=== PATIENT | male | born 1985 | race Caucasian/White ===

== ENCOUNTER 2017-01-03 20:25 | Inpatient (IN) | payer OTHER ==
[2017-01-03] MEDS ORDERED: PANTOPRAZOLE 40 MG/10 ML VIAL IVP STA (20:53)
[2017-01-03] MEDS ORDERED: SODIUM CHLORIDE 0.9% 1,000 ML with MVI, ADULT NO.4 WITH VIT K 10 ML, THIAMINE 100 MG, F... IV ONE ×4 (20:53)
[2017-01-03 21:14] LABS: Basophils # (A) 0.1 k/uL (0-0.2); Basophils % (A) 2 %; CH 34.4; CHCM 33.3; Eosinophils # (A) 0.1 k/uL (0-0.7); Eosinophils % (A) 2 %; HCT 47.8 % (39.0-53.0); HDW 2.21; HGB 15.4 gm/dL (13.0-17.5); Luc % (Auto) 4; Lymphocytes # (A) 1.5 k/uL (1.0-4.8); Lymphocytes % (A) 31 %; MCH 33.5 pg (25.0-35.0); MCHC 32.3 g/dL (31.0-37.0); MCV 103.8 fL (80.0-100.0); Macrocytosis Slight; Mean Platelet Volume 7.4; Monocytes # (A) 0.6 k/uL (0-1.0); Monocytes % (A) 12 %; Neutrophils # (A) 2.5 k/uL (1.3-7.7); Neutrophils % (A) 50 %; RBC 4.61 m/uL (4.30-5.90); RDW 14.7 % (11.5-15.5); WBC 4.9 k/uL (3.8-10.6); WBC (Perox) 4.91
[2017-01-03 21:23] LABS: ALT 181 U/L (21-72); AST 425 U/L (17-59); Alkaline Phosphatase 205 U/L (38-126); Amylase 79 U/L (30-110); Anion Gap 17 mmol/L; Blood Urea Nitrogen 10 mg/dL (9-20); Calcium 8.9 mg/dL (8.4-10.2); Carbon Dioxide 22 mmol/L (22-30); Chloride 109 mmol/L (98-107); Glucose 184 mg/dL (74-99); Non-African American GFR(MDRD) >60 (>60 ml/min/1.73 sqM); Sodium 148 mmol/L (137-145); Total Bilirubin 0.7 mg/dL (0.2-1.3); Total Protein 7.8 g/dL (6.3-8.2)
[2017-01-03 21:30] LABS: Partial Thromboplastin Time 22.7 sec (22.0-30.0); Prothrombin Time 10.1 sec (9.0-12.0)
[2017-01-03 21:34] LABS: Creatine Kinase 690 U/L (55-170)
[2017-01-03 21:35] LABS: Alcohol 511 mg/dL
--- NOTE | 2017-01-03 21:44 | ED ---
Alcohol HPI - General Chief Complaint: Alcohol Stated Complaint: Chest pain,ETOH Time Seen by Provider: 01/03/17 20:27 Source: patient, EMS Mode of arrival: EMS Limitations: no limitations - History of Present Illness Initial Comments: 31-year-old male patient presents to emergency department today by EMS for complaints of chest pain, abdominal pain, and hematemesis. Patient states that he he does drink at least 1 pint of liquor daily. Patient states that he has had at least 1 pint today. Patient states that when he doesn't drink his normal amount he does have vomiting. He states last time this happened was 2 days ago. He states that he did notice some bright red blood in his vomit. Patient states he has been having mid epigastric pain and chest pain since this occurred. Patient states he does occasionally feel short of breath. Patient denies any fever or chills. Patient denies any dizziness, weakness, back pain, constipation, or diarrhea. Patient denies any hematuria, dysuria, urinary urgency, urinary frequency, dark, bloody, or black stools. Patient denies any use of street drugs. - Related Data Allergies Allergy/AdvReac Type Severity Reaction Status Date / Time No Known Allergies Allergy Verified 01/03/17 20:38 Review of Systems ROS Statement: Those systems with pertinent positive or pertinent negative responses have been documented in the HPI. ROS Other: All systems not noted in ROS Statement are negative. Past Medical History Additional Past Medical History / Comment(s): ETOH abuse History of Any Multi-Drug Resistant Organisms: None Reported Past Surgical History: No Surgical Hx Reported Past Psychological History: No Psychological Hx Reported Smoking Status: Current every day smoker Past Alcohol Use History: Abuse, Daily Past Drug Use History: None Reported General Exam Limitations: no limitations General appearance: alert, in no apparent distress, appears intoxicated Head exam: Present: atraumatic, normocephalic, normal inspection Eye exam: Present: normal appearance, PERRL, EOMI. Absent: scleral icterus, conjunctival injection, periorbital swelling ENT exam: Present: normal exam, normal oropharynx, mucous membranes moist Neck exam: Present: normal inspection. Absent: tenderness, meningismus, lymphadenopathy Respiratory exam: Present: normal lung sounds bilaterally. Absent: respiratory distress, wheezes, rales, rhonchi, stridor Cardiovascular Exam: Present: regular rate, normal rhythm, normal heart sounds. Absent: systolic murmur, diastolic murmur, rubs, gallop, clicks GI/Abdominal exam: Present: soft, tenderness (Right upper quadrant, mid epigastric, left upper quadrant abdominal ), normal bowel sounds. Absent: distended, guarding, rebound, rigid, organomegaly (tenderness), mass Extremities exam: Present: normal inspection, full ROM, normal capillary refill. Absent: tenderness, pedal edema, joint swelling, calf tenderness Back exam: Present: normal inspection Neurological exam: Present: alert, oriented X3, CN II-XII intact Psychiatric exam: Present: normal affect, normal mood Skin exam: Present: warm, dry, intact, normal color. Absent: rash Course Vital Signs 01/03/17 01/03/17 01/03/17 20:32 21:05 21:59 Temperature 98.1 F 98.0 F Pulse Rate 129 H 115 H Pulse Rate [ 128 H Negative Retoucher ] Respiratory 18 20 Rate Blood Pressure 151/105 158/98 O2 Sat by Pulse 94 L 96 Oximetry 01/03/17 22:25 Temperature Pulse Rate 118 H Pulse Rate [ Negative Retoucher ] Respiratory 20 Rate Blood Pressure 156/89 O2 Sat by Pulse 98 Oximetry Medical Decision Making - Medical Decision Making 31-year-old male patient presented to emergency department today with complaints of chest pain, abdominal pain, and hematemesis. Labs were performed did show elevated liver enzymes as well as elevated lipase. Patient's alcohol level is 511. Dr. Solis did discuss the case with Dr. London patient will be admitted to [facility]. Dr. Lnodon states he will handle consults tomorrow. CIWA scale and alcohol withdrawal protocol ordered. - Lab Data Result diagrams: 01/03/17 20:30 01/03/17 20:30 Lab Results 01/03/17 01/03/17 01/03/17 Range/Units 20:30 20:30 20:30 WBC 4.9 (3.8-10.6) k/uL RBC 4.61 (4.30-5.90) m/uL Hgb 15.4 (13.0-17.5) gm/dL Hct 47.8 (39.0-53.0) % MCV 103.8 H (80.0-100.0) fL MCH 33.5 (25.0-35.0) pg MCHC 32.3 (31.0-37.0) g/dL RDW 14.7 (11.5-15.5) % Plt Count 241 (150-450) k/uL Neutrophils % 50 % Lymphocytes % 31 % Monocytes % 12 % Eosinophils % 2 % Basophils % 2 % Neutrophils # 2.5 (1.3-7.7) k/uL Lymphocytes # 1.5 (1.0-4.8) k/uL Monocytes # 0.6 (0-1.0) k/uL Eosinophils # 0.1 (0-0.7) k/uL Basophils # 0.1 (0-0.2) k/uL Macrocytosis Slight PT (9.0-12.0) sec INR (<1.2) APTT (22.0-30.0) sec Sodium 148 H (137-145) mmol/L Potassium 4.0 (3.5-5.1) mmol/L Chloride 109 H (98-107) mmol/L Carbon Dioxide 22 (22-30) mmol/L Anion Gap 17 mmol/L BUN 10 (9-20) mg/dL Creatinine 0.80 (0.66-1.25) mg/dL Est GFR (MDRD) Af Amer >60 (>60 ml/min/1.73 sqM) Est GFR (MDRD) Non-Af >60 (>60 ml/min/1.73 sqM) Glucose 184 H (74-99) mg/dL Calcium 8.9 (8.4-10.2) mg/dL Total Bilirubin 0.7 (0.2-1.3) mg/dL AST 425 H (17-59) U/L ALT 181 H (21-72) U/L Alkaline Phosphatase 205 H (38-126) U/L Total Creatine Kinase 690 H (55-170) U/L CK-MB (CK-2) 3.0 H* (0.0-2.4) ng/mL CK-MB (CK-2) Rel Index 0.4 Troponin I <0.012 (0.000-0.034) ng/mL Total Protein 7.8 (6.3-8.2) g/dL Albumin 4.1 (3.5-5.0) g/dL Amylase 79 (30-110) U/L Lipase 619 H (23-300) U/L Serum Alcohol 511 mg/dL 01/03/17 Range/Units 20:30 WBC (3.8-10.6) k/uL RBC (4.30-5.90) m/uL Hgb (13.0-17.5) gm/dL Hct (39.0-53.0) % MCV (80.0-100.0) fL MCH (25.0-35.0) pg MCHC (31.0-37.0) g/dL RDW (11.5-15.5) % Plt Count (150-450) k/uL Neutrophils % % Lymphocytes % % Monocytes % % Eosinophils % % Basophils % % Neutrophils # (1.3-7.7) k/uL Lymphocytes # (1.0-4.8) k/uL Monocytes # (0-1.0) k/uL Eosinophils # (0-0.7) k/uL Basophils # (0-0.2) k/uL Macrocytosis PT 10.1 (9.0-12.0) sec INR 1.0 (<1.2) APTT 22.7 (22.0-30.0) sec Sodium (137-145) mmol/L Potassium (3.5-5.1) mmol/L Chloride (98-107) mmol/L Carbon Dioxide (22-30) mmol/L Anion Gap mmol/L BUN (9-20) mg/dL Creatinine (0.66-1.25) mg/dL Est GFR (MDRD) Af Amer (>60 ml/min/1.73 sqM) Est GFR (MDRD) Non-Af (>60 ml/min/1.73 sqM) Glucose (74-99) mg/dL Calcium (8.4-10.2) mg/dL Total Bilirubin (0.2-1.3) mg/dL AST (17-59) U/L ALT (21-72) U/L Alkaline Phosphatase (38-126) U/L Total Creatine Kinase (55-170) U/L CK-MB (CK-2) (0.0-2.4) ng/mL CK-MB (CK-2) Rel Index Troponin I (0.000-0.034) ng/mL Total Protein (6.3-8.2) g/dL Albumin (3.5-5.0) g/dL Amylase (30-110) U/L Lipase (23-300) U/L Serum Alcohol mg/dL 01/03/17 22:12 EKG obtained at 2032 reveals sinus tachycardia with a ventricular rate of 128, UT interval 1:30, QRS duration 88, QT 308, QTC 449. - Radiology Data Radiology results: report reviewed, image reviewed 2 frontal upright views of the abdomen and pelvis show right diaphragm is excluded from the of view. Some air within the nondistended stomach, small Marge bowel loops. No free air is identified although the right diaphragm is excluded from the field of view. Bones and joints are unremarkable. Impression by Dr. Addison reveals somewhat limited exam, with grossly normal bowel gas pattern and without evidence of free air seen as above. Two-view x-ray of the chest shows unremarkable lungs with no consolidation, pleural spaces unremarkable with no effusion or pneumothorax, as unremarkable no cardiomegaly. Mediastinum is unremarkable, bones and joints are unremarkable , upper abdomen shows minor elevation or eventration of the right diaphragm. Impression by Dr. Addison reveals no acute process within the chest. Disposition Clinical Impression: Alcohol intoxication, Abdominal pain, Pancreatitis Disposition: ADMITTED IP TO THIS [facility] Condition: Fair Referrals: None,Stated [Primary Care Provider] - 1-2 days Decision to Admit Reason: Admit from EC Decision Date: 01/03/17 Decision Time: 22:16
[2017-01-03 21:48] LABS: Troponin I <0.012 ng/mL (0.000-0.034)
[2017-01-03] MEDS ORDERED: NALOXONE 0.4 MG/ML 1 ML VIAL IV PRN (22:00)
[2017-01-03] MEDS ORDERED: LORazepam 2 MG/ML SYRINGE IV PRN ×2 (22:10)
[2017-01-03] MEDS ORDERED: NICOTINE 21MG/24HR PATCH TRANSDERM STA (22:11)
--- NOTE | 2017-01-03 22:44 | XR ---
EXAM: XR Chest, 2 Views CLINICAL HISTORY: Reason: Chest pain. TECHNIQUE: Frontal and lateral views of the chest. COMPARISON: No relevant prior studies available. FINDINGS: Lungs: Unremarkable. No consolidation. Pleural space: Unremarkable. No effusion or pneumothorax. Heart: Unremarkable. No cardiomegaly. Mediastinum: Unremarkable. Bones/joints: Unremarkable. Upper abdomen: Mild elevation or eventration of the right diaphragm. IMPRESSION: No acute process seen within the chest.
--- NOTE | 2017-01-03 22:48 | XR ---
EXAM: XR Abdomen, 1 View CLINICAL HISTORY: Reason: Pain TECHNIQUE: 2 frontal upright views of the abdomen/pelvis were provided. COMPARISON: No relevant prior studies available. FINDINGS: Limitations: The right diaphragm is excluded from the [id number]. There are several EKG wires and leads overlying the abdomen and pelvis. Gastrointestinal tract: There is some air within nondistended stomach, small and large bowel loops. No free air is identified although the right diaphragm is excluded from the [id number]. Bones/joints: Unremarkable. IMPRESSION: Somewhat limited exam, with grossly normal bowel gas pattern and without evidence of free air seen, as above.
[2017-01-04 07:11] LABS: Basophils % (A) 1 %; CH 34.4; CHCM 33.5; Eosinophils # (A) 0.1 k/uL (0-0.7); Eosinophils % (A) 1 %; HDW 2.22; HGB 14.4 gm/dL (13.0-17.5); Luc # (Auto) 0.14; Luc % (Auto) 3; Lymphocytes # (A) 1.4 k/uL (1.0-4.8); Lymphocytes % (A) 31 %; MCHC 31.9 g/dL (31.0-37.0); MCV 103.2 fL (80.0-100.0); Macrocytosis Slight; Mean Platelet Volume 7.4; Monocytes # (A) 0.5 k/uL (0-1.0); Monocytes % (A) 12 %; Neutrophils # (A) 2.4 k/uL (1.3-7.7); Neutrophils % (A) 52 %; RBC 4.36 m/uL (4.30-5.90); RDW 14.8 % (11.5-15.5); WBC 4.6 k/uL (3.8-10.6); WBC (Perox) 4.31
[2017-01-04] MEDS: LORazepam 2 MG/ML SYRINGE IV PRN ×7 (07:18→21:47)
[2017-01-04 07:37] LABS: ALT 177 U/L (21-72); AST 398 U/L (17-59); Alkaline Phosphatase 163 U/L (38-126); Anion Gap 11 mmol/L; Blood Urea Nitrogen 7 mg/dL (9-20); Calcium 8.5 mg/dL (8.4-10.2); Carbon Dioxide 27 mmol/L (22-30); Chloride 104 mmol/L (98-107); Glucose 89 mg/dL (74-99); Non-African American GFR(MDRD) >60 (>60 ml/min/1.73 sqM); Potassium 3.8 mmol/L (3.5-5.1); Sodium 142 mmol/L (137-145); Total Bilirubin 0.8 mg/dL (0.2-1.3); Total Protein 7.5 g/dL (6.3-8.2)
[2017-01-04] MEDS ORDERED: NICOTINE 21MG/24HR PATCH TRANSDERM SCH (09:00)
[2017-01-04] MEDS ORDERED: PANTOPRAZOLE 40 MG/10 ML VIAL IV SCH (09:00)
[2017-01-04] MEDS ORDERED: HALOPERIDOL LACTATE 5 MG/ML 1 ML VIAL IM PRN (13:02)
[2017-01-04] MEDS ORDERED: cloNIDine HCL 0.1 MG TAB PO PRN (16:22)
[2017-01-04] MEDS ORDERED: hydrALAZINE HCL 20 MG/ML 1 ML VIAL IVP PRN (16:22)
[2017-01-04] MEDS ORDERED: SODIUM CHLORIDE 0.9% 1,000 ML with MVI, ADULT NO.4 WITH VIT K 10 ML, THIAMINE 100 MG, F... IV SCH ×4 (16:30)
[2017-01-04 16:51] LABS: Glucose,Whole Blood 98 mg/dL (75-99)
[2017-01-04] MEDS: cloNIDine HCL 0.1 MG TAB PO SCH ×2 (17:49→21:48)
[2017-01-04] MEDS ORDERED: ONDANSETRON 4 MG/2 ML VIAL IVP PRN (18:15)
[2017-01-04] MEDS ORDERED: ENOXAPARIN 40 MG/0.4 ML SYRINGE SQ SCH (18:15)
[2017-01-04] MEDS ORDERED: METOPROLOL TARTRATE 5 MG/5 ML VIAL IVP PRN (20:02)
[2017-01-04 21:15] VITALS: TEMP 98.3
[2017-01-04] MEDS ORDERED: NAPROXEN 250 MG TAB PO SCH (22:00)
[2017-01-04 22:31] VITALS: BP 184/108; PULSE 96; RESP 16
--- NOTE | 2017-01-05 14:38 | HP ---
DATE OF SERVICE: 01/04/2017 Chief complaints are EtOH. HISTORY OF PRESENT ILLNESS: This is a 31-year-old gentleman who has a past medical history of EtOH abuse, was admitted with EtOH abuse. The patient also complaining of some abdominal pain, chest pain and as well as hematemesis. Patient at least takes 1 pint of drinks every day. There is no history of fever , chills or rigors. No history of headache, loss of consciousness. PAST MEDICAL HISTORY: EtOH, history of nicotine dependence. Medications prior to admission include, home medication are none. ALLERGIES: None. FAMILY HISTORY: None. SOCIAL HISTORY: History of alcohol. History of nicotine dependence. REVIEW OF SYSTEM: ENT: No diminished hearing or diminished vision. CARDIOVASCULAR: No angina, otherwise as mentioned earlier. RESPIRATORY: As mentioned earlier. GI: As mentioned earlier. : No dysuria. NERVOUS SYSTEM: No numbness or weakness. ALLERGY/IMMUNOLOGY: No asthma or hay fever. MUSCULOSKELETAL: As mentioned earlier. HEMATOLOGY: No history of anemia. ENDOCRINE: No history of diabetes or hypothyroidism. CONSTITUTIONAL: As mentioned earlier. DERMATOLOGY: Negative. PSYCHIATRY: As mentioned earlier. PHYSICAL EXAM: The patient is alert and oriented x3. The pulse is 109, blood pressure 117/60, respirations 16, temperature is 98.1, pulse ox 93% on room air. HEENT: Conjunctivae normal. NECK: Normal. CARDIOVASCULAR SYSTEM: S1, S2, muffled. RESPIRATORY: Breath sounds diminished at the bases, scattered rhonchi, no crackles. ABDOMEN: Soft, nontender, no mass palpable. LEFT: No edema, no swelling. NERVOUS SYSTEM: No focal deficits. Labs are MCV 103.2, sodium 142, AST is 392 and ALT is 177. ASSESSMENT: 1. Acute alcohol intoxication. 2. Early delirium tremens. 3. Alcoholic hepatitis. 4. History of nicotine dependence. 5. Polysubstance abuse. RECOMMENDATION: In this 31-year-old gentlemen who presented with multiple complex medical issues. Will continue with the current medication, continue with the symptomatic treatment. Local IV fluids. Repeat labs. Social Work consultation. Guarded prognosis because of multiple complex medical issues. Further recommendations to follow. MTDD
--- NOTE | 2017-02-22 07:51 | DS ---
DISCHARGE SUMMARY FINAL DIAGNOSIS: 1. Acute alcohol intoxication. 2. Early delirium tremens. 3. Alcohol hepatitis. 4. History of nicotine dependence. DISCHARGE DISPOSITION: The patient left the hospital AGAINST MEDICAL ADVICE. HISTORY OF PRESENT ILLNESS: This 31-year-old gentleman admitted with alcohol intoxication and multiple other complex medical issues, being closely monitored in ICU but however the patient left the hospital against medical advice. The prognosis remains guarded. Please refer to the previous dictations and staff notes for further information. MMODL / IJN: [id number] /
== END 2017-01-04 23:02 | disposition left against medical advice (07) | DRG 894 ==
LOC: EC 20:25 → 3SUR 23:02 → 6ICU 01-04 16:52
PROVIDERS: ADMIT Internal Medicine; ATTEND Internal Medicine
DX: F10.231 Alcohol dependence with withdrawal delirium (principal); K92.0 Hematemesis; K70.10 Alcoholic hepatitis without ascites; F17.200 Nicotine dependence, unspecified, uncomplicated; Y90.8 Blood alcohol level of 240 mg/100 ml or more; F19.10 Other psychoactive substance abuse, uncomplicated
CPT/HCPCS: 36415; 71020; 74000; 80053; 80320; 82150; 82550; 82553; 83690; 84484; 85025; 85610; 85730; 93005; 96365; 96366; 96375; 99285

== ENCOUNTER 2017-02-05 22:33 | Inpatient (IN) | payer OTHER ==
[2017-02-05] MEDS ORDERED: PANTOPRAZOLE 40 MG/10 ML VIAL IVP STA (22:50)
[2017-02-05] MEDS ORDERED: SODIUM CHLORIDE 0.9% 1,000 ML with MVI, ADULT NO.4 WITH VIT K 10 ML, THIAMINE 100 MG, F... IV ONE ×4 (22:50)
--- NOTE | 2017-02-05 23:28 | ED ---
General Adult HPI <Yaniv Beth - Last Filed: 02/06/17 00:05> - General Source: patient Mode of arrival: EMS Limitations: no limitations <Sheila Price - Last Filed: 02/06/17 00:49> - General Chief complaint: Alcohol Stated complaint: ETOH Time Seen by Provider: 02/05/17 22:43 - History of Present Illness Initial comments: 31-year-old male patient presented to emergency department today after having one episode of hematemesis. Patient states just prior to arrival he had an episode of vomiting of bright red blood. Patient states that he is having some chest and epigastric pain with this. Patient states that he has had hematemesis in the past, however has not followed up with surgeon for further evaluation. The patient does admit to being an alcoholic, states he drinks at least a pint of liquor daily, he admits to being intoxicated at this time. Patient states that he would like help getting treatment for alcohol abuse. Patient states he would like to go to [place]. Patient denies any recent fever, chills, shortness breath, diarrhea, constipation, back pain, numbness, tingling, weakness, hematuria, headache, or visual changes. He denies any dark, bloody, or black stools. He denies any suicidal or homicidal ideation. Denies any use of street drugs. (Sheila Price) - Related Data Home Medications Medication Instructions Recorded Confirmed Ativan Unknown Dose 1 tab PO DAILY PRN 02/05/17 02/05/17 Allergies Allergy/AdvReac Type Severity Reaction Status Date / Time No Known Allergies Allergy Verified 02/05/17 23:37 Review of Systems ROS Other: All systems not noted in ROS Statement are negative. <Yaniv Beth - Last Filed: 02/06/17 00:05> ROS Other: All systems not noted in ROS Statement are negative. <Sheila Price - Last Filed: 02/06/17 00:49> ROS Statement: Those systems with pertinent positive or pertinent negative responses have been documented in the HPI. Past Medical History Past Medical History: Hypertension Additional Past Medical History / Comment(s): ETOH abuse History of Any Multi-Drug Resistant Organisms: None Reported Past Surgical History: No Surgical Hx Reported Past Anesthesia/Blood Transfusion Reactions: No Reported Reaction Past Psychological History: No Psychological Hx Reported Smoking Status: Current every day smoker Past Alcohol Use History: Abuse, Daily Past Drug Use History: None Reported <ShantellSheila freeman - Last Filed: 02/06/17 00:49> General Exam Limitations: no limitations General appearance: alert, in no apparent distress, appears intoxicated Head exam: Present: atraumatic, normocephalic, normal inspection Eye exam: Present: normal appearance, PERRL, EOMI. Absent: scleral icterus, conjunctival injection, periorbital swelling ENT exam: Present: normal exam, normal oropharynx, mucous membranes moist Respiratory exam: Present: normal lung sounds bilaterally. Absent: respiratory distress, wheezes, rales, rhonchi, stridor Cardiovascular Exam: Present: regular rate, normal rhythm, normal heart sounds. Absent: systolic murmur, diastolic murmur, rubs, gallop, clicks GI/Abdominal exam: Present: soft, tenderness (Midepigastric, right upper quadrant, left upper quadrant tenderness), normal bowel sounds. Absent: distended, guarding, rebound, rigid Extremities exam: Present: normal inspection, full ROM, normal capillary refill. Absent: tenderness, pedal edema, joint swelling, calf tenderness Back exam: Present: normal inspection Neurological exam: Present: alert, oriented X3, CN II-XII intact Psychiatric exam: Present: normal affect, normal mood Skin exam: Present: warm, dry, intact, normal color. Absent: rash <Sheila Price - Last Filed: 02/06/17 00:49> Medical Decision Making - Lab Data Result diagrams: 02/05/17 23:09 <Yaniv Beth - Last Filed: 02/06/17 00:05> - Lab Data Result diagrams: 02/05/17 23:55 02/05/17 23:09 <Sheila Price - Last Filed: 02/06/17 00:49> - Medical Decision Making Case discussed with practitioner Tracey vogt, who will admit for Dr. Montiel, covering for hospital call. (Yaniv Beth) 31-year-old male patient presented for evaluation of alcohol intoxication and one episode of hematemesis at home. Patient states that he would like further evaluation of the blood in his vomit as well as assistance with admission to [facility] re[facility] facility. Lab work was performed and did show a hemoglobin of 15.2. Patient did have some increase in lipase level at 322, increased AST at 289, increased ALT at 96. Alk phos is 146. All of these levels are improved from last admission. Patient will be admitted to the hospital for alcohol intoxication as his alcohol level was 488. CIWA and alcohol withdraw protocol entered. GI has been consulted. hide and skin processing worker consult for assistance with [facility] has been entered as well. Case discussed with my attending Dr. Beth we will admit to [facility] hospitalist group. (Sheila Price) - Lab Data Lab Results 02/05/17 02/05/17 02/05/17 Range/Units 23:09 23:09 23:55 WBC 6.7 (3.8-10.6) k/uL RBC 4.34 (4.30-5.90) m/uL Hgb 15.2 (13.0-17.5) gm/dL Hct 44.4 (39.0-53.0) % MCV 102.3 H (80.0-100.0) fL MCH 35.1 H (25.0-35.0) pg MCHC 34.3 (31.0-37.0) g/dL RDW 13.7 (11.5-15.5) % Plt Count 181 (150-450) k/uL Neutrophils % 58 % Lymphocytes % 27 % Monocytes % 7 % Eosinophils % 2 % Basophils % 1 % Neutrophils # 3.9 (1.3-7.7) k/uL Lymphocytes # 1.8 (1.0-4.8) k/uL Monocytes # 0.5 (0-1.0) k/uL Eosinophils # 0.2 (0-0.7) k/uL Basophils # 0.1 (0-0.2) k/uL Macrocytosis Slight PT 10.9 (9.0-12.0) sec INR 1.1 (<1.2) APTT 23.3 (22.0-30.0) sec Sodium 141 (137-145) mmol/L Potassium 5.0 (3.5-5.1) mmol/L Chloride 106 (98-107) mmol/L Carbon Dioxide 22 (22-30) mmol/L Anion Gap 13 mmol/L BUN 8 L (9-20) mg/dL Creatinine 0.70 (0.66-1.25) mg/dL Est GFR (MDRD) Af Amer >60 (>60 ml/min/1.73 sqM) Est GFR (MDRD) Non-Af >60 (>60 ml/min/1.73 sqM) Glucose 122 H (74-99) mg/dL Calcium 8.7 (8.4-10.2) mg/dL Phosphorus 4.3 (2.5-4.5) mg/dL Magnesium 2.0 (1.6-2.3) mg/dL Total Bilirubin 1.2 (0.2-1.3) mg/dL AST 289 H (17-59) U/L ALT 96 H (21-72) U/L Alkaline Phosphatase 146 H (38-126) U/L Total Protein 8.4 H (6.3-8.2) g/dL Albumin 4.3 (3.5-5.0) g/dL Amylase 62 (30-110) U/L Lipase 322 H (23-300) U/L Serum Alcohol 488 mg/dL Disposition <Yaniv Beth - Last Filed: 02/06/17 00:05> Decision to Admit Reason: Admit from EC Decision Date: 02/06/17 Decision Time: 00:32 <Sheila Price - Last Filed: 02/06/17 00:49> Clinical Impression: Alcohol intoxication, Hematemesis Disposition: ADMITTED IP TO THIS [facility] Condition: Fair Referrals: None,Stated [Primary Care Provider] - 1-2 days
[2017-02-05 23:31] LABS: INR 1.1 (<1.2); Partial Thromboplastin Time 23.3 sec (22.0-30.0); Prothrombin Time 10.9 sec (9.0-12.0)
[2017-02-05 23:34] LABS: ALT 96 U/L (21-72); AST 289 U/L (17-59); Alkaline Phosphatase 146 U/L (38-126); Amylase 62 U/L (30-110); Anion Gap 13 mmol/L; Blood Urea Nitrogen 8 mg/dL (9-20); Calcium 8.7 mg/dL (8.4-10.2); Carbon Dioxide 22 mmol/L (22-30); Chloride 106 mmol/L (98-107); Glucose 122 mg/dL (74-99); Non-African American GFR(MDRD) >60 (>60 ml/min/1.73 sqM); Phosphorous 4.3 mg/dL (2.5-4.5); Sodium 141 mmol/L (137-145); Total Bilirubin 1.2 mg/dL (0.2-1.3); Total Protein 8.4 g/dL (6.3-8.2)
[2017-02-05 23:54] LABS: Alcohol 488 mg/dL
[2017-02-06] MEDS ORDERED: THIAMINE 100 MG/ML 2 ML VIAL IM STA (00:25)
[2017-02-06] MEDS ORDERED: LORazepam 2 MG/ML SYRINGE IV PRN ×2 (00:25)
[2017-02-06 00:26] LABS: Basophils # (A) 0.1 k/uL (0-0.2); Basophils % (A) 1 %; CHCM 33.4; Eosinophils # (A) 0.2 k/uL (0-0.7); Eosinophils % (A) 2 %; HCT 44.4 % (39.0-53.0); HDW 2.22; HGB 15.2 gm/dL (13.0-17.5); Luc % (Auto) 4; Lymphocytes # (A) 1.8 k/uL (1.0-4.8); Lymphocytes % (A) 27 %; MCH 35.1 pg (25.0-35.0); MCHC 34.3 g/dL (31.0-37.0); MCV 102.3 fL (80.0-100.0); Macrocytosis Slight; Mean Platelet Volume 7.1; Monocytes # (A) 0.5 k/uL (0-1.0); Monocytes % (A) 7 %; Neutrophils # (A) 3.9 k/uL (1.3-7.7); Neutrophils % (A) 58 %; RBC 4.34 m/uL (4.30-5.90); RDW 13.7 % (11.5-15.5); WBC 6.7 k/uL (3.8-10.6); WBC (Perox) 6.68
[2017-02-06] MEDS ORDERED: NALOXONE 0.4 MG/ML 1 ML VIAL IV PRN (00:26)
--- NOTE | 2017-02-06 00:49 | XR ---
EXAM: XR Abdomen Complete, 2 or More Views CLINICAL HISTORY: Reason: Pain TECHNIQUE: Frontal view of the abdomen/pelvis with upright view of the abdomen. COMPARISON: No relevant prior studies available. FINDINGS: Intraperitoneal space: No free air. Gastrointestinal tract: Nonspecific bowel gas pattern with air fluid levels. Bones/joints: No acute fracture. IMPRESSION: Nonspecific bowel gas pattern with air fluid levels.
[2017-02-06] MEDS ORDERED: NICOTINE 21MG/24HR PATCH TRANSDERM STA (00:52)
[2017-02-06] MEDS: LORazepam 2 MG/ML SYRINGE IV PRN ×6 (01:43→18:54)
[2017-02-06] MEDS: PANTOPRAZOLE 40 MG/10 ML VIAL IV SCH ×2 (08:03→20:08)
[2017-02-06] MEDS ORDERED: PANTOPRAZOLE 40 MG/10 ML VIAL IV SCH (09:00)
[2017-02-06] MEDS ORDERED: NICOTINE 21MG/24HR PATCH TRANSDERM SCH (09:00)
--- NOTE | 2017-02-06 09:37 | P.CONS ---
History of Present Illness - Reason for Consult Consult date: 02/06/17 hematemesis Requesting physician: Itz Norman - History of Present Illness 31-year-old male with a history of IVDA heroin abuse clean for a year, heavy alcohol abuse on a daily basis; vodka, for more than a year presents with abdominal pain blood-tinged emesis 2. Patient attempted to wean himself off of alcohol a few days ago started to shake, vomit. No history of GI bleed. Denies hematochezia or melena. No fever or chills. White count 6.7. Hemoglobin 15.2. Platelet 181 and INR 1.1. BUN 8. Creatinine 0.7. No recurrence of hematemesis since admission. Total bilirubin 1.2. AST 289. ALT 96. Lipase 322. Serum alcohol 488. KUB nonspecific bowel gas pattern. No NSAIDs aspirin antiplatelet medications. Review of Systems Constitutional: Denies fever, chills, sweats, weight gain, or loss. HEENT: Negative for migraines, blurred vision or loss, earaches, drainage, tinnitus, oral mucosal lesions, dysphagia, or odynophagia. Cardiac: Negative for chest pain, arrhythmias, or palpitation. Respiratory: Negative for shortness of breath, hemoptysis, cough, or sputum production. Gastrointestinal: See HPI for pertinent findings. Genitourinary: Negative for hematuria, urgency, frequency, polyuria, dysuria, or penile discharge. Musculoskeletal: Negative for muscle aches, swelling, arthritis, and arthralgias. Neurologic: Negative for stroke or TIA. Endocrine: Negative for thyroid problems. Skin: Negative for rash or itching. Psychiatric: Anxiety. All systems: negative (See HPI) Past Medical History Past Medical History: Hypertension Additional Past Medical History / Comment(s): ETOH abuse, IVDA History of Any Multi-Drug Resistant Organisms: None Reported Past Surgical History: No Surgical Hx Reported Past Anesthesia/Blood Transfusion Reactions: No Reported Reaction Past Psychological History: Anxiety Smoking Status: Current every day smoker Past Alcohol Use History: Abuse, Daily Additional Past Alcohol Use History / Comment(s): REHAB x5 Past Drug Use History: None Reported Additional Drug Use History / Comment(s): CLEAN FROM HEROIN FOR 1 YEAR - Past Family History Father Family Medical History: No Reported History Medications and Allergies Home Medications Medication Instructions Recorded Confirmed Type Ativan Unknown Dose 1 tab PO DAILY PRN 02/05/17 02/05/17 History Allergies Allergy/AdvReac Type Severity Reaction Status Date / Time No Known Allergies Allergy Verified 02/05/17 23:37 Physical Exam Vitals: Vital Signs Temp Pulse Pulse Resp BP BP Pulse Ox 02/06/17 07:00 98.2 F 109 H 18 159/93 96 02/06/17 02:41 110 H 140/92 02/06/17 01:45 98.6 F 117 H 16 146/114 97 02/06/17 01:13 98.4 F 96 16 178/84 100 02/06/17 00:38 94 16 184/87 100 02/05/17 23:41 98.3 F 90 16 155/98 100 02/05/17 22:34 97.8 F 70 16 173/109 100 Intake and Output 02/05/17 02/06/17 02/06/17 22:59 06:59 14:59 Other: # Voids 2 1 Weight 94.801 kg General appearance: The patient is alert, oriented, in no acute distress. HET: Head is normocephalic and atraumatic. Pupils are equal and reactive. Oropharynx is clear without lesions. Neck: Supple without lymphadenopathy. Trachea midline. Heart: S1 S2. Regular rate and rhythm. Lungs: No crackles or wheezes are heard. Abdomen: Soft, very mild midepigastric tenderness, nondistended with bowel sounds. No peritoneal signs. No palpable organomegaly or masses. Extremities: Normal skin color and turgor. No cyanosis, rash, ulceration, clubbing, or edema. Radial and pedal pulses are 2/4 bilaterally. Neurological: No focal deficits. Strength and sensation are grossly intact. Results CBC & Chem 7: 02/05/17 23:55 02/05/17 23:09 Labs: Abnormal Lab Results - Last 24 Hours (Table) 02/05/17 02/05/17 Range/Units 23:09 23:55 MCV 102.3 H (80.0-100.0) fL MCH 35.1 H (25.0-35.0) pg BUN 8 L (9-20) mg/dL Glucose 122 H (74-99) mg/dL AST 289 H (17-59) U/L ALT 96 H (21-72) U/L Alkaline Phosphatase 146 H (38-126) U/L Total Protein 8.4 H (6.3-8.2) g/dL Lipase 322 H (23-300) U/L Assessment and Plan (1) Hematemesis Narrative/Plan: Suspect alcohol gastritis esophagitis possible alcohol gastropathy Status: Acute (2) ETOH abuse Status: Acute (3) Alcoholic hepatitis Status: Acute (4) History of heroin abuse Status: Acute (5) Alcohol intoxication Status: Acute (6) Alcohol withdrawal Status: Acute Plan: 1. Hepatitis panel. [place] protocol. 2. Protonix 40 mg IV twice daily. 3. Clear liquid diet. 4. Upper endoscopy contingent on clinical course. We'll continue to follow closely. Thank you for this kind referral and the opportunity to participate in the care of your patient. This consultation was discussed with Dr. Bean. The impression and plan of care have been directed as dictated.
[2017-02-06 15:18] LABS: Hepatitis B Surface Ag Index 0.08
[2017-02-06 15:22] LABS: Hepatitis B Core IgM Index 0.02
[2017-02-06 15:33] LABS: Hepatitis C Virus IgG Ab Reactive (Negative)
[2017-02-06 16:36] VITALS: BP 144/101; PULSE 116; RESP 20; TEMP 98.8
[2017-02-06] MEDS ORDERED: THIAMINE 100 MG TAB PO SCH (17:00)
--- NOTE | 2017-02-06 18:56 | P.HPIM ---
History of Present Illness H&P Date: 02/06/17 Chief Complaint: Intoxication Is a 31-year-old gentleman with history of alcohol overuse comes in to the hospital with the complaints of the one episode of hematemesis. The patient apparently has been trying to cut down on his alcohol use apparently drinks or fifth of alcohol daily. Patient then noted to have an episode of bloody emesis hence came to the hospital for further workup patient was noted to have a hemoglobin around 15 g per DL No new reports of flow emesis since his hospitalization The patient however was also noted to have a blood alcohol around 489. The patient also was noted to have a reactive hepatitis C Transaminases were also elevated during my evaluation patient states that his symptoms are controlled however does continue to have some headaches and tremoring Patient MC was greater than 104 Denies having any chest pain difficulty breathing nausea vomiting diarrhea A 14 point review of systems was done nonpertinent then all as mentioned above Physical examPhysical exam Gen. appearance oriented 3 in no distress Neck is supple no JVD Lungs good air entry clear to auscultation no rhonchi or wheezing Heart S1-S2 heard regular rate and rhythm no murmurs appreciated Abdomen is soft nontender no organomegaly bowel sounds are intact Neurologically cranial nerves II-12 grossly intact no focal motor or sensory deficits noted Does appear to be slightly anxious pupils equal round reactive light and accommodation Skin no abnormalities appreciated Assessment and plan #1 acute alcohol and patient #2 hematemesis likely due to erosive gastritis #3 hepatitis C #4 underlying B12 deficiency Plan Continue supportive care at this time GI is on auscultation Continue PPI therapy Repeat hemoglobin in the a.m. The patient appears to be stable we'll monitor for at least 24 hours and thereafter discharged the patient home there is a significant drop in hemoglobin patient will likely need an upper endoscopy Past Medical History Past Medical History: Hypertension Additional Past Medical History / Comment(s): ETOH abuse, IVDA History of Any Multi-Drug Resistant Organisms: None Reported Past Surgical History: No Surgical Hx Reported Past Anesthesia/Blood Transfusion Reactions: No Reported Reaction Past Psychological History: Anxiety Smoking Status: Current every day smoker Past Alcohol Use History: Abuse, Daily Additional Past Alcohol Use History / Comment(s): REHAB x5 Past Drug Use History: None Reported Additional Drug Use History / Comment(s): CLEAN FROM HEROIN FOR 1 YEAR - Past Family History Father Family Medical History: No Reported History Medications and Allergies Home Medications Medication Instructions Recorded Confirmed Type Ativan Unknown Dose 1 tab PO DAILY PRN 02/05/17 02/05/17 History Allergies Allergy/AdvReac Type Severity Reaction Status Date / Time No Known Allergies Allergy Verified 02/05/17 23:37 Physical Exam Vitals: Vital Signs Temp Pulse Pulse Resp BP BP Pulse Ox 02/06/17 15:00 98.8 F 116 H 20 144/101 97 02/06/17 07:00 98.2 F 109 H 18 159/93 96 02/06/17 02:41 110 H 140/92 02/06/17 01:45 98.6 F 117 H 16 146/114 97 02/06/17 01:13 98.4 F 96 16 178/84 100 02/06/17 00:38 94 16 184/87 100 02/05/17 23:41 98.3 F 90 16 155/98 100 02/05/17 22:34 97.8 F 70 16 173/109 100 Intake and Output 02/06/17 02/06/17 02/06/17 06:59 14:59 22:59 Other: # Voids 2 4 # Bowel Movements 1 Results CBC & Chem 7: 02/05/17 23:55 02/05/17 23:09 Labs: Abnormal Lab Results - Last 24 Hours (Table) 02/05/17 02/05/17 Range/Units 23:09 23:55 MCV 102.3 H (80.0-100.0) fL MCH 35.1 H (25.0-35.0) pg BUN 8 L (9-20) mg/dL Glucose 122 H (74-99) mg/dL AST 289 H (17-59) U/L ALT 96 H (21-72) U/L Alkaline Phosphatase 146 H (38-126) U/L Total Protein 8.4 H (6.3-8.2) g/dL Lipase 322 H (23-300) U/L Thrombosis Risk Factor Assmnt - Choose All That Apply Any of the Below Risk Factors Present?: Yes Each Factor Represents 1 point: Obesity (BMI >25) Other Risk Factors: No Other congenital or acquired thrombophilia - If yes, enter type in comment: No Thrombosis Risk Factor Assessment Total Risk Factor Score: 1 Thrombosis Risk Factor Assessment Level: Low Risk
== END 2017-02-06 20:30 | disposition left against medical advice (07) | DRG 894 ==
LOC: EC 22:33 → 4MS4W 02-06 00:03 → OBSVTOIN 02-06 09:16
PROVIDERS: ADMIT Internal Medicine; ATTEND Internal Medicine
DX: F10.239 Alcohol dependence with withdrawal, unspecified (principal); K70.10 Alcoholic hepatitis without ascites; E53.8 Deficiency of other specified B group vitamins; K29.60 Other gastritis without bleeding; B19.20 Unspecified viral hepatitis C without hepatic coma; Y90.8 Blood alcohol level of 240 mg/100 ml or more; F17.200 Nicotine dependence, unspecified, uncomplicated
CPT/HCPCS: 36415; 74000; 80053; 80074; 80320; 82075; 82150; 83690; 83735; 84100; 85025; 85610; 85730; 96365; 96366; 96372; 96375; 99285

== ENCOUNTER 2017-03-01 14:39 | Inpatient (IN) | payer OTHER ==
[2017-03-01] MEDS ORDERED: THIAMINE 100 MG/ML 2 ML VIAL IM STA (15:05)
[2017-03-01] MEDS ORDERED: LORazepam 2 MG/ML INJ IV PRN (15:05)
[2017-03-01] MEDS ORDERED: MORPHINE SULFATE 2 MG/ML SYRINGE IVP STA (15:06)
[2017-03-01] MEDS ORDERED: SODIUM CHLORIDE 0.9% 500 ML IV STA (15:06)
[2017-03-01] MEDS ORDERED: NITROGLYCERIN OINT 1 INCH/GM PACKET TOPICAL STA (15:06)
[2017-03-01] MEDS ORDERED: ONDANSETRON 4 MG/2 ML VIAL IVP STA (15:06)
[2017-03-01] MEDS ORDERED: SODIUM CHLORIDE 0.9% 1,000 ML IV STA (15:06)
--- NOTE | 2017-03-01 15:16 | ED ---
Chest Pain HPI - General Chief Complaint: Chest Pain Stated Complaint: Chest Pain Time Seen by Provider: 03/01/17 14:44 Source: patient Mode of arrival: EMS Limitations: no limitations - History of Present Illness Initial Comments: 31 years old male some chest pain for the last 2 days, is worse with a deep breaths, he has been coughing up phlegm as well. He has history of October consumption large amount every day for the lost 2 years, he drinks about 12 shots daily, he stated that he is trying to quit yet only 3 shots today. Or drink was put 5 A.m. he is quite shaky quite nervous and concerned that he is going to the DT,s. He denies any headaches or neck stiffness has chest pain or shortness of breath no abdominal pain no frequency urgency dysuria no sinus symptoms of TIA or CVA - Related Data Home Medications Medication Instructions Recorded Confirmed Naproxen Sodium [Aleve] 220 mg PO BID PRN 03/01/17 03/01/17 Allergies Allergy/AdvReac Type Severity Reaction Status Date / Time No Known Allergies Allergy Verified 03/01/17 15:05 Review of Systems ROS Statement: Those systems with pertinent positive or pertinent negative responses have been documented in the HPI. ROS Other: All systems not noted in ROS Statement are negative. EKG Findings - EKG Comments: EKG Findings:: EKG is sinus tachycardia ventricular rate is 112 MI interval is 138 QRS duration is 88 QT/QTc is 332/453 review of this EKG reveals T-wave inversion in lead [address] elevation or ST depression noticed in the rest of the leads Past Medical History Past Medical History: Hypertension Additional Past Medical History / Comment(s): ETOH abuse, IVDA History of Any Multi-Drug Resistant Organisms: None Reported Past Surgical History: No Surgical Hx Reported Past Anesthesia/Blood Transfusion Reactions: No Reported Reaction Past Psychological History: Anxiety Smoking Status: Current every day smoker Past Alcohol Use History: Abuse, Daily Past Drug Use History: None Reported - Past Family History Father Family Medical History: No Reported History General Exam - General Exam Comments Initial Comments: General: The patient is awake and alert, in no distress, and does not appear acutely ill. He is intoxicated but his GCS is 15 Skin: Skin is warm and dry and no rashes or lesions are noted. Eye: Pupils are equal, round and reactive to light, extra-ocular movements are intact; there is normal conjunctiva bilaterally. Ears, nose, mouth and throat: There are moist mucous membranes and no oral lesions. Neck: The neck is supple, there is no tenderness or trachea is midline, no signs of meningitis Cardiovascular: There is a regular rate and rhythm. No murmur, rub or gallop is appreciated. Respiratory: To auscultation bilateral, noticed some crackles at the bases Gastrointestinal: Soft, non-distended, mild tenderness noticed in the epigastric area Back: There is no tenderness to palpation in the midline. There is no obvious deformity. Musculoskeletal: Normal ROM, no tenderness, There is no pedal edema. There is no calf tenderness or swelling. No cords were appreciated. Neurological: CN II-XII intact, Cranial nerves III through XII are intact. There are no obvious motor or sensory deficits. Coordination appears grossly intact. Speech is normal. Psychiatric: Cooperative, appropriate mood & affect, normal judgment. Limitations: no limitations Course Vital Signs 03/01/17 03/01/17 03/01/17 14:46 15:26 16:35 Temperature 98.1 F Pulse Rate 111 H 114 H 113 H Respiratory 20 20 18 Rate Blood Pressure 158/92 155/84 149/90 O2 Sat by Pulse 93 L 97 95 Oximetry - Reevaluation(s) Reevaluation #1: Social is reassessed at 1715, CT pulmonary and respiratory for any port a embolism, CBC is normal d-dimer was quite elevated GGT is 5451 AST 396 ALT 98. His elevated TROPONIN IS NEGATIVE. CONSIDERING THE ELEVATED LFTS I WENT AHEAD AND OF THE ABDOMEN AND CONSIDERING HER CALL FOR 97%. ADMITTED UNDER THE SERVICE OF SOUTH PHYSICIAN 03/01/17 17:30 Disposition Clinical Impression: Tachycardia, Epigastric pain, Alcohol withdrawal, Chest pain Disposition: ADMITTED IP TO THIS HOSP Condition: Good Referrals: None,Stated [Primary Care Provider] - 1-2 days
[2017-03-01 15:38] LABS: Basophils # (A) 0.1 k/uL (0-0.2); Basophils % (A) 1 %; CH 35.4; CHCM 32.5; Eosinophils % (A) 0 %; HCT 49.6 % (39.0-53.0); HDW 2.37; HGB 15.8 gm/dL (13.0-17.5); Luc # (Auto) 0.17; Luc % (Auto) 3; Lymphocytes # (A) 1.4 k/uL (1.0-4.8); Lymphocytes % (A) 22 %; MCHC 31.9 g/dL (31.0-37.0); Macrocytosis Marked; Mean Platelet Volume 7.8; Monocytes # (A) 0.5 k/uL (0-1.0); Monocytes % (A) 8 %; Neutrophils # (A) 4.1 k/uL (1.3-7.7); Neutrophils % (A) 66 %; RBC 4.52 m/uL (4.30-5.90); RDW 15.7 % (11.5-15.5); WBC 6.3 k/uL (3.8-10.6)
[2017-03-01 15:48] LABS: MCV 109.7 fL (80.0-100.0)
[2017-03-01 15:54] LABS: INR 1.2 (<1.2); Partial Thromboplastin Time 24.4 sec (22.0-30.0); Prothrombin Time 11.5 sec (9.0-12.0)
[2017-03-01 15:59] LABS: Creatine Kinase 297 U/L (55-170)
[2017-03-01 16:01] LABS: ALT 98 U/L (21-72); AST 396 U/L (17-59); Amylase 45 U/L (30-110); Anion Gap 16 mmol/L; Blood Urea Nitrogen 7 mg/dL (9-20); Calcium 8.2 mg/dL (8.4-10.2); Carbon Dioxide 24 mmol/L (22-30); Chloride 106 mmol/L (98-107); Glucose 144 mg/dL (74-99); Magnesium 1.9 mg/dL (1.6-2.3); Manual Review Performed; Non-African American GFR(MDRD) >60 (>60 ml/min/1.73 sqM); Phosphorus 3.2 mg/dL (2.5-4.5); Potassium 3.9 mmol/L (3.5-5.1); Sodium 146 mmol/L (137-145)
[2017-03-01] MEDS ORDERED: RX INFO: IV CONTRAST WAS GIVEN 1 EACH MISC MISCELLANE PRN (16:01)
[2017-03-01 16:11] LABS: Creatine Kinase MB 0.9 ng/mL (0.0-2.4); Troponin I <0.012 ng/mL (0.000-0.034)
[2017-03-01 16:16] LABS: Alcohol 497 mg/dL
--- NOTE | 2017-03-01 16:25 | XR ---
EXAMINATION TYPE: XR chest 2V DATE OF EXAM: 03/01/2017 COMPARISON: 01/03/2017 HISTORY: Chest pain TECHNIQUE: Frontal and lateral views of the chest are obtained. FINDINGS: There is no focal air space opacity, pleural effusion, or pneumothorax seen. Persistent ri ght hemidiaphragm elevation is unchanged from the prior exam. The cardiac silhouette size is within n ormal limits. The osseous structures are intact. IMPRESSION: No acute cardiopulmonary process. Unchanged right hemidiaphragm elevation.
[2017-03-01 16:33] LABS: Appearance,Urine Clear (Clear); Bilirubin,Urine 2+ (Negative); Glucose,Urine (UA) Negative (Negative); Ketones,Urine Negative (Negative); Leukocyte Esterase,Urine Negative (Negative); Mucus,Urine Few /hpf; Nitrite,Urine Negative (Negative); PH, Urine 6.5 (5.0-8.0); Particle Count 3950; Protein,Urine 3+ (Negative); RBC,Urine 1 /hpf (0-5); Specific Gravity,Urine 1.023 (1.001-1.035); UA Billing (MACRO vs. MICRO) MICRO; WBC,Urine 3 /hpf (0-5)
[2017-03-01 16:34] LABS: GGT 5451 U/L (15-73)
--- NOTE | 2017-03-01 16:54 | CT ---
EXAMINATION TYPE: CT angio chest DATE OF EXAM: 03/01/2017 COMPARISON: NONE HISTORY: Patient complains of chest pain CT DLP: 523 mGycm. Automated Exposure Control for Dose Reduction was Utilized. CONTRAST: CTA scan of the thorax is performed with IV Contrast, patient injected with 100 mL of Omnipaque 350, pulmonary embolism protocol. MIP Images are created on CT scanner and reviewed. FINDINGS: LUNGS: The lungs are grossly clear other than areas of scattered subsegmental atelectasis accentuated by low lung volumes, there is no concerning parenchymal mass or nodule identified. There is no ple ural effusion or pneumothorax seen. The tracheobronchial tree is patent. Right hemidiaphragm elevati on is noted. MEDIASTINUM: There is satisfactory enhancement of the pulmonary artery and its branches, there is no CT evidence for pulmonary embolism. There are no greater than 1 cm hilar or mediastinal lymph nodes. No cardiomegaly or pericardial effusion is seen. OTHER: Diffuse hypoattenuation of the hepatic parenchyma is seen compatible with moderate to severe h epatic steatosis. IMPRESSION: 1. No evidence of pulmonary embolus. 2. Low lung volumes creating subsegmental scattered areas of bibasilar atelectasis. Right hemidiaphra gm elevation is also noted. 3. Diffuse hypoattenuation of the hepatic parenchyma compatible with at least moderate to severe hepa tic steatosis.
--- NOTE | 2017-03-01 18:35 | US ---
EXAMINATION TYPE: US abdomen limited DATE OF EXAM: 03/01/2017 COMPARISON: CT CLINICAL HISTORY: Pain. Chest and abdomen pain, N/V EXAM MEASUREMENTS: Liver Length: 19.6 cm Gallbladder Wall: 0.3 cm CBD: 0.4 cm Right Kidney: 10.4 x 5.1 x 5.6 cm Difficult and limited study due to patient body habitus Pancreas: obscured by overlying midline bowel gas Liver: enlarged at 19.6cm, increased echogenicity, increased attenuation, decreased visualization of vessels suggestive of fatty infiltrate, scanned intercostally, limited by rib shadowing . This find ing limits evaluation for hepatic masses. Gallbladder: wnl Evidence for sonographic Erazo's sign: yes CBD: visualized portions wnl, limited by overlying bowel gas Right Kidney: no hydro or masses seen, limited by overlying bowel gas IMPRESSION: Diffusely hyperattenuated hepatic echotexture most commonly related to hepatic steatosis and at least moderate in degree. Patient's body habitus limits visualization, however gallbladder lico ears unremarkable with no sonographic evidence of cholelithiasis or cholecystitis. No right-sided hyd ronephrosis.
--- NOTE | 2017-03-01 18:45 | P.HPIM ---
History of Present Illness H&P Date: 03/01/17 Chief Complaint: Chest pain, concern for withdrawals 31 yo male no significant medical history, came to ED c/o chest pain. Pain started 2-3 days ago, along lower half of both sternal edges, constant, provoked with respiratory movements, especially cough, sharp, non radiating, alleviated with avoiding deep breaths. pt tried Aleve, no improvement. Also noticed heartburn and indigestion. Mild dry cough. no nausea , vomiting, shortness of breath. No fever or chills. Patient has history of alcoholism. He has been treated in rehab few times. Last relapse started a year and a half ago due to some emotional frustration and home situation. He has been drinking 12 shots of vodka daily. today he had 3 shots and was concern to be going into withdrawals as he has felt shaky. No hisotry of DTs or seizures. Denies any home medications. In ED had CXR and CTA chest that were remarkable only for some mild atelectasis. US of liver pending results. pt admitted with ETOH level of 497. Review of Systems Constitutional: Denies chills, Denies chronic headaches, Denies chronic pain, Denies fatigue, Denies fever, Denies sweats Ears, nose, mouth and throat: Denies epistaxis, Denies headache Cardiovascular: Reports as per HPI Respiratory: Reports as per HPI Gastrointestinal: Reports dyspepsia, Reports heartburn, Reports indigestion, Denies abdominal pain, Denies belching, Denies bloating, Denies early satiety, Denies jaundice, Denies melena, Denies nausea, Denies vomiting Genitourinary: Denies genital pain, Denies genital sores, Denies polyuria, Denies urinary frequency, Denies urinary hesitancy Musculoskeletal: Denies frequent falls, Denies hot joints, Denies neck pain Integumentary: Denies pruritus, Denies rash Neurological: Denies ataxia, Denies balance difficulties, Denies confusion, Denies double vision, Denies headaches, Denies loss of vision, Denies paresthesias, Denies seizures, Denies syncope Psychiatric: Reports anxiety, Reports depression Endocrine: Denies flushing, Denies polyphagia, Denies polyuria Past Medical History Past Medical History: Hypertension Additional Past Medical History / Comment(s): ETOH abuse, IVDA History of Any Multi-Drug Resistant Organisms: None Reported Past Surgical History: No Surgical Hx Reported Past Anesthesia/Blood Transfusion Reactions: No Reported Reaction Past Psychological History: Anxiety Smoking Status: Current every day smoker Past Alcohol Use History: Abuse, Daily Past Drug Use History: None Reported - Past Family History Father Family Medical History: No Reported History Medications and Allergies Home Medications Medication Instructions Recorded Confirmed Type Naproxen Sodium [Aleve] 220 mg PO BID PRN 03/01/17 03/01/17 History Allergies Allergy/AdvReac Type Severity Reaction Status Date / Time No Known Allergies Allergy Verified 03/01/17 15:05 Physical Exam Vitals: Vital Signs Temp Pulse Resp BP Pulse Ox 03/01/17 17:43 108 H 18 146/93 95 03/01/17 16:35 113 H 18 149/90 95 03/01/17 15:26 114 H 20 155/84 97 03/01/17 14:46 98.1 F 111 H 20 158/92 93 L Intake and Output 03/01/17 03/01/17 03/01/17 06:59 14:59 22:59 Other: Weight 94.801 kg Patient Weight 03/02/17 06:59 Weight 94.801 kg - Constitutional General appearance: cooperative, no acute distress - EENT Eyes: anicteric sclerae, EOMI, PERRLA, no scleral icterus - Neck Neck: normal ROM - Respiratory Respiratory: bilateral: CTA - Cardiovascular Heart rate: 90 Rhythm: regular Heart sounds: normal: S1, S2 - Gastrointestinal General gastrointestinal: distended, normal bowel sounds, no organomegaly, soft , no tenderness - Integumentary Integumentary: no jaundiced - Neurologic Neurologic: CNII-XII intact - Musculoskeletal Musculoskeletal: strength equal bilaterally - Psychiatric Psychiatric: A&O x's 3, appropriate affect (no asterixis, cerebellar finger to nose intact, no tremor) Results CBC & Chem 7: 03/01/17 15:20 03/01/17 15:20 Labs: Abnormal Lab Results - Last 24 Hours (Table) 03/01/17 03/01/17 03/01/17 Range/Units 15:20 15:20 15:20 MCV 109.7 H D (80.0-100.0) fL RDW 15.7 H (11.5-15.5) % INR (<1.2) D-Dimer (<0.60) mg/L FEU Sodium 146 H (137-145) mmol/L BUN 7 L (9-20) mg/dL Creatinine 0.60 L (0.66-1.25) mg/dL Glucose 144 H (74-99) mg/dL Calcium 8.2 L (8.4-10.2) mg/dL GGT 5451 H (15-73) U/L AST 396 H (17-59) U/L ALT 98 H (21-72) U/L Total Creatine Kinase 297 H (55-170) U/L Lipase 325 H (23-300) U/L Urine Protein (Negative) Urine Blood (Negative) Urine Bilirubin (Negative) Urine Mucus (None) /hpf U Benzodiazepines Scrn (NotDetected) 03/01/17 03/01/17 Range/Units 15:20 15:20 MCV (80.0-100.0) fL RDW (11.5-15.5) % INR 1.2 H (<1.2) D-Dimer 2.35 H (<0.60) mg/L FEU Sodium (137-145) mmol/L BUN (9-20) mg/dL Creatinine (0.66-1.25) mg/dL Glucose (74-99) mg/dL Calcium (8.4-10.2) mg/dL GGT (15-73) U/L AST (17-59) U/L ALT (21-72) U/L Total Creatine Kinase (55-170) U/L Lipase (23-300) U/L Urine Protein 3+ H (Negative) Urine Blood Small H (Negative) Urine Bilirubin 2+ H (Negative) Urine Mucus Few H (None) /hpf U Benzodiazepines Scrn Detected H (NotDetected) Thrombosis Risk Factor Assmnt - DVT/VTE Prophylaxis DVT/VTE Prophylaxis: Pharmacologic Prophylaxis ordered Assessment and Plan Plan: 1. Chest pain, atypical, non anginal likely musculo-sceletal, costochondritis Dyspepsia Cont pain ctrl Antacids 2. Acute alcohol intoxication with pending withdrawals with chronic alcoholism CIWA IVF Multivitamin cocktail Counseling Consider evaluation by chemical dependence team 3. Elevated liver enzymes due to alcoholic liver disease US done n ED results pending Repeat liver enzymes with bilirubin in am 4. Mild hyper natremia, start half normal saline for now
[2017-03-01] MEDS ORDERED: MAG HYDROX/AL HYDROX/SIMETH 30 ML CUP PO PRN (18:59)
[2017-03-01] MEDS ORDERED: THIAMINE 100 MG TAB PO SCH (20:00)
[2017-03-01] MEDS: LORazepam 2 MG/ML INJ IV PRN ×3 (20:11→23:44)
[2017-03-01 21:00] VITALS: BMI 33.7
[2017-03-01] MEDS ORDERED: SODIUM CHLORIDE 0.45% 1,000 ML IV SCH (21:00)
[2017-03-01] MEDS: NICOTINE 14MG/24HR PATCH TRANSDERM SCH (23:32)
[2017-03-02 00:39] LABS: ALT 96 U/L (21-72); AST 400 U/L (17-59); Alkaline Phosphatase 231 U/L (38-126); Anion Gap 12 mmol/L; Blood Urea Nitrogen 7 mg/dL (9-20); Calcium 8.1 mg/dL (8.4-10.2); Carbon Dioxide 27 mmol/L (22-30); Chloride 103 mmol/L (98-107); Glucose 143 mg/dL (74-99); Magnesium 1.6 mg/dL (1.6-2.3); Non-African American GFR(MDRD) >60 (>60 ml/min/1.73 sqM); Sodium 142 mmol/L (137-145); Total Bilirubin 2.6 mg/dL (0.2-1.3)
[2017-03-02] MEDS: LORazepam 2 MG/ML INJ IV PRN ×4 (02:01→07:29)
[2017-03-02] MEDS: HEPARIN SODIUM,PORCINE 5,000 UNIT/ML 1 ML VIAL SQ SCH ×2 (02:03→09:27)
[2017-03-02 04:27] VITALS: PULSE 118
[2017-03-02 09:02] VITALS: BP 126/80; RESP 20; TEMP 98.9
[2017-03-02] MEDS: NICOTINE 14MG/24HR PATCH TRANSDERM SCH (09:27)
[2017-03-02] MEDS ORDERED: SODIUM CHLORIDE 0.9% 1,000 ML IV SCH (09:30)
[2017-03-02] MEDS ORDERED: 1: MVI, ADULT NO.4 WITH VIT K 10 ML, THIAMINE 100 MG, FOLIC ACID 1 MG in SODIUM CHLORIDE IV SCH ×4 (09:30)
[2017-03-02] MEDS ORDERED: Magnesium Replacement Protocol 1 EACH MISC MISCELLANE PRN (09:34)
[2017-03-02] MEDS ORDERED: SODIUM CHLORIDE 0.9% 1,000 ML BAG ONE (09:58)
--- NOTE | 2017-03-02 10:00 | P.PN ---
Subjective Principal diagnosis: 1. Acute alcohol withdrawal, high risk patient 2. Acute mild pancreatitis secondary to alcohol abuse 3. Multiple electrolyte abnormalities He should just feeling quite tremulous, having significant palpitations, withdrawal symptoms. States that he has had alcohol withdrawal in the past has never had a seizure but has come pretty close to severe alcohol withdrawal. Currently he is not having any headaches changes in vision or acute visual loss. He has had a productive cough over the past couple of days, no fevers, no chills, no rigors. He has some mild mid epigastric abdominal cramping. He is not nauseated. No diarrhea, melena or hematochezia. He states his father will be coming in later to see him. Denies any chest pain, orthopnea, visual or auditory hallucinations. Objective - Vital Signs Vital signs: Vital Signs Temp 98.9 F 03/02/17 08:00 Pulse 118 H 03/02/17 08:00 Resp 20 03/02/17 08:00 BP 126/80 03/02/17 08:00 Pulse Ox 92 L 03/02/17 04:13 Intake & Output 03/01/17 03/02/17 03/02/17 18:59 06:59 18:59 Intake Total 500 Balance 500 Weight 94.801 kg 94.7 kg Intake: Oral 500 Other: Voiding Method Toilet Toilet - Exam Constitutional: Anxious, tremulous,in acute alcohol withdrawl Eyes: Anicteric sclerae, moist conjunctiva, no lid-lag Pupils are equal, reative to light ENMT: NC/AT Oropharynx clear, no erythema, exudates Neck: Supple, FROM, no masses, or JVD No carotid bruits No thyromegaly Lungs: Clear to auscultation Clear to percussion Normal respiratory effort, no accessory muscle use Cardiovascular: Sinus tachycardia No murmurs, gallops, or rubs No peripheral edema Abdominal: Soft mild mid epigastric tenderness, no guarding, rebound or rigidity Abdomen moving with respiration Normoactive bowel sounds No appreciable palpable mass Skin: Normal temperature, tone, texture, turgor Extremities: No digital cyanosis No clubbing Radial pulses intact and symmetrical Psychiatric: Alert and oriented x 3, anxious, aware of withdrawl Intact judgement no halluciantions at this point Neuro: Cranial nerves II-XII grossly intact No focal sensory deficits. Moves all 4 extremities spontaneously - Labs CBC & Chem 7: 10/01/17 15:20 03/02/17 00:08 Labs: Abnormal Lab Results - Last 24 Hours (Table) 03/01/17 03/01/17 03/01/17 Range/Units 15:20 15:20 15:20 MCV 109.7 H D (80.0-100.0) fL RDW 15.7 H (11.5-15.5) % INR (<1.2) D-Dimer (<0.60) mg/L FEU Sodium 146 H (137-145) mmol/L BUN 7 L (9-20) mg/dL Creatinine 0.60 L (0.66-1.25) mg/dL Glucose 144 H (74-99) mg/dL Calcium 8.2 L (8.4-10.2) mg/dL Total Bilirubin (0.2-1.3) mg/dL GGT 5451 H (15-73) U/L AST 396 H (17-59) U/L ALT 98 H (21-72) U/L Alkaline Phosphatase (38-126) U/L Total Creatine Kinase 297 H (55-170) U/L Albumin (3.5-5.0) g/dL Lipase 325 H (23-300) U/L Urine Protein (Negative) Urine Blood (Negative) Urine Bilirubin (Negative) Urine Mucus (None) /hpf U Benzodiazepines Scrn (NotDetected) 03/01/17 03/01/17 03/02/17 Range/Units 15:20 15:20 00:08 MCV (80.0-100.0) fL RDW (11.5-15.5) % INR 1.2 H (<1.2) D-Dimer 2.35 H (<0.60) mg/L FEU Sodium (137-145) mmol/L BUN 7 L (9-20) mg/dL Creatinine (0.66-1.25) mg/dL Glucose 143 H (74-99) mg/dL Calcium 8.1 L (8.4-10.2) mg/dL Total Bilirubin 2.6 H (0.2-1.3) mg/dL GGT (15-73) U/L AST 400 H (17-59) U/L ALT 96 H (21-72) U/L Alkaline Phosphatase 231 H (38-126) U/L Total Creatine Kinase (55-170) U/L Albumin 3.3 L (3.5-5.0) g/dL Lipase (23-300) U/L Urine Protein 3+ H (Negative) Urine Blood Small H (Negative) Urine Bilirubin 2+ H (Negative) Urine Mucus Few H (None) /hpf U Benzodiazepines Scrn Detected H (NotDetected) Assessment and Plan (1) Alcohol withdrawal delirium, acute, hyperactive Status: Acute (2) Acute alcoholic pancreatitis Status: Acute (3) Electrolyte imbalance Status: Acute (4) Alcoholic hepatitis Status: Acute Plan: 1. Change patient to inpatient status, due to ongoing alcohol withdrawl symptoms , very high risk patient 2. RN instructed to give additional IV Ativan TOMASA 3. Increase IV fluids to 150 cc/hr of normal saline, add banana bag at 100,l/hr 4. Daily morning labs to include electrolytes 5. Replace with 3 grams of IV magnesium sulfate 6. Neuro checks with vitals 7. Close frequent monitoring. I will reassess patient in couple of hours, if ongoing high CIWA despite IVP Ativan may need to place patient in ICU due to high risk! 8. Condition: critical and guarded Time spent thus far (greater than 50% was spent in residential child care counselor and coordination of care) this mornin:03-09:46
[2017-03-02] MEDS: MAGNESIUM SULFATE-D5W PMX 1 GM in DEXTROSE/WATER 1 100ML.BAG IVPB SCH ×2 (10:37→12:04)
--- NOTE | 2017-03-02 16:39 | P.PN ---
Progress Note - Text I was called to the floor by nursing staff at about 11:30 morning as the patient was demanding to be discharged. He saw and reevaluated the patient and explained to him that he has a very high risk of acute alcohol withdrawal seizures, acute alcohol cardiac arrhythmias and . The patient is aware of all of the risks with acute alcohol withdrawal as he states he has had them in the past. He tells me however that at this point he needs to leave AGAINST MEDICAL ADVICE as he does not want to lose his job. The patient was counseled extensively by myself and nursing staff and despite all of this he is refusing to remain in the hospital. Unfortunately the patient has capacity to make his own medical decisions and we cannot force him to remain in the hospital. I have advised the patient that should he have any deterioration in his clinical status he should return to the hospital TOMASA, or call 911.. Patient was counseled to get in to see his primary care provider as soon as possible as well. Patient is leaving AGAINST MEDICAL ADVICE. Nursing staff is preparing paperwork. We are sorry that we were unable to complete the medical care for your patient. If you have any questions please feel free to page me through the hospital high pressure boiler operator.
== END 2017-03-02 12:18 | disposition left against medical advice (07) | DRG 770 ==
LOC: EC 14:39 → 3OBS 17:34 → OBSVTOIN 03-02 08:46
PROVIDERS: ADMIT Hospitalist; ATTEND Hospitalist
DX: F10.231 Alcohol dependence with withdrawal delirium (principal); E87.8 Other disorders of electrolyte and fluid balance, not elsewhere classified; E87.0 Hyperosmolality and hypernatremia; K85.20 Alcohol induced acute pancreatitis without necrosis or infection; K70.10 Alcoholic hepatitis without ascites; J98.11 Atelectasis; F10.288 Alcohol dependence with other alcohol-induced disorder; F17.200 Nicotine dependence, unspecified, uncomplicated; F41.9 Anxiety disorder, unspecified; M94.0 Chondrocostal junction syndrome [Tietze]; Y90.8 Blood alcohol level of 240 mg/100 ml or more; B18.2 Chronic viral hepatitis C; Z71.41 Alcohol abuse counseling and surveillance of alcoholic
CPT/HCPCS: 36415; 71020; 71275; 76705; 80048; 80053; 80306; 80320; 81001; 82150; 82550; 82553; 82977; 83690; 83735; 84100; 84450; 84460; 84484; 85025; 85379; 85610; 85730; 93005; 96361; 96372; 96374; 96375; 96376; 99285

== ENCOUNTER 2017-08-07 07:07 | Emergency (ER) | payer OTHER ==
[2017-08-07 07:15] VITALS: TEMP 98.5
[2017-08-07] MEDS ORDERED: SODIUM CHLORIDE 0.9% 1,000 ML IV ONE ×2 (07:31→07:33)
[2017-08-07] MEDS ORDERED: MORPHINE SULFATE 4 MG/ML SYRINGE IVP STA (07:32)
--- NOTE | 2017-08-07 07:36 | ED ---
General Adult HPI - General Chief complaint: GI Bleed Stated complaint: rectal pain Time Seen by Provider: 08/07/17 07:23 Source: patient, EMS, RN notes reviewed Mode of arrival: EMS Limitations: physical limitation - History of Present Illness Initial comments: 32-year-old male presents for evaluation of rectal pain and rectal bleeding. Patient states he's had a two-week history of intermittent bright red rectal blood with his bowel movements. Blood is primarily with wiping. Denies large amount of blood states it is just scan of the toilet paper. Over the past several days his pain is significantly worsened. He yesterday the pain was severe, he took 5 shots of alcohol in order to attempt to alleviate his pain. This did not help. Patient also reports fever several days ago. As well as URI symptoms including cough and congestion. He also complains of significant vomiting which resolved 2 days ago and persistent diarrhea. Diarrhea has been present for approximately 3 days. He complains of mild anterior chest pain. . Denies current fever. Patient's only medical history is hypertension. - Related Data Home Medications Medication Instructions Recorded Confirmed Naproxen Sodium [Aleve] 220 mg PO BID PRN 03/01/17 08/07/17 Allergies Allergy/AdvReac Type Severity Reaction Status Date / Time No Known Allergies Allergy Verified 08/07/17 08:58 Review of Systems ROS Statement: Those systems with pertinent positive or pertinent negative responses have been documented in the HPI. ROS Other: All systems not noted in ROS Statement are negative. Past Medical History Past Medical History: Hypertension Additional Past Medical History / Comment(s): ETOH abuse, IVDA History of Any Multi-Drug Resistant Organisms: None Reported Past Surgical History: No Surgical Hx Reported Past Anesthesia/Blood Transfusion Reactions: No Reported Reaction Past Psychological History: Anxiety Smoking Status: Current every day smoker Past Alcohol Use History: Abuse, Daily Past Drug Use History: None Reported - Past Family History Father Family Medical History: No Reported History General Exam Limitations: physical limitation General appearance: alert, in no apparent distress Head exam: Present: atraumatic, normocephalic Eye exam: Present: normal appearance, PERRL ENT exam: Present: normal exam Neck exam: Present: normal inspection. Absent: tenderness, meningismus Respiratory exam: Present: normal lung sounds bilaterally. Absent: respiratory distress Cardiovascular Exam: Present: normal rhythm, tachycardia GI/Abdominal exam: Present: soft, tenderness (Mild generalized tenderness to palpation). Absent: distended Rectal exam: Present: hemorrhoids. Absent: black stool, bloody stool Extremities exam: Present: normal inspection, normal capillary refill. Absent: pedal edema Neurological exam: Present: alert, oriented X3, CN II-XII intact. Absent: motor sensory deficit Psychiatric exam: Present: normal affect, normal mood Skin exam: Present: warm, dry, intact. Absent: cyanosis, diaphoretic Course Vital Signs 08/07/17 08/07/17 08/07/17 07:08 07:14 08:14 Temperature 98.5 F Pulse Rate 133 H 131 H 114 H Respiratory 18 18 18 Rate Blood Pressure 177/105 159/83 150/81 O2 Sat by Pulse 97 97 97 Oximetry 08/07/17 09:00 Temperature Pulse Rate 114 H Respiratory Rate Blood Pressure O2 Sat by Pulse Oximetry - Reevaluation(s) Reevaluation #1: 08/07/17 09:45 Patient is clinically sober, ambulatory emergency department. Medical Decision Making - Medical Decision Making 32-year-old male presenting with chief complaint hemorrhoid. Patient does have a external hemorrhoid, no active bleeding on examination. Patient is advised on sitz bath, Preparation H, and high-fiber diet. Patient is also found to be quite tachycardic, he has had significant vomiting and diarrhea over the past several days, no episodes while in the emergency department. He does admit to drinking alcohol, serum alcohol is significantly elevated at 269 as well as hypernatremia associated with dehydration. He received 2 L normal saline, on reevaluation his heart rate is significantly improved. He is clinically sober, he is not driving he will take a taxi cab home. - Lab Data Result diagrams: 08/07/17 07:30 08/07/17 07:30 Lab Results 08/07/17 08/07/17 08/07/17 Range/Units 07:30 07:30 07:30 WBC 10.2 (3.8-10.6) k/uL RBC 5.30 (4.30-5.90) m/uL Hgb 15.6 (13.0-17.5) gm/dL Hct 46.8 (39.0-53.0) % MCV 88.3 (80.0-100.0) fL MCH 29.4 (25.0-35.0) pg MCHC 33.3 (31.0-37.0) g/dL RDW 14.6 (11.5-15.5) % Plt Count 297 (150-450) k/uL Neutrophils % 49 % Lymphocytes % 39 % Monocytes % 6 % Eosinophils % 3 % Basophils % 1 % Neutrophils # 5.0 (1.3-7.7) k/uL Lymphocytes # 4.0 (1.0-4.8) k/uL Monocytes # 0.6 (0-1.0) k/uL Eosinophils # 0.3 (0-0.7) k/uL Basophils # 0.1 (0-0.2) k/uL PT (9.0-12.0) sec INR (<1.2) APTT (22.0-30.0) sec Sodium 149 H (137-145) mmol/L Potassium 3.8 (3.5-5.1) mmol/L Chloride 109 H (98-107) mmol/L Carbon Dioxide 26 (22-30) mmol/L Anion Gap 14 mmol/L BUN 9 (9-20) mg/dL Creatinine 0.92 (0.66-1.25) mg/dL Est GFR (CKD-EPI)AfAm >90 (>60 ml/min/1.73 sqM) Est GFR (CKD-EPI)NonAf >90 (>60 ml/min/1.73 sqM) Glucose 145 H (74-99) mg/dL Plasma Lactic Acid Niko 1.9 (0.7-2.0) mmol/L Calcium 9.1 (8.4-10.2) mg/dL Magnesium 2.0 (1.6-2.3) mg/dL Total Bilirubin 0.4 (0.2-1.3) mg/dL AST 75 H (17-59) U/L ALT 41 (21-72) U/L Alkaline Phosphatase 98 (38-126) U/L Troponin I (0.000-0.034) ng/mL Total Protein 7.7 (6.3-8.2) g/dL Albumin 4.3 (3.5-5.0) g/dL Serum Alcohol 269 mg/dL Influenza Type A RNA (Not Detectd) Influenza Type B (PCR) (Not Detectd) 0308/07/17 08/07/17 Range/Units 07:30 07:30 08:35 WBC (3.8-10.6) k/uL RBC (4.30-5.90) m/uL Hgb (13.0-17.5) gm/dL Hct (39.0-53.0) % MCV (80.0-100.0) fL MCH (25.0-35.0) pg MCHC (31.0-37.0) g/dL RDW (11.5-15.5) % Plt Count (150-450) k/uL Neutrophils % % Lymphocytes % % Monocytes % % Eosinophils % % Basophils % % Neutrophils # (1.3-7.7) k/uL Lymphocytes # (1.0-4.8) k/uL Monocytes # (0-1.0) k/uL Eosinophils # (0-0.7) k/uL Basophils # (0-0.2) k/uL PT 11.1 (9.0-12.0) sec INR 1.2 H (<1.2) APTT 23.4 (22.0-30.0) sec Sodium (137-145) mmol/L Potassium (3.5-5.1) mmol/L Chloride (98-107) mmol/L Carbon Dioxide (22-30) mmol/L Anion Gap mmol/L BUN (9-20) mg/dL Creatinine (0.66-1.25) mg/dL Est GFR (CKD-EPI)AfAm (>60 ml/min/1.73 sqM) Est GFR (CKD-EPI)NonAf (>60 ml/min/1.73 sqM) Glucose (74-99) mg/dL Plasma Lactic Acid Niko (0.7-2.0) mmol/L Calcium (8.4-10.2) mg/dL Magnesium (1.6-2.3) mg/dL Total Bilirubin (0.2-1.3) mg/dL AST (17-59) U/L ALT (21-72) U/L Alkaline Phosphatase (38-126) U/L Troponin I <0.012 (0.000-0.034) ng/mL Total Protein (6.3-8.2) g/dL Albumin (3.5-5.0) g/dL Serum Alcohol mg/dL Influenza Type A RNA Not Detected (Not Detectd) Influenza Type B (PCR) Not Detected (Not Detectd) Disposition Clinical Impression: Hemorrhoids, Dehydration, Alcohol intoxication Disposition: HOME SELF-CARE Condition: Fair Instructions: Hemorrhoids (ED), Alcohol Intoxication (ED) Additional Instructions: Please use sitz bath, Preparation H, high-fiber diet. Follow-up with primary care physician. Referrals: None,Stated [Primary Care Provider] - 1-2 days Griffin Bermudez DO [Doctor of Osteopathic Medicine] - 1-2 days Time of Disposition: 09:50
[2017-08-07 07:51] LABS: Basophils # (A) 0.1 k/uL (0-0.2); Basophils % (A) 1 %; Eosinophils # (A) 0.3 k/uL (0-0.7); Eosinophils % (A) 3 %; HCT 46.8 % (39.0-53.0); HGB 15.6 gm/dL (13.0-17.5); Lymphocytes % (A) 39 %; MCH 29.4 pg (25.0-35.0); MCHC 33.3 g/dL (31.0-37.0); MCV 88.3 fL (80.0-100.0); Monocytes # (A) 0.6 k/uL (0-1.0); Monocytes % (A) 6 %; Neutrophils % (A) 49 %; Platelet Count 297 k/uL (150-450); RDW 14.6 % (11.5-15.5); WBC 10.2 k/uL (3.8-10.6)
[2017-08-07 08:04] LABS: ALT 41 U/L (21-72); AST 75 U/L (17-59); Albumin 4.3 g/dL (3.5-5.0); Alkaline Phosphatase 98 U/L (38-126); Anion Gap 14 mmol/L; Blood Urea Nitrogen 9 mg/dL (9-20); Calcium 9.1 mg/dL (8.4-10.2); Carbon Dioxide 26 mmol/L (22-30); Chloride 109 mmol/L (98-107); Glucose 145 mg/dL (74-99); Potassium 3.8 mmol/L (3.5-5.1); Sodium 149 mmol/L (137-145); Total Bilirubin 0.4 mg/dL (0.2-1.3); Total Protein 7.7 g/dL (6.3-8.2)
[2017-08-07 08:20] LABS: Alcohol 269 mg/dL; INR 1.2 (<1.2); Partial Thromboplastin Time 23.4 sec (22.0-30.0); Prothrombin Time 11.1 sec (9.0-12.0)
--- NOTE | 2017-08-07 09:35 | XR ---
EXAMINATION TYPE: XR chest 2V DATE OF EXAM: 08/07/2017 COMPARISON: 03/01/2017 HISTORY: Chest pain for several days TECHNIQUE: Frontal and lateral views of the chest are obtained. FINDINGS: There is no focal air space opacity, pleural effusion, or pneumothorax seen. The cardiac silhouette size is within normal limits. The osseous structures are intact. IMPRESSION: No acute cardiopulmonary process.
[2017-08-07 10:14] VITALS: BP 152/87; PULSE 118; RESP 20
== END 2017-08-07 10:12 | disposition home or self-care (01) ==
LOC: EC 07:07
DX: K64.4 Residual hemorrhoidal skin tags (principal); E86.0 Dehydration; F10.120 Alcohol abuse with intoxication, uncomplicated; R07.9 Chest pain, unspecified; F17.200 Nicotine dependence, unspecified, uncomplicated; E87.1 Hypo-osmolality and hyponatremia; Y90.8 Blood alcohol level of 240 mg/100 ml or more
CPT/HCPCS: 36415; 93005; 80053; 83605; 83735; 84484; 85025; 85610; 85730; 80320; 87502; 71046; 99285; 96374; 96361 ×3; J2270

== ENCOUNTER 2017-08-09 03:07 | Emergency (ER) | payer OTHER ==
[2017-08-09] MEDS ORDERED: LIDOCAINE VISCOUS 2% 15 ML CUP MUCOUS MEM ONE (03:39)
[2017-08-09] MEDS ORDERED: SODIUM CHLORIDE 0.9% 2,000 ML IV STA (03:39)
--- NOTE | 2017-08-09 03:43 | ED ---
General Adult HPI - General Chief complaint: GI Bleed Stated complaint: hemorrhage Time Seen by Provider: 08/09/17 03:13 Source: patient, EMS Mode of arrival: EMS Limitations: no limitations - History of Present Illness Initial comments: 32-year-old male patient presents to the emergency department today with multiple complaints. Patient states he has a hemorrhoid isn't suffering with for the last few days. States the pain is seems or worsened today. States he is using preparation H, taking Aleve, and doing sitz baths for the hemorrhoid but doesn't seem to be working. He states he is also having midepigastric abdominal pain radiates into his chest. States he has been vomiting throughout the day today states he is unable to keep down any food or fluids. States he has had multiple episodes of diarrhea. States that he does have bright red bleeding from the hemorrhoid. States that it is on the toilet paper when he wipes. He denies any passage of clots or large amounts of bleeding. Denies any dizziness or weakness. Denies any shortness of breath. Patient denies any recent rash, fever, chills, back pain, numbness, tingling, dizziness, weakness, hematuria, dysuria, urinary urgency, urinary frequency, headache, visual changes , or any other complaints. Patient does admit to drinking "a lot" today. - Related Data Home Medications Medication Instructions Recorded Confirmed Naproxen Sodium [Aleve] 220 mg PO BID PRN 03/01/17 08/07/17 Previous Rx's Medication Instructions Recorded Omeprazole [PriLOSEC] 20 mg PO AC-BRKFST #30 cap 08/09/17 Allergies Allergy/AdvReac Type Severity Reaction Status Date / Time No Known Allergies Allergy Verified 08/07/17 08:58 Review of Systems ROS Statement: Those systems with pertinent positive or pertinent negative responses have been documented in the HPI. ROS Other: All systems not noted in ROS Statement are negative. Past Medical History Past Medical History: Hypertension Additional Past Medical History / Comment(s): ETOH abuse, IVDA History of Any Multi-Drug Resistant Organisms: None Reported Past Surgical History: No Surgical Hx Reported Past Anesthesia/Blood Transfusion Reactions: No Reported Reaction Past Psychological History: Anxiety Smoking Status: Current every day smoker Past Alcohol Use History: Abuse, Daily Past Drug Use History: None Reported - Past Family History Father Family Medical History: No Reported History General Exam Limitations: no limitations General appearance: alert, in no apparent distress, other (This is a well- developed, well-nourished adult male patient in no acute distress. Vital signs upon presentation are temperature 97.4F, pulse 143, respirations 18, blood pressure 134/73, pulse ox 96% on room air.) Eye exam: Present: normal appearance, PERRL, EOMI. Absent: scleral icterus, conjunctival injection, periorbital swelling ENT exam: Present: normal exam, normal oropharynx, mucous membranes moist Respiratory exam: Present: normal lung sounds bilaterally. Absent: respiratory distress, wheezes, rales, rhonchi, stridor Cardiovascular Exam: Present: normal rhythm, tachycardia, normal heart sounds. Absent: systolic murmur, diastolic murmur, rubs, gallop, clicks GI/Abdominal exam: Present: soft, tenderness (Midepigastric tenderness, suprapubic tenderness), normal bowel sounds. Absent: distended, guarding, rebound, rigid Rectal exam: Present: hemorrhoids (1 inflamed external hemorrhoid at 6:00). Absent: normal inspection Neurological exam: Present: alert, oriented X3, CN II-XII intact Psychiatric exam: Present: normal affect, normal mood Skin exam: Present: warm, dry, intact, normal color. Absent: rash Course Vital Signs 08/09/17 03:11 Temperature 97.4 F L Pulse Rate 143 H Respiratory 18 Rate Blood Pressure 134/73 O2 Sat by Pulse 96 Oximetry EKG Findings - EKG Comments: EKG Findings:: EKG obtained at oh to 32 shows sinus tachycardia with a left posterior fascicular block. Ventricular rate is 142, MO interval 122, QR restorationist 80, QT to 92, QTc 449. Medical Decision Making - Medical Decision Making 32-year-old male patient presented to the emergency department today for complaints of hemorrhoid pain and abdominal pain. Patient does admit to drinking today. Physical examination reveals mid epigastric abdominal tenderness. Rectal exam did reveal a inflamed swollen hemorrhoid at the 6 o' clock position. There is no evidence of bleeding at this time. Labs reviewed and did reveal an elevated sodium at 146 most likely related to alcohol intake. Patient's alcohol level was 337. Urine was negative. Amylase and lipase were normal. Did discuss findings with the patient. He is alert and oriented at this time. He will be discharged home in care of his father who is coming to pick him up. Patient is instructed to follow-up with his primary care physician for recheck he is instructed to follow-up with his surgeon for evaluation of hemorrhoids. He'll be given a prescription for Prilosec for possible alcohol induced gastritis. He is instructed to return here immediately for any new, worsening, or concerning symptoms. He verbalizes understanding and agrees with this plan. - Lab Data Result diagrams: 08/09/17 04:15 08/09/17 04:15 Lab Results 08/09/17 08/09/17 08/09/17 Range/Units 04:15 04:15 04:55 WBC 7.9 (3.8-10.6) k/uL RBC 5.05 (4.30-5.90) m/uL Hgb 15.2 (13.0-17.5) gm/dL Hct 43.3 (39.0-53.0) % MCV 85.7 (80.0-100.0) fL MCH 30.0 (25.0-35.0) pg MCHC 35.0 (31.0-37.0) g/dL RDW 14.9 (11.5-15.5) % Plt Count 283 (150-450) k/uL Neutrophils % 60 % Lymphocytes % 29 % Monocytes % 7 % Eosinophils % 1 % Basophils % 0 % Neutrophils # 4.7 (1.3-7.7) k/uL Lymphocytes # 2.3 (1.0-4.8) k/uL Monocytes # 0.6 (0-1.0) k/uL Eosinophils # 0.1 (0-0.7) k/uL Basophils # 0.0 (0-0.2) k/uL Sodium 146 H (137-145) mmol/L Potassium 4.1 (3.5-5.1) mmol/L Chloride 105 (98-107) mmol/L Carbon Dioxide 27 (22-30) mmol/L Anion Gap 14 mmol/L BUN 15 (9-20) mg/dL Creatinine 0.90 (0.66-1.25) mg/dL Est GFR (CKD-EPI)AfAm >90 (>60 ml/min/1.73 sqM) Est GFR (CKD-EPI)NonAf >90 (>60 ml/min/1.73 sqM) Glucose 134 H (74-99) mg/dL Calcium 9.3 (8.4-10.2) mg/dL Total Bilirubin 0.3 (0.2-1.3) mg/dL AST 83 H (17-59) U/L ALT 53 (21-72) U/L Alkaline Phosphatase 99 (38-126) U/L Total Protein 7.5 (6.3-8.2) g/dL Albumin 4.0 (3.5-5.0) g/dL Amylase 50 (30-110) U/L Lipase 199 (23-300) U/L Urine Color Yellow Urine Appearance Clear (Clear) Urine pH 6.5 (5.0-8.0) Ur Specific [place] 1.021 (1.001-1.035) Urine Protein Trace H (Negative) Urine Glucose (UA) Negative (Negative) Urine Ketones Negative (Negative) Urine Blood Negative (Negative) Urine Nitrite Negative (Negative) Urine Bilirubin Negative (Negative) Urine Urobilinogen <2.0 (<2.0) mg/dL Ur Leukocyte Esterase Negative (Negative) Serum Alcohol 337 mg/dL - Radiology Data Radiology results: report reviewed, image reviewed Two-view x-ray of the chest abdomen shows diffuse distended small bowel loops in the mid abdomen. There is gas and fecal material down to the rectum. I see no sign of free air. There are no pathologic calcifications over the kidneys. Lung bases are clear. Impression by Dr. Walker shows evidence of some small bowel ileus similar to old exam. No free air. Disposition Clinical Impression: Abdominal pain, Hemorrhoid, Gastritis Disposition: HOME SELF-CARE Condition: Good Instructions: Hemorrhoids (ED), Abdominal Pain (ED) Additional Instructions: Follow-up with general surgeon in regards to your hemorrhoid as soon as possible. Continue using Preparation H, sitz baths, and home pain medication. Avoid alcohol intake. Follow-up with her primary care physician for further evaluation of abdominal pain. Return here immediately for any new, worsening, or concerning symptoms. Prescriptions: Omeprazole [PriLOSEC] 20 mg PO AC-BRKFST #30 cap Referrals: None,Stated [Primary Care Provider] - 1-2 days Claudia Zaman MD [STAFF PHYSICIAN] - 1-2 days Time of Disposition: 05:39
--- NOTE | 2017-08-09 04:07 | XR ---
EXAMINATION TYPE: XR KUB DATE OF EXAM: 08/09/2017 COMPARISON: 02/06/2017 HISTORY: Abdominal pain TECHNIQUE: 2 views FINDINGS: There are a few distended small bowel loops in the mid abdomen. There is gas and fecal mate rial down to the rectum. I see no sign of free air. There are no pathologic calcifications over the k idneys. Lung bases are clear. IMPRESSION: There is evidence of some small bowel ileus similar to old exam. No free air.
[2017-08-09 04:32] LABS: Basophils % (A) 0 %; Eosinophils # (A) 0.1 k/uL (0-0.7); Eosinophils % (A) 1 %; HCT 43.3 % (39.0-53.0); HGB 15.2 gm/dL (13.0-17.5); Lymphocytes # (A) 2.3 k/uL (1.0-4.8); Lymphocytes % (A) 29 %; MCV 85.7 fL (80.0-100.0); Mean Platelet Volume 6.7; Monocytes # (A) 0.6 k/uL (0-1.0); Monocytes % (A) 7 %; Neutrophils # (A) 4.7 k/uL (1.3-7.7); Neutrophils % (A) 60 %; Platelet Count 283 k/uL (150-450); RBC 5.05 m/uL (4.30-5.90); RDW 14.9 % (11.5-15.5); WBC 7.9 k/uL (3.8-10.6)
[2017-08-09] MEDS ORDERED: KETOROLAC 30 MG/ML 1 ML VIAL IVP STA (04:40)
[2017-08-09 04:48] LABS: ALT 53 U/L (21-72); AST 83 U/L (17-59); Alkaline Phosphatase 99 U/L (38-126); Amylase 50 U/L (30-110); Anion Gap 14 mmol/L; Blood Urea Nitrogen 15 mg/dL (9-20); Calcium 9.3 mg/dL (8.4-10.2); Carbon Dioxide 27 mmol/L (22-30); Chloride 105 mmol/L (98-107); Glucose 134 mg/dL (74-99); Lipase 199 U/L (23-300); Potassium 4.1 mmol/L (3.5-5.1); Sodium 146 mmol/L (137-145); Total Bilirubin 0.3 mg/dL (0.2-1.3); Total Protein 7.5 g/dL (6.3-8.2)
[2017-08-09 05:25] LABS: Appearance,Urine Clear (Clear); Bilirubin,Urine Negative (Negative); Blood,Urine Negative (Negative); Color,Urine Yellow; Glucose,Urine (UA) Negative (Negative); Ketones,Urine Negative (Negative); Leukocyte Esterase,Urine Negative (Negative); Nitrite,Urine Negative (Negative); PH, Urine 6.5 (5.0-8.0); Protein,Urine Trace (Negative); Specific Gravity,Urine 1.021 (1.001-1.035); Urobilinogen,Urine <2.0 mg/dL (<2.0)
[2017-08-09 05:29] LABS: Alcohol 337 mg/dL
[2017-08-09 05:53] LABS: Cocaine Screen,Urine Not Detected (NotDetected); Phencyclidine Screen,Urine Not Detected (NotDetected); Urn Cannabinoid Scrn Not Detected (NotDetected)
[2017-08-09 05:54] VITALS: BP 143/74; PULSE 105; RESP 12; TEMP 98
[2017-08-09 05:54] LABS: Amphetamine Screen,Urine Not Detected (NotDetected); Barbiturate Screen,Urine Not Detected (NotDetected); Benzodiazepines Screen,Urine Not Detected (NotDetected); Methadone Screen, Urine Not Detected (NotDetected); Opiate Screen,Urine Not Detected (NotDetected); Oxycodone Screen, Urine Not Detected (NotDetected); Tricyclic Antidepressant,Urine Not Detected (NotDetected)
== END 2017-08-09 05:55 | disposition home or self-care (01) ==
LOC: EC 03:07
DX: K29.70 Gastritis, unspecified, without bleeding (principal); K64.4 Residual hemorrhoidal skin tags; F17.200 Nicotine dependence, unspecified, uncomplicated
CPT/HCPCS: 36415; 93005; 80053; 82150; 83690; 85025; 81003; 80306; 80320; 74018; 99284; 96374; 96361; J1885

== ENCOUNTER 2017-08-12 05:40 | Emergency (ER) | payer OTHER ==
[2017-08-12 05:48] VITALS: TEMP 98.5
[2017-08-12 06:37] LABS: Basophils # (A) 0.1 k/uL (0-0.2); Basophils % (A) 1 %; Eosinophils # (A) 0.1 k/uL (0-0.7); Eosinophils % (A) 2 %; HCT 46.9 % (39.0-53.0); HGB 16.3 gm/dL (13.0-17.5); Lymphocytes # (A) 2.2 k/uL (1.0-4.8); Lymphocytes % (A) 31 %; MCH 30.2 pg (25.0-35.0); MCHC 34.8 g/dL (31.0-37.0); MCV 86.8 fL (80.0-100.0); Mean Platelet Volume 7.1; Monocytes # (A) 0.5 k/uL (0-1.0); Monocytes % (A) 7 %; Neutrophils # (A) 4.1 k/uL (1.3-7.7); Neutrophils % (A) 58 %; Platelet Count 252 k/uL (150-450); RDW 15.1 % (11.5-15.5); WBC 7.2 k/uL (3.8-10.6)
[2017-08-12 06:46] LABS: ALT 129 U/L (21-72); AST 313 U/L (17-59); Albumin 4.3 g/dL (3.5-5.0); Alkaline Phosphatase 99 U/L (38-126); Anion Gap 13 mmol/L; Blood Urea Nitrogen 17 mg/dL (9-20); Carbon Dioxide 26 mmol/L (22-30); Chloride 103 mmol/L (98-107); Glucose 114 mg/dL (74-99); Potassium 4.5 mmol/L (3.5-5.1); Sodium 142 mmol/L (137-145); Total Protein 7.8 g/dL (6.3-8.2)
--- NOTE | 2017-08-12 06:53 | XR ---
EXAM: XR Abdomen, 2 Views CLINICAL HISTORY: Reason: Pain TECHNIQUE: Frontal view of the abdomen/pelvis with upright view of the abdomen. COMPARISON: 08/09/17 FINDINGS: Intraperitoneal space: No free air. Gastrointestinal tract: The previously seen dilated small bowel loops are not appreciated on the current exam. Bones/joints: Unremarkable. IMPRESSION: The previously seen dilated small bowel loops are not appreciated on the current exam.
[2017-08-12] MEDS ORDERED: RX INFO: IV CONTRAST WAS GIVEN 1 EACH MISC MISCELLANE PRN (07:24)
[2017-08-12] MEDS ORDERED: MORPHINE SULFATE 4 MG/ML SYRINGE IVP ONE (07:25)
[2017-08-12] MEDS ORDERED: KETOROLAC 30 MG/ML 1 ML VIAL IVP STA (07:25)
--- NOTE | 2017-08-12 07:29 | ED ---
General Adult HPI - General Source: patient Mode of arrival: EMS Limitations: no limitations <Dc Perea - Last Filed: 08/12/17 07:26> <Kvng Levin - Last Filed: 08/12/17 09:09> - General Chief complaint: Recheck/Abnormal Lab/Rx Stated complaint: hemorrhoids Time Seen by Provider: 08/12/17 06:12 - History of Present Illness Initial comments: Her to 2 years old male presented with generalized abdominal pain and hemorrhoids him he said he is quite pink had a hard time sleeping abdominal pain is generalized, denies any fever no chills no nausea no vomiting. Denies any headaches no neck stiffness no chest pain has generalized abdominal pain no frequency frequency urgency dysuria no symptoms of TIA or CVA (Dc Perea) - Related Data Home Medications Medication Instructions Recorded Confirmed No Known Home Medications [No 08/12/17 08/12/17 Known Home Medications] Allergies Allergy/AdvReac Type Severity Reaction Status Date / Time No Known Allergies Allergy Verified 08/12/17 08:30 Review of Systems ROS Other: All systems not noted in ROS Statement are negative. <Dc Perea - Last Filed: 08/12/17 07:26> ROS Other: All systems not noted in ROS Statement are negative. <Kvng Levin - Last Filed: 08/12/17 09:09> ROS Statement: Those systems with pertinent positive or pertinent negative responses have been documented in the HPI. Past Medical History Past Medical History: Hypertension Additional Past Medical History / Comment(s): ETOH abuse, IVDA History of Any Multi-Drug Resistant Organisms: None Reported Past Surgical History: No Surgical Hx Reported Past Anesthesia/Blood Transfusion Reactions: No Reported Reaction Past Psychological History: Anxiety Smoking Status: Current every day smoker Past Alcohol Use History: Abuse, Daily Past Drug Use History: None Reported - Past Family History Father Family Medical History: No Reported History <Dc Perea - Last Filed: 08/12/17 07:26> General Exam Limitations: no limitations <Dc Perea - Last Filed: 08/12/17 07:26> <Kvng Levin - Last Filed: 08/12/17 09:09> - General Exam Comments Initial Comments: General: The patient is awake and alert, in no distress, and does not appear acutely ill. Skin: Skin is warm and dry and no rashes or lesions are noted. Eye: Pupils are equal, round and reactive to light, extra-ocular movements are intact; there is normal conjunctiva bilaterally. Ears, nose, mouth and throat: There are moist mucous membranes and no oral lesions. Neck: The neck is supple, there is no tenderness or JVD. Cardiovascular: There is a regular rate and rhythm. No murmur, rub or gallop is appreciated. Respiratory: To auscultation bilateral, no wheezing no rhonchi no distress respiratory hicks noticed Gastrointestinal: Tender over right upper quadrant area and the right paraumbilical area positive bowel sounds no guarding no rebounds Back: There is no tenderness to palpation in the midline. There is no obvious deformity. Musculoskeletal: Normal ROM, no tenderness, There is no pedal edema. There is no calf tenderness or swelling. No cords were appreciated. Neurological: CN II-XII intact, Cranial nerves III through XII are intact. There are no obvious motor or sensory deficits. Coordination appears grossly intact. Speech is normal. Psychiatric: Cooperative, appropriate mood & affect, normal judgment. (Dc Perea) Course <Dc Perea - Last Filed: 08/12/17 07:26> <Kvng Levin - Last Filed: 08/12/17 09:09> Vital Signs 08/12/17 05:44 Temperature 98.5 F Pulse Rate 113 H Respiratory 18 Rate Blood Pressure 159/90 O2 Sat by Pulse 98 Oximetry Patient is reassessed at term 7:30, CBC, CMP are reviewed AST and ALT both elevated considering he is tender over the right upper quadrant area umbilical ahead and do the CT of the abdomen and pelvis and patient be endorsed to Dr. Hamilton To follow-up on the CT of the abdomen he does have a hemorrhoids was low he would need some local treatment for the be referred to general surgeon as outpatient (Dc Perea) Medical Decision Making - Lab Data Result diagrams: 08/12/17 06:27 08/12/17 06:27 <Dc Perea - Last Filed: 08/12/17 07:26> - Lab Data Result diagrams: 08/12/17 06:27 08/12/17 06:27 <Kvng Levin - Last Filed: 08/12/17 09:09> - Lab Data Lab Results 08/12/17 08/12/17 08/12/17 Range/Units 06:27 06:27 07:25 WBC 7.2 (3.8-10.6) k/uL RBC 5.40 (4.30-5.90) m/uL Hgb 16.3 (13.0-17.5) gm/dL Hct 46.9 (39.0-53.0) % MCV 86.8 (80.0-100.0) fL MCH 30.2 (25.0-35.0) pg MCHC 34.8 (31.0-37.0) g/dL RDW 15.1 (11.5-15.5) % Plt Count 252 (150-450) k/uL Neutrophils % 58 % Lymphocytes % 31 % Monocytes % 7 % Eosinophils % 2 % Basophils % 1 % Neutrophils # 4.1 (1.3-7.7) k/uL Lymphocytes # 2.2 (1.0-4.8) k/uL Monocytes # 0.5 (0-1.0) k/uL Eosinophils # 0.1 (0-0.7) k/uL Basophils # 0.1 (0-0.2) k/uL Sodium 142 (137-145) mmol/L Potassium 4.5 (3.5-5.1) mmol/L Chloride 103 (98-107) mmol/L Carbon Dioxide 26 (22-30) mmol/L Anion Gap 13 mmol/L BUN 17 (9-20) mg/dL Creatinine 0.85 (0.66-1.25) mg/dL Est GFR (CKD-EPI)AfAm >90 (>60 ml/min/1.73 sqM) Est GFR (CKD-EPI)NonAf >90 (>60 ml/min/1.73 sqM) Glucose 114 H (74-99) mg/dL Calcium 9.0 (8.4-10.2) mg/dL Total Bilirubin 1.0 (0.2-1.3) mg/dL AST 313 H (17-59) U/L ALT 129 H (21-72) U/L Alkaline Phosphatase 99 (38-126) U/L C-Reactive Protein <5.0 (<10.0) mg/L Total Protein 7.8 (6.3-8.2) g/dL Albumin 4.3 (3.5-5.0) g/dL Lipase 196 (23-300) U/L Disposition <Dc Perea - Last Filed: 08/12/17 07:26> <Kvng Levin - Last Filed: 08/12/17 09:09> Clinical Impression: Abdominal pain, Elevated LFTs, History of heroin abuse, Alcoholic hepatitis, ETOH abuse Disposition: HOME SELF-CARE Condition: Good Instructions: Abdominal Pain (ED) Referrals: None,Stated [Primary Care Provider] - 1-2 days
--- NOTE | 2017-08-12 08:20 | CT ---
EXAMINATION TYPE: CT abdomen pelvis w con DATE OF EXAM: 08/12/2017 COMPARISON: NONE INDICATION: pain RLQ with nausea and vomiting DLP: 1609 mGycm, Automated exposure control for dose reduction was used. CONTRAST: 100 mL of Omnipaque 300. Study performed without Oral Contrast TECHNIQUE: Axial images were obtained from above the diaphragm to the pubic rami in the axial plane a t 5 mm thick sections. Reconstructed images are reviewed on the computer in the coronal plane. FINDINGS: Limited CT sections are obtained the lung bases. The lung bases are clear. CT ABDOMEN: Liver: Normal Spleen: Normal Pancreas: Normal Adrenal glands: The adrenal glands are normal. Gallbladder: Normal Kidneys: No masses are evident. No hydronephrosis is present. No cysts are present. Delayed images were obtained through the kidneys which remain unremarkable. Aorta: Normal Inferior vena cava: Normal. CT PELVIS: Loops of bowel within the abdomen are normal. Studies performed without oral contrast limiting the ev aluation. There are dilated small bowel loops within the pelvis. Consider focal ileus. The more proximal small bowel loops are nondilated. The ileum appears within normal limits Appendix: Normal as visualized. Urinary bladder: Normal. Genitourinary structures: Prostate is normal Osseous structures: No suspicious lytic or sclerotic lesions. IMPRESSIONS: 1. Mild focal ileus within the mid small bowel loops. No obstruction is evident. 2. Normal appendix
[2017-08-12 08:48] LABS: C Reactive Protein <5.0 mg/L (<10.0)
[2017-08-12] MEDS ORDERED: MORPHINE SULFATE 4 MG/ML SYRINGE IVP STA (09:15)
[2017-08-12 09:26] VITALS: BP 155/93; PULSE 101; RESP 16
== END 2017-08-12 09:27 | disposition home or self-care (01) ==
LOC: EC 05:40
DX: K70.10 Alcoholic hepatitis without ascites (principal); R10.11 Right upper quadrant pain; R10.33 Periumbilical pain; R94.5 Abnormal results of liver function studies; F10.10 Alcohol abuse, uncomplicated; F17.200 Nicotine dependence, unspecified, uncomplicated
CPT/HCPCS: 36415; 80053; 83690; 85025; 86140; 74018; 74177; 99284; 96374; 96375; 96376; J2270; J1885; Q9967

== ENCOUNTER 2017-10-14 14:27 | Inpatient (IN) | payer OTHER ==
[2017-10-14] MEDS ORDERED: SODIUM CHLORIDE 0.9% 1,000 ML IV STA (14:29)
--- NOTE | 2017-10-14 14:33 | ED ---
General Adult HPI - General Stated complaint: ETOH Time Seen by Provider: 10/14/17 14:27 Source: RN notes reviewed - History of Present Illness Initial comments: This is a 32-year-old male who presents emergency department because EMS was contacted by the patient's uncle stating that he has been extremely tired and the uncle believes he's been drinking. According to the patient he did not have any drink since 11:00 last night. Patient states over the last couple of days he's been very dizzy and he notices that the dizziness is worsened with head movement. Patient also states she's been vomiting a little bit. Patient states he is dizzy just sitting here. Patient denies any pain. Patient denies headache patient denies numbness or weakness. Patient denies any chest pain palpitations difficulty breathing or shortness of breath. Patient denies any abdominal pain. Patient denies any recent fever chills or cough. Patient denies any injury or trauma. Patient states he is not an alcoholic he was a heroin abuser but that was over 2-1/2 years ago. - Related Data Home Medications Medication Instructions Recorded Confirmed No Known Home Medications [No 08/12/17 10/14/17 Known Home Medications] Allergies Allergy/AdvReac Type Severity Reaction Status Date / Time No Known Allergies Allergy Verified 10/14/17 14:41 Review of Systems ROS Statement: Those systems with pertinent positive or pertinent negative responses have been documented in the HPI. ROS Other: All systems not noted in ROS Statement are negative. Past Medical History Past Medical History: Hypertension Additional Past Medical History / Comment(s): ETOH abuse, IVDA History of Any Multi-Drug Resistant Organisms: None Reported Past Surgical History: No Surgical Hx Reported Past Anesthesia/Blood Transfusion Reactions: No Reported Reaction Past Psychological History: Anxiety Smoking Status: Current every day smoker Past Alcohol Use History: Abuse, Daily Past Drug Use History: None Reported - Past Family History Father Family Medical History: No Reported History General Exam - General Exam Comments Initial Comments: GENERAL: Patient is well-developed and well-nourished. Patient is nontoxic and well- hydrated and is in mild distress. ENT: Neck is soft and supple. No significant lymphadenopathy is noted. Oropharynx is clear. Moist mucous membranes. Neck has full range of motion without eliciting any pain. EYES: The sclera were anicteric and conjunctiva were pink and moist. Extraocular movements were intact and pupils were equal round and reactive to light. Eyelids were unremarkable. PULMONARY: Unlabored respirations. Good breath sounds bilaterally. No audible rales rhonchi or wheezing was noted. CARDIOVASCULAR: There is a regular rate and rhythm without any murmurs gallops or rubs. ABDOMEN: Soft and nontender with normal bowel sounds. No palpable organomegaly was noted. There is no palpable pulsatile mass. SKIN: Skin is clear with no lesions or rashes and otherwise unremarkable. NEUROLOGIC: Patient is alert and oriented 3 cranial nerves II through XII are grossly intact motor and sensory are also intact patient's cerebellar testing is equal bilaterally. Patient has some slight nystagmus when looking laterally. MUSCULOSKELETAL: Normal extremities with adequate strength and full range of motion. No lower extremity swelling or edema. No calf tenderness. LYMPHATICS: No significant lymphadenopathy is noted PSYCHIATRIC: Normal psychiatric evaluation. Course Vital Signs 10/14/17 10/14/17 14:30 15:33 Temperature 97.2 F L Pulse Rate 98 93 Respiratory 17 17 Rate Blood Pressure 164/112 164/102 O2 Sat by Pulse 96 97 Oximetry Medical Decision Making - Medical Decision Making EKG shows normal sinus rhythm at 96 bpm [place] interval is 1:30 QRS is 88 QT interval 340 QTC is 429. Patient's EKG shows no ST segment elevation or depression or T wave abnormalities are noted. Patient's alcohol came back at 336 and I confronted the patient about his alcohol level and he agreed that he was probably drinking more than he initially suggested. Patient's CAT scan of the brain is negative. Patient's chest x-ray is negative. Patient remains a little bit dizzy tachycardic and slightly hypertensive. Since he came in hypotensive at this time are not couldn 't treat the high blood pressure. Spoke with Dr. Torres he agreed to admit the patient admitted the patient. - Lab Data Result diagrams: 10/14/17 14:55 10/14/17 14:55 Lab Results 10/14/17 10/14/17 10/14/17 Range/Units 14:55 14:55 14:55 WBC 6.7 (3.8-10.6) k/uL RBC 5.58 (4.30-5.90) m/uL Hgb 17.8 H (13.0-17.5) gm/dL Hct 53.9 H (39.0-53.0) % MCV 96.5 D (80.0-100.0) fL MCH 31.8 (25.0-35.0) pg MCHC 33.0 (31.0-37.0) g/dL RDW 15.6 H (11.5-15.5) % Plt Count 268 (150-450) k/uL Neutrophils % 51 % Lymphocytes % 38 % Monocytes % 5 % Eosinophils % 2 % Basophils % 1 % Neutrophils # 3.4 (1.3-7.7) k/uL Lymphocytes # 2.6 (1.0-4.8) k/uL Monocytes # 0.4 (0-1.0) k/uL Eosinophils # 0.2 (0-0.7) k/uL Basophils # 0.1 (0-0.2) k/uL Sodium 146 H (137-145) mmol/L Potassium 4.2 (3.5-5.1) mmol/L Chloride 105 (98-107) mmol/L Carbon Dioxide 22 (22-30) mmol/L Anion Gap 19 mmol/L BUN 15 (9-20) mg/dL Creatinine 0.89 (0.66-1.25) mg/dL Est GFR (CKD-EPI)AfAm >90 (>60 ml/min/1.73 sqM) Est GFR (CKD-EPI)NonAf >90 (>60 ml/min/1.73 sqM) Glucose 122 H (74-99) mg/dL Calcium 8.6 (8.4-10.2) mg/dL Magnesium 2.3 (1.6-2.3) mg/dL Total Bilirubin 0.6 (0.2-1.3) mg/dL AST 110 H (17-59) U/L ALT 77 H (21-72) U/L Alkaline Phosphatase 98 (38-126) U/L Troponin I <0.012 (0.000-0.034) ng/mL Total Protein 8.1 (6.3-8.2) g/dL Albumin 4.5 (3.5-5.0) g/dL Amylase 68 (30-110) U/L Lipase 154 (23-300) U/L Serum Alcohol 336 mg/dL Disposition Clinical Impression: Alcohol intoxication, Dizzy Disposition: ADMITTED IP TO THIS HOSP Referrals: None,Stated [Primary Care Provider] - 1-2 days Time of Disposition: 15:47
[2017-10-14 15:06] LABS: Basophils # (A) 0.1 k/uL (0-0.2); Basophils % (A) 1 %; Eosinophils # (A) 0.2 k/uL (0-0.7); Eosinophils % (A) 2 %; HCT 53.9 % (39.0-53.0); HGB 17.8 gm/dL (13.0-17.5); Lymphocytes # (A) 2.6 k/uL (1.0-4.8); Lymphocytes % (A) 38 %; MCH 31.8 pg (25.0-35.0); Mean Platelet Volume 6.5; Monocytes # (A) 0.4 k/uL (0-1.0); Monocytes % (A) 5 %; Neutrophils # (A) 3.4 k/uL (1.3-7.7); Neutrophils % (A) 51 %; Platelet Count 268 k/uL (150-450); RBC 5.58 m/uL (4.30-5.90); RDW 15.6 % (11.5-15.5); WBC 6.7 k/uL (3.8-10.6)
[2017-10-14 15:08] LABS: MCV 96.5 fL (80.0-100.0)
[2017-10-14 15:27] LABS: ALT 77 U/L (21-72); AST 110 U/L (17-59); Albumin 4.5 g/dL (3.5-5.0); Alkaline Phosphatase 98 U/L (38-126); Amylase 68 U/L (30-110); Anion Gap 19 mmol/L; Blood Urea Nitrogen 15 mg/dL (9-20); Calcium 8.6 mg/dL (8.4-10.2); Carbon Dioxide 22 mmol/L (22-30); Chloride 105 mmol/L (98-107); Glucose 122 mg/dL (74-99); Lipase 154 U/L (23-300); Magnesium 2.3 mg/dL (1.6-2.3); Sodium 146 mmol/L (137-145); Total Bilirubin 0.6 mg/dL (0.2-1.3); Total Protein 8.1 g/dL (6.3-8.2)
--- NOTE | 2017-10-14 15:30 | XR ---
EXAMINATION TYPE: XR chest 2V DATE OF EXAM: 10/14/2017 COMPARISON: 08/07/2017 HISTORY: 32-year-old male with chest pain TECHNIQUE: PA and lateral views FINDINGS: The cardiomediastinal silhouette, aorta, and pulmonary vasculature are within normal limits. Lungs an d pleural spaces are clear. IMPRESSION: No acute cardiopulmonary process.
[2017-10-14 15:37] LABS: Alcohol 336 mg/dL; Potassium 4.2 mmol/L (3.5-5.1)
--- NOTE | 2017-10-14 15:37 | CT ---
EXAMINATION TYPE: CT brain wo con DATE OF EXAM: 10/14/2017 COMPARISON: NONE HISTORY: 32-year-old male pain, Lethargic. TECHNIQUE: Examination was done in axial plane without intravenous contrast. Coronal and sagittal r econstructions performed. CT DLP: 1071.8 mGycm Automated exposure control for dose reduction was used. FINDINGS: There is no evidence of acute intracranial hemorrhage, acute ischemic changes, mass, mass-effect, or extra-axial fluid collection. There is no effacement of cerebral sulci or basal subarachnoid cister ns. There is no hydrocephalus. There is no midline shift. Macias-white matter distinction is preserv ed. Mild mucosal thickening maxillary sinuses. Orbits and globes are intact. Mastoid air cells are well p neumatized. IMPRESSION: No acute intracranial abnormality seen.
[2017-10-14] MEDS ORDERED: SODIUM CHLORIDE 0.9% 1,000 ML IV ONE (15:49)
[2017-10-14] MEDS ORDERED: THIAMINE 100 MG/ML 2 ML VIAL IM STA (15:53)
[2017-10-14] MEDS ORDERED: LORazepam 2 MG/ML INJ IV PRN ×2 (15:53)
[2017-10-14] MEDS ORDERED: DIAZEPAM 5 MG TAB PO PRN ×2 (15:54→23:20)
[2017-10-14] MEDS: LORazepam 2 MG/ML INJ IV PRN ×4 (16:46→22:56)
[2017-10-14] MEDS ORDERED: THIAMINE 100 MG TAB PO SCH (18:00)
[2017-10-14] MEDS ORDERED: NICOTINE 21MG/24HR PATCH TRANSDERM SCH (21:00)
[2017-10-14 22:58] VITALS: TEMP 99.1
[2017-10-14] MEDS ORDERED: METOPROLOL TARTRATE 12.5 MG TAB PO SCH (23:30)
[2017-10-15] MEDS: LORazepam 2 MG/ML INJ IV PRN ×2 (03:17→04:56)
--- NOTE | 2017-10-15 06:27 | HP ---
HISTORY AND PHYSICAL DATE OF SERVICE: 10/14/2017 PRESENTING COMPLAINT: Dizzy. HISTORY OF PRESENTING COMPLAINT: This is a patient I saw last night on 10/14/2017. Patient presented to the ER, dizzy, lightheaded, not feeling well. The patient does smoke cigarettes and also drinks alcohol, drinking about 11 shots a day. The last drink was the night before, but the patient is feeling tired, off, run down. The patient was found to be tachycardic and alcohol level of 336. The patient has tried to stop alcohol before, but is hooked on again. The patient has continued to smoke cigarettes. Does feel a bit anxious. REVIEW OF SYSTEMS: CONSTITUTIONAL: None. HEENT: None. RESPIRATORY: None. CARDIOVASCULAR: None. GASTROINTESTINAL: None. GENITOURINARY: None. MUSCULOSKELETAL: None. DERMATOLOGICAL: None. HEMATOLOGIC: None. LYMPHATIC: None. PSYCHIATRY: Anxious. NEUROLOGICAL: None. PAST MEDICAL HISTORY: Hypertension, alcohol abuse, did IV heroin over years ago. PAST SURGICAL HISTORY: None. SOCIAL HISTORY: The patient lives with grandparents. 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 Drinks about 11 shots a day. Smokes about a pack a day. Stopped doing IV heroin about 2-1/2 years ago. FAMILY HISTORY: Reviewed, noncontributory to presentation. HOME MEDICATIONS: None. ALLERGIES: None. PHYSICAL EXAMINATION: On examination, temperature 99.1, pulse 120, respirations 16, blood pressure 135/79, pulse ox 98% on room air. GENERAL APPEARANCE: Well built, BMI 32.4, lying in bed, slightly anxious appearing. EYES: Pupils equal. Conjunctivae normal. HENT: External appearance of nose and ears normal. Oral cavity normal. NECK: JVD not raised. Mass not palpable. RESPIRATORY: Effort normal. LUNGS: Slightly decreased breath sounds. CARDIOVASCULAR: First and second sounds normal. No edema. ABDOMEN: Distended, soft. Liver and spleen not palpable. LYMPHATIC: No lymph node palpable in the neck or axillae. PSYCHIATRY: Alert and oriented x3. Mood and affect slightly anxious appearing. NEUROLOGICAL: Pupils equal. Cranial nerves grossly intact. Power and sensation grossly intact. Minimal tremors. INVESTIGATIONS: White count 6.7, hemoglobin 17.8. Potassium 4.2. BUN and creatinine normal. AST 110, ALT 77. Troponin negative. Serum alcohol 336. EKG normal sinus rhythm. CT scan of the brain unremarkable. Chest x-ray unremarkable. ASSESSMENT: 1. Acute alcohol intoxication. 2. Chronic alcohol dependence. 3. Obesity, body mass index 32.4. 4. Early alcohol withdrawal. 5. Chronic nicotine dependence, patient is a cigarette smoker. 6. Alcoholic hepatitis. PLAN: Patient is started on CIWA scale. The patient is also getting alcohol withdrawals. Will put the patient on Valium 5 mg 3 times a day and beta jean-pierre to cut back on sympathetic drive. The patient also will be given a nicotine patch. The patient also being supplemented with thiamine and normal saline. Patient will be followed closely. Care was discussed with the nurse. QUIRINO / SHAHBAZ: [id number] /
[2017-10-15 06:32] VITALS: BP 133/88; PULSE 103; RESP 20
--- NOTE | 2017-10-16 07:40 | DS ---
DISCHARGE SUMMARY DATE OF ADMISSION: October 14, 2017. DATE LEFT AGAINST MEDICAL ADVICE: 10/15/17. FINAL DIAGNOSES: 1. Acute alcohol intoxication. 2. Chronic alcohol dependence. 3. Obesity, BMI 32.4. 4. Early alcohol withdrawal. 5. Chronic nicotine dependence, patient is a cigarette smoker. 6. Alcoholic hepatitis. HOSPITAL COURSE: See my H and P from earlier today. The patient presented with acute alcohol withdrawal. This morning, the nurse called me that patient had already left AGAINST MEDICAL ADVICE. MMIZZY / SHAHBAZ: [id number] /
== END 2017-10-15 08:13 | disposition left against medical advice (07) | DRG 894 ==
LOC: EC 14:27 → 4MS4W 15:54
PROVIDERS: ADMIT Hospitalist; ATTEND Hospitalist
DX: F10.229 Alcohol dependence with intoxication, unspecified (principal); F10.239 Alcohol dependence with withdrawal, unspecified; K70.10 Alcoholic hepatitis without ascites; E66.9 Obesity, unspecified; Y90.8 Blood alcohol level of 240 mg/100 ml or more; I10 Essential (primary) hypertension; F41.9 Anxiety disorder, unspecified; F11.11 Opioid abuse, in remission; F17.210 Nicotine dependence, cigarettes, uncomplicated; Z71.6 Tobacco abuse counseling; Z68.32 Body mass index [BMI] 32.0-32.9, adult
CPT/HCPCS: 36415; 70450; 71046; 80053; 80320; 82150; 83690; 83735; 84484; 85025; 93005; 96361; 96374; 99285

== ENCOUNTER 2018-03-15 04:07 | Inpatient (IN) | payer OTHER ==
[2018-03-15 04:43] LABS: Basophils # (A) 0.1 k/uL (0-0.2); Basophils % (A) 1 %; Eosinophils # (A) 0.1 k/uL (0-0.7); Eosinophils % (A) 2 %; HGB 14.9 gm/dL (13.0-17.5); Lymphocytes # (A) 2.4 k/uL (1.0-4.8); Lymphocytes % (A) 45 %; MCH 31.7 pg (25.0-35.0); MCHC 32.4 g/dL (31.0-37.0); MCV 97.9 fL (80.0-100.0); Monocytes # (A) 0.3 k/uL (0-1.0); Monocytes % (A) 5 %; Neutrophils # (A) 2.4 k/uL (1.3-7.7); Neutrophils % (A) 44 %; Platelet Count 200 k/uL (150-450); RDW 15.5 % (11.5-15.5); WBC 5.4 k/uL (3.8-10.6)
[2018-03-15 04:53] LABS: ALT 195 U/L (21-72); AST 696 U/L (17-59); Alkaline Phosphatase 240 U/L (38-126); Anion Gap 13 mmol/L; Blood Urea Nitrogen 14 mg/dL (9-20); Calcium 8.5 mg/dL (8.4-10.2); Carbon Dioxide 25 mmol/L (22-30); Chloride 104 mmol/L (98-107); Glucose 107 mg/dL (74-99); Potassium 4.4 mmol/L (3.5-5.1); Sodium 142 mmol/L (137-145); Total Bilirubin 4.3 mg/dL (0.2-1.3); Total Protein 7.9 g/dL (6.3-8.2)
[2018-03-15 04:54] LABS: Appearance,Urine Clear (Clear); Bilirubin,Urine 1+ (Negative); Blood,Urine Negative (Negative); Color,Urine Yellow; Glucose,Urine (UA) Negative (Negative); Ketones,Urine Negative (Negative); Leukocyte Esterase,Urine Negative (Negative); Nitrite,Urine Negative (Negative); Protein,Urine Trace (Negative); Specific Gravity,Urine 1.013 (1.001-1.035)
--- NOTE | 2018-03-15 04:57 | ED ---
Abdominal Pain HPI - General Chief Complaint: Abdominal Pain Stated Complaint: pain all over Time Seen by Provider: 03/15/18 04:14 Source: EMS Mode of arrival: EMS Limitations: no limitations - History of Present Illness Initial Comments: Dex is a 32-year-old male with a history of alcohol abuse who presents to the emergency department today for evaluation of chest pain, abdominal pain, concern for alcohol withdrawal. Patient reports that he typically drinks about 10 shots of liquor per day, he states that he has been trying to cut back in the for the past 2 days he's probably had 4-5 shots a day. He reports that he is feeling very anxious and shaky. states that for approximately one week he has been experiencing diffuse pleuritic chest pain. Pain is worse with deep inspiration or coughing. Patient also reports a minimally productive cough. Patient isn't every day smoker. He has no history of DVT or PE in the past. Patient also complains of diffuse abdominal pain. He reports nausea but no vomiting. He denies any hematemesis or hematochezia. He reports that his been able to eat and drink his usual diet. -: days(s) Location: diffuse Severity: moderate Quality: cramping Consistency: constant Improves With: nothing Worsens With: nothing Associated Symptoms: nausea - Related Data Home Medications Medication Instructions Recorded Confirmed No Known Home Medications 08/12/17 03/15/18 Allergies Allergy/AdvReac Type Severity Reaction Status Date / Time No Known Allergies Allergy Verified 03/15/18 04:13 Review of Systems ROS Statement: Those systems with pertinent positive or pertinent negative responses have been documented in the HPI. ROS Other: All systems not noted in ROS Statement are negative. Past Medical History Past Medical History: Hypertension Additional Past Medical History / Comment(s): ETOH abuse, IVDA History of Any Multi-Drug Resistant Organisms: None Reported Past Surgical History: No Surgical Hx Reported Past Anesthesia/Blood Transfusion Reactions: No Reported Reaction Past Psychological History: Anxiety Smoking Status: Current every day smoker Past Alcohol Use History: Abuse, Daily, Heavy Past Drug Use History: None Reported - Past Family History Father Family Medical History: No Reported History General Exam - General Exam Comments Initial Comments: Physical Exam GENERAL: Patient is well-developed and well-nourished. Patient is nontoxic and well- hydrated and is in no distress. HENT: Normocephalic, Atraumatic. EYES: PERRL, EOMI No scleral icterus PULMONARY: Unlabored respirations. No audible rales rhonchi or wheezing was noted. CARDIOVASCULAR: Tachycardic, regular, extremities warm and well-perfused ABDOMEN: Abdomen is soft, mild diffuse tenderness to palpation SKIN: Skin is clear with no lesions or rashes and otherwise unremarkable. : Deferred NEUROLOGIC: Patient is alert and oriented x3. Moving all extremities spontaneously MUSCULOSKELETAL: Normal extremities with adequate strength and full range of motion. No lower extremity swelling or edema. No calf tenderness. PSYCHIATRIC: Normal psychiatric evaluation. Limitations: no limitations Limitations: no limitations Course Vital Signs 03/15/18 03/15/18 04:10 06:49 Temperature 98.4 F Pulse Rate 110 H 108 H Respiratory 18 14 Rate Blood Pressure 155/108 144/99 O2 Sat by Pulse 97 97 Oximetry Medical Decision Making - Medical Decision Making The patient was seen and evaluated history was obtained from the patient Patient with multiple complaints, pleuritic chest pain for one week, subjective shortness of breath, outpatient, abdominal pain, nausea, no vomiting, concern for alcohol withdrawal Labs and imaging were ordered EKG reveals sinus tachycardia, noted to have an S1 Q3T33 pattern concerning for acute right heart strain Labs reveal elevated transaminases, AST elevated 3 Times ALT which is consistent with alcoholic hepatitis, in addition the INR is mildly elevated to 1.2 D-dimer is markedly elevated = a CT pulmonary embolism study was ordered Computed tomography scan with no acute findings I discussed with the patient that he likely has alcoholic hepatitis as well as impending alcohol withdrawal if he continues to abstain from alcohol. Patient states that he cannot go home, he states that he feels suicidal. At this time the patient cannot be medically cleared for psychiatric evaluation due to his acute hepatitis. Patient's breath alcohol is 0.2-3, patient will not be sober for 8 hours Patient care was discussed with [facility] hospitalist Dr. Del Valle who accepts the admission for abdominal pain, alcoholic hepatitis, suicidal ideation , need for medical clearance for psychiatric evaluation - Lab Data Result diagrams: 03/15/18 04:30 03/15/18 04:30 Lab Results 03/15/18 03/15/18 03/15/18 Range/Units 04:30 04:30 04:30 WBC 5.4 (3.8-10.6) k/uL RBC 4.70 (4.30-5.90) m/uL Hgb 14.9 (13.0-17.5) gm/dL Hct 46.0 (39.0-53.0) % MCV 97.9 (80.0-100.0) fL MCH 31.7 (25.0-35.0) pg MCHC 32.4 (31.0-37.0) g/dL RDW 15.5 (11.5-15.5) % Plt Count 200 (150-450) k/uL Neutrophils % 44 % Lymphocytes % 45 % Monocytes % 5 % Eosinophils % 2 % Basophils % 1 % Neutrophils # 2.4 (1.3-7.7) k/uL Lymphocytes # 2.4 (1.0-4.8) k/uL Monocytes # 0.3 (0-1.0) k/uL Eosinophils # 0.1 (0-0.7) k/uL Basophils # 0.1 (0-0.2) k/uL PT 11.7 (9.0-12.0) sec INR 1.2 H (<1.2) APTT 22.7 (22.0-30.0) sec D-Dimer (<0.60) mg/L FEU Sodium 142 (137-145) mmol/L Potassium 4.4 (3.5-5.1) mmol/L Chloride 104 (98-107) mmol/L Carbon Dioxide 25 (22-30) mmol/L Anion Gap 13 mmol/L BUN 14 (9-20) mg/dL Creatinine 0.95 (0.66-1.25) mg/dL Est GFR (CKD-EPI)AfAm >90 (>60 ml/min/1.73 sqM) Est GFR (CKD-EPI)NonAf >90 (>60 ml/min/1.73 sqM) Glucose 107 H (74-99) mg/dL Calcium 8.5 (8.4-10.2) mg/dL Total Bilirubin 4.3 H (0.2-1.3) mg/dL AST 696 H (17-59) U/L ALT 195 H (21-72) U/L Alkaline Phosphatase 240 H (38-126) U/L Troponin I (0.000-0.034) ng/mL Total Protein 7.9 (6.3-8.2) g/dL Albumin 4.0 (3.5-5.0) g/dL Lipase 212 (23-300) U/L Urine Color Urine Appearance (Clear) Urine pH (5.0-8.0) Ur Specific [place] (1.001-1.035) Urine Protein (Negative) Urine Glucose (UA) (Negative) Urine Ketones (Negative) Urine Blood (Negative) Urine Nitrite (Negative) Urine Bilirubin (Negative) Urine Urobilinogen (<2.0) mg/dL Ur Leukocyte Esterase (Negative) 03/15/18 03/15/18 03/15/18 Range/Units 04:30 04:30 04:46 WBC (3.8-10.6) k/uL RBC (4.30-5.90) m/uL Hgb (13.0-17.5) gm/dL Hct (39.0-53.0) % MCV (80.0-100.0) fL MCH (25.0-35.0) pg MCHC (31.0-37.0) g/dL RDW (11.5-15.5) % Plt Count (150-450) k/uL Neutrophils % % Lymphocytes % % Monocytes % % Eosinophils % % Basophils % % Neutrophils # (1.3-7.7) k/uL Lymphocytes # (1.0-4.8) k/uL Monocytes # (0-1.0) k/uL Eosinophils # (0-0.7) k/uL Basophils # (0-0.2) k/uL PT (9.0-12.0) sec INR (<1.2) APTT (22.0-30.0) sec D-Dimer 1.22 H (<0.60) mg/L FEU Sodium (137-145) mmol/L Potassium (3.5-5.1) mmol/L Chloride (98-107) mmol/L Carbon Dioxide (22-30) mmol/L Anion Gap mmol/L BUN (9-20) mg/dL Creatinine (0.66-1.25) mg/dL Est GFR (CKD-EPI)AfAm (>60 ml/min/1.73 sqM) Est GFR (CKD-EPI)NonAf (>60 ml/min/1.73 sqM) Glucose (74-99) mg/dL Calcium (8.4-10.2) mg/dL Total Bilirubin (0.2-1.3) mg/dL AST (17-59) U/L ALT (21-72) U/L Alkaline Phosphatase (38-126) U/L Troponin I <0.012 (0.000-0.034) ng/mL Total Protein (6.3-8.2) g/dL Albumin (3.5-5.0) g/dL Lipase (23-300) U/L Urine Color Yellow Urine Appearance Clear (Clear) Urine pH 6.0 (5.0-8.0) Ur Specific [place] 1.013 (1.001-1.035) Urine Protein Trace H (Negative) Urine Glucose (UA) Negative (Negative) Urine Ketones Negative (Negative) Urine Blood Negative (Negative) Urine Nitrite Negative (Negative) Urine Bilirubin 1+ H (Negative) Urine Urobilinogen 3.0 (<2.0) mg/dL Ur Leukocyte Esterase Negative (Negative) - EKG Data EKG Comments: EKG obtained at 4:16 AM, rate is 108 rhythm is sinus tachycardia, there is a normal axis, there are normal intervals, PA 132, QRS 88, QTC 442. No acute ST elevations or depressions no evidence of acute ischemia or infarction. Disposition Clinical Impression: Alcoholic hepatitis, Alcohol intoxication, Alcohol withdrawal, Abdominal pain Disposition: ADMITTED IP TO THIS HOSP Referrals: None,Stated [Primary Care Provider] - 1-2 days
[2018-03-15 05:04] LABS: INR 1.2 (<1.2); Partial Thromboplastin Time 22.7 sec (22.0-30.0); Prothrombin Time 11.7 sec (9.0-12.0)
[2018-03-15] MEDS ORDERED: NICOTINE 14MG/24HR PATCH TRANSDERM STA (05:04)
[2018-03-15] MEDS ORDERED: LORazepam 1 MG TAB PO STA (05:04)
[2018-03-15 05:08] LABS: Lipase 212 U/L (23-300)
--- NOTE | 2018-03-15 06:39 | CT ---
EXAM: CT Angiography Chest With Intravenous Contrast CLINICAL HISTORY: ITS.REASON CT Reason: Pain TECHNIQUE: Axial computed tomographic angiography images of the chest with intravenous contrast using pulmonary embolism protocol. CTDI is 24 mGy and DLP is 654 mGy-cm. This CT exam was performed using one or more of the following dose reduction techniques: automated exposure control, adjustment of the mA and/or kV according to patient size, and/or use of iterative reconstruction technique. 3D reconstructed images were created and reviewed. COMPARISON: No relevant prior studies available. FINDINGS: Pulmonary arteries: Unremarkable. No pulmonary embolism. Aorta: No acute findings. No thoracic aortic aneurysm. Lungs: Unremarkable. No mass. No consolidation. Pleural space: Unremarkable. No significant effusion. No pneumothorax. Heart: Unremarkable. No cardiomegaly. No significant pericardial effusion. No evidence of RV dysfunction. Bones/joints: No acute fracture. No dislocation. Soft tissues: Unremarkable. Lymph nodes: Unremarkable. No enlarged lymph nodes. Liver: Fatty enlarged liver. IMPRESSION: No acute findings.
[2018-03-15] MEDS ORDERED: NALOXONE 0.4 MG/ML 1 ML VIAL IV PRN (07:38)
[2018-03-15] MEDS ORDERED: THIAMINE 100 MG/ML 2 ML VIAL IM STA (07:47)
[2018-03-15] MEDS ORDERED: LORazepam 2 MG/ML INJ IV PRN ×2 (07:47)
[2018-03-15] MEDS: LORazepam 2 MG/ML INJ IV PRN ×7 (08:41→23:50)
[2018-03-15 08:50] LABS: Cocaine Screen,Urine Not Detected (NotDetected); Opiate Screen,Urine Not Detected (NotDetected); Phencyclidine Screen,Urine Not Detected (NotDetected); Urn Cannabinoid Scrn Not Detected (NotDetected)
[2018-03-15 08:51] LABS: Amphetamine Screen,Urine Not Detected (NotDetected); Barbiturate Screen,Urine Not Detected (NotDetected); Benzodiazepines Screen,Urine Not Detected (NotDetected); Methadone Screen, Urine Not Detected (NotDetected); Oxycodone Screen, Urine Not Detected (NotDetected); Tricyclic Antidepressant,Urine Not Detected (NotDetected)
[2018-03-15] MEDS ORDERED: INFLUENZA VACCINE (6 MOS+) 60 MCG/0.5 ML SYRINGE IM ONE (10:11)
--- NOTE | 2018-03-15 10:13 | US ---
EXAMINATION TYPE: US abdomen complete DATE OF EXAM: 03/15/2018 COMPARISON: Ultrasound 03/01/2017 CLINICAL HISTORY: Pain. RUQ pain. Alcohol cirrhosis. EXAM MEASUREMENTS: Liver Length: 19.4 cm Gallbladder Wall: 0.2 cm Spleen: 11.1 cm Right Kidney: 9.9 x 5.0 x 5.3 cm Left Kidney: 10.6 x 4.5 x 6.1 cm Limited exam due to overlying bowel gas Exam performed portable Pancreas: Obscured by bowel gas Liver: Increased attenuation, decreased visualization of vessels suggestive of fatty infiltrate. Li mited visualization. Enlarged in size. Gallbladder: wnl as visualized, suboptimally seen due to not fully distended Evidence for sonographic Erazo's sign: neg CBD: Obscured by overlying bowel gas Spleen: wnl Right Kidney: wnl Left Kidney: wnl Upper IVC: Obscured by overlying bowel gas Abd Aorta: Obscured by overlying bowel gas Kidneys show normal cortical medullary differentiation. No evident ascites. IMPRESSION: Correlate for hepatic steatosis. Exam is somewhat limited. Hepatomegaly.
--- NOTE | 2018-03-15 14:28 | P.HPIM ---
History of Present Illness 32-year-old male with a history of alcohol abuse who presents to the emergency department today for evaluation of chest pain, abdominal pain, concern for alcohol withdrawal. Patient reports that he typically drinks about 10 shots of liquor per day, he states that he has been trying to cut back in the for the past 2 days he's probably had 4-5 shots a day. He reports that he is feeling very anxious and shaky. states that for approximately one week he has been experiencing diffuse pleuritic chest pain. Pain is worse with deep inspiration or coughing, patient had a CT angios the chest which did not show any pulmonary embolism or pneumonic process Patient isn't every day smoker. He has no history of DVT or PE in the past. Patient also complains of diffuse abdominal pain. He reports nausea but no vomiting. He denies any hematemesis or hematochezia. He reports that his been able to eat and drink his usual diet. Patient's abdominal pain is epigastric burning sensation troponins and and EKG are all within normal limits. Patient denied any fever chills patient the pain is like his undergoing withdrawals patient complained of suicidal ideation because of which the patient has one-on-one sitter and psychiatry was consulted Review of Systems REVIEW OF SYSTEMS: CONSTITUTIONAL: No fever, no malaise, no fatigue. HEENT: No recent visual problems or hearing problems. Denied any sore throat. CARDIOVASCULAR: No chest pain, orthopnea, PND, no palpitations, no syncope. PULMONARY: No shortness of breath, no cough, no hemoptysis. GASTROINTESTINAL: No diarrhea, no nausea, no vomiting, no abdominal pain. Normoactive bowel sounds. NEUROLOGICAL: No headaches, no weakness, no numbness. HEMATOLOGICAL: Denies any bleeding or petechiae. GENITOURINARY: Denies any burning micturition, frequency, or urgency. MUSCULOSKELETAL/RHEUMATOLOGICAL: Denies any joint pain, swelling, or any muscle pain. ENDOCRINE: Denies any polyuria or polydipsia. The rest of the 14-point review of systems is negative. 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 He does not drive but states he is able to get rides to [employer] ([place]). Pt works at [employer]. Pt states he is afraid if he leaves the hospital that he might drink himself to . When asked if he would do that on purpose, he states "I am not sure." Smoking Status: Current every day smoker Past Alcohol Use History: Abuse, Daily, Heavy Additional Past Alcohol Use History / Comment(s): Pt started smoking in 1998 and is a ppd smoker. He states he normally drinks 12-14 vodka shots a day but has been weaning down and is currently averaging about 6 vodka shots a day. Past Drug Use History: Heroin Additional Drug Use History / Comment(s): CLEAN FROM HEROIN FOR ALMOST 3 YEARS - Past Family History Father Family Medical History: No Reported History Additional Family Medical History / Comment(s): Father is a heroin addict now on methadone. Mother Family Medical History: Hypertension Medications and Allergies Home Medications Medication Instructions Recorded Confirmed Type No Known Home Medications 08/12/17 03/15/18 History Allergies Allergy/AdvReac Type Severity Reaction Status Date / Time No Known Allergies Allergy Verified 03/15/18 08:01 Physical Exam Vitals: Vital Signs Temp Pulse Resp BP Pulse Ox 03/15/18 06:49 108 H 14 144/99 97 03/15/18 04:10 98.4 F 110 H 18 155/108 97 Intake and Output 03/14/18 03/15/18 03/15/18 22:59 06:59 14:59 Other: Weight 94.801 kg PHYSICAL EXAMINATION: GENERAL: The patient is alert and oriented x3, not in any acute distress. Well developed, well nourished. HEENT: Pupils are round and equally reacting to light. EOMI. No scleral icterus. No conjunctival pallor. Normocephalic, atraumatic. No pharyngeal erythema. No thyromegaly. CARDIOVASCULAR: S1 and S2 present. No murmurs, rubs, or gallops. PULMONARY: Chest is clear to auscultation, no wheezing or crackles. ABDOMEN: Soft, nontender, nondistended, normoactive bowel sounds. No palpable organomegaly. MUSCULOSKELETAL: No joint swelling or deformity. EXTREMITIES: No cyanosis, clubbing, or pedal edema. NEUROLOGICAL: Gross neurological examination did not reveal any focal deficits. SKIN: No rashes. Results CBC & Chem 7: 03/15/18 04:30 03/15/18 04:30 Labs: Abnormal Lab Results - Last 24 Hours (Table) 03/15/18 03/15/18 03/15/18 Range/Units 04:30 04:30 04:30 INR 1.2 H (<1.2) D-Dimer 1.22 H (<0.60) mg/L FEU Glucose 107 H (74-99) mg/dL Total Bilirubin 4.3 H (0.2-1.3) mg/dL AST 696 H (17-59) U/L ALT 195 H (21-72) U/L Alkaline Phosphatase 240 H (38-126) U/L Urine Protein (Negative) Urine Bilirubin (Negative) 03/15/18 Range/Units 04:46 INR (<1.2) D-Dimer (<0.60) mg/L FEU Glucose (74-99) mg/dL Total Bilirubin (0.2-1.3) mg/dL AST (17-59) U/L ALT (21-72) U/L Alkaline Phosphatase (38-126) U/L Urine Protein Trace H (Negative) Urine Bilirubin 1+ H (Negative) Thrombosis Risk Factor Assmnt - Choose All That Apply Any of the Below Risk Factors Present?: Yes Each Factor Represents 1 point: Obesity (BMI >25) Other Risk Factors: No Other congenital or acquired thrombophilia - If yes, enter type in comment: No Thrombosis Risk Factor Assessment Total Risk Factor Score: 1 Thrombosis Risk Factor Assessment Level: Low Risk Assessment and Plan Plan: -Alcohol overdose -Alcohol withdrawal patient is on Ativan CIWA protocol with thiamine multivitamin supplementation -Suicidal ideation patient has one-on-one sitter and psychiatry was consulted -Acute alcoholic hepatitis repeat the liver enzymes tomorrow expected to improve with the cessation of alcoholic -Major depression -Rule out pulmonary embolism -Nicotine abuse: Counseling was provided
[2018-03-15] MEDS: PANTOPRAZOLE 40 MG/10 ML VIAL IVP SCH ×2 (15:59→20:35)
[2018-03-15] MEDS: THIAMINE 100 MG TAB PO SCH (15:59)
[2018-03-15] MEDS ORDERED: ONDANSETRON 4 MG/2 ML VIAL IVP PRN (17:36)
[2018-03-15] MEDS: 1: MVI, ADULT NO.4 WITH VIT K 10 ML, THIAMINE 100 MG, FOLIC ACID 1 MG in SODIUM CHLORIDE IV SCH ×4 (23:53)
[2018-03-16] MEDS: LORazepam 2 MG/ML INJ IV PRN ×5 (01:17→10:21)
[2018-03-16] MEDS ORDERED: METOPROLOL TARTRATE 25 MG TAB PO STA (01:18)
[2018-03-16 05:50] VITALS: BP 142/96; PULSE 103; RESP 16; TEMP 99
[2018-03-16] MEDS: 1: MVI, ADULT NO.4 WITH VIT K 10 ML, THIAMINE 100 MG, FOLIC ACID 1 MG in SODIUM CHLORIDE IV SCH ×4 (07:47)
[2018-03-16] MEDS: PANTOPRAZOLE 40 MG/10 ML VIAL IVP SCH (07:48)
[2018-03-16] MEDS: THIAMINE 100 MG TAB PO SCH (07:48)
[2018-03-16] MEDS ORDERED: NICOTINE 14MG/24HR PATCH TRANSDERM SCH (09:00)
[2018-03-16] MEDS ORDERED: METOPROLOL TARTRATE 25 MG TAB PO SCH (09:00)
[2018-03-16 10:43] LABS: HCT 39.5 % (39.0-53.0); HGB 13.1 gm/dL (13.0-17.5); Hypochromasia Slight; MCH 33.7 pg (25.0-35.0); MCHC 33.3 g/dL (31.0-37.0); MCV 101.4 fL (80.0-100.0); Macrocytosis Slight; Mean Platelet Volume 12.9; Platelet Count 222 k/uL (150-450); RDW 15.6 % (11.5-15.5)
[2018-03-16] MEDS ORDERED: DIAZEPAM 5 MG TAB PO STA (12:38)
--- NOTE | 2018-03-16 13:00 | P.CN ---
Psychiatric Consult - . Consult date: 03/16/18 Consult:: 03/15/18 15:40 Suicidal depression and alcoholism i.e. alcohol use disorder severe Assessment and Plan Assessment: History of Present Illness 32-year-old male with a history of alcohol abuse who presents to the emergency department today for evaluation of chest pain, abdominal pain, concern for alcohol withdrawal. Patient's abdominal pain is epigastric burning sensation troponins and and EKG are all within normal limits. Patient denied any fever chills patient the pain is like his undergoing withdrawals patient complained of suicidal ideation because of which the patient has one-on-one sitter. 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 He does not drive but states he is able to get rides to [employer]. Pt works at [employer]. Pt states he is afraid if he leaves the hospital that he might drink himself to . When asked if he would do that on purpose, he states "I am not sure." Smoking Status: Current every day smoker Past Alcohol Use History: Abuse, Daily, Heavy Additional Past Alcohol Use History / Comment(s): Pt started smoking in 1998 and is a ppd smoker. He states he normally drinks 12-14 vodka shots a day but has been weaning down and is currently averaging about 6 vodka shots a day. Past Drug Use History: Heroin Additional Drug Use History / Comment(s): CLEAN FROM HEROIN FOR ALMOST 3 YEARS Mental Status Examination - General Appearance: [ disheveled, appears older than stated age Speech/Language: [spontaneous Attitude/Behavior: [cooperative Mood: [euthymic Affect: [full range, Orientation: [time, person, place situation] Thought Content: [wnl Risk Factors: [No suicidal (ideations, plan), and/or Homicidal (ideations, plan) Perception: [wnl, no hallucinations (auditory, visual, tactile) Thought Processes: [goal-oriented Concentration/Attention Span: [wnl] [Per observation and interview with the patient] Recent Memory: [wnl, ] [ 3 out of 3 in 3 minutes] Remote Memory: [wnl] [past events, as related history] Intelligence: [average] [based on history, based on vocabulary, syntax, grammar , and content] Judgement: [good] [per patient's behavior/history of present illness] Insight: [good] [understanding severity of illness/history of present illness] Clinical impression: This is a 32-year-old male who suffers from hypertension liver disease due to alcoholism and is not suicidal homicidal at the current time. We discussed in detail of how to go to programs 90 meetings in 90 days and get a therapist. He states he needs to get healthy and his physical so he can get insurance. Since she's had a history of [place] before for 14 days and he is quite anxious to go back to work because he wants to keep his job and keep functioning a well motivated patient. Psychiatric recommendations: I recommended and nursing staff to give 5 mg of Valium and observe him sitter several hours and then he could be discharged later on since a half life of Valium is 96 hours and cover his withdrawal. Thank you for the consultation Amol Reed D.O. PhD attending psychiatrist Tameka Grant (1) Suicidal ideation Current Visit: Yes Status: Acute Code(s): R45.851 - SUICIDAL IDEATIONS SNOMED Code(s): 3973311 (2) Alcohol intoxication Current Visit: Yes Status: Acute Code(s): F10.929 - ALCOHOL USE, UNSPECIFIED WITH INTOXICATION, UNSPECIFIED SNOMED Code(s): 47200583 (3) Alcohol withdrawal Narrative/Plan: As mentioned above recommended to the nurse use 5 mg of Valium if these intending on leaving it should be observed for matter 4 hours afterwards. Current Visit: Yes Status: Acute Code(s): F10.239 - ALCOHOL DEPENDENCE WITH WITHDRAWAL, UNSPECIFIED SNOMED Code(s): 314533986
== END 2018-03-16 13:17 | disposition left against medical advice (07) | DRG 894 ==
LOC: EC 04:07 → 4MS4W 07:38
PROVIDERS: ADMIT Internal Medicine; ATTEND Internal Medicine
PROC: 3E0234Z Introduction of Serum, Toxoid and Vaccine into Muscle, Percutaneous Approach (ICD-10-PCS; principal; 2018-03-15)
DX: F10.239 Alcohol dependence with withdrawal, unspecified (principal); R45.851 Suicidal ideations; K70.10 Alcoholic hepatitis without ascites; F10.229 Alcohol dependence with intoxication, unspecified; B19.20 Unspecified viral hepatitis C without hepatic coma; E53.8 Deficiency of other specified B group vitamins; I10 Essential (primary) hypertension; Z23 Encounter for immunization; F32.9 Major depressive disorder, single episode, unspecified; F41.9 Anxiety disorder, unspecified; F11.21 Opioid dependence, in remission; F17.200 Nicotine dependence, unspecified, uncomplicated; Z71.6 Tobacco abuse counseling; Z53.21 Procedure and treatment not carried out due to patient leaving prior to being seen by health care provider; Z87.01 Personal history of pneumonia (recurrent); Z82.49 Family history of ischemic heart disease and other diseases of the circulatory system; Z81.3 Family history of other psychoactive substance abuse and dependence
CPT/HCPCS: 36415; 71275; 76700; 80053; 80306; 81003; 83690; 84484; 85025; 85027; 85379; 85610; 85730; 90686; 96372; 96374; 96375; 96376; 99285

== ENCOUNTER 2018-03-17 12:05 | Inpatient (IN) | payer OTHER ==
[2018-03-17] MEDS ORDERED: SODIUM CHLORIDE 0.9% 1,000 ML IV STA (12:35)
--- NOTE | 2018-03-17 12:49 | ED ---
Alcohol HPI <Yaniv Beth - Last Filed: 03/17/18 13:14> - General Source: patient, family, RN notes reviewed (+) Mode of arrival: wheelchair Limitations: altered mental status <Kuldeep Jaramillo - Last Filed: 03/17/18 13:18> - General Chief Complaint: Alcohol Stated Complaint: ETOH Time Seen by Provider: 03/17/18 12:34 - History of Present Illness Initial Comments: 32-year-old male presents emergency Department with grandfather for alcohol abuse. Patient is chronic alcoholic. Patient states that he was in the hospital sign out AMA because he did not want to wait for medications though he states he wants help now. Patient states she's not suicidal or homicidal. Patient is severely intoxicated and having difficulty at home per grandfather. Patient denies any nausea vomiting diarrhea constipation this time. Patient drinks multiple shots of liquor daily. Patient denies any other complaints. ( Kuldeep Jaramillo) - Related Data Home Medications Medication Instructions Recorded Confirmed No Known Home Medications 08/12/17 03/15/18 Allergies Allergy/AdvReac Type Severity Reaction Status Date / Time No Known Allergies Allergy Verified 03/17/18 12:51 Review of Systems ROS Other: All systems not noted in ROS Statement are negative. <Yaniv Beth - Last Filed: 03/17/18 13:14> ROS Other: All systems not noted in ROS Statement are negative. <Kuldeep Jaramillo - Last Filed: 03/17/18 13:18> ROS Statement: Those systems with pertinent positive or pertinent negative responses have been documented in the HPI. 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 Mother Family Medical History: Hypertension <Kuldeep Jaramillo - Last Filed: 03/17/18 13:18> General Exam Limitations: altered mental status General appearance: alert, in no apparent distress, appears intoxicated Head exam: Present: atraumatic, normocephalic, normal inspection Eye exam: Present: normal appearance, PERRL, EOMI. Absent: scleral icterus, conjunctival injection, periorbital swelling ENT exam: Present: normal exam, normal oropharynx, mucous membranes moist Neck exam: Present: normal inspection, full ROM. Absent: tenderness, meningismus, lymphadenopathy Respiratory exam: Present: normal lung sounds bilaterally. Absent: respiratory distress, wheezes, rales, rhonchi, stridor Cardiovascular Exam: Present: regular rate, normal rhythm, normal heart sounds. Absent: systolic murmur, diastolic murmur, rubs, gallop, clicks GI/Abdominal exam: Present: soft, normal bowel sounds. Absent: distended, tenderness, guarding, rebound, rigid Back exam: Absent: CVA tenderness (R), CVA tenderness (L) Skin exam: Present: warm, dry, intact, normal color. Absent: rash <Kuldeep Jaramillo - Last Filed: 03/17/18 13:18> Vital Signs 03/17/18 12:14 Temperature 97.5 F L Pulse Rate 103 H Respiratory 14 Rate Blood Pressure 141/89 O2 Sat by Pulse 95 Oximetry Medical Decision Making <Yaniv Beth - Last Filed: 03/17/18 13:14> <Kuldeep Jaramillo - Last Filed: 03/17/18 13:18> - Medical Decision Making Case discussed with Dr. London. (Yaniv Beth) 32-year-old male presents emergency Department for alcohol intoxication. Patient be admitted for alcohol abuse, alcohol withdrawal. Patient was placed on CIWA, Ativan. (Kuldeep Jaramillo) Disposition <Yaniv Beth - Last Filed: 03/17/18 13:14> Time of Disposition: 12:49 <Kuldeep Jaramillo - Last Filed: 03/17/18 13:18> Clinical Impression: Alcohol intoxication, Alcoholic hepatitis Disposition: ADMITTED IP TO THIS HOSP Condition: Stable Referrals: None,Stated [Primary Care Provider] - 1-2 days
[2018-03-17] MEDS ORDERED: SODIUM CHLORIDE 0.9% 1,000 ML with MVI, ADULT NO.4 WITH VIT K 10 ML, THIAMINE 100 MG, F... IV ONE ×4 (13:00)
[2018-03-17] MEDS ORDERED: LORazepam 2 MG/ML INJ IV PRN (13:19)
[2018-03-17 13:43] LABS: Anisocytosis Slight; Basophils # (A) 0.1 k/uL (0-0.2); Basophils % (A) 1 %; Eosinophils # (A) 0.2 k/uL (0-0.7); Eosinophils % (A) 3 %; HCT 44.6 % (39.0-53.0); HGB 13.9 gm/dL (13.0-17.5); Lymphocytes # (A) 2.8 k/uL (1.0-4.8); Lymphocytes % (A) 41 %; MCH 32.4 pg (25.0-35.0); MCHC 31.3 g/dL (31.0-37.0); MCV 103.5 fL (80.0-100.0); Macrocytosis Moderate; Mean Platelet Volume 7.4; Monocytes # (A) 0.3 k/uL (0-1.0); Monocytes % (A) 5 %; Neutrophils # (A) 3.1 k/uL (1.3-7.7); Neutrophils % (A) 47 %; Platelet Count 171 k/uL (150-450); RBC 4.31 m/uL (4.30-5.90); RDW 16.2 % (11.5-15.5); WBC 6.6 k/uL (3.8-10.6)
[2018-03-17 13:47] LABS: ALT 207 U/L (21-72); Albumin 3.8 g/dL (3.5-5.0); Alkaline Phosphatase 201 U/L (38-126); Amylase 52 U/L (30-110); Anion Gap 16 mmol/L; Blood Urea Nitrogen 5 mg/dL (9-20); Calcium 9.1 mg/dL (8.4-10.2); Carbon Dioxide 20 mmol/L (22-30); Chloride 109 mmol/L (98-107); Glucose 106 mg/dL (74-99); Lipase 233 U/L (23-300); Potassium 3.6 mmol/L (3.5-5.1); Sodium 145 mmol/L (137-145); Total Bilirubin 6.2 mg/dL (0.2-1.3); Total Protein 7.6 g/dL (6.3-8.2)
[2018-03-17 13:53] LABS: Appearance,Urine Clear (Clear); Bilirubin,Urine Negative (Negative); Blood,Urine Trace (Negative); Color,Urine Yellow; Glucose,Urine (UA) Negative (Negative); INR 1.1 (<1.2); Ketones,Urine Negative (Negative); Leukocyte Esterase,Urine Negative (Negative); Nitrite,Urine Negative (Negative); PH, Urine 6.5 (5.0-8.0); Protein,Urine Negative (Negative); Prothrombin Time 10.4 sec (9.0-12.0); RBC,Urine <1 /hpf (0-5); Specific Gravity,Urine 1.002 (1.001-1.035); Urobilinogen,Urine <2.0 mg/dL (<2.0)
[2018-03-17 14:47] LABS: AST 736 U/L (17-59)
--- NOTE | 2018-03-17 15:20 | P.HPIM ---
History of Present Illness 30-year-old gentleman came in the emergency department at all call overdose patient says his delirious was having hallucinations , left [place] yesterday. Patient at the time was complaining of suicidal ideations, was evaluated by psychiatric the. Patient presently denied any suicidal ideations depressed and crying and willing to stay in the hospital to get over the withdrawals patient was started on IV fluids. He denied any abdominal pain nausea vomiting diarrhea. Patient didn't tell me exactly how much alcohol the did drink but his face too much. Review of Systems REVIEW OF SYSTEMS: CONSTITUTIONAL: No fever, no malaise, no fatigue. HEENT: No recent visual problems or hearing problems. Denied any sore throat. CARDIOVASCULAR: No chest pain, orthopnea, PND, no palpitations, no syncope. PULMONARY: No shortness of breath, no cough, no hemoptysis. GASTROINTESTINAL: No diarrhea, no nausea, no vomiting, no abdominal pain. Normoactive bowel sounds. NEUROLOGICAL: No headaches, no weakness, no numbness. HEMATOLOGICAL: Denies any bleeding or petechiae. GENITOURINARY: Denies any burning micturition, frequency, or urgency. MUSCULOSKELETAL/RHEUMATOLOGICAL: Denies any joint pain, swelling, or any muscle pain. ENDOCRINE: Denies any polyuria or polydipsia. The rest of the 14-point review of systems is negative. 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 Mother Family Medical History: Hypertension Medications and Allergies Home Medications Medication Instructions Recorded Confirmed Type No Known Home Medications 08/12/17 03/15/18 History Allergies Allergy/AdvReac Type Severity Reaction Status Date / Time No Known Allergies Allergy Verified 03/17/18 12:51 Physical Exam Vitals: Vital Signs Temp Pulse Resp BP Pulse Ox 03/17/18 15:05 18 03/17/18 14:41 135/95 98 03/17/18 13:18 85 18 130/75 97 03/17/18 12:14 97.5 F L 103 H 14 141/89 95 Intake and Output 03/17/18 03/17/18 03/17/18 06:59 14:59 22:59 Other: Voiding Method Toilet Weight 90.718 kg PHYSICAL EXAMINATION: GENERAL: The patient is drowsy, tearful and depressed HEENT: Pupils are round and equally reacting to light. EOMI. No scleral icterus. No conjunctival pallor. Normocephalic, atraumatic. No pharyngeal erythema. No thyromegaly. CARDIOVASCULAR: S1 and S2 present. No murmurs, rubs, or gallops. PULMONARY: Chest is clear to auscultation, no wheezing or crackles. ABDOMEN: Soft, nontender, nondistended, normoactive bowel sounds. No palpable organomegaly. MUSCULOSKELETAL: No joint swelling or deformity. EXTREMITIES: No cyanosis, clubbing, or pedal edema. NEUROLOGICAL: Gross neurological examination did not reveal any focal deficits. SKIN: No rashes. Results CBC & Chem 7: 03/17/18 13:04 03/17/18 13:04 Labs: Abnormal Lab Results - Last 24 Hours (Table) 03/17/18 03/17/18 03/17/18 Range/Units 13:04 13:04 13:04 MCV 103.5 H (80.0-100.0) fL RDW 16.2 H (11.5-15.5) % Chloride 109 H (98-107) mmol/L Carbon Dioxide 20 L (22-30) mmol/L BUN 5 L (9-20) mg/dL Glucose 106 H (74-99) mg/dL Total Bilirubin 6.2 H (0.2-1.3) mg/dL AST 736 H (17-59) U/L ALT 207 H (21-72) U/L Alkaline Phosphatase 201 H (38-126) U/L Urine Blood Trace H (Negative) Thrombosis Risk Factor Assmnt - Choose All That Apply Any of the Below Risk Factors Present?: Yes Each Factor Represents 1 point: Obesity (BMI >25) Other Risk Factors: No Other congenital or acquired thrombophilia - If yes, enter type in comment: No Thrombosis Risk Factor Assessment Total Risk Factor Score: 1 Thrombosis Risk Factor Assessment Level: Low Risk Assessment and Plan Plan: Assessment and Plan Plan: -Alcohol overdose: Patient will be continued on IV fluids thiamine multivitamin supplementation. -Alcohol withdrawal patient is on Ativan CIWA protocol with thiamine multivitamin supplementation -Acute alcoholic hepatitis repeat the liver enzymes tomorrow expected to improve with the cessation of alcoholic -Major depression -Nicotine abuse: Counseling was provided
[2018-03-17] MEDS: LORazepam 2 MG/ML INJ IV PRN ×5 (15:31→23:36)
[2018-03-17] MEDS ORDERED: THIAMINE 100 MG TAB PO SCH (17:00)
[2018-03-17] MEDS: PANTOPRAZOLE 40 MG/10 ML VIAL IVP SCH (17:15)
[2018-03-17] MEDS ORDERED: SODIUM CHLORIDE 0.9% 1,000 ML with POTASSIUM CHLORIDE 20 MEQ, MVI, ADULT NO.4 WITH VIT ... IV SCH ×5 (18:15)
[2018-03-17] MEDS: NICOTINE 21MG/24HR PATCH TRANSDERM SCH (19:24)
[2018-03-17] MEDS: cloNIDine HCL 0.1 MG TAB PO SCH (20:03)
[2018-03-17] MEDS: ONDANSETRON 4 MG/2 ML VIAL IVP PRN (22:30)
[2018-03-18] MEDS: LORazepam 2 MG/ML INJ IV PRN ×9 (01:06→20:45)
[2018-03-18 08:16] LABS: ALT 215 U/L (21-72); Albumin 3.5 g/dL (3.5-5.0); Alkaline Phosphatase 178 U/L (38-126); Anion Gap 10 mmol/L; Blood Urea Nitrogen 4 mg/dL (9-20); Calcium 8.7 mg/dL (8.4-10.2); Carbon Dioxide 23 mmol/L (22-30); Chloride 109 mmol/L (98-107); Glucose 111 mg/dL (74-99); Sodium 142 mmol/L (137-145); Total Bilirubin 5.7 mg/dL (0.2-1.3); Total Protein 6.9 g/dL (6.3-8.2)
[2018-03-18 08:45] LABS: AST 870 U/L (17-59)
[2018-03-18] MEDS: cloNIDine HCL 0.1 MG TAB PO SCH ×2 (09:11→20:45)
[2018-03-18] MEDS: NICOTINE 21MG/24HR PATCH TRANSDERM SCH (09:11)
[2018-03-18] MEDS: PANTOPRAZOLE 40 MG/10 ML VIAL IVP SCH ×2 (09:11→20:45)
[2018-03-18 14:05] VITALS: BMI 31.3
--- NOTE | 2018-03-18 14:12 | CT ---
EXAMINATION TYPE: CT abdomen pelvis w con DATE OF EXAM: 03/18/2018 COMPARISON: 08/12/2017 HISTORY: RUQ pain CT DLP: 1193.8 mGycm Automated exposure control for dose reduction was used. TECHNIQUE: Helical acquisition of images was performed from the lung bases through the pelvis. CONTRAST: Performed without Oral Contrast and with IV Contrast, patient injected with 100 mL of Isovue 300. FINDINGS: LUNG BASES: No significant abnormality is appreciated. LIVER/GB: There is hepatomegaly and the hepatic parenchyma is diffusely hypoattenuated in comparison to that of the spleen, most commonly seen in hepatic steatosis. This finding limits evaluation for he patic masses. No gross evidence of hepatic mass is seen. No intrahepatic biliary ductal dilatation. G allbladder is contracted. Gallbladder wall hyperemia may be secondary to the adjacent hepatocellular disease. No right upper quadrant fat stranding change or common bile duct dilatation is seen. PANCREAS: No significant abnormality is seen. SPLEEN: Spleen is prominent in size measuring 13.1 cm in longitudinal dimension.. ADRENALS: No significant abnormality is seen. KIDNEYS: No significant abnormality is seen. FREE AIR: No free air is visualized. RETROPERITONEAL ADENOPATHY: There are few prominent lymph nodes near the george hepatis measuring up to 1 cm in short axis. No greater than 1 cm short axis lymph nodes are appreciated in the abdomen or pelvis. OSSEOUS STRUCTURES: No significant abnormality is seen. Degenerative disc disease is appreciated of the lower lumbar spine. BOWEL: Terminal ileum is nondistended although there appears to be slight bowel wall thickening and coronal image 55. No surrounding inflammatory fat stranding is seen. No dilated large or small bowel. The appendix is air-filled and within normal limits and axial image 67. OTHER: Abdominal aorta is of normal course and caliber. IMPRESSION: 1. HEPATIC STEATOSIS AND HEPATOMEGALY IN COMPARISON TO THE PRIOR 08/12/2017, AT LEAST MODERATE IN DEGR EE. GALLBLADDER IS CONTRACTED AND GALLBLADDER WALL HYPEREMIA MAY BE RELATIVE OR RELATED TO THE ADJACE NT HEPATOCELLULAR DISEASE THERE IS NO RIGHT UPPER QUADRANT FAT STRANDING OR COMMON BILE DUCT ENLAR GEMENT TO SUGGEST CT EVIDENCE OF ACUTE CHOLECYSTITIS. CORRELATION WITH SERUM LABORATORY VALUES IS REC OMMENDED HOWEVER. 2. PROMINENT SIZE OF THE SPLEEN APPROACHING CRITERIA FOR SPLENOMEGALY. 3. THICKENED TERMINAL ILEUM THAT MAY RELATE TO NONDISTENTION OR INFLAMMATORY BOWEL DISEASE SUCH CR OHN'S DISEASE. NO CT EVIDENCE OF APPENDICITIS.
--- NOTE | 2018-03-18 16:42 | PN ---
PROGRESS NOTE DATE OF SERVICE: 03/18/2018 This 32-year-old gentleman was admitted with alcohol overdose and withdrawals, also had significant vomiting and abdominal discomfort today. The patient is being closely monitored at this time. The patient is on CIWA protocol. The patient's LFTs elevated indicating alcoholic acute alcoholic hepatitis also. PAST MEDICAL HISTORY: Reviewed. REVIEW OF SYSTEMS: Cardiovascular: No angina or palpitations. Respiration as mentioned earlier. GI: As mentioned earlier. no dysuria. Nervous system: Mild diffuse weakness. CURRENT MEDICATIONS ARE: Reviewed and include: 1. Catapres 0.1 p.o. b.i.d. 2. Dilaudid 0.5 q.6h p.r.n. 3. Ativan 1 mg p.r.n. 4. CIWA protocol. 5. Habitrol 21 daily. 6. Zofran. 7. Protonix 40 mg IV b.i.d. 8. TPN. PHYSICAL EXAM: GENERAL: Patient is alert, oriented x3. VITAL SIGNS: Pulse 102, blood pressure 130/89, respirations 18, temperature 99.4 , pulse ox 98% on room air. HEENT: Conjunctivae normal. Oral mucosa moist. NECK is no jugular venous distention. No carotid bruit. No lymph nodes. CARDIOVASCULAR SYSTEM: S1, S2. RESPIRATORY: Breath sounds diminished in the bases. Bilateral scattered rhonchi and crackles. ABDOMEN: Soft. Mild diffuse discomfort in the epigastrium. No guarding. No rigidity. No mass palpable. LEGS: No edema. No swelling. CENTRAL NERVOUS SYSTEM: No focal deficits. LABS: WBC 6.2, MCV 103.5, total bilirubin 5.7, AST is 817, ALT is 250. Other labs are noted. ASSESSMENT: 1. Acute alcohol intoxication. 2. Acute alcohol withdrawal and acute delirium tremens. 3. Acute alcoholic hepatitis. 4. Major depression. 5. History of nicotine dependence. 6. Increased AST, ALT, and total bilirubin. 7. Increased MCV. 8. History of pneumonia. 9. History of hypertension. 10.History of hepatitis C. 11.History of IV drug abuse. 12.Anxiety/Depression. RECOMMENDATION AND DISCUSSION: In this 32-year-old gentleman who presented with multiple complex medical issues , we will monitor the patient closely, continue the current medications, management and CIWA protocol. Repeat labs. I would also recommend a CT scan of the abdomen and pelvis to complete the workup. The CT scan of the abdomen and pelvis showed hepatomegaly, contracted gallbladder, splenomegaly and thickened terminal ileum. We will continue to monitor symptomatic treatment. IV Protonix. Pain medications. workers compensation manager to evaluate. Psych consultation as an outpatient. Guarded prognosis. Further recommendations to follow. See orders for details. MMODL / IJN: [id number] / MTDD
[2018-03-18] MEDS: HYDROmorphone 1 MG/ML 1 ML SYRINGE IVP PRN ×2 (17:08→23:10)
[2018-03-18] MEDS: 1: MVI, ADULT NO.4 WITH VIT K 10 ML, THIAMINE 100 MG, FOLIC ACID 1 MG in SODIUM CHLORIDE IV SCH ×4 (17:10)
[2018-03-19] MEDS: LORazepam 2 MG/ML INJ IV PRN ×6 (00:30→21:47)
[2018-03-19] MEDS: ONDANSETRON 4 MG/2 ML VIAL IVP PRN (03:56)
[2018-03-19] MEDS: 1: MVI, ADULT NO.4 WITH VIT K 10 ML, THIAMINE 100 MG, FOLIC ACID 1 MG in SODIUM CHLORIDE IV SCH ×8 (04:13→17:38)
[2018-03-19] MEDS: HYDROmorphone 1 MG/ML 1 ML SYRINGE IVP PRN ×2 (06:30→19:58)
[2018-03-19] MEDS: PANTOPRAZOLE 40 MG/10 ML VIAL IVP SCH (07:58)
[2018-03-19] MEDS: NICOTINE 21MG/24HR PATCH TRANSDERM SCH (07:58)
[2018-03-19] MEDS: cloNIDine HCL 0.1 MG TAB PO SCH ×2 (07:59→19:58)
[2018-03-19 12:26] LABS: ALT 213 U/L (21-72); AST 719 U/L (17-59); Albumin 3.7 g/dL (3.5-5.0); Alkaline Phosphatase 158 U/L (38-126); Anion Gap 8 mmol/L; Blood Urea Nitrogen 6 mg/dL (9-20); Calcium 9.6 mg/dL (8.4-10.2); Carbon Dioxide 30 mmol/L (22-30); Chloride 101 mmol/L (98-107); Glucose 98 mg/dL (74-99); Potassium 4.4 mmol/L (3.5-5.1); Sodium 139 mmol/L (137-145); Total Protein 7.4 g/dL (6.3-8.2)
[2018-03-19 12:39] LABS: Anisocytosis Slight; Basophils # (A) 0.1 k/uL (0-0.2); Basophils % (A) 1 %; Eosinophils # (A) 0.2 k/uL (0-0.7); Eosinophils % (A) 4 %; HCT 39.2 % (39.0-53.0); HGB 12.6 gm/dL (13.0-17.5); Hypochromasia Slight; Lymphocytes # (A) 1.9 k/uL (1.0-4.8); Lymphocytes % (A) 35 %; MCH 33.4 pg (25.0-35.0); MCHC 32.2 g/dL (31.0-37.0); MCV 103.7 fL (80.0-100.0); Macrocytosis Moderate; Mean Platelet Volume 8.1; Monocytes # (A) 0.3 k/uL (0-1.0); Monocytes % (A) 5 %; Neutrophils # (A) 2.9 k/uL (1.3-7.7); Neutrophils % (A) 53 %; Platelet Count 145 k/uL (150-450); RBC 3.78 m/uL (4.30-5.90); RDW 16.8 % (11.5-15.5); WBC 5.4 k/uL (3.8-10.6)
[2018-03-19 12:53] LABS: Poikilocytosis (M) Present; Polychromasia Present; Stomatocytes Present
[2018-03-19 12:54] LABS: Target Cells Present
[2018-03-19] MEDS ORDERED: ARTIFICIAL TEARS-HYPROMELLOSE DROPS 15 ML BTL BOTH EYES PRN (15:23)
--- NOTE | 2018-03-19 16:25 | PN ---
PROGRESS NOTE DATE OF SERVICE: 03/19/2018 This 32-year-old gentleman who was admitted with acute alcohol intoxication also had features if acute alcohol withdrawal. The patient also had history of major depression. The patient also had a history of smoking also. AST/ALT levels elevated indicating acute alcohol hepatitis. Patient being closely monitored. PAST MEDICAL HISTORY: Reviewed. REVIEW OF SYSTEMS: CARDIOVASCULAR: No angina or palpitations. RESPIRATION: As mentioned earlier. GI: No nausea or vomiting. : No dysuria. NERVOUS SYSTEM: No numbness or weakness. CURRENT MEDICATIONS ARE: Reviewed and include: 1. Catapres 0.1 b.i.d. 2. Dilaudid 0.5 q.6h p.r.n. 3. Ativan. 4. Habitrol 21 daily. 5. Protonix 40 mg daily. 6. Vitamin supplements. PHYSICAL EXAMINATION: Alert, oriented times three. Pulse 112, blood pressure 160/100, respiration 18, temp 98.9, pulse ox 97% on room air. HEENT: Conjunctivae normal. Oral mucosa moist. NECK: No jugular venous distention. No carotid bruit. No lymph node enlargement. CARDIOVASCULAR: S1, S2. RESPIRATORY: Breath sounds diminished in the bases. No rhonchi. No crackles. ABDOMEN: Soft. Mild diffuse discomfort. LEGS are no edema, no swelling. NERVOUS SYSTEM: No focal deficits. LABS: WBC 5.5, hemoglobin 12.6, MCV 103.7, sodium 130. Potassium 4.4. Bilirubin is 7.7, AST 719. ASSESSMENT: 1. Acute alcohol intoxication. 2. Acute alcohol withdrawal and acute delirium tremens. 3. Acute alcoholic hepatitis. 4. Major depression. 5. History of nicotine dependence. 6. Increased AST, ALT, total bilirubin. 7. Increased MCV. 8. History of pneumonia. 9. History of hypertension. 10.History hepatitis C. 11.History of IV drug abuse. 12.Anxiety/depression. RECOMMENDATIONS AND DISCUSSION: Recommend to continue current medications, management and symptomatic treatment. Otherwise, monitor bilirubin closely. Also recommend full inpatient admission for evaluation and treatment. Otherwise I would also recommend Gastroenterology consultation also. Guarded prognosis. Further recommendations to follow. MMODL / IJN: [id number] /
[2018-03-19] MEDS: PANTOPRAZOLE 40 MG TABLET PO SCH (17:46)
[2018-03-20] MEDS: LORazepam 2 MG/ML INJ IV PRN ×9 (00:13→23:41)
[2018-03-20] MEDS: HYDROmorphone 1 MG/ML 1 ML SYRINGE IVP PRN ×2 (02:44→23:47)
[2018-03-20] MEDS: 1: MVI, ADULT NO.4 WITH VIT K 10 ML, THIAMINE 100 MG, FOLIC ACID 1 MG in SODIUM CHLORIDE IV SCH ×8 (02:45→13:55)
[2018-03-20] MEDS: cloNIDine HCL 0.1 MG TAB PO SCH ×3 (08:00→23:43)
[2018-03-20] MEDS: NICOTINE 21MG/24HR PATCH TRANSDERM SCH (08:00)
[2018-03-20] MEDS: PANTOPRAZOLE 40 MG TABLET PO SCH ×2 (08:00→15:07)
[2018-03-20 08:56] LABS: INR 1.2 (<1.2); Prothrombin Time 11.1 sec (9.0-12.0)
[2018-03-20 09:09] LABS: ALT 196 U/L (21-72); AST 569 U/L (17-59); Albumin 3.9 g/dL (3.5-5.0); Alkaline Phosphatase 180 U/L (38-126); Anion Gap 10 mmol/L; Blood Urea Nitrogen 6 mg/dL (9-20); Calcium 9.8 mg/dL (8.4-10.2); Carbon Dioxide 29 mmol/L (22-30); Chloride 101 mmol/L (98-107); Glucose 110 mg/dL (74-99); Potassium 4.2 mmol/L (3.5-5.1); Sodium 140 mmol/L (137-145); Total Protein 7.7 g/dL (6.3-8.2)
[2018-03-20 09:27] LABS: Anisocytosis Slight; HCT 40.2 % (39.0-53.0); HGB 12.9 gm/dL (13.0-17.5); MCH 33.1 pg (25.0-35.0); MCHC 32.2 g/dL (31.0-37.0); MCV 102.9 fL (80.0-100.0); Macrocytosis Moderate; Mean Platelet Volume 8.3; Platelet Count 146 k/uL (150-450); RBC 3.91 m/uL (4.30-5.90); WBC 5.9 k/uL (3.8-10.6)
[2018-03-20] MEDS ORDERED: LORazepam 2 MG/ML INJ IV PRN (09:55)
[2018-03-20 10:46] LABS: Eosinophils # (M) 0.24 k/uL (0-0.7); Lymphocytes # (M) 1.59 k/uL (1.0-4.8); Monocytes # (M) 0.59 k/uL (0-1.0); Neutrophils # (M) 3.48 k/uL (1.3-7.7); Neutrophils % (M) 59 %; Nucleated Red Blood Cells 0 /100 WBC (0-0); Total Cells Counted 100
[2018-03-20 10:47] LABS: Poikilocytosis (M) Present
[2018-03-20] MEDS ORDERED: cloNIDine HCL 0.1 MG TAB PO PRN (15:37)
[2018-03-20 17:41] LABS: Hepatitis A Antibody IgM Non-Reactive (Non-Reactive); Hepatitis B Core IgM Non-Reactive (Non-Reactive)
--- NOTE | 2018-03-20 21:38 | PN ---
PROGRESS NOTE DATE OF SERVICE: 03/20/2018 This 32-year-old gentleman was admitted with acute alcohol intoxication, still having delirium tremens. No chest pain. No palpitations. No fever. EXAM: Alert and oriented x3. Pulse is 110, blood pressure 148/90, respiration 16, temperature 97.2, pulse ox 94% on room air. HEENT: Conjunctivae normal. NECK: No jugular venous distention. CARDIOVASCULAR: S1, S2. RESPIRATORY: Breath sounds diminished in the bases. A few scattered rhonchi. ABDOMEN is soft, nontender. Legs are no edema. No swelling. CENTRAL NERVOUS SYSTEM: No focal deficits. LABORATORY DATA: WBC 5.2, hemoglobin 12.9, INR 1.2. AST/ALT noted. Bilirubin is still elevated to 7. ASSESSMENT: 1. Acute alcohol intoxication. 2. Acute alcohol withdrawal and acute delirium tremens. 3. Acute alcoholic hepatitis. 4. Major depression. 5. Hypertension. 6. History of nicotine dependence. 7. Increased AST, ALT, total bilirubin. 8. Increased MCV. 9. History of pneumonia. 10.History of hepatitis C. 11.History IV drug abuse. 12.Anxiety, depression. RECOMMENDATIONS AND DISCUSSION: Recommend to continue current medications. Continue symptomatic treatment. Increase the dose of clonidine. Otherwise continue to monitor. We will add beta blockers. Guarded prognosis. Further recommendations to follow. See orders for further details. MMODL / IJN: [id number] / MTDD
[2018-03-20] MEDS: METOPROLOL TARTRATE 12.5 MG TAB PO SCH (23:43)
[2018-03-21] MEDS: 1: MVI, ADULT NO.4 WITH VIT K 10 ML, THIAMINE 100 MG, FOLIC ACID 1 MG in SODIUM CHLORIDE IV SCH ×8 (01:21→12:19)
[2018-03-21 01:37] VITALS: TEMP 98.4
[2018-03-21] MEDS: LORazepam 2 MG/ML INJ IV PRN ×3 (01:42→08:22)
[2018-03-21] MEDS: HYDROmorphone 1 MG/ML 1 ML SYRINGE IVP PRN (05:26)
[2018-03-21 07:20] VITALS: BP 141/90; PULSE 79; RESP 20
[2018-03-21] MEDS: cloNIDine HCL 0.1 MG TAB PO SCH (08:21)
[2018-03-21] MEDS: PANTOPRAZOLE 40 MG TABLET PO SCH (08:21)
[2018-03-21] MEDS: METOPROLOL TARTRATE 12.5 MG TAB PO SCH (08:22)
[2018-03-21] MEDS: NICOTINE 21MG/24HR PATCH TRANSDERM SCH (08:22)
[2018-03-21 10:10] LABS: Anisocytosis Slight; Basophils # (A) 0.1 k/uL (0-0.2); Basophils % (A) 1 %; Eosinophils # (A) 0.2 k/uL (0-0.7); Eosinophils % (A) 3 %; HCT 37.5 % (39.0-53.0); HGB 11.7 gm/dL (13.0-17.5); Hypochromasia Marked; INR 1.2 (<1.2); Lymphocytes # (A) 1.2 k/uL (1.0-4.8); Lymphocytes % (A) 20 %; MCH 33.2 pg (25.0-35.0); MCHC 31.2 g/dL (31.0-37.0); MCV 106.5 fL (80.0-100.0); Macrocytosis Marked; Mean Platelet Volume 8.6; Monocytes # (A) 0.5 k/uL (0-1.0); Monocytes % (A) 7 %; Neutrophils % (A) 66 %; Platelet Count 269 k/uL (150-450); Prothrombin Time 11.5 sec (9.0-12.0); RBC 3.53 m/uL (4.30-5.90); RDW 17.7 % (11.5-15.5); WBC 6.1 k/uL (3.8-10.6)
[2018-03-21 10:27] LABS: Albumin 3.6 g/dL (3.5-5.0); Anion Gap 9 mmol/L; Blood Urea Nitrogen 9 mg/dL (9-20); Calcium 9.4 mg/dL (8.4-10.2); Carbon Dioxide 24 mmol/L (22-30); Chloride 106 mmol/L (98-107); Glucose 95 mg/dL (74-99); Sodium 139 mmol/L (137-145); Total Bilirubin 6.3 mg/dL (0.2-1.3); Total Protein 7.4 g/dL (6.3-8.2)
[2018-03-21 10:31] LABS: ALT 165 U/L (21-72); AST 381 U/L (17-59); Alkaline Phosphatase 144 U/L (38-126)
--- NOTE | 2018-03-21 22:48 | DS ---
DISCHARGE SUMMARY DATE OF SERVICE: 03/21/2018. FINAL DIAGNOSES: 1. Acute alcohol intoxication. 2. Acute alcohol withdrawal and acute delirium tremens. 3. Acute alcoholic hepatitis. 4. Major depression. 5. Hypertension. 6. History of nicotine dependence. 7. Increased AST, ALT, total bilirubin. 8. Increased MCV. 9. History of pneumonia. 10.History of hepatitis C. 11.History of IV drug abuse. 12.Anxiety and depression. DISCHARGE CONDITION: The patient is being discharged in stable condition with guarded prognosis. HISTORY OF PRESENT ILLNESS: This 32-year-old gentleman admitted with acute alcohol intoxication and multiple medical problems, was treated symptomatically and improved significantly. The patient is stable at this time. The patient is keen on going home. Alcohol cessation was advised. The bilirubin is showing a diminishing trend. Hepatitis C was reactive. PHYSICAL EXAM: On exam, vitals are stable. Cardiovascular, S1, S2. Abdomen soft. Nervous system, no focal deficits. No organomegaly. DISCHARGE INSTRUCTIONS: 1. Cardiac diet. 2. Activity limited. FOLLOWUP: Follow up with Dr. Hernández in 2 to 3 days. MEDICATIONS: 1. Clonidine 0.1 t.i.d. 2. Habitrol 21 daily. 3. Ativan 0.1 t.i.d. p.r.n. MMODL / IJN: [id number] /
--- NOTE | 2018-03-22 03:02 | P.CONS ---
History of Present Illness - Reason for Consult Consult date: 03/20/18 Alcohol abuse, hepatitis Requesting physician: Vic Montiel - Chief Complaint Alcohol abuse, withdrawal - History of Present Illness 32-year-old male with a history of alcohol abuse presented to the hospital secondary to his alcohol abuse/withdrawal, nausea and abdominal pain. The patient reports a six-year history of every day alcohol abuse. The patient drinks on a daily basis presents with evidence of abdominal pain and nausea. On presentation the patient had elevation of his liver enzymes with a total bilirubin of 6.2, alkaline phosphatase 201, AST 736 and ALT 207. The patient also had CT imaging which showed hepatic steatosis and a prominent spleen with a possible thickened terminal ileum. The patient had a normal CBC. The patient in addition to suffering from alcohol abuse also reports anxiety and depression as well as hypertension and a history of hepatitis C. No change in bowel habits , fevers chills or GI bleeding reported Review of Systems Constitutional: Denies any fatigue, change in weight Eyes: Denies any change in vision, pain denies Nose: Denies any congestion, rhinorrhea Ears: Denies any change in hearing, new onset tinnitus Lungs: Denies any wheezing, shortness of breath, cough, or hemoptysis Cardiac: Denies any pain in chest, shortness of breath, lower extremity swelling Abdomen: As per history of present illness Skin: Denies any new rashes or pruritus Urine: Denies any dysuria or hematuria Neuro: Denies any change in mental status, new focal deficits Past Medical History Past Medical History: Hypertension, Liver Disease, Pneumonia Additional Past Medical History / Comment(s): ETOH abuse, alcoholic hepatitis, serology lab +for hepatitis C but pt unaware, B12 deficiency, hx of IVDA- heroin but none for almost 3 yrs, History of Any Multi-Drug Resistant Organisms: None Reported Past Surgical History: No Surgical Hx Reported Past Anesthesia/Blood Transfusion Reactions: No Reported Reaction Smoking Status: Current every day smoker - Past Family History Father Family Medical History: No Reported History Additional Family Medical History / Comment(s): Father is a heroin addict now on methadone. Mother Family Medical History: Hypertension Medications and Allergies Home Medications Medication Instructions Recorded Confirmed Type Nicotine 21Mg/24Hr Patch [Habitrol] 1 patch TRANSDERM DAILY #0 patch 03/21/18 Rx cloNIDine HCL [Catapres] 0.1 mg PO TID #90 tab 03/21/18 Rx Allergies Allergy/AdvReac Type Severity Reaction Status Date / Time No Known Allergies Allergy Verified 03/17/18 12:51 Physical Exam Vitals: Vital Signs Temp Pulse Resp BP Pulse Ox 03/20/18 14:47 99.0 F 78 16 143/83 96 03/20/18 08:00 18 03/20/18 07:25 97.9 F 110 H 16 148/111 95 03/20/18 00:00 98.7 F 101 H 20 149/97 95 Intake and Output 03/20/18 03/20/18 03/21/18 14:59 22:59 06:59 Other: Voiding Method Toilet Urinal # Voids 2 1 Constitutional: Lying in bed in no apparent distress Head: normocephalic/atraumatic Eyes: Icterus, no injection Mouth: Moist mucous membranes Nose: No discharge noted Neck: Trachea midline Lungs: Normal air entry in all lung caballero, no wheezing appreciated Abdomen: Soft, nontender, nondistended, normal bowel sounds. No guarding or rigidity Skin: No rashes, mild jaundice Neuro: Awake alert and oriented 3, no focal deficits, some tremulousness with no asterixis Results CBC & Chem 7: 03/21/18 09:35 03/21/18 09:35 Labs: Abnormal Lab Results - Last 24 Hours (Table) 03/20/18 03/20/18 03/20/18 Range/Units 08:25 08:25 08:25 RBC 3.91 L (4.30-5.90) m/uL Hgb 12.9 L (13.0-17.5) gm/dL MCV 102.9 H (80.0-100.0) fL RDW 17.0 H (11.5-15.5) % Plt Count 146 L (150-450) k/uL INR 1.2 H (<1.2) BUN 6 L (9-20) mg/dL Glucose 110 H (74-99) mg/dL Total Bilirubin 7.0 H (0.2-1.3) mg/dL AST 569 H (17-59) U/L ALT 196 H (21-72) U/L Alkaline Phosphatase 180 H (38-126) U/L Hep C IgG Ab (Non-Reactive) 10/20/18 Range/Units 12:26 RBC (4.30-5.90) m/uL Hgb (13.0-17.5) gm/dL MCV (80.0-100.0) fL RDW (11.5-15.5) % Plt Count (150-450) k/uL INR (<1.2) BUN (9-20) mg/dL Glucose (74-99) mg/dL Total Bilirubin (0.2-1.3) mg/dL AST (17-59) U/L ALT (21-72) U/L Alkaline Phosphatase (38-126) U/L Hep C IgG Ab Reactive H (Non-Reactive) CT scan - abdomen: report reviewed (CT scan of the abdomen showing hepatic steatosis, prominent spleen with possible thickening of the terminal ileum) Assessment and Plan (1) Alcoholic hepatitis Narrative/Plan: The patient is in every day alcohol user for the past 6 years and presents with complaints of abdominal pain and nausea. The patient was found to have liver serology suggestive of acute alcohol hepatitis with a total bilirubin 6.2, alkaline phosphatase 201, AST 736, and ALT 207 on presentation. The patient did have improvement in his AST and ALT with his total bilirubin remaining elevated during his stay. Findings are very much in support of alcoholic hepatitis. Patient's INR remains stable and there is no evidence of encephalopathy although the patient did have tremulousness suggestive of alcohol withdrawal for which he was treated. Status: Acute Code(s): K70.10 - ALCOHOLIC HEPATITIS WITHOUT ASCITES SNOMED Code(s): 657934951 (2) Abdominal pain Narrative/Plan: Secondary to above. Status: Acute Code(s): R10.9 - UNSPECIFIED ABDOMINAL PAIN SNOMED Code(s): 35856481 (3) Alcohol withdrawal Narrative/Plan: Patient treated with [facility] protocol for alcohol withdrawal. Status: Acute Code(s): F10.239 - ALCOHOL DEPENDENCE WITH WITHDRAWAL, UNSPECIFIED SNOMED Code(s): 102000351 (4) Hyperbilirubinemia Narrative/Plan: Secondary to above. Status: Acute Code(s): E80.6 - OTHER DISORDERS OF BILIRUBIN METABOLISM SNOMED Code(s): 58678022 Plan: Supportive care Okay for diet Monitor LFTs Alcohol cessation [facility] protocol for withdrawal Monitor for signs of alcohol decompensation such as increasing INR and encephalopathy Thank you for allowing us to participate in the care of this patient, we will follow
[2018-03-22 14:42] LABS: HCV Quant Log <1.08 (<1.08); HCV Quantitative Result <12 IU/mL (<12)
== END 2018-03-21 15:11 | disposition home or self-care (01) | DRG 897 ==
LOC: EC 12:05 → 1SOBS 13:15 → OBSVTOIN 03-19 15:39 → 4MS4W 03-19 23:33
PROVIDERS: ADMIT Hospitalist; ATTEND Hospitalist
DX: F10.221 Alcohol dependence with intoxication delirium (principal); F10.231 Alcohol dependence with withdrawal delirium; T51.0X1A Toxic effect of ethanol, accidental (unintentional), initial encounter; B19.20 Unspecified viral hepatitis C without hepatic coma; F17.200 Nicotine dependence, unspecified, uncomplicated; F32.9 Major depressive disorder, single episode, unspecified; F41.9 Anxiety disorder, unspecified; I10 Essential (primary) hypertension; K70.10 Alcoholic hepatitis without ascites; K76.0 Fatty (change of) liver, not elsewhere classified; E53.8 Deficiency of other specified B group vitamins; Z87.01 Personal history of pneumonia (recurrent); Z71.6 Tobacco abuse counseling; Z82.49 Family history of ischemic heart disease and other diseases of the circulatory system
CPT/HCPCS: 36415; 74177; 80053; 80074; 81001; 82075; 82150; 83690; 83735; 85025; 85610; 87522; 96365; 99284

== ENCOUNTER 2018-07-24 10:04 | Emergency (ER) | payer OTHER ==
[2018-07-24 10:14] VITALS: BP 141/85; PULSE 118; RESP 18; TEMP 98.3
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
[2018-07-24 11:51] LABS: Amphetamine Screen,Urine Detected (NotDetected); Barbiturate Screen,Urine Not Detected (NotDetected); Benzodiazepines Screen,Urine Detected (NotDetected); Cocaine Screen,Urine Not Detected (NotDetected); Methadone Screen, Urine Detected (NotDetected); Opiate Screen,Urine Not Detected (NotDetected); Oxycodone Screen, Urine Not Detected (NotDetected); Phencyclidine Screen,Urine Not Detected (NotDetected); Tricyclic Antidepressant,Urine Not Detected (NotDetected); Urn Cannabinoid Scrn Not Detected (NotDetected)
== END 2018-07-24 14:58 | disposition home or self-care (01) ==
LOC: EC 10:04
DX: F29 Unspecified psychosis not due to a substance or known physiological condition (principal); F19.10 Other psychoactive substance abuse, uncomplicated; R00.0 Tachycardia, unspecified; I10 Essential (primary) hypertension; F41.9 Anxiety disorder, unspecified; F17.200 Nicotine dependence, unspecified, uncomplicated; Z79.899 Other long term (current) drug therapy
CPT/HCPCS: 80306; 82075; 99285

== ENCOUNTER 2018-07-24 20:53 | Emergency (ER) | payer OTHER ==
[2018-07-24 21:06] VITALS: BP 156/106; RESP 16; TEMP 98.3
[2018-07-24] MEDS ORDERED: SODIUM CHLORIDE 0.9% 1,000 ML IV ONE (21:22)
[2018-07-24] MEDS ORDERED: DIPH,PERTUS(ACELL)TETVAC-LF 0.5 ML VIAL IM ONE (21:23)
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
[2018-07-24 22:29] VITALS: PULSE 145
== END 2018-07-24 22:25 | disposition home or self-care (01) ==
LOC: EC 20:53
DX: F29 Unspecified psychosis not due to a substance or known physiological condition (principal); F19.10 Other psychoactive substance abuse, uncomplicated; I10 Essential (primary) hypertension; F32.9 Major depressive disorder, single episode, unspecified; F41.9 Anxiety disorder, unspecified; F17.200 Nicotine dependence, unspecified, uncomplicated; Z79.899 Other long term (current) drug therapy; Z53.29 Procedure and treatment not carried out because of patient's decision for other reasons
CPT/HCPCS: 82075; 99285

== ENCOUNTER 2019-01-25 00:29 | Observation (INO) | payer OTHER ==
[2019-01-25] MEDS ORDERED: MAG HYDROX/AL HYDROX/SIMETH 30 ML, HYOSCYAMINE ELIXIR 10 ML, CIMETIDINE HCL 300 MG PO STA ×3 (00:57)
[2019-01-25] MEDS ORDERED: SODIUM CHLORIDE 0.9% 1,000 ML IV STA (00:57)
--- NOTE | 2019-01-25 01:00 | ED ---
Chest Pain HPI - General Chief Complaint: Chest Pain Stated Complaint: Chest pain Time Seen by Provider: 01/25/19 00:34 Source: patient, EMS Mode of arrival: EMS Limitations: no limitations - History of Present Illness MD Complaint: chest pain Onset/Timin -: days(s) Onset: during rest Pain Location: substernal Pain Radiation: none Severity: severe Quality: aching Consistency: constant Improves With: nothing Worsens With: nothing Anginal Symptoms: nausea, vomiting Other Symptoms: acid taste in mouth Treatments Prior to Arrival: none - Related Data Home Medications Medication Instructions Recorded Confirmed Dextroamphetamine/Amphetamine 30 mg PO BID@0700,1200 07/24/18 01/25/19 [Adderall] Metoprolol Tartrate [Lopressor] 50 mg PO BID 07/24/18 01/25/19 Allergies Allergy/AdvReac Type Severity Reaction Status Date / Time No Known Allergies Allergy Verified 01/25/19 06:44 Review of Systems ROS Statement: Those systems with pertinent positive or pertinent negative responses have been documented in the HPI. ROS Other: All systems not noted in ROS Statement are negative. Constitutional: Denies: fever, chills Respiratory: Denies: cough, dyspnea Cardiovascular: Reports: as per HPI, chest pain. Denies: palpitations, edema, syncope Gastrointestinal: Reports: nausea, vomiting. Denies: abdominal pain, diarrhea, constipation Genitourinary: Denies: dysuria, hematuria Musculoskeletal: Denies: back pain Skin: Denies: rash Neurological: Denies: headache, weakness, numbness EKG Findings - EKG Results: EKG: interpreted by MILKA BELTRE, sinus rhythm (Rate 78 bpm), normal axis, normal QRS, normal ST/T, no acute changes - SC, Pacemaker, Normal: Normal tracing: normal tracing 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, History of Any Multi-Drug Resistant Organisms: None Reported Past Surgical History: No Surgical Hx Reported Past Anesthesia/Blood Transfusion Reactions: No Reported Reaction Past Psychological History: Anxiety, Depression Smoking Status: Current every day smoker Past Alcohol Use History: Abuse, Daily Past Drug Use History: None Reported - Past Family History Father Family Medical History: No Reported History Additional Family Medical History / Comment(s): Father is a heroin addict now on methadone. Mother Family Medical History: Hypertension General Exam Limitations: no limitations General appearance: alert, in no apparent distress Head exam: Present: atraumatic, normocephalic Eye exam: Present: normal appearance. Absent: scleral icterus, conjunctival injection ENT exam: Present: normal oropharynx, mucous membranes dry Neck exam: Present: normal inspection, full ROM Respiratory exam: Present: normal lung sounds bilaterally, chest wall tenderness. Absent: respiratory distress, wheezes, rales, rhonchi, stridor, accessory muscle use, decreased breath sounds, prolonged expiratory Cardiovascular Exam: Present: regular rate, normal rhythm, normal heart sounds. Absent: systolic murmur, diastolic murmur, rubs, gallop GI/Abdominal exam: Present: soft, tenderness. Absent: distended, guarding, rebound, rigid, mass Extremities exam: Present: normal inspection, normal capillary refill. Absent: pedal edema, calf tenderness Back exam: Present: normal inspection. Absent: CVA tenderness (R), CVA tenderness (L) Neurological exam: Present: alert Skin exam: Present: warm, dry, intact, normal color. Absent: rash Course Vital Signs 01/25/19 01/25/19 01/25/19 00:42 02:45 03:28 Temperature 98.7 F 98.1 F Pulse Rate 80 77 86 Respiratory 18 18 18 Rate Blood Pressure 114/76 113/72 120/78 O2 Sat by Pulse 100 98 98 Oximetry 01/25/19 01/25/19 04:28 06:25 Temperature Pulse Rate 75 98 Respiratory 18 18 Rate Blood Pressure 104/62 100/50 O2 Sat by Pulse 97 98 Oximetry Chest Pain [facility] Patient's 33-year-old man with atypical chest pain, sounding much more like esophagitis and possible component of pancreatitis. Was pending discharge when he began to manifest signs and symptoms of withdrawal. Case is discussed with Dr. Reynolds who will admit the patient for Ativan protocol to prevent florid delirium tremens. Disposition Clinical Impression: Pancreatitis, Chest pain, Alcohol withdrawal Disposition: ADMITTED IP TO THIS HOSP Condition: Fair Is patient prescribed a controlled substance at d/c from ED?: No
[2019-01-25 02:07] LABS: Basophils # (A) 0.1 k/uL (0-0.2); Basophils % (A) 1 %; Eosinophils # (A) 0.1 k/uL (0-0.7); Eosinophils % (A) 2 %; HCT 45.7 % (39.0-53.0); HGB 15.4 gm/dL (13.0-17.5); Lymphocytes # (A) 1.7 k/uL (1.0-4.8); Lymphocytes % (A) 33 %; MCH 33.3 pg (25.0-35.0); MCHC 33.6 g/dL (31.0-37.0); Mean Platelet Volume 6.9; Monocytes # (A) 0.3 k/uL (0-1.0); Monocytes % (A) 6 %; Neutrophils # (A) 2.9 k/uL (1.3-7.7); Neutrophils % (A) 56 %; Platelet Count 147 k/uL (150-450); RBC 4.62 m/uL (4.30-5.90); RDW 15.2 % (11.5-15.5); WBC 5.2 k/uL (3.8-10.6)
[2019-01-25 02:17] LABS: ALT 87 U/L (21-72); AST 412 U/L (17-59); African American GFR (CKD) >90 (>60 ml/min/1.73 sqM); Albumin 3.9 g/dL (3.5-5.0); Alkaline Phosphatase 123 U/L (38-126); Amylase 64 U/L (30-110); Anion Gap 10 mmol/L; Blood Urea Nitrogen 5 mg/dL (9-20); Calcium 8.2 mg/dL (8.4-10.2); Carbon Dioxide 28 mmol/L (22-30); Chloride 104 mmol/L (98-107); Glucose 128 mg/dL (74-99); Magnesium 2.1 mg/dL (1.6-2.3); Potassium 3.6 mmol/L (3.5-5.1); Sodium 142 mmol/L (137-145); Total Bilirubin 1.4 mg/dL (0.2-1.3); Total Protein 7.5 g/dL (6.3-8.2)
--- NOTE | 2019-01-25 02:34 | XR ---
EXAM: XR Chest, 1 View CLINICAL HISTORY: ITS.REASON XR Reason: chest pain TECHNIQUE: Frontal view of the chest. COMPARISON: 10/14/17 FINDINGS: Lungs: No consolidation or mass. Pleural space: No acute findings Heart: No cardiomegaly. Mediastinum: Unremarkable. Bones/joints: No acute findings. IMPRESSION: No acute cardiopulmonary process.
[2019-01-25] MEDS ORDERED: chlordiazePOXIDE 25 MG CAP PO STA (03:25)
[2019-01-25] MEDS ORDERED: LORazepam 2 MG/ML INJ IV PRN (06:09)
[2019-01-25] MEDS ORDERED: THIAMINE 100 MG/ML 2 ML VIAL IM STA (06:09)
[2019-01-25] MEDS ORDERED: ONDANSETRON 4 MG/2 ML VIAL IVP PRN (06:10)
[2019-01-25] MEDS ORDERED: ACETAMINOPHEN TAB 325 MG TAB PO PRN (06:10)
[2019-01-25] MEDS ORDERED: NALOXONE 0.4 MG/ML 1 ML VIAL IV PRN (06:10)
[2019-01-25] MEDS: SODIUM CHLORIDE 0.9% 1,000 ML IV SCH ×3 (06:23→23:28)
--- NOTE | 2019-01-25 07:22 | P.HPIM ---
History of Present Illness H&P Date: 01/25/19 Chief Complaint: Alcoholic withdrawal. This is a 33-year-old white male with history of ADD who states he went on a binge alcoholic episode with his father and had multiple shots. The patient is now coming in with fairly high alcohol level and is going through some delirium tremens. There is history of alcoholism stated in the past. There is history also of alcohol pancreatitis in the past. Review of Systems Constitutional: Denies chills, Denies fever Eyes: denies blurred vision, denies pain Ears, nose, mouth and throat: Denies headache, Denies sore throat Cardiovascular: Denies chest pain, Denies shortness of breath Respiratory: Denies cough Gastrointestinal: Denies abdominal pain, Denies diarrhea, Denies nausea, Denies vomiting Musculoskeletal: Denies myalgias Integumentary: Denies pruritus, Denies rash Neurological: Reports tremors Psychiatric: Denies anxiety, Denies depression 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, History of Any Multi-Drug Resistant Organisms: None Reported Past Surgical History: No Surgical Hx Reported Past Anesthesia/Blood Transfusion Reactions: No Reported Reaction Past Psychological History: Anxiety, Depression Smoking Status: Current every day smoker Past Alcohol Use History: Abuse, Daily Past Drug Use History: None Reported - Past Family History Father Family Medical History: No Reported History Additional Family Medical History / Comment(s): Father is a heroin addict now on methadone. Mother Family Medical History: Hypertension Medications and Allergies Home Medications Medication Instructions Recorded Confirmed Type Dextroamphetamine/Amphetamine 30 mg PO BID@0700,1200 07/24/18 01/25/19 History [Adderall] Metoprolol Tartrate [Lopressor] 50 mg PO BID 07/24/18 01/25/19 History Allergies Allergy/AdvReac Type Severity Reaction Status Date / Time No Known Allergies Allergy Verified 01/25/19 06:44 Physical Exam Vitals: Vital Signs Temp Pulse Resp BP Pulse Ox 01/25/19 06:25 98 18 100/50 98 01/25/19 04:28 75 18 104/62 97 01/25/19 03:28 98.1 F 86 18 120/78 98 01/25/19 02:45 77 18 113/72 98 01/25/19 00:42 98.7 F 80 18 114/76 100 Intake and Output 01/24/19 01/25/19 01/25/19 22:59 06:59 14:59 Other: Weight 91.172 kg - Constitutional General appearance: no acute distress - EENT Eyes: EOMI - Neck Neck: no lymphadenopathy - Respiratory Respiratory: bilateral: CTA - Cardiovascular Rhythm: regular Heart sounds: normal: S1, S2 Abnormal Heart Sounds: no S3 Gallop, no S4 Gallop - Gastrointestinal General gastrointestinal: soft, no tenderness - Psychiatric Psychiatric: A&O x's 3, appropriate affect, intact judgment & insight Results CBC & Chem 7: 01/25/19 01:57 01/25/19 01:57 Labs: Abnormal Lab Results - Last 24 Hours (Table) 01/25/19 01/25/19 01/25/19 Range/Units 01:57 01:57 01:57 Plt Count 147 L (150-450) k/uL D-Dimer 0.66 H (<0.60) mg/L FEU BUN 5 L (9-20) mg/dL Glucose 128 H (74-99) mg/dL Calcium 8.2 L (8.4-10.2) mg/dL Total Bilirubin 1.4 H (0.2-1.3) mg/dL AST 412 H (17-59) U/L ALT 87 H (21-72) U/L Lipase 459 H (23-300) U/L Serum Alcohol mg/dL 01/25/19 Range/Units 04:00 Plt Count (150-450) k/uL D-Dimer (<0.60) mg/L FEU BUN (9-20) mg/dL Glucose (74-99) mg/dL Calcium (8.4-10.2) mg/dL Total Bilirubin (0.2-1.3) mg/dL AST (17-59) U/L ALT (21-72) U/L Lipase (23-300) U/L Serum Alcohol 341 H* mg/dL Assessment and Plan (1) Delirium, withdrawal, alcoholic Current Visit: Yes Status: Acute Code(s): F10.231 - ALCOHOL DEPENDENCE WITH WITHDRAWAL DELIRIUM SNOMED Code(s): 1658797 (2) Alcohol abuse Current Visit: Yes Status: Acute Code(s): F10.10 - ALCOHOL ABUSE, UN COMPLICATED SNOMED Code(s): 80002321 (3) ADD (attention deficit disorder) Current Visit: Yes Status: Acute Code(s): F98.8 - OTH BEHAV/EMOTN DISORD W ONSET USLY OCCUR IN CHLDHD AND ADOL SNOMED Code(s): 34185697 Plan: Protocol for alcohol withdrawal. Rehydration Counseling on alcoholism given. Prognosis is guarded. Anticipate discharge in next 24-40 hours as his blood alcohol level decreases. Time with Patient: Greater than 30
[2019-01-25] MEDS: LORazepam 2 MG/ML INJ IV PRN ×6 (08:22→23:46)
[2019-01-25 11:48] VITALS: BMI 33.0
[2019-01-25] MEDS ORDERED: MULTIVITAMINS, THERA 1 EACH TAB PO SCH (14:00)
--- NOTE | 2019-01-25 14:09 | P.CN ---
Psychiatric Consult - . Consult date: 01/25/19 Consult:: 01/25/19 13:53 IDENTIFYING DATA: This patient is a 33-year-old male who currently lives with his grandparents in the house, single, has one daughter who is 10 years old. HISTORY OF PRESENT ILLNESS: The patient was brought into the hospital for complaints of chest pain nausea vomiting after having a alcohol binge episode at home. Patient was admitted to the floors and put on [facility] for alcohol detox and monitoring for delirium tremens. Patient's blood alcohol level on admission was 341 and had a increase in his liver function tests. Psychiatry was referred for alcohol use treatment. Patient was seen at the bedside was agreeable to speak to ad writer. Patient was evasive, guarded and minimized his substance use problem. He states that he was only "partying with my dad and brother" and also stated that "I don't have a problem". He states that he was feeling nauseous and sick after partying as he was celebrating coming back up to [place] from [place] for the past 2 months. Patient denied having this problem related to alcohol in the past and denies any previous admissions although as per EMR he's been hospitalized due to alcohol withdrawal and alcohol related complications several times. Patient claims that he can stop drinking alcohol whenever he wants to and states that he wants to go back to work. He claims that on the night that he was drinking she drank approximately 20 shots of vodka. He states that he usually drinks approximately 1-2 drinks a day after work. Patient claims that his mood is "fine" and claims that he has some anxiety related to alcohol withdrawal. He also states that he has been to rehab 5 times in the past and the longest he's ever been sober was 3/2 years ago for 4 months. Patient claims that he has been to meetings in the past however does not like them. He admits currently to having tremors and sweats along with anxiety but denies any seizures or any visual hallucinations at this time. He states that he had 2 DUIs in the past approximately 7 years ago and spent time in correction. At this time patient denies any suicidal or homical ideations, intent or plan. Patient denies any auditory, visual hallucinations and denies any paranoia or delusions. He currently admits to smoking for 5 cigarettes a day and states to be 3 years sober from heroin use claiming that "I quit cold turkey". PAST PSYCHIATRIC HISTORY: Patient denies any previous psychiatric hospitalizations. He states that he has a history of ADHD which would that was diagnosed when he was a child and has been put on Adderall. He denies any previous suicide attempts in the past. PAST MEDICAL HISTORY: Recently diagnosed with hepatitis C. History of alcohol hepatitis and history of intravenous drug abuse. ALLERGIES: No known drug allergies. CHEMICAL DEPENDENCY HISTORY: As per HPI. FAMILY PSYCHIATRIC/SUBSTANCE USE HISTORY: Claims his father abuses heroin. LEGAL HISTORY: Admits to 2 DUIs in the past and has served time in correction. SOCIAL HISTORY: States that he grew up in [place] and completed high school and attended some college. 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 He currently lives with his grandparents in a house, is single and has 1 daughter who is 10 years old. MENTAL STATUS EXAM: General Appearance: Patient appears to be stated age is alert, pleasant, and cooperative. Patient is overweight, has poor hygiene and grooming. Behavior: Patient is sitting on the side of the bed, appears to be trembling at times in his arms Speech: Patient's speech is fluent and nonpressured. Mood/Affect: Patient reports their mood is "okay", affect is congruent Suicidality/Homicidality: Patient denies having any suicidal or homicidal ideation intent or plan. Perceptions: Patient denies any auditory or visual hallucinations. Though content/process: There is no evidence of any delusional thought content and thought process is linear and goal-directed. He minimizes frequently his substance use and is guarded and evasive. Memory and concentration: AOX3, grossly intact for the purposes of this session. Can spell "WORLD" backwards Judgment and insight: Poor, superficial IMPRESSIONS: Alcohol use disorder, moderate-severe currently in withdrawal History of opioid use disorder currently in remission. Nicotine dependence PLAN: -At this time patient patient does NOT meet criteria for inpatient psychiatric admission. -Would recommend the following medication changes/additions: After discussion of medication options, patient agreed upon starting acamprosate 333 mg 3 times a day with an increase to the maintenance dose of 666 mg 3 times a day for alcohol use cravings. At this time patient is not a candidate for naltrexone or Antabuse due to his significant liver injury. -Thiamine and multivitamin for supplementation. -Continue with CIWA and alcohol withdrawal protocols along with close monitoring. -Discussed with patient at great length about different rehab options and meetings he can do in the community however patient was reluctant and declined to go back to rehab or attend meetings. Patient would like to "quit cold turkey" and has superficial insight into his condition and minimizes the extent of his problem. -Psychiatry will sign off at this point Thank you for the consult
[2019-01-25] MEDS: THIAMINE 100 MG TAB PO SCH ×2 (16:49→16:50)
[2019-01-25] MEDS: ACAMPROSATE CALCIUM 333 MG TABLET.DR PO SCH ×2 (16:49→20:57)
[2019-01-25] MEDS ORDERED: NICOTINE 14MG/24HR PATCH TRANSDERM SCH (17:15)
[2019-01-25] MEDS ORDERED: METOPROLOL TARTRATE 25 MG TAB PO SCH (21:00)
[2019-01-25 23:24] VITALS: BP 158/108; PULSE 123; RESP 19; TEMP 98.8
--- NOTE | 2019-01-26 08:05 | P.DS ---
Providers Date of admission: 01/25/19 06:13 Attending physician: Mars Reynolds Consults: 01/25/19 06:11 Consult Physician Routine Consulting Provider: Naeem Lazcano Consult Reason/Comments: alcohol addiction Do you want consulting provider notified?: Already Contacted Primary care physician: Mars Reynolds - Discharge Diagnosis(es) (1) Delirium, withdrawal, alcoholic Status: Acute (2) Alcohol abuse Status: Acute (3) ADD (attention deficit disorder) Status: Acute Hospital Course: This discharge summary 33-year-old white male essentially admitted for alcoholic withdrawal. The patient was doing well but suddenly in the middle night stated that he had a phone call that his daughter was ill and left AGAINST MEDICAL ADVICE. I forewarned the patient through his nurse that he most likely could be discharged from the practice due to the inappropriateness of his behavior. The patient left anyway. Prognosis is guarded secondary to his history of alcohol use. Plan - Discharge Summary Discharge Rx Participant: Yes New Discharge Prescriptions: No Action Metoprolol Tartrate [Lopressor] 50 mg PO BID Dextroamphetamine/Amphetamine [Adderall] 30 mg PO BID@0700,1200 Discharge Medication List Dextroamphetamine/Amphetamine [Adderall] 30 mg PO BID@0700,1200 07/24/18 [History] Metoprolol Tartrate [Lopressor] 50 mg PO BID 07/24/18 [History] Follow up Appointment(s)/Referral(s): Mars Reynolds MD [Primary Care Provider] - 1-2 days Patient Instructions/Handouts: Chest Pain (ED), Pancreatitis (ED) Discharge Disposition: Left Against Medical Advice
[2019-01-26] MEDS ORDERED: ACAMPROSATE CALCIUM 333 MG TABLET.DR PO SCH (09:00)
== END 2019-01-26 02:21 | disposition left against medical advice (07) ==
LOC: EC 00:29 → 4MS4W 06:13 → 4SSUR 10:18
PROVIDERS: ADMIT Family Medicine; ATTEND Family Medicine
DX: F10.231 Alcohol dependence with withdrawal delirium (principal); Z53.21 Procedure and treatment not carried out due to patient leaving prior to being seen by health care provider; Y90.8 Blood alcohol level of 240 mg/100 ml or more; R07.2 Precordial pain; F17.210 Nicotine dependence, cigarettes, uncomplicated; F90.9 Attention-deficit hyperactivity disorder, unspecified type; I10 Essential (primary) hypertension; F32.9 Major depressive disorder, single episode, unspecified; F41.9 Anxiety disorder, unspecified; Z87.19 Personal history of other diseases of the digestive system; Z87.01 Personal history of pneumonia (recurrent); Z86.19 Personal history of other infectious and parasitic diseases; Z79.899 Other long term (current) drug therapy; Z81.3 Family history of other psychoactive substance abuse and dependence; Z82.49 Family history of ischemic heart disease and other diseases of the circulatory system
CPT/HCPCS: 96376 ×2; 96372; 96374; 99285; 36415; 93005; 85379; 80053; 82150; 83690; 83735; 84484; 85025; 80320; 71045; G0378 ×2; S4990; J2060; J3411

== ENCOUNTER 2019-02-10 18:58 | Inpatient (IN) | payer OTHER ==
[2019-02-10] MEDS ORDERED: SODIUM CHLORIDE 0.9% 1,000 ML IV STA (19:14)
[2019-02-10] MEDS ORDERED: METOPROLOL TARTRATE 50 MG TAB PO STA (19:26)
--- NOTE | 2019-02-10 19:26 | ED ---
General Adult HPI - General Chief complaint: Dizziness Stated complaint: Dizzy Time Seen by Provider: 02/10/19 19:05 Source: patient Mode of arrival: ambulatory Limitations: no limitations - History of Present Illness Initial comments: 33-year-old male patient with past medical history significant for hepatitis C, IV drug abuse, and alcohol dependence presents to the emergency department today for evaluation of dizziness and alcohol withdrawal. Patient states that he was a visitor while his father is being evaluated in the emergency department when he is had sudden onset of dizziness. Patient states he is feeling unwell. States he is having some intermittent chest pain with this. States that he has had a lot to drink today but feels he is withdrawing from alcohol. Patient states he drinks on a daily basis. States his been 3 years since he has used heroin. Denies abdominal pain, nausea, or vomiting. States he has a mild headache but denies blurred or double vision. States he is having some tingling to the tips of his fingers and toes on both sides. Patient denies any recent rash, shortness breath, diarrhea, constipation, back pain, dizziness, weakness, hematuria, dysuria, urinary urgency, urinary frequency, headache, visual gibson ges, or any other complaints. - Related Data Home Medications Medication Instructions Recorded Confirmed Dextroamphetamine/Amphetamine 30 mg PO BID 07/24/18 02/10/19 [Adderall] Metoprolol Tartrate [Lopressor] 50 mg PO BID 07/24/18 02/10/19 Carboxymethylcellulose Sodium 1 ml BOTH EYES QAM 02/10/19 02/10/19 [Refresh Tears] Allergies Allergy/AdvReac Type Severity Reaction Status Date / Time No Known Allergies Allergy Verified 02/10/19 19:22 Review of Systems ROS Statement: Those systems with pertinent positive or pertinent negative responses have been documented in the HPI. ROS Other: All systems not noted in ROS Statement are negative. 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, History of Any Multi-Drug Resistant Organisms: None Reported Past Surgical History: No Surgical Hx Reported Past Anesthesia/Blood Transfusion Reactions: No Reported Reaction Past Psychological History: Anxiety, Depression Smoking Status: Current every day smoker Past Alcohol Use History: Abuse, Daily Past Drug Use History: None Reported, Marijuana - Past Family History Father Family Medical History: No Reported History Additional Family Medical History / Comment(s): Father is a heroin addict now on methadone. Mother Family Medical History: Hypertension General Exam Limitations: no limitations General appearance: alert, in no apparent distress, other (Physical well- developed, well-nourished adult male patient in no acute distress. Vital signs upon presentation are temperature 97.8F, pulse 1:30, respirations 20, blood pressure 155/101, pulse ox 99% on room air.) Eye exam: Present: normal appearance, PERRL, EOMI. Absent: scleral icterus, conjunctival injection, nystagmus, periorbital swelling ENT exam: Present: normal exam, normal oropharynx, mucous membranes moist Respiratory exam: Present: normal lung sounds bilaterally. Absent: respiratory distress, wheezes, rales, rhonchi, stridor Cardiovascular Exam: Present: normal rhythm, tachycardia, normal heart sounds. Absent: systolic murmur, diastolic murmur, rubs, gallop, clicks GI/Abdominal exam: Present: soft, normal bowel sounds. Absent: distended, tenderness, guarding, rebound, rigid Neurological exam: Present: alert, oriented X3, CN II-XII intact Psychiatric exam: Present: normal affect, normal mood Skin exam: Present: warm, dry, intact, normal color. Absent: rash Course Vital Signs 02/10/19 18:59 Temperature 97.8 F Pulse Rate 130 H Respiratory 20 Rate Blood Pressure 155/101 O2 Sat by Pulse 99 Oximetry EKG Findings - EKG Comments: EKG Findings:: EKG obtained in 192 shows sinus tachycardia with a ventricular rate of 115, NV interval 136, QRS duration 90, QT 324, QTC 448. No evidence of ST elevation or depression. Medical Decision Making - Medical Decision Making 33-year-old male patient presented to the emergency department today for evaluation of dizziness and alcohol withdrawal. Physical examination is unremarkable. He is neurologically intact no focal deficits. Labs reviewed and did reveal potassium level 390. Alcohol level was 390. EKG was unremarkable. Patient does not have transportation home. He'll be admitted for alcohol intoxication. Patient verbalizes understanding and agrees with this plan. - Lab Data Result diagrams: 02/10/19 19:32 02/10/19 19:32 Lab Results 02/10/19 02/10/19 02/10/19 Range/Units 19:32 19:32 19:32 WBC 6.5 (3.8-10.6) k/uL RBC 4.20 L (4.30-5.90) m/uL Hgb 14.3 (13.0-17.5) gm/dL Hct 43.2 (39.0-53.0) % MCV 103.0 H (80.0-100.0) fL MCH 34.1 (25.0-35.0) pg MCHC 33.1 (31.0-37.0) g/dL RDW 18.1 H (11.5-15.5) % Plt Count 192 (150-450) k/uL Neutrophils % 63 % Lymphocytes % 27 % Monocytes % 6 % Eosinophils % 2 % Basophils % 1 % Neutrophils # 4.1 (1.3-7.7) k/uL Lymphocytes # 1.7 (1.0-4.8) k/uL Monocytes # 0.4 (0-1.0) k/uL Eosinophils # 0.1 (0-0.7) k/uL Basophils # 0.1 (0-0.2) k/uL Anisocytosis Slight Macrocytosis Moderate Sodium 143 (137-145) mmol/L Potassium 3.1 L (3.5-5.1) mmol/L Chloride 100 (98-107) mmol/L Carbon Dioxide 26 (22-30) mmol/L Anion Gap 17 mmol/L BUN 5 L (9-20) mg/dL Creatinine 0.62 L (0.66-1.25) mg/dL Est GFR (CKD-EPI)AfAm >90 (>60 ml/min/1.73 sqM) Est GFR (CKD-EPI)NonAf >90 (>60 ml/min/1.73 sqM) Glucose 164 H (74-99) mg/dL Calcium 8.4 (8.4-10.2) mg/dL Total Bilirubin 2.6 H (0.2-1.3) mg/dL AST 383 H (17-59) U/L ALT 84 H (21-72) U/L Alkaline Phosphatase 184 H (38-126) U/L Troponin I <0.012 (0.000-0.034) ng/mL Total Protein 7.9 (6.3-8.2) g/dL Albumin 4.2 (3.5-5.0) g/dL Serum Alcohol 390 H* mg/dL Disposition Clinical Impression: Alcohol intoxication, Hypokalemia Disposition: ADMITTED IP TO THIS HOSP Condition: Serious Referrals: None,Stated [Primary Care Provider] - 1-2 days Decision to Admit Reason: Admit from EC Decision Date: 02/10/19 Decision Time: 20:34
[2019-02-10 19:56] LABS: ALT 84 U/L (21-72); AST 383 U/L (17-59); African American GFR (CKD) >90 (>60 ml/min/1.73 sqM); Albumin 4.2 g/dL (3.5-5.0); Alkaline Phosphatase 184 U/L (38-126); Anion Gap 17 mmol/L; Blood Urea Nitrogen 5 mg/dL (9-20); Calcium 8.4 mg/dL (8.4-10.2); Carbon Dioxide 26 mmol/L (22-30); Chloride 100 mmol/L (98-107); Glucose 164 mg/dL (74-99); Potassium 3.1 mmol/L (3.5-5.1); Sodium 143 mmol/L (137-145); Total Bilirubin 2.6 mg/dL (0.2-1.3); Total Protein 7.9 g/dL (6.3-8.2)
[2019-02-10 20:10] LABS: Alcohol 390 mg/dL
[2019-02-10 20:20] LABS: Anisocytosis Slight; Basophils # (A) 0.1 k/uL (0-0.2); Basophils % (A) 1 %; Eosinophils # (A) 0.1 k/uL (0-0.7); Eosinophils % (A) 2 %; HCT 43.2 % (39.0-53.0); HGB 14.3 gm/dL (13.0-17.5); Lymphocytes # (A) 1.7 k/uL (1.0-4.8); Lymphocytes % (A) 27 %; MCH 34.1 pg (25.0-35.0); MCHC 33.1 g/dL (31.0-37.0); Macrocytosis Moderate; Mean Platelet Volume 7.5; Monocytes # (A) 0.4 k/uL (0-1.0); Monocytes % (A) 6 %; Neutrophils # (A) 4.1 k/uL (1.3-7.7); Neutrophils % (A) 63 %; Platelet Count 192 k/uL (150-450); RDW 18.1 % (11.5-15.5); WBC 6.5 k/uL (3.8-10.6)
[2019-02-10] MEDS ORDERED: Potassium Replacement Protocol 1 EACH MISC MISCELLANE PRN (20:30)
[2019-02-10] MEDS ORDERED: THIAMINE 100 MG/ML 2 ML VIAL IM STA (20:30)
[2019-02-10] MEDS ORDERED: NALOXONE 0.4 MG/ML 1 ML VIAL IV PRN (20:30)
[2019-02-10] MEDS ORDERED: SODIUM CHLORIDE 0.9% 1,000 ML with MVI, ADULT NO.4 WITH VIT K 10 ML, THIAMINE 100 MG, F... IV ONE ×4 (20:30)
[2019-02-10 20:55] LABS: Amphetamine Screen,Urine Not Detected (NotDetected); Barbiturate Screen,Urine Not Detected (NotDetected); Benzodiazepines Screen,Urine Detected (NotDetected); Cocaine Screen,Urine Not Detected (NotDetected); Methadone Screen, Urine Not Detected (NotDetected); Opiate Screen,Urine Not Detected (NotDetected); Oxycodone Screen, Urine Not Detected (NotDetected); Phencyclidine Screen,Urine Not Detected (NotDetected); Tricyclic Antidepressant,Urine Not Detected (NotDetected); Urn Cannabinoid Scrn Detected (NotDetected)
[2019-02-10] MEDS: ONDANSETRON 4 MG/2 ML VIAL IVP PRN (21:01)
[2019-02-10] MEDS: LORazepam 2 MG/ML INJ IV PRN ×3 (21:02→23:46)
[2019-02-10] MEDS: THIAMINE 100 MG TAB PO SCH (21:30)
[2019-02-10] MEDS: POTASSIUM CHLORIDE ER 20 MEQ TAB.ER PO SCH ×2 (21:57→22:38)
[2019-02-10 22:31] VITALS: BMI 30.7
[2019-02-11] MEDS: LORazepam 2 MG/ML INJ IV PRN ×9 (01:38→17:39)
[2019-02-11] MEDS: ONDANSETRON 4 MG/2 ML VIAL IVP PRN (03:43)
[2019-02-11] MEDS: THIAMINE 100 MG TAB PO SCH ×2 (07:26→17:08)
[2019-02-11] MEDS ORDERED: ACETAMINOPHEN TAB 325 MG TAB PO PRN (08:21)
[2019-02-11] MEDS ORDERED: HYDROcodone/APAP 5-325MG 1 EACH TAB PO PRN (08:21)
--- NOTE | 2019-02-11 08:33 | P.HPIM ---
History of Present Illness H&P Date: 02/11/19 Chief Complaint: Nausea, vomiting, shakiness and confusion 33-year-old male with PMH of hypertension, ADHD, chronic alcohol abuse since the age of 18 presents to the ED for constellation of symptoms. Patient reports daily nausea and NBNB vomiting daily over the past 6 months. States that his frequency of vomiting this based on how much he drinks. Over the last couple of days he has experienced shakiness and increased confusion. Patient reports that he is "tired of it", prompting him to come to the ED. Patient reports his last drink to be yesterday around 7 PM. He drinks 20 shots of hard liquor daily. Patient admits to no seizures in the past. Patient reports going to [facility] 5 times for inpatient treatment. Patient states that he has an appointment on Thursday and is afraid that if he goes home he will continue to drink.Patient currently reports a bitemporal headache. He denies any lower extremity edema. No fever or chills. He denies any chest pain, shortness of breath or palpitations. Patient reports a cough that is productive of clear sputum, associated with a smoker's cough ongoing for the past 2 weeks. He denies any changes in urination or bowel habits. No changes in appetite or weight. Patient reports some dizziness when standing up too quickly. He denies any numbness/weakness/showing of the extremities. In the ED, patient was noted to be tachycardic with a heart rate in the 130s. He had an elevated BP of 155/101. CBC showed macrocytosis with MCV 103. CMP showed potassium of 3.1, glucose of 164, total bilirubin of 2.6, AST of 383, ALTs of 84 and alkaline phosphatase of 184. Troponin was less than 0.012, EKG showing sinus tachycardia. UDS was positive for benzos and for marijuana. Serum alcohol was 390. Patient is admitted for alcohol withdrawal. Review of Systems Pertinent positives and negatives as discussed in HPI, a complete review of systems was performed and all other systems are negative. 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 He does not drive but states he is able to get rides to [place]. Pt works at [employer]. Pt was admitted on 03/15/18 and at that time pt stated he is afraid if he left the hospital that he might drink himself to . When asked at that time if he would do that on purpose, he stated "I am not sure." He was seen by psych. Today, pt states he is not suicidal or homicidal. Smoking Status: Current every day smoker Past Alcohol Use History: Abuse, Daily Additional Past Alcohol Use History / Comment(s): Pt started smoking in 1998 and is a 0.25 ppd smoker. Past Drug Use History: Heroin, IV Drug Use, Marijuana Additional Drug Use History / Comment(s): CLEAN FROM HEROIN FOR ALMOST 3.5 YEARS - Past Family History Father Family Medical History: No Reported History Additional Family Medical History / Comment(s): Father is a heroin addict now on methadone. Mother Family Medical History: Hypertension Medications and Allergies Home Medications Medication Instructions Recorded Confirmed Type Dextroamphetamine/Amphetamine 30 mg PO BID 07/24/18 02/10/19 History [Adderall] Metoprolol Tartrate [Lopressor] 50 mg PO BID 07/24/18 02/10/19 History Carboxymethylcellulose Sodium 1 ml BOTH EYES QAM 02/10/19 02/10/19 History [Refresh Tears] Allergies Allergy/AdvReac Type Severity Reaction Status Date / Time No Known Allergies Allergy Verified 02/10/19 19:22 Physical Exam Vitals: Vital Signs Temp Pulse Pulse Resp BP BP Pulse Ox 02/11/19 04:55 98.2 F 105 H 18 166/97 93 L 02/10/19 21:42 101 H 18 144/103 98 02/10/19 18:59 97.8 F 130 H 20 155/101 99 Intake and Output 02/10/19 02/11/19 02/11/19 22:59 06:59 14:59 Intake Total 800 Balance 800 Intake: Intake, IV Titration 800 Amount Sodium Chloride 0.9% 1, 800 000 ml @ 100 mls/hr IV . Q10H7M ONE with Mvi, Adult No.4 with Vit K 10 ml with Thiamine 100 mg with Folic Acid 1 mg Rx#: [id number] Other: Voiding Method Toilet Urinal Weight 92.986 kg General: [non toxic], [tremulous], [appears at stated age] Derm: [warm], [dry] Head: [atraumatic], [normocephalic], [symmetric] Eyes: [EOMI], [no lid lag], [anicteric sclera] Mouth: [no lip lesion], [mucus membranes moist] Cardiovascular: [S1S2 reg], [tachycardia], [positive posterior tibial pulse bilateral], Lungs: [CTA bilateral], [no rhonchi, no rales] , [no accessory muscle use] Abdominal: [Obese], [ nontender to palpation], [no guarding], [no appreciable organomegaly] Ext: [no gross muscle atrophy], [no edema], [no contractures] Neuro: [ CN II-XI grossly intact], [no focal neuro deficits] Psych: [Alert], [oriented], [appropriate affect] Results CBC & Chem 7: 02/10/19 19:32 02/10/19 19:32 Labs: Abnormal Lab Results - Last 24 Hours (Table) 02/10/19 02/10/19 02/10/19 Range/Units 19:32 19:32 20:23 RBC 4.20 L (4.30-5.90) m/uL MCV 103.0 H (80.0-100.0) fL RDW 18.1 H (11.5-15.5) % Potassium 3.1 L (3.5-5.1) mmol/L BUN 5 L (9-20) mg/dL Creatinine 0.62 L (0.66-1.25) mg/dL Glucose 164 H (74-99) mg/dL Total Bilirubin 2.6 H (0.2-1.3) mg/dL AST 383 H (17-59) U/L ALT 84 H (21-72) U/L Alkaline Phosphatase 184 H (38-126) U/L U Benzodiazepines Scrn Detected H (NotDetected) U Marijuana (THC) Screen Detected H (NotDetected) Serum Alcohol 390 H* mg/dL Thrombosis Risk Factor Assmnt - Choose All That Apply Any of the Below Risk Factors Present?: Yes Each Factor Represents 1 point: Obesity (BMI >25) Other Risk Factors: No Other congenital or acquired thrombophilia - If yes, enter type in comment: No Thrombosis Risk Factor Assessment Total Risk Factor Score: 1 Thrombosis Risk Factor Assessment Level: Low Risk Assessment and Plan Assessment: Assessment and Plan Severe alcohol intoxication with impending alcohol withdrawal Hypokalemia Transaminitis Macrocytosis Hypertensive urgency ADHD Blood alcohol level 390 on admission. Patient is high risk for alcohol withdrawal. States that he is likely to go back to drinking if he is sent home. Plans: Has appointment at [facility] on Thursday. CIWA protocol. Ativan as needed for withdrawal. Zofran as needed for nausea or vomiting. Start thiamine. Start normal saline at 100 mL per hour. Seizure and fall precaution s. Telemetry monitoring. Potassium 3.1. Plans: Replace via protocol. Daily BMP. Total bilirubin 2.6. AST 383. MALT 84. Alkaline phosphatase 184. Likely due to alcohol abuse, probable cirrhosis. Plans: We'll continue to monitor while inpatient. Patient needs to quit drinking. MCV 103. Likely secondary to alcohol abuse. Plans: Follow B12 and folate BP 151/101 on admission. Likely due to alcohol withdrawal. Plans: Start metoprolol 50 mg by mouth twice a day. Monitor vitals, adjust medications as necessary. Plans: Resume home medication of Adderall. DVT prophylaxis: [SCD boots] Discussed with: [Patient] Anticipated discharge: [1-2 days] Anticipated discharge place: [[facility]] A total of [45] minutes was spent on the care of this complex patient more than 50% of the time was spent in counseling and care coordination. Patient is admitted for anticipated less than 2 nights stay due to alcohol withdrawal. Patient names his brother Perico decision maker indicates that he can't make decisions for himself. Patient reiterates wanting to remain full code at this time.
[2019-02-11] MEDS ORDERED: METOPROLOL TARTRATE 50 MG TAB PO SCH (09:00)
[2019-02-11] MEDS ORDERED: NICOTINE 14MG/24HR PATCH TRANSDERM SCH (09:00)
[2019-02-11] MEDS ORDERED: ADDERALL 30MG PO SCH (09:00)
[2019-02-11] MEDS: SODIUM CHLORIDE 0.9% 1,000 ML IV SCH ×2 (10:26→17:07)
[2019-02-11 16:31] VITALS: BP 149/91; PULSE 90; TEMP 98.3
[2019-02-11 17:25] VITALS: RESP 20
== END 2019-02-11 18:20 | disposition left against medical advice (07) | DRG 897 ==
LOC: EC 18:58 → 3NMEDONC 20:37 → OBSVTOIN 02-11 10:26
PROVIDERS: ADMIT Internal Medicine; ATTEND Internal Medicine
DX: F10.229 Alcohol dependence with intoxication, unspecified (principal); F10.239 Alcohol dependence with withdrawal, unspecified; F17.200 Nicotine dependence, unspecified, uncomplicated; E87.6 Hypokalemia; F32.9 Major depressive disorder, single episode, unspecified; F41.9 Anxiety disorder, unspecified; F90.9 Attention-deficit hyperactivity disorder, unspecified type; I10 Essential (primary) hypertension; D75.89 Other specified diseases of blood and blood-forming organs; I16.0 Hypertensive urgency; K70.30 Alcoholic cirrhosis of liver without ascites; Y90.8 Blood alcohol level of 240 mg/100 ml or more; Z79.899 Other long term (current) drug therapy; Z82.49 Family history of ischemic heart disease and other diseases of the circulatory system; Z87.01 Personal history of pneumonia (recurrent)
CPT/HCPCS: 36415; 80053; 80306; 80320; 83735; 84484; 85025; 93005; 96361; 96365; 96372; 96375; 99285

== ENCOUNTER 2019-02-12 02:24 | Inpatient (IN) | payer OTHER ==
[2019-02-12] MEDS ORDERED: ONDANSETRON 4 MG/2 ML VIAL IVP STA (02:43)
[2019-02-12] MEDS ORDERED: THIAMINE 100 MG/ML 2 ML VIAL IM STA (02:43)
[2019-02-12] MEDS ORDERED: FAMOTIDINE 20 MG/2 ML VIAL IV STA (02:43)
[2019-02-12] MEDS ORDERED: SODIUM CHLORIDE 0.9% 1,000 ML IV STA (02:43)
[2019-02-12 03:34] LABS: Anisocytosis Slight; Basophils # (A) 0.2 k/uL (0-0.2); Basophils % (A) 2 %; Eosinophils # (A) 0.2 k/uL (0-0.7); Eosinophils % (A) 2 %; HCT 43.7 % (39.0-53.0); HGB 14.7 gm/dL (13.0-17.5); Lymphocytes # (A) 1.9 k/uL (1.0-4.8); Lymphocytes % (A) 19 %; MCH 35.1 pg (25.0-35.0); MCHC 33.6 g/dL (31.0-37.0); MCV 104.7 fL (80.0-100.0); Macrocytosis Moderate; Mean Platelet Volume 8.1; Monocytes # (A) 0.4 k/uL (0-1.0); Monocytes % (A) 4 %; Neutrophils % (A) 72 %; Platelet Count 163 k/uL (150-450); RBC 4.18 m/uL (4.30-5.90); RDW 18.1 % (11.5-15.5); WBC 9.8 k/uL (3.8-10.6)
[2019-02-12 03:40] LABS: INR 1.2 (<1.2)
[2019-02-12 03:44] LABS: ALT 94 U/L (21-72); AST 462 U/L (17-59); African American GFR (CKD) >90 (>60 ml/min/1.73 sqM); Albumin 4.4 g/dL (3.5-5.0); Alkaline Phosphatase 163 U/L (38-126); Anion Gap 17 mmol/L; Blood Urea Nitrogen 5 mg/dL (9-20); Calcium 9.5 mg/dL (8.4-10.2); Carbon Dioxide 23 mmol/L (22-30); Chloride 100 mmol/L (98-107); Glucose 111 mg/dL (74-99); Magnesium 1.6 mg/dL (1.6-2.3); Potassium 3.7 mmol/L (3.5-5.1); Sodium 140 mmol/L (137-145); Total Bilirubin 5.3 mg/dL (0.2-1.3); Total Protein 8.4 g/dL (6.3-8.2)
[2019-02-12 03:46] LABS: Alcohol 158 mg/dL
--- NOTE | 2019-02-12 03:58 | ED ---
Alcohol HPI - General Chief Complaint: Alcohol Stated Complaint: anxiety Time Seen by Provider: 02/12/19 02:42 Source: patient, EMS Mode of arrival: EMS Limitations: no limitations - History of Present Illness Initial Comments: Dex Kowalski is a 33-year-old alcoholic male who returns to the emergency department stay for reevaluation of alcohol dependence, intoxication desire for rehab. Patient was evaluated earlier in the week at which time he had an a lcohol level exceeding 300. Patient was admitted to Hospital that time but left AMA earlier today despite having plan to remain in the hospital for the weekend pending his admission to [facility] on Thursday. Patient admits that after leaving he did drink which he had not planned on doing when he left AMA, patient states he left AMA to visit his daughter but did end up drinking an d realized that if he continues along this path he is going to kill himself. Patient returns the emergency department today requesting reevaluation and admission for alcohol withdrawal. MD Complaint: alcohol intoxication, alcohol dependence, desires rehab - Related Data Home Medications Medication Instructions Recorded Confirmed Dextroamphetamine/Amphetamine 30 mg PO BID 07/24/18 02/10/19 [Adderall] Metoprolol Tartrate [Lopressor] 50 mg PO BID 07/24/18 02/10/19 Carboxymethylcellulose Sodium 1 ml BOTH EYES QAM 02/10/19 02/10/19 [Refresh Tears] Allergies Allergy/AdvReac Type Severity Reaction Status Date / Time No Known Allergies Allergy Verified 02/10/19 19:22 Review of Systems ROS Statement: Those systems with pertinent positive or pertinent negative responses have been documented in the HPI. ROS Other: All systems not noted in ROS Statement are negative. 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 Mother Family Medical History: Hypertension General Exam - General Exam Comments Initial Comments: Physical Exam GENERAL: Obese gentleman, having dry heaves HENT: Normocephalic, Atraumatic. EYES: PERRL, EOMI PULMONARY: Unlabored respirations. No audible rales rhonchi or wheezing was noted. CARDIOVASCULAR: There is a regular rate and rhythm without any murmurs gallops or rubs. ABDOMEN: Soft and nontender with normal bowel sounds. SKIN: Skin is clear with no lesions or rashes and otherwise unremarkable. : Deferred NEUROLOGIC: Patient is alert and oriented x3. Moving all extremities spontaneously MUSCULOSKELETAL: Normal extremities with adequate strength and full range of motion. No lower extremity swelling or edema. No calf tenderness. PSYCHIATRIC: Normal psychiatric evaluation. Limitations: no limitations Course Vital Signs 02/12/19 02/12/19 02/12/19 02:32 05:36 06:19 Temperature 97.8 F Pulse Rate 120 H 120 H 100 Respiratory 18 19 18 Rate Blood Pressure 146/81 145/65 145/65 O2 Sat by Pulse 96 97 96 Oximetry Medical Decision Making - Medical Decision Making Patient was seen and evaluated, history is obtained from patient Repeat labs were ordered IV fluids ordered Patient to be tachycardic and hypertensive likely relating to possible early withdrawal Patient's alcohol level is still greater than 150 however patient continues to be agitated and Ativan was ordered Was reevaluated after Ativan, blood pressure improving, heart rate has improved to low 100s, patient resting comfortably At this time I do feel the patient is very high risk for having acute withdrawal and would benefit from inpatient evaluation and see what protocol with when necessary Ativan. Patient care discussed with Dr. Thorpe who accepts admission - Lab Data Result diagrams: 02/12/19 03:24 02/12/19 03:24 Lab Results 02/12/19 02/12/19 02/12/19 Range/Units 03:24 03:24 03:24 WBC 9.8 (3.8-10.6) k/uL RBC 4.18 L (4.30-5.90) m/uL Hgb 14.7 (13.0-17.5) gm/dL Hct 43.7 (39.0-53.0) % MCV 104.7 H (80.0-100.0) fL MCH 35.1 H (25.0-35.0) pg MCHC 33.6 (31.0-37.0) g/dL RDW 18.1 H (11.5-15.5) % Plt Count 163 (150-450) k/uL Neutrophils % 72 % Lymphocytes % 19 % Monocytes % 4 % Eosinophils % 2 % Basophils % 2 % Neutrophils # 7.0 (1.3-7.7) k/uL Lymphocytes # 1.9 (1.0-4.8) k/uL Monocytes # 0.4 (0-1.0) k/uL Eosinophils # 0.2 (0-0.7) k/uL Basophils # 0.2 (0-0.2) k/uL Anisocytosis Slight Macrocytosis Moderate PT 12.0 (9.0-12.0) sec INR 1.2 H (<1.2) Sodium 140 (137-145) mmol/L Potassium 3.7 (3.5-5.1) mmol/L Chloride 100 (98-107) mmol/L Carbon Dioxide 23 (22-30) mmol/L Anion Gap 17 mmol/L BUN 5 L (9-20) mg/dL Creatinine 0.66 (0.66-1.25) mg/dL Est GFR (CKD-EPI)AfAm >90 (>60 ml/min/1.73 sqM) Est GFR (CKD-EPI)NonAf >90 (>60 ml/min/1.73 sqM) Glucose 111 H (74-99) mg/dL Calcium 9.5 (8.4-10.2) mg/dL Magnesium 1.6 (1.6-2.3) mg/dL Total Bilirubin 5.3 H (0.2-1.3) mg/dL AST 462 H (17-59) U/L ALT 94 H (21-72) U/L Alkaline Phosphatase 163 H (38-126) U/L Total Protein 8.4 H (6.3-8.2) g/dL Albumin 4.4 (3.5-5.0) g/dL Lipase 200 (23-300) U/L Urine Color Urine Appearance (Clear) Urine pH (5.0-8.0) Ur Specific Treichlers (1.001-1.035) Urine Protein (Negative) Urine Glucose (UA) (Negative) Urine Ketones (Negative) Urine Blood (Negative) Urine Nitrite (Negative) Urine Bilirubin (Negative) Urine Urobilinogen (<2.0) mg/dL Ur Leukocyte Esterase (Negative) Urine RBC (0-5) /hpf Urine WBC (0-5) /hpf Urine Mucus (None) /hpf Serum Alcohol 158 mg/dL 02/12/19 Range/Units 04:56 WBC (3.8-10.6) k/uL RBC (4.30-5.90) m/uL Hgb (13.0-17.5) gm/dL Hct (39.0-53.0) % MCV (80.0-100.0) fL MCH (25.0-35.0) pg MCHC (31.0-37.0) g/dL RDW (11.5-15.5) % Plt Count (150-450) k/uL Neutrophils % % Lymphocytes % % Monocytes % % Eosinophils % % Basophils % % Neutrophils # (1.3-7.7) k/uL Lymphocytes # (1.0-4.8) k/uL Monocytes # (0-1.0) k/uL Eosinophils # (0-0.7) k/uL Basophils # (0-0.2) k/uL Anisocytosis Macrocytosis PT (9.0-12.0) sec INR (<1.2) Sodium (137-145) mmol/L Potassium (3.5-5.1) mmol/L Chloride (98-107) mmol/L Carbon Dioxide (22-30) mmol/L Anion Gap mmol/L BUN (9-20) mg/dL Creatinine (0.66-1.25) mg/dL Est GFR (CKD-EPI)AfAm (>60 ml/min/1.73 sqM) Est GFR (CKD-EPI)NonAf (>60 ml/min/1.73 sqM) Glucose (74-99) mg/dL Calcium (8.4-10.2) mg/dL Magnesium (1.6-2.3) mg/dL Total Bilirubin (0.2-1.3) mg/dL AST (17-59) U/L ALT (21-72) U/L Alkaline Phosphatase (38-126) U/L Total Protein (6.3-8.2) g/dL Albumin (3.5-5.0) g/dL Lipase (23-300) U/L Urine Color Dark Brown Urine Appearance Clear (Clear) Urine pH 7.0 (5.0-8.0) Ur Specific Treichlers 1.025 (1.001-1.035) Urine Protein 1+ H (Negative) Urine Glucose (UA) Negative (Negative) Urine Ketones Negative (Negative) Urine Blood Trace H (Negative) Urine Nitrite Negative (Negative) Urine Bilirubin 2+ H (Negative) Urine Urobilinogen 12.0 (<2.0) mg/dL Ur Leukocyte Esterase Negative (Negative) Urine RBC <1 (0-5) /hpf Urine WBC 2 (0-5) /hpf Urine Mucus Occasional H (None) /hpf Serum Alcohol mg/dL Disposition Clinical Impression: Alcohol intoxication, Alcoholic hepatitis, Alcohol abuse, Alcohol withdrawal Disposition: ADMITTED IP TO THIS [facility] Condition: Serious Is patient prescribed a controlled substance at d/c from ED?: No Referrals: None,Stated [Primary Care Provider] - 1-2 days
[2019-02-12 05:06] LABS: Appearance,Urine Clear (Clear); Bilirubin,Urine 2+ (Negative); Blood,Urine Trace (Negative); Color,Urine Dark Brown; Glucose,Urine (UA) Negative (Negative); Ketones,Urine Negative (Negative); Leukocyte Esterase,Urine Negative (Negative); Mucus,Urine Occasional /hpf; Nitrite,Urine Negative (Negative); Protein,Urine 1+ (Negative); RBC,Urine <1 /hpf (0-5); Specific Gravity,Urine 1.025 (1.001-1.035); WBC,Urine 2 /hpf (0-5)
[2019-02-12] MEDS ORDERED: LORazepam 2 MG/ML INJ IV STA (05:17)
[2019-02-12] MEDS ORDERED: SODIUM CHLORIDE 0.9% 1,000 ML IV ONE (06:11)
[2019-02-12] MEDS ORDERED: IBUPROFEN 400 MG TAB PO PRN (06:36)
[2019-02-12] MEDS ORDERED: NALOXONE 0.4 MG/ML 1 ML VIAL IV PRN (06:36)
[2019-02-12] MEDS ORDERED: LORazepam 2 MG/ML INJ IV PRN ×2 (06:37)
[2019-02-12] MEDS: LORazepam 2 MG/ML INJ IV PRN ×4 (07:31→17:11)
--- NOTE | 2019-02-12 08:37 | P.HPIM ---
History of Present Illness H&P Date: 02/12/19 Chief Complaint: Alcohol withdrawal 33-year-old male with PMH of hypertension, ADHD, chronic alcohol abuse since the age of 18 presents to the ED for constellation of symptoms. Patient reports daily nausea and NBNB vomiting daily over the past 6 months. States that his frequency of vomiting this based on how much he drinks. Over the last couple of days he has experienced shakiness and increased confusion. Patient reports that he is "tired of it", prompting him to come to the ED. patient was admitted initially on 02/11/2019 but had signed himself out AGAINST MEDICAL ADVICE later on that evening. Apparently, patient had went to go visit his daughter but ended up drinking about 7 shots. He drinks 20 shots of hard liquor daily. Patient admits to no seizures in the past. Patient reports going to [facility] 5 times for inpatient treatment. Patient states that he has an appointment on Thursday and is afraid that if he goes home he will continue to drink. Patient currently complains of abdominal pain, epigastric. Pain is nonradiating. Pain is not related to meals. Patient states that this pain has been ongoing for the past week or longer. Pain is worsened with vomiting. In the ED, patient was noted to be tachycardic with a heart rate in the 120s. He had an elevated BP of 150/93. CBC showed macrocytosis with MCV 104.7. CMP showed total bilirubin 5.3, AST 462, AST 94, alkaline phosphatase 163. Troponin was less than 0.012, EKG showing sinus tachycardia. Serum alcohol is 158. Patient is admitted for alcohol withdrawal. Review of Systems Pertinent positives and negatives as discussed in HPI, a complete review of systems was performed and all other systems are negative. Past Medical History Past Medical History: Hypertension, Liver Disease, Pneumonia Additional Past Medical History / Comment(s): ETOH abuse, alcoholic hepatitis, 02/05/17 serology lab +for hepatitis C but pt unaware, B12 deficiency, hx of IVDA-heroin but none for almost 3 yrs, History of Any Multi-Drug Resistant Organisms: None Reported Past Surgical History: No Surgical Hx Reported Past Anesthesia/Blood Transfusion Reactions: No Reported Reaction Past Psychological History: Anxiety, Depression Smoking Status: Current every day smoker Past Alcohol Use History: Abuse, Daily Past Drug Use History: Heroin, IV Drug Use, Marijuana - Past Family History Father Family Medical History: No Reported History Additional Family Medical History / Comment(s): Father is a heroin addict now on methadone. Mother Family Medical History: Hypertension Medications and Allergies Home Medications Medication Instructions Recorded Confirmed Type Dextroamphetamine/Amphetamine 30 mg PO BID 07/24/18 02/12/19 History [Adderall] Metoprolol Tartrate [Lopressor] 50 mg PO BID 07/24/18 02/12/19 History Carboxymethylcellulose Sodium 1 ml BOTH EYES QAM 02/10/19 02/12/19 History [Refresh Tears] Allergies Allergy/AdvReac Type Severity Reaction Status Date / Time No Known Allergies Allergy Verified 02/12/19 07:30 Physical Exam Vitals: Vital Signs Temp Pulse Resp BP Pulse Ox 02/12/19 07:35 98.5 F 104 H 20 150/93 97 02/12/19 06:19 100 18 145/65 96 02/12/19 05:36 120 H 19 145/65 97 02/12/19 02:32 97.8 F 120 H 18 146/81 96 Intake and Output 02/11/19 02/12/19 02/12/19 22:59 06:59 14:59 Other: Weight 92.986 kg General: [non toxic], [tremulous], [appears at stated age] Derm: [warm], [dry] Head: [atraumatic], [normocephalic], [symmetric] Eyes: [EOMI], [no lid lag], [anicteric sclera] Mouth: [no lip lesion], [mucus membranes moist] Cardiovascular: [S1S2 reg], [tachycardia], [positive posterior tibial pulse bilateral], Lungs: [CTA bilateral], [no rhonchi, no rales] , [no accessory muscle use] Abdominal: [Obese], [ nontender to palpation], [no guarding], [no appreciable organomegaly] Ext: [no gross muscle atrophy], [no edema], [no contractures] Neuro: [ CN II-XI grossly intact], [no focal neuro deficits] Psych: [Alert], [oriented], [appropriate affect] Results CBC & Chem 7: 02/12/19 03:24 02/12/19 03:24 Labs: Abnormal Lab Results - Last 24 Hours (Table) 02/12/19 02/12/19 02/12/19 Range/Units 03:24 03:24 03:24 RBC 4.18 L (4.30-5.90) m/uL MCV 104.7 H (80.0-100.0) fL MCH 35.1 H (25.0-35.0) pg RDW 18.1 H (11.5-15.5) % INR 1.2 H (<1.2) BUN 5 L (9-20) mg/dL Glucose 111 H (74-99) mg/dL Total Bilirubin 5.3 H (0.2-1.3) mg/dL AST 462 H (17-59) U/L ALT 94 H (21-72) U/L Alkaline Phosphatase 163 H (38-126) U/L Total Protein 8.4 H (6.3-8.2) g/dL Urine Protein (Negative) Urine Blood (Negative) Urine Bilirubin (Negative) Urine Mucus (None) /hpf 02/12/19 Range/Units 04:56 RBC (4.30-5.90) m/uL MCV (80.0-100.0) fL MCH (25.0-35.0) pg RDW (11.5-15.5) % INR (<1.2) BUN (9-20) mg/dL Glucose (74-99) mg/dL Total Bilirubin (0.2-1.3) mg/dL AST (17-59) U/L ALT (21-72) U/L Alkaline Phosphatase (38-126) U/L Total Protein (6.3-8.2) g/dL Urine Protein 1+ H (Negative) Urine Blood Trace H (Negative) Urine Bilirubin 2+ H (Negative) Urine Mucus Occasional H (None) /hpf Assessment and Plan Assessment: Assessment and Plan Severe alcohol intoxication with impending alcohol withdrawal Epigastric pain likely gastritis from alcohol consumption Transaminitis Macrocytosis Hypertension ADHD Blood alcohol level 158 on admission. Patient is high risk for alcohol withdrawal. States that he is likely to go back to drinking if he is sent home. Plans: Has appointment at [facility] on Thursday. CIWA protocol. Ativan as needed for withdrawal. Zofran as needed for nausea or vomiting. Start thiamine. Start normal saline at 125 mL per hour. Seizure and fall precautions. Telemetry monitoring. Amylase and lipase within normal limits. Plans: Start Protonix 40 mg IV daily. Follow liver ultrasound. Total bilirubin 5.3. AST 462. ALT 94. Alkaline phosphatase 163. Likely due to alcohol abuse, probable cirrhosis. Plans: We'll continue to monitor while inpatient. Patient needs to quit drinking. Obtain liver ultrasound. MCV 104.7. Likely secondary to alcohol abuse. Plans: Follow B12 and folate BP 150/93 on admission. Likely due to alcohol withdrawal. Plans: Start me toprolol 50 mg by mouth twice a day. Monitor vitals, adjust medications as necessary. Plans: Not on any home medication currently. DVT prophylaxis: [SCD boots] Discussed with: [Patient] Anticipated discharge: [2 days] Anticipated discharge place: [[facility]] A total of [45] minutes was spent on the care of this complex patient more than 50% of the time was spent in counseling and care coordination. Patient is admitted for anticipated greater than 2 nights stay due to alcohol withdrawal. Patient names his brother Perico decision maker indicates that he can't make decisions for himself. Patient reiterates wanting to remain full code at this time.
[2019-02-12] MEDS ORDERED: PANTOPRAZOLE 40 MG/10 ML VIAL IVP SCH (09:00)
[2019-02-12] MEDS ORDERED: METOPROLOL TARTRATE 50 MG TAB PO SCH (09:00)
--- NOTE | 2019-02-12 10:13 | US ---
EXAMINATION TYPE: US liver DATE OF EXAM: 02/12/2019 COMPARISON: Previous study dated 03/15/2018. CLINICAL HISTORY: Liver enzymes elevated. EXAM MEASUREMENTS: Liver Length: 21.4 cm Gallbladder Wall: 04 cm CBD: 03 cm Right Kidney: 9.5 x 5.4 x 4.3 cm Pancreas: Obscured by bowel gas Liver: Increased attenuation Gallbladder: No stones seen. Limited. Evidence for sonographic Erazo's sign: No CBD: wnl Right Kidney: wnl The pancreas is obscured. The liver is enlarged measuring 21 cm. It is attenuating and may be fatty infiltrated. Limited views of the gallbladder unremarkable. The gallbladder wall is thickened measuring 4 mm. The distal common hepatic duct measures 3 mm. Limited views of the right kidney are unremarkable. IMPRESSION: 1. HEPATOMEGALY AND PROBABLE FATTY INFILTRATION OF THE LIVER. 2. LIMITED VIEWS OF THE GALLBLADDER DEMONSTRATES A THICKENED GALLBLADDER WALL. THE GALLBLADDER HOWEVE R IS NOT DISTENDED.
[2019-02-12] MEDS: SODIUM CHLORIDE 0.9% 1,000 ML IV SCH ×2 (12:23→13:53)
[2019-02-12 12:56] VITALS: BP 153/89; PULSE 125; RESP 17; TEMP 98.2
[2019-02-12] MEDS ORDERED: chlordiazePOXIDE 25 MG CAP PO SCH (16:00)
[2019-02-12] MEDS: THIAMINE 100 MG TAB PO SCH ×2 (17:11→18:11)
[2019-02-13] MEDS ORDERED: PANTOPRAZOLE 40 MG TABLET PO SCH (09:00)
== END 2019-02-12 18:30 | disposition left against medical advice (07) | DRG 894 ==
LOC: EC 02:24 → 3NMEDONC 06:36
PROVIDERS: ADMIT Internal Medicine; ATTEND Internal Medicine
DX: F10.229 Alcohol dependence with intoxication, unspecified (principal); F10.239 Alcohol dependence with withdrawal, unspecified; F17.200 Nicotine dependence, unspecified, uncomplicated; F32.9 Major depressive disorder, single episode, unspecified; F41.9 Anxiety disorder, unspecified; F90.9 Attention-deficit hyperactivity disorder, unspecified type; I10 Essential (primary) hypertension; K70.10 Alcoholic hepatitis without ascites; K70.30 Alcoholic cirrhosis of liver without ascites; Y90.6 Blood alcohol level of 120-199 mg/100 ml; Z79.899 Other long term (current) drug therapy; Z82.49 Family history of ischemic heart disease and other diseases of the circulatory system
CPT/HCPCS: 36415; 76705; 80053; 80320; 81001; 83690; 83735; 85025; 85610; 96361; 96372; 96374; 96375; 96376; 99285

== ENCOUNTER 2019-02-27 02:56 | Inpatient (IN) | payer OTHER ==
[2019-02-27] MEDS ORDERED: SODIUM CHLORIDE 0.9% 500 ML 500 ML IV STA (03:33)
[2019-02-27] MEDS ORDERED: LORazepam 2 MG/ML INJ IV STA (03:34)
--- NOTE | 2019-02-27 03:37 | ED ---
Chest Pain HPI - General Chief Complaint: Chest Pain Stated Complaint: Chest pain Time Seen by Provider: 02/27/19 03:07 Source: EMS Mode of arrival: EMS Limitations: no limitations - History of Present Illness MD Complaint: chest pain Onset/Timin -: hour(s) Onset: during rest Pain Location: right chest Pain Radiation: RUE Severity: moderate Quality: aching Consistency: constant Improves With: nothing Worsens With: nothing Treatments Prior to Arrival: none - Related Data Home Medications Medication Instructions Recorded Confirmed Dextroamphetamine/Amphetamine 30 mg PO BID 07/24/18 02/27/19 [Adderall] Metoprolol Tartrate [Lopressor] 50 mg PO BID 07/24/18 02/27/19 LORazepam [Ativan] 1 mg PO DAILY PRN 02/27/19 02/27/19 Allergies Allergy/AdvReac Type Severity Reaction Status Date / Time No Known Allergies Allergy Verified 02/27/19 07:07 Review of Systems ROS Statement: Those systems with pertinent positive or pertinent negative responses have been documented in the HPI. ROS Other: All systems not noted in ROS Statement are negative. Constitutional: Denies: fever, chills Respiratory: Denies: cough, dyspnea Cardiovascular: Reports: chest pain. Denies: palpitations, orthopnea, edema, syncope Gastrointestinal: Reports: nausea. 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 Mother Family Medical History: Hypertension General Exam Limitations: no limitations General appearance: alert, appears intoxicated Head exam: Present: atraumatic, normocephalic Eye exam: Present: PERRL, EOMI, scleral icterus. Absent: conjunctival injection ENT exam: Present: mucous membranes dry Neck exam: Present: normal inspection, full ROM Respiratory exam: Present: normal lung sounds bilaterally. Absent: respiratory distress, wheezes, rales, rhonchi, stridor Cardiovascular Exam: Present: normal rhythm, tachycardia (Rate is approximately 120 bpm), normal heart sounds. Absent: systolic murmur, diastolic murmur, rubs, gallop GI/Abdominal exam: Present: soft, normal bowel sounds. Absent: distended, tenderness, guarding, rebound, rigid, mass, pulsatile mass, hernia Extremities exam: Present: normal inspection, normal capillary refill. Absent: pedal edema, calf tenderness Back exam: Present: normal inspection. Absent: CVA tenderness (R), CVA tenderness (L) Neurological exam: Present: alert Skin exam: Present: warm, dry, intact, other (Jaundice). Absent: rash Course Vital Signs 02/27/19 02/27/19 02/27/19 03:00 05:46 07:51 Temperature 98 F 98 F Pulse Rate 124 H 116 H 125 H Respiratory 24 18 20 Rate Blood Pressure 166/93 131/70 141/85 O2 Sat by Pulse 97 96 100 Oximetry 02/27/19 02/27/19 02/27/19 09:36 10:42 12:10 Temperature Pulse Rate 125 H 125 H 130 H Respiratory 24 26 H 20 Rate Blood Pressure 144/62 121/94 165/87 O2 Sat by Pulse 98 100 98 Oximetry 02/27/19 14:36 Temperature Pulse Rate 130 H Respiratory 20 Rate Blood Pressure 187/92 O2 Sat by Pulse Oximetry Disposition Clinical Impression: Delirium, withdrawal, alcoholic, Jaundice Disposition: ADMITTED IP TO THIS HOSP Condition: Serious
[2019-02-27 03:41] LABS: HCT 35.2 % (39.0-53.0); HGB 12.1 gm/dL (13.0-17.5); Hypochromasia Slight; MCH 37.6 pg (25.0-35.0); MCHC 34.2 g/dL (31.0-37.0); Macrocytosis Marked; Mean Platelet Volume 8.1; RBC 3.21 m/uL (4.30-5.90); RDW 15.5 % (11.5-15.5); WBC 14.2 k/uL (3.8-10.6)
[2019-02-27 03:57] LABS: African American GFR (CKD) >90 (>60 ml/min/1.73 sqM); Albumin 3.7 g/dL (3.5-5.0); Amylase 46 U/L (30-110); Anion Gap 13 mmol/L; Calcium 7.7 mg/dL (8.4-10.2); Carbon Dioxide 20 mmol/L (22-30); Chloride 108 mmol/L (98-107); Glucose 104 mg/dL (74-99); Sodium 141 mmol/L (137-145); Total Protein 7.9 g/dL (6.3-8.2)
--- NOTE | 2019-02-27 03:57 | XR ---
EXAMINATION TYPE: XR chest 2V DATE OF EXAM: 02/27/2019 COMPARISON: 01/25/2019 HISTORY: Chest pain TECHNIQUE: Frontal and lateral views of the chest are obtained. FINDINGS: Heart and mediastinum are normal. Lungs are clear. Diaphragm is normal. Bony thorax appear s normal. There are chest leads. IMPRESSION: Normal chest. No change.
[2019-02-27 04:09] LABS: ALT 35 U/L (21-72); AST 411 U/L (17-59); Blood Urea Nitrogen 4 mg/dL (9-20); Potassium 5.4 mmol/L (3.5-5.1); Total Bilirubin 9.7 mg/dL (0.2-1.3)
[2019-02-27 04:10] LABS: Alkaline Phosphatase 154 U/L (38-126)
[2019-02-27 04:11] LABS: Alcohol 333 mg/dL
[2019-02-27 04:17] LABS: MCV 109.7 fL (80.0-100.0); Platelet Count 450 k/uL (150-450)
[2019-02-27 04:20] LABS: INR 1.3 (<1.2); Partial Thromboplastin Time 26.9 sec (22.0-30.0)
[2019-02-27 04:36] LABS: Basophils # (M) 0.14 k/uL (0-0.2); Eosinophils # (M) 0.43 k/uL (0-0.7); Lymphocytes # (M) 1.85 k/uL (1.0-4.8); Monocytes # (M) 1.28 k/uL (0-1.0); Neutrophils % (M) 74 %; Nucleated Red Blood Cells 0 /100 WBC (0-0); Total Cells Counted 100
[2019-02-27 04:37] LABS: Large Platelets Present; Target Cells Present
[2019-02-27] MEDS ORDERED: NALOXONE 0.4 MG/ML 1 ML VIAL IV PRN (06:47)
[2019-02-27] MEDS ORDERED: THIAMINE 100 MG/ML 2 ML VIAL IM STA (06:49)
[2019-02-27] MEDS: SODIUM CHLORIDE 0.9% 1,000 ML IV SCH ×5 (07:21→23:22)
[2019-02-27] MEDS ORDERED: ONDANSETRON 4 MG/2 ML VIAL IVP STA (07:40)
[2019-02-27] MEDS: LORazepam 2 MG/ML INJ IV PRN ×10 (07:54→22:13)
[2019-02-27] MEDS ORDERED: FAMOTIDINE 20 MG TAB PO SCH (09:00)
--- NOTE | 2019-02-27 10:01 | P.HPIM ---
History of Present Illness H&P Date: 02/27/19 Chief Complaint: Chest pain The patient is a 33-year-old male with a past medical history of essential hypertension, chronic alcoholism with alcoholic hepatitis, history of heroin abuse currently in remission who presents to the ER via private vehicle after being brought her by his brother. Apparently the patient presented to another local hospital earlier seeking help for alcoholism, he was apparently worked up there and discharged. He then re-presented here Complaining of chest pain now resolved without any associated shortness of breath. The patient is seeking help with his chronic alcoholism, he complains of shakes and feeling unsteady, he also complains of abdominal pain moderate without any radiation to the patient reports that he began having a yellowing of the whites of his eyes 3 days ago, the patient reports drinking 20-30 shots of vodka daily. He reports Having been to [facility] at least 4 or 5 times Previously for alcohol abuse, today the patient states that he's ready to quit as he feels awful. The patient is confident that he can overcome his alcohol abuse just like he did his heroin abuse which she reportedly quit cold turkey over 3 years ago. In the ER the patient had a comprehensive workup white count was 14.2 hemoglobin 12.1, MCV 109.7, PT/INR 13 and 1.3 respectively, serum potassium 5.4, serum bicarb 20, total bilirubin 9.7, AST 411 ALT 35, ammonia 33, serum alcohol 333, lipase 161. EKG showing sinus tachycardia with a rate of 123, chest x-ray showing no acute abnormalities Review of Systems Review of systems negative except per HPI 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, History of Any Multi-Drug Resistant Organisms: None Reported Past Surgical History: No Surgical Hx Reported Past Anesthesia/Blood Transfusion Reactions: No Reported Reaction Past Psychological History: Anxiety, Depression Smoking Status: Current every day smoker Past Alcohol Use History: Abuse, Daily Past Drug Use History: Heroin, IV Drug Use, Marijuana - Past Family History Father Family Medical History: No Reported History Additional Family Medical History / Comment(s): Father is a heroin addict now on methadone. Mother Family Medical History: Hypertension Medications and Allergies Home Medications Medication Instructions Recorded Confirmed Type Dextroamphetamine/Amphetamine 30 mg PO BID 07/24/18 02/27/19 History [Adderall] Metoprolol Tartrate [Lopressor] 50 mg PO BID 07/24/18 02/27/19 History LORazepam [Ativan] 1 mg PO DAILY PRN 02/27/19 02/27/19 History Allergies Allergy/AdvReac Type Severity Reaction Status Date / Time No Known Allergies Allergy Verified 02/27/19 07:07 Physical Exam Vitals: Vital Signs Temp Pulse Resp BP Pulse Ox 02/27/19 09:36 125 H 24 144/62 98 02/27/19 07:51 125 H 20 141/85 100 02/27/19 05:46 98 F 116 H 18 131/70 96 02/27/19 03:00 98 F 124 H 24 166/93 97 Intake and Output 02/26/19 02/27/19 02/27/19 22:59 06:59 14:59 Other: Weight 86.183 kg Constitutional: Mild distress, conversant, pleasant Eyes: No scleral icterus, moist conjunctiva, no lid-lag, PERRLA ENMT: NC/AT,Oropharynx clear, no erythema, exudates Neck:Supple, FROM, no masses, or JVD, No carotid bruits; No thyromegaly Lungs: Clear to auscultation, Clear to percussion, Normal respiratory effort, no accessory muscle use Cardiovascular: Regular rhythm tachycardic, No murmurs, gallops, or rubs no peripheral edema Abdominal: Soft Nontender, moderately distended, no guarding, no rebound or rigidity, Normoactive bowel sounds hepatosplenomegaly, No palpable mass No abdominal wall hernia noted Skin: Normal temperature, tone, texture, turgor, No induration No subcutaneous nodules, No rash, noted jaundice Extremities:No digital cyanosis No clubbing, Pedal pulses intact and sy mmetrical Radial pulses intact and symmetrical Normal gait and station, No calf tenderness Psychiatric: Alert and oriented to person, place and time, Appropriate affect Intact judgement Neuro: Muscles Strength 5/5 in all 4 extremities, Sensation to light touch grossly present throughout, Cranial nerves II-XII grossly intact. No focal sensory deficits Results CBC & Chem 7: 02/27/19 03:30 02/27/19 03:30 Labs: Abnormal Lab Results - Last 24 Hours (Table) 02/27/19 02/27/19 02/27/19 Range/Units 03:30 03:30 03:30 WBC 14.2 H (3.8-10.6) k/uL RBC 3.21 L (4.30-5.90) m/uL Hgb 12.1 L (13.0-17.5) gm/dL Hct 35.2 L (39.0-53.0) % MCV 109.7 H D (80.0-100.0) fL MCH 37.6 H (25.0-35.0) pg Neutrophils # (Manual) 10.51 H (1.3-7.7) k/uL Monocytes # (Manual) 1.28 H (0-1.0) k/uL Macrocytosis Marked A PT 13.0 H (9.0-12.0) sec INR 1.3 H (<1.2) Potassium 5.4 H (3.5-5.1) mmol/L Chloride 108 H (98-107) mmol/L Carbon Dioxide 20 L (22-30) mmol/L BUN 4 L (9-20) mg/dL Creatinine 0.56 L (0.66-1.25) mg/dL Glucose 104 H (74-99) mg/dL Calcium 7.7 L (8.4-10.2) mg/dL Total Bilirubin 9.7 H (0.2-1.3) mg/dL AST 411 H (17-59) U/L Alkaline Phosphatase 154 H (38-126) U/L Ammonia (<30) umol/L Serum Alcohol 333 H* mg/dL 02/27/19 Range/Units 03:37 WBC (3.8-10.6) k/uL RBC (4.30-5.90) m/uL Hgb (13.0-17.5) gm/dL Hct (39.0-53.0) % MCV (80.0-100.0) fL MCH (25.0-35.0) pg Neutrophils # (Manual) (1.3-7.7) k/uL Monocytes # (Manual) (0-1.0) k/uL Macrocytosis PT (9.0-12.0) sec INR (<1.2) Potassium (3.5-5.1) mmol/L Chloride (98-107) mmol/L Carbon Dioxide (22-30) mmol/L BUN (9-20) mg/dL Creatinine (0.66-1.25) mg/dL Glucose (74-99) mg/dL Calcium (8.4-10.2) mg/dL Total Bilirubin (0.2-1.3) mg/dL AST (17-59) U/L Alkaline Phosphatase (38-126) U/L Ammonia 33 H (<30) umol/L Serum Alcohol mg/dL Assessment and Plan (1) Alcohol withdrawal Current Visit: No Status: Acute Code(s): F10.239 - ALCOHOL DEPENDENCE WITH WITHDRAWAL, UNSPECIFIED SNOMED Code(s): 106224257 (2) Alcohol intoxication Current Visit: No Status: Acute Code(s): F10.929 - ALCOHOL USE, UNSPECIFIED WITH INTOXICATION, UNSPECIFIED SNOMED Code(s): 08828751 (3) Chronic alcohol dependence, continuous Current Visit: Yes Status: Acute Code(s): F10.20 - ALCOHOL DEPENDENCE, UNCOMPLICATED SNOMED Code(s): 174316238 (4) SIRS (systemic inflammatory response syndrome) Current Visit: Yes Status: Acute Code(s): R65.10 - SIRS OF NON-INFECTIOUS ORIGIN W/O ACUTE ORGAN DYSFUNCTION SNOMED Code(s): 766745979 (5) Leukocytosis Current Visit: Yes Status: Acute Code(s): D72.829 - ELEVATED WHITE BLOOD CELL COUNT, UNSPECIFIED SNOMED Code(s): 986017967 (6) Transaminitis Current Visit: Yes Status: Acute Code(s): R74.0 - NONSPEC ELEV OF LEVELS OF TRANSAMNS & LACTIC ACID DEHYDRGNSE SNOMED Code(s): 197244665 (7) Hyperkalemia Current Visit: Yes Status: Acute Code(s): E87.5 - HYPERKALEMIA SNOMED Code(s): 19103802 (8) Hyperbilirubinemia Current Visit: No Status: Acute Code(s): E80.6 - OTHER DISORDERS OF BILIRUBIN METABOLISM SNOMED Code(s): 70983054 (9) Alcoholic hepatitis Current Visit: Yes Status: Acute Code(s): K70.10 - ALCOHOLIC HEPATITIS WITHOUT ASCITES SNOMED Code(s): 317241534 (10) Macrocytic anemia Current Visit: Yes Status: Acute Code(s): D53.9 - NUTRITIONAL ANEMIA, UNSPECIFIED SNOMED Code(s): 57344204 (11) Jaundice Current Visit: Yes Status: Acute Code(s): R17 - UNSPECIFIED JAUNDICE SNOMED Code(s): 37699423 Plan: The patient is admitted anticipated greater than 2 midnight stay with acute alco hol intoxication concern for impending alcohol withdrawal/DTs , currently and sirs criteria as the patient is tachycardic and has a white count of 14, the patient is afebrile. The patient also has significant abnormalities including transaminitis hyperbilirubinemia and hyperkalemia. The patient will be given a 2 L normal saline bolus and placed on a banana bag, will order CT abdomen and pelvis RUQ US and a acute hepatitis panel & TSH. Review of the patient's prior imaging indicates the hepatic steatosis and hepatomegaly. The patient is placed on supportive therapy with anti-emetics and IV analgesics as needed. Patient is also started on symptom triggered [facility] alcohol withdrawal protocol. The patient also has new onset jaundice pronounced hyperbilirubinemia, will plan to consult GI for further recommendations. Patient patient on SCDs and Protonix for DVT and GI prophylaxis respectively CODE STATUS: Full Code Anticipated discharge: 2-[address]: Inpatient treatment facility possibly [facility]
[2019-02-27] MEDS: PANTOPRAZOLE 40 MG/10 ML VIAL IVP SCH (10:48)
--- NOTE | 2019-02-27 10:48 | CT ---
EXAMINATION TYPE: CT abdomen pelvis wo con DATE OF EXAM: 02/27/2019 COMPARISON: Previous study dated 03/18/2018. HISTORY: Abdominal pain. CT DLP: 1275.4 mGycm Automated exposure control for dose reduction was used. FINDINGS: Visualized portions of the lungs are clear. There is no pleural or pericardial fluid. The h eart is There is elevation of the right hemidiaphragm. There is a small amount of ascites. The liver is enlarged measuring 22 cm. It is low in attenuation and likely fatty infiltrated. The gal lbladder is not identified. The spleen is unremarkable. Both adrenal glands are normal There is no evidence of hydronephrosis or nephrolithiasis. Limited views of the pancreas are unremarkable. There is no significant retroperitoneal, iliac or inguinal adenopathy. The bladder is unremarkable. There is thickening of the entire colon. Small bowel loops are normal caliber. No free air is identified. No bony lesion is seen. IMPRESSION: 1. THICKENING IN THE ENTIRE COLON. PLEASE CORRELATE FOR COLITIS. 2. HEPATOMEGALY AND PROBABLE FATTY INFILTRATION OF THE LIVER. 3. SMALL AMOUNT OF ASCITES.
[2019-02-27] MEDS ORDERED: SODIUM CHLORIDE 0.9% 1,000 ML with MVI, ADULT NO.4 WITH VIT K 10 ML, THIAMINE 100 MG, F... IV ONE ×4 (10:57)
[2019-02-27 15:01] LABS: Glucose,Whole Blood 96 mg/dL (75-99)
[2019-02-27] MEDS: NICOTINE 14MG/24HR PATCH TRANSDERM SCH (17:31)
[2019-02-27] MEDS: THIAMINE 100 MG TAB PO SCH (17:32)
[2019-02-27 18:01] LABS: Appearance,Urine Clear (Clear); Bilirubin,Urine 2+ (Negative); Blood,Urine Negative (Negative); Color,Urine Dark Yellow; Glucose,Urine (UA) Negative (Negative); Ketones,Urine Negative (Negative); Leukocyte Esterase,Urine Negative (Negative); Nitrite,Urine Negative (Negative); PH, Urine 5.5 (5.0-8.0); Protein,Urine Negative (Negative); Specific Gravity,Urine 1.014 (1.001-1.035)
[2019-02-27] MEDS: IBUPROFEN 600 MG TAB PO PRN (22:14)
[2019-02-28] MEDS: LORazepam 2 MG/ML INJ IV PRN ×11 (00:36→23:43)
[2019-02-28 05:13] LABS: Basophils # (A) 0.2 k/uL (0-0.2); Basophils % (A) 2 %; Eosinophils # (A) 0.2 k/uL (0-0.7); Eosinophils % (A) 2 %; HCT 33.1 % (39.0-53.0); HGB 10.6 gm/dL (13.0-17.5); Hypochromasia Moderate; Lymphocytes # (A) 1.2 k/uL (1.0-4.8); Lymphocytes % (A) 10 %; MCH 35.7 pg (25.0-35.0); MCV 111.7 fL (80.0-100.0); Macrocytosis Marked; Mean Platelet Volume 7.5; Monocytes # (A) 0.4 k/uL (0-1.0); Monocytes % (A) 4 %; Neutrophils # (A) 9.5 k/uL (1.3-7.7); Neutrophils % (A) 81 %; Platelet Count 348 k/uL (150-450); RBC 2.96 m/uL (4.30-5.90); RDW 15.3 % (11.5-15.5); WBC 11.7 k/uL (3.8-10.6)
[2019-02-28 05:17] LABS: ALT 53 U/L (21-72); AST 369 U/L (17-59); African American GFR (CKD) >90 (>60 ml/min/1.73 sqM); Albumin 2.8 g/dL (3.5-5.0); Alcohol <10 mg/dL; Alkaline Phosphatase 155 U/L (38-126); Anion Gap 8 mmol/L; Blood Urea Nitrogen 4 mg/dL (9-20); Calcium 7.5 mg/dL (8.4-10.2); Carbon Dioxide 24 mmol/L (22-30); Chloride 106 mmol/L (98-107); Glucose 88 mg/dL (74-99); Potassium 3.8 mmol/L (3.5-5.1); Sodium 138 mmol/L (137-145); Total Bilirubin 12.8 mg/dL (0.2-1.3); Total Protein 6.5 g/dL (6.3-8.2)
[2019-02-28] MEDS ORDERED: POTASSIUM CHLORIDE ER 20 MEQ TAB.ER PO SCH (06:00)
[2019-02-28] MEDS: THIAMINE 100 MG TAB PO SCH ×2 (07:50→16:44)
[2019-02-28] MEDS: SODIUM CHLORIDE 0.9% 1,000 ML IV SCH (07:50)
--- NOTE | 2019-02-28 07:53 | US ---
EXAMINATION TYPE: US abdomen limited DATE OF EXAM: 02/28/2019 COMPARISON: CT abdomen pelvis dated 02/27/2019 CLINICAL HISTORY: transaminitis, leukocytosis. ETOH withdrawal, ICU pt EXAM MEASUREMENTS: Liver Length: 21.6 cm Gallbladder Wall: 0.4 cm CBD: N/A cm Right Kidney: 10.4 x 5.3 x 6.1 cm *ICU patient that slept through US, bowel gas limits study Pancreas: not seen due to bowel gas Liver: very difficult to penetrate, enlarged Gallbladder: contracted with thickened wall and appearance of sludge within Evidence for sonographic Erazo's sign: no CBD: could not discern duct at this exam Right Kidney: wnl IMPRESSION: Suboptimal examination due to extensive overlying bowel gas 1. Enlarged and coarsened liver is suboptimally visualized. At least moderate hepatic steatosis is posey spected. 2. Gallbladder wall thickening and pericholecystic fluid are seen however this may be on the basis of a partially contracted gallbladder, ascites, and adjacent hepatocellular disease rather than acute c holecystitis. If there is concern for cholecystitis HIDA scan would be recommended. 3. Partially visualized abdominal ascites. 4. Common bile duct and pancreas are not visualized.
[2019-02-28 07:59] LABS: Glucose,Whole Blood 79 mg/dL (75-99)
[2019-02-28] MEDS: NICOTINE 14MG/24HR PATCH TRANSDERM SCH (08:50)
[2019-02-28] MEDS: PANTOPRAZOLE 40 MG/10 ML VIAL IVP SCH (08:50)
[2019-02-28 09:40] LABS: Glucose,Whole Blood 65 mg/dL (75-99)
[2019-02-28] MEDS ORDERED: DEXTROSE 10 % IN WATER 250 ML IV ONE (09:49)
[2019-02-28] MEDS: DEXTROSE 5%-0.45% NACL 1,000 ML IV SCH ×2 (09:52→16:44)
--- NOTE | 2019-02-28 10:02 | P.PN ---
Subjective Progress Note Date: 02/28/19 Principal diagnosis: Alcohol withdrawal Patient was seen and examined. No acute events overnight. Patient states last drink was on the day of admission, 20-30 shots of hard liquor. States that his withdrawals have never been worse. Never admitted to [facility]. Requesting to be transferred straight to [facility]. States that he wants to quit drinking because he noticed that his eyes and skin were starting to turn yellow. Poor appetite. Denies any chest pain, shortness of breath or palpitations. Objective - Vital Signs Vital signs: Vital Signs Temp 98.2 F 02/28/19 08:00 Pulse 112 H 02/28/19 08:00 Resp 17 02/28/19 08:00 BP 150/80 02/28/19 08:00 Pulse Ox 99 02/28/19 08:27 Intake & Output 02/27/19 02/28/19 02/28/19 18:59 06:59 18:59 Intake Total 425 1400 125 Output Total 450 450 0 Balance -25 950 125 Weight 104.4 kg Intake: IV 1300 125 Sodium Chloride 0.9% 1, 300 000 ml @ 100 mls/hr IV . Q10H7M ONE with Mvi, Adult No.4 with Vit K 10 ml with Thiamine 100 mg with Folic Acid 1 mg Rx#: [id number] Sodium Chloride 0.9% 1, 1000 125 000 ml @ 125 mls/hr IV . Q8H DANILO Rx#:[id number] Intake, IV Titration 325 100 Amount Sodium Chloride 0.9% 1, 200 100 000 ml @ 100 mls/hr IV . Q10H7M ONE with Mvi, Adult No.4 with Vit K 10 ml with Thiamine 100 mg with Folic Acid 1 mg Rx#: [id number] Sodium Chloride 0.9% 1, 125 000 ml @ 125 mls/hr IV . Q8H DANILO Rx#:[id number] Oral 100 Output: Urine 450 450 0 Other: Voiding Method Urinal Urinal # Voids 1 0 # Bowel Movements 1 - Exam General: [non toxic], [tremulous], [appears at stated age] Derm: [warm], [dry] Head: [atraumatic], [normocephalic], [symmetric] Eyes: [EOMI], [no lid lag], [jaundiced sclera] Mouth: [no lip lesion], [mucus membranes moist] Cardiovascular: [S1S2 reg], [tachycardic], [positive DP pulse bilateral], Lungs: [CTA bilateral], [no rhonchi, no rales] , [no accessory muscle use] Abdominal: [Slightly distended], [ nontender to palpation], [no guarding], [no appreciable organomegaly] Ext: [no gross muscle atrophy], [no edema], [no contractures] Neuro: [no focal neuro deficits] Psych: [Alert], [oriented], [appropriate affect] - Labs CBC & Chem 7: 02/28/19 04:17 02/28/19 04:23 Labs: Abnormal Lab Results - Last 24 Hours (Table) 02/27/19 02/28/19 02/28/19 Range/Units 17:40 04:17 04:23 WBC 11.7 H (3.8-10.6) k/uL RBC 2.96 L (4.30-5.90) m/uL Hgb 10.6 L (13.0-17.5) gm/dL Hct 33.1 L (39.0-53.0) % MCV 111.7 H (80.0-100.0) fL MCH 35.7 H (25.0-35.0) pg Neutrophils # 9.5 H (1.3-7.7) k/uL Macrocytosis Marked A BUN 4 L (9-20) mg/dL Creatinine 0.56 L (0.66-1.25) mg/dL POC Glucose (mg/dL) (75-99) mg/dL Calcium 7.5 L (8.4-10.2) mg/dL Total Bilirubin 12.8 H (0.2-1.3) mg/dL AST 369 H (17-59) U/L Alkaline Phosphatase 155 H (38-126) U/L Albumin 2.8 L (3.5-5.0) g/dL Urine Bilirubin 2+ H (Negative) 02/28/19 Range/Units 09:39 WBC (3.8-10.6) k/uL RBC (4.30-5.90) m/uL Hgb (13.0-17.5) gm/dL Hct (39.0-53.0) % MCV (80.0-100.0) fL MCH (25.0-35.0) pg Neutrophils # (1.3-7.7) k/uL Macrocytosis BUN (9-20) mg/dL Creatinine (0.66-1.25) mg/dL POC Glucose (mg/dL) 65 L (75-99) mg/dL Calcium (8.4-10.2) mg/dL Total Bilirubin (0.2-1.3) mg/dL AST (17-59) U/L Alkaline Phosphatase (38-126) U/L Albumin (3.5-5.0) g/dL Urine Bilirubin (Negative) Assessment and Plan Assessment: Assessment and Plan Severe alcohol intoxication with impending alcohol withdrawal SIRS Transaminitis Macrocytosis Hypertension ADHD Blood alcohol level negative on admission. Patient is high risk for alcohol withdrawal. Has left [facility] twice recently to go back to drinking. Plans: CIWA protocol. Ativan as needed for withdrawal. Zofran as needed for nausea or vomiting. Start thiamine. Start D5 at 125 mL/h. Seizure and fall precautions. Telemetry monitoring. Meet SIRS criteria. Tachycardic. Leukocytosis of 11.7. Respiratory rate greater than 20. Likely related to alcohol withdrawal rather than infection. C. diff negative. UA negative. Chest x-ray negative. CT abdomen showing possible concerns of colitis. Plans: Repeat CBC in the morning. Continue to monitor. Continue IV fluid. Order lactic acid. No indications for antibiotics at this time. Total bilirubin 12.8. AST 369. ALT 84. Alkaline phosphatase 184. Likely due to alcohol abuse, probable cirrhosis. CT shows thickening of entire colon, hepatomegaly, small amount of ascites. Right upper quadrant ultrasound shows hepatic steatosis, gallbladder thickening and pericholecystic fluid. Plans: We'll continue to monitor while inpatient. Patient needs to quit drinking. Follow GI recommendations. MCV 111.7. Likely secondary to alcohol abuse. Plans: Daily CBC. BP 150/80 on admission. Likely due to alcohol withdrawal. Plans: Start metoprolol 50 mg by mouth twice a day. Monitor vitals, adjust medications as necessary. Plans: Not on home medication. [Patient admitted for alcohol withdrawal. Currently in ICU. CIWA protocol with Ativan as needed. multimedia services manager consulted for cessation advised. Likely DC in 2-3 days pending improvement.]
[2019-02-28 10:09] LABS: Glucose,Whole Blood 121 mg/dL (75-99)
[2019-02-28] MEDS: METOPROLOL TARTRATE 50 MG TAB PO SCH ×2 (10:53→20:26)
[2019-02-28] MEDS: IBUPROFEN 600 MG TAB PO PRN (10:54)
[2019-02-28 11:12] LABS: Hepatitis A Antibody IgM Non-Reactive (Non-Reactive); Hepatitis B Core IgM Non-Reactive (Non-Reactive); Hepatitis B Surface Antigen Non-Reactive (Non-Reactive); Hepatitis C IgG Antibody Reactive (Non-Reactive)
--- NOTE | 2019-02-28 13:05 | P.CNPUL ---
History of Present Illness Consult date: 02/28/19 Requesting physician: Stormy Whalen Reason for consult: other (Alcoholism and impending alcohol withdrawal) Chief complaint: Chronic alcoholism seeking detoxification History of present illness: This is a 53-year-old white male with history of multiple medical problems including chronic alcoholism, alcoholic hepatitis, hypertension, previous history of heroin abuse, currently in remission, patient presented to the ER via private vehicle seeking admission to the hospital for his alcoholism and detoxification. Patient also had some vague chest discomfort apparently on presentation which was felt to be musculoskeletal, and patient was complaining of shakes and tremors feeling unsteady, and feeling quite anxious. Patient was noted to be intoxicated, and he drinks on the average of 20-3 shots of vodka daily. He has been complaining of worsening yellow discoloration of his skin and eyes over the last 3 days. At any rate patient was worked up in the ER, and his total bilirubin was noted to be 9.7 AST of 411 ALT of 35 ammonia level was 33 alcohol level was 333 and lipase was 161. EKG showed mostly sinus tachycardia, chest x-ray showed no evidence of any abnormalities considering his presentation and his impending alcohol withdrawal, patient was admitted and this consult was initiated since the patient was admitted to the ICU. Review of Systems Constitutional: Denies: fever, chills, denies weight loss Respiratory: Denies cough wheezing or shortness of breath Cardiovascular: Denies chest pain, palpitations, denies orthopnea. Gastrointestinal: Denies nausea vomiting abdominal pain. Genitourinary: Denies dysuria frequency urgency or hematuria. Musculoskeletal: Complains of chronic low back pain Skin: Complains of yellow discoloration of the skin. Neurological: Denies headache blurred vision or dizziness. Denies diplopia. 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 He does not drive but states he is able to get rides to [employer]. Pt works at [employer]. Pt was admitted on 03/15/18 and at that time pt stated he is afraid if he left the hospital that he might drink himself to . When asked at that time if he would do that on purpose, he stated "I am not sure." He was seen by psych. Today, pt states he is not suicidal or homicidal. Smoking Status: Current every day smoker Past Alcohol Use History: Abuse, Daily Additional Past Alcohol Use History / Comment(s): Pt started smoking in 1998 and is a 0.25 ppd smoker. Past Drug Use History: Heroin, IV Drug Use, Marijuana Additional Drug Use History / Comment(s): CLEAN FROM HEROIN FOR ALMOST 3.5 YEARS - Past Family History Father Family Medical History: No Reported History Additional Family Medical History / Comment(s): Father is a heroin addict now on methadone. Mother Family Medical History: Hypertension Medications and Allergies Home Medications Medication Instructions Recorded Confirmed Type Dextroamphetamine/Amphetamine 30 mg PO BID 07/24/18 02/27/19 History [Adderall] Metoprolol Tartrate [Lopressor] 50 mg PO BID 07/24/18 02/27/19 History LORazepam [Ativan] 1 mg PO DAILY PRN 02/27/19 02/27/19 History Allergies Allergy/AdvReac Type Severity Reaction Status Date / Time No Known Allergies Allergy Verified 02/27/19 07:07 Physical Exam Vitals: Vital Signs Temp Pulse Pulse Resp BP Pulse Ox 02/28/19 11:00 116 H 21 161/96 98 02/28/19 10:00 22 125/62 99 02/28/19 09:00 110 H 18 149/83 99 02/28/19 08:27 99 02/28/19 08:00 98.2 F 112 H 17 150/80 100 02/28/19 07:00 115 H 18 145/69 98 02/28/19 06:00 113 H 25 H 141/78 99 02/28/19 05:00 108 H 19 141/78 98 02/28/19 04:00 98.5 F 115 H 112 H 18 94 L 02/28/19 03:00 114 H 25 H 138/83 96 02/28/19 02:00 98.8 F 114 H 20 138/83 95 02/28/19 01:00 121 H 24 94 L 02/28/19 00:00 100.7 F H 128 H 26 H 156/89 97 02/27/19 23:29 133 H 25 H 02/27/19 23:00 135 H 25 H 151/105 97 02/27/19 22:00 102.9 F H 138 H 36 H 180/103 97 02/27/19 21:00 140 H 29 H 151/105 97 02/27/19 20:00 103.1 F H 144 H 140 H 28 H 165/78 97 02/27/19 19:00 140 H 31 H 158/70 96 02/27/19 18:00 131 H 24 150/90 98 02/27/19 17:00 135 H 26 H 162/91 97 02/27/19 16:40 135 H 25 H 162/91 97 02/27/19 16:30 134 H 28 H 162/91 97 02/27/19 16:20 133 H 26 H 162/91 98 02/27/19 16:10 131 H 24 162/91 97 02/27/19 16:00 134 H 25 H 155/90 97 02/27/19 15:50 133 H 26 H 155/90 96 02/27/19 15:40 98.3 F 129 H 25 H 155/90 97 02/27/19 15:30 130 H 26 H 155/90 96 02/27/19 15:21 98.3 F 97 02/27/19 15:20 123 H 21 155/90 99 02/27/19 15:10 111 H 23 155/90 95 02/27/19 15:00 128 H 26 H 156/96 98 02/27/19 14:56 131 H 14 02/27/19 14:36 130 H 20 187/92 Intake and Output 02/27/19 02/28/19 02/28/19 22:59 06:59 14:59 Intake Total 825 1000 1000 Output Total 600 300 475 Balance 225 700 525 Intake: IV 300 1000 375 Sodium Chloride 0.9% 1, 300 0 000 ml @ 100 mls/hr IV . Q10H7M ONE with Mvi, Adult No.4 with Vit K 10 ml with Thiamine 100 mg with Folic Acid 1 mg Rx#: [id number] Sodium Chloride 0.9% 1, 1000 375 000 ml @ 125 mls/hr IV . Q8H ON LICENSE OF [facility] Rx#:[id number] Intake, IV Titration 425 625 Amount Dextrose 10 % in Water 250 250 ml @ 999 mls/hr IV ONCE ONE Rx#:[id number] Dextrose 5%-0.45% NaCl 1, 375 000 ml @ 125 mls/hr IV . Q8H ON LICENSE OF [facility] Rx#:[id number] Sodium Chloride 0.9% 1, 300 000 ml @ 100 mls/hr IV . Q10H7M ONE with Mvi, Adult No.4 with Vit K 10 ml with Thiamine 100 mg with Folic Acid 1 mg Rx#: [id number] Sodium Chloride 0.9% 1, 125 000 ml @ 125 mls/hr IV . Q8H ON LICENSE OF [facility] Rx#:[id number] Oral 100 Output: Urine 600 300 400 Stool 75 Other: Voiding Method Urinal Urinal Urinal # Voids 0 1 1 # Bowel Movements 2 1 Weight 104.4 kg Physical Exam: Revealed a 53-year-old white male, obese, jaundiced, anxious, in no form of respiratory distress. Head: Atraumatic, normocephalic. HEENT:[Neck is supple.] [No neck masses.] [No thyromegaly.] [No JVD.] Positive icterus. Moist mucous membranes. Chest: [Clear throughout, no crackles, no rhonchi, no wheezes.] Cardiac Exam: Tachycardic [Normal S1 and S2, no S3 gallop, no murmur.] Abdomen: [Obese, Soft, nontender, no megaly, no rebound, no guarding, normal bowel sounds.] Extremities: [No clubbing, no edema, no cyanosis.] Neurological Exam: Patient is a poor historian, seems to be alert oriented to person place and time, but quite anxious. And noted to be tremulous. Psychiatric: Anxious mood, blunt affect, normal mental status examination. Except noted to be quite anxious. Skin: Positive yellow discoloration throughout. Patient is noted to be quite jaundiced. Results - Laboratory Findings CBC and BMP: 02/28/19 04:17 02/28/19 04:23 PT/INR, D-dimer PT 13.0 sec (9.0-12.0) H 02/27/19 03:30 INR 1.3 (<1.2) H 02/27/19 03:30 Abnormal lab findings: Abnormal Labs 02/27/19 02/27/19 02/27/19 03:30 03:30 03:30 WBC 14.2 H RBC 3.21 L Hgb 12.1 L Hct 35.2 L MCV 109.7 H D MCH 37.6 H Neutrophils # Neutrophils # (Manual) 10.51 H Monocytes # (Manual) 1.28 H Macrocytosis Marked A PT 13.0 H INR 1.3 H Potassium 5.4 H Chloride 108 H Carbon Dioxide 20 L BUN 4 L Creatinine 0.56 L Glucose 104 H POC Glucose (mg/dL) Calcium 7.7 L Total Bilirubin 9.7 H AST 411 H Alkaline Phosphatase 154 H Ammonia Albumin Urine Bilirubin Serum Alcohol 333 H* Hep C IgG Ab 02/27/19 02/27/19 02/27/19 03:30 03:37 17:40 WBC RBC Hgb Hct MCV MCH Neutrophils # Neutrophils # (Manual) Monocytes # (Manual) Macrocytosis PT INR Potassium Chloride Carbon Dioxide BUN Creatinine Glucose POC Glucose (mg/dL) Calcium Total Bilirubin AST Alkaline Phosphatase Ammonia 33 H Albumin Urine Bilirubin 2+ H Serum Alcohol Hep C IgG Ab Reactive H 02/28/19 02/28/19 02/28/19 04:17 04:23 09:39 WBC 11.7 H RBC 2.96 L Hgb 10.6 L Hct 33.1 L MCV 111.7 H MCH 35.7 H Neutrophils # 9.5 H Neutrophils # (Manual) Monocytes # (Manual) Macrocytosis Marked A PT INR Potassium Chloride Carbon Dioxide BUN 4 L Creatinine 0.56 L Glucose POC Glucose (mg/dL) 65 L Calcium 7.5 L Total Bilirubin 12.8 H AST 369 H Alkaline Phosphatase 155 H Ammonia Albumin 2.8 L Urine Bilirubin Serum Alcohol Hep C IgG Ab 02/28/19 10:07 WBC RBC Hgb Hct MCV MCH Neutrophils # Neutrophils # (Manual) Monocytes # (Manual) Macrocytosis PT INR Potassium Chloride Carbon Dioxide BUN Creatinine Glucose POC Glucose (mg/dL) 121 H Calcium Total Bilirubin AST Alkaline Phosphatase Ammonia Albumin Urine Bilirubin Serum Alcohol Hep C IgG Ab - Diagnostic Findings Additional studies: Ultrasound of the liver was noted, moderate hepatic steatosis is noted. And abdominal ascites is noted. Chest x-ray showed no evidence of acute abnormality. CT of the abdomen and pelvis showed thickened entire colon suspicious for colitis. There is evidence of hepatomegaly and probable fatty infiltration of the liver and small amount of ascites. Assessment and Plan Assessment: Impression: 1 acute alcohol intoxication 2 chronic alcoholism 3 acute alcohol hepatitis 4 acute jaundice secondary to alcohol abuse and alcohol liver disease 5 impending alcohol withdrawal Recommendation: Agree with admitting the patient to the ICU, patient will be placed on alcohol withdrawal protocol, will ask for GI consultation regarding his alcohol liver disease, continue supportive care measures, GI and DVT prophylaxis, will follow closely. Prognosis is definitely poor and guarded. Time with Patient: Greater than 30
--- NOTE | 2019-02-28 16:20 | P.CN ---
Psychiatric Consult - . 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 HISTORY OF PRESENT ILLNESS: The patient was brought into the hospital and evaluated in the emergency room for chest pain and shortness of breath. Patient was known to have a EKG significant for tachycardia and a blood alcohol level of 333. Patient also had elevated liver functions tests on admission who was admitted for detox and SIRS criteria with new onset jaundice. Psychiatry was consulted for chronic alcohol use. Patient was seen at the bedside and appeared to be jaundice and was trembling in his hands. He stated that he was scared that he turned yellow past few days and knew that his liver was failing. He states that he is sick of alcohol and wants to go to rehab. He claims that he was drinking approximately 17 shots of 99 proof vodka prior to coming into the hospital. He states that he wants to live for his health and his daughter. He claims his mood is "stable" denies any depressive symptoms at this time. He did admit to anxiety and trembling however denies any other DTs symptoms including visual hallucinations and denies any seizures. He states that his sleep has been stable and has fair energy patient claims that he is agreeable to start medications and "give me anything I don't care I just don't want to drink anymore". At this time patient denies any suicidal or homical ideations, intent or plan. Patient denies any auditory, visual hallucinations and denies any paranoia or delusions. PAST PSYCHIATRIC HISTORY: Patient denies any previous psychiatric hospitalizations. Patient claims that he has a history of ADHD was diagnosed as child and was on Adderall 30 mg twice a day. He denies any previous suicide attempts in the past.. PAST MEDICAL HISTORY: Patient was recently diagnosed with hepatitis C, has a history of alcoholic hepatitis and intravenous drug use, hypertension. ALLERGIES: No known ALLERGIES. CHEMICAL DEPENDENCY HISTORY: Patient states that he smokes approximately 5 cigarettes a day and quit using heroin for over 3 years now and sober. Patient admits to a chronic history of drinking alcohol for several years and states that he has been to rehab 5 times in the past most recent time was 4 years ago at [facility]. FAMILY PSYCHIATRIC/SUBSTANCE USE HISTORY: Claims his father abuses heroin SOCIAL HISTORY: Admits to 2 DUIs in the past has served time in retirement MENTAL STATUS EXAM: General Appearance: Patient appears to be stated age is alert, directable and cooperative. Patient appears to be obese and in moderate distress secondary to anxiety and is trembling. Patient appears to be yellow/jaundice on his skin. Behavior: Patient is calmly lying in bed without any agitated behavior. Issue and is trembling at times. Speech: Patient's speech is fluent and nonpressured. Mood/Affect: Patient reports their mood is "stable", affect is congruent and constricted. Suicidality/Homicidality: Patient denies having any suicidal or homicidal ideation intent or plan. Perceptions: Patient denies any auditory or visual hallucinations. Though content/process: There is no evidence of any delusional thought content and thought process is linear and goal-directed. Patient is focused on going to rehab. Memory and concentration: AOX3, grossly intact for the purposes of this session. Can spell "WORLD" backwards Judgment and insight: Poor IMPRESSIONS: Alcohol use disorder, severe, currently in withdrawal History of opioid use disorder currently in remission Nicotine dependence PLAN: -At this time patient does NOT meet criteria for inpatient psychiatric admission. -Would recommend the following medication changes/additions: Patient agreeable to start back on acamprosate 333 mg 3 times a day with an increase to 666 mg 3 times a day for alcohol cravings. Patient is not a candidate for naltrexone or Antabuse due to his liver injury. Explained to patient about the need for compliance and to go to rehab and patient is agreeable at this time. -structural layout worker to assist patient in getting into [facility] rehab for alcohol use when patient is medically stable. -Psychiatry will sign off at this point 02/28/19 16:08 02/28/19 16:16
[2019-02-28] MEDS: ACAMPROSATE CALCIUM 333 MG TABLET.DR PO SCH ×2 (16:44→20:27)
[2019-02-28] MEDS: FOLIC ACID 1 MG TAB PO SCH (16:44)
--- NOTE | 2019-02-28 20:13 | CONS ---
CONSULTATION DATE OF DICTATION: 02/28/2019 REASON FOR CONSULTATION: Alcoholic liver disease. HISTORY OF PRESENT ILLNESS: The patient is a 33-year-old white male with history of heavy alcoholism with multiple hospitalizations with alcoholism, alcohol abuse and alcoholic hepatitis who was admitted to the hospital, as he was brought in by his brother because the patient complained of some chest pain with some shortness of breath. He had some alcohol withdrawal symptoms and hence he was admitted to the intensive care unit with close monitoring. The patient complains of abdominal pain. He has been having nausea and vomiting for the last 3 days' duration since he started cutting down his overall alcohol intake. He normally drinks 20 to 30 shots of vodka every day. He has been to [facility] 4 times in the past 2 years, which was not successful. He denies any rectal bleeding or melena. In the emergency room he had labs done that showed a serum alcohol level of 330. Bilirubin is 9.7, AST 411. ALT is 35. We are consulted because of this issue. PAST MEDICAL HISTORY: 1. Heavy alcohol abuse. 2. Hypertension. 3. Chronic liver disease with possible cirrhosis. 4. History of intravenous drug use. 5. Anxiety. 6. Depression. MEDICATIONS AT HOME: 1. Adderall. 2. Lopressor. 3. Ativan. SOCIAL HISTORY: Chronic smoker. Alcohol use as mentioned above. FAMILY HISTORY: Father heroin addict. Mother hypertension. REVIEW OF SYSTEMS: CARDIOPULMONARY: No chest pain or shortness of breath. GENITOURINARY: No dysuria or hematuria. MUSCULOSKELETAL: Unremarkable. SKIN: Unremarkable. ENDOCRINE: Unremarkable. PSYCHIATRIC: Anxiety, depression. ENT/VISION: Unremarkable. CONSTITUTIONAL: No recent weight loss. No fever, chills, night sweats. PHYSICAL EXAMINATION: He appears comfortable. No apparent distress. VITAL SIGNS: Stable. Blood pressure 119/88, pulse rate 96, temperature 98. HEENT examination unremarkable. Conjunctivae pink. Sclerae anicteric. Oral cavity no lesions. NECK: No JVD or lymph node enlargement. CHEST: Clear to auscultation. HEART: Regular rate and rhythm. ABDOMEN: Soft. Bowel sounds are positive. No organomegaly. There was mild tenderness in the right upper quadrant area. Liver was slightly palpable. EXTREMITIES: No pedal edema. SKIN: No rashes. NEUROLOGIC: Alert and oriented x3. No focal deficits. LABS TODAY: WBC 11.7, hemoglobin 10.6, platelets normal. T-bilirubin is 12.8, AST 369, ALT 53, alkaline phosphatase 155. C difficile negative. Serum alcohol less than 10 today[address] IMAGING: CT of the abdomen and pelvis done in the emergency room showed small amount of ascites, fatty infiltration of the liver with hepatomegaly. IMPRESSION: 1. Acute alcoholic hepatitis in this patient with history of heavy alcohol abuse who drinks about 20 to 30 shots of vodka every day and presented to the hospital with abdominal pain, nausea, vomiting for the last few days. Clinically he has hepatomegaly and elevated bilirubin and AST more than ALT, all consistent with acute alcoholic hepatitis. 2. Mild ascites. 3. Possible underlying liver cirrhosis. 4. Heavy alcohol abuse. 5. Alcohol withdrawal syndrome. RECOMMENDATIONS: 1. Continue with symptomatic and supportive care. 2. Abstinence from alcohol. 3. Low-salt diet. 4. Clinically the patient does not have any significant ascites; hence no need for any paracentesis. 5. Watch closely for alcohol withdrawal symptoms and we will follow him closely during his hospital stay. Thank you for this consultation. MMODL / IJN: [id number] /
[2019-03-01] MEDS: LORazepam 2 MG/ML INJ IV PRN ×12 (02:25→23:09)
[2019-03-01] MEDS: DEXTROSE 5%-0.45% NACL 1,000 ML IV SCH ×3 (04:39→16:00)
[2019-03-01 05:10] LABS: HGB 10.7 gm/dL (13.0-17.5); Hypochromasia Slight; MCH 36.5 pg (25.0-35.0); MCHC 33.3 g/dL (31.0-37.0); MCV 109.5 fL (80.0-100.0); Mean Platelet Volume 6.6; Platelet Count 337 k/uL (150-450); RBC 2.92 m/uL (4.30-5.90); RDW 14.8 % (11.5-15.5); WBC 11.4 k/uL (3.8-10.6)
[2019-03-01 05:14] LABS: Macrocytosis Marked
[2019-03-01 05:18] LABS: African American GFR (CKD) >90 (>60 ml/min/1.73 sqM); Anion Gap 8 mmol/L; Blood Urea Nitrogen 4 mg/dL (9-20); Calcium 7.5 mg/dL (8.4-10.2); Carbon Dioxide 23 mmol/L (22-30); Chloride 105 mmol/L (98-107); Glucose 105 mg/dL (74-99); Sodium 136 mmol/L (137-145)
[2019-03-01] MEDS: THIAMINE 100 MG TAB PO SCH ×2 (06:54→20:32)
[2019-03-01] MEDS ORDERED: PANTOPRAZOLE 40 MG TABLET PO SCH (07:30)
[2019-03-01] MEDS: MULTIVITAMINS, THERA 1 EACH TAB PO SCH (08:06)
[2019-03-01] MEDS: FOLIC ACID 1 MG TAB PO SCH (08:07)
[2019-03-01] MEDS: METOPROLOL TARTRATE 50 MG TAB PO SCH ×2 (08:07→20:32)
[2019-03-01] MEDS: ACAMPROSATE CALCIUM 333 MG TABLET.DR PO SCH ×3 (08:07→20:32)
[2019-03-01] MEDS: NICOTINE 14MG/24HR PATCH TRANSDERM SCH (08:07)
[2019-03-01 11:19] LABS: ALT 45 U/L (21-72); AST 270 U/L (17-59); Albumin 2.5 g/dL (3.5-5.0); Alkaline Phosphatase 155 U/L (38-126); Bilirubin, Conjugated 4.9 mg/dL (0.0-0.3); Bilirubin, Delta 5.1 mg/dL (0.0-0.2); Bilirubin,Unconjugated 1.7 mg/dL (0.0-1.1); Total Bilirubin 11.7 mg/dL (0.2-1.3); Total Protein 5.9 g/dL (6.3-8.2)
--- NOTE | 2019-03-01 12:58 | P.PN ---
Subjective Progress Note Date: 03/01/19 Principal diagnosis: Alcohol withdrawal Patient was seen and examined. No acute events overnight. Patient states that he feels extremely nauseous but is able to tolerate oral intake, holding down food. He denies any chest pain, shortness of breath or palpitations. No fever or chills. Objective - Vital Signs Vital signs: Vital Signs Temp 98.0 F 03/01/19 08:00 Pulse 92 03/01/19 11:00 Resp 28 H 03/01/19 11:00 BP 129/73 03/01/19 11:00 Pulse Ox 96 03/01/19 11:00 Intake & Output 02/28/19 03/01/19 03/01/19 18:59 06:59 18:59 Intake Total 1875 1500 500 Output Total 1045 550 640 Balance 830 950 -140 Weight 105.5 kg Intake: IV 375 1375 500 Dextrose 5%-0.45% NaCl 1, 1375 375 000 ml @ 125 mls/hr IV . Q8H [facility] Rx#:[id number] Sodium Chloride 0.9% 1, 375 125 000 ml @ 125 mls/hr IV . Q8H [facility] Rx#:[id number] Intake, IV Titration 1500 125 Amount Dextrose 10 % in Water 250 250 ml @ 999 mls/hr IV ONCE ONE Rx#:[id number] Dextrose 5%-0.45% NaCl 1, 1250 125 000 ml @ 125 mls/hr IV . Q8H [facility] Rx#:[id number] Output: Urine 850 550 550 Stool 195 90 Other: Voiding Method Urinal Urinal Urinal # Voids 1 1 # Bowel Movements 1 1 - Exam General: [non toxic], [tremulous], [appears at stated age] Derm: [warm], [dry] Head: [atraumatic], [normocephalic], [symmetric] Eyes: [EOMI], [no lid lag], [jaundiced sclera] Mouth: [no lip lesion], [mucus membranes moist] Cardiovascular: [S1S2 reg], [tachycardic, though improved from 100s to 90s], [positive DP pulse bilateral], Lungs: [CTA bilateral], [no rhonchi, no rales] , [no accessory muscle use] Abdominal: [Slightly distended], [ nontender to palpation], [no guarding], [no appreciable organomegaly] Ext: [no gross muscle atrophy], [no edema], [no contractures] Neuro: [no focal neuro deficits] Psych: [Alert], [oriented], [appropriate affect] - Labs CBC & Chem 7: 03/01/19 04:44 03/01/19 04:40 Labs: Abnormal Lab Results - Last 24 Hours (Table) 03/01/19 03/01/19 Range/Units 04:40 04:44 WBC 11.4 H (3.8-10.6) k/uL RBC 2.92 L (4.30-5.90) m/uL Hgb 10.7 L (13.0-17.5) gm/dL Hct 32.0 L (39.0-53.0) % MCV 109.5 H (80.0-100.0) fL MCH 36.5 H (25.0-35.0) pg Macrocytosis Marked A Sodium 136 L (137-145) mmol/L BUN 4 L (9-20) mg/dL Creatinine 0.63 L (0.66-1.25) mg/dL Glucose 105 H (74-99) mg/dL Calcium 7.5 L (8.4-10.2) mg/dL Total Bilirubin 11.7 H (0.2-1.3) mg/dL Conjugated Bilirubin 4.9 H (0.0-0.3) mg/dL Unconjugated Bilirubin 1.7 H (0.0-1.1) mg/dL Delta Bilirubin 5.1 H (0.0-0.2) mg/dL AST 270 H (17-59) U/L Alkaline Phosphatase 155 H (38-126) U/L Total Protein 5.9 L (6.3-8.2) g/dL Albumin 2.5 L (3.5-5.0) g/dL Microbiology - Last 24 Hours (Table) 02/27/19 07:42 Blood Culture - Preliminary Blood No Growth after 48 hours Assessment and Plan Assessment: Assessment and Plan Severe alcohol intoxication with impending alcohol withdrawal SIRS Transaminitis Macrocytosis Hypertension ADHD Blood alcohol level negative on admission. Patient is high risk for alcohol withdrawal. Has left AMA twice recently to go back to drinking. Plans: Started on Acamprosate by Psychiatry. [place] protocol. Ativan as needed for withdrawal. Zofran as needed for nausea or vomiting. Start thiamine. Start D5 at 125 mL/h. Seizure and fall precautions. Telemetry monitoring. Meet SIRS criteria. Tachycardic. Leukocytosis of 11.7-11.4. Respiratory rate greater than 20. Likely related to alcohol withdrawal rather than infection. C. diff negative. UA negative. Chest x-ray negative. Lactic acid negative. CT abdomen showing possible concerns of colitis. Plans: Repeat CBC in the morning. Continue to monitor. Continue IV fluid. No indications for ant ibiotics at this time. Total bilirubin 12.8-11.7. AST 369-270. ALT 84-45. Alkaline phosphatase 184- 155. Likely due to alcohol abuse, probable cirrhosis. CT shows thickening of entire colon, hepatomegaly, small amount of ascites. Right upper quadrant ultrasound shows hepatic steatosis, gallbladder thickening and pericholecystic fluid. Plans: We'll continue to monitor while inpatient. Patient needs to quit drinking. Follow GI recommendations. MC 109.5 Likely secondary to alcohol abuse. Plans: Daily CBC. BP 129/73 on admission. Likely due to alcohol withdrawal. Plans: Start metop rolol 50 mg by mouth twice a day. Monitor vitals, adjust medications as necessary. Plans: Not on home medication. [Patient admitted for alcohol withdrawal. [facility] protocol with Ativan as needed. manager field services consulted for cessation advise. Likely DC in 1-2 days pending improvement.]
--- NOTE | 2019-03-01 15:01 | P.PN ---
Subjective Progress Note Date: 03/01/19 Principal diagnosis: Alcoholism and impending alcohol withdrawal This is a 53-year-old white male with history of multiple medical problems including chronic alcoholism, alcoholic hepatitis, hypertension, previous history of heroin abuse, currently in remission, patient presented to the ER via private vehicle seeking admission to the hospital for his alcoholism and detoxification. Patient also had some vague chest discomfort apparently on presentation which was felt to be musculoskeletal, and patient was complaining of shakes and tremors feeling unsteady, and feeling quite anxious. Patient was noted to be intoxicated, and he drinks on the average of 20-3 shots of vodka daily. He has been complaining of worsening yellow discoloration of his skin and eyes over the last 3 days. At any rate patient was worked up in the ER, and his total bilirubin was noted to be 9.7 AST of 411 ALT of 35 ammonia level was 33 alcohol level was 333 and lipase was 161. EKG showed mostly sinus tachycardia, chest x-ray showed no evidence of any abnormalities considering his presentation and his impending alcohol withdrawal, patient was admitted and this consult was initiated since the patient was admitted to the ICU. Reevaluated today on 03/01/2019, patient remains in the ICU, remains on the alcohol withdrawal protocol, seems to be calm, and no evidence of significant withdrawal. No major issues overnight, continues to have chronic low back pain. Had intermittent episodes of nausea but no vomiting. Seen by multiple consultants including gastroenterology and psychiatry. WBC count is 11.4 hemoglobin is 10.7 electrolytes are normal renal profile is normal. Total bilirubin is down to 11.7 and his transaminases are slightly better compared to yesterday. Objective - Vital Signs Vital signs: Vital Signs Temp 98.0 F 03/01/19 08:00 Pulse 92 03/01/19 11:00 Resp 28 H 03/01/19 11:00 BP 129/73 03/01/19 11:00 Pulse Ox 96 03/01/19 11:00 Intake & Output 02/28/19 03/01/19 03/01/19 18:59 06:59 18:59 Intake Total 1875 1500 875 Output Total 1045 550 940 Balance 830 950 -65 Weight 105.5 kg Intake: IV 375 1375 875 Dextrose 5%-0.45% NaCl 1, 1375 750 000 ml @ 125 mls/hr IV . Q8H [facility] Rx#:[id number] Sodium Chloride 0.9% 1, 375 125 000 ml @ 125 mls/hr IV . Q8H [facility] Rx#:[id number] Intake, IV Titration 1500 125 Amount Dextrose 10 % in Water 250 250 ml @ 999 mls/hr IV ONCE ONE Rx#:[id number] Dextrose 5%-0.45% NaCl 1, 1250 125 000 ml @ 125 mls/hr IV . Q8H [facility] Rx#:[id number] Output: Urine 850 550 850 Stool 195 90 Other: Voiding Method Urinal Urinal Urinal # Voids 1 1 # Bowel Movements 1 1 - Exam Physical Exam: Revealed a 53-year-old white male, obese, jaundiced, calm, in no distress. Head: Atraumatic, normocephalic. HEENT:[Neck is supple.] [No neck masses.] [No thyromegaly.] [No JVD.] Positive icterus. Moist mucous membranes. Chest: [Clear throughout, no crackles, no rhonchi, no wheezes.] Cardiac Exam: Tachycardic [Normal S1 and S2, no S3 gallop, no murmur.] Abdomen: [Obese, Soft, nontender, no megaly, no rebound, no guarding, normal bowel sounds.] Extremities: [No clubbing, no edema, no cyanosis.] Neurological Exam: Patient is a poor historian, seems to be alert oriented to person place and time, but quite anxious. And noted to be tremulous. Psychiatric: Calm mood, blunt affect, normal mental status examination. . Skin: Positive yellow discoloration throughout. Patient is noted to be quite jaundiced. - Labs CBC & Chem 7: 03/01/19 04:44 03/01/19 04:40 Labs: Abnormal Lab Results - Last 24 Hours (Table) 03/01/19 03/01/19 Range/Units 04:40 04:44 WBC 11.4 H (3.8-10.6) k/uL RBC 2.92 L (4.30-5.90) m/uL Hgb 10.7 L (13.0-17.5) gm/dL Hct 32.0 L (39.0-53.0) % MCV 109.5 H (80.0-100.0) fL MCH 36.5 H (25.0-35.0) pg Macrocytosis Marked A Sodium 136 L (137-145) mmol/L BUN 4 L (9-20) mg/dL Creatinine 0.63 L (0.66-1.25) mg/dL Glucose 105 H (74-99) mg/dL Calcium 7.5 L (8.4-10.2) mg/dL Total Bilirubin 11.7 H (0.2-1.3) mg/dL Conjugated Bilirubin 4.9 H (0.0-0.3) mg/dL Unconjugated Bilirubin 1.7 H (0.0-1.1) mg/dL Delta Bilirubin 5.1 H (0.0-0.2) mg/dL AST 270 H (17-59) U/L Alkaline Phosphatase 155 H (38-126) U/L Total Protein 5.9 L (6.3-8.2) g/dL Albumin 2.5 L (3.5-5.0) g/dL Microbiology - Last 24 Hours (Table) 02/27/19 07:42 Blood Culture - Preliminary Blood No Growth after 48 hours Assessment and Plan Assessment: Impression: 1 acute alcohol intoxication 2 chronic alcoholism 3 acute alcohol hepatitis 4 acute jaundice secondary to alcohol abuse and alcohol liver disease 5 impending alcohol withdrawal Recommendation: Continue director of business applications withdrawal protocol. Continue Protonix. Continue thiamine. Continue Lopressor. Consider transferring the patient out of the ICU to a regular medical floor, does not need a sitter since psychiatry felt that the patient was not suicidal. We'll continue to follow. Continue to monitor daily labs and liver enzymes. Time with Patient: Less than 30
--- NOTE | 2019-03-01 17:41 | PN ---
PROGRESS NOTE DATE OF DICTATION: 03/01/2019 Patient is a 33-year-old pleasant white male admitted to the hospital with acute alcoholic hepatitis and alcohol withdrawal. He was in the intensive care unit being monitored closely, and today he was transferred to the floor. He is very sleepy since he was transferred to the floor. He has received some Ativan because of withdrawals. He complains of diffuse abdominal pain. He complains of diffuse back pain. He reports no nausea, vomiting. No fever, chills or night sweats. PHYSICAL EXAMINATION: He appears comfortable. No apparent distress. VITAL SIGNS: Stable. Blood pressure is 129/73, pulse rate 92, temperature . HEENT examination unremarkable. Conjunctivae pink. Sclerae icteric. Oral cavity no lesions. NECK: No JVD or lymph node enlargement. CHEST: Clear to auscultation. HEART: Regular rate and rhythm. ABDOMEN: Obese. There was mild diffuse tenderness noted. No ascitic fluid seen. EXTREMITIES: No pedal edema. NEUROLOGIC: He is awake. Responsive to name but not to time. No focal deficits. LABS FROM TODAY: WBC 11.4, hemoglobin 10.7, platelets 337. T-bilirubin is 11.7, AST 270, ALT 45, alkaline phosphatase 155. IMPRESSION: 1. Acute alcoholic hepatitis. 2. Alcohol withdrawal. 3. History of heavy alcohol abuse. RECOMMENDATIONS: 1. Low-salt diet. 2. Treatment per protocol for alcohol withdrawal. 3. Monitor LFTs on a daily basis. 4. Abstinence from alcohol. Will follow the patient closely during his hospital stay. Thank you for this consultation. MMODL / MEAGHANN: [id number] /
[2019-03-01] MEDS ORDERED: HALOPERIDOL 1 MG TAB PO STA (22:39)
[2019-03-01] MEDS: IBUPROFEN 600 MG TAB PO PRN (23:09)
[2019-03-01] MEDS: PANTOPRAZOLE 40 MG/10 ML VIAL IVP SCH (23:09)
[2019-03-01] MEDS: SODIUM CHLORIDE 0.9% 1,000 ML IV SCH (23:10)
[2019-03-01 23:35] LABS: INR 1.6 (<1.2); Prothrombin Time 16.2 sec (9.0-12.0)
[2019-03-02 00:20] LABS: Basophils # (A) 0.1 k/uL (0-0.2); Basophils % (A) 1 %; Eosinophils # (A) 0.4 k/uL (0-0.7); Eosinophils % (A) 4 %; HCT 31.5 % (39.0-53.0); HGB 10.6 gm/dL (13.0-17.5); Hypochromasia Moderate; Lymphocytes # (A) 1.2 k/uL (1.0-4.8); Lymphocytes % (A) 12 %; MCH 37.2 pg (25.0-35.0); MCHC 33.5 g/dL (31.0-37.0); Mean Platelet Volume 6.9; Monocytes # (A) 0.6 k/uL (0-1.0); Monocytes % (A) 6 %; Neutrophils # (A) 7.6 k/uL (1.3-7.7); Neutrophils % (A) 76 %; Platelet Count 270 k/uL (150-450); RBC 2.84 m/uL (4.30-5.90); RDW 14.9 % (11.5-15.5)
[2019-03-02 00:21] LABS: Glucose,Whole Blood 101 mg/dL (75-99)
[2019-03-02 00:23] LABS: Macrocytosis Marked
[2019-03-02] MEDS: LORazepam 2 MG/ML INJ IV PRN ×10 (01:12→23:00)
[2019-03-02 06:27] LABS: Basophils # (A) 0.1 k/uL (0-0.2); Basophils % (A) 1 %; Eosinophils # (A) 0.4 k/uL (0-0.7); Eosinophils % (A) 3 %; HCT 35.7 % (39.0-53.0); HGB 11.2 gm/dL (13.0-17.5); Hypochromasia Marked; Lymphocytes # (A) 1.4 k/uL (1.0-4.8); Lymphocytes % (A) 11 %; MCH 36.2 pg (25.0-35.0); MCHC 31.5 g/dL (31.0-37.0); MCV 115.1 fL (80.0-100.0); Macrocytosis Marked; Mean Platelet Volume 6.9; Monocytes # (A) 0.6 k/uL (0-1.0); Monocytes % (A) 5 %; Neutrophils # (A) 9.3 k/uL (1.3-7.7); Neutrophils % (A) 78 %; Platelet Count 258 k/uL (150-450); RDW 14.8 % (11.5-15.5)
[2019-03-02] MEDS: SODIUM CHLORIDE 0.9% 1,000 ML IV SCH ×3 (06:31→20:08)
[2019-03-02] MEDS: THIAMINE 100 MG TAB PO SCH ×2 (06:32→16:31)
[2019-03-02 06:33] LABS: ALT 38 U/L (21-72); AST 214 U/L (17-59); African American GFR (CKD) >90 (>60 ml/min/1.73 sqM); Albumin 2.5 g/dL (3.5-5.0); Alkaline Phosphatase 129 U/L (38-126); Anion Gap 10 mmol/L; Blood Urea Nitrogen 4 mg/dL (9-20); Calcium 7.7 mg/dL (8.4-10.2); Carbon Dioxide 21 mmol/L (22-30); Chloride 110 mmol/L (98-107); Glucose 74 mg/dL (74-99); Potassium 3.8 mmol/L (3.5-5.1); Sodium 141 mmol/L (137-145); Total Bilirubin 14.2 mg/dL (0.2-1.3); Total Protein 6.2 g/dL (6.3-8.2)
[2019-03-02] MEDS: METOPROLOL TARTRATE 50 MG TAB PO SCH ×2 (08:46→20:07)
[2019-03-02] MEDS: PANTOPRAZOLE 40 MG/10 ML VIAL IVP SCH ×2 (08:46→20:06)
[2019-03-02] MEDS: ACAMPROSATE CALCIUM 333 MG TABLET.DR PO SCH ×3 (08:46→20:07)
[2019-03-02] MEDS: FOLIC ACID 1 MG TAB PO SCH (08:47)
[2019-03-02] MEDS: MULTIVITAMINS, THERA 1 EACH TAB PO SCH (08:47)
[2019-03-02] MEDS: NICOTINE 14MG/24HR PATCH TRANSDERM SCH ×2 (08:49→09:02)
[2019-03-02] MEDS: LACTULOSE 20 GM/30 ML CUP PO SCH ×2 (11:01→20:07)
--- NOTE | 2019-03-02 11:33 | P.PN ---
Subjective Progress Note Date: 03/02/19 Principal diagnosis: Alcohol withdrawal Patient was seen and examined. No acute events overnight. Downgraded to the floors yesterday. Apparently, experience multiple bloody bowel movements with increasing CIWA scoring, transferred back to ICU. As per RN, patient's with hallucinations, talking to his daughter with no one in the room. Patient denies any chest pain, shortness of breath or palpitations. No fever or chills. Objective - Vital Signs Vital signs: Vital Signs Temp 99.3 F 03/02/19 04:00 Pulse 97 03/02/19 07:00 Resp 22 03/02/19 07:00 BP 114/57 03/02/19 07:00 Pulse Ox 96 03/02/19 07:00 Intake & Output 03/01/19 03/02/19 03/02/19 18:59 06:59 18:59 Intake Total 875 840 140 Output Total 940 150 Balance -65 690 140 Weight 103.5 kg Intake: IV 875 840 140 Dextrose 5%-0.45% NaCl 1, 750 000 ml @ 125 mls/hr IV . Q8H [facility] Rx#:[id number] Sodium Chloride 0.9% 1, 125 000 ml @ 125 mls/hr IV . Q8H [facility] Rx#:[id number] Sodium Chloride 0.9% 1, 840 140 000 ml @ 140 mls/hr IV . Q7H9M [facility] Rx#:[id number] Output: Urine 850 150 Stool 90 Other: Voiding Method Urinal Urinal # Voids 1 # Bowel Movements 1 - Exam General: [non toxic], [tremulous], [appears at stated age] Derm: [warm], [dry] Head: [atraumatic], [normocephalic], [symmetric] Eyes: [EOMI], [no lid lag], [jaundiced sclera] Mouth: [no lip lesion], [mucus membranes moist] Cardiovascular: [S1S2 reg], [tachycardic, though improved from 100s to 90s], [positive DP pulse bilateral], Lungs: [CTA bilateral], [no rhonchi, no rales] , [no accessory muscle use] Abdominal: [Slightly distended], [ nontender to palpation], [no guarding], [no appreciable organomegaly] Ext: [no gross muscle atrophy], [no edema], [no contractures] Neuro: [no focal neuro deficits] Psych: [Alert], [oriented], [appropriate affect] - Labs CBC & Chem 7: 03/02/19 05:13 03/02/19 05:15 Labs: Abnormal Lab Results - Last 24 Hours (Table) 03/01/19 03/01/19 03/02/19 Range/Units 23:06 23:06 00:09 WBC (3.8-10.6) k/uL RBC 2.84 L (4.30-5.90) m/uL Hgb 10.6 L (13.0-17.5) gm/dL Hct 31.5 L (39.0-53.0) % MCV 111.0 H (80.0-100.0) fL MCH 37.2 H (25.0-35.0) pg Neutrophils # (1.3-7.7) k/uL Macrocytosis Marked A PT 16.2 H (9.0-12.0) sec INR 1.6 H (<1.2) Chloride (98-107) mmol/L Carbon Dioxide (22-30) mmol/L BUN (9-20) mg/dL Creatinine (0.66-1.25) mg/dL POC Glucose (mg/dL) 101 H (75-99) mg/dL Calcium (8.4-10.2) mg/dL Total Bilirubin (0.2-1.3) mg/dL AST (17-59) U/L Alkaline Phosphatase (38-126) U/L Total Protein (6.3-8.2) g/dL Albumin (3.5-5.0) g/dL 03/02/19 03/02/19 Range/Units 05:13 05:15 WBC 12.0 H (3.8-10.6) k/uL RBC 3.10 L (4.30-5.90) m/uL Hgb 11.2 L (13.0-17.5) gm/dL Hct 35.7 L (39.0-53.0) % MCV 115.1 H (80.0-100.0) fL MCH 36.2 H (25.0-35.0) pg Neutrophils # 9.3 H (1.3-7.7) k/uL Macrocytosis Marked A PT (9.0-12.0) sec INR (<1.2) Chloride 110 H (98-107) mmol/L Carbon Dioxide 21 L (22-30) mmol/L BUN 4 L (9-20) mg/dL Creatinine 0.62 L (0.66-1.25) mg/dL POC Glucose (mg/dL) (75-99) mg/dL Calcium 7.7 L (8.4-10.2) mg/dL Total Bilirubin 14.2 H (0.2-1.3) mg/dL AST 214 H (17-59) U/L Alkaline Phosphatase 129 H (38-126) U/L Total Protein 6.2 L (6.3-8.2) g/dL Albumin 2.5 L (3.5-5.0) g/dL Microbiology - Last 24 Hours (Table) 02/27/19 07:42 Blood Culture - Preliminary Blood No Growth after 72 hours Assessment and Plan Assessment: Assessment and Plan Severe alcohol intoxication with delirium tremens Bright red blood per rectum SIRS Transaminitis Macrocytosis Hypertension ADHD Blood alcohol level negative on admission. Patient is high risk for alcohol withdrawal. Has left AMA twice recently to go back to drinking. Plans: Started on Acamprosate by Psychiatry. CIWA protocol. Ativan as needed for withdrawal. Zofran as needed for nausea or vomiting. Start thiamine. Start D5 at 125 mL/h. Seizure and fall precautions. Telemetry monitoring. Follow psychiatry consultation. Hemoglobin stable. Hemoglobin 11.2 this morning. Possibly hemorrhoids? Plans: Reevaluation by GI. Daily CBC. Transfuse if hemoglobin less than 7. Follow stool for occult blood. Meet SIRS criteria. Tachycardic. Leukocytosis of 11.7-11.4-12. Respiratory rate greater than 20. Likely related to alcohol withdrawal rather than infection. C. diff negative. UA negative. Chest x-ray negative. Lactic acid negative. CT abdomen showing possible concerns of colitis. Plans: Repeat CBC in the morning. Continue to monitor. Continue IV fluid. No indications for antibiotics at this time. Total bilirubin 12.8-11.7-14.2. AST [phone]. ALT 84-45-38. Alkaline phosphatase 184-155-129. Likely due to alcohol abuse, probable cirrhosis. CT shows thickening of entire colon, hepatomegaly, small amount of ascites. Right upper quadrant ultrasound shows hepatic steatosis, gallbladder thickening and pericholecystic fluid. Plans: We'll continue to monitor while inpatient. Patient needs to quit drinking. Follow GI recommendations. MCV 115.1. Likely secondary to alcohol abuse. Plans: Daily CBC. BP 114/57 on admission. Likely due to alcohol withdrawal. Plans: Continue metoprolol 50 mg by mouth twice a day. Monitor vitals, adjust medications as necessary. Plans: Not on home medication. [Patient admitted for alcohol withdrawal. [facility] protocol with Ativan as needed. Follow stool for occult blood. Can probably be transferred out of ICU. Likely DC in 1-2 days pending improvement.]
--- NOTE | 2019-03-02 12:24 | P.PN ---
Subjective Progress Note Date: 03/02/19 Principal diagnosis: Alcoholism and impending alcohol withdrawal This is a 53-year-old white male with history of multiple medical problems including chronic alcoholism, alcoholic hepatitis, hypertension, previous history of heroin abuse, currently in remission, patient presented to the ER via private vehicle seeking admission to the hospital for his alcoholism and detoxification. Patient also had some vague chest discomfort apparently on presentation which was felt to be musculoskeletal, and patient was complaining of shakes and tremors feeling unsteady, and feeling quite anxious. Patient was noted to be intoxicated, and he drinks on the average of 20-3 shots of vodka daily. He has been complaining of worsening yellow discoloration of his skin and eyes over the last 3 days. At any rate patient was worked up in the ER, and his total bilirubin was noted to be 9.7 AST of 411 ALT of 35 ammonia level was 33 alcohol level was 333 and lipase was 161. EKG showed mostly sinus tachycardia, chest x-ray showed no evidence of any abnormalities considering his presentation and his impending alcohol withdrawal, patient was admitted and this consult was initiated since the patient was admitted to the ICU. Reevaluated today on 03/01/2019, patient remains in the ICU, remains on the alcohol withdrawal protocol, seems to be calm, and no evidence of significant withdrawal. No major issues overnight, continues to have chronic low back pain. Had intermittent episodes of nausea but no vomiting. Seen by multiple consultants including gastroenterology and psychiatry. WBC count is 11.4 hemoglobin is 10.7 electrolytes are normal renal profile is normal. Total bilirubin is down to 11.7 and his transaminases are slightly better compared to yesterday. Reevaluated today on 03/02/2019, patient was transferred back to the ICU from regular medical floor mostly because patient had 2 bloody bowel movements, and there was concern about hallucinations, and he had any increasing CIWA scoring. At any rate the patient is now in the ICU hemodynamically stable, basically abou t the same as he was yesterday. Hemoglobin remains stable his ammonia level is slightly elevated just above 30. His liver enzymes are improving however his bilirubin is a bit worse. Patient had a bowel movement today, and there was no evidence of blood. Patient again is basically about the same as he was yesterday. Remains on alcohol withdrawal protocol. All labs were reviewed. Objective - Vital Signs Vital signs: Vital Signs Temp 99.3 F 03/02/19 04:00 Pulse 97 03/02/19 07:00 Resp 22 03/02/19 07:00 BP 114/57 03/02/19 07:00 Pulse Ox 96 03/02/19 07:00 Intake & Output 03/01/19 03/02/19 03/02/19 18:59 06:59 18:59 Intake Total 875 840 140 Output Total 940 150 Balance -65 690 140 Weight 103.5 kg Intake: IV 875 840 140 Dextrose 5%-0.45% NaCl 1, 750 000 ml @ 125 mls/hr IV . Q8H [facility] Rx#:[id number] Sodium Chloride 0.9% 1, 125 000 ml @ 125 mls/hr IV . Q8H [facility] Rx#:[id number] Sodium Chloride 0.9% 1, 840 140 000 ml @ 140 mls/hr IV . Q7H9M [facility] Rx#:[id number] Output: Urine 850 150 Stool 90 Other: Voiding Method Urinal Urinal # Voids 1 # Bowel Movements 1 - Exam Physical Exam: Revealed a 33-year-old white male, obese, jaundiced, calm, in no distress. Head: Atraumatic, normocephalic. HEENT:[Neck is supple.] [No neck masses.] [No thyromegaly.] [No JVD.] Positive icterus. Moist mucous membranes. Chest: [Clear throughout, no crackles, no rhonchi, no wheezes.] Cardiac Exam: Tachycardic [Normal S1 and S2, no S3 gallop, no murmur.] Abdomen: [Obese, Soft, nontender, no megaly, no rebound, no guarding, normal bowel sounds.] Extremities: [No clubbing, no edema, no cyanosis.] Neurological Exam: arousable, in no distress, patient received Ativan earlier. Seems to be oriented to time place and person. Psychiatric: Calm mood, blunt affect, normal mental status examination. . Skin: Positive yellow discoloration throughout. . - Labs CBC & Chem 7: 03/02/19 05:13 03/02/19 05:15 Labs: Abnormal Lab Results - Last 24 Hours (Table) 03/01/19 03/01/19 03/02/19 Range/Units 23:06 23:06 00:09 WBC (3.8-10.6) k/uL RBC 2.84 L (4.30-5.90) m/uL Hgb 10.6 L (13.0-17.5) gm/dL Hct 31.5 L (39.0-53.0) % MCV 111.0 H (80.0-100.0) fL MCH 37.2 H (25.0-35.0) pg Neutrophils # (1.3-7.7) k/uL Macrocytosis Marked A PT 16.2 H (9.0-12.0) sec INR 1.6 H (<1.2) Chloride (98-107) mmol/L Carbon Dioxide (22-30) mmol/L BUN (9-20) mg/dL Creatinine (0.66-1.25) mg/dL POC Glucose (mg/dL) 101 H (75-99) mg/dL Calcium (8.4-10.2) mg/dL Total Bilirubin (0.2-1.3) mg/dL AST (17-59) U/L Alkaline Phosphatase (38-126) U/L Total Protein (6.3-8.2) g/dL Albumin (3.5-5.0) g/dL 03/02/19 03/02/19 Range/Units 05:13 05:15 WBC 12.0 H (3.8-10.6) k/uL RBC 3.10 L (4.30-5.90) m/uL Hgb 11.2 L (13.0-17.5) gm/dL Hct 35.7 L (39.0-53.0) % MCV 115.1 H (80.0-100.0) fL MCH 36.2 H (25.0-35.0) pg Neutrophils # 9.3 H (1.3-7.7) k/uL Macrocytosis Marked A PT (9.0-12.0) sec INR (<1.2) Chloride 110 H (98-107) mmol/L Carbon Dioxide 21 L (22-30) mmol/L BUN 4 L (9-20) mg/dL Creatinine 0.62 L (0.66-1.25) mg/dL POC Glucose (mg/dL) (75-99) mg/dL Calcium 7.7 L (8.4-10.2) mg/dL Total Bilirubin 14.2 H (0.2-1.3) mg/dL AST 214 H (17-59) U/L Alkaline Phosphatase 129 H (38-126) U/L Total Protein 6.2 L (6.3-8.2) g/dL Albumin 2.5 L (3.5-5.0) g/dL Microbiology - Last 24 Hours (Table) 02/27/19 07:42 Blood Culture - Preliminary Blood No Growth after 72 hours Assessment and Plan Assessment: Impression: 1 acute alcohol intoxication 2 chronic alcoholism 3 acute alcohol hepatitis 4 acute jaundice secondary to alcohol abuse and alcohol liver disease 5 impending alcohol withdrawal 6 GI bleeding exact source is not clear, this is being addressed by gastroenterology on the case, may or may not require EGD and/or colonoscopy. This will be decided upon by gastroenterology on the case. Recommendation: Continue certified nutritionist withdrawal protocol. Continue Protonix. Continue thiamine. Continue Lopressor. Patient will be r eevaluated today again by gastroenterology, and if felt appropriate to transfer out of the ICU with transfer out of the ICU again to a regular medical floor. We'll continue to follow. Overall prognosis remains extremely poor and guarded. Time with Patient: Less than 30
[2019-03-02] MEDS: ONDANSETRON 4 MG/2 ML VIAL IVP PRN (16:38)
[2019-03-02 16:41] LABS: Basophils # (A) 0.2 k/uL (0-0.2); Basophils % (A) 2 %; Eosinophils # (A) 0.3 k/uL (0-0.7); Eosinophils % (A) 3 %; HCT 36.2 % (39.0-53.0); HGB 11.1 gm/dL (13.0-17.5); Hypochromasia Marked; Lymphocytes # (A) 1.1 k/uL (1.0-4.8); Lymphocytes % (A) 11 %; MCH 36.2 pg (25.0-35.0); MCHC 30.6 g/dL (31.0-37.0); MCV 118.5 fL (80.0-100.0); Macrocytosis Marked; Mean Platelet Volume 7.4; Monocytes # (A) 0.5 k/uL (0-1.0); Monocytes % (A) 5 %; Neutrophils # (A) 7.2 k/uL (1.3-7.7); Neutrophils % (A) 77 %; Platelet Count 242 k/uL (150-450); RBC 3.06 m/uL (4.30-5.90); RDW 15.2 % (11.5-15.5); WBC 9.4 k/uL (3.8-10.6)
[2019-03-02] MEDS: CYCLOBENZAPRINE 5 MG TAB PO PRN (17:20)
[2019-03-02] MEDS: HYDROcodone/APAP 5-325MG 1 EACH TAB PO PRN (20:06)
[2019-03-03] MEDS: LORazepam 2 MG/ML INJ IV PRN ×10 (00:04→10:35)
[2019-03-03] MEDS: ONDANSETRON 4 MG/2 ML VIAL IVP PRN (01:30)
[2019-03-03] MEDS: HYDROcodone/APAP 5-325MG 1 EACH TAB PO PRN (02:21)
[2019-03-03] MEDS: SODIUM CHLORIDE 0.9% 1,000 ML IV SCH (03:03)
[2019-03-03 05:26] LABS: Basophils % (A) 0 %; Eosinophils # (A) 0.4 k/uL (0-0.7); Eosinophils % (A) 4 %; HCT 32.1 % (39.0-53.0); HGB 10.6 gm/dL (13.0-17.5); Hypochromasia Slight; Lymphocytes # (A) 1.4 k/uL (1.0-4.8); Lymphocytes % (A) 15 %; MCH 37.2 pg (25.0-35.0); MCHC 33.1 g/dL (31.0-37.0); Macrocytosis Marked; Mean Platelet Volume 6.3; Monocytes # (A) 0.7 k/uL (0-1.0); Monocytes % (A) 7 %; Neutrophils # (A) 6.7 k/uL (1.3-7.7); Neutrophils % (A) 70 %; Platelet Count 251 k/uL (150-450); RBC 2.85 m/uL (4.30-5.90); WBC 9.5 k/uL (3.8-10.6)
[2019-03-03 05:35] LABS: MCV 112.5 fL (80.0-100.0)
[2019-03-03 05:48] LABS: ALT 31 U/L (21-72); AST 180 U/L (17-59); African American GFR (CKD) >90 (>60 ml/min/1.73 sqM); Albumin 2.3 g/dL (3.5-5.0); Alkaline Phosphatase 118 U/L (38-126); Anion Gap 7 mmol/L; Blood Urea Nitrogen 4 mg/dL (9-20); Calcium 7.2 mg/dL (8.4-10.2); Carbon Dioxide 22 mmol/L (22-30); Chloride 109 mmol/L (98-107); Glucose 80 mg/dL (74-99); Potassium 3.6 mmol/L (3.5-5.1); Sodium 138 mmol/L (137-145); Total Protein 5.8 g/dL (6.3-8.2)
[2019-03-03] MEDS: CYCLOBENZAPRINE 5 MG TAB PO PRN (06:26)
[2019-03-03] MEDS: THIAMINE 100 MG TAB PO SCH (06:26)
[2019-03-03] MEDS: NICOTINE 14MG/24HR PATCH TRANSDERM SCH (08:11)
[2019-03-03] MEDS: FOLIC ACID 1 MG TAB PO SCH (08:11)
[2019-03-03] MEDS: ACAMPROSATE CALCIUM 333 MG TABLET.DR PO SCH (08:11)
[2019-03-03] MEDS: MULTIVITAMINS, THERA 1 EACH TAB PO SCH (08:11)
[2019-03-03] MEDS: METOPROLOL TARTRATE 50 MG TAB PO SCH (08:12)
[2019-03-03] MEDS: PANTOPRAZOLE 40 MG/10 ML VIAL IVP SCH (08:12)
[2019-03-03] MEDS: LACTULOSE 20 GM/30 ML CUP PO SCH (08:12)
[2019-03-03 08:16] VITALS: RESP 22
[2019-03-03 11:51] VITALS: BP 120/59; PULSE 97; TEMP 98.9
--- NOTE | 2019-03-03 12:12 | P.PN ---
Subjective Progress Note Date: 03/03/19 Principal diagnosis: Alcoholism and impending alcohol withdrawal This is a 53-year-old white male with history of multiple medical problems including chronic alcoholism, alcoholic hepatitis, hypertension, previous history of heroin abuse, currently in remission, patient presented to the ER via private vehicle seeking admission to the hospital for his alcoholism and detoxification. Patient also had some vague chest discomfort apparently on presentation which was felt to be musculoskeletal, and patient was complaining of shakes and tremors feeling unsteady, and feeling quite anxious. Patient was noted to be intoxicated, and he drinks on the average of 20-3 shots of vodka daily. He has been complaining of worsening yellow discoloration of his skin and eyes over the last 3 days. At any rate patient was worked up in the ER, and his total bilirubin was noted to be 9.7 AST of 411 ALT of 35 ammonia level was 33 alcohol level was 333 and lipase was 161. EKG showed mostly sinus tachycardia, chest x-ray showed no evidence of any abnormalities considering his presentation and his impending alcohol withdrawal, patient was admitted and this consult was initiated since the patient was admitted to the ICU. Reevaluated today on 03/01/2019, patient remains in the ICU, remains on the alcohol withdrawal protocol, seems to be calm, and no evidence of significant withdrawal. No major issues overnight, continues to have chronic low back pain. Had intermittent episodes of nausea but no vomiting. Seen by multiple consultants including gastroenterology and psychiatry. WBC count is 11.4 hemoglobin is 10.7 electrolytes are normal renal profile is normal. Total bilirubin is down to 11.7 and his transaminases are slightly better compared to yesterday. Reevaluated today on 03/02/2019, patient was transferred back to the ICU from regular medical floor mostly because patient had 2 bloody bowel movements, and there was concern about hallucinations, and he had any increasing CIWA scoring. At any rate the patient is now in the ICU hemodynamically stable, basically abou t the same as he was yesterday. Hemoglobin remains stable his ammonia level is slightly elevated just above 30. His liver enzymes are improving however his bilirubin is a bit worse. Patient had a bowel movement today, and there was no evidence of blood. Patient again is basically about the same as he was yesterday. Remains on alcohol withdrawal protocol. All labs were reviewed. Patient was reevaluated today on 03/30/2019, no evidence of active GI bleeding, patient is hemodynamically stable, remains on the alcohol withdrawal protocol. Patient is still jaundiced, still receiving Ativan as per the protocol. And no evidence of significant agitations as long as he is receiving Ativan as per protocol. Hemoglobin is holding at 10.6. Celexa lites are normal renal profile is normal total bilirubin is 14.0. Transaminases are improving. Objective - Vital Signs Vital signs: Vital Signs Temp 98.9 F 03/03/19 11:11 Pulse 97 03/03/19 11:11 Resp 22 03/03/19 11:11 BP 120/59 03/03/19 11:11 Pulse Ox 97 03/03/19 11:11 Intake & Output 03/02/19 03/03/19 03/03/19 18:59 06:59 18:59 Intake Total 1400 1540 Balance 1400 1540 Intake: IV 1400 1540 Sodium Chloride 0.9% 1, 1400 1540 000 ml @ 140 mls/hr IV . Q7H9M [facility] Rx#:[id number] Other: Voiding Method Toilet Toilet Toilet Bedside Commode Bedside Commode Bedside Commode Urinal Urinal # Voids 1 2 # Bowel Movements 1 3 - Exam Physical Exam: Revealed a 33-year-old white male, obese, jaundiced, calm, in no distress. Head: Atraumatic, normocephalic. HEENT:[Neck is supple.] [No neck masses.] [No thyromegaly.] [No JVD.] Positive icterus. Moist mucous membranes. Chest: [Clear throughout, no crackles, no rhonchi, no wheezes.] Cardiac Exam: Tachycardic [Normal S1 and S2, no S3 gallop, no murmur.] Abdomen: [Obese, Soft, nontender, no megaly, no rebound, no guarding, normal bowel sounds.] Extremities: [No clubbing, no edema, no cyanosis.] Neurological Exam: arousable, in no distress, patient received Ativan earlier. Seems to be oriented to time place and person. Psychiatric: Calm mood, blunt affect, normal mental status examination. . Skin: Positive yellow discoloration throughout. . - Labs CBC & Chem 7: 03/03/19 05:13 03/03/19 05:13 Labs: Abnormal Lab Results - Last 24 Hours (Table) 03/02/19 03/03/19 03/03/19 Range/Units 16:25 05:13 05:13 RBC 3.06 L 2.85 L (4.30-5.90) m/uL Hgb 11.1 L 10.6 L (13.0-17.5) gm/dL Hct 36.2 L 32.1 L (39.0-53.0) % MCV 118.5 H 112.5 H D (80.0-100.0) fL MCH 36.2 H 37.2 H (25.0-35.0) pg MCHC 30.6 L (31.0-37.0) g/dL Macrocytosis Marked A Marked A Chloride 109 H (98-107) mmol/L BUN 4 L (9-20) mg/dL Creatinine 0.65 L (0.66-1.25) mg/dL Calcium 7.2 L (8.4-10.2) mg/dL Total Bilirubin 14.0 H (0.2-1.3) mg/dL AST 180 H (17-59) U/L Total Protein 5.8 L (6.3-8.2) g/dL Albumin 2.3 L (3.5-5.0) g/dL Microbiology - Last 24 Hours (Table) 02/27/19 07:42 Blood Culture - Preliminary Blood No Growth after 96 hours Assessment and Plan Assessment: Impression: 1 acute alcohol intoxication 2 chronic alcoholism 3 acute alcohol hepatitis 4 acute jaundice secondary to alcohol abuse and alcohol liver disease 5 impending alcohol withdrawal 6 GI bleeding exact source is not clear, followed by gastroenterology. But no active bleeding at present. Recommendation: Continue charge preparation technician withdrawal protocol. Transfer patient to a regular medical floor, continue close observation and continue to follow the CIWA protocol. Continue Protonix. Continue thiamine. Continue Lopressor. We will sign off and see the patient on when necessary basis. Time with Patient: Less than 30
== END 2019-03-03 12:55 | disposition left against medical advice (07) | DRG 894 ==
LOC: EC 02:56 → 3NMEDONC 06:47 → 2SICU 14:22 → 3NMEDONC 03-01 14:58 → 2SICU 03-02 00:32 → 3NMEDONC 03-03 11:03
PROVIDERS: ADMIT Internal Medicine; ATTEND Internal Medicine
DX: F10.231 Alcohol dependence with withdrawal delirium (principal); R65.10 Systemic inflammatory response syndrome (SIRS) of non-infectious origin without acute organ dysfunction; K92.1 Melena; F10.221 Alcohol dependence with intoxication delirium; E87.5 Hyperkalemia; K70.11 Alcoholic hepatitis with ascites; K76.0 Fatty (change of) liver, not elsewhere classified; K70.31 Alcoholic cirrhosis of liver with ascites; B19.20 Unspecified viral hepatitis C without hepatic coma; R07.89 Other chest pain; Y90.8 Blood alcohol level of 240 mg/100 ml or more; F11.21 Opioid dependence, in remission; I10 Essential (primary) hypertension; F32.9 Major depressive disorder, single episode, unspecified; F41.9 Anxiety disorder, unspecified; F90.9 Attention-deficit hyperactivity disorder, unspecified type; D53.9 Nutritional anemia, unspecified; G89.29 Other chronic pain; M54.9 Dorsalgia, unspecified; E66.9 Obesity, unspecified; Z68.36 Body mass index [BMI] 36.0-36.9, adult; E53.8 Deficiency of other specified B group vitamins; F17.210 Nicotine dependence, cigarettes, uncomplicated; Z71.6 Tobacco abuse counseling; Z79.899 Other long term (current) drug therapy; Z87.01 Personal history of pneumonia (recurrent); Z82.49 Family history of ischemic heart disease and other diseases of the circulatory system; Z81.4 Family history of other substance abuse and dependence
CPT/HCPCS: 36415; 71046; 74176; 76705; 80048; 80053; 80074; 80076; 80320; 81003; 82140; 82150; 83605; 83690; 83735; 84443; 84484; 85025; 85027; 85610; 85730; 87040; 87324; 93005; 94760; 96361; 96372; 96374; 96375; 96376; 99285

== ENCOUNTER 2019-03-06 09:32 | Inpatient (IN) | payer OTHER ==
[2019-03-06] MEDS ORDERED: IBUPROFEN 600 MG TAB PO STA (09:53)
--- NOTE | 2019-03-06 10:02 | ED ---
General Adult HPI - General Chief complaint: Abdominal Pain Stated complaint: chest/abdominal pain & dizziness Time Seen by Provider: 03/06/19 09:35 Source: patient, RN notes reviewed Mode of arrival: wheelchair Limitations: no limitations - History of Present Illness Initial comments: This is a 33-year-old male who presents emergency Department with a past medical history significant for alcoholism. Patient comes in because she's been feeling weak and complaining of diffuse abdominal pain he also complains of some chest pain. Patient states he was drinking until about 4:30 this morning. Patient states over body aches he just doesn't feel well. Patient denies any injury or trauma. Patient denies being short of breath. Patient states there is swelling to his legs which is worsened recently. Patient denies any headache patient denies any numbness or focal weakness. Patient he has been having diarrhea for 7 months on and off. Patient states he has not vomited today but usually if he starts to withdrawal he begins to vomit until he goes and gets more alcohol. - Related Data Home Medications Medication Instructions Recorded Confirmed Dextroamphetamine/Amphetamine 30 mg PO BID 07/24/18 03/06/19 [Adderall] Metoprolol Tartrate [Lopressor] 50 mg PO BID 07/24/18 03/06/19 Allergies Allergy/AdvReac Type Severity Reaction Status Date / Time No Known Allergies Allergy Verified 03/06/19 09:44 Review of Systems ROS Statement: Those systems with pertinent positive or pertinent negative responses have been documented in the HPI. ROS Other: All systems not noted in ROS Statement are negative. 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 Mother Family Medical History: Hypertension General Exam - General Exam Comments Initial Comments: GENERAL: Patient is well-developed and well-nourished. Patient is nontoxic and well- hydrated and is in moderate distress. ENT: Neck is soft and supple. No significant lymphadenopathy is noted. Oropharynx is clear. Moist mucous membranes. Neck has full range of motion without eliciting any pain. EYES: Patient has sclera icterus. Extraocular movements were intact and pupils were equal round and reactive to light. Eyelids were unremarkable. PULMONARY: Unlabored respirations. Good breath sounds bilaterally. No audible rales rhonchi or wheezing was noted. CARDIOVASCULAR: Patient is tachycardic at about 130 beats a minute ABDOMEN: Abdomen is distended and diffusely tender SKIN: Patient's skin is jaundice NEUROLOGIC: Patient is alert and oriented x3. Cranial nerves II through XII are grossly intact. Motor and sensory are also intact. Normal speech, volume and content. Symmetrical smile. MUSCULOSKELETAL: Normal extremities with adequate strength and full range of motion. LYMPHATICS: No significant lymphadenopathy is noted PSYCHIATRIC: Patient appears intoxicated so difficult to assess. Patient is not suicidal or homicidal Limitations: no limitations Course Vital Signs 03/06/19 03/06/19 03/06/19 09:38 10:00 10:30 Temperature 100.6 F H Pulse Rate 142 H Respiratory 22 18 Rate Blood Pressure 129/77 158/89 131/79 O2 Sat by Pulse 94 L 96 Oximetry 03/06/19 03/06/19 03/06/19 11:00 11:30 12:00 Temperature 99.8 F H Pulse Rate 112 H 108 H 118 H Respiratory 18 18 18 Rate Blood Pressure 149/96 137/92 150/82 O2 Sat by Pulse 97 96 95 Oximetry Medical Decision Making - Medical Decision Making EKG shows sinus tachycardia at 133 bpm WI interval is 128 QRSs 84 QT interval 308 QTC is 458. Patient's EKG shows no ST segment elevation or depression or T wave abnormalities are noted. Chest x-ray shows no acute abnormality Patient's abdomen is diffusely tender and distended and is seeing the patient had spontaneous bacterial peritonitis and I started the patient 2 g of Rocephin. I spoke with Dr. Antwan kearney agreed to admit the patient admitted the patient wrote admitting orders. I consult to GI. - Lab Data Result diagrams: 03/06/19 09:55 03/06/19 09:55 Lab Results 03/06/19 03/06/19 03/06/19 Range/Units 09:55 09:55 09:55 WBC 9.5 (3.8-10.6) k/uL RBC 3.03 L (4.30-5.90) m/uL Hgb 10.9 L (13.0-17.5) gm/dL Hct 35.6 L (39.0-53.0) % MCV 117.2 H (80.0-100.0) fL MCH 35.8 H (25.0-35.0) pg MCHC 30.5 L (31.0-37.0) g/dL RDW 14.9 (11.5-15.5) % Plt Count 288 (150-450) k/uL Neutrophils % 72 % Lymphocytes % 14 % Monocytes % 7 % Eosinophils % 3 % Basophils % 0 % Neutrophils # 6.9 (1.3-7.7) k/uL Lymphocytes # 1.3 (1.0-4.8) k/uL Monocytes # 0.7 (0-1.0) k/uL Eosinophils # 0.3 (0-0.7) k/uL Basophils # 0.0 (0-0.2) k/uL Manual Slide Review Performed Hypochromasia Slight Poikilocytosis (manual Present Macrocytosis Marked A PT (9.0-12.0) sec INR (<1.2) APTT (22.0-30.0) sec Sodium 140 (137-145) mmol/L Potassium 3.4 L (3.5-5.1) mmol/L Chloride 107 (98-107) mmol/L Carbon Dioxide 21 L (22-30) mmol/L Anion Gap 12 mmol/L BUN 4 L (9-20) mg/dL Creatinine 0.72 (0.66-1.25) mg/dL Est GFR (CKD-EPI)AfAm >90 (>60 ml/min/1.73 sqM) Est GFR (CKD-EPI)NonAf >90 (>60 ml/min/1.73 sqM) Glucose 90 (74-99) mg/dL Plasma Lactic Acid Niko 2.6 H* (0.7-2.0) mmol/L Calcium 7.9 L (8.4-10.2) mg/dL Magnesium (1.6-2.3) mg/dL Total Bilirubin 15.1 H* (0.2-1.3) mg/dL AST 246 H (17-59) U/L ALT 30 (21-72) U/L Alkaline Phosphatase 124 (38-126) U/L Troponin I (0.000-0.034) ng/mL Total Protein 6.7 (6.3-8.2) g/dL Albumin 2.7 L (3.5-5.0) g/dL Serum Alcohol 109 mg/dL 03/06/19 03/06/19 03/06/19 Range/Units 09:55 09:55 09:55 WBC (3.8-10.6) k/uL RBC (4.30-5.90) m/uL Hgb (13.0-17.5) gm/dL Hct (39.0-53.0) % MCV (80.0-100.0) fL MCH (25.0-35.0) pg MCHC (31.0-37.0) g/dL RDW (11.5-15.5) % Plt Count (150-450) k/uL Neutrophils % % Lymphocytes % % Monocytes % % Eosinophils % % Basophils % % Neutrophils # (1.3-7.7) k/uL Lymphocytes # (1.0-4.8) k/uL Monocytes # (0-1.0) k/uL Eosinophils # (0-0.7) k/uL Basophils # (0-0.2) k/uL Manual Slide Review Hypochromasia Poikilocytosis (manual Macrocytosis PT 17.7 H (9.0-12.0) sec INR 1.8 H (<1.2) APTT 30.7 H (22.0-30.0) sec Sodium (137-145) mmol/L Potassium (3.5-5.1) mmol/L Chloride (98-107) mmol/L Carbon Dioxide (22-30) mmol/L Anion Gap mmol/L BUN (9-20) mg/dL Creatinine (0.66-1.25) mg/dL Est GFR (CKD-EPI)AfAm (>60 ml/min/1.73 sqM) Est GFR (CKD-EPI)NonAf (>60 ml/min/1.73 sqM) Glucose (74-99) mg/dL Plasma Lactic Acid Niko (0.7-2.0) mmol/L Calcium (8.4-10.2) mg/dL Magnesium 2.0 (1.6-2.3) mg/dL Total Bilirubin (0.2-1.3) mg/dL AST (17-59) U/L ALT (21-72) U/L Alkaline Phosphatase (38-126) U/L Troponin I <0.012 (0.000-0.034) ng/mL Total Protein (6.3-8.2) g/dL Albumin (3.5-5.0) g/dL Serum Alcohol mg/dL Critical Care Time Critical Care Time: Yes Total Critical Care Time: 35 Disposition Clinical Impression: Spontaneous bacterial peritonitis, Alcoholism, Acute liver failure Disposition: ADMITTED IP TO THIS HOSP Referrals: Mars Reynolds MD [Primary Care Provider] - 1-2 days Time of Disposition: 12:22
[2019-03-06] MEDS: SODIUM CHLORIDE 0.9% 500 ML 500 ML IV SCH ×2 (10:12→10:42)
[2019-03-06 10:13] LABS: Basophils % (A) 0 %; Eosinophils # (A) 0.3 k/uL (0-0.7); Eosinophils % (A) 3 %; HCT 35.6 % (39.0-53.0); HGB 10.9 gm/dL (13.0-17.5); Hypochromasia Slight; Lymphocytes # (A) 1.3 k/uL (1.0-4.8); Lymphocytes % (A) 14 %; MCH 35.8 pg (25.0-35.0); MCHC 30.5 g/dL (31.0-37.0); Macrocytosis Marked; Mean Platelet Volume 7.4; Monocytes # (A) 0.7 k/uL (0-1.0); Monocytes % (A) 7 %; Neutrophils # (A) 6.9 k/uL (1.3-7.7); Neutrophils % (A) 72 %; Platelet Count 288 k/uL (150-450); RBC 3.03 m/uL (4.30-5.90); RDW 14.9 % (11.5-15.5); WBC 9.5 k/uL (3.8-10.6)
[2019-03-06 10:18] LABS: MCV 117.2 fL (80.0-100.0)
[2019-03-06 10:24] LABS: ALT 30 U/L (21-72); AST 246 U/L (17-59); African American GFR (CKD) >90 (>60 ml/min/1.73 sqM); Albumin 2.7 g/dL (3.5-5.0); Alkaline Phosphatase 124 U/L (38-126); Anion Gap 12 mmol/L; Blood Urea Nitrogen 4 mg/dL (9-20); Calcium 7.9 mg/dL (8.4-10.2); Carbon Dioxide 21 mmol/L (22-30); Chloride 107 mmol/L (98-107); Glucose 90 mg/dL (74-99); Non-African American GFR(CKD) >90 (>60 ml/min/1.73 sqM); Potassium 3.4 mmol/L (3.5-5.1); Sodium 140 mmol/L (137-145); Total Protein 6.7 g/dL (6.3-8.2)
[2019-03-06 10:40] LABS: Total Bilirubin 15.1 mg/dL (0.2-1.3)
[2019-03-06 10:41] LABS: Alcohol 109 mg/dL
[2019-03-06 10:42] LABS: Poikilocytosis (M) Present
[2019-03-06 10:47] LABS: INR 1.8 (<1.2); Partial Thromboplastin Time 30.7 sec (22.0-30.0); Prothrombin Time 17.7 sec (9.0-12.0)
--- NOTE | 2019-03-06 10:48 | XR ---
EXAMINATION TYPE: XR chest 2V DATE OF EXAM: 03/06/2019 HISTORY: Fever. REFERENCE: Previous study dated 02/27/2019. FINDINGS: There is chronic apparent elevation of the right hemidiaphragm. The lungs are clear. Pleural spaces are clear. The heart is not enlarged. IMPRESSION: NO ACTIVE CARDIOPULMONARY ABNORMALITY.
[2019-03-06] MEDS ORDERED: LORazepam 2 MG/ML INJ IV STA (11:17)
[2019-03-06] MEDS ORDERED: SODIUM CHLORIDE 0.9% 1,000 ML IV ONE (12:22)
[2019-03-06] MEDS ORDERED: THIAMINE 100 MG/ML 2 ML VIAL IM STA (12:32)
[2019-03-06] MEDS ORDERED: traMADol 50 MG TAB PO PRN (14:01)
[2019-03-06] MEDS ORDERED: PHYTONADIONE 10 MG in SODIUM CHLORIDE 0.9% 50 ML IVPB STA (14:03)
--- NOTE | 2019-03-06 14:04 | P.HPIM ---
History of Present Illness 32-year-old male came in with diffuse abdominal pain moderate severity sharp in nature. Patient is found to have fever prior possible spot has back hepatitis patient denied any dysuria no evidence of pneumonia on the chest x-ray. Patient has been drinking until 4:30 today morning. Patient is has history of chronic alcoholism does have cirrhosis history denied any shortness of breath dysuria nausea vomiting. Review of Systems REVIEW OF SYSTEMS: CONSTITUTIONAL: No fever, no malaise, no fatigue. HEENT: No recent visual problems or hearing problems. Denied any sore throat. CARDIOVASCULAR: No chest pain, orthopnea, PND, no palpitations, no syncope. PULMONARY: No shortness of breath, no cough, no hemoptysis. GASTROINTESTINAL: As mentioned in HPI NEUROLOGICAL: No headaches, no weakness, no numbness. HEMATOLOGICAL: Denies any bleeding or petechiae. GENITOURINARY: Denies any burning micturition, frequency, or urgency. MUSCULOSKELETAL/RHEUMATOLOGICAL: Denies any joint pain, swelling, or any muscle pain. ENDOCRINE: Denies any polyuria or polydipsia. The rest of the 14-point review of systems is negative. 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 He does not drive but states he is able to get rides to [facility]. Pt works at [employer]. Pt was admitted on 03/15/18 and at that time pt stated he is afraid if he left the hospital that he might drink himself to . When asked at that time if he would do that on purpose, he stated "I am not sure." He was seen by psych. Today, pt states he is not suicidal or homicidal. Smoking Status: Current every day smoker Past Alcohol Use History: Abuse, Daily Additional Past Alcohol Use History / Comment(s): Pt started smoking in 1998 and is a 0.25 ppd smoker. Past Drug Use History: Heroin, IV Drug Use, Marijuana Additional Drug Use History / Comment(s): CLEAN FROM HEROIN FOR ALMOST 3.5 YEARS - Past Family History Father Family Medical History: No Reported History Additional Family Medical History / Comment(s): Father is a heroin addict now on methadone. Mother Family Medical History: Hypertension Medications and Allergies Home Medications Medication Instructions Recorded Confirmed Type Dextroamphetamine/Amphetamine 30 mg PO BID 07/24/18 03/06/19 History [Adderall] Metoprolol Tartrate [Lopressor] 50 mg PO BID 07/24/18 03/06/19 History Allergies Allergy/AdvReac Type Severity Reaction Status Date / Time No Known Allergies Allergy Verified 03/06/19 09:44 Physical Exam Vitals: Vital Signs Temp Pulse Resp BP Pulse Ox 03/06/19 13:00 98.8 F 114 H 18 128/61 96 03/06/19 12:30 140/78 96 03/06/19 12:00 118 H 18 150/82 95 03/06/19 11:30 108 H 18 137/92 96 03/06/19 11:00 99.8 F H 112 H 18 149/96 97 03/06/19 10:30 131/79 03/06/19 10:00 18 158/89 96 03/06/19 09:38 100.6 F H 142 H 22 129/77 94 L Intake and Output 03/05/19 03/06/19 03/06/19 22:59 06:59 14:59 Other: Weight 91.626 kg PHYSICAL EXAMINATION: GENERAL: The patient is alert and oriented x3, not in any acute distress. Obese jaundiced HEENT: Pupils are round and equally reacting to light. EOMI. does have scleral icterus. No conjunctival pallor. Normocephalic, atraumatic. No pharyngeal erythema. No thyromegaly. CARDIOVASCULAR: S1 and S2 present. No murmurs, rubs, or gallops. PULMONARY: Chest is clear to auscultation, no wheezing or crackles. ABDOMEN: Distended, shifting dullness tenderness in the abdomen MUSCULOSKELETAL: No joint swelling or deformity. EXTREMITIES: No cyanosis, clubbing, or pedal edema. NEUROLOGICAL: Gross neurological examination did not reveal any focal deficits. SKIN: No rashes. Results CBC & Chem 7: 03/06/19 09:55 03/06/19 09:55 Labs: Abnormal Lab Results - Last 24 Hours (Table) 03/06/19 03/06/19 03/06/19 Range/Units 09:55 09:55 09:55 RBC 3.03 L (4.30-5.90) m/uL Hgb 10.9 L (13.0-17.5) gm/dL Hct 35.6 L (39.0-53.0) % MCV 117.2 H (80.0-100.0) fL MCH 35.8 H (25.0-35.0) pg MCHC 30.5 L (31.0-37.0) g/dL Macrocytosis Marked A PT (9.0-12.0) sec INR (<1.2) APTT (22.0-30.0) sec Potassium 3.4 L (3.5-5.1) mmol/L Carbon Dioxide 21 L (22-30) mmol/L BUN 4 L (9-20) mg/dL Plasma Lactic Acid Niko 2.6 H* (0.7-2.0) mmol/L Calcium 7.9 L (8.4-10.2) mg/dL Total Bilirubin 15.1 H* (0.2-1.3) mg/dL AST 246 H (17-59) U/L Albumin 2.7 L (3.5-5.0) g/dL 03/06/19 Range/Units 09:55 RBC (4.30-5.90) m/uL Hgb (13.0-17.5) gm/dL Hct (39.0-53.0) % MCV (80.0-100.0) fL MCH (25.0-35.0) pg MCHC (31.0-37.0) g/dL Macrocytosis PT 17.7 H (9.0-12.0) sec INR 1.8 H (<1.2) APTT 30.7 H (22.0-30.0) sec Potassium (3.5-5.1) mmol/L Carbon Dioxide (22-30) mmol/L BUN (9-20) mg/dL Plasma Lactic Acid Niko (0.7-2.0) mmol/L Calcium (8.4-10.2) mg/dL Total Bilirubin (0.2-1.3) mg/dL AST (17-59) U/L Albumin (3.5-5.0) g/dL Thrombosis Risk Factor Assmnt - Choose All That Apply Each Factor Represents 1 point: Sepsis (< 1month) Thrombosis Risk Factor Assessment Total Risk Factor Score: 1 Thrombosis Risk Factor Assessment Level: Low Risk Assessment and Plan Plan: -Severe sepsis: Secondary to spontaneous bacterial peritonitis. We will obtain diagnostic and therapeutic paracentesis. Patient was started on Rocephin patient will need IV fluids because of lactic acidosis in spite of ascites. -Alcoholic cirrhosis with acute alcoholic hepatitis and jaundice: Jaundice is e xpected to improve some with cessation of alcohol extensive alcohol cessation counseling was provided. -Hypokalemia potassium will be supplemented -Coagulopathy secondary to liver disease, patient's present INR is 1.8 since patient will undergo paracentesis will order IV vitamin K. -Tachycardia from sepsis and reflux tachycardia from beta jean-pierre. Beta jean-pierre will be resumed patient will be continued on IV fluids. Alcohol withdrawal: Patient was started on Ativan seemed to be protocol. -Patient will not require any additional DVT prophylaxis as patient is auto anticoagulated
[2019-03-06] MEDS: LORazepam 2 MG/ML INJ IV PRN ×5 (14:34→23:22)
[2019-03-06 14:56] LABS: Amorphous Sediment,Urine Rare /hpf; Appearance,Urine Cloudy (Clear); Bacteria,Urine Rare /hpf; Bilirubin,Urine 4+ (Negative); Blood,Urine Negative (Negative); Cellular Casts,Urine 12 /lpf (0); Color,Urine Dark Brown; Glucose,Urine (UA) Negative (Negative); Hyaline Casts,Urine 12 /lpf (0-2); Ketones,Urine Negative (Negative); Leukocyte Esterase,Urine Trace (Negative); Mucus,Urine Many /hpf; Nitrite,Urine Negative (Negative); Protein,Urine 1+ (Negative); Specific Gravity,Urine 1.025 (1.001-1.035); Squamous Epithelial Cell,Urine 1 /hpf (0-4)
[2019-03-06] MEDS: THIAMINE 100 MG TAB PO SCH (17:10)
[2019-03-06] MEDS: METOPROLOL TARTRATE 50 MG TAB PO SCH (20:40)
[2019-03-06] MEDS: FAMOTIDINE 20 MG TAB PO SCH (20:40)
[2019-03-06] MEDS ORDERED: HYDROmorphone 0.5 MG/0.5 ML SYRINGE IVP PRN (21:03)
[2019-03-06] MEDS: NICOTINE 14MG/24HR PATCH TRANSDERM SCH (21:38)
[2019-03-07] MEDS: LORazepam 2 MG/ML INJ IV PRN ×24 (01:15→20:48)
[2019-03-07] MEDS: ONDANSETRON 4 MG/2 ML VIAL IVP PRN ×2 (04:16→08:16)
[2019-03-07 04:47] LABS: Glucose,Whole Blood 93 mg/dL (75-99)
[2019-03-07 06:02] LABS: HCT 33.4 % (39.0-53.0); HGB 10.3 gm/dL (13.0-17.5); Hypochromasia Marked; MCH 36.9 pg (25.0-35.0); MCHC 30.9 g/dL (31.0-37.0); MCV 119.4 fL (80.0-100.0); Macrocytosis Marked; Mean Platelet Volume 6.8; Platelet Count 274 k/uL (150-450); RDW 14.8 % (11.5-15.5); WBC 11.6 k/uL (3.8-10.6)
[2019-03-07 06:18] LABS: ALT 29 U/L (21-72); AST 225 U/L (17-59); African American GFR (CKD) >90 (>60 ml/min/1.73 sqM); Albumin 2.4 g/dL (3.5-5.0); Alkaline Phosphatase 148 U/L (38-126); Anion Gap 7 mmol/L; Blood Urea Nitrogen 7 mg/dL (9-20); Calcium 7.5 mg/dL (8.4-10.2); Carbon Dioxide 24 mmol/L (22-30); Chloride 110 mmol/L (98-107); Glucose 95 mg/dL (74-99); Non-African American GFR(CKD) >90 (>60 ml/min/1.73 sqM); Potassium 3.7 mmol/L (3.5-5.1); Sodium 141 mmol/L (137-145); Total Bilirubin 13.9 mg/dL (0.2-1.3); Total Protein 5.9 g/dL (6.3-8.2)
--- NOTE | 2019-03-07 08:05 | P.PN ---
Subjective Progress Note Date: 03/07/19 Principal diagnosis: This continue present 33-year-old white male essentially with history of alcoholism with right gnosis [place] [employer] peritonitis. The patient states over the last week he's probably had about 100 shots of liquor. He also has an underlying history of ADD but has not been getting any type of stimulant medication for many because of the ethanol use. He states his abdominal pain is improving. Appreciate multiple consultants. No significant nausea, vomiting or diarrhea stated. Objective - Vital Signs Vital signs: Vital Signs Temp 100.6 F H 03/07/19 05:00 Pulse 97 03/07/19 06:00 Resp 24 03/07/19 06:00 BP 121/67 03/07/19 06:00 Pulse Ox 97 03/07/19 06:00 Intake & Output 03/06/19 03/07/19 03/07/19 18:59 06:59 18:59 Intake Total 222 Balance 222 Weight 91.626 kg 108 kg Intake: Oral 222 Other: Voiding Method Toilet Indwelling Catheter Urinal - Constitutional General appearance: Present: cooperative, obese - EENT Eyes: Absent: abnormal pupil - Neck Neck: Absent: lymphadenopathy - Respiratory Respiratory: bilateral: CTA - Cardiovascular Rhythm: regular Heart sounds: normal: S1, S2 Abnormal Heart Sounds: Absent: S3 Gallop - Gastrointestinal General gastrointestinal: Present: distended. Absent: tenderness - Neurologic Neurologic: Present: CNII-XII intact. Absent: focal deficits - Labs CBC & Chem 7: 03/07/19 05:06 03/07/19 05:06 Labs: Abnormal Lab Results - Last 24 Hours (Table) 03/06/19 03/06/19 03/06/19 Range/Units 09:55 09:55 09:55 WBC (3.8-10.6) k/uL RBC 3.03 L (4.30-5.90) m/uL Hgb 10.9 L (13.0-17.5) gm/dL Hct 35.6 L (39.0-53.0) % MCV 117.2 H (80.0-100.0) fL MCH 35.8 H (25.0-35.0) pg MCHC 30.5 L (31.0-37.0) g/dL Macrocytosis Marked A PT (9.0-12.0) sec INR (<1.2) APTT (22.0-30.0) sec Potassium 3.4 L (3.5-5.1) mmol/L Chloride (98-107) mmol/L Carbon Dioxide 21 L (22-30) mmol/L BUN 4 L (9-20) mg/dL Plasma Lactic Acid Niko 2.6 H* (0.7-2.0) mmol/L Calcium 7.9 L (8.4-10.2) mg/dL Total Bilirubin 15.1 H* (0.2-1.3) mg/dL AST 246 H (17-59) U/L Alkaline Phosphatase (38-126) U/L Total Protein (6.3-8.2) g/dL Albumin 2.7 L (3.5-5.0) g/dL Urine Protein (Negative) Urine Bilirubin (Negative) Ur Leukocyte Esterase (Negative) Amorphous Sediment (None) /hpf Urine Bacteria (None) /hpf Hyaline Casts (0-2) /lpf Urine Mucus (None) /hpf 03/06/19 03/06/19 03/07/19 Range/Units 09:55 14:38 05:06 WBC 11.6 H (3.8-10.6) k/uL RBC 2.80 L (4.30-5.90) m/uL Hgb 10.3 L (13.0-17.5) gm/dL Hct 33.4 L (39.0-53.0) % MCV 119.4 H (80.0-100.0) fL MCH 36.9 H (25.0-35.0) pg MCHC 30.9 L (31.0-37.0) g/dL Macrocytosis Marked A PT 17.7 H (9.0-12.0) sec INR 1.8 H (<1.2) APTT 30.7 H (22.0-30.0) sec Potassium (3.5-5.1) mmol/L Chloride (98-107) mmol/L Carbon Dioxide (22-30) mmol/L BUN (9-20) mg/dL Plasma Lactic Acid Niko (0.7-2.0) mmol/L Calcium (8.4-10.2) mg/dL Total Bilirubin (0.2-1.3) mg/dL AST (17-59) U/L Alkaline Phosphatase (38-126) U/L Total Protein (6.3-8.2) g/dL Albumin (3.5-5.0) g/dL Urine Protein 1+ H (Negative) Urine Bilirubin 4+ H (Negative) Ur Leukocyte Esterase Trace H (Negative) Amorphous Sediment Rare H (None) /hpf Urine Bacteria Rare H (None) /hpf Hyaline Casts 12 H (0-2) /lpf Urine Mucus Many H (None) /hpf 03/07/19 Range/Units 05:06 WBC (3.8-10.6) k/uL RBC (4.30-5.90) m/uL Hgb (13.0-17.5) gm/dL Hct (39.0-53.0) % MCV (80.0-100.0) fL MCH (25.0-35.0) pg MCHC (31.0-37.0) g/dL Macrocytosis PT (9.0-12.0) sec INR (<1.2) APTT (22.0-30.0) sec Potassium (3.5-5.1) mmol/L Chloride 110 H (98-107) mmol/L Carbon Dioxide (22-30) mmol/L BUN 7 L (9-20) mg/dL Plasma Lactic Acid Niko (0.7-2.0) mmol/L Calcium 7.5 L (8.4-10.2) mg/dL Total Bilirubin 13.9 H (0.2-1.3) mg/dL AST 225 H (17-59) U/L Alkaline Phosphatase 148 H (38-126) U/L Total Protein 5.9 L (6.3-8.2) g/dL Albumin 2.4 L (3.5-5.0) g/dL Urine Protein (Negative) Urine Bilirubin (Negative) Ur Leukocyte Esterase (Negative) Amorphous Sediment (None) /hpf Urine Bacteria (None) /hpf Hyaline Casts (0-2) /lpf Urine Mucus (None) /hpf Assessment and Plan (1) Alcoholism Current Visit: Yes Status: Acute Code(s): F10.20 - ALCOHOL DEPENDENCE, UNCOMPLICATED SNOMED Code(s): 4240614 (2) Jaundice Current Visit: No Status: Acute Code(s): R17 - UNSPECIFIED JAUNDICE SNOMED Code(s): 93728972 Plan: Supportive care. CIWA, with Ativan. Appreciate multiple consultants input. New Check CBC CMP in a.m. Make sure that the patient has vitamin B12 and folate/thiamine on board. Question need for psychiatric consult Time with Patient: Greater than 30
[2019-03-07] MEDS: NICOTINE 14MG/24HR PATCH TRANSDERM SCH (09:17)
--- NOTE | 2019-03-07 09:39 | US ---
EXAMINATION TYPE: US abdomen limited DATE OF EXAM: 03/07/2019 COMPARISON: NONE CLINICAL HISTORY: please assess for fluid pocket. distended abd on ICU patient TECHNIQUE/FINDINGS: Limited ultrasound was performed to evaluate for ascites. Grayscale imaging was u tilized. Only mild degree perihepatic ascites and right lower quadrant ascites are seen. Fluid is ins ufficient for paracentesis at this time. No fluid in the left lower quadrant or left upper quadrant. IMPRESSION: Mild perihepatic and right lower quadrant ascites, insufficient for paracentesis at this time.
--- NOTE | 2019-03-07 11:05 | ECHOF ---
Referral Reason:To assess LV function MEASUREMENTS -------- HEIGHT: 167.6 cm WEIGHT: 108.0 kg BP: 126/74 RVIDd: 3.4 cm (< 3.3) IVSd: 1.0 cm (0.6 - 1.1) LVIDd: 4.4 cm (3.9 - 5.3) LVPWd: 1.2 cm (0.6 - 1.1) IVSs: 1.7 cm LVIDs: 2.9 cm LVPWs: 1.7 cm LA Diam: 3.9 cm (2.7 - 3.8) LAESV Index (A-L): 16.29 ml/m Ao Diam: 3.2 cm (2.0 - 3.7) AV Cusp: 2.4 cm (1.5 - 2.6) MV EXCURSION: 18.048 mm (> 18.000) MV EF SLOPE: 203 mm/s (70 - 150) EPSS: 0.4 cm MV E Dhaval: 1.09 m/s MV DecT: 157 ms MV A Dhaval: 0.67 m/s MV E/A Ratio: 1.63 RAP: 5.00 mmHg RVSP: 28.15 mmHg TAPSE: 18.07 mm FINDINGS -------- Sinus rhythm. This was a technically adequate study. The left ventricular size is normal. There is borderline concentric left ventricular hypertrophy. Overall left ventricular systolic function is normal with, an EF between 60 - 65 %. The right ventricle is normal in size. Normal LA size by volume 22+/-6 ml/m2. The right atrium is normal in size. Interatrial and interventricular septum intact. The aortic valve is trileaflet and appears structurally normal. The mitral valve is normal. Mild tricuspid regurgitation present. Right ventricular systolic pressure is normal at < 35 mmHg. Trace/mild (physiologic) pulmonic regurgitation. The aortic root size is normal. No subcostals at this time There is no pericardial effusion. CONCLUSIONS -------- 1. Sinus rhythm. 2. This was a technically adequate study. 3. The left ventricular size is normal. 4. There is borderline concentric left ventricular hypertrophy. 5. Overall left ventricular systolic function is normal with, an EF between 60 - 65 %. 6. The right ventricle is normal in size. 7. Normal LA size by volume 22+/-6 ml/m2. 8. The right atrium is normal in size. 9. Interatrial and interventricular septum intact. 10. The aortic valve is trileaflet and appears structurally normal. 11. The mitral valve is normal. 12. Mild tricuspid regurgitation present. 13. Right ventricular systolic pressure is normal at < 35 mmHg. 14. Trace/mild (physiologic) pulmonic regurgitation. 15. The aortic root size is normal. 16. No subcostals at this time 17. There is no pericardial effusion. GYPSUM BLOCK SETTER: Ansley Fink RDCS
--- NOTE | 2019-03-07 11:17 | CONS ---
CONSULTATION PULMONARY/CRITICAL CARE CONSULTATION: DATE OF CONSULTATION: 03/07/2019 This is that 33-year-old gentleman who was recently discharged from the hospital on March 03. He was then readmitted on March 06, 2019. The patient apparently presented to the emergency department with complaints of abdominal pain and chest pain as well as dizziness. The patient has a history of significant alcohol abuse. He apparently came into the emergency room complaining of feeling weak and complaining of diffuse abdominal discomfort and chest pain. He apparently has been drinking up until just about the time he presented to the emergency department. He states he had body aches all over and just did not feel well. He denied any trauma. He denied shortness of breath. He does admit to some lower extremity edema, which is worsened recently. He denied any headache. No neurologic complaints. The patient had been having diarrhea on and off for about 7 months. The patient has extensive medical history including possible spontaneous bacterial peritonitis, ascites, chronic alcohol abuse, previous history of heroin abuse, hepatitis C, hypertension, chronic tobacco use, anxiety/depression, and B12 deficiency. The patient's primary is Dr. Reynolds. The patient is quite jaundiced with a bilirubin room of 13.9. I have asked the nurse to check an ammonia level. Currently, he is not receiving any supplemental oxygen. Not receiving any IV. The patient was to have a paracentesis abdominis today. HOME MEDICATIONS: His home medications include Adderall and Lopressor. ALLERGIES: Denied. PAST MEDICAL HISTORY: As mentioned includes hypertension, hepatitis C, chronic alcoholic liver disease, pneumonia, chronic alcohol abuse and alcoholic hepatitis, B12 deficiency, previous history of IVDA with heroin, but apparently none in the last 3 years, as well as anxiety/depression. SURGICAL HISTORY: Unremarkable. SOCIAL HISTORY: Positive for chronic alcohol abuse on a daily basis and current ongoing tobacco use. He has also had to use illicit drugs in the past including heroin and marijuana. FAMILY HISTORY: Apparently positive for a father who was a heroin addict, now on methadone. Mother has a history of hypertension. REVIEW OF SYSTEMS: Cannot be accurately obtained. CONSTITUTIONAL: Weakness. NEUROLOGIC: Negative. HEENT: Negative. CARDIOVASCULAR: Negative. PULMONARY: Negative. GI: Abdominal discomfort. : Negative. RHEUMATOLOGIC: Negative. IMMUNOLOGIC: Negative. ENDOCRINOLOGIC: Negative. DERMATOLOGIC: Negative. PHYSICAL EXAMINATION: Current vital signs are reviewed. Temperature is 98.3, heart rate is 90, respiratory rate 20, blood pressure 113/70 with a mean of 84, room air saturation 95%. Appears in no acute distress. HEENT: Examination is grossly unremarkable. Mucous membranes are dry. He has significant scleral icterus. NECK: Examination reveals the neck to be supple, full range of motion. No adenopathy or thyromegaly. Neck veins are flat. CARDIOVASCULAR: Examination reveals regular rhythm and rate. Heart rate 90. S1, S2 normal. No S3, S4, or murmur. LUNGS: Reveal mostly clear breath sounds. A few scattered rhonchi. ABDOMEN: Obese. Mildly distended and minimally tympanitic. Mild tenderness on palpation. Not a surgical abdomen. EXTREMITIES: Reveal them to be normal. Mild edema. No cyanosis or clubbing. SKIN: Reveals significant jaundice with a bilirubin of 13.9. NEUROLOGIC: Examination is difficult to assess. He is somewhat lethargic but does arouse. He does answer questions appropriately. I did ask the nurse to check an ammonia level. LAB DATA: Reviewed. White count 11.6, hemoglobin 10.3, hematocrit 33.4, platelet count 374, 000, sodium, potassium normal, chloride is 110, CO2 is 24, anion gap is 7. BUN and creatinine were 7 and 0.84. Calcium 7.5, bilirubin 13.9, AST 225, ALT 29, alkaline phosphatase 148, ammonia 71, albumin 2.4. Urine is dark brown and cloudy, pH 6.0, specific gravity 1.025, 1+ protein, 4+ bilirubin, trace leukocyte esterase, 1 WBC, 1 squamous epithelial cell, and rare urine bacteria. A chest x-ray was normal. Medications are reviewed. Currently, he is on Rocephin, Pepcid, Dilaudid, Ativan, metoprolol, nicotine patch, Zofran, thiamin, and tramadol. We need to add some lactulose to his regimen. ASSESSMENT: 1. Severe alcoholic liver disease with possible spontaneous bacterial peritonitis. 2. History of alcoholic hepatitis. 3. History of chronic alcohol abuse. 4. Previous history of IV heroin use. 5. History of hepatitis C. 6. History of hypertension. 7. Ongoing tobacco use, rule out chronic obstructive pulmonary disease. 8. History of anxiety/depression. 9. Ascites. 10.Vitamin B12 deficiency. 11.Mild anemia. 12.Severe hyperbilirubinemia. 13.Hyperammonemia. PLAN: Will add lactulose to the regimen. Possible paracentesis today. The patient is on appropriate antibiotics. Will continue to follow. Prognosis is very poor. No additional recommendations are made. MMODL / IJN: [id number] /
[2019-03-07] MEDS ORDERED: SODIUM CHLORIDE 0.9% 1,000 ML IV SCH (12:00)
[2019-03-07] MEDS: metroNIDAZOLE-NS PMX 500 MG in SALINE 1 100ML.BAG IVPB SCH ×2 (12:52→18:51)
[2019-03-07] MEDS: METOPROLOL TARTRATE 50 MG TAB PO SCH ×2 (16:29→19:44)
[2019-03-07] MEDS: THIAMINE 100 MG TAB PO SCH ×2 (16:29→17:13)
[2019-03-07] MEDS: FAMOTIDINE 20 MG TAB PO SCH ×2 (16:29→19:44)
[2019-03-07] MEDS: LACTULOSE 20 GM/30 ML CUP PO SCH ×2 (16:43→19:44)
[2019-03-07] MEDS: SODIUM CHLORIDE 0.9% 1,000 ML IV SCH (16:44)
[2019-03-07] MEDS ORDERED: HALOPERIDOL LACTATE 5 MG/ML 1 ML VIAL IVP ONE (18:35)
--- NOTE | 2019-03-07 21:55 | CONS ---
CONSULTATION Mr. Dex Sánchez is a 33-year-old gentleman with history of acute alcoholism. I was asked to see him because of some chest pain. He was hospitalized recently with acute alcoholic intoxication, discharged and came back again with a similar problem, was given a lot of high doses of Ativan, NSAID and sedation and then transferred to ICU. He complains of abdominal discomfort. There is distention, possibly ascites. There is a question of bacterial peritonitis. I was asked to see him because of chest pain. On questioning, patient denies any chest pain; it is mostly abdominal pain. He is slightly tachycardic but otherwise in no major distress. His troponin is normal. He is resting comfortably. He does have abdominal discomfort and there is tenderness. PAST MEDICAL HISTORY: This is remarkable for alcoholism with liver disease, alcoholic hepatitis, pneumonia and recurrent admissions with alcohol withdrawal. MEDICATIONS: He takes metoprolol 50 mg b.i.d. and Adderall. ALLERGIES: NONE. PHYSICAL EXAMINATION: Blood pressure is 130/70, pulse rate 90 per minute. HEENT unremarkable. Fundus was not examined by me. Neck is supple. No JVD. No carotid bruit. Heart exam reveals S1, S2 heard normally. Slightly tachycardic. No significant murmurs. Lungs reveal decent air entry. Abdomen is distended, tender. There is ascites also. Lower extremities reveal diminished pulses. Central nervous system is normal. EKG revealed sinus mechanism, sinus tachycardia, no acute changes. IMPRESSION: 1. No evidence of any chest pain. 2. Probable bacterial peritonitis. 3. Recurrent episodes of alcoholism. Patient will need some alcohol rehab. RECOMMENDATIONS: No intervention from a cardiac standpoint. I will recommend an echocardiogram, and if this is normal, no further intervention would be necessary and I will see the patient as needed. Thank you very much for the consult. MMODL / IJN: [id number] /
[2019-03-07] MEDS ORDERED: PHYTONADIONE 10 MG in SODIUM CHLORIDE 0.9% 50 ML IVPB STA (22:40)
--- NOTE | 2019-03-07 22:40 | P.CONS ---
History of Present Illness - Reason for Consult Consult date: 03/07/19 Elevated liver enzymes, alcoholic liver disease, hepatitis C Requesting physician: Mars Reynolds - Chief Complaint Abdominal pain, weakness, jaundice - History of Present Illness 33-year-old male with a medical history significant for ascites, chronic alcohol abuse, previous IV drug abuse, hepatitis C, hypertension, tobacco abuse, anxiety/depression, B12 deficiency and chronic liver disease who presented to the hospital with complaints of abdominal pain, chest pain and dizziness. The patient is currently actively drinking alcohol and has abuse alcohol for over 20 years. He reports diffuse abdominal pain across his abdomen described as sharp and constant. Denies any prior episodes of similar abdominal pain. Denies any prior endoscopic evaluation with either EGD or colonoscopy. The patient denies requiring paracentesis in the past. On presentation to the hospital laboratory evaluation was significant for a total bilirubin 13.9, alkaline phosphatase 148, AST 225, ALTs 29, WBC 11.6, hemoglobin 10.3 with MCV 119, platelet count 224,000, INR 1.8 with testing for Clostridium difficile positive and ammonia level elevated greater than 70. Ultrasound of the abdomen did show ascites but no pockets large enough to be tapped. Review of Systems . ROS unobtainable: due to mental status (Patient currently receiving benzodiazepine therapy for alcohol withdrawals and is somnolent and unable to provide review of systems) 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, History of Any Multi-Drug Resistant Organisms: None Reported Past Surgical History: No Surgical Hx Reported Past Anesthesia/Blood Transfusion Reactions: No Reported Reaction Past Psychological History: Anxiety, Depression Additional Psychological History / Comment(s): Pt resides with his grandparents. He does not drive but states he is able to get rides to [employer]. Pt works at [employer]. Pt was admitted on 03/15/18 and at that time pt stated he is afraid if he left the hospital that he might drink himself to . When asked at that time if he would do that on purpose, he stated "I am not sure." He was seen by psych. Today, pt states he is not suicidal or homicidal. Smoking Status: Current every day smoker Past Alcohol Use History: Abuse, Daily Additional Past Alcohol Use History / Comment(s): Pt started smoking in 1998 and is a 0.25 ppd smoker. Past Drug Use History: Heroin, IV Drug Use, Marijuana Additional Drug Use History / Comment(s): CLEAN FROM HEROIN FOR ALMOST 3.5 YEARS - Past Family History Father Family Medical History: No Reported History Additional Family Medical History / Comment(s): Father is a heroin addict now on methadone. Mother Family Medical History: Hypertension Medications and Allergies Home Medications Medication Instructions Recorded Confirmed Type Dextroamphetamine/Amphetamine 30 mg PO BID 07/24/18 03/06/19 History [Adderall] Metoprolol Tartrate [Lopressor] 50 mg PO BID 07/24/18 03/06/19 History Allergies Allergy/AdvReac Type Severity Reaction Status Date / Time No Known Allergies Allergy Verified 03/06/19 09:44 Physical Exam Vitals: Vital Signs Temp Pulse Pulse Resp BP BP Pulse Ox 03/07/19 22:00 90 24 124/67 97 03/07/19 21:00 88 30 H 143/76 99 03/07/19 20:00 98.3 F 104 H 21 134/71 100 03/07/19 19:00 102 H 22 117/66 100 03/07/19 18:00 106 H 25 H 140/78 96 03/07/19 17:00 104 H 33 H 138/75 96 03/07/19 16:00 98.3 F 103 H 28 H 135/81 96 03/07/19 15:00 102 H 20 127/73 96 03/07/19 14:00 101 H 21 134/74 95 03/07/19 13:00 105 H 10 L 131/83 94 L 03/07/19 12:00 98.3 F 106 H 36 H 130/81 94 L 03/07/19 11:00 100 22 126/74 96 03/07/19 10:00 98 23 124/70 97 03/07/19 09:00 98 26 H 129/78 96 03/07/19 08:00 98.3 F 20 113/70 95 03/07/19 07:00 98 30 H 125/68 95 03/07/19 06:00 97 24 121/67 97 03/07/19 05:00 100.6 F H 101 H 22 124/69 96 10/07/19 03:09 98.3 F 98 20 121/60 98 03/07/19 00:00 97.3 F L 107 H 18 132/61 97 Intake and Output 03/07/19 03/07/19 03/07/19 06:59 14:59 22:59 Intake Total 0 330 750 Output Total 100 225 Balance 0 230 525 Intake: IV 80 Normal Saline 0.9% 80 Intake, IV Titration 250 750 Amount Sodium Chloride 0.9% 1, 700 000 ml @ 100 mls/hr IV . Q10H DANILO Rx#:[id number] Sodium Chloride 0.9% 1, 150 50 000 ml @ 50 mls/hr IV . Q20H DANILO Rx#:[id number] metroNIDAZOLE-NS PMX 500 100 mg In Saline 1 100ml.bag @ 100 mls/hr IVPB Q8H DANILO Rx#:[id number] Oral 0 Output: Urine 100 225 Other: Voiding Method Toilet Indwelling Catheter Indwelling Catheter Urinal # Voids 1 1 # Bowel Movements 1 0 Weight 108 kg On physical examination, patient appears comfortable in no apparent distress. HEAD: Normocephalic, atraumatic. EYES: Scleral icterus. No conjunctival injection. MOUTH: No lesions, tongue midline. NECK: Trachea midline, no gross abnormalities. CHEST: Clear to auscultation with no wheezing or rhonchi appreciated. HEART: Regular rate and rhythm. ABDOMEN: Soft, diffusely tender to palpation. Bowel sounds are positive. No organomegaly. No guarding or rigidity. EXTREMITIES: No pedal edema. SKIN: No rashes, jaundice. NEUROLOGIC: Alert but somnolent currently receiving benzodiazepine therapy for occult withdrawals Results CBC & Chem 7: 03/07/19 05:06 03/07/19 05:06 Labs: Abnormal Lab Results - Last 24 Hours (Table) 03/07/19 03/07/19 03/07/19 Range/Units 05:06 05:06 07:43 WBC 11.6 H (3.8-10.6) k/uL RBC 2.80 L (4.30-5.90) m/uL Hgb 10.3 L (13.0-17.5) gm/dL Hct 33.4 L (39.0-53.0) % MCV 119.4 H (80.0-100.0) fL MCH 36.9 H (25.0-35.0) pg MCHC 30.9 L (31.0-37.0) g/dL Macrocytosis Marked A Chloride 110 H (98-107) mmol/L BUN 7 L (9-20) mg/dL Calcium 7.5 L (8.4-10.2) mg/dL Total Bilirubin 13.9 H (0.2-1.3) mg/dL AST 225 H (17-59) U/L Alkaline Phosphatase 148 H (38-126) U/L Ammonia 71 H (<30) umol/L Total Protein 5.9 L (6.3-8.2) g/dL Albumin 2.4 L (3.5-5.0) g/dL C. difficile (EIA) Intrp (Negative) 03/07/19 Range/Units 10:00 WBC (3.8-10.6) k/uL RBC (4.30-5.90) m/uL Hgb (13.0-17.5) gm/dL Hct (39.0-53.0) % MCV (80.0-100.0) fL MCH (25.0-35.0) pg MCHC (31.0-37.0) g/dL Macrocytosis Chloride (98-107) mmol/L BUN (9-20) mg/dL Calcium (8.4-10.2) mg/dL Total Bilirubin (0.2-1.3) mg/dL AST (17-59) U/L Alkaline Phosphatase (38-126) U/L Ammonia (<30) umol/L Total Protein (6.3-8.2) g/dL Albumin (3.5-5.0) g/dL C. difficile (EIA) Intrp Positive A (Negative) Microbiology - Last 24 Hours (Table) 03/06/19 09:55 Blood Culture - Preliminary Blood No Growth after 24 hours US - abdomen: report reviewed (Ultrasound abdomen significant for pockets of ascites, however not enough fluid for paracentesis) Assessment and Plan (1) Alcoholic hepatitis Narrative/Plan: 33-year-old male with multiple medical comorbidities including chronic hepatitis C, alcoholic liver disease, alcohol abuse who presented due to abdominal pain, and weakness. Patient currently receiving treatment for suspected spontaneous b acterial peritonitis. A ascites was seen on ultrasound, however not enough for paracentesis. The patient has elevation in liver enzymes in both a cholestatic and hepatocellular pattern consistent with acute alcoholic hepatitis. Currently receiving treatment in the intensive care unit on protocol for alcohol withdrawal. Testing for C. diff was also positive. Current Visit: No Status: Acute Code(s): K70.10 - ALCOHOLIC HEPATITIS WITHOUT ASCITES SNOMED Code(s): 470764508 (2) Alcohol withdrawal Current Visit: Yes Status: Acute Code(s): F10.239 - ALCOHOL DEPENDENCE WITH WITHDRAWAL, UNSPECIFIED SNOMED Code(s): 272471820 (3) Chronic alcohol dependence, continuous Current Visit: No Status: Acute Code(s): F10.20 - ALCOHOL DEPENDENCE, UNCOMPLICATED SNOMED Code(s): 970810613 (4) Hyperbilirubinemia Current Visit: No Status: Acute Code(s): E80.6 - OTHER DISORDERS OF BILIRUBIN METABOLISM SNOMED Code(s): 70031786 (5) Transaminitis Current Visit: No Status: Acute Code(s): R74.0 - NONSPEC ELEV OF LEVELS OF TRANSAMNS & LACTIC ACID DEHYDRGNSE SNOMED Code(s): 101225089 Plan: Supportive care Okay for diet as tolerated Continue to monitor CBC, CMP, INR Vancomycin every 6 hours by mouth for Clostridium difficile Rifaximin added for suspected hepatic encephalopathy with patient noted to have elevated ammonia level Alcohol abstinence Vitamin K for coagulopathy likely secondary to cholestasis and vitamin K malabsorption ICU care Thank you for allowing us to participate in the care of the patient we will continue to follow
[2019-03-07] MEDS: VANCOMYCIN ORAL SOLUTION 250 MG/5 ML BOTTLE PO SCH (23:34)
[2019-03-07] MEDS: CHERRY FLAVOR 60 ML BOTTLE PO SCH (23:34)
[2019-03-08] MEDS: LORazepam 2 MG/ML INJ IV PRN ×12 (00:38→22:00)
[2019-03-08] MEDS ORDERED: HALOPERIDOL LACTATE 5 MG/ML 1 ML VIAL IVP ONE (01:50)
[2019-03-08] MEDS: CHERRY FLAVOR 60 ML BOTTLE PO SCH ×3 (03:47→19:50)
[2019-03-08] MEDS: VANCOMYCIN ORAL SOLUTION 250 MG/5 ML BOTTLE PO SCH ×3 (03:47→19:50)
[2019-03-08] MEDS: SODIUM CHLORIDE 0.9% 1,000 ML IV SCH ×3 (04:18→20:51)
[2019-03-08 05:54] LABS: HCT 35.6 % (39.0-53.0); Hypochromasia Marked; MCH 36.4 pg (25.0-35.0); MCHC 30.9 g/dL (31.0-37.0); Macrocytosis Marked; Mean Platelet Volume 6.6; Platelet Count 317 k/uL (150-450); RBC 3.03 m/uL (4.30-5.90); RDW 14.5 % (11.5-15.5); WBC 15.5 k/uL (3.8-10.6)
[2019-03-08 06:15] LABS: ALT 26 U/L (21-72); AST 211 U/L (17-59); African American GFR (CKD) >90 (>60 ml/min/1.73 sqM); Albumin 2.3 g/dL (3.5-5.0); Alkaline Phosphatase 125 U/L (38-126); Anion Gap 7 mmol/L; Bilirubin, Conjugated 6.6 mg/dL (0.0-0.3); Bilirubin, Delta 5.4 mg/dL (0.0-0.2); Bilirubin,Unconjugated 1.6 mg/dL (0.0-1.1); Blood Urea Nitrogen 7 mg/dL (9-20); Calcium 7.5 mg/dL (8.4-10.2); Carbon Dioxide 22 mmol/L (22-30); Chloride 110 mmol/L (98-107); Glucose 113 mg/dL (74-99); Non-African American GFR(CKD) >90 (>60 ml/min/1.73 sqM); Potassium 3.4 mmol/L (3.5-5.1); Sodium 139 mmol/L (137-145); Total Bilirubin 13.6 mg/dL (0.2-1.3)
[2019-03-08] MEDS ORDERED: Potassium Replacement Protocol 1 EACH MISC MISCELLANE PRN (06:22)
[2019-03-08 06:29] LABS: INR 1.7 (<1.2); Prothrombin Time 16.5 sec (9.0-12.0)
[2019-03-08] MEDS: POTASSIUM CHLORIDE 10 MEQ in WATER FOR INJECTION 1 100ML.BAG IVPB SCH ×4 (06:29→14:07)
[2019-03-08 06:31] LABS: MCV 117.5 fL (80.0-100.0)
--- NOTE | 2019-03-08 08:05 | PN ---
PROGRESS NOTE PULMONARY/CRITICAL CARE PROGRESS NOTE: DATE OF SERVICE: 03/08/2019 This is 33-year-old gentleman recently discharged from the hospital on March 03. He was readmitted on March 06, 2019. The patient came into the emergency room with complaints of abdominal pain, chest pain, and dizziness. He has a history of significant alcohol abuse and alcoholic liver disease. He is quite jaundiced. Anyway, the patient was admitted with a diagnosis of severe alcoholic liver disease with possible spontaneous bacterial peritonitis, alcoholic hepatitis, chronic alcohol abuse, previous history of IV heroin use, hepatitis C, hypertension, ongoing tobacco use, anxiety/depression, ascites, vitamin B12 deficiency, and mild anemia. The patient also had elevated ammonia level and a bilirubin level that was in excess of 13. Currently, he is receiving O2 at 2L. His IV saline is at 100 mL an hour. The patient has been quite agitated through the night. He has received both IV Ativan and Haldol. He was C diff positive. Currently, he himself cannot give any additional history because of mental status changes. PHYSICAL EXAMINATION: Current vital signs include a temperature of 98.5, heart rate 96, respiratory rate 24, blood pressure 121/76 mean 91, 2 L saturation 96%. Appears in no acute distress. HEENT: Examination is grossly unremarkable. Mucous membranes are dry. He is quite jaundiced. He has scleral icterus. NECK: Supple. Full range of motion. No adenopathy or thyromegaly. Neck veins are flat. CARDIOVASCULAR: Examination reveals regular rhythm and rate. Heart rate between 90 and 100 beats per minute. S1, S2 normal. No murmur. LUNGS: Reveal sonorous respirations. No wheezes. Breath sounds equal. ABDOMEN: Soft. Bowel sounds are heard. EXTREMITIES: Reveal no significant edema. No cyanosis or clubbing. SKIN: Reveals significant jaundice. NEUROLOGIC: Examination is difficult to assess given his poor mental status. He does arouse. LABS: Reviewed. White count 15.5, hemoglobin 11.0, hematocrit 35.6, platelet count 317,000. PT 16.5, INR 1.7. Sodium 139, potassium 3.4, chloride is 110, CO2 is 22, anion gap is 7, BUN and creatinine were 7 and 0.71. Calcium is 7.5, bilirubin is 13.6, AST is 211, ALT 26, albumin 2.3. C. diff was positive. No recent chest x-ray to report. Ultrasound of the belly showed some mild hepatic and right lower quadrant ascites, not amenable to paracentesis. Microbiology is currently pending or negative. Medications are reviewed. ASSESSMENT: 1. Severe alcoholic liver disease with possible spontaneous bacterial peritonitis. 2. History of alcoholic hepatitis. 3. History of chronic alcohol abuse. 4. Previous history of IV heroin use. 5. History of hepatitis C. 6. History of hypertension. 7. Ongoing tobacco use, rule out chronic obstructive pulmonary disease. 8. History of anxiety/depression. 9. Some mild ascites. 10.Vitamin B12 deficiency. 11.Mild anemia. 12.Hyperbilirubinemia, severe. 13.Hyperammonemia. PLAN: Paracentesis could not be performed because the ascitic fluid amount is small. His overall prognosis remains poor. I passed it on to the mother today. The patient has been quite agitated and remains on both IV Haldol and Ativan. He did test positive for C diff. Medications are reviewed. Prognosis is poor. No additional recommendations are made. MMODL / IJN: [id number] /
[2019-03-08] MEDS: THIAMINE 100 MG TAB PO SCH ×2 (08:23→18:55)
[2019-03-08] MEDS: NICOTINE 14MG/24HR PATCH TRANSDERM SCH (08:27)
[2019-03-08] MEDS: HALOPERIDOL LACTATE 5 MG/ML 1 ML VIAL IVP PRN (08:31)
[2019-03-08] MEDS: METOPROLOL TARTRATE 50 MG TAB PO SCH ×2 (09:08→20:04)
[2019-03-08] MEDS: LACTULOSE 20 GM/30 ML CUP PO SCH ×3 (09:08→20:55)
[2019-03-08] MEDS: FAMOTIDINE 20 MG TAB PO SCH ×2 (09:08→20:04)
[2019-03-08] MEDS: RIFAXIMIN 550 MG TABLET PO SCH ×2 (09:09→20:04)
--- NOTE | 2019-03-08 11:35 | P.CNNES ---
History of Present Illness Consult date: 03/08/19 Reason for Consult: AMS Chief complaint: Feeling weak and having diffuse abdominal pain History of Present Illness: HISTORY OF PRESENT ILLNESS: Thank you for allowing me to evaluate Mr. Dex Sánchez. Mr. Sánchez is a 33 year-old man with PMhx of HTN, EtOH abuse, alcoholic hepatitis, hepatitis C, Vitamin B12 deficiency, consulting neurology for altered mental status. Patient has received multiple doses of Ativan and Haldol for occult withdrawal symptoms along with hallucination. Patient is awake and alert. He states that his last alcohol intake was most likely Thursday. His father is at bedside with corroborating information. Patient has had issues with alcoholism for many years. Patient's father is also alcoholic. Patient denies any headache, dizziness, blurry/double vision, weakness. Patient reports having some mild numbness in his toes bilaterally. Patient denies ever being intubated for alcohol withdrawal. Patient denies ever having any seizures. PAST MEDICAL HISTORY: HTN, EtOH abuse, alcoholic hepatitis, hepatitis C, Vitamin B12 deficiency, PAST SURGICAL HISTORY: None reported HOME MEDICATIONS: Metoprolol, Adderall ALLERGIES: NKDA SOCIAL HISTORY: Current every day smoker. Daily alcohol abuse. Endorses hair in, marijuana and IV drug use in the past. FAMILY HISTORY: Father is a heroin addict. Mother with HTN REVIEW OF SYSTEMS: The 14 systems are reviewed and no additional points are identified compared to the review of systems documented history and physical PHYSICAL EXAMINATION: VITAL SIGNS: T 99.2 HR 97 RR 31 BP 132/66 O2 sat 96% on 2L O2 via NC GEN.: NAD, drowsy but cooperative HEENT: NCAT, significant scleral icterus NECK: Supple SKIN AND EXTREMITIES: Warm to touch, pitting edema bilaterally NEURO: MENTAL STATUS: Patient alert and oriented to self, place, time (patient initially stated 1919 but corrected himself). Able to name the current pre sident. Speech fluent for mumbles, following all commands readily. CRANIAL NERVES II THROUGH XII: II: Pupils are equal and reactive to light symmetrically. No afferent pupillary defect. Visual caballero are intact. III, IV, : No ptosis. Extraocular movements full. No nystagmus. V: Facial sen sation intact from V1-3. VII. No clear facial asymmetry. VIII: Hearing intact to finger rub bilaterally. IX, X: Symmetric palate elevation. XI: Shoulder shrug intact. XII: Tongue midline without fasciculation or atrophy. MOTOR: Normal bulk/tone. No pronator drift or tremor. Strength is at least antigravity in all 4 extremities SENSORY: Intact to light touch in all 4 extremities. REFLEXES: 1+ b/l UE. 2+ b/l LE Toes are downgoing. No clonus. COORDINATION: Finger to nose intact (although takes time). No dysmetria. GAIT: deferred DIAGNOSTIC TESTING: LABORATORY: WBC 15.5 hemoglobin 11.0 platelet 317 MCV 117.5 PT 16.5 INR 1.7 sodium 139 potassium 3.4 chloride 110 bicarb 22 BUN 7 creatinine 0.71 glucose 113 calcium 7.5 AST 211 ALT 26 alk phos 125 ammonia 71 C. diff positive IMAGING: TTE 03/07/19: SR, EF 60-65%, LV/LA/RV/RA sizes are normal. Interatrial and interventricular septum intact. CT head without contrast 10/14/2017: No acute intracranial findings. ASSESSMENT: Mr. Sánchez is a 33 year-old man with PMhx of HTN, EtOH abuse, alcoholic hepatitis, hepatitis C, Vitamin B12 deficiency, consulting neurology for altered mental status. Patient is alert and alert, following all commands. Patient has required multiple doses of Ativan for alcohol withdrawal symptoms. Ativan is preferred over Librium for patients with acute alcoholic hepatitis, which Mr. Sánchez has. Patient found with elevated ammonia at 71, which could contribute to altered mental status. Patient is also c.diff positive. RECOMMENDATIONS: 1. Continue with EtOH withdrawal management with Ativan IV PRN 2. Routine EEG 3. Metabolic derangement management by primary team. 4. Neurology will sign off. If EEG shows seizures, we'll continue to follow patient. Please feel free to contact Neurology again if with additional questions or concerns. 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 He does not drive but states he is able to get rides to [employer]. Pt works at [employer]. Pt was admitted on 03/15/18 and at that time pt stated he is afraid if he left the hospital that he might drink himself to . When asked at that time if he would do that on purpose, he stated "I am not sure." He was seen by psych. Today, pt states he is not suicidal or homicidal. Smoking Status: Current every day smoker Past Alcohol Use History: Abuse, Daily Additional Past Alcohol Use History / Comment(s): Pt started smoking in 1998 and is a 0.25 ppd smoker. Past Drug Use History: Heroin, IV Drug Use, Marijuana Additional Drug Use History / Comment(s): CLEAN FROM HEROIN FOR ALMOST 3.5 YEARS - Past Family History Father Family Medical History: No Reported History Additional Family Medical History / Comment(s): Father is a heroin addict now on methadone. Mother Family Medical History: Hypertension Medications and Allergies Home Medications Medication Instructions Recorded Confirmed Type Dextroamphetamine/Amphetamine 30 mg PO BID 07/24/18 03/06/19 History [Adderall] Metoprolol Tartrate [Lopressor] 50 mg PO BID 07/24/18 03/06/19 History Allergies Allergy/AdvReac Type Severity Reaction Status Date / Time No Known Allergies Allergy Verified 03/06/19 09:44 Physical Examination - Vital Signs Vital Signs: Vital Signs Temp Pulse Resp BP Pulse Ox 03/08/19 08:00 99.2 F 97 31 H 132/66 96 03/08/19 07:00 96 30 H 121/76 96 03/08/19 06:00 98 24 119/68 96 03/08/19 05:00 97 32 H 94/83 96 03/08/19 04:00 98.5 F 103 H 26 H 136/65 96 03/08/19 03:00 93 20 121/66 98 03/08/19 02:00 92 23 126/66 97 03/08/19 01:00 92 17 124/79 97 03/08/19 00:00 98.9 F 92 24 127/74 96 03/07/19 23:00 90 26 H 130/68 98 03/07/19 22:08 89 25 H 96 03/07/19 22:00 90 24 124/67 97 03/07/19 21:00 88 30 H 143/76 99 03/07/19 20:00 98.3 F 104 H 21 134/71 100 03/07/19 19:00 102 H 22 117/66 100 03/07/19 18:00 106 H 25 H 140/78 96 03/07/19 17:00 104 H 33 H 138/75 96 03/07/19 16:00 98.3 F 103 H 28 H 135/81 96 03/07/19 15:00 102 H 20 127/73 96 03/07/19 14:00 101 H 21 134/74 95 03/07/19 13:00 105 H 10 L 131/83 94 L 03/07/19 12:00 98.3 F 106 H 36 H 130/81 94 L 03/07/19 11:00 100 22 126/74 96 03/07/19 10:00 98 23 124/70 97 03/07/19 09:00 98 26 H 129/78 96 Intake and Output 03/07/19 03/08/19 03/08/19 22:59 06:59 14:59 Intake Total 750 900 200 Output Total 225 250 Balance 525 650 200 Intake: IV 200 Potassium Chloride 10 meq 100 In Water For Injection 1 100ml.bag @ 100 mls/hr IVPB Q1HR [facility] Rx#: [id number] Sodium Chloride 0.9% 1, 100 000 ml @ 100 mls/hr IV . Q10H [facility] Rx#:[id number] Intake, IV Titration 750 900 Amount Phytonadione 10 mg In 50 Sodium Chloride 0.9% 50 ml @ 100 mls/hr IVPB ONCE STA Rx#:[id number] Sodium Chloride 0.9% 1, 700 700 000 ml @ 100 mls/hr IV . Q10H [facility] Rx#:[id number] Sodium Chloride 0.9% 1, 50 000 ml @ 50 mls/hr IV . Q20H [facility] Rx#:[id number] cefTRIAXone 2 gm In 50 Sodium Chloride 0.9% 50 ml @ 100 mls/hr IVPB Q12HR [facility] Rx#:[id number] metroNIDAZOLE-NS PMX 500 100 mg In Saline 1 100ml.bag @ 100 mls/hr IVPB Q8H [facility] Rx#:[id number] Output: Urine 225 250 Other: Voiding Method Indwelling Catheter Indwelling Catheter # Voids 1 # Bowel Movements 0 Weight 110.1 kg Results - Laboratory Findings CBC and BMP: 03/08/19 05:16 03/08/19 05:16 Abnormal Lab Findings: Abnormal Labs 03/06/19 03/06/19 03/06/19 09:55 09:55 09:55 WBC RBC 3.03 L Hgb 10.9 L Hct 35.6 L MCV 117.2 H MCH 35.8 H MCHC 30.5 L Macrocytosis Marked A PT INR APTT Potassium 3.4 L Chloride Carbon Dioxide 21 L BUN 4 L Glucose Plasma Lactic Acid Niko 2.6 H* Calcium 7.9 L Total Bilirubin 15.1 H* Conjugated Bilirubin Unconjugated Bilirubin Delta Bilirubin AST 246 H Alkaline Phosphatase Ammonia Total Protein Albumin 2.7 L Urine Protein Urine Bilirubin Ur Leukocyte Esterase Amorphous Sediment Urine Bacteria Hyaline Casts Urine Mucus C. difficile (EIA) Intrp 03/06/19 03/06/19 03/07/19 09:55 14:38 05:06 WBC 11.6 H RBC 2.80 L Hgb 10.3 L Hct 33.4 L MCV 119.4 H MCH 36.9 H MCHC 30.9 L Macrocytosis Marked A PT 17.7 H INR 1.8 H APTT 30.7 H Potassium Chloride Carbon Dioxide BUN Glucose Plasma Lactic Acid Niko Calcium Total Bilirubin Conjugated Bilirubin Unconjugated Bilirubin Delta Bilirubin AST Alkaline Phosphatase Ammonia Total Protein Albumin Urine Protein 1+ H Urine Bilirubin 4+ H Ur Leukocyte Esterase Trace H Amorphous Sediment Rare H Urine Bacteria Rare H Hyaline Casts 12 H Urine Mucus Many H C. difficile (EIA) Intrp 03/07/19 03/07/19 03/07/19 05:06 07:43 10:00 WBC RBC Hgb Hct MCV MCH MCHC Macrocytosis PT INR APTT Potassium Chloride 110 H Carbon Dioxide BUN 7 L Glucose Plasma Lactic Acid Niko Calcium 7.5 L Total Bilirubin 13.9 H Conjugated Bilirubin Unconjugated Bilirubin Delta Bilirubin AST 225 H Alkaline Phosphatase 148 H Ammonia 71 H Total Protein 5.9 L Albumin 2.4 L Urine Protein Urine Bilirubin Ur Leukocyte Esterase Amorphous Sediment Urine Bacteria Hyaline Casts Urine Mucus C. difficile (EIA) Intrp Positive A 03/08/19 03/08/19 03/08/19 05:16 05:16 05:16 WBC 15.5 H RBC 3.03 L Hgb 11.0 L Hct 35.6 L MCV 117.5 H MCH 36.4 H MCHC 30.9 L Macrocytosis Marked A PT 16.5 H INR 1.7 H APTT Potassium 3.4 L Chloride 110 H Carbon Dioxide BUN 7 L Glucose 113 H Plasma Lactic Acid Niko Calcium 7.5 L Total Bilirubin 13.6 H Conjugated Bilirubin 6.6 H Unconjugated Bilirubin 1.6 H Delta Bilirubin 5.4 H AST 211 H Alkaline Phosphatase Ammonia Total Protein 6.0 L Albumin 2.3 L Urine Protein Urine Bilirubin Ur Leukocyte Esterase Amorphous Sediment Urine Bacteria Hyaline Casts Urine Mucus C. difficile (EIA) Intrp
--- NOTE | 2019-03-08 13:37 | P.PN ---
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 The patient states over the last week he's probably had about 100 shots of liquor. He also has an underlying history of ADD but has not been getting any type of stimulant medicat ion for many because of the ethanol use. He states his abdominal pain is improving. Appreciate multiple consultants. No significant nausea, vomiting or diarrhea stated. The patient has had signific ant problems with agitation and has been getting Ativan with Haldol. Objective - Vital Signs Vital signs: Vital Signs Temp 100 F H 03/08/19 12:00 Pulse 101 H 03/08/19 13:00 Resp 26 H 03/08/19 13:00 BP 131/70 03/08/19 13:00 Pulse Ox 97 03/08/19 13:00 Intake & Output 03/07/19 03/08/19 03/08/19 18:59 06:59 18:59 Intake Total 680 1300 600 Output Total 325 250 Balance 355 1050 600 Weight 110.1 kg Intake: IV 80 600 Normal Saline 0.9% 80 Potassium Chloride 10 meq 200 In Water For Injection 1 100ml.bag @ 100 mls/hr IVPB Q1HR [facility] Rx#: [id number] Sodium Chloride 0.9% 1, 400 000 ml @ 100 mls/hr IV . Q10H [facility] Rx#:[id number] Intake, IV Titration 600 1300 Amount Phytonadione 10 mg In 50 Sodium Chloride 0.9% 50 ml @ 100 mls/hr IVPB ONCE STA Rx#:[id number] Sodium Chloride 0.9% 1, 300 1100 000 ml @ 100 mls/hr IV . Q10H [facility] Rx#:[id number] Sodium Chloride 0.9% 1, 200 000 ml @ 50 mls/hr IV . Q20H [facility] Rx#:[id number] cefTRIAXone 2 gm In 50 Sodium Chloride 0.9% 50 ml @ 100 mls/hr IVPB Q12HR [facility] Rx#:[id number] metroNIDAZOLE-NS PMX 500 100 100 mg In Saline 1 100ml.bag @ 100 mls/hr IVPB Q8H [facility] Rx#:[id number] Output: Urine 325 250 Other: Voiding Method Indwelling Catheter Indwelling Catheter Indwelling Catheter # Voids 1 1 # Bowel Movements 1 0 - Constitutional General appearance: Present: obese - EENT Eyes: Absent: abnormal pupil - Neck Neck: Absent: lymphadenopathy - Respiratory Respiratory: bilateral: CTA - Cardiovascular Rhythm: regular Heart sounds: normal: S1, S2 Abnormal Heart Sounds: Absent: S3 Gallop - Gastrointestinal General gastrointestinal: Present: soft. Absent: tenderness - Integumentary Integumentary: Present: cellulitis, jaundiced - Labs CBC & Chem 7: 03/08/19 05:16 03/08/19 05:16 Labs: Abnormal Lab Results - Last 24 Hours (Table) 03/08/19 03/08/19 03/08/19 Range/Units 05:16 05:16 05:16 WBC 15.5 H (3.8-10.6) k/uL RBC 3.03 L (4.30-5.90) m/uL Hgb 11.0 L (13.0-17.5) gm/dL Hct 35.6 L (39.0-53.0) % MCV 117.5 H (80.0-100.0) fL MCH 36.4 H (25.0-35.0) pg MCHC 30.9 L (31.0-37.0) g/dL Macrocytosis Marked A PT 16.5 H (9.0-12.0) sec INR 1.7 H (<1.2) Potassium 3.4 L (3.5-5.1) mmol/L Chloride 110 H (98-107) mmol/L BUN 7 L (9-20) mg/dL Glucose 113 H (74-99) mg/dL Calcium 7.5 L (8.4-10.2) mg/dL Total Bilirubin 13.6 H (0.2-1.3) mg/dL Conjugated Bilirubin 6.6 H (0.0-0.3) mg/dL Unconjugated Bilirubin 1.6 H (0.0-1.1) mg/dL Delta Bilirubin 5.4 H (0.0-0.2) mg/dL AST 211 H (17-59) U/L Total Protein 6.0 L (6.3-8.2) g/dL Albumin 2.3 L (3.5-5.0) g/dL Microbiology - Last 24 Hours (Table) 03/06/19 09:55 Blood Culture - Preliminary Blood No Growth after 48 hours Assessment and Plan (1) Alcoholism Current Visit: Yes Status: Acute Code(s): F10.20 - ALCOHOL DEPENDENCE, UNCOMPLICATED SNOMED Code(s): 3983112 (2) Jaundice Current Visit: No Status: Acute Code(s): R17 - UNSPECIFIED JAUNDICE SNOMED Code(s): 59569536 Plan: Supportive care. PAM with [facility]. Appreciate neurology consult. Prognosis is guarded. I had a long discussing his biologic mother this overall care. Time with Patient: Greater than 30
[2019-03-08] MEDS ORDERED: ACETAMINOPHEN IV (For NPO) 1,000 MG in EMPTY BAG 1 BAG IVPB ONE (20:10)
--- NOTE | 2019-03-08 22:05 | P.PN ---
Subjective Progress Note Date: 03/08/19 Principal diagnosis: Alcoholic liver disease, alcoholic hepatitis, Clostridium difficile infection Patient is seen lying in bed. No acute events overnight. Currently has fecal m anagement system in place. Objective - Vital Signs Vital signs: Vital Signs Temp 101.2 F H 03/08/19 20:00 Pulse 112 H 03/08/19 20:00 Resp 18 03/08/19 20:00 BP 144/85 03/08/19 20:00 Pulse Ox 97 03/08/19 20:00 Intake & Output 03/08/19 03/08/19 03/09/19 06:59 18:59 06:59 Intake Total 1300 1500 100 Output Total 250 140 45 Balance 1050 1360 55 Weight 110.1 kg Intake: IV 1500 100 Potassium Chloride 10 meq 400 In Water For Injection 1 100ml.bag @ 100 mls/hr IVPB Q1HR [facility] Rx#: [id number] Sodium Chloride 0.9% 1, 1100 100 000 ml @ 100 mls/hr IV . Q10H [facility] Rx#:[id number] Intake, IV Titration 1300 Amount Phytonadione 10 mg In 50 Sodium Chloride 0.9% 50 ml @ 100 mls/hr IVPB ONCE STA Rx#:[id number] Sodium Chloride 0.9% 1, 1100 000 ml @ 100 mls/hr IV . Q10H [facility] Rx#:[id number] cefTRIAXone 2 gm In 50 Sodium Chloride 0.9% 50 ml @ 100 mls/hr IVPB Q12HR [facility] Rx#:[id number] metroNIDAZOLE-NS PMX 500 100 mg In Saline 1 100ml.bag @ 100 mls/hr IVPB Q8H [facility] Rx#:[id number] Output: Urine 250 140 45 Other: Voiding Method Indwelling Catheter Indwelling Catheter Indwelling Catheter # Voids 1 # Bowel Movements 0 - Exam On physical examination, patient appears comfortable in no apparent distress. HEAD: Normocephalic, atraumatic. EYES: Scleral icterus. No conjunctival injection. MOUTH: No lesions, tongue midline. NECK: Trachea midline, no gross abnormalities. CHEST: Clear to auscultation with no wheezing or rhonchi appreciated. HEART: Regular rate and rhythm. ABDOMEN: Soft, obese, tender to palpation. Bowel sounds are positive. No o rganomegaly. No guarding or rigidity. EXTREMITIES: No pedal edema. SKIN: No rashes, jaundice. NEUROLOGIC: Arousable but somnolent, currently receiving benzodiazepine treatment for alcohol withdrawal. - Labs CBC & Chem 7: 03/08/19 05:16 03/08/19 05:16 Labs: Abnormal Lab Results - Last 24 Hours (Table) 03/08/19 03/08/19 03/08/19 Range/Units 05:16 05:16 05:16 WBC 15.5 H (3.8-10.6) k/uL RBC 3.03 L (4.30-5.90) m/uL Hgb 11.0 L (13.0-17.5) gm/dL Hct 35.6 L (39.0-53.0) % MCV 117.5 H (80.0-100.0) fL MCH 36.4 H (25.0-35.0) pg MCHC 30.9 L (31.0-37.0) g/dL Macrocytosis Marked A PT 16.5 H (9.0-12.0) sec INR 1.7 H (<1.2) Potassium 3.4 L (3.5-5.1) mmol/L Chloride 110 H (98-107) mmol/L BUN 7 L (9-20) mg/dL Glucose 113 H (74-99) mg/dL Calcium 7.5 L (8.4-10.2) mg/dL Total Bilirubin 13.6 H (0.2-1.3) mg/dL Conjugated Bilirubin 6.6 H (0.0-0.3) mg/dL Unconjugated Bilirubin 1.6 H (0.0-1.1) mg/dL Delta Bilirubin 5.4 H (0.0-0.2) mg/dL AST 211 H (17-59) U/L Total Protein 6.0 L (6.3-8.2) g/dL Albumin 2.3 L (3.5-5.0) g/dL Microbiology - Last 24 Hours (Table) 03/06/19 09:55 Blood Culture - Preliminary Blood No Growth after 48 hours Assessment and Plan (1) Alcoholic hepatitis Narrative/Plan: 33-year-old male with multiple medical comorbidities including chronic hepatitis C, alcoholic liver disease, alcohol abuse who presented due to abdominal pain, and weakness. Patient currently receiving treatment for suspected spontaneous bacterial peritonitis. A ascites was seen on ultrasound, however not enough for paracentesis. The patient has elevation in liver enzymes in both a cholestatic and hepatocellular pattern consistent with acute alcoholic hepatitis, which are overall stable. Currently receiving treatment in the intensive care unit on protocol for alcohol withdrawal. Testing for C. diff was also positive. Current Visit: No Status: Acute Code(s): K70.10 - ALCOHOLIC HEPATITIS WITHOUT ASCITES SNOMED Code(s): 241580092 (2) Alcohol withdrawal Current Visit: Yes Status: Acute Code(s): F10.239 - ALCOHOL DEPENDENCE WITH WITHDRAWAL, UNSPECIFIED SNOMED Code(s): 096708572 (3) Chronic alcohol dependence, continuous Current Visit: No Status: Acute Code(s): F10.20 - ALCOHOL DEPENDENCE, UNCOMPLICATED SNOMED Code(s): 581994158 (4) Hyperbilirubinemia Current Visit: No Status: Acute Code(s): E80.6 - OTHER DISORDERS OF BI LIRUBIN METABOLISM SNOMED Code(s): 39273148 (5) Transaminitis Current Visit: No Status: Acute Code(s): R74.0 - NONSPEC ELEV OF LEVELS OF TRANSAMNS & LACTIC ACID DEHYDRGNSE SNOMED Code(s): 251023097 Plan: Supportive care Okay for diet as tolerated Continue to monitor CBC, CMP, INR Vancomycin every 6 hours by mouth for Clostridium difficile Rifaximin and lactulose for treatment of hepatic encephalopathy Alcohol abstinence Vitamin K given yesterday with INR stable at 1.7 from 1.8 previously today ICU care Thank you for allowing us to participate in the care of the patient we will continue to follow
--- NOTE | 2019-03-08 22:30 | EEG ---
ELECTROENCEPHALOGRAM REPORT PROCEDURE DATE: 03/08/2019. ELECTROENCEPHALOGRAM RECORD (EEG) REPORT: TECHNIQUE: A routine 18 channel EEG was performed with video using the 10/20 international placement system. HISTORY: Diffuse abdominal pain. Please note that patient has been given several doses of Ativan and Haldol. OTHER MEDICAL HISTORY: Includes hypertension, liver disease. CURRENT MEDICATIONS: Vancomycin, Zofran, potassium chloride, Metoprolol, Ativan, Cephulac. STUDY DURATION: 20 minutes. FINDINGS: Please note that the patient was asleep for essentially this entire recording. At the end of this recording during the rare period of maximal alertness, the background activity consisted of 7 to 8 hertz rhythmic waveforms symmetrically distributed over both posterior quadrants. ACTIVATION: Hyperventilation: Not performed. Photic stimulation: Mild symmetric driving seen. Sleep: Stage 2 sleep noted. ABNORMALITIES: During the rare periods of relatively maximal arousal, intermittent diffuse 5-7 hertz polymorphic theta range slowing was seen with superimposed faster frequencies. IMPRESSION: Significantly limited study, predominantly sleep EEG. The intermittent diffuse theta range slowing mentioned above is not epileptiform in nature. These findings indicate mild diffuse cerebral dysfunction and may in part be due to medication effect. No seizures were recorded. No epileptiform activity was present. If clinical concern remains for a seizure disorder, would suggest a repeat study. MMODL / IJN: [id number] / [facility]
[2019-03-09] MEDS: VANCOMYCIN ORAL SOLUTION 250 MG/5 ML BOTTLE PO SCH ×4 (00:30→17:08)
[2019-03-09] MEDS: CHERRY FLAVOR 60 ML BOTTLE PO SCH ×4 (00:30→17:08)
[2019-03-09] MEDS: LORazepam 2 MG/ML INJ IV PRN ×8 (02:33→22:47)
[2019-03-09 04:52] LABS: INR 1.9 (<1.2); Prothrombin Time 18.8 sec (9.0-12.0)
[2019-03-09 05:00] LABS: ALT 26 U/L (21-72); AST 189 U/L (17-59); African American GFR (CKD) >90 (>60 ml/min/1.73 sqM); Albumin 2.2 g/dL (3.5-5.0); Alkaline Phosphatase 112 U/L (38-126); Anion Gap 7 mmol/L; Basophils # (A) 0.1 k/uL (0-0.2); Basophils % (A) 1 %; Blood Urea Nitrogen 8 mg/dL (9-20); Calcium 7.6 mg/dL (8.4-10.2); Carbon Dioxide 21 mmol/L (22-30); Chloride 112 mmol/L (98-107); Eosinophils # (A) 0.3 k/uL (0-0.7); Eosinophils % (A) 2 %; Glucose 109 mg/dL (74-99); HCT 38.3 % (39.0-53.0); HGB 11.6 gm/dL (13.0-17.5); Hypochromasia Marked; Lymphocytes # (A) 1.6 k/uL (1.0-4.8); Lymphocytes % (A) 8 %; MCH 36.5 pg (25.0-35.0); MCHC 30.3 g/dL (31.0-37.0); MCV 120.7 fL (80.0-100.0); Macrocytosis Marked; Mean Platelet Volume 6.5; Monocytes # (A) 0.9 k/uL (0-1.0); Monocytes % (A) 5 %; Neutrophils # (A) 15.8 k/uL (1.3-7.7); Neutrophils % (A) 83 %; Non-African American GFR(CKD) >90 (>60 ml/min/1.73 sqM); Platelet Count 345 k/uL (150-450); RBC 3.17 m/uL (4.30-5.90); RDW 14.4 % (11.5-15.5); Sodium 140 mmol/L (137-145); Total Bilirubin 14.3 mg/dL (0.2-1.3); WBC 18.9 k/uL (3.8-10.6)
[2019-03-09 05:14] LABS: Anisocytosis (M) Present; Poikilocytosis (M) Present; Polychromasia Present
[2019-03-09 05:15] LABS: Target Cells Present
[2019-03-09] MEDS: THIAMINE 100 MG TAB PO SCH ×2 (06:35→17:08)
--- NOTE | 2019-03-09 07:48 | PN ---
PROGRESS NOTE DATE OF SERVICE: March 09, 2019 This is 33-year-old male with a history of recently being discharged from the hospital on March 03. He was readmitted 3 days later on March 06. He came to the emergency room with vague complaints of abdominal pain, chest pain, and dizziness. He has a history of significant alcohol abuse and alcoholic liver disease and alcoholic withdrawal syndrome. He is quite jaundice with a bilirubin above 10. The patient was admitted with a diagnosis of possible spontaneous bacterial peritonitis and was going to have a paracentesis abdominis but ultrasound did not reveal enough fluid to be drained. He does also have a history of alcoholic hepatitis, previous history of IV heroin use, hepatitis C, hypertension, ongoing tobacco use, anxiety/depression, ascites, vitamin B12 deficiency, and anemia. In addition, his ammonia level was elevated requiring lactulose therapy. Currently, he is getting nasal O2 at 2 L. He is getting 0.9 at 100 mL an hour. The patient had required 6 mg of Ativan over the last 12 hours. On the previous 12 hour shift, he required 12 to 14 mg of Ativan. Currently, the patient has sonorous respirations. He does arouse. Still very lethargic and sleepy, probably from the Ativan. PHYSICAL EXAMINATION: VITAL SIGNS: Current vital signs are reviewed. His temperature is 97.8, heart rate 90, respiratory rate 20, blood pressure 116/62, mean 80, saturations 95%. GENERAL: Appears in no acute distress. HEENT: Examination is grossly unremarkable. Mucous membranes are moist. NECK: Supple. Full range of motion. No adenopathy. Neck veins are flat. CARDIOVASCULAR: Examination reveals a regular rhythm and rate. Heart rate 90. Heart sounds are distant, primarily obscured by his sonorous respirations. LUNGS: Reveal coarse bilateral breath sounds. Breath sounds equal bilaterally. No wheezes. ABDOMEN: Obese. Bowel sounds are heard. EXTREMITIES: Are intact. No cyanosis, clubbing, or significant edema. SKIN: Reveals significant jaundice. NEUROLOGIC: Examination is difficult to assess. He does arouse. LAB DATA: Lab data includes a white count 18.9, hemoglobin 11.6, hematocrit 38.3, platelet count 345,000. PT, INR were 18.8 and 1.9. Sodium, potassium normal. Chloride 112, CO2 of 21. Anion gap is normal. BUN and creatinine were 8 and 0.81. AST down to 189. Albumin 2.2. His C difficile was positive. No recent x-rays to report. His EEG shows diffuse slowing. MEDICATIONS: His medications are reviewed. Microbiology except for the C difficile studies are negative. ASSESSMENT: 1. Severe alcoholic liver disease with possible spontaneous bacterial peritonitis, unable to do a paracentesis abdominis. 2. History of alcoholic hepatitis. 3. History of chronic alcohol abuse. 4. Previous history of IV heroin use. 5. History of hepatitis C. 6. History of hypertension. 7. Ongoing tobacco use, rule out chronic obstructive pulmonary disease. 8. History of anxiety/depression. 9. Mild ascites. 10.Vitamin B12 deficiency. 11.Mild anemia. 12.Hyperbilirubinemia. 13.Hyperammonemia. PLAN: Currently the patient is doing about the same. His Ativan requirements, I believe, are decreasing. The patient's labs are reviewed. His medications are reviewed. He remains on the ceftriaxone and also rifaximin and vancomycin orally for C difficile studies. He is getting an Ativan per the CIWA protocol. Additional recommendations and suggestions are forthcoming. Prognosis is guarded. We will continue to monitor. MMODL / IJN: [id number] /
[2019-03-09] MEDS: SODIUM CHLORIDE 0.9% 1,000 ML IV SCH ×2 (07:54→21:00)
[2019-03-09] MEDS: NICOTINE 14MG/24HR PATCH TRANSDERM SCH (08:12)
[2019-03-09] MEDS: METOPROLOL TARTRATE 50 MG TAB PO SCH ×2 (09:06→20:54)
[2019-03-09] MEDS: FAMOTIDINE 20 MG TAB PO SCH ×2 (09:06→20:54)
[2019-03-09] MEDS: RIFAXIMIN 550 MG TABLET PO SCH ×2 (09:06→20:54)
[2019-03-09] MEDS: LACTULOSE 20 GM/30 ML CUP PO SCH ×3 (09:06→20:55)
--- NOTE | 2019-03-09 12:01 | CDI ---
Documentation Clarification Form Date: 03/09/2019 11:36:10 AM From: Jesica Whaley RN CCDS 6 Admit Date: 03/06/2019 12:22:00 PM Patient Name: Dex Sánchez Visit Number: [id number] Discharge Date: ATTENTION: The Clinical Documentation Specialists (CDI) and [facility] Coding Staff appreciate your assistance in clarifying documentation. Please respond to the clarification below the line at the bottom and electronically sign. The CDI & [facility] staff will review the response and follow-up if needed. Please note: Queries are made part of the Legal Health Record. If you have any questions, please contact the author of this message via ITS. Dr. Adrianne Higgins Neurology was consulted for Altered Mental Status. History/Risk Factors:33-year-old male presented to the ED with abdominal and chest pain. Medical history, IVDA; ETOH abuse; HTN, Alcoholic hepatitis, hepatitis C, Vitamin B 12 Deficiency. Clinical Indicators: per your consult 03/08/2019 Patient found with elevated ammonia at 71, which could contribute to altered mental status. Labs: Ammonia 03/07/19 71; 03/09/2019 73; EE03/08/19 intermittent diffuse theta range slowing not epileptiform in nature. Indicate mild cerebral dysfunction and may in part be due to medication effect. No seizures reported. Treatment: Lactulose 10gm po TID started on 03/07/2019, In your professional opinion, please clarify the etiology of the Altered Mental Status, if known. * Hepatic Encephalopathy due to Alcoholic Hepatitis, Hepatitis C * Other condition (please specify) * Unable to determine (Last Revision: August 2017) MTDD
[2019-03-09] MEDS ORDERED: SODIUM CHLORIDE 0.9% 1,000 ML IV ONE (14:21)
[2019-03-09] MEDS: HALOPERIDOL LACTATE 5 MG/ML 1 ML VIAL IVP PRN (18:24)
--- NOTE | 2019-03-09 19:59 | P.PN ---
Subjective Progress Note Date: 03/09/19 Principal diagnosis: Alcoholic liver disease, alcoholic hepatitis, Clostridium difficile infection Patient is seen lying in bed. No acute events overnight. Patient tolerated his breakfast. Objective - Vital Signs Vital signs: Vital Signs Temp 100.7 F H 03/09/19 16:00 Pulse 98 03/09/19 19:00 Resp 32 H 03/09/19 19:00 BP 131/78 03/09/19 19:00 Pulse Ox 95 03/09/19 19:00 Intake & Output 03/09/19 03/09/19 03/10/19 06:59 18:59 06:59 Intake Total 1300 3650 Output Total 395 392 Balance 905 3258 Weight 110.9 kg Intake: IV 1100 1300 Sodium Chloride 0.9% 1, 1100 1300 000 ml @ 100 mls/hr IV . Q10H DANILO Rx#:[id number] Intake, IV Titration 2050 Amount Sodium Chloride 0.9% 1, 2000 000 ml @ 999 mls/hr IV . Q1H1M ONE Rx#:[id number] cefTRIAXone 2 gm In 50 Sodium Chloride 0.9% 50 ml @ 100 mls/hr IVPB Q12HR DANILO Rx#:[id number] Oral 200 300 Output: Urine 395 392 Other: Voiding Method Indwelling Catheter Indwelling Catheter - Exam On physical examination, patient appears comfortable in no apparent distress. HEAD: Normocephalic, atraumatic. EYES: Scleral icterus. No conjunctival injection. MOUTH: No lesions, tongue midline. NECK: Trachea midline, no gross abnormalities. CHEST: Clear to auscultation with no wheezing or rhonchi appreciated. HEART: Regular rate and rhythm. ABDOMEN: Soft, obese, tender to palpation. Bowel sounds are positive. No organomegaly. No guarding or rigidity. EXTREMITIES: No pedal edema. SKIN: No rashes, jaundice. NEUROLOGIC: Arousable but somnolent, currently receiving benzodiazepine treatment for alcohol withdrawal. - Labs CBC & Chem 7: 03/09/19 04:31 03/09/19 04:31 Labs: Abnormal Lab Results - Last 24 Hours (Table) 03/09/19 03/09/19 03/09/19 Range/Units 04:31 04:31 04:31 WBC 18.9 H (3.8-10.6) k/uL RBC 3.17 L (4.30-5.90) m/uL Hgb 11.6 L (13.0-17.5) gm/dL Hct 38.3 L (39.0-53.0) % MCV 120.7 H (80.0-100.0) fL MCH 36.5 H (25.0-35.0) pg MCHC 30.3 L (31.0-37.0) g/dL Neutrophils # 15.8 H (1.3-7.7) k/uL Macrocytosis Marked A PT (9.0-12.0) sec INR (<1.2) Chloride 112 H (98-107) mmol/L Carbon Dioxide 21 L (22-30) mmol/L BUN 8 L (9-20) mg/dL Glucose 109 H (74-99) mg/dL Calcium 7.6 L (8.4-10.2) mg/dL Total Bilirubin 14.3 H (0.2-1.3) mg/dL AST 189 H (17-59) U/L Ammonia 73 H (<30) umol/L Total Protein 6.0 L (6.3-8.2) g/dL Albumin 2.2 L (3.5-5.0) g/dL 03/09/19 Range/Units 04:31 WBC (3.8-10.6) k/uL RBC (4.30-5.90) m/uL Hgb (13.0-17.5) gm/dL Hct (39.0-53.0) % MCV (80.0-100.0) fL MCH (25.0-35.0) pg MCHC (31.0-37.0) g/dL Neutrophils # (1.3-7.7) k/uL Macrocytosis PT 18.8 H (9.0-12.0) sec INR 1.9 H (<1.2) Chloride (98-107) mmol/L Carbon Dioxide (22-30) mmol/L BUN (9-20) mg/dL Glucose (74-99) mg/dL Calcium (8.4-10.2) mg/dL Total Bilirubin (0.2-1.3) mg/dL AST (17-59) U/L Ammonia (<30) umol/L Total Protein (6.3-8.2) g/dL Albumin (3.5-5.0) g/dL Microbiology - Last 24 Hours (Table) 03/06/19 09:55 Blood Culture - Preliminary Blood No Growth after 72 hours Assessment and Plan (1) Alcoholic hepatitis Narrative/Plan: 33-year-old male with multiple medical comorbidities including chronic hepatitis C, alcoholic liver disease, alcohol abuse who presented due to abdominal pain, and weakness. Patient currently receiving treatment for suspected spontaneous bacterial peritonitis. A ascites was seen on ultrasound, however not enough for paracentesis. The patient has elevation in liver enzymes in both a cholestatic and hepatocellular pattern consistent with acute alcoholic hepatitis, which are overall stable. Currently receiving treatment in the intensive care unit on protocol for alcohol withdrawal. Testing for C. diff was also positive. Current Visit: No Status: Acute Code(s): K70.10 - ALCOHOLIC HEPATITIS WITHOUT ASCITES SNOMED Code(s): 388672610 (2) Alcohol withdrawal Current Visit: Yes Status: Acute Code(s): F10.239 - ALCOHOL DEPENDENCE WITH WITHDRAWAL, UNSPECIFIED SNOMED Code(s): 379510954 (3) Chronic alcohol dependence, continuous Current Visit: No Status: Acute Code(s): F10.20 - ALCOHOL DEPENDENCE, UNCOMPLICATED SNOMED Code(s): 382284664 (4) Hyperbilirubinemia Current Visit: No Status: Acute Code(s): E80.6 - OTHER DISORDERS OF BILIRUBIN METABOLISM SNOMED Code(s): 90508839 (5) Transaminitis Current Visit: No Status: Acute Code(s): R74.0 - NONSPEC ELEV OF LEVELS OF TRANSAMNS & LACTIC ACID DEHYDRGNSE SNOMED Code(s): 623047635 Plan: Supportive care Okay for diet as tolerated Continue to monitor CBC, CMP, INR Vancomycin every 6 hours by mouth for Clostridium difficile Rifaximin and lactulose for treatment of hepatic encephalopathy Alcohol abstinence ICU care Ceftriaxone for suspected SBP Thank you for allowing us to participate in the care of the patient we will continue to follow
[2019-03-10] MEDS: CHERRY FLAVOR 60 ML BOTTLE PO SCH ×6 (00:20→19:13)
[2019-03-10] MEDS: VANCOMYCIN ORAL SOLUTION 250 MG/5 ML BOTTLE PO SCH ×4 (00:27→17:36)
[2019-03-10] MEDS: LORazepam 2 MG/ML INJ IV PRN ×11 (00:27→22:19)
[2019-03-10] MEDS: HALOPERIDOL LACTATE 5 MG/ML 1 ML VIAL IVP PRN (02:37)
[2019-03-10] MEDS: SODIUM CHLORIDE 0.9% 1,000 ML IV SCH ×2 (05:17→19:12)
[2019-03-10 06:32] LABS: Basophils # (A) 0.1 k/uL (0-0.2); Basophils % (A) 1 %; Eosinophils # (A) 0.3 k/uL (0-0.7); Eosinophils % (A) 2 %; HCT 39.5 % (39.0-53.0); HGB 11.6 gm/dL (13.0-17.5); Hypochromasia Marked; Lymphocytes # (A) 1.6 k/uL (1.0-4.8); Lymphocytes % (A) 11 %; MCHC 29.3 g/dL (31.0-37.0); MCV 119.5 fL (80.0-100.0); Macrocytosis Marked; Monocytes # (A) 0.7 k/uL (0-1.0); Monocytes % (A) 5 %; Neutrophils # (A) 11.8 k/uL (1.3-7.7); Neutrophils % (A) 80 %; Platelet Count 316 k/uL (150-450); RBC 3.31 m/uL (4.30-5.90); RDW 14.8 % (11.5-15.5); WBC 14.8 k/uL (3.8-10.6)
[2019-03-10 06:45] LABS: INR 1.8 (<1.2); Prothrombin Time 17.7 sec (9.0-12.0)
[2019-03-10 07:01] LABS: ALT 26 U/L (21-72); AST 179 U/L (17-59); African American GFR (CKD) >90 (>60 ml/min/1.73 sqM); Albumin 2.3 g/dL (3.5-5.0); Alkaline Phosphatase 122 U/L (38-126); Anion Gap 9 mmol/L; Blood Urea Nitrogen 7 mg/dL (9-20); Calcium 7.5 mg/dL (8.4-10.2); Carbon Dioxide 19 mmol/L (22-30); Chloride 113 mmol/L (98-107); Glucose 86 mg/dL (74-99); Non-African American GFR(CKD) >90 (>60 ml/min/1.73 sqM); Potassium 3.6 mmol/L (3.5-5.1); Sodium 141 mmol/L (137-145); Total Bilirubin 14.7 mg/dL (0.2-1.3); Total Protein 6.3 g/dL (6.3-8.2)
[2019-03-10] MEDS ORDERED: Potassium Replacement Protocol 1 EACH MISC MISCELLANE PRN (07:07)
[2019-03-10] MEDS: THIAMINE 100 MG TAB PO SCH ×2 (07:08→16:50)
--- NOTE | 2019-03-10 07:23 | PN ---
PROGRESS NOTE PULMONARY/CRITICAL CARE PROGRESS NOTE: DATE OF SERVICE: March 10, 2019 This is 33-year-old male with a history of recent discharge from the hospital March 03. He was readmitted 3 days later on March 06 for vague complaints of abdominal pain, chest pain, and dizziness. He has a history of significant alcohol abuse and alcoholic liver disease and alcoholic withdrawal syndrome. He is quite jaundiced with a bilirubin above 10. The patient also had significant elevated ammonia levels. He was thought to have bacterial peritonitis. He did have some ascites, but it was too small to drain. He has a history of alcoholic hepatitis, previous history of IV heroin use, hepatitis C, hypertension, ongoing tobacco use with suspected COPD, anxiety/depression, ascites, vitamin B12 deficiency, and chronic anemia. The patient overall is not doing very well. He is receiving no supplemental oxygen. His IV is saline at 100 mL an hour. Since 7 p.m., because of agitation, he has received 22 mg of Ativan. PHYSICAL EXAMINATION: VITAL SIGNS: Current vital signs are reviewed. Temperature is 98.6, heart rate 100, respiratory rate 23, blood pressure 144/65, mean 91, saturations 96% on room air. GENERAL: Appears in no acute distress. HEENT: Examination is grossly unremarkable. Mucous membranes are moist. He does have scleral icterus. NECK: Supple. Full range of motion. No adenopathy or thyromegaly. Neck veins are flat. CARDIOVASCULAR: Examination reveals regular rhythm and rate. Heart rate about 110 beats per minute. He is in sinus rhythm. S1, S2 normal. Heart sounds are distant. LUNGS: Reveal coarse rhonchi. He has got sonorous respirations. No wheezes. Breath sounds equal. ABDOMEN: Obese. Bowel sounds are heard. EXTREMITIES: Are intact. Mild edema. SKIN: Reveals significant jaundice. NEUROLOGIC: Examination is difficult to assess. He does arouse. He does answer questions. Very lethargic and sleepy though. LAB DATA: Lab data is reviewed. White count 14.8, hemoglobin 11.6, hematocrit 39.5, platelet count 316,000. His PT is 17.7, INR 1.8, this coagulopathy being the coagulopathy of chronic liver disease. Current electrolytes are pending. Ammonia is down from 73 to 45. Most recent bilirubin was 14.3. His C difficile testing was positive. Chest x-ray has not been done as yet. Microbiology is negative. ASSESSMENT: 1. Severe alcoholic liver disease with possible spontaneous bacterial peritonitis, unable to do paracentesis abdominis. 2. History of alcoholic hepatitis. 3. History of chronic alcohol abuse. 4. Previous history of IV heroin use. 5. History of hepatitis C. 6. History of hypertension. 7. Ongoing tobacco use, with possible underlying chronic obstructive pulmonary disease. 8. History of anxiety/depression. 9. Mild ascites. 10.Vitamin B12 deficiency. 11.Mild anemia. 12.Hyperbilirubinemia. 13.Hyperammonemia. 14.Coagulopathy of chronic liver disease. 15.Clostridium difficile colitis, currently being treated. PLAN: The patient is doing poorly. He continues to require high amounts of Ativan for agitation. One might consider transferring him to a facility such as [facility]. They have a liver unit there. Additional recommendations and suggestions are forthcoming. Prognosis is poor. I did have a very honest discussion with the mother yesterday. The patient may not survive this illness. We will continue to follow. MMODL / IJN: [id number] /
--- NOTE | 2019-03-10 07:37 | P.PN ---
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 The patient states over the last week he's probably had about 100 shots of liquor. He also has an underlying history of ADD but has not been getting any type of stimulant medicat ion for many because of the ethanol use. He states his abdominal pain is improving. Appreciate multiple consultants. No significant nausea, vomiting or diarrhea stated. The patient has had signific ant problems with agitation and has been getting Ativan with Haldol. The patient otherwise is still sedated. Objective - Vital Signs Vital signs: Vital Signs Temp 98.6 F 03/10/19 04:00 Pulse 107 H 03/10/19 07:00 Resp 21 03/10/19 07:00 BP 130/56 03/10/19 07:00 Pulse Ox 96 03/10/19 06:00 Intake & Output 03/09/19 03/10/19 03/10/19 18:59 06:59 18:59 Intake Total 3650 1100 100 Output Total 392 365 30 Balance 3258 735 70 Weight 112.8 kg Intake: IV 1300 1100 100 Sodium Chloride 0.9% 1, 1300 1100 100 000 ml @ 100 mls/hr IV . Q10H DANILO Rx#:[id number] Intake, IV Titration 2050 Amount Sodium Chloride 0.9% 1, 2000 000 ml @ 999 mls/hr IV . Q1H1M ONE Rx#:[id number] cefTRIAXone 2 gm In 50 Sodium Chloride 0.9% 50 ml @ 100 mls/hr IVPB Q12HR DANILO Rx#:[id number] Oral 300 Output: Urine 392 365 30 Other: Voiding Method Indwelling Catheter Indwelling Catheter - Constitutional General appearance: Present: obese - EENT Eyes: Absent: abnormal pupil - Neck Neck: Absent: lymphadenopathy Thyroid: bilateral: normal size - Respiratory Respiratory: bilateral: CTA - Cardiovascular Rhythm: regular Heart sounds: normal: S1, S2 Abnormal Heart Sounds: Absent: S3 Gallop - Gastrointestinal General gastrointestinal: Present: soft - Psychiatric Psychiatric: Absent: A&O x's 3 - Labs CBC & Chem 7: 03/10/19 06:19 03/10/19 06:19 Labs: Abnormal Lab Results - Last 24 Hours (Table) 03/10/19 03/10/19 03/10/19 Range/Units 06:19 06:19 06:19 WBC 14.8 H (3.8-10.6) k/uL RBC 3.31 L (4.30-5.90) m/uL Hgb 11.6 L (13.0-17.5) gm/dL MCV 119.5 H (80.0-100.0) fL MCHC 29.3 L (31.0-37.0) g/dL Neutrophils # 11.8 H (1.3-7.7) k/uL Macrocytosis Marked A PT (9.0-12.0) sec INR (<1.2) Chloride 113 H (98-107) mmol/L Carbon Dioxide 19 L (22-30) mmol/L BUN 7 L (9-20) mg/dL Calcium 7.5 L (8.4-10.2) mg/dL Total Bilirubin 14.7 H (0.2-1.3) mg/dL AST 179 H (17-59) U/L Ammonia 45 H (<30) umol/L Albumin 2.3 L (3.5-5.0) g/dL 03/10/19 Range/Units 06:19 WBC (3.8-10.6) k/uL RBC (4.30-5.90) m/uL Hgb (13.0-17.5) gm/dL MCV (80.0-100.0) fL MCHC (31.0-37.0) g/dL Neutrophils # (1.3-7.7) k/uL Macrocytosis PT 17.7 H (9.0-12.0) sec INR 1.8 H (<1.2) Chloride (98-107) mmol/L Carbon Dioxide (22-30) mmol/L BUN (9-20) mg/dL Calcium (8.4-10.2) mg/dL Total Bilirubin (0.2-1.3) mg/dL AST (17-59) U/L Ammonia (<30) umol/L Albumin (3.5-5.0) g/dL Microbiology - Last 24 Hours (Table) 03/06/19 09:55 Blood Culture - Preliminary Blood No Growth after 72 hours Assessment and Plan (1) Alcoholism Current Visit: Yes Status: Acute Code(s): F10.20 - ALCOHOL DEPENDENCE, UNCOMPLICATED SNOMED Code(s): 3076860 (2) Jaundice Current Visit: No Status: Acute Code(s): R17 - UNSPECIFIED JAUNDICE SNOMED Code(s): 17169190 Plan: Continue current medication and protocol for alcoholic withdrawal. Prognosis is guarded secondary to the severity of his illness. Check CBC and CMP in a.m. Appreciate multiple consultants input. Time with Patient: Less than 30
[2019-03-10] MEDS: METOPROLOL TARTRATE 50 MG TAB PO SCH ×2 (08:24→22:10)
[2019-03-10] MEDS: FAMOTIDINE 20 MG TAB PO SCH ×2 (08:24→22:10)
[2019-03-10] MEDS: LACTULOSE 20 GM/30 ML CUP PO SCH ×3 (08:24→22:11)
[2019-03-10] MEDS: NICOTINE 14MG/24HR PATCH TRANSDERM SCH (08:25)
[2019-03-10] MEDS: RIFAXIMIN 550 MG TABLET PO SCH ×2 (08:25→22:11)
[2019-03-10] MEDS: POTASSIUM CHLORIDE 10 MEQ in WATER FOR INJECTION 1 100ML.BAG IVPB SCH ×2 (08:37→10:19)
--- NOTE | 2019-03-10 20:37 | P.DS ---
Providers Date of admission: 03/06/19 12:22 Attending physician: Mars Reynolds Consults: 03/06/19 12:22 Consult Physician Urgent Consulting Provider: Marcela Enrique Consult Reason/Comments: Liver failure Do you want consulting provider notified?: Yes 03/06/19 21:02 Consult Physician Routine Consulting Provider: Cara Ross Consult Reason/Comments: chest pain Do you want consulting provider notified?: Yes, Notify in am 03/07/19 04:12 Consult Physician Routine Consulting Provider: Ragini Rae Consult Reason/Comments: ICU managment Do you want consulting provider notified?: Yes, Notify in am 03/08/19 07:41 Consult Physician Routine Consulting Provider: Adrianne Higgins Consult Reason/Comments: Altered mental status Do you want consulting provider notified?: Yes Primary care physician: Mars Reynolds - Discharge Diagnosis(es) (1) Alcoholism Current Visit: Yes Status: Acute (2) Jaundice Current Visit: No Status: Acute Hospital Course: This is discharge summary on a 33-year-old white male who is essentially admitted for spontaneous bacterial peritonitis with alcoholic hepatitis. The patient had significant alcohol withdrawal requiring sedation with Ativan and Haldol. The patient's ammonia level yo-yoed for many days and his bilirubin was static we elevated. Due to his lack of recovery, it was suggested to transfer to tertiary care center for appropriate medical ICU and hepatology treatment. The patient was transferred once bed is available and will follow up on discharge. Prognosis is guarded secondary to his multiple comorbidities. Prior to his impending de, the patient admitted to drinking about 100 shots of liquor in the prior week. Patient Condition at Discharge: Critical Plan - Discharge Summary Discharge Rx Participant: Yes New Discharge Prescriptions: No Action Metoprolol Tartrate [Lopressor] 50 mg PO BID Dextroamphetamine/Amphetamine [Adderall] 30 mg PO BID Discharge Medication List Dextroamphetamine/Amphetamine [Adderall] 30 mg PO BID 07/24/18 [History] Metoprolol Tartrate [Lopressor] 50 mg PO BID 07/24/18 [History] Follow up Appointment(s)/Referral(s): Mars Reynolds MD [Primary Care Provider] - 1-2 days Activity/Diet/Wound Care/Special Instructions: Indigent funds needed at discharge
[2019-03-11] MEDS: SODIUM CHLORIDE 0.9% 1,000 ML IV SCH ×2 (00:13→12:09)
[2019-03-11] MEDS: VANCOMYCIN ORAL SOLUTION 250 MG/5 ML BOTTLE PO SCH ×4 (00:13→18:16)
[2019-03-11] MEDS: CHERRY FLAVOR 60 ML BOTTLE PO SCH ×4 (00:13→18:16)
[2019-03-11] MEDS: LORazepam 2 MG/ML INJ IV PRN ×11 (00:39→22:05)
[2019-03-11 06:27] LABS: Basophils # (A) 0.2 k/uL (0-0.2); Basophils % (A) 1 %; Eosinophils # (A) 0.4 k/uL (0-0.7); Eosinophils % (A) 2 %; HCT 37.7 % (39.0-53.0); HGB 12.1 gm/dL (13.0-17.5); Hypochromasia Slight; Lymphocytes # (A) 1.5 k/uL (1.0-4.8); Lymphocytes % (A) 9 %; MCH 36.9 pg (25.0-35.0); MCV 115.1 fL (80.0-100.0); Macrocytosis Marked; Mean Platelet Volume 6.4; Monocytes # (A) 0.8 k/uL (0-1.0); Monocytes % (A) 5 %; Neutrophils # (A) 13.2 k/uL (1.3-7.7); Neutrophils % (A) 80 %; Platelet Count 304 k/uL (150-450); RBC 3.27 m/uL (4.30-5.90); RDW 14.3 % (11.5-15.5); WBC 16.4 k/uL (3.8-10.6)
[2019-03-11] MEDS: THIAMINE 100 MG TAB PO SCH ×2 (06:32→18:16)
[2019-03-11 06:35] LABS: Polychromasia Present
[2019-03-11 06:58] LABS: African American GFR (CKD) >90 (>60 ml/min/1.73 sqM); Albumin 2.1 g/dL (3.5-5.0); Anion Gap 6 mmol/L; Calcium 7.7 mg/dL (8.4-10.2); Carbon Dioxide 20 mmol/L (22-30); Chloride 113 mmol/L (98-107); Glucose 97 mg/dL (74-99); Non-African American GFR(CKD) >90 (>60 ml/min/1.73 sqM); Sodium 139 mmol/L (137-145); Total Bilirubin 14.1 mg/dL (0.2-1.3)
[2019-03-11 07:01] LABS: ALT 19 U/L (21-72); AST 170 U/L (17-59); Alkaline Phosphatase 115 U/L (38-126); Blood Urea Nitrogen 8 mg/dL (9-20); Potassium 3.9 mmol/L (3.5-5.1)
--- NOTE | 2019-03-11 08:45 | PN ---
PROGRESS NOTE DATE OF SERVICE: March 11, 2019 This is a 33-year-old male with a recent discharge from the hospital on March 03. He was readmitted 3 days later on the 06 of March with vague complaints of abdominal pain, chest pain, and dizziness. He has a history of significant alcohol abuse and alcoholic liver disease with alcoholic withdrawal syndrome and cirrhosis. He is quite jaundiced with a very elevated bilirubin near 15. The patient has also had significantly elevated ammonia level. He was initially thought to have bacterial peritonitis. He has small amount of ascites. Paracentesis abdominis could not be accomplished. He does have a history of alcoholic hepatitis, previous IV heroin abuse, hepatitis C, hypertension, ongoing tobacco use with suspected COPD, anxiety/depression, ascites, vitamin B12 deficiency, and chronic anemia. Currently, he is not receiving any supplemental oxygen. His IV is saline at 100 mL an hour. The patient has been receiving significant amount of both Ativan and Haldol for agitation and confusion. I did speak to his mother and father today. They are in agreement to potentially discharge this patient to [facility]. PHYSICAL EXAMINATION: VITAL SIGNS: Currently, his temperature is 100.6, heart rate 93, respiratory rate 36, blood pressure 132/80, mean 97, saturations are 96% on room air. GENERAL: Appears in no acute distress. HEENT: Examination is grossly unremarkable. Mucous membranes are moist. No oral lesions. He has got significant scleral icterus. NECK: Supple. Full range of motion. No adenopathy. Neck veins are flat. CARDIOVASCULAR: Examination reveals regular rhythm and rate. Heart rate 93 beats per minute. S1, S2 normal. LUNGS: Reveal a few scattered rhonchi. Breath sounds equal. No crackles. ABDOMEN: Is distended. Bowel sounds are noted. No masses or tenderness. EXTREMITIES: Are intact. No cyanosis, clubbing, or significant edema. SKIN: Reveals significant jaundice. NEUROLOGIC: Examination is difficult to assess because of his poor mental status. He does move all 4 extremities. He mumbles quite a bit. He is somewhat lethargic and somnolent. LABS: Labs are reviewed. White count 16.4, hemoglobin 12.1, hematocrit 37.7, platelet count 304,000. His PT, INR were 17.7 and 1.8 from yesterday. Sodium 139, potassium 3.9, chloride 113, CO2 is 20. Anion gap is 6. BUN and creatinine were 8 and 0.77. His calcium 7.7. His total bilirubin room is 14.1, down from 14.7. AST is 170, ALT is 19, alkaline phosphatase is 115. Albumin 2.1. Microbiology thus far is negative. No recent x-ray. MEDICATIONS: Medications are reviewed. He is currently on Rocephin, [place] syrup, famotidine, Haldol p.r.n., lactulose, Ativan per CIWA protocol, metoprolol, nicotine patch, Zofran, potassium replacement, rifaximin, and oral vancomycin. He is on that because of his C difficile studies being positive. ASSESSMENT: 1. Severe alcoholic liver disease with possible spontaneous bacterial peritonitis. Paracentesis abdominis not able to be performed. 2. History of alcoholic hepatitis. 3. History of chronic alcohol abuse. 4. Previous history of IV heroin use. 5. History of hepatitis C. 6. History of hypertension. 7. Ongoing tobacco use with possible underlying chronic obstructive pulmonary disease. 8. History of anxiety/depression. 9. Mild ascites. 10.Vitamin B12 deficiency. 11.Mild anemia. 12.Hyperbilirubinemia. 13.Hyperammonemia. 14.Coagulopathy of chronic liver disease. 15.Clostridium difficile colitis, currently being treated. PLAN: The plan is to potentially transfer the patient to [facility]. The patient has not done well. I believe he needs to be at a hospital where they have an active liver program. His overall prognosis though remains poor. I did speak to his family about this. They were in agreement. His mental status is poor despite treating his alcohol withdrawal and his elevated ammonia level. We will continue to follow. Additional recommendations and suggestions are forthcoming. MMODL / IJN: [id number] /
[2019-03-11] MEDS: FAMOTIDINE 20 MG TAB PO SCH ×2 (08:46→20:31)
[2019-03-11] MEDS: LACTULOSE 20 GM/30 ML CUP PO SCH ×3 (08:46→22:04)
[2019-03-11] MEDS: METOPROLOL TARTRATE 50 MG TAB PO SCH ×2 (08:46→20:31)
[2019-03-11] MEDS: NICOTINE 14MG/24HR PATCH TRANSDERM SCH (08:46)
[2019-03-11] MEDS: RIFAXIMIN 550 MG TABLET PO SCH ×2 (08:47→20:32)
[2019-03-11 10:42] VITALS: BMI 41.1
[2019-03-11] MEDS: HALOPERIDOL LACTATE 5 MG/ML 1 ML VIAL IVP PRN (13:28)
[2019-03-11 22:43] VITALS: BP 109/64; PULSE 95; RESP 31; TEMP 100.6
--- NOTE | 2019-03-16 16:11 | CDI ---
Documentation Clarification Form Date: 03/16/2019 From: Dana Kinney Phone: If questions call Daisy Vang @ [phone], Hours-8:30 am & 5 pm M- F Admit Date: 03/06/2019 12:22:00 PM Patient Name: Dex Sánchez Visit Number: [id number] Discharge Date: 03/11/2019 10:18:00 PM ATTENTION: The Clinical Documentation Specialists (CDI) and [facility] Coding Staff appreciate your assistance in clarifying documentation. Please respond to the clarification below the line at the bottom and electronically sign. The CDI & [facility] Coding staff will review the response and follow-up if needed. Please note: Queries are made part of the Legal Health Record. If you have any questions, please contact the author of this message via ITS. Dr. Mars Reynolds The diagnosis severe sepsis was documented in the H&P, but is not noted in subsequent documentation. History/Risk Factors: spontaneous bacterial peritonitis, alcoholism w hepatitis & cirrhoisis w ascites, C diff Clinical Indicators: Diffuse abdominal pain, fever, lactic acid najma-Y, lactic acid-2.6, Bilirubin-15.1, WBC-9.5/11.6, Treatment: IV Rocephin, IV fluids, IV Dilaudid, transfer to [facility] Please clarify if the sepsis was Present/active/treated this admission Sepsis Ruled out Other, please specify Clinically unable to determine The patient has an element of sepsis which was present on admission. MARYD
== END 2019-03-11 22:18 | disposition short-term general hospital (02) | DRG 871 ==
LOC: EC 09:32 → 3SCARD 12:22 → 2SICU 03-07 04:38
PROVIDERS: ADMIT Family Medicine; ATTEND Family Medicine
DX: A41.9 Sepsis, unspecified organism (principal); K65.2 Spontaneous bacterial peritonitis; E87.2 Acidosis; D68.4 Acquired coagulation factor deficiency; F10.239 Alcohol dependence with withdrawal, unspecified; A04.72 Enterocolitis due to Clostridium difficile, not specified as recurrent; R65.20 Severe sepsis without septic shock; K70.11 Alcoholic hepatitis with ascites; K70.31 Alcoholic cirrhosis of liver with ascites; K70.40 Alcoholic hepatic failure without coma; B18.2 Chronic viral hepatitis C; D64.9 Anemia, unspecified; E87.6 Hypokalemia; E53.8 Deficiency of other specified B group vitamins; I10 Essential (primary) hypertension; F32.9 Major depressive disorder, single episode, unspecified; F41.9 Anxiety disorder, unspecified; F11.11 Opioid abuse, in remission; Y90.5 Blood alcohol level of 100-119 mg/100 ml; F17.210 Nicotine dependence, cigarettes, uncomplicated; Z79.899 Other long term (current) drug therapy; Z71.41 Alcohol abuse counseling and surveillance of alcoholic; Z87.01 Personal history of pneumonia (recurrent); Z81.4 Family history of other substance abuse and dependence; Z82.49 Family history of ischemic heart disease and other diseases of the circulatory system
CPT/HCPCS: 36415; 71046; 76705; 80053; 80320; 81001; 82140; 82248; 83605; 83735; 84484; 85025; 85027; 85610; 85730; 87040; 87324; 93005; 93306; 95819; 96365; 96375; 99291

== ENCOUNTER 2019-09-08 18:50 | Emergency (ER) | payer OTHER ==
--- NOTE | 2019-09-08 20:07 | ED ---
General Adult HPI - General Chief complaint: Chest Pain Stated complaint: Chest Pain, Weakness Time Seen by Provider: 09/08/19 19:03 Source: patient Mode of arrival: EMS Limitations: no limitations - History of Present Illness Initial comments: 34-year-old male patient with a past medical history significant for end-stage renal disease with dialysis, hypertension, hepatitis, chronic alcohol abuse presents to the emergency department today for evaluation of chest pain. Patient states he has had the pain for the last week. Patient states that the pain is constant and generalized over his chest. Denies any radiation of the pain through to his back. Denies any shortness of breath. States he does have a chronic cough for the last three months. Patient states his last dialysis was performed on Thursday he did miss his Thursday appointment and appointment reportedly due to his chest pain being too bad. Patient does take oxycodone for chronic pain, but states it is not working. Patient denies any nausea or vomiting. Denies abdominal pain. Denies any lower extremity swelling, pain, or redness. Patient denies any recent rash, fever, chills, diarrhea, constipation, back pain, numbness, tingling, dizziness, weakness, headache, visual changes, or any other complaints. - Related Data Home Medications Medication Instructions Recorded Confirmed Diazepam [Valium] 10 mg PO BID 09/08/19 09/08/19 Folic Acid 1 mg PO DAILY 09/08/19 09/08/19 Furosemide [Lasix] 80 mg PO DAILY 09/08/19 09/08/19 QUEtiapine [SEROquel] 50 mg PO HS 09/08/19 09/08/19 oxyCODONE HCL [oxyCODONE HCL (IR)] 10 mg PO BID 09/08/19 09/08/19 Allergies Allergy/AdvReac Type Severity Reaction Status Date / Time No Known Allergies Allergy Verified 09/08/19 20:17 Review of Systems ROS Statement: Those systems with pertinent positive or pertinent negative responses have been documented in the HPI. ROS Other: All systems not noted in ROS Statement are negative. 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 Mother Family Medical History: Hypertension General Exam Limitations: no limitations General appearance: alert, in no apparent distress, other (This is a well- developed, well-nourished adult male patient in no acute distress. Vital signs upon presentation are temperature 98.1F, pulse 93, respirations 18, blood pressure 121/85, pulse ox 100% on room air.) Respiratory exam: Present: normal lung sounds bilaterally. Absent: respiratory distress, wheezes, rales, rhonchi, stridor Cardiovascular Exam: Present: regular rate, normal rhythm, normal heart sounds. Absent: systolic murmur, diastolic murmur, rubs, gallop, clicks GI/Abdominal exam: Present: soft, normal bowel sounds. Absent: distended, tenderness, guarding, rebound, rigid Neurological exam: Present: alert, oriented X3, CN II-XII intact Psychiatric exam: Present: normal affect, normal mood Skin exam: Present: warm, dry, intact, normal color. Absent: rash Course Vital Signs 09/08/19 09/08/19 18:53 22:54 Temperature 98.1 F 98.2 F Pulse Rate 93 87 Respiratory 18 16 Rate Blood Pressure 121/85 158/60 O2 Sat by Pulse 100 97 Oximetry EKG Findings - EKG Comments: EKG Findings:: EKG obtained at 1859 shows normal sinus rhythm with a prolonged QT interval. Ventricular rate is 93, SC interval 122, QRS duration 92, QT 388, QTC 482. No evidence of ST elevation or depression. Medical Decision Making - Medical Decision Making 34-year-old male patient presented to the emergency department today for evaluation of chest pain 1 week. Physical examination revealed clear equal lung sounds. Pain is not reproducible palpation. Abdomen is soft and nontender. Labs reviewed and did reveal hemoglobin of 10.7. Sodium 136. BUN 57, creatinine 8.46 consistent with his end-stage renal disease. Report was negative. EKG showed no ST elevation or depression. Chest x-ray showed no acute cardiopulmonary process. Upon reevaluation patient is resting comfortably in bed. He is eating a sandwich and drinking a drink. I did discuss discharge with the patient. He does admit to calling an ambulance because his grandparents kicked him out of his house had no place to go. He will be making phone calls to find a place to go, but plan will still be for discharge. Patient is agreeable. Return parameters were discussed in detail. - Lab Data Result diagrams: 09/08/19 20:11 09/08/19 20:11 Lab Results 09/08/19 09/08/19 09/08/19 Range/Units 20:11 20:11 20:11 WBC 3.7 L (3.8-10.6) k/uL RBC 3.49 L (4.30-5.90) m/uL Hgb 10.7 L (13.0-17.5) gm/dL Hct 33.4 L (39.0-53.0) % MCV 95.8 (80.0-100.0) fL MCH 30.7 (25.0-35.0) pg MCHC 32.0 (31.0-37.0) g/dL RDW 14.9 (11.5-15.5) % Plt Count 139 L (150-450) k/uL Neutrophils % 52 % Lymphocytes % 26 % Monocytes % 8 % Eosinophils % 10 % Basophils % 1 % Neutrophils # 1.9 (1.3-7.7) k/uL Lymphocytes # 1.0 (1.0-4.8) k/uL Monocytes # 0.3 (0-1.0) k/uL Eosinophils # 0.4 (0-0.7) k/uL Basophils # 0.0 (0-0.2) k/uL PT 11.5 (9.0-12.0) sec INR 1.1 (<1.2) APTT 27.8 (22.0-30.0) sec Sodium 136 L (137-145) mmol/L Potassium 4.1 (3.5-5.1) mmol/L Chloride 98 (98-107) mmol/L Carbon Dioxide 25 (22-30) mmol/L Anion Gap 13 mmol/L BUN 57 H (9-20) mg/dL Creatinine 8.46 H* (0.66-1.25) mg/dL Est GFR (CKD-EPI)AfAm 9 (>60 ml/min/1.73 sqM) Est GFR (CKD-EPI)NonAf 7 (>60 ml/min/1.73 sqM) Glucose 84 (74-99) mg/dL Calcium 9.5 (8.4-10.2) mg/dL Magnesium 1.5 L (1.6-2.3) mg/dL Total Bilirubin 1.1 (0.2-1.3) mg/dL AST 51 (17-59) U/L ALT 19 (4-49) U/L Alkaline Phosphatase 163 H (38-126) U/L Troponin I (0.000-0.034) ng/mL Total Protein 7.9 (6.3-8.2) g/dL Albumin 4.0 (3.5-5.0) g/dL Lipase (23-300) U/L 09/08/19 09/08/19 Range/Units 20:11 20:11 WBC (3.8-10.6) k/uL RBC (4.30-5.90) m/uL Hgb (13.0-17.5) gm/dL Hct (39.0-53.0) % MCV (80.0-100.0) fL MCH (25.0-35.0) pg MCHC (31.0-37.0) g/dL RDW (11.5-15.5) % Plt Count (150-450) k/uL Neutrophils % % Lymphocytes % % Monocytes % % Eosinophils % % Basophils % % Neutrophils # (1.3-7.7) k/uL Lymphocytes # (1.0-4.8) k/uL Monocytes # (0-1.0) k/uL Eosinophils # (0-0.7) k/uL Basophils # (0-0.2) k/uL PT (9.0-12.0) sec INR (<1.2) APTT (22.0-30.0) sec Sodium (137-145) mmol/L Potassium (3.5-5.1) mmol/L Chloride (98-107) mmol/L Carbon Dioxide (22-30) mmol/L Anion Gap mmol/L BUN (9-20) mg/dL Creatinine (0.66-1.25) mg/dL Est GFR (CKD-EPI)AfAm (>60 ml/min/1.73 sqM) Est GFR (CKD-EPI)NonAf (>60 ml/min/1.73 sqM) Glucose (74-99) mg/dL Calcium (8.4-10.2) mg/dL Magnesium (1.6-2.3) mg/dL Total Bilirubin (0.2-1.3) mg/dL AST (17-59) U/L ALT (4-49) U/L Alkaline Phosphatase (38-126) U/L Troponin I 0.020 (0.000-0.034) ng/mL Total Protein (6.3-8.2) g/dL Albumin (3.5-5.0) g/dL Lipase 64 (23-300) U/L - Radiology Data Radiology results: report reviewed, image reviewed Two-view x-ray of the chest is obtained. Report was reviewed in its entirety. Impression by Dr. Marinelli shows no acute cardiopulmonary process. Disposition Clinical Impression: Chest pain Disposition: HOME SELF-CARE Condition: Good Instructions (If sedation given, give patient instructions): Chest Pain (ED) Additional Instructions: Follow up with your primary care physician for recheck in the morning. Go to dialysis tomorrow. Return to the emergency department immediately for any new, worsening, or concerning symptoms. Is patient prescribed a controlled substance at d/c from ED?: No Referrals: Maksim Schultz MD [Primary Care Provider] - 1-2 days Time of Disposition: 22:03
[2019-09-08 20:22] LABS: Basophils % (A) 1 %; Eosinophils # (A) 0.4 k/uL (0-0.7); Eosinophils % (A) 10 %; HCT 33.4 % (39.0-53.0); HGB 10.7 gm/dL (13.0-17.5); Lymphocytes % (A) 26 %; MCH 30.7 pg (25.0-35.0); MCV 95.8 fL (80.0-100.0); Mean Platelet Volume 8.5; Monocytes # (A) 0.3 k/uL (0-1.0); Monocytes % (A) 8 %; Neutrophils # (A) 1.9 k/uL (1.3-7.7); Neutrophils % (A) 52 %; Platelet Count 139 k/uL (150-450); RBC 3.49 m/uL (4.30-5.90); RDW 14.9 % (11.5-15.5); WBC 3.7 k/uL (3.8-10.6)
--- NOTE | 2019-09-08 20:28 | XR ---
EXAMINATION TYPE: XR chest 2V DATE OF EXAM: 09/08/2019 COMPARISON: 03/06/2019 HISTORY: Chest pain TECHNIQUE: Frontal and lateral views of the chest are obtained. FINDINGS: There is no focal air space opacity. No evidence for pneumothorax. No pleural effusion. Large bore central venous line is in place. No ev idence for pneumothorax. The cardiac silhouette size is within normal limits. The osseous structures are grossly intact. IMPRESSION: 1. No acute cardiopulmonary process.
[2019-09-08 20:30] LABS: Calcium 9.5 mg/dL (8.4-10.2); Magnesium 1.5 mg/dL (1.6-2.3); Potassium 4.1 mmol/L (3.5-5.1); Total Bilirubin 1.1 mg/dL (0.2-1.3); Total Protein 7.9 g/dL (6.3-8.2)
[2019-09-08 20:45] LABS: INR 1.1 (<1.2); Partial Thromboplastin Time 27.8 sec (22.0-30.0); Prothrombin Time 11.5 sec (9.0-12.0)
[2019-09-08 22:54] VITALS: BP 158/60; PULSE 87; RESP 16; TEMP 98.2
== END 2019-09-08 22:55 | disposition home or self-care (01) ==
LOC: EC 18:50
DX: R07.9 Chest pain, unspecified (principal); I12.0 Hypertensive chronic kidney disease with stage 5 chronic kidney disease or end stage renal disease; F41.9 Anxiety disorder, unspecified; F32.9 Major depressive disorder, single episode, unspecified; Z79.899 Other long term (current) drug therapy; Z87.891 Personal history of nicotine dependence; Z99.2 Dependence on renal dialysis
CPT/HCPCS: 36415; 71046; 80053; 83690; 83735; 84484; 85025; 85610; 85730; 93005; 99285

== ENCOUNTER 2019-09-12 21:44 | Emergency (ER) | payer OTHER ==
[2019-09-12] MEDS ORDERED: LIDOCAINE 1% INJ 10MG/ML (20 ML MDV) SQ STA (22:21)
--- NOTE | 2019-09-12 22:42 | XR ---
EXAMINATION TYPE: XR chest 1V DATE OF EXAM: 09/12/2019 COMPARISON: 09/08/2019 HISTORY: Chest pain TECHNIQUE: Single view. FINDINGS: Heart is normal. Lungs are clear of consolidation. There are no hilar masses. There is left-sided babatunde tral venous catheter with tip in the superior vena cava. There is no pleural effusion. IMPRESSION: Normal chest. No change.
--- NOTE | 2019-09-12 23:55 | ED ---
General Adult HPI - General Chief complaint: Skin/Abscess/Foreign Body Stated complaint: Post op issue Time Seen by Provider: 09/12/19 21:52 Source: patient, RN notes reviewed, old records reviewed Mode of arrival: ambulatory Limitations: no limitations - History of Present Illness Initial comments: 34-year-old male patient past history significant for kidney failure on hemodialysis presents to ED for evaluation of his primary hemodialysis catheter. Patient reports that he has 2 sutures which keep the catheter tacked down however when of them came out today when he changed his dressing. Denies any other physical complaints at this time. Systemic: Pt denies fatigue, fever/chills, rash. Pt denies weakness, night sweats, weight loss. Neuro: Pt denies headache, visual disturbances, syncope or pre-syncope. HEENT: Pt denies ocular discharge or irritation, otalgia, rhinorrhea, pharyngitis or notable lymphadenopathy. Cardiopulmonary: Pt denies chest pain, SOB, heart palpitations, dyspnea on exertion. Abdominal/GI: Pt denies abdominal pain, n/v/d. : Pt denies dysuria, burning w/ urination, frequency/urgency. Denies new onset urinary or bowel incontinence. MSK: Pt denies myalgia, loss of strength or function in extremities. Neuro: Pt denies new onset weakness, paresthesias. - Related Data Home Medications Medication Instructions Recorded Confirmed Diazepam [Valium] 10 mg PO BID 09/08/19 09/08/19 Folic Acid 1 mg PO DAILY 09/08/19 09/08/19 Furosemide [Lasix] 80 mg PO DAILY 09/08/19 09/08/19 QUEtiapine [SEROquel] 50 mg PO HS 09/08/19 09/08/19 oxyCODONE HCL [oxyCODONE HCL (IR)] 10 mg PO BID 09/08/19 09/08/19 Allergies Allergy/AdvReac Type Severity Reaction Status Date / Time No Known Allergies Allergy Verified 09/08/19 20:17 Review of Systems ROS Statement: Those systems with pertinent positive or pertinent negative responses have been documented in the HPI. ROS Other: All systems not noted in ROS Statement are negative. 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 Mother Family Medical History: Hypertension General Exam - General Exam Comments Initial Comments: Constitutional: NAD, AOX3, Pt has pleasant affect. HEENT: NC/AT, trachea midline, neck supple, no lymphadenopathy. Posterior pharynx non erythematous, without exudates. External ears appear normal, without discharge. Mucous membranes moist. Eyes PERRLA, EOM intact. There is no scleral icterus. No pallor noted. Cardiopulmonary: RRR, no murmurs, rubs or gallops, no JVD noted. Lungs CTAB in anterior and posterior caballero. No peripheral edema. Abdominal exam: Abdomen soft and non-distended. Abdomen non-tender to palpation in all 4 quadrants. Bowel sounds active in LLQ. No hepatosplenomegaly. No ecchymosis Neuro: CN II-XII grossly intact. No nuchal rigidity. No raccon eyes, no escobar sign. No cervical spinal tenderness. Derm: Hemodialysis catheter intact, area cleaned in sterile fashion, no signs of infection, suture replaced. Sterile dressing placed. Limitations: no limitations Course Vital Signs 09/12/19 09/12/19 21:45 23:59 Temperature 98 F 98.2 F Pulse Rate 134 H 100 Respiratory 18 16 Rate Blood Pressure 135/88 133/77 O2 Sat by Pulse 98 98 Oximetry Procedures - Procedures Initial comment: Suture placed for hemodialysis catheter. One simple interrupted suture of 5-0 placed. Area cleaned in sterile fashion using 3 chlora preps. 1 mL lidocaine administered subcutaneously. Sterile dressing placed. Medical Decision Making - Medical Decision Making 34-year-old male patient past history significant for kidney failure on hemodialysis presents to ED for evaluation of his primary hemodialysis catheter. Patient reports that he has 2 sutures which keep the catheter tacked down however when of them came out today when he changed his dressing. Denies any other physical complaints at this time. Patient vital signs stable, afebrile. Physical exam displayed: Hemodialysis catheter intact, area cleaned in sterile fashion, no signs of infection, suture replaced. Sterile dressing placed. One simple interrupted suture used. One view chest displays central venous catheter with tip in SVC, patient discharged will follow up with primary care provider and scheduled hemodialysis session tomorrow. Case discussed with Dr. oCnroy. Disposition Clinical Impression: Vascular dialysis catheter in place Disposition: HOME SELF-CARE Condition: Stable Additional Instructions: Keep area clean and dry. Follow-up at dialysis clinic tomorrow as scheduled. Return to ER if condition worsens in any way. Monitor for signs and symptoms of infection. Is patient prescribed a controlled substance at d/c from ED?: No Referrals: Maksim Schultz MD [Primary Care Provider] - 1-2 days
[2019-09-13] VITALS: BP 133/77; PULSE 100; RESP 16; TEMP 98.2
== END 2019-09-12 23:59 | disposition home or self-care (01) ==
LOC: EC 21:44
DX: T82.898A Other specified complication of vascular prosthetic devices, implants and grafts, initial encounter (principal); I12.9 Hypertensive chronic kidney disease with stage 1 through stage 4 chronic kidney disease, or unspecified chronic kidney disease; N18.9 Chronic kidney disease, unspecified; F32.9 Major depressive disorder, single episode, unspecified; Z87.891 Personal history of nicotine dependence; Z99.2 Dependence on renal dialysis; Z79.891 Long term (current) use of opiate analgesic; Z79.899 Other long term (current) drug therapy
CPT/HCPCS: 71045; 99284; 12001; J2001

== ENCOUNTER 2019-11-01 14:12 | Emergency (ER) | payer MEDICARE, OTHER ==
[2019-11-01 14:30] VITALS: RESP 17
--- NOTE | 2019-11-01 14:38 | ED ---
General Adult HPI - General Chief complaint: Overdose Stated complaint: overdose Time Seen by Provider: 11/01/19 14:22 Source: patient, EMS, RN notes reviewed Mode of arrival: EMS Limitations: no limitations - History of Present Illness Initial comments: Patient is a pleasant 34-year-old male presenting to the emergency department following an overdose. Patient reportedly snorted heroin. Patient states he is only done a couple times recently. Family then gave nasal Narcan. Patient woke up and returned back to normal. Patient feels like he is going through a tall this time and feels nauseated and shaky otherwise has no complaints. Patient states he used to inject heroin in the past. - Related Data Home Medications Medication Instructions Recorded Confirmed Diazepam [Valium] 10 mg PO BID 09/08/19 09/08/19 Folic Acid 1 mg PO DAILY 09/08/19 09/08/19 Furosemide [Lasix] 80 mg PO DAILY 09/08/19 09/08/19 QUEtiapine [SEROquel] 50 mg PO HS 09/08/19 09/08/19 oxyCODONE HCL [oxyCODONE HCL (IR)] 10 mg PO BID 09/08/19 09/08/19 Allergies Allergy/AdvReac Type Severity Reaction Status Date / Time No Known Allergies Allergy Verified 09/08/19 20:17 Review of Systems ROS Statement: Those systems with pertinent positive or pertinent negative responses have been documented in the HPI. ROS Other: All systems not noted in ROS Statement are negative. Constitutional: Denies: fever Eyes: Denies: eye pain ENT: Denies: ear pain Respiratory: Denies: cough Cardiovascular: Denies: chest pain Endocrine: Denies: fatigue Gastrointestinal: Reports: nausea, vomiting. 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 Mother Family Medical History: Hypertension General Exam Limitations: no limitations General appearance: alert, in no apparent distress Head exam: Present: normocephalic Eye exam: Present: normal appearance, PERRL ENT exam: Present: normal oropharynx Neck exam: Present: normal inspection Respiratory exam: Present: normal lung sounds bilaterally Cardiovascular Exam: Present: regular rate, normal rhythm GI/Abdominal exam: Present: soft. Absent: tenderness Extremities exam: Present: normal inspection, other (Track dumont right antecubital fossa) Neurological exam: Present: alert, CN II-XII intact. Absent: motor sensory deficit Psychiatric exam: Present: normal affect, normal mood Skin exam: Present: normal color Course Vital Signs 11/01/19 11/01/19 14:22 15:09 Temperature 97.3 F L Pulse Rate 103 H 110 H Respiratory 17 17 Rate Blood Pressure 137/87 151/93 O2 Sat by Pulse 100 98 Oximetry Medical Decision Making - Medical Decision Making Patient reevaluated and resting comfortably in bed. Patient is alert and appropriate. No complaints. Disposition Clinical Impression: Drug overdose Disposition: HOME SELF-CARE Condition: Stable Instructions (If sedation given, give patient instructions): Adult Overdose (ED) Additional Instructions: Discontinue heroin and other substances. Follow-up with primary care physician in the next couple of days for recheck. Consider rehab. Return for worsening symptoms or other concerns. Is patient prescribed a controlled substance at d/c from ED?: No Referrals: Maksim Schultz MD [Primary Care Provider] - 1-2 days Time of Disposition: 15:26
[2019-11-01 15:14] VITALS: BP 151/93; PULSE 110
[2019-11-01 15:40] VITALS: TEMP 99
== END 2019-11-01 16:05 | disposition home or self-care (01) ==
LOC: EC 14:12
DX: T40.1X1A Poisoning by heroin, accidental (unintentional), initial encounter (principal); F10.10 Alcohol abuse, uncomplicated; F12.90 Cannabis use, unspecified, uncomplicated; F41.9 Anxiety disorder, unspecified; F17.200 Nicotine dependence, unspecified, uncomplicated; F32.9 Major depressive disorder, single episode, unspecified; B19.20 Unspecified viral hepatitis C without hepatic coma; Z79.891 Long term (current) use of opiate analgesic; Z79.899 Other long term (current) drug therapy
CPT/HCPCS: 99284

== ENCOUNTER → 2019-11-10 | Outpatient (CLI) | payer MEDICARE, OTHER ==
--- NOTE | 2019-11-10 13:16 | US ---
EXAMINATION TYPE: US abdomen limited DATE OF EXAM: 11/10/2019 COMPARISON: 03/07/2019 CLINICAL HISTORY: K72.90 Hepatic failure, unspecified without coma. History of liver failure EXAM MEASUREMENTS: Liver Length: 16.2 cm Gallbladder Wall: 0.3 cm CBD: 0.5 cm Right Kidney: 9.0 x 4.4 x 4.4 cm Pancreas: obscured by overlying midline bowel gas Liver: Coarsened echo pattern Gallbladder: echogenic foci Evidence for sonographic Erazo's sign: yes CBD: visualized portions wnl, limited by overlying bowel gas Right Kidney: wnl IMPRESSION: 1. There are echogenic foci within the gallbladder. Correlate for gallstones. Consider follow-up HIDA scan. 2. Increased coarsened pattern to the liver is nonspecific and be seen with hepatic steatosis or hepa titis correlate clinically.
[2019-11-10 14:04] LABS: Basophils # (A) 0.1 k/uL (0-0.2); Basophils % (A) 1 %; Eosinophils # (A) 0.3 k/uL (0-0.7); Eosinophils % (A) 4 %; HCT 39.2 % (39.0-53.0); HGB 13.1 gm/dL (13.0-17.5); Hypochromasia Slight; Lymphocytes # (A) 1.6 k/uL (1.0-4.8); Lymphocytes % (A) 24 %; MCH 31.8 pg (25.0-35.0); MCHC 33.4 g/dL (31.0-37.0); MCV 95.1 fL (80.0-100.0); Mean Platelet Volume 7.6; Monocytes # (A) 0.5 k/uL (0-1.0); Monocytes % (A) 7 %; Neutrophils # (A) 4.2 k/uL (1.3-7.7); Neutrophils % (A) 62 %; Platelet Count 160 k/uL (150-450); RBC 4.12 m/uL (4.30-5.90); RDW 14.2 % (11.5-15.5); WBC 6.7 k/uL (3.8-10.6)
[2019-11-10 14:16] LABS: INR 1.1 (<1.2); Partial Thromboplastin Time 25.7 sec (22.0-30.0); Prothrombin Time 11.5 sec (9.0-12.0)
[2019-11-10 14:32] LABS: Calcium 10.3 mg/dL (8.4-10.2); Potassium 3.8 mmol/L (3.5-5.1); Total Bilirubin 1.7 mg/dL (0.2-1.3); Total Protein 9.2 g/dL (6.3-8.2)
== END | disposition home or self-care (01) ==
LOC: RADUSWWP 12:32
PROVIDERS: ATTEND Internal Medicine
DX: R93.2 Abnormal findings on diagnostic imaging of liver and biliary tract (principal); K72.90 Hepatic failure, unspecified without coma
CPT/HCPCS: 36415; 76705; 80053; 82105; 85025; 85610; 85730

== ENCOUNTER → 2020-03-30 | Outpatient (CLI) | payer MEDICARE, OTHER ==
--- NOTE | 2020-03-31 07:38 | US ---
EXAMINATION TYPE: US kidneys/renal and bladder DATE OF EXAM: 03/30/2020 COMPARISON: CT abdomen and pelvis February 27, 2019. CLINICAL HISTORY: N18.4 Chronic kidney disease stage 4. H/O ckd EXAM MEASUREMENTS: Right Kidney: 9.0 x 4.1 x 5.6 cm Left Kidney: 9.9 x 4.4 x 4.8 cm Right Kidney: No hydronephrosis or masses seen Left Kidney: No hydronephrosis or masses seen Bladder: wnl There is no evidence for hydronephrosis at this point in time. Increased cortical echogenicity is pre sent bilaterally. No nephrolithiasis is seen. No masses are identified on images saved. The urinary bladder is satisfactorily distended. Bilateral ureteral jets are not seen. IMPRESSION: No hydronephrosis is noted bilaterally.
== END | disposition home or self-care (01) ==
LOC: RADUSWWP 16:21
PROVIDERS: ATTEND Internal Medicine
DX: N18.4 Chronic kidney disease, stage 4 (severe) (principal)
CPT/HCPCS: 76770

== ENCOUNTER 2020-04-28 17:42 | Emergency (ER) | payer MEDICARE, OTHER ==
[2020-04-28 17:55] VITALS: RESP 18; TEMP 98.2
--- NOTE | 2020-04-28 18:26 | ED ---
General Adult HPI - General Chief complaint: Extremity Injury, Upper Stated complaint: Fistula issues Time Seen by Provider: 04/28/20 18:09 Source: patient Mode of arrival: ambulatory Limitations: no limitations - History of Present Illness Initial comments: Dictation was produced using [employer] dictation software. please excuse any grammatical, word or spelling errors. This patient was cared for during a federal and state declared state of emerg ency secondary to Covid 19 Chief Complaint: 35-year-old male presents with chief complaint of swelling around his AV fistula site in his left upper extremity. History of Present Illness: Patient is 35-year-old male he has history of end- stage renal disease. Patient states he had multiorgan failure earlier this year that required multiple rounds of dialysis. He had AV fistula that was initially placed in December. Patient states the fistula was performed at [facility] by Dr. Erazo. Patient's kidney function improved significantly and he has not had dialysis since March of this year. Patient states that today he noticed that there has been some swelling around his AV fistula surgical site and palpable thrill that spent more than usual. The ROS documented in this emergency department record has been reviewed and confirmed by me. Those systems with pertinent positive or negative responses have been documented in the HPI. All other systems are other negative and/or noncontributory. PHYSICAL EXAM: General Impression: Alert and oriented x3, not in acute distress HEENT: Normocephalic atraumatic, extra-ocular movements intact, pupils equal and reactive to light bilaterally, mucous membranes moist. Cardiovascular: Heart regular rate and rhythm Chest: Able to complete full sentences, no retractions, no tachypnea Abdomen: abdomen soft, non-tender, non-distended, no organomegaly Musculoskeletal: Pulses present and equal in all extremities, no peripheral shana ma Motor: no focal deficits noted Neurological: CN II-XII grossly intact, no focal motor or sensory deficits noted Left upper extremity: AV fistula site surgical scar clean dry and intact without any drainage, there is a palpable thrill and audible bruit. No appreciable swelling. Skin: Intact with no visualized rashes Psych: Normal affect and mood ED course: 35-year-old male presents with swelling around his AV fistula site. It appears that patient has not had dialysis in several weeks. Discussion with patient needs further continuation of the AV fistula. It appears that the AV fistula is working as it should be. As upon arrival shows heart rate of 105, rest of vital signs within acceptable limits. Laboratory evaluation obtained. CBC unremarkable. Metabolic panel shows cranial 3.32, BUN of 30. There is no old labs for recent comparison. Venous Doppler study of the left upper extremity shows no evidence of deep venous thrombosis in the left arm. So again is using as AV fistulas pain throughout the distal end noted connected to the brachial artery. No other concerning find ings seen on the ultrasound. Labs were discussed with patient. He is reevaluated at bedside at 8:12 PM. Patient's creatinine is around his baseline may be slightly higher. Patient still makes urine. Patient given some fluids. He will be discharged. He understands he needs to follow-up with his primary care doctor or his pulverizer operator on Thursday for lab training. Patient will be discharged. EKG interpretation: Ventricular rate 92, sinus rhythm,. 120, QRS 94, QTC 437. No IN prolongation, no QTC prolongation, no ST or T-wave changes noted. Overall, this EKG is unremarkable - Related Data Home Medications Medication Instructions Recorded Confirmed Diazepam [Valium] 10 mg PO BID 09/08/19 09/08/19 Furosemide [Lasix] 80 mg PO DAILY 09/08/19 09/08/19 QUEtiapine [SEROquel] 50 mg PO HS 09/08/19 09/08/19 RX: Folic Acid 1 mg PO DAILY 09/08/19 09/08/19 oxyCODONE HCL [oxyCODONE HCL (IR)] 10 mg PO BID 09/08/19 09/08/19 Allergies Allergy/AdvReac Type Severity Reaction Status Date / Time No Known Allergies Allergy Verified 04/28/20 17:50 Review of Systems ROS Statement: Those systems with pertinent positive or pertinent negative responses have been documented in the HPI. ROS Other: All systems not noted in ROS Statement are negative. 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, History of Any Multi-Drug Resistant Organisms: C-DIFF Past Surgical History: No Surgical Hx Reported Additional Past Surgical History / Comment(s): tracheotomy, PEG tube placement, stent in gall bladder, L arm fistula Past Anesthesia/Blood Transfusion Reactions: No Reported Reaction Past Psychological History: Anxiety, Depression Smoking Status: Current every day smoker Past Alcohol Use History: None Reported, Abuse, Daily Past Drug Use History: None Reported, Heroin, IV Drug Use, Marijuana - Past Family History Father Family Medical History: No Reported History Additional Family Medical History / Comment(s): Father is a heroin addict now on methadone. Mother Family Medical History: Hypertension General Exam Limitations: no limitations Course Vital Signs 04/28/20 17:50 Temperature 98.2 F Pulse Rate 105 H Respiratory 18 Rate Blood Pressure 177/93 O2 Sat by Pulse 98 Oximetry Medical Decision Making - Lab Data Result diagrams: 04/28/20 18:37 04/28/20 18:37 Lab Results 04/28/20 04/28/20 Range/Units 18:37 18:37 WBC 8.7 (3.8-10.6) k/uL RBC 4.46 (4.30-5.90) m/uL Hgb 13.2 (13.0-17.5) gm/dL Hct 41.1 (39.0-53.0) % MCV 92.2 (80.0-100.0) fL MCH 29.7 (25.0-35.0) pg MCHC 32.2 (31.0-37.0) g/dL RDW 13.9 (11.5-15.5) % Plt Count 189 (150-450) k/uL MPV 7.0 Neutrophils % 67 % Lymphocytes % 20 % Monocytes % 6 % Eosinophils % 6 % Basophils % 1 % Neutrophils # 5.8 (1.3-7.7) k/uL Lymphocytes # 1.8 (1.0-4.8) k/uL Monocytes # 0.5 (0-1.0) k/uL Eosinophils # 0.5 (0-0.7) k/uL Basophils # 0.1 (0-0.2) k/uL Sodium 140 (137-145) mmol/L Potassium 4.6 (3.5-5.1) mmol/L Chloride 112 H (98-107) mmol/L Carbon Dioxide 17 L (22-30) mmol/L Anion Gap 11 mmol/L BUN 38 H (9-20) mg/dL Creatinine 3.32 H (0.66-1.25) mg/dL Est GFR (CKD-EPI)AfAm 26 (>60 ml/min/1.73 sqM) Est GFR (CKD-EPI)NonAf 23 (>60 ml/min/1.73 sqM) Glucose 94 (74-99) mg/dL Calcium 10.0 (8.4-10.2) mg/dL Disposition Clinical Impression: A-V fistula Disposition: HOME SELF-CARE Condition: Good Instructions (If sedation given, give patient instructions): Arteriovenous Fis [facility] ([facility]) Is patient prescribed a controlled substance at d/c from ED?: No Referrals: Maksim Schultz MD [Primary Care Provider] - 1-2 days Time of Disposition: 20:13
[2020-04-28 18:50] LABS: Basophils # (A) 0.1 k/uL (0-0.2); Basophils % (A) 1 %; Eosinophils # (A) 0.5 k/uL (0-0.7); Eosinophils % (A) 6 %; HCT 41.1 % (39.0-53.0); HGB 13.2 gm/dL (13.0-17.5); Lymphocytes # (A) 1.8 k/uL (1.0-4.8); Lymphocytes % (A) 20 %; MCH 29.7 pg (25.0-35.0); MCHC 32.2 g/dL (31.0-37.0); MCV 92.2 fL (80.0-100.0); Monocytes # (A) 0.5 k/uL (0-1.0); Monocytes % (A) 6 %; Neutrophils # (A) 5.8 k/uL (1.3-7.7); Neutrophils % (A) 67 %; Platelet Count 189 k/uL (150-450); RBC 4.46 m/uL (4.30-5.90); RDW 13.9 % (11.5-15.5); WBC 8.7 k/uL (3.8-10.6)
[2020-04-28 19:02] LABS: Potassium 4.6 mmol/L (3.5-5.1)
[2020-04-28] MEDS ORDERED: SODIUM CHLORIDE 0.9% 1,000 ML IV STA (19:05)
--- NOTE | 2020-04-28 19:54 | US ---
EXAMINATION TYPE: US venous doppler duplex UE LT DATE OF EXAM: 04/28/2020 COMPARISON: NONE CLINICAL HISTORY: arm swelling. Left upper arm swelling/bruising noted today. Patient has upper left arm A/V fistula that is not longer used since March 2020. SIDE PERFORMED: left Left Arm: Negative for DVT. Negative for SVT. Left Basilic Vein is used as A/V Fistula and is patent throughout with distal end noted connected to brachial artery. High PSV arterial flow is noted within Fistula with turbulent/mosaic color flow note d distal fistula (wnl). At patient's bruise area at upper medial arm the patient's fistula is noted. IMPRESSION: No evidence of deep vein thrombosis in the left arm.
[2020-04-28 20:33] VITALS: BP 159/96; PULSE 98
== END 2020-04-28 20:36 | disposition home or self-care (01) ==
LOC: EC 17:42
DX: I77.0 Arteriovenous fistula, acquired (principal); I12.0 Hypertensive chronic kidney disease with stage 5 chronic kidney disease or end stage renal disease; N18.6 End stage renal disease; F41.9 Anxiety disorder, unspecified; F32.9 Major depressive disorder, single episode, unspecified; F17.200 Nicotine dependence, unspecified, uncomplicated; Z79.899 Other long term (current) drug therapy
CPT/HCPCS: 36415; 80048; 85025; 93005; 96360; 99284

== ENCOUNTER → 2020-07-27 | Outpatient (CLI) | payer MEDICARE, OTHER ==
[2020-07-27 15:52] LABS: Appearance,Urine Clear (Clear); Bilirubin,Urine Negative (Negative); Blood,Urine Negative (Negative); Color,Urine Light Yellow; Glucose,Urine (UA) Negative (Negative); Ketones,Urine Negative (Negative); Leukocyte Esterase,Urine Negative (Negative); Nitrite,Urine Negative (Negative); Protein,Urine 1+ (Negative); RBC,Urine <1 /hpf (0-5); Specific Gravity,Urine 1.014 (1.001-1.035); Urobilinogen,Urine <2.0 mg/dL (<2.0); WBC,Urine <1 /hpf (0-5)
[2020-07-27 16:08] LABS: Creatinine,Urine Random 95.7 mg/dL; Protein/Creatinine Ratio,Urine 0.418
[2020-07-27 23:18] LABS: HCT 38.7 % (39.6-50.0); HGB 12.3 g/dL (13.0-17.0); MCH 29.3 pg (27.0-32.0); MCHC 31.8 g/dL (32.0-37.0); MCV 92.1 fL (80.0-97.0); Mean Platelet Volume 10.3 fL (9.5-12.2); Platelet Count 185 X 10*3/uL (140-440); RDW 13.7 % (11.5-14.5)
[2020-07-28 02:38] LABS: % Iron Saturation 19.42 (15.00-50.00); African American GFR (CKD) 35.4 (60.0-200.0); Albumin 4.8 g/dL (3.80-4.90); Albumin/Globulin Ratio 1.85 (1.60-3.17); Anion Gap 9.8 mmol/L (4.00-12.00); BUN/Creat Ratio 15.38 Ratio (12.00-20.00); Calcium 9.3 mg/dL (8.7-10.3); Carbon Dioxide 18.2 mmol/L (21.6-31.8); Ferritin 343.3 ng/mL (22.0-322.0); Globulin 2.6 g/dL (1.6-3.3); Non-African American GFR(CKD) 30.6 (60.0-200.0); Phosphorus 3.7 mg/dL (2.4-5.1); Potassium 4.6 mmol/L (3.5-5.5); Total Bilirubin 0.5 mg/dL (0.2-1.2); Total Protein 7.4 g/dL (6.2-8.2); Uric Acid 8.2 mg/dL (3.7-8.7)
== END | disposition home or self-care (01) ==
LOC: LABWHC1 14:55
PROVIDERS: ATTEND Nurse Practitioner Family
DX: D64.9 Anemia, unspecified (principal); N39.0 Urinary tract infection, site not specified; N18.4 Chronic kidney disease, stage 4 (severe); E55.9 Vitamin D deficiency, unspecified; N25.81 Secondary hyperparathyroidism of renal origin; M10.9 Gout, unspecified; R80.9 Proteinuria, unspecified
CPT/HCPCS: 36415; 80053; 81001; 82306; 82570; 82728; 83540; 83550; 83735; 83970; 84100; 84156; 84550; 85027

== ENCOUNTER → 2020-12-28 | Outpatient (CLI) | payer MEDICARE, OTHER ==
[2020-12-28 12:53] LABS: Appearance,Urine Clear (Clear); Bilirubin,Urine Negative (Negative); Blood,Urine Negative (Negative); Color,Urine Light Yellow; Glucose,Urine (UA) Negative (Negative); Ketones,Urine Negative (Negative); Leukocyte Esterase,Urine Negative (Negative); Nitrite,Urine Negative (Negative); PH, Urine 5.5 (5.0-8.0); Protein,Urine 1+ (Negative); RBC,Urine <1 /hpf (0-5); Specific Gravity,Urine 1.017 (1.001-1.035); Squamous Epithelial Cell,Urine <1 /hpf (0-4); Urobilinogen,Urine <2.0 mg/dL (<2.0); WBC,Urine <1 /hpf (0-5)
[2020-12-28 18:40] LABS: HCT 39.8 % (39.6-50.0); HGB 12.7 g/dL (13.0-17.0); MCH 29.5 pg (27.0-32.0); MCHC 31.9 g/dL (32.0-37.0); MCV 92.6 fL (80.0-97.0); Mean Platelet Volume 10.6 fL (9.5-12.2); Platelet Count 145 X 10*3/uL (140-440); RDW 13.5 % (11.5-14.5); WBC 5.51 X 10*3/uL (4.50-10.00)
[2020-12-28 22:05] LABS: Ferritin 216.2 ng/mL (22.0-322.0)
[2020-12-28 22:25] LABS: % Iron Saturation 16.67 (15.00-50.00); Magnesium 2.1 mg/dL (1.5-2.4)
[2020-12-28 22:26] LABS: African American GFR (CKD) 41.1 (60.0-200.0); Albumin 4.4 g/dL (3.80-4.90); Albumin/Globulin Ratio 1.57 (1.60-3.17); Anion Gap 10.2 mmol/L (4.00-12.00); BUN/Creat Ratio 13.48 Ratio (12.00-20.00); Calcium 9.7 mg/dL (8.7-10.3); Carbon Dioxide 25.8 mmol/L (21.6-31.8); Globulin 2.8 g/dL (1.6-3.3); Non-African American GFR(CKD) 35.5 (60.0-200.0); Phosphorus 4.7 mg/dL (2.4-5.1); Total Bilirubin 0.3 mg/dL (0.3-1.2); Total Protein 7.2 g/dL (6.2-8.2); Uric Acid 8.4 mg/dL (3.7-8.7)
[2020-12-29 06:47] LABS: Urine Creatinine 114.2 mg/dL
== END | disposition home or self-care (01) ==
LOC: LABWHC1 10:29
PROVIDERS: ATTEND Internal Medicine
DX: N18.32 Chronic kidney disease, stage 3b (principal); N39.0 Urinary tract infection, site not specified; N25.81 Secondary hyperparathyroidism of renal origin; E55.9 Vitamin D deficiency, unspecified; D64.9 Anemia, unspecified; M10.9 Gout, unspecified
CPT/HCPCS: 36415; 80053; 81001; 82043; 82306; 82570; 82728; 83540; 83550; 83735; 83970; 84100; 84550; 85027

== ENCOUNTER → 2021-04-30 | Outpatient (CLI) | payer OTHER ==
[2021-04-30 08:41] LABS: Appearance,Urine Clear (Clear); Bilirubin,Urine Negative (Negative); Blood,Urine Negative (Negative); Color,Urine Light Yellow; Glucose,Urine (UA) Negative (Negative); Ketones,Urine Negative (Negative); Leukocyte Esterase,Urine Negative (Negative); Nitrite,Urine Negative (Negative); Protein,Urine 1+ (Negative); RBC,Urine <1 /hpf (0-5); Specific Gravity,Urine 1.014 (1.001-1.035); Urobilinogen,Urine <2.0 mg/dL (<2.0)
[2021-04-30 11:22] LABS: HCT 42.8 % (39.6-50.0); HGB 13.5 g/dL (13.0-17.0); MCH 28.8 pg (27.0-32.0); MCHC 31.5 g/dL (32.0-37.0); MCV 91.3 fL (80.0-97.0); Mean Platelet Volume 10.9 fL (9.5-12.2); Platelet Count 136 X 10*3/uL (140-440); RBC 4.69 X 10*6/uL (4.40-5.60); RDW 13.5 % (11.5-14.5); WBC 4.19 X 10*3/uL (4.50-10.00)
[2021-04-30 12:27] LABS: Urine Creatinine 78.3 mg/dL (39.0-259.0)
[2021-04-30 12:35] LABS: % Iron Saturation 16.74 (15.00-50.00); Albumin 4.2 g/dL (3.8-4.9); Albumin/Globulin Ratio 1.41 (1.60-3.17); Anion Gap 13.8 mmol/L (10.00-18.00); BUN/Creat Ratio 16.51 Ratio (12.00-20.00); Calcium 9.8 mg/dL (8.7-10.3); Non-African American GFR(CKD) 38.9 (60.0-200.0); Phosphorus 4.4 mg/dL (2.4-5.1); Potassium 4.7 mmol/L (3.5-5.5); Total Bilirubin 0.2 mg/dL (0.30-1.20); Total Protein 7.2 g/dL (6.2-8.2); Uric Acid 6.5 mg/dL (3.7-8.7)
== END | disposition home or self-care (01) ==
LOC: LABWHC1 07:22
PROVIDERS: ATTEND Nurse Practitioner Acute Care
DX: N18.32 Chronic kidney disease, stage 3b (principal)
CPT/HCPCS: 36415; 80053; 81001; 82043; 82306; 82570; 82728; 83540; 83550; 83735; 83970; 84100; 84550; 85027

== ENCOUNTER 2021-09-08 15:56 | Emergency (ER) | payer OTHER ==
[2021-09-08 16:23] VITALS: BP 153/108; PULSE 88; RESP 18; TEMP 98.5
[2021-09-08] MEDS ORDERED: ACET/COD 300 MG/30 MG STARTER PACK 6 TAB BTL PO STA (17:16)
[2021-09-08] MEDS ORDERED: AMOXIC-POT CLAV 875-125MG 1 EACH TAB PO STA (17:16)
--- NOTE | 2021-09-08 17:18 | ED ---
ENT HPI - General Chief complaint: Dental/Oral Stated complaint: Oral pain Time Seen by Provider: 09/08/21 16:50 Source: patient, RN notes reviewed, old records reviewed Mode of arrival: ambulatory Limitations: no limitations - History of Present Illness Initial comments: Patient is a 36-year-old male who presents to the ER with complaints of right lower wisdom tooth pain. Patient reports that he has been told that he has an impacted wisdom tooth and was referred to an oral surgeon in [place] for follow- up. He reports that he has not been able to follow-up with them at this time. He states that for the past 3 days she's had significant pain and unable to eat or even drink due to the pain in his left lower wisdom tooth. Patient states that he's hada facial swelling. Denies foul odor or taste. Denies fever or chills. - Related Data Home Medications Medication Instructions Recorded Confirmed Diazepam [Valium] 10 mg PO BID 09/08/19 09/08/19 Folic Acid 1 mg PO DAILY 09/08/19 09/08/19 Furosemide [Lasix] 80 mg PO DAILY 09/08/19 09/08/19 QUEtiapine [SEROquel] 50 mg PO HS 09/08/19 09/08/19 oxyCODONE HCL [oxyCODONE HCL (IR)] 10 mg PO BID 09/08/19 09/08/19 Previous Rx's Medication Instructions Recorded Amoxic-Pot Clav 875-125Mg 1 tab PO Q12HR #20 tablet 09/08/21 [Augmentin 875-125] Allergies Allergy/AdvReac Type Severity Reaction Status Date / Time No Known Allergies Allergy Verified 09/08/21 16:23 Review of Systems ROS Statement: Those systems with pertinent positive or pertinent negative responses have been documented in the HPI. ROS Other: All systems not noted in ROS Statement are negative. 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, History of Any Multi-Drug Resistant Organisms: C-DIFF Past Surgical History: No Surgical Hx Reported Additional Past Surgical History / Comment(s): tracheotomy, PEG tube placement, stent in gall bladder, L arm fistula Past Anesthesia/Blood Transfusion Reactions: No Reported Reaction Past Psychological History: Anxiety, Depression Smoking Status: Former smoker Past Alcohol Use History: None Reported Past Drug Use History: None Reported - Past Family History Father Family Medical History: No Reported History Additional Family Medical History / Comment(s): Father is a heroin addict now on methadone. Mother Family Medical History: Hypertension General Exam - General Exam Comments Initial Comments: 36-year-old male. Alert and oriented. No acute distress. Limitations: no limitations General appearance: alert, in no apparent distress Head exam: Present: atraumatic, normocephalic, normal inspection Eye exam: Present: normal appearance, PERRL, EOMI. Absent: scleral icterus, conjunctival injection, periorbital swelling ENT exam: Present: normal exam, mucous membranes moist, other (Patient is im pacted left lower wisdom tooth. No evidence of gingival inflammation or abscess at this time.) Neck exam: Present: normal inspection. Absent: tenderness, meningismus, lympha denopathy Respiratory exam: Present: normal lung sounds bilaterally. Absent: respiratory distress, wheezes, rales, rhonchi, stridor Course Vital Signs 09/08/21 16:21 Temperature 98.5 F Pulse Rate 88 Respiratory 18 Rate Blood Pressure 153/108 O2 Sat by Pulse 100 Oximetry Medical Decision Making - Medical Decision Making 36-year-old male complains of left arm with some tooth discomfort she's had for many weeks but more severe for the past 3 days. He has evidence of multiple dental caries. His left lower wrist and tooth is somewhat impacted and cutting into the gum. No significant abscess noted at this time. Discussed with concern multiple dental caries around the area to treat for any early developing infection with antibiotic which abated concern for the onset of this pain. Advise doing warm tea bags and salt water rinses. Advised following up with oral surgeon as he is grossly referred to. Given a Tylenol 3 starter pack on discharge. Disposition Clinical Impression: Gingivitis, Impacted molar Disposition: HOME SELF-CARE Condition: Good Instructions (If sedation given, give patient instructions): Toothache (ED) Additional Instructions: Follow-up with dental surgeon. Take meds as prescribed. Patient should use salt water rinses and apply warm tea bag over that tooth and gum. Prescriptions: Amoxic-Pot Clav 875-125Mg [Augmentin 875-125] 1 tab PO Q12HR #20 tablet Is patient prescribed a controlled substance at d/c from ED?: No Referrals: Maksim Schultz MD [Primary Care Provider] - 1-2 days Time of Disposition: 17:16
== END 2021-09-08 17:27 | disposition home or self-care (01) ==
LOC: EC 15:56
DX: K05.00 Acute gingivitis, plaque induced (principal); K01.1 Impacted teeth; I10 Essential (primary) hypertension; F41.9 Anxiety disorder, unspecified; F32.A Depression, unspecified; Z87.891 Personal history of nicotine dependence
CPT/HCPCS: 99282

== ENCOUNTER → 2022-06-17 | Outpatient (CLI) | payer OTHER ==
[2022-06-18 01:18] LABS: Appearance,Urine Clear (Clear); Bilirubin,Urine Negative (Negative); Blood,Urine Negative (Negative); Color,Urine Yellow (Yellow); Ketones,Urine Negative (Negative); Nitrite,Urine Negative (Negative); PH, Urine 5.5 (5.0-8.0); Specific Gravity,Urine 1.021 (1.001-1.030); Urobilinogen,Urine 0.2 (0.2,1.0)
[2022-06-18 01:40] LABS: Bacteria,Urine None Seen /HPF (None Seen)
[2022-06-18 01:43] LABS: HCT 50.5 % (39.6-50.0); HGB 16.1 g/dL (13.0-17.0); MCH 28.5 pg (27.0-32.0); MCHC 31.9 g/dL (32.0-37.0); MCV 89.5 fL (80.0-97.0); Mean Platelet Volume 10.1 fL (9.5-12.2); NRBC Per 100 WBC 0 /100 WBCS (0.0-0.0); Platelet Count 229 X 10*3/uL (140-440); RBC 5.64 X 10*6/uL (4.40-5.60); RDW 14.3 % (11.5-14.5); WBC 8.73 X 10*3/uL (4.50-10.00)
[2022-06-19 05:33] LABS: % Iron Saturation 14.56 (15.00-50.00); African American GFR (CKD) 34.8 (60.0-200.0); Albumin 4.8 g/dL (3.8-4.9); Albumin/Globulin Ratio 1.65 (1.60-3.17); Anion Gap 15.3 mmol/L (10.00-18.00); BUN/Creat Ratio 15.67 Ratio (12.00-20.00); Blood Urea Nitrogen 40.9 mg/dL (9.0-27.0); Calcium 10.2 mg/dL (8.7-10.3); Carbon Dioxide 17.1 mmol/L (20.0-27.5); Globulin 2.9 g/dL (1.6-3.3); Magnesium 2.2 mg/dL (1.5-2.4); Phosphorus 4.8 mg/dL (2.4-5.1); Potassium 4.4 mmol/L (3.5-5.5); Total Bilirubin 0.5 mg/dL (0.30-1.20); Total Protein 7.7 g/dL (6.2-8.2); Uric Acid 8.1 mg/dL (3.7-8.7)
== END | disposition home or self-care (01) ==
LOC: LABWHC1 15:57
PROVIDERS: ATTEND Nurse Practitioner Family
DX: N18.32 Chronic kidney disease, stage 3b (principal)
CPT/HCPCS: 36415; 80053; 81001; 82043; 82306; 82570; 82728; 83540; 83550; 83735; 83970; 84100; 84550; 85027

== ENCOUNTER → 2022-08-14 | Day surgery (SDC) | payer OTHER ==
[~2022-08-14] MED LIST: ACETAMINOPHEN TAB 500 MG TAB ONE; ALPRAZolam 0.5 MG TAB PO PRN; DESMOPRESSIN ACETATE 24 MCG in SODIUM CHLORIDE 0.9% 50 ML IV ONE; HYDROmorphone 0.5 MG/0.5 ML SYRINGE IVP PRN
[2022-08-14 09:20] VITALS: TEMP 97.8
--- NOTE | 2022-08-14 10:59 | CT ---
EXAMINATION TYPE: CT biopsy renal LT DATE OF EXAM: 08/14/2022 COMPARISON: NONE HISTORY: Renal insufficiency CT DLP: 1947 mGycm The procedure was explained to the patient. The risks, complications, benefits, and alternatives wer e discussed and any questions were answered. Informed consent was obtained. Patient was placed pron e on the CT table and prepped and draped in the usual sterile fashion. Utilizing CT guidance, an 18 gauge core biopsy needle access into the left renal cortex was achieved and three 18 gauge core samples were obtained. The patient was stable throughout the procedure and r emained stable upon discharge. IMPRESSION: Successful 18 gauge core biopsy of the kidney function.
[2022-08-14 11:05] VITALS: BP 133/81; PULSE 110; RESP 16
== END ==
LOC: RADPROMAIN 08:01
PROVIDERS: ATTEND Internal Medicine
DX: I13.0 Hypertensive heart and chronic kidney disease with heart failure and stage 1 through stage 4 chronic kidney disease, or unspecified chronic kidney disease (principal); I50.9 Heart failure, unspecified; N18.32 Chronic kidney disease, stage 3b; Z99.2 Dependence on renal dialysis; A41.9 Sepsis, unspecified organism; N25.81 Secondary hyperparathyroidism of renal origin; Z86.19 Personal history of other infectious and parasitic diseases; J98.4 Other disorders of lung; K82.9 Disease of gallbladder, unspecified; K76.9 Liver disease, unspecified; Z80.0 Family history of malignant neoplasm of digestive organs; Z80.3 Family history of malignant neoplasm of breast; Z82.49 Family history of ischemic heart disease and other diseases of the circulatory system; Z83.3 Family history of diabetes mellitus; Z95.828 Presence of other vascular implants and grafts; Z79.899 Other long term (current) drug therapy
CPT/HCPCS: 50200; 77012; 86900; 86901; 86850; J2597; J1170

== ENCOUNTER → 2022-09-15 | Outpatient (CLI) | payer OTHER ==
[2022-09-15 20:32] LABS: Appearance,Urine Clear (Clear); Bilirubin,Urine Negative (Negative); Blood,Urine Negative (Negative); Color,Urine Yellow (Yellow); Ketones,Urine Negative (Negative); Nitrite,Urine Negative (Negative); Specific Gravity,Urine 1.015 (1.001-1.030); Urobilinogen,Urine 0.2 (0.2,1.0)
[2022-09-15 20:37] LABS: Bacteria,Urine None Seen /HPF (None Seen)
[2022-09-15 22:15] LABS: HCT 49.4 % (39.6-50.0); MCH 27.4 pg (27.0-32.0); MCHC 30.4 g/dL (32.0-37.0); MCV 90.3 fL (80.0-97.0); Mean Platelet Volume 10.5 fL (9.5-12.2); NRBC Per 100 WBC 0 /100 WBCS (0.0-0.0); Platelet Count 220 X 10*3/uL (140-440); RBC 5.47 X 10*6/uL (4.40-5.60); RDW 13.6 % (11.5-14.5); WBC 7.83 X 10*3/uL (4.50-10.00)
[2022-09-15 23:28] LABS: % Iron Saturation 8.51 (15.00-50.00); African American GFR (CKD) 46.3 (60.0-200.0); Albumin 4.3 g/dL (3.8-4.9); Albumin/Globulin Ratio 1.38 (1.60-3.17); Anion Gap 17.1 mmol/L (10.00-18.00); BUN/Creat Ratio 11.84 Ratio (12.00-20.00); Blood Urea Nitrogen 24.4 mg/dL (9.0-27.0); Calcium 10.1 mg/dL (8.7-10.3); Globulin 3.1 g/dL (1.6-3.3); Magnesium 2.4 mg/dL (1.5-2.4); Phosphorus 3.5 mg/dL (2.4-5.1); Potassium 4.8 mmol/L (3.5-5.5); Total Bilirubin 0.2 mg/dL (0.30-1.20); Total Protein 7.4 g/dL (6.2-8.2); Uric Acid 6.1 mg/dL (3.7-8.7)
== END | disposition home or self-care (01) ==
LOC: LABWHC1 14:07
PROVIDERS: ATTEND Nurse Practitioner Family
DX: E55.9 Vitamin D deficiency, unspecified (principal); N18.32 Chronic kidney disease, stage 3b; D63.1 Anemia in chronic kidney disease; N39.0 Urinary tract infection, site not specified; N25.81 Secondary hyperparathyroidism of renal origin; M10.9 Gout, unspecified
CPT/HCPCS: 36415; 80053; 81001; 82306; 82728; 83540; 83550; 83735; 83970; 84100; 84550; 85027

== ENCOUNTER 2022-12-09 07:10 | Emergency (ER) | payer OTHER ==
--- NOTE | 2022-12-09 07:48 | ED ---
General Adult HPI - General Chief complaint: Skin/Abscess/Foreign Body Stated complaint: abd pain,dizziness Time Seen by Provider: 12/09/22 07:17 Source: patient Mode of arrival: ambulatory Limitations: no limitations - History of Present Illness Initial comments: Dictation was produced using [employer] dictation software. please excuse any grammatical, word or spelling errors. Chief Complaint: 37-year-old male presents to the emergency department for concerns of bacteremia History of Present Illness: Patient 37-year-old male he was seen at urgent care yesterday for sores on his skin. Patient reports that the doctor at the urgent care told him that he may have bacteremia. Patient was concerned decided come to the emergency department to be evaluated. Patient states that for the last 48 hours he has not been feeling well. He is feeling generally weak and having low-grade fevers. He also reports cough and runny nose. Denies any obvious sick contacts. Patient has multiple comorbidities including end-stage renal disease, hemodialysis dependent, liver disease, pneumonia and hypertension. The ROS documented in this emergency department record has been reviewed and confirmed by me. Those systems with pertinent positive or negative responses have been documented in the HPI. All other systems are other negative and/or noncontributory. - Related Data Home Medications Medication Instructions Recorded Confirmed QUEtiapine [SEROquel] 50 mg PO HS 09/08/19 08/14/22 Dextroamphetamine/Amphetamine 30 mg PO BID 07/16/22 08/14/22 [Adderall] Sodium Bicarbonate 650 mg PO BID 07/16/22 08/14/22 calcitrioL [Calcitriol] 0.25 mcg PO WEEKLY 07/16/22 08/14/22 Dapagliflozin Propanediol [Farxiga] 5 mg PO DAILY 08/14/22 08/14/22 Ergocalciferol [Vitamin D2 (1250 1,250 mcg PO WEEKLY 08/14/22 08/14/22 Mcg = 73975 Iu)] Losartan Potassium 50 mg PO DAILY 08/14/22 08/14/22 Allergies Allergy/AdvReac Type Severity Reaction Status Date / Time No Known Allergies Allergy Verified 12/09/22 07:13 Review of Systems ROS Statement: Those systems with pertinent positive or pertinent negative responses have been documented in the HPI. ROS Other: All systems not noted in ROS Statement are negative. 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 "I was in a coma for 3 months" History of Any Multi-Drug Resistant Organisms: None Reported Past Surgical History: No Surgical Hx Reported Additional Past Surgical History / Comment(s): tracheotomy, PEG tube placement, stent in gall bladder, L arm fistula Past Anesthesia/Blood Transfusion Reactions: No Reported Reaction Past Psychological History: ADD/ADHD Smoking Status: Former smoker Past Alcohol Use History: None Reported Past Drug Use History: None Reported - Past Family History Father Family Medical History: No Reported History Additional Family Medical History / Comment(s): Father is a heroin addict now on methadone. Mother Family Medical History: Hypertension General Exam - General Exam Comments Initial Comments: PHYSICAL EXAM: General Impression: Alert and oriented x3, not in acute distress HEENT: Normocephalic atraumatic, extra-ocular movements intact, pupils equal and reactive to light bilaterally, mucous membranes moist. Cardiovascular: Heart regular rate and rhythm Chest: Able to complete full sentences, no retractions, no tachypnea, Lungs clear to auscultation bilaterally Abdomen: abdomen soft, non-tender, non-distended, no organomegaly Musculoskeletal: Pulses present and equal in all extremities, no peripheral edema Motor: no focal deficits noted Neurological: CN II-XII grossly intact, no focal motor or sensory deficits noted Skin: Intact with no visualized rashes Psych: Normal affect and mood Limitations: no limitations Course Vital Signs 12/09/22 12/09/22 12/09/22 07:11 08:56 10:58 Temperature 99.2 F 98 F 98.8 F Pulse Rate 111 H 86 85 Respiratory 20 18 18 Rate Blood Pressure 162/87 150/82 133/81 O2 Sat by Pulse 98 100 Oximetry Medical Decision Making - Medical Decision Making Was pt. sent in by a medical professional or institution (, PA, PARATRANSIT DRIVER, urgent care, hospital, or long-term...) When possible be specific @ -No Did you speak to anyone other than the patient for history (EMS, parent, family, police, friend...)? What history was obtained from this source @ -No Did you review nursing and triage notes (agree or disagree)? Why? @ -I reviewed and agree with nursing and triage notes Were old charts reviewed (outside hosp., previous admission, EMS record, old EKG, old radiological studies, urgent care reports/EKG's, long-term records)? Report findings @ -No old charts were reviewed Differential Diagnosis (chest pain, altered mental status, abdominal pain women, abdominal pain men, vaginal bleeding, musculoskeletal, weakness, fever, dyspnea, syncope, headache, dizziness, GI bleed, back pain, seizure, CVA, palpatations, mental health)? @ -Differential Fever: Pneumonia, viral URI, endocarditis, myocarditis, pericarditis, otitis, sinusitis, peritonsillar Abscess, retropharyngeal Abscess, epiglottitis, peritonitis, appendicitis, Yessi cystitis, diverticulitis, hepatitis, colitis, UTI, PID, TOA, pyelonephritis, prostatitis, epididymitis, meningitis, encep halitis, pulmonary embolism, CVA, thyroid storm, pancreatitis, adrenal crisis, cavernous sinus thrombosis, this is not meant to be an all-inclusive list. EKG interpreted by me (3pts min.). @ -My EKG interpretation: Ventricular rate 97, s RI interval 123, QRS 96, QTC 387. No RI prolongation, no QTC prolongation, no ST or T-wave changes noted. EKG compared to 04/20/2020 showing no changes. Overall, this EKG is unremarkable X-rays interpreted by me (1pt min.). @ -Chest x-ray shows no acute processes CT interpreted by me (1pt min.). @ -None done U/S interpreted by me (1pt. min.). @ -None done What testing was considered but not performed or refused? (CT, X-rays, U/S, labs)? Why? @ -None What meds were considered but not given or refused? Why? @ -None Did you discuss the management of the patient with other professionals (pr ofessionals i.e. , PA, PARATRANSIT DRIVER, lab, RT, psych nurse, drug abuse social worker, commercial door installer, teacher, forest officer, hospice case manager)? Give summary @ -No Was smoking cessation discussed for >3mins.? @ -No Was critical care preformed (if so, how long)? @ -No Were there social determinants of health that impacted care today? How? (Homelessness, low income, unemployed, alcoholism, drug addiction, transport ation, low edu. Level, literacy, decrease access to med. care, penitentiary, rehab)? @ -No Was there de-escalation of care discussed even if they declined (Discuss DNR or withdrawal of care, Hospice)? DNR status @ -No What co-morbidities impacted this encounter? (DM, HTN, Smoking, COPD, CAD, Cancer, CVA, ARF, Chemo, Hep., AIDS, mental health diagnosis, sleep apnea, morbid obesity)? @ -None Was patient admitted / discharged? Hospital course, mention meds given and route, prescriptions, significant lab abnormalities, going to OR and other pertinent info. @ -37-year-old male presents emergency department for constitutional symptoms. Vital signs upon arrival are within acceptable limits. Laboratory evaluation obtained. CBC, coag panel, metabolic panel is unremarkable. Urinalysis negative. Viral testing is negative. Blood cultures pending. Patient's well- appearing. Highly doubt that patient's bacteremic. Patient was discharged. Advised up with primary care doctor Undiagnosed new problem with uncertain prognosis? @ -No Drug Therapy requiring intensive monitoring for toxicity (Heparin, Nitro, Insu nick, Cardizem)? @ -No Were any procedures done? @ -No Diagnosis/symptom? Acute, or Chronic, or Acute on Chronic? Uncomplicated (without systemic symptoms) or Complicated (systemic symptoms)? @ -1. Constitutional symptoms Side effects of treatment? @ -No Exacerbation, Progression, or Severe Exacerbation? @ -No Poses a threat to life or bodily function? How? (Chest pain, USA, RI, pneumonia, PE, COPD, DKA, ARF, appy, cholecystitis, CVA, Diverticulitis, Homicidal, Suicidal, threat to staff... and all critical care pts) @ -No - Lab Data Result diagrams: 12/09/22 07:54 12/09/22 07:54 Lab Results 12/09/22 12/09/22 12/09/22 Range/Units 07:54 07:54 07:54 WBC 5.4 (3.8-10.6) k/uL RBC 4.87 (4.30-5.90) m/uL Hgb 13.8 (13.0-17.5) gm/dL Hct 42.6 (39.0-53.0) % MCV 87.4 (80.0-100.0) fL MCH 28.4 (25.0-35.0) pg MCHC 32.5 (31.0-37.0) g/dL RDW 15.3 (11.5-15.5) % Plt Count 190 (150-450) k/uL MPV 7.9 Neutrophils % 63 % Lymphocytes % 23 % Monocytes % 7 % Eosinophils % 5 % Basophils % 0 % Neutrophils # 3.4 (1.3-7.7) k/uL Lymphocytes # 1.2 (1.0-4.8) k/uL Monocytes # 0.4 (0-1.0) k/uL Eosinophils # 0.3 (0-0.7) k/uL Basophils # 0.0 (0-0.2) k/uL PT 10.4 (9.0-12.0) sec INR 1.0 (<1.2) APTT 23.4 (22.0-30.0) sec Sodium 141 (137-145) mmol/L Potassium 3.4 L (3.5-5.1) mmol/L Chloride 109 H (98-107) mmol/L Carbon Dioxide 22 (22-30) mmol/L Anion Gap 10 mmol/L BUN 21 H (9-20) mg/dL Creatinine 2.36 H (0.66-1.25) mg/dL Est GFR (CKD-EPI)AfAm 39 (>60 ml/min/1.73 sqM) Est GFR (CKD-EPI)NonAf 34 (>60 ml/min/1.73 sqM) Glucose 142 H (74-99) mg/dL Plasma Lactic Acid Niko (0.7-2.0) mmol/L Calcium 9.0 (8.4-10.2) mg/dL Magnesium 2.2 (1.6-2.3) mg/dL Total Bilirubin 0.6 (0.2-1.3) mg/dL AST 43 (17-59) U/L ALT 35 (4-49) U/L Alkaline Phosphatase 116 (38-126) U/L Total Protein 6.9 (6.3-8.2) g/dL Albumin 3.9 (3.5-5.0) g/dL Urine Color Urine Appearance (Clear) Urine pH (5.0-8.0) Ur Specific [place] (1.001-1.035) Urine Protein (Negative) Urine Glucose (UA) (Negative) Urine Ketones (Negative) Urine Blood (Negative) Urine Nitrite (Negative) Urine Bilirubin (Negative) Urine Urobilinogen (<2.0) mg/dL Ur Leukocyte Esterase (Negative) Urine RBC (0-5) /hpf Urine WBC (0-5) /hpf Influenza Type A (PCR) (Not Detectd) Influenza Type B (PCR) (Not Detectd) RSV (PCR) (Not Detectd) SARS-CoV-2 (PCR) (Not Detectd) 12/09/22 12/09/22 12/09/22 Range/Units 07:54 07:54 07:54 WBC (3.8-10.6) k/uL RBC (4.30-5.90) m/uL Hgb (13.0-17.5) gm/dL Hct (39.0-53.0) % MCV (80.0-100.0) fL MCH (25.0-35.0) pg MCHC (31.0-37.0) g/dL RDW (11.5-15.5) % Plt Count (150-450) k/uL MPV Neutrophils % % Lymphocytes % % Monocytes % % Eosinophils % % Basophils % % Neutrophils # (1.3-7.7) k/uL Lymphocytes # (1.0-4.8) k/uL Monocytes # (0-1.0) k/uL Eosinophils # (0-0.7) k/uL Basophils # (0-0.2) k/uL PT (9.0-12.0) sec INR (<1.2) APTT (22.0-30.0) sec Sodium (137-145) mmol/L Potassium (3.5-5.1) mmol/L Chloride (98-107) mmol/L Carbon Dioxide (22-30) mmol/L Anion Gap mmol/L BUN (9-20) mg/dL Creatinine (0.66-1.25) mg/dL Est GFR (CKD-EPI)AfAm (>60 ml/min/1.73 sqM) Est GFR (CKD-EPI)NonAf (>60 ml/min/1.73 sqM) Glucose (74-99) mg/dL Plasma Lactic Acid Niko 1.6 (0.7-2.0) mmol/L Calcium (8.4-10.2) mg/dL Magnesium (1.6-2.3) mg/dL Total Bilirubin (0.2-1.3) mg/dL AST (17-59) U/L ALT (4-49) U/L Alkaline Phosphatase (38-126) U/L Total Protein (6.3-8.2) g/dL Albumin (3.5-5.0) g/dL Urine Color Yellow Urine Appearance Clear (Clear) Urine pH 6.0 (5.0-8.0) Ur Specific [place] 1.020 (1.001-1.035) Urine Protein 2+ H (Negative) Urine Glucose (UA) Negative (Negative) Urine Ketones Negative (Negative) Urine Blood Negative (Negative) Urine Nitrite Negative (Negative) Urine Bilirubin Negative (Negative) Urine Urobilinogen <2.0 (<2.0) mg/dL Ur Leukocyte Esterase Negative (Negative) Urine RBC <1 (0-5) /hpf Urine WBC 1 (0-5) /hpf Influenza Type A (PCR) Not Detected (Not Detectd) Influenza Type B (PCR) Not Detected (Not Detectd) RSV (PCR) Not Detected (Not Detectd) SARS-CoV-2 (PCR) Not Detected (Not Detectd) Disposition Clinical Impression: Weakness Disposition: HOME SELF-CARE Condition: Good Instructions (If sedation given, give patient instructions): Fever in Adults (ED) Is patient prescribed a controlled substance at d/c from ED?: No Referrals: Maksim Schultz MD [Primary Care Provider] - 1-2 days Time of Disposition: 11:25
[2022-12-09 08:09] LABS: Basophils % (A) 0 %; Eosinophils # (A) 0.3 k/uL (0-0.7); Eosinophils % (A) 5 %; HCT 42.6 % (39.0-53.0); HGB 13.8 gm/dL (13.0-17.5); Lymphocytes # (A) 1.2 k/uL (1.0-4.8); Lymphocytes % (A) 23 %; MCH 28.4 pg (25.0-35.0); MCHC 32.5 g/dL (31.0-37.0); MCV 87.4 fL (80.0-100.0); Mean Platelet Volume 7.9; Monocytes # (A) 0.4 k/uL (0-1.0); Monocytes % (A) 7 %; Neutrophils # (A) 3.4 k/uL (1.3-7.7); Neutrophils % (A) 63 %; Platelet Count 190 k/uL (150-450); RBC 4.87 m/uL (4.30-5.90); RDW 15.3 % (11.5-15.5); WBC 5.4 k/uL (3.8-10.6)
[2022-12-09 08:19] LABS: Partial Thromboplastin Time 23.4 sec (22.0-30.0); Prothrombin Time 10.4 sec (9.0-12.0)
[2022-12-09 08:25] LABS: ALT 35 U/L (4-49); AST 43 U/L (17-59); African American GFR (CKD) 39 (>60 ml/min/1.73 sqM); Albumin 3.9 g/dL (3.5-5.0); Alkaline Phosphatase 116 U/L (38-126); Anion Gap 10 mmol/L; Blood Urea Nitrogen 21 mg/dL (9-20); Carbon Dioxide 22 mmol/L (22-30); Chloride 109 mmol/L (98-107); Glucose 142 mg/dL (74-99); Magnesium 2.2 mg/dL (1.6-2.3); Non-African American GFR(CKD) 34 (>60 ml/min/1.73 sqM); Potassium 3.4 mmol/L (3.5-5.1); Sodium 141 mmol/L (137-145); Total Bilirubin 0.6 mg/dL (0.2-1.3); Total Protein 6.9 g/dL (6.3-8.2)
--- NOTE | 2022-12-09 08:26 | XR ---
EXAMINATION TYPE: XR chest 2V DATE OF EXAM: 12/09/2022 8:22 AM COMPARISON: Chest radiographs from 09/12/2019 TECHNIQUE: XR chest 2V Frontal and lateral views of the chest. CLINICAL INDICATION:Male, 37 years old with history of fever, cough; FINDINGS: Lungs/Pleura: There is no evidence of pleural effusion, focal consolidation, or pneumothorax. Pulmonary vascularity: Unremarkable. Heart/mediastinum: Cardiomediastinal silhouette is unremarkable. Musculoskeletal: No acute osseous pathology. Other findings: None Lines/Tubes: Right upper abdomen stent partially visualized IMPRESSION: No acute cardiopulmonary disease/process.
[2022-12-09 08:57] VITALS: RESP 18
[2022-12-09 10:19] LABS: Appearance,Urine Clear (Clear); Bilirubin,Urine Negative (Negative); Blood,Urine Negative (Negative); Color,Urine Yellow; Glucose,Urine (UA) Negative (Negative); Ketones,Urine Negative (Negative); Leukocyte Esterase,Urine Negative (Negative); Nitrite,Urine Negative (Negative); Protein,Urine 2+ (Negative); RBC,Urine <1 /hpf (0-5); Urobilinogen,Urine <2.0 mg/dL (<2.0); WBC,Urine 1 /hpf (0-5)
[2022-12-09 11:37] VITALS: BP 130/84; PULSE 78; TEMP 98.7
== END 2022-12-09 11:37 | disposition home or self-care (01) ==
LOC: EC 07:10
DX: R53.1 Weakness (principal); I12.0 Hypertensive chronic kidney disease with stage 5 chronic kidney disease or end stage renal disease; N18.6 End stage renal disease; Z87.891 Personal history of nicotine dependence; Z79.899 Other long term (current) drug therapy; Z20.822 Contact with and (suspected) exposure to COVID-19; Z99.2 Dependence on renal dialysis
CPT/HCPCS: 36415; 71046; 80053; 81001; 83605; 83735; 85025; 85610; 85730; 87040; 87636; 93005; 99284

== ENCOUNTER 2023-01-05 19:29 | Emergency (ER) | payer OTHER ==
[2023-01-05 19:34] VITALS: TEMP 97.7
[2023-01-05] MEDS ORDERED: ONDANSETRON 4 MG/2 ML VIAL IVP STA (19:43)
[2023-01-05] MEDS ORDERED: MORPHINE SULFATE 4 MG/ML SYRINGE IVP STA (19:48)
[2023-01-05 20:17] LABS: Basophils % (A) 0 %; Eosinophils # (A) 0.3 k/uL (0-0.7); Eosinophils % (A) 6 %; HCT 48.5 % (39.0-53.0); HGB 15.6 gm/dL (13.0-17.5); Lymphocytes % (A) 19 %; MCH 29.2 pg (25.0-35.0); MCHC 32.1 g/dL (31.0-37.0); Monocytes # (A) 0.4 k/uL (0-1.0); Monocytes % (A) 7 %; Neutrophils # (A) 3.5 k/uL (1.3-7.7); Neutrophils % (A) 66 %; Platelet Count 149 k/uL (150-450); RBC 5.33 m/uL (4.30-5.90); RDW 15.2 % (11.5-15.5); WBC 5.2 k/uL (3.8-10.6)
[2023-01-05 20:26] LABS: Partial Thromboplastin Time 23.9 sec (22.0-30.0); Prothrombin Time 10.3 sec (9.0-12.0)
[2023-01-05 20:37] LABS: ALT 32 U/L (4-49); AST 34 U/L (17-59); African American GFR (CKD) 47 (>60 ml/min/1.73 sqM); Albumin 3.8 g/dL (3.5-5.0); Alcohol <10 mg/dL; Alkaline Phosphatase 90 U/L (38-126); Amylase 99 U/L (30-110); Anion Gap 8 mmol/L; Blood Urea Nitrogen 32 mg/dL (9-20); Calcium 8.8 mg/dL (8.4-10.2); Carbon Dioxide 22 mmol/L (22-30); Chloride 108 mmol/L (98-107); Glucose 150 mg/dL (74-99); Lipase 198 U/L (23-300); Magnesium 2.1 mg/dL (1.6-2.3); Non-African American GFR(CKD) 40 (>60 ml/min/1.73 sqM); Potassium 4.3 mmol/L (3.5-5.1); Sodium 138 mmol/L (137-145); Total Bilirubin 0.5 mg/dL (0.2-1.3); Total Protein 6.8 g/dL (6.3-8.2)
--- NOTE | 2023-01-05 20:51 | ED ---
Chest Pain HPI - General Chief Complaint: Chest Pain Stated Complaint: Chest Pain,Sob,side pain Time Seen by Provider: 01/05/23 19:38 Source: patient, RN notes reviewed Mode of arrival: ambulatory Limitations: no limitations - History of Present Illness Initial Comments: This is a 37-year-old male who presents to the emergency department for chest pain and shortness of breath. States that the symptoms started at about 3 AM and have since persisted. Chest pain is described as a tightness and "constricting" sensation. States that he is also getting pain in the back and over the left side of his abdomen. Reports associated nausea and vomiting. States that he has stage 3B CKD. He used to be on dialysis, however that has since been discontinued since his kidney function has started to improve. He does have a biliary stent, and states that he has an appointment with Gen. surgery at [facility] next month to discuss removal of the gallbladder, which he states would be a fairly complicated case for him in light of his comorbidities and history of liver disease. Denies any fevers, chills, sore throat, cough, palpitations, diarrhea, or headaches. MD Complaint: chest pain - Related Data Home Medications Medication Instructions Recorded Confirmed QUEtiapine [SEROquel] 50 mg PO HS 09/08/19 01/05/23 Dextroamphetamine/Amphetamine 30 mg PO BID 07/16/22 01/05/23 [Adderall] Sodium Bicarbonate 650 mg PO BID 07/16/22 01/05/23 calcitrioL [Calcitriol] 0.25 mcg PO MOTH 07/16/22 01/05/23 Dapagliflozin Propanediol [Farxiga] 5 mg PO DAILY 08/14/22 01/05/23 Ergocalciferol [Vitamin D2 (1250 1,250 mcg PO QMONTHLY 08/14/22 01/05/23 Mcg = 07012 Iu)] Losartan Potassium 50 mg PO DAILY 08/14/22 01/05/23 Sildenafil Citrate 100 mg PO DAILY PRN 01/05/23 01/05/23 Allergies Allergy/AdvReac Type Severity Reaction Status Date / Time No Known Allergies Allergy Verified 01/05/23 21:27 Review of Systems ROS Statement: Those systems with pertinent positive or pertinent negative responses have been documented in the HPI. ROS Other: All systems not noted in ROS Statement are negative. 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 "I was in a coma for 3 months" History of Any Multi-Drug Resistant Organisms: None Reported Past Surgical History: No Surgical Hx Reported Additional Past Surgical History / Comment(s): tracheotomy, PEG tube placement, stent in gall bladder, L arm fistula Past Anesthesia/Blood Transfusion Reactions: No Reported Reaction Past Psychological History: ADD/ADHD Smoking Status: Former smoker Past Alcohol Use History: None Reported Past Drug Use History: None Reported - Past Family History Father Family Medical History: No Reported History Additional Family Medical History / Comment(s): Father is a heroin addict now on methadone. Mother Family Medical History: Hypertension General Exam Limitations: no limitations General appearance: alert, in no apparent distress Head exam: Present: atraumatic, normocephalic, normal inspection Respiratory exam: Present: normal lung sounds bilaterally. Absent: respiratory distress, wheezes, rales, rhonchi, stridor Cardiovascular Exam: Present: regular rate, normal rhythm, normal heart sounds. Absent: systolic murmur, diastolic murmur, rubs, gallop, clicks GI/Abdominal exam: Present: soft, tenderness (diffuse), normal bowel sounds. Absent: distended Neurological exam: Present: alert, oriented X3, CN II-XII intact Psychiatric exam: Present: normal affect, normal mood Skin exam: Present: warm, dry, intact, normal color. Absent: rash Course Vital Signs 01/05/23 01/05/23 01/05/23 19:32 20:25 21:40 Temperature 97.7 F Pulse Rate 108 H 98 92 Respiratory 20 18 17 Rate Blood Pressure 153/87 155/80 127/84 O2 Sat by Pulse 100 96 97 Oximetry 01/05/23 01/06/23 22:38 00:08 Temperature Pulse Rate 90 101 H Respiratory 17 17 Rate Blood Pressure 134/80 142/92 O2 Sat by Pulse 99 100 Oximetry Chest Pain MDM - MDM This is a 37-year-old male who presents to the emergency department for chest pain. Was pt. sent in by a medical professional or institution? @ -No Did you speak to anyone other than the patient for history? @ -No Did you review nursing and triage notes? @ -Yes, and I agree, it is accurate with regards to the patient's symptoms. Were old charts reviewed? @ -No Differential Diagnosis? @ -Differential Chest Pain: Stable Angina, Unstable Angina, STEMI, NSTEMI Aortic Dissection, Pneumothorax, Musculoskeletal, Esophageal Spasm GERD, Cholecystitis, Pancreatitis, Zoster, this is not meant to be an all-inclusive list. EKG interpreted by me (3pts min.)? @ -EKG interpreted by me demonstrating the following: Sinus tachycardia. Ventricular rate 100 beats per minute, TN interval 130 milliseconds, QRS duration 89 ms, QTC 382 ms. X-rays interpreted by me (1pt min.)? @ -Chest x-ray obtained, my interpretation identifies no localized consolidations or infiltrates. CT interpreted by me (1pt min.)? @ -Not obtained U/S interpreted by me (1pt. min.)? @ -Gallbladder ultrasound obtained. My interpretation identifies no evidence of CBD dilation. What testing was considered but not performed? (CT, X-rays, U/S, labs)? Why? @ -None What meds were considered but not given? Why? @ -None Did you discuss the management of the patient with other professionals? @ -No Did you reconcile home meds? @ -No Was smoking cessation discussed for >3mins.? @ -I discussed smoking cessation for greater than 3 minutes. The risk of smoking were discussed with the patient including but not limited to risks of cancer, stroke, coronary artery disease and COPD. Also discussed with patient were multiple methods of quitting smoking. Lastly we discussed the financial cost of smoking. Was critical care preformed (if so, how long)? @ -No Were there social determinants of health that impacted care today? How? (Homelessness, low income, unemployed, alcoholism, drug addiction, transportation, low edu. Level, literacy, decrease access to med. care, [facility]ci, rehab)? @ -No Was there de-escalation of care discussed even if they declined? (Discuss DNR or withdrawal of care, Hospice)? @ -No What co-morbidities impacted this encounter? (DM, HTN, Smoking, COPD, CAD, Cancer, CVA, Hep., AIDS, mental health diagnosis, sleep apnea, morbid obesity)? @ -Renal disease, HTN, liver disease, smoking Was patient admitted / discharged? @ -Discharged. Lab work obtained and found to be nonactionable, including a negative troponin and d-dimer. Renal function is consistent with known history of CKD, and actually improved when compared with lab work obtained one month ago. Chest x-ray reveals no acute process. We did obtain a gallbladder ultrasound due to his history of liver disease and because he required biliary stent placement in the past. He was also having some tenderness in the right upper quadrant. Gallbladder ultrasound revealed no acute process. He was initially given IV fluids, morphine, and Zofran, however his symptoms persisted. He was then given a dose of Dilaudid with more improvement and he was asking for a sandwich and water. He was given these as requested and tolerated them without difficulty. We did repeat his troponin, which was again negative. In light of the normal workup and with symptoms being well-controlled, patient was discharged home in stable condition and instructed to follow-up with his primary care provider. Undiagnosed new problem with uncertain prognosis? @ -None Drug Therapy requiring intensive monitoring for toxicity (Heparin, Nitro, Insulin, Cardizem)? @ -None Were any procedures done? @ -None Diagnosis/symptom? @ -Chest pain, nausea, abdominal pain Acute, or Chronic, or Acute on Chronic? @ -Acute Uncomplicated (without systemic symptoms) or Complicated (systemic symptoms)? @ -Uncomplicated Side effects of treatment? @ -None Exacerbation, Progression, or Severe Exacerbation] @ -Not applicable Poses a threat to life or bodily function? @ -No Return precautions reviewed in depth, the patient is instructed to return to the emergency department with any new, worsening, or concerning symptoms. Patient verbalized understanding. This case was discussed in detail with the attending ED physician, Dr. Gibbons. Presentation, findings, and treatment plan discussed in detail as well. Disposition Clinical Impression: Chest pain, Nausea, Nicotine dependence, Abdominal pain Disposition: HOME SELF-CARE Instructions (If sedation given, give patient instructions): Chest Pain (ED) Additional Instructions: Return to the emergency department with any new, worsening, or concerning symptoms. Take Tylenol as needed for pain relief. Follow up with your primary care provider in 1-2 days. Is patient prescribed a controlled substance at d/c from ED?: No Referrals: Maksim Schultz MD [Primary Care Provider] - 1-2 days
[2023-01-05] MEDS ORDERED: HYDROmorphone 0.5 MG/0.5 ML SYRINGE IVP STA ×3 (20:57→23:55)
--- NOTE | 2023-01-05 21:17 | XR ---
EXAMINATION TYPE: XR chest 2V DATE OF EXAM: 01/05/2023 8:33 PM COMPARISON: Chest radiographs from 12/09/2022 TECHNIQUE: XR chest 2V Frontal and lateral views of the chest. CLINICAL INDICATION:Male, 37 years old with history of Chest Pain; FINDINGS: Lungs/Pleura: There is no evidence of pleural effusion, focal consolidation, or pneumothorax. Pulmonary vascularity: Unremarkable. Heart/mediastinum: Cardiomediastinal silhouette is unremarkable. Musculoskeletal: No acute osseous pathology. IMPRESSION: No acute cardiopulmonary disease/process.
[2023-01-05 21:41] VITALS: RESP 17
--- NOTE | 2023-01-05 22:12 | US ---
EXAMINATION TYPE: US gallbladder DATE OF EXAM: 01/05/2023 COMPARISON: 11/10/2019, CT 03/18/2018. CLINICAL INDICATION: Male, 37 years old with history of Epigastric pain, hx of gallbladder problems; Patient states being in a coma in 2019 with GB infection which lead to a stent in GB. Pain. TECHNIQUE: Multiple sonographic images of the right upper quadrant are obtained. FINDINGS: EXAM MEASUREMENTS: Liver Length: 13.1 cm Gallbladder Wall: 0.2 cm CBD: 0.6 cm Right Kidney: 8.0 x 3.3 x 4.9 cm Pancreas: Obscured by bowel gas Liver: Scanned through ribs due to bowel gas, no prominent masses or lesions seen although limited hyperechoic liver parenchyma. Gallbladder: Stent visualized Evidence for sonographic Erazo's sign: neg CBD: wnl Right Kidney: No hydronephrosis or masses seen, appears small in size. Limited lower pole due to fritz wel gas. IMPRESSION: 1. Biliary stent visualized. No other acute intra-abdominal process visualized. Evaluation limited w ith ultrasound technique. Consider complete evaluation with CT imaging with IV and oral contrast. 2. Hepatic cirrhosis.
[2023-01-05 22:27] LABS: Appearance,Urine Clear (Clear); Bilirubin,Urine Negative (Negative); Blood,Urine Negative (Negative); Color,Urine Light Yellow; Glucose,Urine (UA) 3+ (Negative); Ketones,Urine Negative (Negative); Leukocyte Esterase,Urine Negative (Negative); Mucus,Urine Rare /hpf; Nitrite,Urine Negative (Negative); Protein,Urine 2+ (Negative); RBC,Urine <1 /hpf (0-5); Specific Gravity,Urine 1.017 (1.001-1.035); Urobilinogen,Urine <2.0 mg/dL (<2.0); WBC,Urine <1 /hpf (0-5)
[2023-01-05 22:38] LABS: Amphetamine Screen,Urine Not Detected (NotDetected); Barbiturate Screen,Urine Not Detected (NotDetected); Benzodiazepines Screen,Urine Not Detected (NotDetected); Cocaine Screen,Urine Not Detected (NotDetected); Methadone Screen, Urine Not Detected (NotDetected); Opiate Screen,Urine Detected (NotDetected); Oxycodone Screen, Urine Not Detected (NotDetected); Phencyclidine Screen,Urine Not Detected (NotDetected); Tricyclic Antidepressant,Urine Not Detected (NotDetected); Urn Cannabinoid Scrn Not Detected (NotDetected)
[2023-01-05] MEDS ORDERED: ONDANSETRON 4 MG ODT STARTER PACK 2 TAB BTL PO STA (23:32)
[2023-01-05] MEDS ORDERED: ACET/COD 300 MG/30 MG STARTER PACK 6 TAB BTL PO STA (23:32)
[2023-01-06 00:09] VITALS: BP 142/92; PULSE 101
== END 2023-01-06 00:39 | disposition home or self-care (01) ==
LOC: EC 19:29
DX: R11.0 Nausea (principal); R07.89 Other chest pain; F17.200 Nicotine dependence, unspecified, uncomplicated; R10.9 Unspecified abdominal pain; I10 Essential (primary) hypertension; Z79.899 Other long term (current) drug therapy
CPT/HCPCS: 36415; 93005; 85379; 80053; 82150; 83690; 83735; 84484; 85025; 85610; 85730; 81001; 80306; 71046; 76705; 99285; 96374; 96375 ×2; 96376 ×2; G0480; J2270; J2405; J1170; 80320

== ENCOUNTER 2023-01-11 20:33 | Emergency (ER) | payer OTHER ==
[2023-01-11] MEDS ORDERED: MORPHINE SULFATE 4 MG/ML SYRINGE IV STA (23:24)
--- NOTE | 2023-01-11 23:26 | ED ---
General Adult HPI - General Chief complaint: Chest Pain Stated complaint: back pain Time Seen by Provider: 01/11/23 23:09 Source: patient Mode of arrival: wheelchair Limitations: no limitations - History of Present Illness Initial comments: This patient is a 37-year-old man who presents evaluation for pain to the bilateral flank areas. He indicates bilaterally the areas to the trunk here the costal margin just above and below. He states that both sides are more or less the same. Is an aching pain worse with movement and with palpation. He has not noted relieving factors. No accompanying symptoms. -: days(s) Location: chest, back, abdomen Consistency: constant Improves with: none Worsens with: movement, other Associated Symptoms: denies other symptoms Treatments Prior to Arrival: none - Related Data Home Medications Medication Instructions Recorded Confirmed QUEtiapine [SEROquel] 50 mg PO HS 09/08/19 01/14/23 Dextroamphetamine/Amphetamine 30 mg PO BID 07/16/22 01/14/23 [Adderall] Sodium Bicarbonate 650 mg PO BID 07/16/22 01/14/23 calcitrioL [Calcitriol] 0.25 mcg PO MOTH 07/16/22 01/14/23 Dapagliflozin Propanediol [Farxiga] 5 mg PO DAILY 08/14/22 01/14/23 Ergocalciferol [Vitamin D2 (1250 1,250 mcg PO QMONTHLY 08/14/22 01/14/23 Mcg = 68730 Iu)] Losartan Potassium 50 mg PO DAILY 08/14/22 01/14/23 Sildenafil Citrate 100 mg PO DAILY PRN 01/05/23 01/14/23 Allergies Allergy/AdvReac Type Severity Reaction Status Date / Time No Known Allergies Allergy Verified 01/14/23 12:12 Review of Systems ROS Statement: Those systems with pertinent positive or pertinent negative responses have been documented in the HPI. ROS Other: All systems not noted in ROS Statement are negative. Constitutional: Denies: fever, chills, weakness Respiratory: Denies: cough, dyspnea Cardiovascular: Reports: chest pain. Denies: palpitations, orthopnea, edema, syncope Gastrointestinal: Reports: abdominal pain. 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 "I was in a coma for 3 months" History of Any Multi-Drug Resistant Organisms: None Reported Past Surgical History: No Surgical Hx Reported Additional Past Surgical History / Comment(s): tracheotomy, PEG tube placement, stent in gall bladder, L arm fistula Past Anesthesia/Blood Transfusion Reactions: No Reported Reaction Past Psychological History: ADD/ADHD Smoking Status: Former smoker Past Alcohol Use History: None Reported Past Drug Use History: None Reported - Past Family History Father Family Medical History: No Reported History Additional Family Medical History / Comment(s): Father is a heroin addict now on methadone. Mother Family Medical History: Hypertension General Exam Limitations: no limitations General appearance: alert, in no apparent distress Head exam: Present: atraumatic, normocephalic Eye exam: Present: normal appearance. Absent: scleral icterus, conjunctival injection Neck exam: Present: normal inspection Respiratory exam: Present: normal lung sounds bilaterally, chest wall tenderness. Absent: respiratory distress, wheezes, rales, rhonchi, stridor Cardiovascular Exam: Present: normal rhythm, tachycardia (Rate 104 at my exam), normal heart sounds. Absent: systolic murmur, diastolic murmur, rubs, gallop GI/Abdominal exam: Present: soft. Absent: distended, tenderness, guarding, rebound, rigid, mass Extremities exam: Present: normal inspection, normal capillary refill. Absent: pedal edema, calf tenderness Back exam: Present: normal inspection. Absent: CVA tenderness (R), CVA tender ness (L) Neurological exam: Present: alert Skin exam: Present: warm, dry, intact, normal color. Absent: rash Course Vital Signs 01/11/23 01/11/23 01/12/23 20:43 23:22 00:00 Temperature 98.1 F Pulse Rate 108 H 96 89 Respiratory 20 18 18 Rate Blood Pressure 143/86 158/99 145/95 O2 Sat by Pulse 98 97 97 Oximetry 01/12/23 01/12/23 01/12/23 02:00 03:00 04:00 Temperature Pulse Rate 82 78 82 Respiratory 20 18 18 Rate Blood Pressure 127/77 140/87 145/81 O2 Sat by Pulse 98 98 98 Oximetry 01/12/23 01/12/23 06:00 06:55 Temperature 98.2 F Pulse Rate 84 100 Respiratory 20 18 Rate Blood Pressure 134/78 134/85 O2 Sat by Pulse 97 97 Oximetry EKG Findings - EKG Results: EKG: interpreted by ERMD, sinus rhythm (With sinus arrhythmia, rate 99 bpm), normal axis, normal QRS, normal ST/T Medical Decision Making - Medical Decision Making The patient had abdomen and pelvis CT scan which I interpreted as being negative for acute bony trauma, bowel obstruction, free air. Was pt. sent in by a medical professional or institution (, PA, [facility], urgent care, hospital, or senior care...) When possible be specific @ -[No] Did you speak to anyone other than the patient for history (EMS, parent, family, police, friend...)? What history was obtained from this source @ -[No] Did you review nursing and triage notes (agree or disagree)? Why? @ -[I reviewed and agree with nursing and triage notes] Were old charts reviewed (outside hosp., previous admission, EMS record, old EKG, old radiological studies, urgent care reports/EKG's, senior care records)? Report findings @ -[No old charts were reviewed] Differential Diagnosis (chest pain, altered mental status, abdominal pain women, abdominal pain men, vaginal bleeding, weakness, fever, dyspnea, syncope, headache, dizziness, GI bleed, back pain, seizure, CVA, palpatations, mental health, musculoskeletal)? @ -[Differential Abdominal Pain Men: Appendicitis, cholecystitis, diverticulosis, ischemic bowel, pancreatitis, hepatitis, UTI, gastroenteritis, AAA, incarcerated hernia, bowel obstruction, constipation, inflammatory bowel, hepatitis, peptic ulcer disease, splenic infarction, perforated viscus, testicular torsion, this is not meant to be an all-inclusive list EKG interpreted by me (3pts min.). @ -[As above] X-rays interpreted by me (1pt min.). @ -[None done] CT interpreted by me (1pt min.). @ -[I interpreted as above U/S interpreted by me (1pt. min.). @ -[None done] What testing was considered but not performed or refused? (CT, X-rays, U/S, labs)? Why? @ -[None] What meds were considered but not given or refused? Why? @ -[None] Did you discuss the management of the patient with other professionals (prof hoang i.e. , PA, [facility], lab, RT, psych nurse, social media coordinator, video software engineer, teacher, articulation officer, case operator)? Give summary @ -[No] Was smoking cessation discussed for >3mins.? @ -[No] Was critical care preformed (if so, how long)? @ -[No] Were there social determinants of health that impacted care today? How? (Homelessness, low income, unemployed, alcoholism, drug addiction, trans portation, low edu. Level, literacy, decrease access to med. care, [facility] [facility], rehab)? @ -[No] Was there de-escalation of care discussed even if they declined (Discuss DNR or withdrawal of care, Hospice)? DNR status @ -[No] What co-morbidities impacted this encounter? (DM, HTN, Smoking, COPD, CAD, Cancer, CVA, ARF, Chemo, Hep., AIDS, mental health diagnosis, sleep apnea, morbid obesity)? @ -[None] Was patient admitted / discharged? Hospital course, mention meds given and route, prescriptions, significant lab abnormalities, going to OR and other pertinent info. @ -[Patient is 37-year-old man presenting with mid back pain, the workup revealing labs consistent with pancreatitis. The computed tomography scan does not reveal any complications related to this. Discussed appropriate further care and follow-up with the patient as well as pancreatitis diet, and return parameters. Patient feeling better and will attempt course of outpatient management returning if there is any problem. Undiagnosed new problem with uncertain prognosis? @ -[No] Drug Therapy requiring intensive monitoring for toxicity (Heparin, Nitro, Insulin, Cardizem)? @ -[No] Were any procedures done? @ -[No] Diagnosis/symptom? @ -Acute pancreatitis Acute, or Chronic, or Acute on Chronic? @ -[Acute Uncomplicated (without systemic symptoms) or Complicated (systemic symptoms)? @ -[default] Side effects of treatment? @ -[No] Exacerbation, Progression, or Severe Exacerbation? @ -[No] Poses a threat to life or bodily function? How? (Chest pain, USA, PA, pneumonia, PE, COPD, DKA, ARF, appy, cholecystitis, CVA, Diverticulitis, Homicidal, Suicidal, threat to staff... and all critical care pts) @ -[No] - Lab Data Result diagrams: 01/11/23 23:30 01/11/23 23:30 Lab Results 01/11/23 01/11/23 01/11/23 Range/Units 23:30 23:30 23:30 WBC 6.1 (3.8-10.6) k/uL RBC 5.44 (4.30-5.90) m/uL Hgb 15.8 (13.0-17.5) gm/dL Hct 50.4 (39.0-53.0) % MCV 92.5 (80.0-100.0) fL MCH 29.0 (25.0-35.0) pg MCHC 31.4 (31.0-37.0) g/dL RDW 15.2 (11.5-15.5) % Plt Count 168 (150-450) k/uL MPV 8.1 Neutrophils % 63 % Lymphocytes % 22 % Monocytes % 6 % Eosinophils % 6 % Basophils % 1 % Neutrophils # 3.9 (1.3-7.7) k/uL Lymphocytes # 1.3 (1.0-4.8) k/uL Monocytes # 0.4 (0-1.0) k/uL Eosinophils # 0.4 (0-0.7) k/uL Basophils # 0.0 (0-0.2) k/uL Hypochromasia Slight Sodium 140 (137-145) mmol/L Potassium 4.9 (3.5-5.1) mmol/L Chloride 111 H (98-107) mmol/L Carbon Dioxide 19 L (22-30) mmol/L Anion Gap 10 mmol/L BUN 35 H (9-20) mg/dL Creatinine 2.04 H (0.66-1.25) mg/dL Est GFR (CKD-EPI)AfAm 47 (>60 ml/min/1.73 sqM) Est GFR (CKD-EPI)NonAf 41 (>60 ml/min/1.73 sqM) Glucose 89 (74-99) mg/dL Calcium 9.3 (8.4-10.2) mg/dL Total Bilirubin 0.3 (0.2-1.3) mg/dL AST 67 H (17-59) U/L ALT 68 H (4-49) U/L Alkaline Phosphatase 156 H (38-126) U/L Troponin I <0.012 (0.000-0.034) ng/mL C-Reactive Protein <0.5 (<1.0) mg/dL Total Protein 7.4 (6.3-8.2) g/dL Albumin 4.2 (3.5-5.0) g/dL Amylase 205 H (30-110) U/L Lipase 1539 H (23-300) U/L Urine Color Urine Appearance (Clear) Urine pH (5.0-8.0) Ur Specific [place] (1.001-1.035) Urine Protein (Negative) Urine Glucose (UA) (Negative) Urine Ketones (Negative) Urine Blood (Negative) Urine Nitrite (Negative) Urine Bilirubin (Negative) Urine Urobilinogen (<2.0) mg/dL Ur Leukocyte Esterase (Negative) Urine RBC (0-5) /hpf Urine WBC (0-5) /hpf Urine Opiates Screen (NotDetected) Ur Oxycodone Screen (NotDetected) Urine Methadone Screen (NotDetected) Ur Propoxyphene Screen (NotDetected) Ur Barbiturates Screen (NotDetected) U Tricyclic Antidepress (NotDetected) Ur Phencyclidine Scrn (NotDetected) Ur Amphetamines Screen (NotDetected) U Methamphetamines Scrn (NotDetected) U Benzodiazepines Scrn (NotDetected) Urine Cocaine Screen (NotDetected) U Marijuana (THC) Screen (NotDetected) Serum Alcohol <10 mg/dL 01/12/23 01/12/23 Range/Units 01:04 01:04 WBC (3.8-10.6) k/uL RBC (4.30-5.90) m/uL Hgb (13.0-17.5) gm/dL Hct (39.0-53.0) % MCV (80.0-100.0) fL MCH (25.0-35.0) pg MCHC (31.0-37.0) g/dL RDW (11.5-15.5) % Plt Count (150-450) k/uL MPV Neutrophils % % Lymphocytes % % Monocytes % % Eosinophils % % Basophils % % Neutrophils # (1.3-7.7) k/uL Lymphocytes # (1.0-4.8) k/uL Monocytes # (0-1.0) k/uL Eosinophils # (0-0.7) k/uL Basophils # (0-0.2) k/uL Hypochromasia Sodium (137-145) mmol/L Potassium (3.5-5.1) mmol/L Chloride (98-107) mmol/L Carbon Dioxide (22-30) mmol/L Anion Gap mmol/L BUN (9-20) mg/dL Creatinine (0.66-1.25) mg/dL Est GFR (CKD-EPI)AfAm (>60 ml/min/1.73 sqM) Est GFR (CKD-EPI)NonAf (>60 ml/min/1.73 sqM) Glucose (74-99) mg/dL Calcium (8.4-10.2) mg/dL Total Bilirubin (0.2-1.3) mg/dL AST (17-59) U/L ALT (4-49) U/L Alkaline Phosphatase (38-126) U/L Troponin I (0.000-0.034) ng/mL C-Reactive Protein (<1.0) mg/dL Total Protein (6.3-8.2) g/dL Albumin (3.5-5.0) g/dL Amylase (30-110) U/L Lipase (23-300) U/L Urine Color Light Yellow Urine Appearance Clear (Clear) Urine pH 6.0 (5.0-8.0) Ur Specific [place] 1.018 (1.001-1.035) Urine Protein 2+ H (Negative) Urine Glucose (UA) Negative (Negative) Urine Ketones Negative (Negative) Urine Blood Negative (Negative) Urine Nitrite Negative (Negative) Urine Bilirubin Negative (Negative) Urine Urobilinogen <2.0 (<2.0) mg/dL Ur Leukocyte Esterase Negative (Negative) Urine RBC 1 (0-5) /hpf Urine WBC 1 (0-5) /hpf Urine Opiates Screen Detected H (NotDetected) Ur Oxycodone Screen Not Detected (NotDetected) Urine Methadone Screen Not Detected (NotDetected) Ur Propoxyphene Screen Not Detected (NotDetected) Ur Barbiturates Screen Not Detected (NotDetected) U Tricyclic Antidepress Not Detected (NotDetected) Ur Phencyclidine Scrn Not Detected (NotDetected) Ur Amphetamines Screen Detected H (NotDetected) U Methamphetamines Scrn Detected H (NotDetected) U Benzodiazepines Scrn Not Detected (NotDetected) Urine Cocaine Screen Not Detected (NotDetected) U Marijuana (THC) Screen Not Detected (NotDetected) Serum Alcohol mg/dL Disposition Clinical Impression: Pancreatitis Disposition: HOME SELF-CARE Condition: Fair Instructions (If sedation given, give patient instructions): Pancreatitis (ED) Is patient prescribed a controlled substance at d/c from ED?: No Referrals: Maksim Schultz MD [Primary Care Provider] - 1-2 days
[2023-01-11 23:51] LABS: Basophils % (A) 1 %; Eosinophils # (A) 0.4 k/uL (0-0.7); Eosinophils % (A) 6 %; HCT 50.4 % (39.0-53.0); HGB 15.8 gm/dL (13.0-17.5); Hypochromasia Slight; Lymphocytes # (A) 1.3 k/uL (1.0-4.8); Lymphocytes % (A) 22 %; MCHC 31.4 g/dL (31.0-37.0); MCV 92.5 fL (80.0-100.0); Mean Platelet Volume 8.1; Monocytes # (A) 0.4 k/uL (0-1.0); Monocytes % (A) 6 %; Neutrophils # (A) 3.9 k/uL (1.3-7.7); Neutrophils % (A) 63 %; Platelet Count 168 k/uL (150-450); RBC 5.44 m/uL (4.30-5.90); RDW 15.2 % (11.5-15.5); WBC 6.1 k/uL (3.8-10.6)
[2023-01-12 00:44] LABS: ALT 68 U/L (4-49); AST 67 U/L (17-59); African American GFR (CKD) 47 (>60 ml/min/1.73 sqM); Alcohol <10 mg/dL; Alkaline Phosphatase 156 U/L (38-126); Amylase 205 U/L (30-110); Blood Urea Nitrogen 35 mg/dL (9-20); C Reactive Protein <0.5 mg/dL (<1.0); Calcium 9.3 mg/dL (8.4-10.2); Carbon Dioxide 19 mmol/L (22-30); Glucose 89 mg/dL (74-99); Lipase 1539 U/L (23-300); Non-African American GFR(CKD) 41 (>60 ml/min/1.73 sqM); Potassium 4.9 mmol/L (3.5-5.1); Total Bilirubin 0.3 mg/dL (0.2-1.3); Total Protein 7.4 g/dL (6.3-8.2)
[2023-01-12 01:25] LABS: Albumin 4.2 g/dL (3.5-5.0); Anion Gap 10 mmol/L; Chloride 111 mmol/L (98-107); Sodium 140 mmol/L (137-145)
[2023-01-12 01:58] LABS: Appearance,Urine Clear (Clear); Bilirubin,Urine Negative (Negative); Blood,Urine Negative (Negative); Color,Urine Light Yellow; Glucose,Urine (UA) Negative (Negative); Ketones,Urine Negative (Negative); Leukocyte Esterase,Urine Negative (Negative); Nitrite,Urine Negative (Negative); Protein,Urine 2+ (Negative); RBC,Urine 1 /hpf (0-5); Specific Gravity,Urine 1.018 (1.001-1.035); Urobilinogen,Urine <2.0 mg/dL (<2.0); WBC,Urine 1 /hpf (0-5)
[2023-01-12 02:06] LABS: Amphetamine Screen,Urine Detected (NotDetected); Barbiturate Screen,Urine Not Detected (NotDetected); Benzodiazepines Screen,Urine Not Detected (NotDetected); Cocaine Screen,Urine Not Detected (NotDetected); Methadone Screen, Urine Not Detected (NotDetected); Opiate Screen,Urine Detected (NotDetected); Oxycodone Screen, Urine Not Detected (NotDetected); Phencyclidine Screen,Urine Not Detected (NotDetected); Tricyclic Antidepressant,Urine Not Detected (NotDetected); Urn Cannabinoid Scrn Not Detected (NotDetected)
--- NOTE | 2023-01-12 03:31 | CT ---
EXAM: CT Abdomen and Pelvis Without Intravenous Contrast CLINICAL HISTORY: ITS.REASON CT Reason: B flank pain TECHNIQUE: Axial computed tomography images of the abdomen and pelvis without intravenous contrast. CTDI is 10.2 mGy and DLP is 607.3 mGy-cm. This CT exam was performed using one or more of the following dose reduction techniques: automated exposure control, adjustment of the mA and/or kV according to patient size, and/or use of iterative reconstruction technique. COMPARISON: No relevant prior studies available. FINDINGS: Lung bases: Unremarkable. No mass. No consolidation. ABDOMEN: Liver: Surface nodularity of the liver, correlate for early hepatic cirrhosis. Gallbladder and bile ducts: Common bile duct stent terminates in the duodenum. No calcified stones. Pancreas: Unremarkable. No ductal dilation. Spleen: Splenomegaly measuring up to 15 cm. Adrenals: Unremarkable. No mass. Kidneys and ureters: Unremarkable. No obstructing stones. No hydronephrosis. Stomach and bowel: See above. PELVIS: Appendix: No findings to suggest acute appendicitis. Bladder: Unremarkable. No stones. Reproductive: Unremarkable as visualized. ABDOMEN and PELVIS: Intraperitoneal space: Unremarkable. No free air. No significant fluid collection. Bones/joints: No acute fracture. No dislocation. Soft tissues: Unremarkable. Vasculature: Unremarkable. No abdominal aortic aneurysm. Lymph nodes: Unremarkable. No enlarged lymph nodes. IMPRESSION: 1. Surface nodularity of the liver, correlate for early hepatic cirrhosis. 2. Common bile duct stent terminates in the duodenum. 3. Splenomegaly measuring up to 15 cm.
[2023-01-12] MEDS ORDERED: NALOXONE 0.4 MG/ML 1 ML VIAL IV PRN (04:11)
[2023-01-12] MEDS ORDERED: MORPHINE SULFATE 4 MG/ML SYRINGE IV PRN (04:18)
[2023-01-12] MEDS ORDERED: ONDANSETRON 4 MG/2 ML VIAL IVP PRN (04:18)
[2023-01-12] MEDS ORDERED: HYDROcodone/APAP 5-325MG 1 EACH TAB PO PRN (04:18)
[2023-01-12] MEDS ORDERED: MAG HYDROX/AL HYDROX/SIMETH 30 ML CUP PO PRN (04:18)
[2023-01-12] MEDS ORDERED: SODIUM CHLORIDE 0.9% 1,000 ML IV SCH (04:30)
[2023-01-12] MEDS ORDERED: QUEtiapine 50 MG TAB PO SCH (04:45)
[2023-01-12 06:57] VITALS: BP 134/85; PULSE 100; RESP 18; TEMP 98.2
[2023-01-12] MEDS ORDERED: LOSARTAN 50 MG TAB PO SCH (09:00)
[2023-01-12] MEDS ORDERED: PANTOPRAZOLE 40 MG/10 ML VIAL IV SCH (09:00)
== END 2023-01-12 06:55 | disposition home or self-care (01) ==
LOC: EC 20:33 → 5NMEDONC 01-12 04:11 → UNDOADMOB 01-12 04:11 → 6NMEDSUR 01-12 04:45 → 5NMEDONC 01-12 04:45 → 6NMEDSUR 01-12 06:24 → EC 01-12 06:55
DX: K85.90 Acute pancreatitis without necrosis or infection, unspecified (principal); I10 Essential (primary) hypertension; Z79.84 Long term (current) use of oral hypoglycemic drugs; Z87.891 Personal history of nicotine dependence; Z99.2 Dependence on renal dialysis
CPT/HCPCS: 36415; 93005; 80053; 82150; 83690; 84484; 85025; 86140; 81001; 80306; 74176; 99285; 96374; 96376; 96361 ×2; G0480; J2270 ×2; 80320

== ENCOUNTER 2023-01-13 18:14 | Emergency (ER) | payer OTHER ==
[~2023-01-13 18:14] MED LIST changes: -ACETAMINOPHEN TAB 500 MG TAB ONE; -ALPRAZolam 0.5 MG TAB PO PRN; -DESMOPRESSIN ACETATE 24 MCG in SODIUM CHLORIDE 0.9% 50 ML IV ONE; -HYDROmorphone 0.5 MG/0.5 ML SYRINGE IVP PRN; +MORPHINE SULFATE 4 MG/ML SYRINGE IVP STA
--- NOTE | 2023-01-13 19:14 | XR ---
EXAMINATION TYPE: XR chest 2V DATE OF EXAM: 01/13/2023 7:09 PM COMPARISON: Chest radiographs from 01/05/2023 TECHNIQUE: XR chest 2V Frontal and lateral views of the chest. CLINICAL INDICATION:Male, 37 years old with history of abdominal pain; FINDINGS: Lungs/Pleura: There is no evidence of pleural effusion, focal consolidation, or pneumothorax. Pulmonary vascularity: Unremarkable. Heart/mediastinum: Cardiomediastinal silhouette is unremarkable. Musculoskeletal: No acute osseous pathology. Other findings: Partial visualization of right upper quadrant biliary stent. IMPRESSION: No acute cardiopulmonary disease/process.
--- NOTE | 2023-01-13 19:15 | XR ---
EXAMINATION TYPE: XR KUB DATE OF EXAM: 01/13/2023 COMPARISON: CT abdomen pelvis 01/12/2023 HISTORY: Abdominal pain TECHNIQUE: Upright KUB image of the abdomen is obtained FINDINGS: Small bowel demonstrates no evidence for dilatation or air fluid levels. Gas and fecal material is seen in non-distended colon. No convincing evidence for pneumoperitoneum. Biliary stent demonstrated within the right upper quadrant corresponding to yesterday CT. Surgical cl ips in the left upper quadrant. No unusual calcifications. The lung bases are clear. The osseous structures are intact. IMPRESSION: Overall nonobstructive bowel gas pattern.
[2023-01-13 19:19] LABS: Basophils % (A) 0 %; Eosinophils # (A) 0.4 k/uL (0-0.7); Eosinophils % (A) 5 %; HCT 51.4 % (39.0-53.0); HGB 16.5 gm/dL (13.0-17.5); Lymphocytes % (A) 14 %; MCH 29.1 pg (25.0-35.0); MCHC 32.1 g/dL (31.0-37.0); MCV 90.5 fL (80.0-100.0); Mean Platelet Volume 7.8; Monocytes # (A) 0.4 k/uL (0-1.0); Monocytes % (A) 5 %; Neutrophils # (A) 5.7 k/uL (1.3-7.7); Neutrophils % (A) 75 %; Platelet Count 174 k/uL (150-450); RBC 5.68 m/uL (4.30-5.90); WBC 7.6 k/uL (3.8-10.6)
[2023-01-13 19:25] LABS: INR 1.1 (<1.2); Partial Thromboplastin Time 24.7 sec (22.0-30.0); Prothrombin Time 11.1 sec (9.0-12.0)
[2023-01-13 19:41] LABS: ALT 53 U/L (4-49); AST 42 U/L (17-59); African American GFR (CKD) 53 (>60 ml/min/1.73 sqM); Albumin 4.4 g/dL (3.5-5.0); Alkaline Phosphatase 107 U/L (38-126); Amylase 157 U/L (30-110); Anion Gap 12 mmol/L; Blood Urea Nitrogen 31 mg/dL (9-20); Calcium 9.8 mg/dL (8.4-10.2); Carbon Dioxide 16 mmol/L (22-30); Chloride 112 mmol/L (98-107); Glucose 121 mg/dL (74-99); Lipase 385 U/L (23-300); Non-African American GFR(CKD) 46 (>60 ml/min/1.73 sqM); Potassium 4.3 mmol/L (3.5-5.1); Sodium 140 mmol/L (137-145); Total Bilirubin 0.5 mg/dL (0.2-1.3); Total Protein 8.1 g/dL (6.3-8.2)
[2023-01-13] MEDS ORDERED: SODIUM CHLORIDE 0.9% 1,000 ML IV STA (22:20)
[2023-01-13] MEDS ORDERED: MORPHINE SULFATE 4 MG/ML SYRINGE IVP STA (22:27)
--- NOTE | 2023-01-13 22:56 | ED ---
General Adult HPI - General Chief complaint: Abdominal Pain Stated complaint: Revisit - Appendicitis Time Seen by Provider: 01/13/23 22:20 Source: patient, RN notes reviewed Mode of arrival: ambulatory Limitations: no limitations - History of Present Illness Initial comments: 37-year-old male with a past medical history significant for acute p ancreatitis presents to the emergency department with a chief complaint of epigastric pain. Patient reports that he was recently seen at this facility 2 days ago and was encouraged to be admitted for pancreatitis. He reports that he had a doctor's appointment yesterday that he could not miss. He was told to return back if his symptoms returned. He is complaining of sharp epigastric pain. He denies any nausea or vomiting. Denies any fevers or chills. Denies any recent alcohol use. He has not taken anything for his symptoms. - Related Data Home Medications Medication Instructions Recorded Confirmed QUEtiapine [SEROquel] 50 mg PO HS 09/08/19 01/05/23 Dextroamphetamine/Amphetamine 30 mg PO BID 07/16/22 01/05/23 [Adderall] Sodium Bicarbonate 650 mg PO BID 07/16/22 01/05/23 calcitrioL [Calcitriol] 0.25 mcg PO MOTH 07/16/22 01/05/23 Dapagliflozin Propanediol [Farxiga] 5 mg PO DAILY 08/14/22 01/05/23 Ergocalciferol [Vitamin D2 (1250 1,250 mcg PO QMONTHLY 08/14/22 01/05/23 Mcg = 98944 Iu)] Losartan Potassium 50 mg PO DAILY 08/14/22 01/05/23 Sildenafil Citrate 100 mg PO DAILY PRN 01/05/23 01/05/23 Allergies Allergy/AdvReac Type Severity Reaction Status Date / Time No Known Allergies Allergy Verified 01/11/23 20:45 Review of Systems ROS Statement: Those systems with pertinent positive or pertinent negative responses have been documented in the HPI. ROS Other: All systems not noted in ROS Statement are negative. 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 "I was in a coma for 3 months" History of Any Multi-Drug Resistant Organisms: None Reported Past Surgical History: No Surgical Hx Reported Additional Past Surgical History / Comment(s): tracheotomy, PEG tube placement, stent in gall bladder, L arm fistula Past Anesthesia/Blood Transfusion Reactions: No Reported Reaction Past Psychological History: ADD/ADHD Smoking Status: Former smoker Past Alcohol Use History: None Reported Past Drug Use History: None Reported - Past Family History Father Family Medical History: No Reported History Additional Family Medical History / Comment(s): Father is a heroin addict now on methadone. Mother Family Medical History: Hypertension General Exam - General Exam Comments Initial Comments: General: Alert, in no acute distress Head: atraumatic normocephalic. Eyes PERRL, EOMI intact, mucous membranes moist Respiratory: Lungs clear to auscultation bilaterally Cardiovascular: Heart rate regular rate and rhythm Abdominal: Soft without guarding or rebound, epigastric tenderness Extremities: Normal inspection with full range of motion and normal capillary refill Neuroogic: alert and oriented 3, CN II-XII intact, able to ambulate with steady gait Skin: warm dry and intact with normal color Limitations: no limitations Course Vital Signs 01/13/23 18:39 Temperature 98.9 F Pulse Rate 118 H Respiratory 20 Rate Blood Pressure 144/85 O2 Sat by Pulse 98 Oximetry Medical Decision Making - Medical Decision Making Was pt. sent in by a medical professional or institution (MARIA TERESA Mcfarland, [employer] L[employer]OUT DRAFTER, urgent care, hospital, or prison...) When possible be specific @ -[No] Did you speak to anyone other than the patient for history (EMS, parent, family, police, friend...)? What history was obtained from this source @ -[No] Did you review nursing and triage notes (agree or disagree)? Why? @ -[I reviewed and agree with nursing and triage notes] Were old charts reviewed (outside hosp., previous admission, EMS record, old EKG, old radiological studies, urgent care reports/EKG's, prison records)? Report findings @ -[No old charts were reviewed] Differential Diagnosis (chest pain, altered mental status, abdominal pain women, abdominal pain men, vaginal bleeding, weakness, fever, dyspnea, syncope, headache, dizziness, GI bleed, back pain, seizure, CVA, palpatations, mental health, musculoskeletal)? @ -[not applicable] EKG interpreted by me (3pts min.). @ -[As above] X-rays interpreted by me (1pt min.). @ [facility] x-ray reveals nonspecific bowel pattern. No evidence of obstruction CT interpreted by me (1pt min.). @ -[None done] U/S interpreted by me (1pt. min.). @ -[None done] What testing was considered but not performed or refused? (CT, X-rays, U/S, labs)? Why? @ -[None] What meds were considered but not given or refused? Why? @ -[None] Did you discuss the management of the patient with other professionals (professionals i.e. , PA, SILK SCREEN LAYOUT DRAFTER, lab, RT, psych nurse, manager social responsibility, microsoft exchange architect, teacher, ordnance officer, advertising manager)? Give summary @ -[No] Was smoking cessation discussed for >3mins.? @ -[No] Was critical care preformed (if so, how long)? @ -[No] Were there social determinants of health that impacted care today? How? (Homelessness, low income, unemployed, alcoholism, drug addiction, transportation, low edu. Level, literacy, decrease access to med. care, long-term, rehab)? @ -[No] Was there de-escalation of care discussed even if they declined (Discuss DNR or withdrawal of care, Hospice)? DNR status @ -[No] What co-morbidities impacted this encounter? (DM, HTN, Smoking, COPD, CAD, Cancer, CVA, ARF, Chemo, Hep., AIDS, mental health diagnosis, sleep apnea, morbid obesity)? @ -[None] Was patient admitted / discharged? Hospital course, mention meds given and route, prescriptions, significant lab abnormalities, going to OR and other pertinent info. @ -Discharge. This is a 37-year-old male who presents to the e mergency department with epigastric pain. Patient had a thorough history and physical exam performed on the emergency department. Physical exam reveals mild epigastric tenderness. Patient had laboratory and imaging which revealed WBC 7.6, hemoglobin for 16.5 coagulation studies unremarkable BUN 31, creatinine 1.85 this is improved since 01/11/2023. Patient's lipase is 385. Given 1 L of IV fluids and morphine with symptomatic relief. Patient was discharged home in stable condition with return precautions discussed. I discussed the results in detail with the verbalized understanding all questions were addressed. He is agreeable with the plan for discharge home. Case discussed with Dr. Robertson [facility] who agrees with plan of care Undiagnosed new problem with uncertain prognosis? @ -[No] Drug Therapy requiring intensive monitoring for toxicity (Heparin, Nitro, Insulin, Cardizem)? @ -[No] Were any procedures done? @ -[No] Diagnosis/symptom? @ -Epigastric Pain - Hx of Pancreatitis Acute, or Chronic, or Acute on Chronic? @ -Acute Uncomplicated (without systemic symptoms) or Complicated (systemic symptoms)? @ -Uncomplicated Side effects of treatment? @ -[No] Exacerbation, Progression, or Severe Exacerbation? @ -[No] Poses a threat to life or bodily function? How? (Chest pain, USA, [place], pneumonia, PE, COPD, DKA, ARF, appy, cholecystitis, CVA, Diverticulitis, Homicidal, Suicidal, threat to staff... and all critical care pts) @ -Low likelihood - Lab Data Result diagrams: 01/13/23 19:01 01/13/23 19:01 Lab Results 01/13/23 01/13/23 01/13/23 Range/Units 19:01 19:01 19:01 WBC 7.6 (3.8-10.6) k/uL RBC 5.68 (4.30-5.90) m/uL Hgb 16.5 (13.0-17.5) gm/dL Hct 51.4 (39.0-53.0) % MCV 90.5 (80.0-100.0) fL MCH 29.1 (25.0-35.0) pg MCHC 32.1 (31.0-37.0) g/dL RDW 15.0 (11.5-15.5) % Plt Count 174 (150-450) k/uL MPV 7.8 Neutrophils % 75 % Lymphocytes % 14 % Monocytes % 5 % Eosinophils % 5 % Basophils % 0 % Neutrophils # 5.7 (1.3-7.7) k/uL Lymphocytes # 1.0 (1.0-4.8) k/uL Monocytes # 0.4 (0-1.0) k/uL Eosinophils # 0.4 (0-0.7) k/uL Basophils # 0.0 (0-0.2) k/uL PT 11.1 (9.0-12.0) sec INR 1.1 (<1.2) APTT 24.7 (22.0-30.0) sec Sodium 140 (137-145) mmol/L Potassium 4.3 (3.5-5.1) mmol/L Chloride 112 H (98-107) mmol/L Carbon Dioxide 16 L (22-30) mmol/L Anion Gap 12 mmol/L BUN 31 H (9-20) mg/dL Creatinine 1.85 H (0.66-1.25) mg/dL Est GFR (CKD-EPI)AfAm 53 (>60 ml/min/1.73 sqM) Est GFR (CKD-EPI)NonAf 46 (>60 ml/min/1.73 sqM) Glucose 121 H (74-99) mg/dL Calcium 9.8 (8.4-10.2) mg/dL Total Bilirubin 0.5 (0.2-1.3) mg/dL AST 42 (17-59) U/L ALT 53 H (4-49) U/L Alkaline Phosphatase 107 (38-126) U/L Troponin I (0.000-0.034) ng/mL Total Protein 8.1 (6.3-8.2) g/dL Albumin 4.4 (3.5-5.0) g/dL Amylase 157 H (30-110) U/L Lipase 385 H (23-300) U/L 01/13/23 Range/Units 19:01 WBC (3.8-10.6) k/uL RBC (4.30-5.90) m/uL Hgb (13.0-17.5) gm/dL Hct (39.0-53.0) % MCV (80.0-100.0) fL MCH (25.0-35.0) pg MCHC (31.0-37.0) g/dL RDW (11.5-15.5) % Plt Count (150-450) k/uL MPV Neutrophils % % Lymphocytes % % Monocytes % % Eosinophils % % Basophils % % Neutrophils # (1.3-7.7) k/uL Lymphocytes # (1.0-4.8) k/uL Monocytes # (0-1.0) k/uL Eosinophils # (0-0.7) k/uL Basophils # (0-0.2) k/uL PT (9.0-12.0) sec INR (<1.2) APTT (22.0-30.0) sec Sodium (137-145) mmol/L Potassium (3.5-5.1) mmol/L Chloride (98-107) mmol/L Carbon Dioxide (22-30) mmol/L Anion Gap mmol/L BUN (9-20) mg/dL Creatinine (0.66-1.25) mg/dL Est GFR (CKD-EPI)AfAm (>60 ml/min/1.73 sqM) Est GFR (CKD-EPI)NonAf (>60 ml/min/1.73 sqM) Glucose (74-99) mg/dL Calcium (8.4-10.2) mg/dL Total Bilirubin (0.2-1.3) mg/dL AST (17-59) U/L ALT (4-49) U/L Alkaline Phosphatase (38-126) U/L Troponin I <0.012 (0.000-0.034) ng/mL Total Protein (6.3-8.2) g/dL Albumin (3.5-5.0) g/dL Amylase (30-110) U/L Lipase (23-300) U/L Disposition Clinical Impression: Epigastric pain, History of pancreatitis Disposition: HOME SELF-CARE Condition: Stable Additional Instructions: Please increase fluid intake over the next few days Please return to the nearest emergency department if symptoms worsen or persist Is patient prescribed a controlled substance at d/c from ED?: No Referrals: Maksim Schultz MD [Primary Care Provider] - 1-2 days Time of Disposition: 23:00
[2023-01-14 00:24] VITALS: BP 136/80; PULSE 99; RESP 18; TEMP 98.8
== END 2023-01-14 00:21 | disposition home or self-care (01) ==
LOC: EC 18:14
DX: R10.13 Epigastric pain (principal); Z87.19 Personal history of other diseases of the digestive system; I12.0 Hypertensive chronic kidney disease with stage 5 chronic kidney disease or end stage renal disease; N18.6 End stage renal disease; Z99.2 Dependence on renal dialysis; Z87.891 Personal history of nicotine dependence; Z79.899 Other long term (current) drug therapy
CPT/HCPCS: 36415; 93005; 80053; 82150; 83690; 84484; 85025; 85610; 85730; 71046; 74018; 99284; 96374; 96361; 96376; J2270

== ENCOUNTER 2023-01-14 10:48 | Observation (INO) | payer OTHER ==
[2023-01-14] MEDS ORDERED: PANTOPRAZOLE 40 MG/10 ML VIAL IVP STA (11:38)
[2023-01-14] MEDS ORDERED: ONDANSETRON 4 MG/2 ML VIAL IVP STA (11:38)
[2023-01-14] MEDS ORDERED: SODIUM CHLORIDE 0.9% 1,000 ML IV STA (11:38)
[2023-01-14] MEDS ORDERED: MORPHINE SULFATE 4 MG/ML SYRINGE IVP STA (11:39)
--- NOTE | 2023-01-14 11:41 | ED ---
General Adult HPI - General Chief complaint: Abdominal Pain Stated complaint: pancreatitis-sent by PCP Time Seen by Provider: 01/14/23 11:32 Source: patient, RN notes reviewed, old records reviewed Mode of arrival: ambulatory Limitations: no limitations - History of Present Illness Initial comments: 37-year-old male presents for evaluation of epigastric abdominal pain. History of pancreatitis, remote history of alcoholism, states he has not had a drink in the last 4 years. He was seen by his primary care provider and sent to the emergency department for admission to the hospital for symptomatically treatment of pancreatitis. - Related Data Home Medications Medication Instructions Recorded Confirmed QUEtiapine [SEROquel] 50 mg PO HS 09/08/19 01/14/23 Dextroamphetamine/Amphetamine 30 mg PO BID 07/16/22 01/14/23 [Adderall] Sodium Bicarbonate 650 mg PO BID 07/16/22 01/14/23 calcitrioL [Calcitriol] 0.25 mcg PO MOTH 07/16/22 01/14/23 Dapagliflozin Propanediol [Farxiga] 5 mg PO DAILY 08/14/22 01/14/23 Ergocalciferol [Vitamin D2 (1250 1,250 mcg PO QMONTHLY 08/14/22 01/14/23 Mcg = 57560 Iu)] Losartan Potassium 50 mg PO DAILY 08/14/22 01/14/23 Sildenafil Citrate 100 mg PO DAILY PRN 01/05/23 01/14/23 Allergies Allergy/AdvReac Type Severity Reaction Status Date / Time No Known Allergies Allergy Verified 01/14/23 12:12 Review of Systems ROS Statement: Those systems with pertinent positive or pertinent negative responses have been documented in the HPI. ROS Other: All systems not noted in ROS Statement are negative. 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 "I was in a coma for 3 months" History of Any Multi-Drug Resistant Organisms: None Reported Past Surgical History: No Surgical Hx Reported Additional Past Surgical History / Comment(s): tracheotomy, PEG tube placement, stent in gall bladder, L arm fistula Past Anesthesia/Blood Transfusion Reactions: No Reported Reaction Past Psychological History: ADD/ADHD Smoking Status: Vaper Past Alcohol Use History: None Reported Past Drug Use History: None Reported - Past Family History Father Family Medical History: No Reported History Additional Family Medical History / Comment(s): Father is a heroin addict now on methadone. Mother Family Medical History: Hypertension General Exam Limitations: no limitations General appearance: alert, in no apparent distress Head exam: Present: atraumatic, normocephalic Eye exam: Present: normal appearance, PERRL ENT exam: Present: normal exam Neck exam: Present: normal inspection. Absent: tenderness, meningismus Respiratory exam: Present: normal lung sounds bilaterally. Absent: respiratory distress, wheezes Cardiovascular Exam: Present: regular rate, normal rhythm GI/Abdominal exam: Present: soft, tenderness (Epigastric). Absent: distended Extremities exam: Present: normal inspection, normal capillary refill Neurological exam: Present: alert, oriented X3, CN II-XII intact. Absent: motor sensory deficit Psychiatric exam: Present: normal affect, normal mood Skin exam: Present: warm, dry, intact. Absent: cyanosis, diaphoretic Course Vital Signs 01/14/23 10:55 Temperature 98 F Pulse Rate 86 Respiratory 20 Rate Blood Pressure 149/100 O2 Sat by Pulse 99 Oximetry Medical Decision Making - Medical Decision Making Was pt. sent in by a medical professional or institution (MARIA TERESA Mcfarland, BACON SLICER, urgent care, hospital, or fci...) When possible be specific @Sent in by primary care provider Did you speak to anyone other than the patient for history (EMS, parent, family, police, friend...)? What history was obtained from this source @ -No Did you review nursing and triage notes (agree or disagree)? Why? @ -I reviewed and agree with nursing and triage notes Were old charts reviewed (outside hosp., previous admission, EMS record, old EKG, old radiological studies, urgent care reports/EKG's, fci records)? Report findings @ -No old charts were reviewed Differential Diagnosis (chest pain, altered mental status, abdominal pain women, abdominal pain men, vaginal bleeding, weakness, fever, dyspnea, syncope, headache, dizziness, GI bleed, back pain, seizure, CVA, palpatations, mental health, musculoskeletal)? @ -Differential Abdominal Pain Men: Appendicitis, cholecystitis, diverticulosis, ischemic bowel, pancreatitis, hepatitis, UTI, gastroenteritis, AAA, incarcerated hernia, bowel obstruction, constipation, inflammatory bowel, hepatitis, peptic ulcer disease, splenic infarction, perforated viscus, testicular torsion, this is not meant to be an all-inclusive list EKG interpreted by me (3pts min.). @ -As above X-rays interpreted by me (1pt min.). @ -None done CT interpreted by me (1pt min.). @ -None done U/S interpreted by me (1pt. min.). @ -None done What testing was considered but not performed or refused? (CT, X-rays, U/S, labs)? Why? @ -None What meds were considered but not given or refused? Why? @ -None Did you discuss the management of the patient with other professionals (prof hoang i.e. , PA, BACON SLICER, lab, RT, psych nurse, social service technician, licensed physical therapy assistant, teacher, chief strategy officer, top case assembler)? Give summary @ -No Was smoking cessation discussed for >3mins.? @ -No Was critical care preformed (if so, how long)? @ -No Were there social determinants of health that impacted care today? How? (Homelessness, low income, unemployed, alcoholism, drug addiction, transportat ion, low edu. Level, literacy, decrease access to med. care, fdc, rehab)? @ -No Was there de-escalation of care discussed even if they declined (Discuss DNR or withdrawal of care, Hospice)? DNR status @ -No What co-morbidities impacted this encounter? (DM, HTN, Smoking, COPD, CAD, Cancer, CVA, ARF, Chemo, Hep., AIDS, mental health diagnosis, sleep apnea, morbid obesity)? @ -Chronic pancreatitis Was patient admitted / discharged? Hospital course, mention meds given and route, prescriptions, significant lab abnormalities, going to OR and other pertinent info. @37-year-old male with recurrent abdominal pain, sent in by primary care for admission. Patient has epigastric abdominal pain with associated nausea vomiting. Consistent with acute on chronic pancreatitis. Lipase is mildly elevated. Patient will be admitted for symptomatic treatment Undiagnosed new problem with uncertain prognosis? @ -No Drug Therapy requiring intensive monitoring for toxicity (Heparin, Nitro, Insulin, Cardizem)? @ -No Were any procedures done? @ -No Diagnosis/symptom? @Acute on chronic pancreatitis Acute, or Chronic, or Acute on Chronic? @ -Acute on chronic Uncomplicated (without systemic symptoms) or Complicated (systemic symptoms)? @ -default Side effects of treatment? @ -No Exacerbation, Progression, or Severe Exacerbation? @ -No Poses a threat to life or bodily function? How? (Chest pain, USA, [place], pneumonia, PE, COPD, DKA, ARF, appy, cholecystitis, CVA, Diverticulitis, Homicidal, Suicidal, threat to staff... and all critical care pts) @ -[Low risk at this time - Lab Data Result diagrams: 01/14/23 11:45 01/14/23 11:45 Lab Results 01/14/23 01/14/23 Range/Units 11:45 11:45 WBC 5.6 (3.8-10.6) k/uL RBC 5.43 (4.30-5.90) m/uL Hgb 15.8 (13.0-17.5) gm/dL Hct 49.9 (39.0-53.0) % MCV 91.9 (80.0-100.0) fL MCH 29.1 (25.0-35.0) pg MCHC 31.7 (31.0-37.0) g/dL RDW 15.1 (11.5-15.5) % Plt Count 170 (150-450) k/uL MPV 7.6 Neutrophils % 67 % Lymphocytes % 21 % Monocytes % 5 % Eosinophils % 5 % Basophils % 1 % Neutrophils # 3.8 (1.3-7.7) k/uL Lymphocytes # 1.2 (1.0-4.8) k/uL Monocytes # 0.3 (0-1.0) k/uL Eosinophils # 0.3 (0-0.7) k/uL Basophils # 0.0 (0-0.2) k/uL Hypochromasia Slight Sodium 141 (137-145) mmol/L Potassium 4.4 (3.5-5.1) mmol/L Chloride 113 H (98-107) mmol/L Carbon Dioxide 16 L (22-30) mmol/L Anion Gap 12 mmol/L BUN 25 H (9-20) mg/dL Creatinine 1.92 H (0.66-1.25) mg/dL Est GFR (CKD-EPI)AfAm 50 (>60 ml/min/1.73 sqM) Est GFR (CKD-EPI)NonAf 44 (>60 ml/min/1.73 sqM) Glucose 106 H (74-99) mg/dL Calcium 8.8 (8.4-10.2) mg/dL Total Bilirubin 0.3 (0.2-1.3) mg/dL AST 38 (17-59) U/L ALT 45 (4-49) U/L Alkaline Phosphatase 129 H (38-126) U/L Total Protein 6.9 (6.3-8.2) g/dL Albumin 3.9 (3.5-5.0) g/dL Amylase 133 H (30-110) U/L Lipase 367 H (23-300) U/L Disposition Clinical Impression: Pancreatitis Disposition: ADMITTED IP TO THIS HOSP Condition: Stable Is patient prescribed a controlled substance at d/c from ED?: No Referrals: Maksim Schultz MD [Primary Care Provider] - 1-2 days Time of Disposition: 12:32
[2023-01-14 11:56] LABS: Basophils % (A) 1 %; Eosinophils # (A) 0.3 k/uL (0-0.7); Eosinophils % (A) 5 %; HCT 49.9 % (39.0-53.0); HGB 15.8 gm/dL (13.0-17.5); Hypochromasia Slight; Lymphocytes # (A) 1.2 k/uL (1.0-4.8); Lymphocytes % (A) 21 %; MCH 29.1 pg (25.0-35.0); MCHC 31.7 g/dL (31.0-37.0); MCV 91.9 fL (80.0-100.0); Mean Platelet Volume 7.6; Monocytes # (A) 0.3 k/uL (0-1.0); Monocytes % (A) 5 %; Neutrophils # (A) 3.8 k/uL (1.3-7.7); Neutrophils % (A) 67 %; Platelet Count 170 k/uL (150-450); RBC 5.43 m/uL (4.30-5.90); RDW 15.1 % (11.5-15.5); WBC 5.6 k/uL (3.8-10.6)
[2023-01-14 12:23] LABS: ALT 45 U/L (4-49); AST 38 U/L (17-59); African American GFR (CKD) 50 (>60 ml/min/1.73 sqM); Albumin 3.9 g/dL (3.5-5.0); Alkaline Phosphatase 129 U/L (38-126); Amylase 133 U/L (30-110); Anion Gap 12 mmol/L; Blood Urea Nitrogen 25 mg/dL (9-20); Calcium 8.8 mg/dL (8.4-10.2); Carbon Dioxide 16 mmol/L (22-30); Chloride 113 mmol/L (98-107); Glucose 106 mg/dL (74-99); Lipase 367 U/L (23-300); Non-African American GFR(CKD) 44 (>60 ml/min/1.73 sqM); Potassium 4.4 mmol/L (3.5-5.1); Sodium 141 mmol/L (137-145); Total Bilirubin 0.3 mg/dL (0.2-1.3); Total Protein 6.9 g/dL (6.3-8.2)
[2023-01-14] MEDS ORDERED: NALOXONE 0.4 MG/ML 1 ML VIAL IV PRN (12:30)
[2023-01-14] MEDS ORDERED: MORPHINE SULFATE 4 MG/ML SYRINGE IV PRN (12:30)
[2023-01-14] MEDS: SODIUM CHLORIDE 0.9% 1,000 ML IV SCH (13:20)
[2023-01-14] MEDS: HYDROmorphone 1 MG/ML 1 ML SYRINGE IVP PRN ×2 (15:19→20:38)
[2023-01-14] MEDS: SODIUM BICARBONATE TAB 650 MG TAB PO SCH (20:39)
[2023-01-14] MEDS: QUEtiapine 50 MG TAB PO SCH (20:40)
[2023-01-15] MEDS: HYDROmorphone 1 MG/ML 1 ML SYRINGE IVP PRN ×4 (01:40→21:23)
[2023-01-15] MEDS: SODIUM CHLORIDE 0.9% 1,000 ML IV SCH ×2 (02:14→18:01)
[2023-01-15] MEDS: LOSARTAN 50 MG TAB PO SCH (08:45)
[2023-01-15] MEDS: PANTOPRAZOLE 40 MG/10 ML VIAL IVP SCH (10:24)
--- NOTE | 2023-01-15 11:08 | CA ---
Transthoracic Echo Report Name: Dex Sánchez Age: 37 Gender: M : 1985 Exam Date: 01/15/2023 10:31 Exam Location: [facility] Ht (in): 66 Wt (lb): 176 Ordering Physician: Maksim Schultz MD Attending/Referring Phys: Rotary Surface Grinder Shu Rodriguez [facility] Procedure CPT: Indications: HTN Cardiac Hx: Technical Quality: Fair Contrast 1: Total Dose (mL): Contrast 2: Total Dose (mL): MEASUREMENTS (Male / Female) Normal Values 2D ECHO LV Diastolic Diameter PLAX 4.4 cm 4.2 - 5.9 / 3.9 - 5.3 cm LV Systolic Diameter PLAX 3.1 cm IVS Diastolic Thickness 1.0 cm 0.6 - 1.0 / 0.6 - 0.9 cm LVPW Diastolic Thickness 1.0 cm 0.6 - 1.0 / 0.6 - 0.9 cm LV Relative Wall Thickness 0.4 Ascending Aorta Diameter 2.8 cm M-MODE Aortic Root Diameter MM 2.9 cm LA Systolic Diameter MM 3.7 cm LA Ao Ratio MM 1.3 AV Cusp Separation MM 2.2 cm DOPPLER AV Peak Velocity 129.3 cm/s AV Peak Gradient 6.7 mmHg AV Mean Velocity 100.2 cm/s AV Mean Gradient 4.3 mmHg AV Velocity Time Integral 20.1 cm LVOT Peak Velocity 117.1 cm/s LVOT Peak Gradient 5.5 mmHg LVOT Velocity Time Integral 17.3 cm Mitral E Point Velocity 58.3 cm/s Mitral A Point Velocity 76.8 cm/s Mitral E to A Ratio 0.8 MV Deceleration Time 113.7 ms LV E' Lateral Velocity 13.3 cm/s Mitral E to LV E' Lateral Ratio 4.4 LV E' Septal Velocity 10.9 cm/s Mitral E to LV E' Septal Ratio 5.4 Right Atrial Pressure 3.0 mmHg FINDINGS Left Ventricle Left ventricular cavity size normal. Normal left ventricular systolic function with no obvious regional wall motion abnormalities. Borderline left ventricular hypertrophy. Left ventricular ejection fraction is estimated at 55-60%. Right Ventricle Normal right ventricular size and function. Unable to estimate the right ventricular systolic pressure. Right Atrium Normal right atrial size. Left Atrium Normal left atrial size. Mitral Valve Structurally normal mitral valve. No mitral regurgitation. Aortic Valve Trileaflet aortic valve. No aortic valve stenosis or regurgitation. Tricuspid Valve Structurally normal tricuspid valve. No tricuspid regurgitation. Pulmonic Valve Structurally normal pulmonic valve. Trace pulmonic regurgitation. Pericardium No pericardial effusion. Aorta Normal size aortic root and proximal ascending aorta. CONCLUSIONS Normal LV function Previewed by: Dr. Berry Enrique MD (Electronically Signed) Final Date: 15 January 2023 11:07
--- NOTE | 2023-01-15 11:43 | P.CONS ---
History of Present Illness - Reason for Consult Consult date: 01/15/23 Pancreatitis Requesting physician: Maksim Schultz - Chief Complaint Abdominal pain - History of Present Illness This is a 37-year-old male with a past history of alcohol abuse, IV drug abuse, hepatitis C, tobacco abuse, chronic kidney disease, and chronic liver disease who presented to the emergency department with complaints of upper abdominal pain. Patient has a history of being in a coma for her approximately 3 months for years ago for decompensated liver cirrhosis, acute renal failure and was treated at [facility]. During that time also underwent biliary stent placement. States he follows with [facility] resident care coordinator and surgical tech. Patient had come to the emergency department this past Thursday with complaints of abdominal pain and was noted to have elevated lipase at 1539. He had a CT of the abdomen and pelvis which reported surface nodularity of the liver, correlate for early hepatic cirrhosis. Common bile duct stent terminates in the duodenum. Splenomegaly measuring up to 15 cm. At that time it reported that pancreas was unremarkable with no ductal dilation. Patient was encouraged be admitted however patient wanted to go home because he had an appointment with his new surgeon on a [facility] the next day. He returned to the emergency department 2 days later again with abdominal pain, in the epigastric region, he was sent home again. Patient saw his PCP yesterday and was told to come to the emergency department for admission. Patient admitted with pancreatitis. He denies any nausea or vomiting. States abdominal pain resolved. He reports he had no previous history of known pancreatitis. He denies any alcohol use and states it has been four years since he last drank. Patient is supposed to have possible gallbladder removed and biliary stent with [facility]. Labs WBC 5.6 hemoglobin 15.8 hematocrit 49 platelet count 170,000 INR 1.1 sodium 141 potassium 4.4 BUN 25 creatinine 1.9 total bilirubin 0.3 AST 38 ALTs 45 alkaline phosphatase 129 amylase 133 Review of Systems REVIEW OF SYSTEMS: CARDIOPULMONARY: No chest pain or shortness of breath. Gastrointestinal: Epigastric pain radiating to back now resolved. No nausea or vomiting. No hematemesis, coffee-ground emesis. No rectal bleeding, or melena. GENITOURINARY: No dysuria or hematuria. MUSCULOSKELETAL: Reports normal range of motion. SKIN: No rashes. No jaundice. ENDOCRINE: No chills, fevers. No excessive weight gain or loss. No polydipsia or polyuria. PSYCHIATRIC: Unremarkable. NEUROLOGY: No change in mental status. Denies dizziness, headache. ENT: Vision unremarkable. CONSTITUTIONAL: No recent weight loss. No fever, chills, night sweats. Past Medical History Past Medical History: Dialysis, Hypertension, Liver Disease, Pneumonia, Renal Disease Additional Past Medical History / Comment(s): ETOH abuse, alcoholic hepatitis, 02/05/17 serology lab +for hepatitis C but pt unaware, B12 deficiency, hx of IVDA- heroin but none for almost 8 yrs, On dialysis over 1 year. "I was in a coma for 3 months" History of Any Multi-Drug Resistant Organisms: None Reported Past Surgical History: No Surgical Hx Reported Additional Past Surgical History / Comment(s): tracheotomy, PEG tube placement, stent in gall bladder, L arm fistula Past Anesthesia/Blood Transfusion Reactions: No Reported Reaction Past Psychological History: ADD/ADHD Additional Psychological History / Comment(s): Pt resides with his grandparents. He does not drive but states he is able to get rides to [facility] Smoking Status: Vaper Past Alcohol Use History: None Reported Additional Past Alcohol Use History / Comment(s): Pt started smoking in 1998 and is a 0.25 ppd smoker. Past Drug Use History: None Reported Additional Drug Use History / Comment(s): CLEAN FROM HEROIN FOR ALMOST 8 YEARS - Past Family History Father Family Medical History: No Reported History Additional Family Medical History / Comment(s): Father is a heroin addict now on methadone. Mother Family Medical History: Hypertension Medications and Allergies Home Medications Medication Instructions Recorded Confirmed Type QUEtiapine [SEROquel] 50 mg PO HS 09/08/19 01/14/23 History Dextroamphetamine/Amphetamine 30 mg PO BID 07/16/22 01/14/23 History [Adderall] Sodium Bicarbonate 650 mg PO BID 07/16/22 01/14/23 History calcitrioL [Calcitriol] 0.25 mcg PO MOTH 07/16/22 01/14/23 History Dapagliflozin Propanediol [Farxiga] 5 mg PO DAILY 08/14/22 01/14/23 History Ergocalciferol [Vitamin D2 (1250 1,250 mcg PO QMONTHLY 08/14/22 01/14/23 History Mcg = 56320 Iu)] Losartan Potassium 50 mg PO DAILY 08/14/22 01/14/23 History Sildenafil Citrate 100 mg PO DAILY PRN 01/05/23 01/14/23 History Allergies Allergy/AdvReac Type Severity Reaction Status Date / Time No Known Allergies Allergy Verified 01/14/23 12:12 Physical Exam Vitals: Vital Signs Temp Pulse Pulse Resp BP BP Pulse Ox 01/15/23 07:11 98.4 F 111 H 18 137/92 99 01/15/23 01:41 98.7 F 97 18 140/81 98 01/14/23 21:00 18 01/14/23 20:00 98.2 F 93 16 159/91 98 01/14/23 15:00 68 18 126/67 98 01/14/23 13:00 72 18 130/64 99 01/14/23 11:00 74 18 136/82 98 01/14/23 10:55 98 F 86 20 149/100 99 Intake and Output 01/14/23 01/15/23 01/15/23 22:59 06:59 14:59 Intake Total 900 Balance 900 Intake: Intake, IV Titration 900 Amount Sodium Chloride 0.9% 1, 900 000 ml @ 75 mls/hr IV . [id number] [facility] Rx#:[id number] Other: Voiding Method Toilet # Voids 3 Weight 79.832 kg General appearance: The patient is alert, oriented, appears in no acute distress. HET: Head is normocephalic and atraumatic. Conjunctiva pink. Sclera anicteric. Neck: Supple without lymphadenopathy. Trachea midline. Heart: S1 S2. Regular rate and rhythm. Lungs: Clear to auscultation. Abdomen: Soft, nontender, nondistended with bowel sounds. No guarding or rigidity. Skin: No rashes. No jaundice. Extremities: Normal skin color and turgor. No pedal edema. Neurological: No focal deficits. Alert and oriented x3. Results CBC & Chem 7: 01/15/23 14:05 01/15/23 14:05 Labs: Abnormal Lab Results - Last 24 Hours (Table) 01/14/23 Range/Units 11:45 Chloride 113 H (98-107) mmol/L Carbon Dioxide 16 L (22-30) mmol/L BUN 25 H (9-20) mg/dL Creatinine 1.92 H (0.66-1.25) mg/dL Glucose 106 H (74-99) mg/dL Alkaline Phosphatase 129 H (38-126) U/L Amylase 133 H (30-110) U/L Lipase 367 H (23-300) U/L Assessment and Plan (1) Acute pancreatitis Narrative/Plan: 37-year-old male who presented to the emergency department 4 days ago with complaints of epigastric pain had elevated lipase greater than [address] of the abdomen and pelvis which did not report any pancreatitis, however patient did have surface nodularity of the liver correlate for early hepatic cirrhosis. Common bile duct stent terminates in the duodenum and splenomegaly. Consistent with his known underlying alcoholic cirrhosis of the liver. Patient follows with [facility] and has a biliary stent that was placed approximately 4 years ago and has been replaced by his resident care coordinator Dr. Lee about 1-1/2 years ago, he follows closely with them. Patient has history of heavy alcohol abuse 10 to 15 years, quit about 4 years ago after being in a coma. LFTs are normal other than mild elevation of alkaline phosphatase. Pain is improved. Patient with acute uncomplicated pancreatitis, resolving. Etiology likely alcoholic pancreatitis, related to long history of alcoholism. Current Visit: Yes Status: Acute Code(s): K85.90 - ACUTE PANCREATITIS WITHOUT NECROSIS OR INFECTION, UNSP SNOMED Code(s): 937139211 (2) GERD (gastroesophageal reflux disease) Current Visit: Yes Status: Acute Code(s): K21.9 - GASTRO-ESOPHAGEAL REFLUX DISEASE WITHOUT ESOPHAGITIS SNOMED Code(s): 082913514 (3) History of alcoholism Current Visit: Yes Status: Acute Code(s): F10.21 - ALCOHOL DEPENDENCE, IN REMISSION SNOMED Code(s): 421875584 (4) History of liver disease Current Visit: Yes Status: Acute Code(s): Z87.19 - PERSONAL HISTORY OF OTHER DISEASES OF THE DIGESTIVE SYSTEM SNOMED Code(s): 595683306 Plan: 1. Continue symptomatic and supportive care 2. Advance diet as tolerated 3. HIDA scan ordered per PCP 4. Pain medications as needed per primary medical physician 5. Protonix 40 mg daily 6. Discussed anti-reflex measures 7. No further workup indicated. Recommend outpatient follow-up as scheduled with [facility] specialists Thank you for this consultation, we will continue to follow. Dr. Fredrick Enrique I agree with the dictator's note, documented as a scribe by Almita Ceja.
[2023-01-15 14:32] LABS: HCT 52.3 % (39.0-53.0); HGB 16.7 gm/dL (13.0-17.5); MCV 90.8 fL (80.0-100.0); Mean Platelet Volume 7.9; Platelet Count 188 k/uL (150-450); RBC 5.77 m/uL (4.30-5.90); RDW 14.8 % (11.5-15.5); WBC 8.3 k/uL (3.8-10.6)
[2023-01-15 14:35] LABS: ALT 169 U/L (4-49); AST 172 U/L (17-59); African American GFR (CKD) 54 (>60 ml/min/1.73 sqM); Albumin 4.7 g/dL (3.5-5.0); Albumin/Globulin Ratio 1.4; Alkaline Phosphatase 144 U/L (38-126); Anion Gap 10 mmol/L; Blood Urea Nitrogen 23 mg/dL (9-20); Calcium 9.7 mg/dL (8.4-10.2); Carbon Dioxide 22 mmol/L (22-30); Chloride 107 mmol/L (98-107); Globulin 3.4 g/dL; Glucose 107 mg/dL (74-99); Lipase 93 U/L (23-300); Non-African American GFR(CKD) 46 (>60 ml/min/1.73 sqM); Potassium 4.3 mmol/L (3.5-5.1); Sodium 139 mmol/L (137-145); Total Bilirubin 2.1 mg/dL (0.2-1.3); Total Protein 8.1 g/dL (6.3-8.2)
[2023-01-15] MEDS: SODIUM BICARBONATE TAB 650 MG TAB PO SCH ×2 (15:20→20:01)
[2023-01-15] MEDS: DAPAGLIFLOZIN PROPANEDIOL 5 MG TABLET PO SCH (15:20)
--- NOTE | 2023-01-15 15:23 | NM ---
Nuclear medicine hepatobiliary scan. HISTORY: Pain. COMPARISON: Ultrasound 01/05/2023. DOSAGE: The patient received 8 0z Ensure plus and 4.2 mCi of Technetium 99m Choletec. FINDINGS: There is normal hepatic extraction. The gallbladder is thick gallbladder is not seen at 90 minutes correlate for cholecystitis. IMPRESSION: 1. Nonvisualization the gallbladder at 90 minutes and 4 hour delay. Finding could be related to drain age biliary catheter which appears to extend from the gallbladder fossa to the small bowel recent CT scan. Correlate with surgical history. Cholecystitis cannot be excluded due to the lack of appearance of the gallbladder.
[2023-01-15] MEDS ORDERED: ALPRAZolam 0.25 MG TAB PO STA (16:22)
--- NOTE | 2023-01-15 18:40 | CT ---
EXAMINATION TYPE: CT chest wo con DATE OF EXAM: 01/15/2023 COMPARISON: 03/01/2017 HISTORY: dyspnea CT DLP: 380.[address] of the chest was performed with lung and mediastinal window settings submitted. The la ck of contrast limits evaluation of the vascular, mediastinal and parenchymal structures including th e upper abdomen. LUNGS: The lungs are clear and free of infiltrate. No atelectasis. No pulmonary nodule or mass is de tected. No pleural effusion. No CT evidence of interstitial lung disease. MEDIASTINUM/LUCILLE: Thoracic aorta is of normal caliber with limited evaluation given lack of contrast . The heart is not enlarged. No evidence for mediastinal mass. No lymph nodes greater than 1cm. UPPER ABDOMEN: Common bile duct stent. Peripheral hepatic nodularity may reflect cirrhotic liver dise ase. Splenomegaly. OTHER: No significant other abnormality. IMPRESSION: 1. No significant abnormality to account for the patient's symptoms of dyspnea.
[2023-01-15] MEDS: ALPRAZolam 0.5 MG TAB PO PRN (20:01)
[2023-01-15] MEDS: QUEtiapine 50 MG TAB PO SCH (20:01)
[2023-01-15] MEDS: atenoloL 25 MG TAB PO SCH (22:43)
--- NOTE | 2023-01-16 01:32 | HP ---
HISTORY AND PHYSICAL HISTORY OF PRESENT ILLNESS: This is a 37-year-old with epigastric abdominal pain, positive pancreatitis, positive lipase. Remote history of alcoholism, drinking in the last 4 years, says he has a drink in 4 years. Came with pancreatitis, unclear etiology. Has a history of pancreatic stents. HIDA scan shows no gallbladder function. HOME MEDICINES: Reviewed. ALLERGIES: Negative. PAST MEDICAL HISTORY: History of dialysis, chronic kidney disease, hypertension, liver disease, pneumonia, renal disease, history of hepatitis, alcohol abuse. PAST SURGICAL HISTORY: Tracheostomy, PEG tube, left arm fistula, ADHD. PHYSICAL EXAMINATION: VITAL SIGNS: Temp 98, pulse 98, respiratory rate 18 to 20, blood pressure 149/100, and O2 99. PSYCH: Fair mood and affect. NEUROLOGIC: Cranial nerves intact. PSYCH: Fair mood and affect. LUNGS: Clear. CARDIOVASCULAR: S1, S2. HEMATOLOGY: Negative for Homans. LABS: Reviewed. ASSESSMENT: Acute on chronic pancreatitis, chronic abdominal pain, chronic renal disease. Prognosis guarded. Follow up in next 24 to 48 hours. Treat for pancreatitis. Surgical consultation, GI consultation for pancreatic stents and abnormal HIDA scan. MMODL / IJN: [id number] /
[2023-01-16] MEDS: HYDROmorphone 1 MG/ML 1 ML SYRINGE IVP PRN ×4 (01:33→20:46)
[2023-01-16] MEDS: ALPRAZolam 0.5 MG TAB PO PRN ×2 (02:00→16:11)
--- NOTE | 2023-01-16 07:28 | P.PN ---
Progress Note - Text Progress Note Date: 01/15/23 Patient was not his room when I was making rounds.
[2023-01-16] MEDS: atenoloL 25 MG TAB PO SCH ×2 (08:31→20:35)
[2023-01-16] MEDS: LOSARTAN 50 MG TAB PO SCH (08:31)
[2023-01-16] MEDS: DAPAGLIFLOZIN PROPANEDIOL 5 MG TABLET PO SCH (08:31)
[2023-01-16] MEDS: PANTOPRAZOLE 40 MG/10 ML VIAL IVP SCH (08:31)
[2023-01-16] MEDS: SODIUM BICARBONATE TAB 650 MG TAB PO SCH ×2 (08:31→20:35)
[2023-01-16] MEDS: SODIUM CHLORIDE 0.9% 1,000 ML IV SCH ×2 (08:41→20:50)
[2023-01-16 08:54] LABS: Basophils # (A) 0.02 X 10*3/uL (0.00-0.10); Basophils % (A) 0.6 %; Eosinophils # (A) 0.13 X 10*3/uL (0.04-0.35); Eosinophils % (A) 3.8 %; HCT 42.5 % (39.6-50.0); HGB 13.2 d/dL (13.0-17.0); Lymphocytes % (A) 20.5 %; MCH 28.3 pg (27.0-32.0); MCHC 31.1 d/dL (32.0-37.0); MCV 91.2 FL (80.0-97.0); Mean Platelet Volume 10.4 FL (9.5-12.2); Monocytes # (A) 0.57 X 10*3/uL (0.20-1.00); Monocytes % (A) 16.7 %; NRBC Per 100 WBC 0 X 10*3/uL (0.00-0.01); Neutrophils # (A) 1.98 X 10*3/uL (1.80-7.70); Neutrophils % (A) 57.8 %; Platelet Count 110 X 10*3/uL (140-440); RBC 4.66 X 10*6/uL (4.40-5.60); RDW 14.9 % (11.5-14.5); WBC 3.42 X 10*3/uL (4.50-10.00)
[2023-01-16 09:05] LABS: ALT 105 U/L (10-49); AST 58 U/L (14-35); Albumin 3.6 d/dL (3.8-4.9); Albumin/Globulin Ratio 1.64 Ratio (1.60-3.17); Alkaline Phosphatase 128 U/L (41-126); BUN/Creat Ratio 10.74 Ratio (12.00-20.00); Blood Urea Nitrogen 20.4 mg/dL (9.0-27.0); Calcium 8.4 mg/dL (8.7-10.3); Carbon Dioxide 21.4 mmol/L (21.6-31.8); Chloride 108 mmol/L (96-109); Globulin 2.2 d/dL (1.6-3.3); Glucose 90 mg/dL (70-110); Potassium 3.8 mmol/L (3.5-5.5); Sodium 139 mmol/L (135-145); Total Bilirubin 0.6 mg/dL (0.3-1.2); Total Protein 5.8 d/dL (6.2-8.2)
--- NOTE | 2023-01-16 09:46 | P.PN ---
Subjective Progress Note Date: 01/16/23 Principal diagnosis: Pancreatitis This is a 37-year-old male with a past history of alcohol abuse, IV drug abuse, hepatitis C, tobacco abuse, chronic kidney disease, and chronic liver disease who presented to the emergency department with complaints of upper abdominal pain. Patient has a history of being in a coma for her approximately 3 months for years ago for decompensated liver cirrhosis, acute renal failure and was treated at [facility]. During that time also underwent biliary stent placement. States he follows with [facility] medical office rep and director surgical. Patient had come to the emergency department this past Thursday with complaints of abdominal pain and was noted to have elevated lipase at 1539. He had a CT of the abdomen and pelvis which reported surface nodularity of the liver, correlate for early hepatic cirrhosis. Common bile duct stent terminates in the duodenum. Splenomegaly measuring up to 15 cm. At that time it reported that pancreas was unremarkable with no ductal dilation. Patient was encouraged be admitted however patient wanted to go home because he had an appointment with his new surgeon on a [facility] the next day. He returned to the emergency department 2 days later again with abdominal pain, in the epigastric region, he was sent home again. Patient saw his PCP yesterday and was told to come to the emergency department for admission. Patient admitted with pancreatitis. He denies any nausea or vomiting. States abdominal pain resolved. He reports he had no previous history of known pancreatitis. He denies any alcohol use and states it has been four years since he last drank. Patient is supposed to have possible gallbladder removed and biliary stent with [facility]. Labs WBC 5.6 hemoglobin 15.8 hematocrit 49 platelet count 170,000 INR 1.1 sodium 141 potassium 4.4 BUN 25 creatinine 1.9 total bilirubin 0.3 AST 38 ALTs 45 alkaline phosphatase 129 amylase 133 01/16/2023 Patient was seen and examined today as a follow-up. He is sitting up in bed. He states he is feeling much better. Denies any abdominal pain, nausea or vomiting. Yesterday's labs came back with increase in LFTs. Today's repeat labs, LFTs are trending down. Total bilirubin 0.6 AST 58 ALT 105 a clamp phosphatase 128. Patient had HIDA scan which reported nonvisualization of the gallbladder at 90 minutes and 4 hour delay. Finding could be related to drainage biliary catheter which appears to extend from the gallbladder fossa to the small bowel recent computed tomography scan. Correlate with surgical history. Cholecystitis cannot be excluded due to the lack of appearance of the gallbladder. Patient also underwent a chest CT for complaints of shortness of breath which showed no significant abnormality to account for patient's symptoms of dyspnea. Patient currently denies any chest pain or dyspnea at this time. He remains afebrile. Objective - Vital Signs Vital signs: Vital Signs Temp 98.9 F 01/16/23 02:00 Pulse 100 01/16/23 02:00 Resp 18 01/16/23 02:00 BP 134/81 01/16/23 02:00 Pulse Ox 98 01/16/23 02:00 FiO2 Intake & Output 01/15/23 01/16/23 01/16/23 18:59 06:59 18:59 Intake Total 900 Balance 900 Intake: Intake, IV Titration 900 Amount Sodium Chloride 0.9% 1, 900 000 ml @ 75 mls/hr IV . [id number] [facility] Rx#:[id number] Other: Voiding Method Toilet # Voids 2 - Exam General appearance: The patient is alert, oriented, appears in no acute distress. HET: Head is normocephalic and atraumatic. Conjunctiva pink. Sclera anicteric. Neck: Supple without lymphadenopathy. Abdomen: Soft, nontender, nondistended with bowel sounds. No guarding or rigidity. Extremities: Normal skin color and turgor. No pedal edema Skin: No rashes, no jaundice Neurological: No focal deficits. Alert and oriented. - Labs CBC & Chem 7: 01/16/23 05:53 01/16/23 05:53 Labs: Abnormal Lab Results - Last 24 Hours (Table) 01/15/23 Range/Units 14:05 BUN 23 H (9-20) mg/dL Creatinine 1.82 H (0.66-1.25) mg/dL Glucose 107 H (74-99) mg/dL Total Bilirubin 2.1 H (0.2-1.3) mg/dL AST 172 H (17-59) U/L ALT 169 H (4-49) U/L Alkaline Phosphatase 144 H (38-126) U/L Assessment and Plan (1) Acute pancreatitis Narrative/Plan: 37-year-old male who presented to the emergency department 4 days ago with complaints of epigastric pain had elevated lipase greater than [address] of the abdomen and pelvis which did not report any pancreatitis, however patient did have surface nodularity of the liver correlate for early hepatic cirrhosis. Common bile duct stent terminates in the duodenum and splenomegaly. Consistent with his known underlying alcoholic cirrhosis of the liver. Patient follows with [facility] and has a biliary stent that was placed approximately 4 years ago and has been replaced by his medical office rep Dr. Lee about 1-1/2 years ago, he follows closely with them. Patient has history of heavy alcohol abuse 10 to 15 years, quit about 4 years ago after being in a coma. LFTs are normal other than mild elevation of alkaline phosphatase. Pain is improved. Patient with acute uncomplicated pancreatitis, resolving. Etiology likely alcoholic pancreatitis, related to long history of alcoholism. Patient with spike and LFTs with a total bilirubin of 2.1, AST 172 ALT 169 alkaline phosphatase 144 with repeat labs trending down again. Unclear etiology could be related to statin. Patient again to follow up with [facility] medical office rep and surgeon as scheduled. No further workup indicated at this time from gastroenterology. Current Visit: Yes Status: Acute Code(s): K85.90 - ACUTE PANCREATITIS WITHOUT NECROSIS OR INFECTION, UNSP SNOMED Code(s): 412460807 (2) GERD (gastroesophageal reflux disease) Current Visit: Yes Status: Acute Code(s): K21.9 - GASTRO-ESOPHAGEAL REFLUX DISEASE WITHOUT ESOPHAGITIS SNOMED Code(s): 782821224 (3) History of alcoholism Current Visit: Yes Status: Acute Code(s): F10.21 - ALCOHOL DEPENDENCE, IN REMISSION SNOMED Code(s): 800388895 (4) History of liver disease Current Visit: Yes Status: Acute Code(s): Z87.19 - PERSONAL HISTORY OF OTHER DISEASES OF THE DIGESTIVE SYSTEM SNOMED Code(s): 509307732 (5) Transaminitis Current Visit: No Status: Acute Code(s): R74.0 - NONSPEC ELEV OF LEVELS OF TRANSAMNS & LACTIC * DO NOT USE * SNOMED Code(s): 508185132 Plan: 1. Continue symptomatic and supportive care 2. Advance diet as tolerated 3. Pain medications as needed per primary medical physician 4. Protonix 40 mg daily 5. Discussed anti-reflex measures 6. No further workup indicated by gastroenterology. Recommend outpatient follow-up as scheduled with [facility] specialists Thank you for this consultation, Yola is cleared from gastroenterology for discharge. We will sign off at this time. Dr. Fredrick Enrique I agree with the dictator's note, documented as a scribe by Almita Ceja.
--- NOTE | 2023-01-16 12:11 | P.GSCN ---
History of Present Illness Consult date: 01/16/23 Reason for Consult: History of pancreatitis History of present illness: This is a 37-year-old with multiple medical history. Patient's complex surgical past. He has history of a biliary stent. Patient was admitted to the hospital complaints of abdominal pain. His pain is improved. Patient has a relationship with gastroenterology and general surgery at [facility]. Today the patient feels improved. He has no significant pain today. Past Medical History Past Medical History: Dialysis, Hypertension, Liver Disease, Pneumonia, Renal Disease Additional Past Medical History / Comment(s): ETOH abuse, alcoholic hepatitis, 02/05/17 serology lab +for hepatitis C but pt unaware, B12 deficiency, hx of IVDA- heroin but none for almost 8 yrs, On dialysis over 1 year. "I was in a coma for 3 months" History of Any Multi-Drug Resistant Organisms: None Reported Past Surgical History: No Surgical Hx Reported Additional Past Surgical History / Comment(s): tracheotomy, PEG tube placement, stent in gall bladder, L arm fistula Past Anesthesia/Blood Transfusion Reactions: No Reported Reaction Past Psychological History: ADD/ADHD Additional Psychological History / Comment(s): Pt resides with his grandparents. He does not drive but states he is able to get rides to appts ec Smoking Status: Vaper Past Alcohol Use History: None Reported Additional Past Alcohol Use History / Comment(s): Pt started smoking in 1998 and is a 0.25 ppd smoker. Past Drug Use History: None Reported Additional Drug Use History / Comment(s): CLEAN FROM HEROIN FOR ALMOST 8 YEARS - Past Family History Father Family Medical History: No Reported History Additional Family Medical History / Comment(s): Father is a heroin addict now on methadone. Mother Family Medical History: Hypertension Medications and Allergies Home Medications Medication Instructions Recorded Confirmed Type QUEtiapine [SEROquel] 50 mg PO HS 09/08/19 01/14/23 History Dextroamphetamine/Amphetamine 30 mg PO BID 07/16/22 01/14/23 History [Adderall] Sodium Bicarbonate 650 mg PO BID 07/16/22 01/14/23 History calcitrioL [Calcitriol] 0.25 mcg PO MOTH 07/16/22 01/14/23 History Dapagliflozin Propanediol [Farxiga] 5 mg PO DAILY 08/14/22 01/14/23 History Ergocalciferol [Vitamin D2 (1250 1,250 mcg PO QMONTHLY 08/14/22 01/14/23 History Mcg = 80298 Iu)] Losartan Potassium 50 mg PO DAILY 08/14/22 01/14/23 History Sildenafil Citrate 100 mg PO DAILY PRN 01/05/23 01/14/23 History Allergies Allergy/AdvReac Type Severity Reaction Status Date / Time No Known Allergies Allergy Verified 01/14/23 12:12 Surgical - Exam Vital Signs Temp Pulse Resp BP Pulse Ox 98 F 86 20 149/100 99 01/14/23 10:55 01/14/23 10:55 01/14/23 10:55 01/14/23 10:55 01/14/23 10:55 - General well developed, well nourished - Eyes PERRL - ENT normal pinna - Neck no masses - Respiratory normal expansion - Cardiovascular Rhythm: regular - Abdomen Abdomen: soft, non tender Results - Labs 01/16/23 05:53 01/16/23 05:53 Abnormal Lab Results - Last 24 Hours (Table) 01/15/23 01/16/23 01/16/23 Range/Units 14:05 05:53 05:53 WBC 3.42 L (4.50-10.00) X 10*3/uL MCHC 31.1 L (32.0-37.0) d/dL RDW 14.9 H (11.5-14.5) % Plt Count 110 L (140-440) X 10*3/uL Lymphocytes # 0.70 L (0.90-5.00) X 10*3/uL Carbon Dioxide 21.4 L (21.6-31.8) mmol/L BUN 23 H (9-20) mg/dL Creatinine 1.82 H 1.9 H (0.66-1.25) mg/dL Est GFR (CKD-EPI) 46 L (>=60) BUN/Creatinine Ratio 10.74 L (12.00-20.00) Ratio Glucose 107 H (74-99) mg/dL Calcium 8.4 L (8.7-10.3) mg/dL Total Bilirubin 2.1 H (0.2-1.3) mg/dL AST 172 H 58 H (17-59) U/L ALT 169 H 105 H (4-49) U/L Alkaline Phosphatase 144 H 128 H (38-126) U/L Total Protein 5.8 L (6.2-8.2) d/dL Albumin 3.6 L (3.8-4.9) d/dL Diabetes panel 01/15/23 01/16/23 Range/Units 14:05 05:53 Sodium 139 139 (137-145) mmol/L Potassium 4.3 3.8 (3.5-5.1) mmol/L Chloride 107 108 (98-107) mmol/L Carbon Dioxide 22 21.4 L (22-30) mmol/L BUN 23 H 20.4 (9-20) mg/dL Creatinine 1.82 H 1.9 H (0.66-1.25) mg/dL Glucose 107 H 90 (74-99) mg/dL Calcium 9.7 8.4 L (8.4-10.2) mg/dL AST 172 H 58 H (17-59) U/L ALT 169 H 105 H (4-49) U/L Alkaline Phosphatase 144 H 128 H (38-126) U/L Total Protein 8.1 5.8 L (6.3-8.2) g/dL Albumin 4.7 3.6 L (3.5-5.0) g/dL Calcium panel 01/15/23 01/16/23 Range/Units 14:05 05:53 Calcium 9.7 8.4 L (8.4-10.2) mg/dL Albumin 4.7 3.6 L (3.5-5.0) g/dL Pituitary panel 01/15/23 01/16/23 Range/Units 14:05 05:53 Sodium 139 139 (137-145) mmol/L Potassium 4.3 3.8 (3.5-5.1) mmol/L Chloride 107 108 (98-107) mmol/L Carbon Dioxide 22 21.4 L (22-30) mmol/L BUN 23 H 20.4 (9-20) mg/dL Creatinine 1.82 H 1.9 H (0.66-1.25) mg/dL Glucose 107 H 90 (74-99) mg/dL Calcium 9.7 8.4 L (8.4-10.2) mg/dL Adrenal panel 01/15/23 01/16/23 Range/Units 14:05 05:53 Sodium 139 139 (137-145) mmol/L Potassium 4.3 3.8 (3.5-5.1) mmol/L Chloride 107 108 (98-107) mmol/L Carbon Dioxide 22 21.4 L (22-30) mmol/L BUN 23 H 20.4 (9-20) mg/dL Creatinine 1.82 H 1.9 H (0.66-1.25) mg/dL Glucose 107 H 90 (74-99) mg/dL Calcium 9.7 8.4 L (8.4-10.2) mg/dL Total Bilirubin 2.1 H 0.6 (0.2-1.3) mg/dL AST 172 H 58 H (17-59) U/L ALT 169 H 105 H (4-49) U/L Alkaline Phosphatase 144 H 128 H (38-126) U/L Total Protein 8.1 5.8 L (6.3-8.2) g/dL Albumin 4.7 3.6 L (3.5-5.0) g/dL Assessment and Plan Assessment: Resolving abdominal pain. Patient will be following up with his medical team at [facility]. No surgical intervention is planned
[2023-01-16] MEDS: ONDANSETRON 4 MG/2 ML VIAL IVP PRN (20:35)
[2023-01-16] MEDS: QUEtiapine 50 MG TAB PO SCH (20:35)
[2023-01-17] MEDS: ALPRAZolam 0.5 MG TAB PO PRN ×3 (01:01→23:57)
[2023-01-17] MEDS: HYDROmorphone 1 MG/ML 1 ML SYRINGE IVP PRN ×5 (01:02→23:53)
--- NOTE | 2023-01-17 03:13 | PN ---
PROGRESS NOTE SUBJECTIVE: Pancreatitis. Positive HIDA scan showing no gallbladder uptake due to possible biliary stent discharged, sent down to his GI doctor in [place] with kidney function maintained steady. His pancreatitis is getting better. His pain is getting better. We are going to advance his diet, possibly go home in the morning. Prognosis guarded. OBJECTIVE: CARDIOVASCULAR: S1, S2. LUNGS: Clear. GI: Soft. HEMATOLOGY: Negative Homans. PSYCHIATRIC: Fair mood and affect. ASSESSMENT: Acute pancreatitis, new onset. Normal HIDA scan. History of alcohol abuse in the past. PLAN: Prognosis guarded. Possible discharge home tomorrow and advance his diet. Monitor lipase levels. MMODL / IJN: [id number] /
[2023-01-17] MEDS: PANTOPRAZOLE 40 MG/10 ML VIAL IVP SCH (08:28)
[2023-01-17] MEDS: LOSARTAN 50 MG TAB PO SCH (08:28)
[2023-01-17] MEDS: SODIUM BICARBONATE TAB 650 MG TAB PO SCH ×2 (08:28→21:26)
[2023-01-17] MEDS: DAPAGLIFLOZIN PROPANEDIOL 5 MG TABLET PO SCH (08:28)
[2023-01-17] MEDS: atenoloL 25 MG TAB PO SCH ×2 (08:28→21:27)
[2023-01-17 09:27] LABS: Basophils # (A) 0.02 X 10*3/uL (0.00-0.10); Basophils % (A) 0.6 %; Eosinophils # (A) 0.12 X 10*3/uL (0.04-0.35); Eosinophils % (A) 3.7 %; HGB 13.3 d/dL (13.0-17.0); Lymphocytes % (A) 24.4 %; MCH 28.7 pg (27.0-32.0); MCHC 31.7 d/dL (32.0-37.0); MCV 90.5 FL (80.0-97.0); Mean Platelet Volume 10.5 FL (9.5-12.2); Monocytes # (A) 0.64 X 10*3/uL (0.20-1.00); Monocytes % (A) 19.5 %; NRBC Per 100 WBC 0 X 10*3/uL (0.00-0.01); Neutrophils # (A) 1.67 X 10*3/uL (1.80-7.70); Neutrophils % (A) 50.9 %; Platelet Count 114 X 10*3/uL (140-440); RBC 4.64 X 10*6/uL (4.40-5.60); WBC 3.28 X 10*3/uL (4.50-10.00)
[2023-01-17 10:26] LABS: ALT 76 U/L (10-49); AST 37 U/L (14-35); Albumin 3.6 d/dL (3.8-4.9); Albumin/Globulin Ratio 1.64 Ratio (1.60-3.17); Alkaline Phosphatase 129 U/L (41-126); BUN/Creat Ratio 10.76 Ratio (12.00-20.00); Blood Urea Nitrogen 26.9 mg/dL (9.0-27.0); Calcium 8.7 mg/dL (8.7-10.3); Carbon Dioxide 22.8 mmol/L (21.6-31.8); Chloride 108 mmol/L (96-109); Globulin 2.2 d/dL (1.6-3.3); Glucose 130 mg/dL (70-110); Sodium 139 mmol/L (135-145); Total Bilirubin 0.3 mg/dL (0.3-1.2); Total Protein 5.8 d/dL (6.2-8.2)
--- NOTE | 2023-01-17 10:36 | P.PN ---
Progress Note - Text Progress Note Date: 01/17/23 Patient feels somewhat better today. On exam vital signs are stable. Abdomen soft. There is some minimal tenderness. There is no rebound or guarding. History of pancreatitis with multiple medical problems. Patient has a biliary stent. Patient should follow-up with his GI team and pancreatic surgeon at [facility].
[2023-01-17] MEDS: QUEtiapine 50 MG TAB PO SCH (21:26)
[2023-01-17] MEDS: SODIUM CHLORIDE 0.9% 1,000 ML IV SCH ×2 (21:27→23:55)
--- NOTE | 2023-01-18 02:05 | PN ---
PROGRESS NOTE SUBJECTIVE: A 37-year-old white male, positive pancreatitis, still has chronic abdominal pain. Waiting for possible transfer to [facility] . OBJECTIVE: CARDIOVASCULAR: S1, S2. LUNGS: Clear. GI: Soft. HEMATOLOGY: Negative Homans. PLAN: Possible discharge to [facility] for surgery and gallbladder we will discuss this with surgery and GI prior to transfer. MMODL / IJN: [id number] /
[2023-01-18] MEDS: ONDANSETRON 4 MG/2 ML VIAL IVP PRN (02:34)
[2023-01-18] MEDS: HYDROmorphone 1 MG/ML 1 ML SYRINGE IVP PRN ×3 (05:51→16:47)
[2023-01-18] MEDS: SODIUM CHLORIDE 0.9% 1,000 ML IV SCH (08:26)
[2023-01-18] MEDS: DAPAGLIFLOZIN PROPANEDIOL 5 MG TABLET PO SCH (08:27)
[2023-01-18] MEDS: LOSARTAN 50 MG TAB PO SCH (08:27)
[2023-01-18] MEDS: atenoloL 25 MG TAB PO SCH (08:27)
[2023-01-18] MEDS: PANTOPRAZOLE 40 MG/10 ML VIAL IVP SCH (08:27)
[2023-01-18] MEDS: SODIUM BICARBONATE TAB 650 MG TAB PO SCH (08:27)
[2023-01-18 08:49] VITALS: RESP 16
[2023-01-18] MEDS: ALPRAZolam 0.5 MG TAB PO PRN (08:57)
[2023-01-18 13:01] VITALS: BP 132/85; PULSE 87; TEMP 98.2
--- NOTE | 2023-01-18 14:37 | P.PN ---
Progress Note - Text Progress Note Date: 01/18/23 Patient is minimal complaints of abdominal pain. Apparently being transferred to [facility] today. On exam vital signs are stable. Abdomen soft. History of pancreatitis and biliary stent. Patient will follow-up with his GI team at [facility].
[2023-01-28] MEDS ORDERED: ERGOCALCIFEROL 1,250 MCG (50,000 IU) CAPSULE PO SCH (09:00)
== END 2023-01-18 18:06 | disposition left against medical advice (07) ==
LOC: EC 10:48 → 6NMEDSUR 12:30 → 5NMEDONC 18:29
PROVIDERS: ADMIT Family Medicine; ATTEND Family Medicine
DX: K85.90 Acute pancreatitis without necrosis or infection, unspecified (principal); K86.1 Other chronic pancreatitis; G89.29 Other chronic pain; R10.9 Unspecified abdominal pain; K21.9 Gastro-esophageal reflux disease without esophagitis; B19.20 Unspecified viral hepatitis C without hepatic coma; E53.8 Deficiency of other specified B group vitamins; I12.9 Hypertensive chronic kidney disease with stage 1 through stage 4 chronic kidney disease, or unspecified chronic kidney disease; N18.9 Chronic kidney disease, unspecified; Z99.2 Dependence on renal dialysis; F90.9 Attention-deficit hyperactivity disorder, unspecified type; Z87.01 Personal history of pneumonia (recurrent); Z79.84 Long term (current) use of oral hypoglycemic drugs; Z71.9 Counseling, unspecified; Z81.3 Family history of other psychoactive substance abuse and dependence; Z82.49 Family history of ischemic heart disease and other diseases of the circulatory system
CPT/HCPCS: 36415; 71250; 78226; 80053; 82150; 83690; 85025; 85027; 87635; 93306; 96361; 96374; 96375; 96376; 99284

== ENCOUNTER 2023-02-05 15:21 | Emergency (ER) | payer OTHER ==
[2023-02-05] MEDS ORDERED: ONDANSETRON 4 MG/2 ML VIAL IVP STA (15:54)
[2023-02-05] MEDS ORDERED: HYDROmorphone 1 MG/ML 1 ML SYRINGE IVP STA ×2 (15:54→17:53)
--- NOTE | 2023-02-05 16:13 | ED ---
Abdominal Pain HPI - General Chief Complaint: Abdominal Pain Stated Complaint: pancreatitis Time Seen by Provider: 02/05/23 15:36 Source: patient, RN notes reviewed Mode of arrival: wheelchair Limitations: no limitations - History of Present Illness Initial Comments: This is a 37-year-old male who presents to the emergency department for abdominal pain. States that this is in the epigastric region with radiation into the back. Pain started 5 days ago. He has associated nausea but no vomiting. Reports recurrent problems with pancreatitis, and states that this feels the same. He had a stent placed in his gallbladder in early 2019 at [facility]. He was told that this is likely the cause of the recurrent pancreatitis and should be removed. However, he became scared to go to [facility] last time due to previously being very ill and on a ventilator there. He made an appointment with them, but states that they cannot see him until next month. Denies any fevers, chills, sore throat, cough, dyspnea, chest pain, palpitations, vomiting, diarrhea, or headaches. MD Complaint: abdominal pain - Related Data Home Medications Medication Instructions Recorded Confirmed QUEtiapine [SEROquel] 50 mg PO HS 09/08/19 01/14/23 Dextroamphetamine/Amphetamine 30 mg PO BID 07/16/22 01/14/23 [Adderall] Sodium Bicarbonate 650 mg PO BID 07/16/22 01/14/23 calcitrioL [Calcitriol] 0.25 mcg PO MOTH 07/16/22 01/14/23 Dapagliflozin Propanediol [Farxiga] 5 mg PO DAILY 08/14/22 01/14/23 Ergocalciferol [Vitamin D2 (1250 1,250 mcg PO QMONTHLY 08/14/22 01/14/23 Mcg = 77802 Iu)] Losartan Potassium 50 mg PO DAILY 08/14/22 01/14/23 Sildenafil Citrate 100 mg PO DAILY PRN 01/05/23 01/14/23 Previous Rx's Medication Instructions Recorded HYDROcodone/APAP 7.5-325MG [[place] 1 tab PO Q6HR PRN 3 Days #12 tab 02/05/23 7.5-325] Ondansetron Odt [Zofran Odt] 4 mg PO Q8HR PRN #20 tab 02/05/23 Allergies Allergy/AdvReac Type Severity Reaction Status Date / Time No Known Allergies Allergy Verified 01/14/23 12:12 Review of Systems ROS Statement: Those systems with pertinent positive or pertinent negative responses have been documented in the HPI. ROS Other: All systems not noted in ROS Statement are negative. 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 "I was in a coma for 3 months" History of Any Multi-Drug Resistant Organisms: None Reported Past Surgical History: No Surgical Hx Reported Additional Past Surgical History / Comment(s): tracheotomy, PEG tube placement, stent in gall bladder, L arm fistula Past Anesthesia/Blood Transfusion Reactions: No Reported Reaction Past Psychological History: ADD/ADHD Smoking Status: Vaper - Past Family History Father Family Medical History: No Reported History Additional Family Medical History / Comment(s): Father is a heroin addict now on methadone. Mother Family Medical History: Hypertension General Exam Limitations: no limitations General appearance: alert, in distress Head exam: Present: atraumatic, normocephalic, normal inspection Respiratory exam: Present: normal lung sounds bilaterally. Absent: respiratory distress, wheezes, rales, rhonchi, stridor Cardiovascular Exam: Present: regular rate, normal rhythm, normal heart sounds. Absent: systolic murmur, diastolic murmur, rubs, gallop, clicks GI/Abdominal exam: Present: soft, tenderness (epigastric), normal bowel sounds. Absent: distended Neurological exam: Present: alert, oriented X3, CN II-XII intact Psychiatric exam: Present: normal affect, normal mood Skin exam: Present: warm, dry, intact, normal color. Absent: rash Course Vital Signs 02/05/23 02/05/23 02/05/23 15:25 16:47 17:39 Temperature 98 F Pulse Rate 129 H 100 114 H Respiratory 20 18 20 Rate Blood Pressure 126/76 159/97 132/66 O2 Sat by Pulse 98 97 98 Oximetry 02/05/23 02/05/23 18:11 18:45 Temperature 98.5 F Pulse Rate 105 H Respiratory 18 Rate Blood Pressure 134/81 O2 Sat by Pulse 99 Oximetry Medical Decision Making - Medical Decision Making This is a 37-year-old male who presents to the emergency department for abdominal pain. Was pt. sent in by a medical professional or institution? @ -No Did you speak to anyone other than the patient for history? @ -No Did you review nursing and triage notes? @ -Yes, and I agree, it is accurate with regards to the patient's symptoms. Were old charts reviewed? @ -No Differential Diagnosis? @ -Differential Abdominal Pain Men: Appendicitis, cholecystitis, diverticulosis, ischemic bowel, pancreatitis, hepatitis, UTI, gastroenteritis, AAA, incarcerated hernia, bowel obstruction, constipation, inflammatory bowel, hepatitis, peptic ulcer disease, splenic infarction, perforated viscus, testicular torsion, this is not meant to be an all-inclusive list EKG interpreted by me (3pts min.)? @ -Not obtained X-rays interpreted by me (1pt min.)? @ -Not obtained CT interpreted by me (1pt min.)? @ -Not obtained U/S interpreted by me (1pt. min.)? @ -Not obtained What testing was considered but not performed? (CT, X-rays, U/S, labs)? Why? @ -None What meds were considered but not given? Why? @ -None Did you discuss the management of the patient with other professionals? @ -No Did you reconcile home meds? @ -No Was smoking cessation discussed for >3mins.? @ -No Was critical care preformed (if so, how long)? @ -No Were there social determinants of health that impacted care today? How? (Home lessness, low income, unemployed, alcoholism, drug addiction, transportation, low edu. Level, literacy, decrease access to med. care, intermediate, rehab)? @ -No Was there de-escalation of care discussed even if they declined? (Discuss DNR or withdrawal of care, Hospice)? @ -No What co-morbidities impacted this encounter? (DM, HTN, Smoking, COPD, CAD, Cancer, CVA, Hep., AIDS, mental health diagnosis, sleep apnea, morbid obesity)? @ -Chronic pancreatitis, liver disease, HTN, renal disease Was patient admitted / discharged? @ -Discharged. Lab work obtained and found to be nonactionable. Discussed with the patient that because his pancreatic enzymes are normal, there is no indication for admission or initiating a transfer to [facility] at this time. His pain was well controlled in the emergency department. He was also given a liter bolus of IV fluids for dehydration. Rx for [place] and Zofran provided with dosing instructions reviewed for symptomatic control. He is advised to take the [place] sparingly when his pain is the most severe and to otherwise have close follow-up with his primary care provider and [facility]. Undiagnosed new problem with uncertain prognosis? @ -None Drug Therapy requiring intensive monitoring for toxicity (Heparin, Nitro, Insulin, Cardizem)? @ -None Were any procedures done? @ -None Diagnosis/symptom? @ -Abdominal pain Acute, or Chronic, or Acute on Chronic? @ -Acute Uncomplicated (without systemic symptoms) or Complicated (systemic symptoms)? @ -Uncomplicated Side effects of treatment? @ -None Exacerbation, Progression, or Severe Exacerbation] @ -Not applicable Poses a threat to life or bodily function? @ -No Return precautions reviewed in depth, the patient is instructed to return to the emergency department with any new, worsening, or concerning symptoms. Patient verbalized understanding. This case was discussed in detail with the attending ED physician, Dr. Robertson. Presentation, findings, and treatment plan discussed in detail as well. - Lab Data Result diagrams: 02/05/23 16:33 02/05/23 16:33 Lab Results 02/05/23 02/05/23 02/05/23 Range/Units 16:33 16:33 16:33 WBC 5.3 (3.8-10.6) k/uL RBC 5.70 (4.30-5.90) m/uL Hgb 16.0 (13.0-17.5) gm/dL Hct 52.0 (39.0-53.0) % MCV 91.2 (80.0-100.0) fL MCH 28.1 (25.0-35.0) pg MCHC 30.8 L (31.0-37.0) g/dL RDW 14.0 (11.5-15.5) % Plt Count 170 (150-450) k/uL MPV 8.1 Neutrophils % 65 % Lymphocytes % 22 % Monocytes % 7 % Eosinophils % 5 % Basophils % 0 % Neutrophils # 3.4 (1.3-7.7) k/uL Lymphocytes # 1.1 (1.0-4.8) k/uL Monocytes # 0.4 (0-1.0) k/uL Eosinophils # 0.2 (0-0.7) k/uL Basophils # 0.0 (0-0.2) k/uL Hypochromasia Slight Sodium 140 (137-145) mmol/L Potassium 4.7 (3.5-5.1) mmol/L Chloride 108 H (98-107) mmol/L Carbon Dioxide 23 (22-30) mmol/L Anion Gap 9 mmol/L BUN 37 H (9-20) mg/dL Creatinine 2.02 H (0.66-1.25) mg/dL Est GFR (CKD-EPI)AfAm 47 (>60 ml/min/1.73 sqM) Est GFR (CKD-EPI)NonAf 41 (>60 ml/min/1.73 sqM) Glucose 98 (74-99) mg/dL Plasma Lactic Acid Niko 1.0 (0.7-2.0) mmol/L Calcium 9.8 (8.4-10.2) mg/dL Total Bilirubin 0.5 (0.2-1.3) mg/dL AST 34 (17-59) U/L ALT 28 (4-49) U/L Alkaline Phosphatase 114 (38-126) U/L Total Protein 7.5 (6.3-8.2) g/dL Albumin 4.3 (3.5-5.0) g/dL Amylase 98 (30-110) U/L Lipase 206 (23-300) U/L Disposition Clinical Impression: Abdominal pain Disposition: HOME SELF-CARE Instructions (If sedation given, give patient instructions): Abdominal Pain (ED) Additional Instructions: Return to the emergency department with any new, worsening, or concerning symptoms. Take Tylenol as needed for pain relief. Take the [place] sparingly when your pain is the most severe. You can take the Zofran up to every 8 hours as needed for nausea and vomiting. Follow up with your primary care provider in 1-2 days. Prescriptions: HYDROcodone/APAP 7.5-325MG [[place] 7.5-325] 1 tab PO Q6HR PRN 3 Days #12 tab PRN Reason: Pain Ondansetron Odt [Zofran Odt] 4 mg PO Q8HR PRN #20 tab PRN Reason: Nausea And Vomiting Is patient prescribed a controlled substance at d/c from ED?: Yes When asked, does pt state using other controlled substances?: No If prescribed controlled substance>3 days was MAPS reviewed?: Prescribed <3 Days Referrals: Maksim Schultz MD [Primary Care Provider] - 1-2 days
[2023-02-05 17:07] LABS: Basophils % (A) 0 %; Eosinophils # (A) 0.2 k/uL (0-0.7); Eosinophils % (A) 5 %; Hypochromasia Slight; Lymphocytes # (A) 1.1 k/uL (1.0-4.8); Lymphocytes % (A) 22 %; MCH 28.1 pg (25.0-35.0); MCHC 30.8 g/dL (31.0-37.0); MCV 91.2 fL (80.0-100.0); Mean Platelet Volume 8.1; Monocytes # (A) 0.4 k/uL (0-1.0); Monocytes % (A) 7 %; Neutrophils # (A) 3.4 k/uL (1.3-7.7); Neutrophils % (A) 65 %; Platelet Count 170 k/uL (150-450); WBC 5.3 k/uL (3.8-10.6)
[2023-02-05 17:32] LABS: ALT 28 U/L (4-49); AST 34 U/L (17-59); African American GFR (CKD) 47 (>60 ml/min/1.73 sqM); Albumin 4.3 g/dL (3.5-5.0); Alkaline Phosphatase 114 U/L (38-126); Amylase 98 U/L (30-110); Anion Gap 9 mmol/L; Blood Urea Nitrogen 37 mg/dL (9-20); Calcium 9.8 mg/dL (8.4-10.2); Carbon Dioxide 23 mmol/L (22-30); Chloride 108 mmol/L (98-107); Glucose 98 mg/dL (74-99); Lipase 206 U/L (23-300); Non-African American GFR(CKD) 41 (>60 ml/min/1.73 sqM); Potassium 4.7 mmol/L (3.5-5.1); Sodium 140 mmol/L (137-145); Total Bilirubin 0.5 mg/dL (0.2-1.3); Total Protein 7.5 g/dL (6.3-8.2)
[2023-02-05] MEDS ORDERED: SODIUM CHLORIDE 0.9% 1,000 ML IV STA (17:36)
[2023-02-05 18:13] VITALS: BP 134/81; PULSE 105; RESP 18
[2023-02-05 18:51] VITALS: TEMP 98.5
== END 2023-02-05 18:51 | disposition home or self-care (01) ==
LOC: EC 15:21
DX: R10.13 Epigastric pain (principal); I10 Essential (primary) hypertension; F90.9 Attention-deficit hyperactivity disorder, unspecified type; F17.290 Nicotine dependence, other tobacco product, uncomplicated; Z79.899 Other long term (current) drug therapy
CPT/HCPCS: 36415; 80053; 82150; 83605; 83690; 85025; 99284; 96374; 96375; 96376; 96361; J2405; J1170

== ENCOUNTER 2023-02-06 15:40 | Observation (INO) | payer OTHER ==
[2023-02-06 18:17] LABS: Basophils % (A) 0 %; Eosinophils # (A) 0.2 k/uL (0-0.7); Eosinophils % (A) 2 %; HCT 51.4 % (39.0-53.0); HGB 16.1 gm/dL (13.0-17.5); Hypochromasia Slight; Lymphocytes # (A) 1.4 k/uL (1.0-4.8); Lymphocytes % (A) 20 %; MCH 28.6 pg (25.0-35.0); MCHC 31.2 g/dL (31.0-37.0); MCV 91.6 fL (80.0-100.0); Mean Platelet Volume 7.6; Monocytes # (A) 0.5 k/uL (0-1.0); Monocytes % (A) 7 %; Neutrophils % (A) 69 %; Platelet Count 200 k/uL (150-450); RBC 5.61 m/uL (4.30-5.90); WBC 7.3 k/uL (3.8-10.6)
[2023-02-06] MEDS ORDERED: ONDANSETRON 4 MG/2 ML VIAL IVP STA (18:25)
[2023-02-06] MEDS ORDERED: KETOROLAC 15 MG/ML 1 ML VIAL IVP STA (18:25)
[2023-02-06 18:41] LABS: ALT 31 U/L (4-49); AST 41 U/L (17-59); African American GFR (CKD) 41 (>60 ml/min/1.73 sqM); Albumin 4.8 g/dL (3.5-5.0); Alkaline Phosphatase 102 U/L (38-126); Amylase 84 U/L (30-110); Anion Gap 10 mmol/L; Blood Urea Nitrogen 27 mg/dL (9-20); Calcium 10.1 mg/dL (8.4-10.2); Carbon Dioxide 26 mmol/L (22-30); Chloride 104 mmol/L (98-107); Glucose 76 mg/dL (74-99); Lipase 69 U/L (23-300); Non-African American GFR(CKD) 35 (>60 ml/min/1.73 sqM); Potassium 4.6 mmol/L (3.5-5.1); Sodium 140 mmol/L (137-145); Total Bilirubin 0.7 mg/dL (0.2-1.3); Total Protein 8.6 g/dL (6.3-8.2)
[2023-02-06 19:22] LABS: Appearance,Urine Clear (Clear); Bilirubin,Urine Negative (Negative); Blood,Urine Negative (Negative); Color,Urine Colorless; Glucose,Urine (UA) 3+ (Negative); Ketones,Urine Negative (Negative); Leukocyte Esterase,Urine Negative (Negative); Nitrite,Urine Negative (Negative); PH, Urine 6.5 (5.0-8.0); Protein,Urine 2+ (Negative); Specific Gravity,Urine 1.013 (1.001-1.035); Urobilinogen,Urine <2.0 mg/dL (<2.0); WBC,Urine <1 /hpf (0-5)
--- NOTE | 2023-02-06 19:37 | ED ---
General Adult HPI - General Chief complaint: Abdominal Pain Stated complaint: pancreatitis-vomiting Time Seen by Provider: 02/06/23 17:43 Source: patient Mode of arrival: ambulatory Limitations: no limitations - History of Present Illness Initial comments: 37-year-old male presents emergency department chief complaint of abdominal pain. He reports that this is mostly in the right upper quadrant but also extends throughout most of his abdomen. He states that his been going on for around 4 days. He was seen yesterday for the same thing but states that the pain is worse today. He also reports vomiting today that was not present yesterday. He does have history of pancreatitis. Reports a prior PEG tube but no other abdominal surgeries. - Related Data Home Medications Medication Instructions Recorded Confirmed QUEtiapine [SEROquel] 50 mg PO HS 09/08/19 02/06/23 Dextroamphetamine/Amphetamine 30 mg PO BID 07/16/22 02/06/23 [Adderall] Sodium Bicarbonate 650 mg PO BID 07/16/22 02/06/23 calcitrioL [Calcitriol] 0.25 mcg PO MOTH 07/16/22 02/06/23 Dapagliflozin Propanediol [Farxiga] 5 mg PO DAILY 08/14/22 02/06/23 Ergocalciferol [Vitamin D2 (1250 1,250 mcg PO Q30D 08/14/22 02/06/23 Mcg = 48336 Iu)] Losartan Potassium 50 mg PO DAILY 08/14/22 02/06/23 Sildenafil Citrate 100 mg PO DAILY PRN 01/05/23 02/06/23 Previous Rx's Medication Instructions Recorded HYDROcodone/APAP 7.5-325MG [[place] 1 tab PO Q6HR PRN 3 Days #12 tab 02/05/23 7.5-325] Ondansetron Odt [Zofran Odt] 4 mg PO Q8HR PRN #20 tab 02/05/23 Allergies Allergy/AdvReac Type Severity Reaction Status Date / Time No Known Allergies Allergy Verified 02/06/23 21:18 Review of Systems ROS Statement: Those systems with pertinent positive or pertinent negative responses have been documented in the HPI. ROS Other: All systems not noted in ROS Statement are negative. 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 "I was in a coma for 3 months" History of Any Multi-Drug Resistant Organisms: None Reported Past Surgical History: No Surgical Hx Reported Additional Past Surgical History / Comment(s): tracheotomy, PEG tube placement, stent in gall bladder, L arm fistula Past Anesthesia/Blood Transfusion Reactions: No Reported Reaction Past Psychological History: ADD/ADHD Smoking Status: Vaper Past Alcohol Use History: None Reported Past Drug Use History: None Reported - Past Family History Father Family Medical History: No Reported History Additional Family Medical History / Comment(s): Father is a heroin addict now on methadone. Mother Family Medical History: Hypertension General Exam Limitations: no limitations General appearance: alert, in no apparent distress Head exam: Present: atraumatic, normocephalic, normal inspection Eye exam: Present: normal appearance, PERRL, EOMI. Absent: scleral icterus, conjunctival injection, periorbital swelling ENT exam: Present: normal exam, mucous membranes moist Neck exam: Present: normal inspection. Absent: tenderness, meningismus, lymphadenopathy Respiratory exam: Present: normal lung sounds bilaterally. Absent: respiratory distress, wheezes, rales, rhonchi, stridor Cardiovascular Exam: Present: regular rate, normal rhythm, normal heart sounds. Absent: systolic murmur, diastolic murmur, rubs, gallop, clicks GI/Abdominal exam: Present: tenderness, hypoactive bowel sounds. Absent: distended, guarding, rebound, rigid Extremities exam: Present: normal inspection, full ROM, normal capillary refill. Absent: tenderness, pedal edema, joint swelling, calf tenderness Back exam: Present: normal inspection Neurological exam: Present: alert, oriented X3 Psychiatric exam: Present: normal affect, normal mood Skin exam: Present: warm, dry, intact, normal color. Absent: rash Course Vital Signs 02/06/23 02/06/23 02/06/23 16:41 17:43 19:17 Temperature 98.6 F 98.4 F Pulse Rate 96 94 Respiratory 22 18 18 Rate Blood Pressure 133/82 164/84 O2 Sat by Pulse 99 98 Oximetry 02/06/23 02/06/23 20:20 22:00 Temperature 97.9 F Pulse Rate 88 88 Respiratory 16 16 Rate Blood Pressure 160/92 152/88 O2 Sat by Pulse 98 99 Oximetry Medical Decision Making - Medical Decision Making Was pt. sent in by a medical professional or institution (MARIA TERESA Mcfarland, [employer], urgent care, hospital, or assisted...) When possible be specific @ -No Did you speak to anyone other than the patient for history (EMS, parent, family, police, friend...)? What history was obtained from this source @ -No Did you review nursing and triage notes (agree or disagree)? Why? @ -I reviewed and agree with nursing and triage notes Were old charts reviewed (outside hosp., previous admission, EMS record, old EKG, old radiological studies, urgent care reports/EKG's, assisted records)? Report findings @ -No old charts were reviewed Differential Diagnosis (chest pain, altered mental status, abdominal pain women, abdominal pain men, vaginal bleeding, weakness, fever, dyspnea, syncope, headache, dizziness, GI bleed, back pain, seizure, CVA, palpatations, mental health, musculoskeletal)? @ -nDifferential Abdominal Pain Men: Appendicitis, cholecystitis, diverticulosis, ischemic bowel, pancreatitis, hepatitis, UTI, gastroenteritis, AAA, incarcerated hernia, bowel obstruction, constipation, inflammatory bowel, hepatitis, peptic ulcer disease, splenic infarction, perforated viscus, testicular torsion, this is not meant to be an all-inclusive list EKG interpreted by me (3pts min.). @ -None X-rays interpreted by me (1pt min.). @ -None done CT interpreted by me (1pt min.). @ -None done U/S interpreted by me (1pt. min.). @ -Gallbladder ultrasound obtained which shows normal RUQ What testing was considered but not performed or refused? (CT, X-rays, U/S, labs)? Why? @ -None What meds were considered but not given or refused? Why? @ -None Did you discuss the management of the patient with other professionals (professionals i.e. MARIA TERESA Mcfarland, [employer], lab, RT, psych nurse, social services aide, shop cooper, teacher, defence force senior officer, case filler)? Give summary @ -Management discussed with Dr. Maksim Schultz who is accepting the admission for pain management and IV fluids Was smoking cessation discussed for >3mins.? @ -No Was critical care preformed (if so, how long)? @ -No Were there social determinants of health that impacted care today? How? (Rahul elessness, low income, unemployed, alcoholism, drug addiction, transportation, low edu. Level, literacy, decrease access to med. care, retirement, rehab)? @ -No Was there de-escalation of care discussed even if they declined (Discuss DNR or withdrawal of care, Hospice)? DNR status @ -No What co-morbidities impacted this encounter? (DM, HTN, Smoking, COPD, CAD, Cancer, CVA, ARF, Chemo, Hep., AIDS, mental health diagnosis, sleep apnea, morbid obesity)? @ -None Was patient admitted / discharged? Hospital course, mention meds given and route, prescriptions, significant lab abnormalities, going to OR and other pertinent info. @ -Admitted. Patient presented to emergency department chief complaint of abdominal pain 4 days. He is evaluated in the emergency department yesterday for this same issue but continues to have pain. CBC and CMP obtained today. CBC within normal limits. CMP showed creatinine 2.28 which is slightly bumped from yesterday which was 2.02. UA showed 3+ glucose, 2+ protein. Patient given Toradol, Zofran for pain. He continued to have pain following this. Patient was given morphine and his pain was still 7 out of 10. Ultrasound obtained showed no acute abnormality of the right upper quadrant. Case discussed with Dr. Maksim Schultz the patient's PCP who is accepting of the admission for pain management and IV fluids. Patient stable at time of admission. Case discussed with my attending, Dr. Levin. Undiagnosed new problem with uncertain prognosis? @ -No Drug Therapy requiring intensive monitoring for toxicity (Heparin, Nitro, Insulin, Cardizem)? @ -No Were any procedures done? @ -No Diagnosis/symptom? @ -intractable abdominal pain Acute, or Chronic, or Acute on Chronic? @ -acute Uncomplicated (without systemic symptoms) or Complicated (systemic symptoms)? @ -Uncomplicated Side effects of treatment? @ -No Exacerbation, Progression, or Severe Exacerbation? @ -No Poses a threat to life or bodily function? How? (Chest pain, USA, OR, pneumonia, PE, COPD, DKA, ARF, appy, cholecystitis, CVA, Diverticulitis, Homicidal, Suicidal, threat to staff... and all critical care pts) @ -No - Lab Data Result diagrams: 02/06/23 18:09 02/06/23 18:09 Lab Results 02/06/23 02/06/23 02/06/23 Range/Units 18:09 18:09 18:09 WBC 7.3 (3.8-10.6) k/uL RBC 5.61 (4.30-5.90) m/uL Hgb 16.1 (13.0-17.5) gm/dL Hct 51.4 (39.0-53.0) % MCV 91.6 (80.0-100.0) fL MCH 28.6 (25.0-35.0) pg MCHC 31.2 (31.0-37.0) g/dL RDW 14.0 (11.5-15.5) % Plt Count 200 (150-450) k/uL MPV 7.6 Neutrophils % 69 % Lymphocytes % 20 % Monocytes % 7 % Eosinophils % 2 % Basophils % 0 % Neutrophils # 5.0 (1.3-7.7) k/uL Lymphocytes # 1.4 (1.0-4.8) k/uL Monocytes # 0.5 (0-1.0) k/uL Eosinophils # 0.2 (0-0.7) k/uL Basophils # 0.0 (0-0.2) k/uL Hypochromasia Slight Sodium 140 (137-145) mmol/L Potassium 4.6 (3.5-5.1) mmol/L Chloride 104 (98-107) mmol/L Carbon Dioxide 26 (22-30) mmol/L Anion Gap 10 mmol/L BUN 27 H (9-20) mg/dL Creatinine 2.28 H (0.66-1.25) mg/dL Est GFR (CKD-EPI)AfAm 41 (>60 ml/min/1.73 sqM) Est GFR (CKD-EPI)NonAf 35 (>60 ml/min/1.73 sqM) Glucose 76 (74-99) mg/dL Plasma Lactic Acid Niko 1.0 (0.7-2.0) mmol/L Calcium 10.1 (8.4-10.2) mg/dL Total Bilirubin 0.7 (0.2-1.3) mg/dL AST 41 (17-59) U/L ALT 31 (4-49) U/L Alkaline Phosphatase 102 (38-126) U/L Total Protein 8.6 H (6.3-8.2) g/dL Albumin 4.8 (3.5-5.0) g/dL Amylase 84 (30-110) U/L Lipase 69 (23-300) U/L Urine Color Urine Appearance (Clear) Urine pH (5.0-8.0) Ur Specific [place] (1.001-1.035) Urine Protein (Negative) Urine Glucose (UA) (Negative) Urine Ketones (Negative) Urine Blood (Negative) Urine Nitrite (Negative) Urine Bilirubin (Negative) Urine Urobilinogen (<2.0) mg/dL Ur Leukocyte Esterase (Negative) Urine WBC (0-5) /hpf 02/06/23 Range/Units 19:13 WBC (3.8-10.6) k/uL RBC (4.30-5.90) m/uL Hgb (13.0-17.5) gm/dL Hct (39.0-53.0) % MCV (80.0-100.0) fL MCH (25.0-35.0) pg MCHC (31.0-37.0) g/dL RDW (11.5-15.5) % Plt Count (150-450) k/uL MPV Neutrophils % % Lymphocytes % % Monocytes % % Eosinophils % % Basophils % % Neutrophils # (1.3-7.7) k/uL Lymphocytes # (1.0-4.8) k/uL Monocytes # (0-1.0) k/uL Eosinophils # (0-0.7) k/uL Basophils # (0-0.2) k/uL Hypochromasia Sodium (137-145) mmol/L Potassium (3.5-5.1) mmol/L Chloride (98-107) mmol/L Carbon Dioxide (22-30) mmol/L Anion Gap mmol/L BUN (9-20) mg/dL Creatinine (0.66-1.25) mg/dL Est GFR (CKD-EPI)AfAm (>60 ml/min/1.73 sqM) Est GFR (CKD-EPI)NonAf (>60 ml/min/1.73 sqM) Glucose (74-99) mg/dL Plasma Lactic Acid Niko (0.7-2.0) mmol/L Calcium (8.4-10.2) mg/dL Total Bilirubin (0.2-1.3) mg/dL AST (17-59) U/L ALT (4-49) U/L Alkaline Phosphatase (38-126) U/L Total Protein (6.3-8.2) g/dL Albumin (3.5-5.0) g/dL Amylase (30-110) U/L Lipase (23-300) U/L Urine Color Colorless Urine Appearance Clear (Clear) Urine pH 6.5 (5.0-8.0) Ur Specific [place] 1.013 (1.001-1.035) Urine Protein 2+ H (Negative) Urine Glucose (UA) 3+ H (Negative) Urine Ketones Negative (Negative) Urine Blood Negative (Negative) Urine Nitrite Negative (Negative) Urine Bilirubin Negative (Negative) Urine Urobilinogen <2.0 (<2.0) mg/dL Ur Leukocyte Esterase Negative (Negative) Urine WBC <1 (0-5) /hpf Disposition Clinical Impression: Intractable abdominal pain Disposition: ADMITTED IP TO THIS [facility] Condition: Stable Is patient prescribed a controlled substance at d/c from ED?: No
[2023-02-06] MEDS ORDERED: MORPHINE SULFATE 4 MG/ML SYRINGE IVP STA (19:48)
--- NOTE | 2023-02-06 20:45 | US ---
EXAMINATION TYPE: US gallbladder DATE OF EXAM: 02/06/2023 COMPARISON: CLINICAL INDICATION: Male, 37 years old with history of RUQ pain; HX gb stent. Pain. TECHNIQUE: Multiple sonographic images of the right upper quadrant are obtained. FINDINGS: EXAM MEASUREMENTS: Liver Length: 13.6 cm Gallbladder Wall: 0.2 cm Right Kidney: 8.3 x 3.9 x 4.6 cm SPEECH THERAPIST NOTES:Extremely limited exam due to patient pain Pancreas: Obscured by bowel gas Liver: Limited visualization, no prominent abnormality seen Gallbladder: Stent visualized, limited visualization Evidence for sonographic Erazo's sign: neg CBD: Obscured by overlying bowel gas Right Kidney: Appears small in size IMPRESSION: 1. No acute ultrasound abnormality right upper quadrant. There is some limitation due to body habitus .
[2023-02-06] MEDS ORDERED: ACETAMINOPHEN TAB 325 MG TAB PO PRN (21:05)
[2023-02-06] MEDS ORDERED: HYDROmorphone 1 MG/ML 1 ML SYRINGE IVP PRN (21:05)
[2023-02-06] MEDS ORDERED: NALOXONE 0.4 MG/ML 1 ML VIAL IV PRN (21:05)
[2023-02-06] MEDS ORDERED: KETOROLAC 15 MG/ML 1 ML VIAL IVP PRN (21:05)
[2023-02-06] MEDS ORDERED: SODIUM CHLORIDE 0.9% 1,000 ML IV ONE (21:14)
[2023-02-06] MEDS: SODIUM CHLORIDE 0.9% 1,000 ML IV SCH (21:25)
[2023-02-06] MEDS ORDERED: NON FORMULARY DRUG (Sildenafil Citrate [Sildenafil Citrate] 100 MG Tablet) PO PRN (23:10)
[2023-02-06] MEDS: QUEtiapine 50 MG TAB PO SCH (23:23)
[2023-02-06] MEDS: HYDROmorphone 0.5 MG/0.5 ML SYRINGE IVP PRN (23:24)
[2023-02-07] MEDS: HYDROmorphone 0.5 MG/0.5 ML SYRINGE IVP PRN ×7 (02:46→21:33)
[2023-02-07] MEDS: SODIUM CHLORIDE 0.9% 1,000 ML IV SCH ×4 (06:31→22:57)
[2023-02-07] MEDS: NON FORMULARY DRUG (Dextroamphetamine/Amphetamine [Adderall] 30 MG Tablet) PO SCH ×2 (08:11→20:38)
[2023-02-07] MEDS: LOSARTAN 50 MG TAB PO SCH (08:14)
[2023-02-07] MEDS: DAPAGLIFLOZIN PROPANEDIOL 5 MG TABLET PO SCH (08:14)
[2023-02-07] MEDS: SODIUM BICARBONATE TAB 650 MG TAB PO SCH ×2 (08:15→21:33)
[2023-02-07] MEDS: HYDROcodone/APAP 7.5-325MG 1 EACH TAB PO PRN (08:15)
[2023-02-07] MEDS: ONDANSETRON 4 MG/2 ML VIAL IVP PRN ×2 (12:13→21:38)
--- NOTE | 2023-02-07 13:40 | HP ---
HISTORY AND PHYSICAL HISTORY OF PRESENT ILLNESS: This 37-year-old white male came to emergency room for abdominal pain, mostly his right upper quadrant to his abdomen. He is supposed to go down to see his GI doctor for his GI stent in the last month, not sure if he went today, but he came back with worsening pain and some vomiting today, was not present yesterday. He has a history of pancreatitis, pancreatic stent. He had an abnormal HIDA scan a few months ago. He is supposed to go see the GI doctor down in the city, I do not know that he went. HOME MEDICINES: 1. Seroquel 50 at night. 2. Adderall 30 b.i.d. 3. Sodium bicarb 650 b.i.d. 4. Calcitriol 0.25 on . 5. Farxiga 5 mg daily. 6. Losartan 50 daily. 7. Sildenafil 100 daily. ALLERGIES: No known drug allergies. PAST MEDICAL HISTORY: End-stage renal disease, hypertension, liver disease, pneumonia, renal disease, alcoholic hepatitis, alcohol disease, and history of hepatitis C. SURGICAL HISTORY: Tracheotomy, PEG tube placement, stent in the gallbladder, left arm fistula, ADHD, and ADD. FAMILY HISTORY: Father is a heroin addict and methadone. Mother, hypertension. PHYSICAL EXAMINATION: VITAL SIGNS: Temp 98.6, pulse 94 to 96, respiratory rate 18 to 22, blood pressure is 130s to 160s over 80s to 90s, O2 99 within normal limits. CARDIOVASCULAR, S1, S2. LUNGS: Transmitted upper sounds. GI: Tense to palpation right upper quadrant. HEMATOLOGY: Negative for Homans. PSYCH: Fair mood and affect. NEUROLOGIC: Alert and oriented x3. HEENT: Pupils equal, round, and reactive. NEUROLOGIC: Cranial nerves intact. Prognosis guarded. Please see further orders. We will get a possible HIDA scan again, possibly surgical consult to see what they recommend. Possibly transfer down to the city to his GI doctor with abnormalities with his gallbladder stent. Prognosis guarded. MMODL / IJN: [id number] /
[2023-02-07 14:16] LABS: Amylase 139 U/L (30-110); Lipase 446 U/L (23-300)
[2023-02-07] MEDS: QUEtiapine 50 MG TAB PO SCH (21:33)
[2023-02-08] MEDS: HYDROmorphone 0.5 MG/0.5 ML SYRINGE IVP PRN ×8 (00:25→23:30)
[2023-02-08] MEDS: NON FORMULARY DRUG (Dextroamphetamine/Amphetamine [Adderall] 30 MG Tablet) PO SCH ×2 (07:39→20:39)
[2023-02-08] MEDS: SODIUM BICARBONATE TAB 650 MG TAB PO SCH ×2 (08:02→20:19)
[2023-02-08] MEDS: LOSARTAN 50 MG TAB PO SCH (08:03)
[2023-02-08] MEDS: DAPAGLIFLOZIN PROPANEDIOL 5 MG TABLET PO SCH (08:03)
[2023-02-08 09:28] LABS: Basophils # (A) 0.02 X 10*3/uL (0.00-0.10); Basophils % (A) 0.4 %; Eosinophils # (A) 0.24 X 10*3/uL (0.04-0.35); Eosinophils % (A) 5.4 %; HCT 47.8 % (39.6-50.0); HGB 14.7 d/dL (13.0-17.0); Lymphocytes % (A) 26.8 %; MCH 28.1 pg (27.0-32.0); MCHC 30.8 d/dL (32.0-37.0); MCV 91.4 FL (80.0-97.0); Mean Platelet Volume 10.3 FL (9.5-12.2); Monocytes # (A) 0.47 X 10*3/uL (0.20-1.00); Monocytes % (A) 10.5 %; NRBC Per 100 WBC 0 X 10*3/uL (0.00-0.01); Neutrophils # (A) 2.53 X 10*3/uL (1.80-7.70); Neutrophils % (A) 56.7 %; Platelet Count 158 X 10*3/uL (140-440); RBC 5.23 X 10*6/uL (4.40-5.60); RDW 13.9 % (11.5-14.5); WBC 4.47 X 10*3/uL (4.50-10.00)
[2023-02-08 09:38] LABS: ALT 37 U/L (10-49); AST 34 U/L (14-35); Albumin/Globulin Ratio 1.82 Ratio (1.60-3.17); Alkaline Phosphatase 97 U/L (41-126); Blood Urea Nitrogen 26.2 mg/dL (9.0-27.0); Calcium 9.1 mg/dL (8.7-10.3); Carbon Dioxide 23.4 mmol/L (21.6-31.8); Chloride 111 mmol/L (96-109); Globulin 2.2 d/dL (1.6-3.3); Glucose 84 mg/dL (70-110); Potassium 4.6 mmol/L (3.5-5.5); Sodium 143 mmol/L (135-145); Total Bilirubin 0.5 mg/dL (0.3-1.2); Total Protein 6.2 d/dL (6.2-8.2)
[2023-02-08] MEDS: HYDROcodone/APAP 7.5-325MG 1 EACH TAB PO PRN ×2 (09:55→21:06)
[2023-02-08] MEDS: SODIUM CHLORIDE 0.9% 1,000 ML IV SCH ×2 (11:02→23:30)
[2023-02-08] MEDS: ALPRAZolam 0.5 MG TAB PO PRN ×2 (12:55→21:06)
[2023-02-08] MEDS: MORPHINE SULFATE 4 MG/ML SYRINGE IV PRN ×2 (14:34→21:06)
[2023-02-08 14:51] LABS: Amylase 153 U/L (30-110); Lipase 457 U/L (23-300)
[2023-02-08] MEDS: QUEtiapine 50 MG TAB PO SCH (20:19)
[2023-02-09] MEDS: HYDROcodone/APAP 7.5-325MG 1 EACH TAB PO PRN ×2 (03:13→18:07)
[2023-02-09] MEDS: MORPHINE SULFATE 4 MG/ML SYRINGE IV PRN ×4 (03:13→20:13)
[2023-02-09] MEDS: ALPRAZolam 0.5 MG TAB PO PRN ×4 (03:13→23:21)
[2023-02-09] MEDS: HYDROmorphone 0.5 MG/0.5 ML SYRINGE IVP PRN ×6 (04:23→23:22)
--- NOTE | 2023-02-09 04:43 | PN ---
PROGRESS NOTE The patient was seen. He had a gallbladder ultrasound. He is waiting a HIDA scan. Possibly, we will have to transfer down to the city if he still has difficulties tomorrow. His creatinine is 2.0, BUN is 26, GFR is 43, which is improved from 35 on admission. Waiting for surgical recommendations. He has elevated amylase and lipase for pancreatitis, so a HIDA scan. Possibly I think the patient wants his gallbladder out. He says the specialist with his bile duct stents recommends a cholecystectomy. Hopefully, surgeon here can do cholecystectomy, so if he wants us to transfer him otherwise, possibly transfer him. Prognosis Guarded. Please see further orders. MMODL / IJN: [id number] /
[2023-02-09] MEDS: SODIUM CHLORIDE 0.9% 1,000 ML IV SCH ×4 (07:34→23:22)
[2023-02-09] MEDS: NON FORMULARY DRUG (Dextroamphetamine/Amphetamine [Adderall] 30 MG Tablet) PO SCH ×2 (07:35→20:13)
[2023-02-09 08:38] LABS: Basophils # (A) 0.02 X 10*3/uL (0.00-0.10); Basophils % (A) 0.5 %; Eosinophils # (A) 0.19 X 10*3/uL (0.04-0.35); Eosinophils % (A) 4.8 %; HCT 46.4 % (39.6-50.0); HGB 13.7 d/dL (13.0-17.0); Lymphocytes # (A) 1.18 X 10*3/uL (0.90-5.00); Lymphocytes % (A) 29.6 %; MCH 27.6 pg (27.0-32.0); MCHC 29.5 d/dL (32.0-37.0); MCV 93.4 FL (80.0-97.0); Mean Platelet Volume 10.5 FL (9.5-12.2); Monocytes # (A) 0.49 X 10*3/uL (0.20-1.00); Monocytes % (A) 12.3 %; NRBC Per 100 WBC 0 X 10*3/uL (0.00-0.01); Neutrophils # (A) 2.09 X 10*3/uL (1.80-7.70); Neutrophils % (A) 52.5 %; Platelet Count 126 X 10*3/uL (140-440); RBC 4.97 X 10*6/uL (4.40-5.60); RDW 13.6 % (11.5-14.5); WBC 3.98 X 10*3/uL (4.50-10.00)
[2023-02-09 08:52] LABS: ALT 29 U/L (10-49); AST 29 U/L (14-35); Albumin 3.7 d/dL (3.8-4.9); Albumin/Globulin Ratio 1.68 Ratio (1.60-3.17); Alkaline Phosphatase 105 U/L (41-126); BUN/Creat Ratio 14.39 Ratio (12.00-20.00); Blood Urea Nitrogen 25.9 mg/dL (9.0-27.0); Calcium 8.3 mg/dL (8.7-10.3); Carbon Dioxide 22.1 mmol/L (21.6-31.8); Chloride 110 mmol/L (96-109); Globulin 2.2 d/dL (1.6-3.3); Glucose 100 mg/dL (70-110); Potassium 4.6 mmol/L (3.5-5.5); Sodium 141 mmol/L (135-145); Total Bilirubin <0.2 mg/dL (0.3-1.2); Total Protein 5.9 d/dL (6.2-8.2)
[2023-02-09] MEDS: LOSARTAN 50 MG TAB PO SCH (09:44)
[2023-02-09] MEDS: SODIUM BICARBONATE TAB 650 MG TAB PO SCH ×2 (09:44→20:13)
[2023-02-09] MEDS: DAPAGLIFLOZIN PROPANEDIOL 5 MG TABLET PO SCH (09:44)
--- NOTE | 2023-02-09 13:37 | P.GSCN ---
History of Present Illness Consult date: 02/09/23 History of present illness: CHIEF COMPLAINT: Abdominal pain HISTORY OF PRESENT ILLNESS: This is a 37-year-old male who presented to the hospital with complaints of right upper quadrant abdominal pain 1 week. Patient reports that about 3 weeks ago he was hospitalized with pancreatitis. Patient also has a history of biliary stent that was placed in 2019 at [facility] and did need to be replaced in 2020. Patient reports biliary stent was placed due to having multiorgan failure at the time and cholecystitis. Patient reports that it is been since 2016 since any drug use. And he hasn't had any alcoholic beverages since 2019. Patient does follow-up with a school photographs detailer out of [facility] and is scheduled to see a surgeon out of [facility] on 920 regarding his gallbladder. Patient has been having nausea and vomiting. The vomiting has shown improvements. Gallbladder ultrasound shows no evidence of acute cholecystitis and the stent was visualized. HIDA scan from 01/15/2023 shows nonvisualization of the gallbladder this could be related to drainage biliary catheter. Surgical service consulted regarding the abnormal HIDA scan and possibility of gallbladder removal. PAST MEDICAL HISTORY: See below. History of renal disease requiring course of dialysis. No longer requiring dialysis. History of renal failure and liver failure, alcohol pancreatitis , ETOH abuse, alcoholic hepatitis, 02/05/17 serology lab +for hepatitis C but pt unaware, B12 deficiency, hx of IVDA-heroin but none for almost 3 yrs, On dialysis over 1 year. "I was in a coma for 3 months" PAST SURGICAL HISTORY: See below. PEG tube placement and tracheostomy placement. Both removed. Left arm fistula. Stent in gallbladder. MEDICATIONS: See below ALLERGIES: See below SOCIAL HISTORY: No illicit drug use. REVIEW OF SYSTEMS: CONSTITUTIONAL: Denies fever or chills. HEENT: Denies blurred vision, vision changes, or eye pain. Denies hemoptysis CARDIOVASCULAR: Denies chest pain or pressure. RESPIRATORY: No shortness of breath. GASTROINTESTINAL: See HPI for pertinent findings HEMATOLOGIC: Denies bleeding disorders. GENITOURINARY: Denies any blood in urine or increased urinary frequency. SKIN: Denies pruitis. Denies rash. PHYSICAL EXAM: VITAL SIGNS: Reviewed GENERAL: Well-developed in no acute distress. HEENT: No sclera icterus. Extraocular movements grossly intact. Moist buccal mucosa. Head is atraumatic, normocephalic. No nasal drainage. ABDOMEN: Soft. Nondistended. Tenderness to palpation of the right upper quadrant. Some mild diffuse tenderness in the lower abdomen. NEUROLOGIC: Alert and oriented. Cranial nerves II through XII grossly intact. LABORATORY DATA: WBC 3.98 Hgb 13.7 platelets 126 Sodium 141 potassium is 4.6 creatinine 1.8 Lipase 457 IMAGING: Gallbladder ultrasound no acute ultrasound abnormality of the right upper quadrant. There is some limitation due to body habitus. Gallbladder stent visualized. HIDA scan nonvisualization of gallbladder. Finding could be related to drainage biliary catheter which appears to extend the gallbladder fossa to the small bowel on recent computed tomography scan. ASSESSMENT: 1. Right upper quadrant abdominal pain 2. History of biliary stent 3. Complicated medical history PLAN: -Recommend that patient is transferred to [facility] where his school photographs detailer and surgeon are located. Plus that is where he had the biliary stent placed. -Okay to resume a low-fat diet Physician Director Engineering note has been reviewed by physician. Signing provider agrees with the documented findings, assessment, and plan of care. 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 "I was in a coma for 3 months" History of Any Multi-Drug Resistant Organisms: None Reported Past Surgical History: No Surgical Hx Reported Additional Past Surgical History / Comment(s): tracheotomy, PEG tube placement, stent in gall bladder, L arm fistula Past Anesthesia/Blood Transfusion Reactions: No Reported Reaction Past Psychological History: ADD/ADHD Additional Psychological History / Comment(s): Pt resides with his grandparents. He does not drive but states he is able to get rides to appts ec Smoking Status: Vaper Past Alcohol Use History: None Reported Additional Past Alcohol Use History / Comment(s): Pt started smoking in 1998 and is a 0.25 ppd smoker. Past Drug Use History: None Reported Additional Drug Use History / Comment(s): CLEAN FROM HEROIN FOR ALMOST 3.5 YEARS - Past Family History Father Family Medical History: No Reported History Additional Family Medical History / Comment(s): Father is a heroin addict now on methadone. Mother Family Medical History: Hypertension Medications and Allergies Home Medications Medication Instructions Recorded Confirmed Type QUEtiapine [SEROquel] 50 mg PO HS 09/08/19 02/06/23 History Dextroamphetamine/Amphetamine 30 mg PO BID 07/16/22 02/06/23 History [Adderall] Sodium Bicarbonate 650 mg PO BID 07/16/22 02/06/23 History calcitrioL [Calcitriol] 0.25 mcg PO MOTH 07/16/22 02/06/23 History Dapagliflozin Propanediol [Farxiga] 5 mg PO DAILY 08/14/22 02/06/23 History Ergocalciferol [Vitamin D2 (1250 1,250 mcg PO Q30D 08/14/22 02/06/23 History Mcg = 16050 Iu)] Losartan Potassium 50 mg PO DAILY 08/14/22 02/06/23 History Sildenafil Citrate 100 mg PO DAILY PRN 01/05/23 02/06/23 History HYDROcodone/APAP 7.5-325MG [[place] 1 tab PO Q6HR PRN 3 Days #12 tab 02/05/23 02/06/23 Rx 7.5-325] Ondansetron Odt [Zofran Odt] 4 mg PO Q8HR PRN #20 tab 02/05/23 02/06/23 Rx Allergies Allergy/AdvReac Type Severity Reaction Status Date / Time No Known Allergies Allergy Verified 02/06/23 21:18 Surgical - Exam Vital Signs Temp Pulse Resp BP Pulse Ox 98.6 F 96 22 133/82 99 02/06/23 16:41 02/06/23 16:41 02/06/23 16:41 02/06/23 16:41 02/06/23 16:41 Results - Labs 02/09/23 05:43 02/09/23 05:43 Abnormal Lab Results - Last 24 Hours (Table) 02/08/23 02/09/23 02/09/23 Range/Units 14:25 05:43 05:43 WBC 3.98 L (4.50-10.00) X 10*3/uL MCHC 29.5 L (32.0-37.0) d/dL Plt Count 126 L (140-440) X 10*3/uL Chloride 110 H (96-109) mmol/L Creatinine 1.8 H (0.6-1.5) mg/dL Est GFR (CKD-EPI) 49 L (>=60) Calcium 8.3 L (8.7-10.3) mg/dL Total Bilirubin <0.2 L (0.3-1.2) mg/dL Total Protein 5.9 L (6.2-8.2) d/dL Albumin 3.7 L (3.8-4.9) d/dL Amylase 153 H (30-110) U/L Lipase 457 H (23-300) U/L Diabetes panel 02/09/23 Range/Units 05:43 Sodium 141 (135-145) mmol/L Potassium 4.6 (3.5-5.5) mmol/L Chloride 110 H (96-109) mmol/L Carbon Dioxide 22.1 (21.6-31.8) mmol/L BUN 25.9 (9.0-27.0) mg/dL Creatinine 1.8 H (0.6-1.5) mg/dL Glucose 100 (70-110) mg/dL Calcium 8.3 L (8.7-10.3) mg/dL AST 29 (14-35) U/L ALT 29 (10-49) U/L Alkaline Phosphatase 105 (41-126) U/L Total Protein 5.9 L (6.2-8.2) d/dL Albumin 3.7 L (3.8-4.9) d/dL Calcium panel 02/09/23 Range/Units 05:43 Calcium 8.3 L (8.7-10.3) mg/dL Albumin 3.7 L (3.8-4.9) d/dL Pituitary panel 02/09/23 Range/Units 05:43 Sodium 141 (135-145) mmol/L Potassium 4.6 (3.5-5.5) mmol/L Chloride 110 H (96-109) mmol/L Carbon Dioxide 22.1 (21.6-31.8) mmol/L BUN 25.9 (9.0-27.0) mg/dL Creatinine 1.8 H (0.6-1.5) mg/dL Glucose 100 (70-110) mg/dL Calcium 8.3 L (8.7-10.3) mg/dL Adrenal panel 02/09/23 Range/Units 05:43 Sodium 141 (135-145) mmol/L Potassium 4.6 (3.5-5.5) mmol/L Chloride 110 H (96-109) mmol/L Carbon Dioxide 22.1 (21.6-31.8) mmol/L BUN 25.9 (9.0-27.0) mg/dL Creatinine 1.8 H (0.6-1.5) mg/dL Glucose 100 (70-110) mg/dL Calcium 8.3 L (8.7-10.3) mg/dL Total Bilirubin <0.2 L (0.3-1.2) mg/dL AST 29 (14-35) U/L ALT 29 (10-49) U/L Alkaline Phosphatase 105 (41-126) U/L Total Protein 5.9 L (6.2-8.2) d/dL Albumin 3.7 L (3.8-4.9) d/dL
[2023-02-09] MEDS: QUEtiapine 50 MG TAB PO SCH (20:13)
[2023-02-09] MEDS: ONDANSETRON 4 MG/2 ML VIAL IVP PRN (20:49)
--- NOTE | 2023-02-10 06:02 | PN ---
PROGRESS NOTE SUBJECTIVE: This is a 37-year-old white male who comes in with abdominal pain, surgery does not want to operate on him. OBJECTIVE: VITAL SIGNS: Blood pressure 120s over 150s over 80s to 90s. CARDIOVASCULAR: S1, S2. LUNGS: Clear. GI: Soft. HEMATOLOGY: Negative for Homans. PSYCH: Fair mood and affect. ASSESSMENT: Pancreatitis, hypertension, renal insufficiency, dehydration. Continue with fluid rehydration, possible transfer down to for gallbladder surgery. Prognosis guarded. MMODL / IJN: [id number] /
[2023-02-10 08:13] VITALS: RESP 16
[2023-02-10] MEDS: NON FORMULARY DRUG (Dextroamphetamine/Amphetamine [Adderall] 30 MG Tablet) PO SCH ×2 (08:24→20:07)
[2023-02-10] MEDS: LOSARTAN 50 MG TAB PO SCH (08:25)
[2023-02-10] MEDS: SODIUM BICARBONATE TAB 650 MG TAB PO SCH ×2 (08:25→20:10)
[2023-02-10] MEDS: DAPAGLIFLOZIN PROPANEDIOL 5 MG TABLET PO SCH (08:25)
[2023-02-10] MEDS: MORPHINE SULFATE 4 MG/ML SYRINGE IV PRN ×4 (08:51→21:40)
[2023-02-10] MEDS: HYDROmorphone 0.5 MG/0.5 ML SYRINGE IVP PRN ×3 (09:28→20:10)
--- NOTE | 2023-02-10 10:07 | P.PN ---
Subjective Progress Note Date: 02/10/23 CHIEF COMPLAINT: Right upper quadrant abdominal pain HISTORY OF PRESENT ILLNESS: Patient continues to have right upper quadrant abdominal pain. Denies any nausea or vomiting. He has a history of biliary stent. Awaiting insurance authorization for transfer to [facility]. Afebrile. WBC 3.98 Hgb 13.7 LFTs normal Gallbladder ultrasound shows no evidence of acute cholecystitis and the stent was visualized. HIDA scan from 01/15/2023 shows nonvisualization of the gallbladder this could be related to drainage biliary catheter. PHYSICAL EXAM: VITAL SIGNS: Reviewed. GENERAL: Well-developed in no acute distress. ABDOMEN: Soft. Nondistended. Nontender. NEUROLOGIC: Alert and oriented. Cranial nerves II through XII grossly intact. ASSESSMENT: 1. Right upper quadrant abdominal pain 2. History of biliary stent PLAN: -Recommend transferred to [facility] -Continue supportive care Physician Checkering Machine Adjuster note has been reviewed by physician. Signing provider agrees with the documented findings, assessment, and plan of care. Objective - Vital Signs Vital signs: Vital Signs Temp 97.6 F 02/10/23 07:00 Pulse 88 02/10/23 07:00 Resp 16 02/10/23 07:00 BP 131/78 02/10/23 07:00 Pulse Ox 97 02/10/23 07:00 FiO2 Intake & Output 02/09/23 02/10/23 02/10/23 18:59 06:59 18:59 Intake Total 236 118 Balance 236 118 Intake: Oral 236 118 Other: Voiding Method Toilet # Voids 5 2 # Bowel Movements 1 - Labs CBC & Chem 7: 02/09/23 05:43 02/09/23 05:43
[2023-02-10] MEDS: SODIUM CHLORIDE 0.9% 1,000 ML IV SCH ×2 (10:17→17:30)
[2023-02-10] MEDS: HYDROcodone/APAP 7.5-325MG 1 EACH TAB PO PRN ×2 (11:23→18:14)
[2023-02-10] MEDS: ALPRAZolam 0.5 MG TAB PO PRN ×2 (13:23→20:10)
[2023-02-10] MEDS: ONDANSETRON 4 MG/2 ML VIAL IVP PRN (17:52)
[2023-02-10 17:58] LABS: Amylase 90 U/L (30-110); Lipase 316 U/L (23-300)
[2023-02-10] MEDS: QUEtiapine 50 MG TAB PO SCH (20:10)
--- NOTE | 2023-02-10 20:34 | PN ---
PROGRESS NOTE SUBJECTIVE: This 37-year-old white male remains on current medications for his gallbladder. Wait for surgical recommendations. We did not want to take his gallbladder out. [place] His creatinine is improved. OBJECTIVE: CARDIOVASCULAR: S1, S2. LUNGS: Transmitted upper sounds. HEMATOLOGY: Negative for Homans. PSYCH: Fair mood and affect. PLAN: Acute on chronic pancreatitis. Possibly transfer the patient to [facility] due to pancreatitis and possible gallbladder removal recommended by surgery. Please see further orders. MMODL / IJN: [id number] /
[2023-02-10 21:18] VITALS: BP 160/107; PULSE 98; TEMP 97.8
--- NOTE | 2023-02-11 02:33 | DS ---
DISCHARGE SUMMARY HISTORY OF PRESENT ILLNESS: Male, came to the hospital with retractable abdominal pain, acute on chronic pancreatitis secondary to cholecystitis, history of liver failure, history of cirrhosis, and history of renal failure, which has all improved in the last 3 years. He has been alcohol and drug free. He is much better to the point where he has elevated amylase lipase. He has seen his GI doctor recently, Dr. Ella james at [facility], who says he is okay to be transferred to see a surgeon to get his gallbladder out. The patient does not want to go home, wants to go to the rehab center over at [facility] where he can have his gallbladder removed instead of waiting 10 days to see a surgeon as an outpatient to accept him on a transfer. MEDICINES: As above. CONDITION: Stable. PROGNOSIS: Guarded. AMBULATE: As tolerated. MMIZZY / MEAGHANN: [id number] /
[2023-02-19] MEDS ORDERED: ERGOCALCIFEROL 1,250 MCG (50,000 IU) CAPSULE PO SCH (09:00)
== END 2023-02-10 21:49 | disposition short-term general hospital (02) ==
LOC: EC 15:40 → 6NMEDSUR 19:43
PROVIDERS: ADMIT Family Medicine; ATTEND Family Medicine
DX: K86.1 Other chronic pancreatitis (principal); K85.90 Acute pancreatitis without necrosis or infection, unspecified; R74.8 Abnormal levels of other serum enzymes; E86.0 Dehydration; I12.0 Hypertensive chronic kidney disease with stage 5 chronic kidney disease or end stage renal disease; N18.6 End stage renal disease; E53.8 Deficiency of other specified B group vitamins; F90.9 Attention-deficit hyperactivity disorder, unspecified type; Z90.49 Acquired absence of other specified parts of digestive tract; K76.9 Liver disease, unspecified; K70.10 Alcoholic hepatitis without ascites; Z79.84 Long term (current) use of oral hypoglycemic drugs; Z79.899 Other long term (current) drug therapy; Z98.890 Other specified postprocedural states; Z87.898 Personal history of other specified conditions; Z86.19 Personal history of other infectious and parasitic diseases; Z82.49 Family history of ischemic heart disease and other diseases of the circulatory system; Z81.3 Family history of other psychoactive substance abuse and dependence
CPT/HCPCS: 96376 ×6; 96361 ×5; 96374; 99285; 36415; 80053 ×3; 82150 ×4; 83605; 83690 ×4; 85025 ×3; 81001; 87635; 76705; G0378 ×5; J2270 ×4; J2405 ×4; J1885; J1170 ×5

== ENCOUNTER 2023-02-24 14:35 | Observation (INO) | payer OTHER ==
--- NOTE | 2023-02-24 15:11 | ED ---
Abdominal Pain HPI - General Source: patient, RN notes reviewed Mode of arrival: wheelchair Limitations: no limitations - History of Present Illness MD Complaint: abdominal pain <Sheryl Pierre - Last Filed: 02/24/23 15:04> - General Source: patient, RN notes reviewed Limitations: no limitations <Yaniv Beth - Last Filed: 02/24/23 19:14> - General Chief Complaint: Abdominal Pain Stated Complaint: Abd pain Time Seen by Provider: 02/24/23 15:05 - History of Present Illness Initial Comments: This is a 37 year old male who presents to the emergency department for abdominal pain. Patient was admitted yesterday for abdominal pain and they had planned to do a HIDA scan. However, he ended up leaving because his grandfather was ill and ended up passing away. He returns today due to the severity of his pain. Reports associated diarrhea. Denies any N/V. (Sheryl Pierre) Patient is a pleasant 37-year-old male presenting to the emergency Department with abdominal pain. Patient has had symptoms for several days. Patient does have history of gall bladder problems and previous stent. Patient did have stent removed a few weeks ago. Patient was admitted for pain control and further testing and possible cholecystectomy. Patient had to leave last night secondary to family emergency. Patient is having continued symptoms. Patient states symptoms are severe and constant. Decreased appetite. (Yaniv Beth) - Related Data Home Medications Medication Instructions Recorded Confirmed QUEtiapine [SEROquel] 50 mg PO HS 09/08/19 02/23/23 Dextroamphetamine/Amphetamine 30 mg PO BID 07/16/22 02/23/23 [Adderall] Sodium Bicarbonate 650 mg PO BID 07/16/22 02/23/23 calcitrioL [Calcitriol] 0.25 mcg PO MOTH 07/16/22 02/23/23 Dapagliflozin Propanediol [Farxiga] 5 mg PO DAILY 08/14/22 02/23/23 Ergocalciferol [Vitamin D2 (1250 1,250 mcg PO Q30D 08/14/22 02/23/23 Mcg = 87719 Iu)] Losartan Potassium 50 mg PO DAILY 08/14/22 02/23/23 Sildenafil Citrate 100 mg PO DAILY PRN 01/05/23 02/23/23 Naloxone HCl [Narcan] 4 mg NASAL DIRECTED PRN 02/23/23 02/23/23 methocarbamoL [Robaxin] 1,000 mg PO QID PRN 02/23/23 02/23/23 oxyCODONE HCL [OxyIR] 5 mg PO Q8H PRN 02/23/23 02/23/23 Previous Rx's Medication Instructions Recorded Ondansetron Odt [Zofran ODT] 4 mg PO Q8HR PRN #20 tab 02/05/23 Allergies Allergy/AdvReac Type Severity Reaction Status Date / Time No Known Allergies Allergy Verified 02/24/23 15:04 Review of Systems ROS Other: All systems not noted in ROS Statement are negative. <Sheryl Pierre - Last Filed: 02/24/23 15:04> ROS Other: All systems not noted in ROS Statement are negative. Constitutional: Denies: fever Eyes: Denies: eye pain ENT: Denies: ear pain Respiratory: Denies: cough Cardiovascular: Denies: chest pain Endocrine: Denies: fatigue Gastrointestinal: Reports: as per HPI, abdominal pain, nausea Genitourinary: Denies: dysuria Musculoskeletal: Denies: back pain <Yaniv Beth - Last Filed: 02/24/23 19:14> ROS Statement: Those systems with pertinent positive or pertinent negative responses have been documented in the HPI. Past Medical History Past Medical History: Dialysis, Hypertension, Liver Disease, Pneumonia, Renal Disease Additional Past Medical History / Comment(s): ETOH abuse, alcoholic hepatitis, 02/05/17 serology lab +for hepatitis C but pt unawarehas antibodies, B12 deficiency, hx of IVDA-heroin but none for almost 4. yrs, 03-14-2020 last dialysis History of Any Multi-Drug Resistant Organisms: None Reported Past Surgical History: No Surgical Hx Reported Additional Past Surgical History / Comment(s): tracheotomy, PEG tube placement, stent in gall bladder and removed , L arm fistula Past Anesthesia/Blood Transfusion Reactions: No Reported Reaction Past Psychological History: ADD/ADHD Additional Psychological History / Comment(s): Pt resides with his grandparents. Smoking Status: Vaper Past Alcohol Use History: None Reported Additional Past Alcohol Use History / Comment(s): Pt started smoking in 1998 and is a 0.25 ppd smoker. Past Drug Use History: None Reported Additional Drug Use History / Comment(s): CLEAN FROM HEROIN 2015 - Past Family History Father Family Medical History: No Reported History Additional Family Medical History / Comment(s): Father is a heroin addict clean 2-1/2 years now. Mother Family Medical History: Diabetes Mellitus, Hypertension <Sheryl Pierre - Last Filed: 02/24/23 15:04> General Exam <Sheryl Pierre - Last Filed: 02/24/23 15:04> Limitations: no limitations General appearance: alert, in no apparent distress Head exam: Present: normocephalic Eye exam: Present: normal appearance Neck exam: Present: normal inspection Respiratory exam: Present: normal lung sounds bilaterally Cardiovascular Exam: Present: regular rate, normal rhythm Expanded Peripheral pulses: 2+: Dorsalis Pedis (R), Dorsalis Pedis (L) GI/Abdominal exam: Present: soft, tenderness (Moderate epigastric tenderness), normal bowel sounds. Absent: pulsatile mass Extremities exam: Present: normal inspection Neurological exam: Present: alert Psychiatric exam: Present: normal affect, normal mood Skin exam: Present: normal color <Yaniv Beth Filed: 02/24/23 19:14> - General Exam Comments Initial Comments: Visual Physical Exam Vital signs reviewed General: Well-appearing, nontoxic, no acute distress. Head: Normocephalic, atraumatic Eyes: PERRLA, EOMI ENT: Airway patent Chest: Nonlabored breathing Skin: No visual rash, normal skin tone Neuro: Alert and oriented 3 Musculoskeletal: No gross abnormalities I performed the QuickNote portion of this chart. Signed Sheryl Pierre PA-C. (Sheryl Pierre) Course Vital Signs 02/24/23 15:04 Temperature 98.1 F Pulse Rate 99 Respiratory 18 Rate Blood Pressure 152/93 O2 Sat by Pulse 99 Oximetry Medical Decision Making - Lab Data Result diagrams: 02/24/23 15:27 02/24/23 15:27 <Yaniv Beth Filed: 02/24/23 19:14> - Medical Decision Making Was pt. sent in by a medical professional or institution ([facility] TER[facility] Mcfarland, VOUCHER EXAMINER, urgent care, hospital, or prison...) When possible be specific @ -No Did you speak to anyone other than the patient for history (EMS, parent, family, police, friend...)? What history was obtained from this source @ -No Did you review nursing and triage notes (agree or disagree)? Why? @ -I reviewed and agree with nursing and triage notes Were old charts reviewed (outside hosp., previous admission, EMS record, old EKG, old radiological studies, urgent care reports/EKG's, prison records)? Report findings @ -Previous admission reviewed Differential Diagnosis (chest pain, altered mental status, abdominal pain women, abdominal pain men, vaginal bleeding, weakness, fever, dyspnea, syncope, headache, dizziness, GI bleed, back pain, seizure, CVA, palpatations, mental health, musculoskeletal)? @ -Differential Abdominal Pain Men: Appendicitis, cholecystitis, diverticulosis, ischemic bowel, pancreatitis, hepatitis, UTI, gastroenteritis, AAA, incarcerated hernia, bowel obstruction, constipation, inflammatory bowel, hepatitis, peptic ulcer disease, splenic infarction, perforated viscus, testicular torsion, this is not meant to be an all-inclusive list EKG interpreted by me (3pts min.). @ -As above X-rays interpreted by me (1pt min.). @ -None done CT interpreted by me (1pt min.). @ -None done U/S interpreted by me (1pt. min.). @ -None done What testing was considered but not performed or refused? (CT, X-rays, U/S, labs)? Why? @ -None What meds were considered but not given or refused? Why? @ -None Did you discuss the management of the patient with other professionals (professionals i.e. , PA, VOUCHER EXAMINER, lab, RT, psych nurse, case management social worker, md ophthalmologist, te acher, special police officer, case specialist)? Give summary @ -Case was discussed with Dr. Schultz was familiar with this patient and would like to have him readmitted with surgical consult. Was smoking cessation discussed for >3mins.? @ -No Was critical care preformed (if so, how long)? @ -No Were there social determinants of health that impacted care today? How? (Homelessness, low income, unemployed, alcoholism, drug addiction, transportation, low edu. Level, literacy, decrease access to med. care, fci, rehab)? @ -No Was there de-escalation of care discussed even if they declined (Discuss DNR or withdrawal of care, Hospice)? DNR status @ -No What co-morbidities impacted this encounter? (DM, HTN, Smoking, COPD, CAD, Cancer, CVA, ARF, Chemo, Hep., AIDS, mental health diagnosis, sleep apnea, morbid obesity)? @ -None Was patient admitted / discharged? Hospital course, mention meds given and route, prescriptions, significant lab abnormalities, going to OR and other pe rtinent info. @ -Patient updated on plan. Patient will be admitted. Orders written. Consult will be placed. Undiagnosed new problem with uncertain prognosis? @ -No Drug Therapy requiring intensive monitoring for toxicity (Heparin, Nitro, Insulin, Cardizem)? @ -No Were any procedures done? @ -No Diagnosis/symptom? @ -Abdominal pain Acute, or Chronic, or Acute on Chronic? @ -Acute Uncomplicated (without systemic symptoms) or Complicated (systemic symptoms)? @ -default Side effects of treatment? @ -No Exacerbation, Progression, or Severe Exacerbation? @ -No Poses a threat to life or bodily function? How? (Chest pain, USA, AR, pneumonia, PE, COPD, DKA, ARF, appy, cholecystitis, CVA, Diverticulitis, Homicidal, Suicidal, threat to staff... and all critical care pts) @ -No (Yaniv Beth) - Lab Data Lab Results 02/24/23 02/24/23 02/24/23 Range/Units 15:27 15:27 15:27 WBC 6.2 (3.8-10.6) k/uL RBC 5.70 (4.30-5.90) m/uL Hgb 16.1 (13.0-17.5) gm/dL Hct 51.5 (39.0-53.0) % MCV 90.2 (80.0-100.0) fL MCH 28.3 (25.0-35.0) pg MCHC 31.4 (31.0-37.0) g/dL RDW 13.7 (11.5-15.5) % Plt Count 182 (150-450) k/uL MPV 7.5 Neutrophils % 71 % Lymphocytes % 17 % Monocytes % 6 % Eosinophils % 5 % Basophils % 0 % Neutrophils # 4.4 (1.3-7.7) k/uL Lymphocytes # 1.1 (1.0-4.8) k/uL Monocytes # 0.4 (0-1.0) k/uL Eosinophils # 0.3 (0-0.7) k/uL Basophils # 0.0 (0-0.2) k/uL Hypochromasia Slight Sodium 139 (137-145) mmol/L Potassium 5.0 (3.5-5.1) mmol/L Chloride 106 (98-107) mmol/L Carbon Dioxide 25 (22-30) mmol/L Anion Gap 8 mmol/L BUN 26 H (9-20) mg/dL Creatinine 2.07 H (0.66-1.25) mg/dL Est GFR (CKD-EPI)AfAm 46 (>60 ml/min/1.73 sqM) Est GFR (CKD-EPI)NonAf 40 (>60 ml/min/1.73 sqM) Glucose 91 (74-99) mg/dL Plasma Lactic Acid Niko 1.5 (0.7-2.0) mmol/L Calcium 9.7 (8.4-10.2) mg/dL Total Bilirubin 0.4 (0.2-1.3) mg/dL AST 25 (17-59) U/L ALT 23 (4-49) U/L Alkaline Phosphatase 122 (38-126) U/L Total Protein 7.6 (6.3-8.2) g/dL Albumin 4.2 (3.5-5.0) g/dL Amylase 108 (30-110) U/L Lipase 281 (23-300) U/L Disposition <Sheryl Pierre - Last Filed: 02/24/23 15:04> Is patient prescribed a controlled substance at d/c from ED?: No Time of Disposition: 19:13 <Yaniv Beth - Last Filed: 02/24/23 19:14> Clinical Impression: Abdominal pain Disposition: ADMITTED IP TO THIS HOSP Referrals: Maksim Schultz MD [Primary Care Provider] - 1-2 days
[2023-02-24 15:42] LABS: Basophils % (A) 0 %; Eosinophils # (A) 0.3 k/uL (0-0.7); Eosinophils % (A) 5 %; HCT 51.5 % (39.0-53.0); HGB 16.1 gm/dL (13.0-17.5); Hypochromasia Slight; Lymphocytes # (A) 1.1 k/uL (1.0-4.8); Lymphocytes % (A) 17 %; MCH 28.3 pg (25.0-35.0); MCHC 31.4 g/dL (31.0-37.0); MCV 90.2 fL (80.0-100.0); Mean Platelet Volume 7.5; Monocytes # (A) 0.4 k/uL (0-1.0); Monocytes % (A) 6 %; Neutrophils # (A) 4.4 k/uL (1.3-7.7); Neutrophils % (A) 71 %; Platelet Count 182 k/uL (150-450); RDW 13.7 % (11.5-15.5); WBC 6.2 k/uL (3.8-10.6)
[2023-02-24 15:49] LABS: ALT 23 U/L (4-49); AST 25 U/L (17-59); African American GFR (CKD) 46 (>60 ml/min/1.73 sqM); Albumin 4.2 g/dL (3.5-5.0); Alkaline Phosphatase 122 U/L (38-126); Amylase 108 U/L (30-110); Anion Gap 8 mmol/L; Blood Urea Nitrogen 26 mg/dL (9-20); Calcium 9.7 mg/dL (8.4-10.2); Carbon Dioxide 25 mmol/L (22-30); Chloride 106 mmol/L (98-107); Glucose 91 mg/dL (74-99); Lipase 281 U/L (23-300); Non-African American GFR(CKD) 40 (>60 ml/min/1.73 sqM); Sodium 139 mmol/L (137-145); Total Bilirubin 0.4 mg/dL (0.2-1.3); Total Protein 7.6 g/dL (6.3-8.2)
[2023-02-24] MEDS ORDERED: ACETAMINOPHEN TAB 325 MG TAB PO PRN (19:14)
[2023-02-24] MEDS ORDERED: HYDROmorphone 0.5 MG/0.5 ML SYRINGE IVP PRN (19:14)
[2023-02-24] MEDS ORDERED: NALOXONE 0.4 MG/ML 1 ML VIAL IV PRN (19:14)
[2023-02-24] MEDS ORDERED: ONDANSETRON 4 MG/2 ML VIAL IVP PRN (19:14)
[2023-02-24] MEDS: SODIUM CHLORIDE 0.9% 1,000 ML IV SCH (19:23)
[2023-02-24] MEDS: HYDROmorphone 1 MG/ML 1 ML SYRINGE IVP PRN ×2 (19:25→22:51)
[2023-02-24] MEDS ORDERED: methocarbamoL 500 MG TAB PO PRN (20:46)
[2023-02-24] MEDS ORDERED: ONDANSETRON ODT 4 MG TAB PO PRN (20:46)
[2023-02-24] MEDS ORDERED: QUEtiapine 50 MG TAB PO SCH (21:00)
[2023-02-24] MEDS ORDERED: LOSARTAN 50 MG TAB PO STA (22:12)
[2023-02-25] MEDS: HYDROmorphone 1 MG/ML 1 ML SYRINGE IVP PRN ×6 (01:50→20:00)
[2023-02-25] MEDS: SODIUM CHLORIDE 0.9% 1,000 ML IV SCH ×2 (04:07→14:35)
[2023-02-25] MEDS: NON FORMULARY DRUG (Dextroamphetamine/Amphetamine [Adderall] 30 MG Tablet) PO SCH ×2 (07:54→18:31)
[2023-02-25] MEDS ORDERED: LOSARTAN 50 MG TAB PO SCH (09:00)
[2023-02-25] MEDS ORDERED: PANTOPRAZOLE 40 MG/10 ML VIAL IV SCH (09:00)
[2023-02-25] MEDS ORDERED: DAPAGLIFLOZIN PROPANEDIOL 5 MG TABLET PO SCH (09:00)
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
--- NOTE | 2023-02-25 13:19 | NM ---
Nuclear medicine hepatobiliary scan. HISTORY: Pain. DOSAGE: The patient received 8 0z Ensure plus and 4.8 mCi of Technetium 99m Choletec. FINDINGS: There is normal hepatic extraction. The gallbladder is seen by 20 minutes. There is bilia ry to bowel clearance by 40 minutes. Ejection fraction is 99%. IMPRESSION: 1. No evidence of cholecystitis. 2. Ejection fraction of 99% can be associated with a predominant poorly
[2023-02-25 20:18] VITALS: BP 172/94; PULSE 92; RESP 14; TEMP 98.7
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
[2023-02-26 11:09] LABS: ALT 21 U/L (10-49); AST 22 U/L (14-35); Albumin 4.5 d/dL (3.8-4.9); Alkaline Phosphatase 105 U/L (41-126); BUN/Creat Ratio 11.58 Ratio (12.00-20.00); Calcium 9.8 mg/dL (8.7-10.3); Carbon Dioxide 20.7 mmol/L (21.6-31.8); Chloride 107 mmol/L (96-109); Glucose 88 mg/dL (70-110); Lipase 32 U/L (14-60); Potassium 4.5 mmol/L (3.5-5.5); Sodium 141 mmol/L (135-145); Total Bilirubin 0.4 mg/dL (0.3-1.2); Total Protein 7.5 d/dL (6.2-8.2)
[2023-02-26 13:48] LABS: HCT 53.7 % (39.6-50.0); HGB 16.4 d/dL (13.0-17.0); MCH 27.9 pg (27.0-32.0); MCHC 30.5 d/dL (32.0-37.0); MCV 91.5 FL (80.0-97.0); Mean Platelet Volume 11.1 FL (9.5-12.2); NRBC Per 100 WBC 0 X 10*3/uL (0.00-0.01); Platelet Count 222 X 10*3/uL (140-440); RBC 5.87 X 10*6/uL (4.40-5.60); RDW 13.8 % (11.5-14.5); WBC 9.34 X 10*3/uL (4.50-10.00)
[2023-03-10] MEDS ORDERED: ERGOCALCIFEROL 1,250 MCG (50,000 IU) CAPSULE PO SCH (09:00)
== END 2023-02-25 22:00 | disposition left against medical advice (07) ==
LOC: EC 14:35 → 6NMEDSUR 19:15 → 1SOBS 02-25 05:10
PROVIDERS: ADMIT Family Medicine; ATTEND Family Medicine
DX: K85.90 Acute pancreatitis without necrosis or infection, unspecified (principal); K82.8 Other specified diseases of gallbladder; K86.1 Other chronic pancreatitis; N17.9 Acute kidney failure, unspecified; I12.9 Hypertensive chronic kidney disease with stage 1 through stage 4 chronic kidney disease, or unspecified chronic kidney disease; N18.9 Chronic kidney disease, unspecified; K74.60 Unspecified cirrhosis of liver; K70.10 Alcoholic hepatitis without ascites; B19.20 Unspecified viral hepatitis C without hepatic coma; E53.8 Deficiency of other specified B group vitamins; Z79.84 Long term (current) use of oral hypoglycemic drugs; Z79.899 Other long term (current) drug therapy; Z87.01 Personal history of pneumonia (recurrent); F90.9 Attention-deficit hyperactivity disorder, unspecified type; Z87.898 Personal history of other specified conditions; Z98.890 Other specified postprocedural states; Z83.3 Family history of diabetes mellitus; Z82.49 Family history of ischemic heart disease and other diseases of the circulatory system; Z81.3 Family history of other psychoactive substance abuse and dependence; Z53.29 Procedure and treatment not carried out because of patient's decision for other reasons
CPT/HCPCS: 96375; 96376 ×3; 96361 ×2; 96374; 99285; 36415; 80053 ×2; 82150; 83605; 83690 ×2; 85025 ×2; 78227; G0378 ×3; A9537; J2805; J1170 ×2; C9113

== ENCOUNTER 2023-03-07 17:37 | Emergency (ER) | payer OTHER ==
[2023-03-07 18:11] VITALS: RESP 18
[2023-03-07] MEDS ORDERED: SODIUM CHLORIDE 0.9% 1,000 ML IV STA (19:02)
[2023-03-07] MEDS ORDERED: ONDANSETRON 4 MG/2 ML VIAL IVP STA (19:02)
[2023-03-07] MEDS ORDERED: HYDROmorphone 1 MG/ML 1 ML SYRINGE IVP STA (19:03)
[2023-03-07 20:03] LABS: Basophils % (A) 0 %; Eosinophils # (A) 0.2 k/uL (0-0.7); Eosinophils % (A) 5 %; HCT 50.5 % (39.0-53.0); HGB 16.2 gm/dL (13.0-17.5); Lymphocytes # (A) 1.3 k/uL (1.0-4.8); Lymphocytes % (A) 24 %; MCH 29.1 pg (25.0-35.0); MCHC 32.2 g/dL (31.0-37.0); MCV 90.4 fL (80.0-100.0); Mean Platelet Volume 8.1; Monocytes # (A) 0.4 k/uL (0-1.0); Monocytes % (A) 7 %; Neutrophils # (A) 3.2 k/uL (1.3-7.7); Neutrophils % (A) 61 %; Platelet Count 152 k/uL (150-450); RBC 5.59 m/uL (4.30-5.90); RDW 14.1 % (11.5-15.5); WBC 5.3 k/uL (3.8-10.6)
[2023-03-07 20:25] LABS: ALT 28 U/L (4-49); AST 30 U/L (17-59); African American GFR (CKD) 60 (>60 ml/min/1.73 sqM); Albumin 4.2 g/dL (3.5-5.0); Alkaline Phosphatase 114 U/L (38-126); Amylase 140 U/L (30-110); Anion Gap 10 mmol/L; Blood Urea Nitrogen 18 mg/dL (9-20); Calcium 10.5 mg/dL (8.4-10.2); Carbon Dioxide 23 mmol/L (22-30); Chloride 107 mmol/L (98-107); Glucose 55 mg/dL (74-99); Lipase 443 U/L (23-300); Non-African American GFR(CKD) 52 (>60 ml/min/1.73 sqM); Potassium 4.9 mmol/L (3.5-5.1); Sodium 140 mmol/L (137-145); Total Bilirubin 0.5 mg/dL (0.2-1.3); Total Protein 7.1 g/dL (6.3-8.2)
[2023-03-07 20:59] LABS: Appearance,Urine Clear (Clear); Bilirubin,Urine Negative (Negative); Blood,Urine Negative (Negative); Color,Urine Colorless; Glucose,Urine (UA) Negative (Negative); Ketones,Urine Negative (Negative); Leukocyte Esterase,Urine Negative (Negative); Nitrite,Urine Negative (Negative); PH, Urine 6.5 (5.0-8.0); Protein,Urine 1+ (Negative); RBC,Urine <1 /hpf (0-5); Specific Gravity,Urine 1.009 (1.001-1.035); Urobilinogen,Urine <2.0 mg/dL (<2.0)
[2023-03-07 21:29] LABS: Glucose,Whole Blood 107 mg/dL (70-110)
--- NOTE | 2023-03-07 21:39 | CT ---
EXAMINATION TYPE: CT abdomen pelvis w con CT DLP: 968 mGycm, Automated exposure control for dose reduction was used. DATE OF EXAM: 03/07/2023 9:22 PM COMPARISON: CT abdomen pelvis most recent from CLINICAL INDICATION:Male, 37 years old with history of RLQ pain; right sided abdominal pain TECHNIQUE: Axial CT of the abdomen and pelvis. Sagittal and coronal reformats were created on a [employer] workstation. Contrast used:80cc mL of Isovue 300 with IV Contrast, (none if empty) Oral contrast used: without Oral Contrast (none if empty) FINDINGS: LOWER CHEST: Unremarkable ABDOMEN LIVER: Nodular contour to liver with hypertrophy of the caudate lobe. Recanalization of the periumbil ical vein. GALLBLADDER AND BILE DUCTS: Nondistended gallbladder. Biliary stent is no longer visualized. No bilia ry dilation is present. PANCREAS: Main pancreatic duct is within normal limits. SPLEEN: Enlarged measuring up to 14.3 cm. ADRENAL GLANDS: Unremarkable. KIDNEYS AND URETERS: No evidence of hydronephrosis or renal calculus. The ureters are unremarkable. PELVIS BLADDER: Unremarkable REPRODUCTIVE: Unremarkable. ABDOMEN & PELVIS STOMACH AND BOWEL: No evidence of bowel obstruction. PERITONEUM/RETROPERITONEUM: No evidence of pneumoperitoneum or free fluid. VASCULATURE: No evidence of aortic aneurysm. MUSCULOSKELETAL: No acute osseous abnormalities LYMPH NODES: No gross evidence for lymphadenopathy. SOFT TISSUE/ABDOMINAL WALL: Fat-containing umbilical hernia. IMPRESSION: 1. No evidence for acute process, No evidence for obstructive uropathy or renal calculus. The append ix is normal. 2. Hepatic cirrhosis with evidence of portal hypertension with splenomegaly and recanalization of pe riumbilical vein.
[2023-03-07] MEDS ORDERED: HYDROmorphone 0.5 MG/0.5 ML SYRINGE IVP STA (22:11)
--- NOTE | 2023-03-07 22:12 | ED ---
Abdominal Pain HPI - General Chief Complaint: Abdominal Pain Stated Complaint: Abd Pain Time Seen by Provider: 03/07/23 18:33 Source: patient Mode of arrival: ambulatory Limitations: no limitations - History of Present Illness Initial Comments: 37-year-old male presenting with chief complaint of abdominal pain. History of hypertension, alcohol abuse, alcoholic hepatitis. Patient is complaining of right lower quadrant pain. He states that he has had this pain in the past and "Dr. Schultz has admitted me for this before". Patient was recently admitted for intractable abdominal pain, he signed out AMA and returned, was admitted again. It was determined that he has to schedule an outpatient cholecystectomy after HIDA scan was performed. He admits to nausea, vomiting, diarrhea. No fevers or chills. No chest pain or difficulty breathing. No hematochezia or melena. No dysuria or hematuria. - Related Data Home Medications Medication Instructions Recorded Confirmed QUEtiapine [SEROquel] 50 mg PO HS 09/08/19 02/24/23 Dextroamphetamine/Amphetamine 30 mg PO BID 07/16/22 02/24/23 [Adderall] Sodium Bicarbonate 650 mg PO BID 07/16/22 02/24/23 calcitrioL [Calcitriol] 0.25 mcg PO MOTH 07/16/22 02/24/23 Dapagliflozin Propanediol [Farxiga] 5 mg PO DAILY 08/14/22 02/24/23 Ergocalciferol [Vitamin D2 (1250 1,250 mcg PO Q30D 08/14/22 02/24/23 Mcg = 99509 Iu)] Losartan Potassium 50 mg PO DAILY 08/14/22 02/24/23 Sildenafil Citrate 100 mg PO DAILY PRN 01/05/23 02/24/23 Naloxone HCl [Narcan] 4 mg NASAL DIRECTED PRN 02/23/23 02/24/23 methocarbamoL [Robaxin] 1,000 mg PO QID PRN 02/23/23 02/24/23 oxyCODONE HCL [OxyIR] 5 mg PO Q8H PRN 02/23/23 02/24/23 Previous Rx's Medication Instructions Recorded Ondansetron Odt [Zofran ODT] 4 mg PO Q8HR PRN #20 tab 02/05/23 Allergies Allergy/AdvReac Type Severity Reaction Status Date / Time No Known Allergies Allergy Verified 03/07/23 18:07 Review of Systems ROS Statement: Those systems with pertinent positive or pertinent negative responses have been documented in the HPI. ROS Other: All systems not noted in ROS Statement are negative. Past Medical History Past Medical History: Dialysis, Hypertension, Liver Disease, Pneumonia, Renal Disease Additional Past Medical History / Comment(s): ETOH abuse, alcoholic hepatitis, 02/05/17 serology lab +for hepatitis C but pt unawarehas antibodies, B12 deficiency, hx of IVDA-heroin but none for almost 4. yrs, 03-14-2020 last dialysis History of Any Multi-Drug Resistant Organisms: None Reported Past Surgical History: No Surgical Hx Reported Additional Past Surgical History / Comment(s): tracheotomy, PEG tube placement, stent in gall bladder and removed , L arm fistula Past Anesthesia/Blood Transfusion Reactions: No Reported Reaction Past Psychological History: ADD/ADHD Smoking Status: Vaper Past Alcohol Use History: None Reported Past Drug Use History: None Reported - Past Family History Father Family Medical History: No Reported History Additional Family Medical History / Comment(s): Father is a heroin addict clean 2-1/2 years now. Mother Family Medical History: Diabetes Mellitus, Hypertension General Exam Limitations: no limitations General appearance: alert, in no apparent distress Head exam: Present: atraumatic, normocephalic, normal inspection Eye exam: Present: normal appearance, EOMI Neck exam: Present: normal inspection, full ROM Respiratory exam: Present: normal lung sounds bilaterally. Absent: respiratory distress, wheezes, rales, rhonchi, stridor Cardiovascular Exam: Present: regular rate, normal rhythm, normal heart sounds. Absent: systolic murmur, diastolic murmur, rubs, gallop, clicks GI/Abdominal exam: Present: soft, tenderness. Absent: distended, guarding, rebound, rigid Neurological exam: Present: alert, oriented X3 Psychiatric exam: Present: normal affect, normal mood Skin exam: Present: warm, dry, intact, normal color. Absent: rash Course Vital Signs 03/07/23 03/07/23 03/07/23 18:05 19:37 21:23 Temperature 98.0 F Pulse Rate 104 H 106 H 100 Respiratory 18 18 18 Rate Blood Pressure 140/87 153/99 153/98 O2 Sat by Pulse 98 95 99 Oximetry 03/07/23 22:42 Temperature 97.7 F Pulse Rate 102 H Respiratory 18 Rate Blood Pressure 154/90 O2 Sat by Pulse 97 Oximetry Medical Decision Making - Medical Decision Making Was pt. sent in by a medical professional or institution (MARIA TERESA Mcfarland, MEDIA MANAGER, urgent care, hospital, or custodial...) When possible be specific @ -No Did you speak to anyone other than the patient for history (EMS, parent, family, police, friend...)? What history was obtained from this source @ -No Did you review nursing and triage notes (agree or disagree)? Why? @ -I reviewed and agree with nursing and triage notes Were old charts reviewed (outside hosp., previous admission, EMS record, old EKG, old radiological studies, urgent care reports/EKG's, custodial records)? Report findings @ -No old charts were reviewed Differential Diagnosis (chest pain, altered mental status, abdominal pain women, abdominal pain men, vaginal bleeding, weakness, fever, dyspnea, syncope, headache, dizziness, GI bleed, back pain, seizure, CVA, palpatations, mental health, musculoskeletal)? @ -MDM Differential Abdominal Pain Men: Appendicitis, cholecystitis, diverticulosis, ischemic bowel, pancreatitis, hepatitis, UTI, gastroenteritis, AAA, incarcerated hernia, bowel obstruction, constipation, inflammatory bowel, hepatitis, peptic ulcer disease, splenic infarction, perforated viscus, testicular torsion... This is not meant to be an all-inclusive list EKG interpreted by me (3pts min.). @ -As above X-rays interpreted by me (1pt min.). @ -None done CT interpreted by me (1pt min.). @ -No evidence for acute process, no evidence for obstructive uropathy or renal calculus, the appendix is normal. Hepatic cirrhosis with evidence of portal hypertension with splenomegaly and recannulization of periumbilical vein U/S interpreted by me (1pt. min.). @ -None done What testing was considered but not performed or refused? (CT, X-rays, U/S, labs)? Why? @ -None What meds were considered but not given or refused? Why? @ -None Did you discuss the management of the patient with other professionals (professionals i.e. MARIA TERESA Mcfarland, MEDIA MANAGER, lab, RT, psych nurse, foster care social worker, minilab operator, teacher, protective officer, counseling case manager)? Give summary @ -No Was smoking cessation discussed for >3mins.? @ -No Was critical care preformed (if so, how long)? @ -No Were there social determinants of health that impacted care today? How? (Homelessness, low income, unemployed, alcoholism, drug addiction, transportation, low edu. Level, literacy, decrease access to med. care, [facility], rehab)? @ -No Was there de-escalation of care discussed even if they declined (Discuss DNR or withdrawal of care, Hospice)? DNR status @ -No What co-morbidities impacted this encounter? (DM, HTN, Smoking, COPD, CAD, Cancer, CVA, ARF, Chemo, Hep., AIDS, mental health diagnosis, sleep apnea, m orbid obesity)? @ -None Was patient admitted / discharged? Hospital course, mention meds given and route, prescriptions, significant lab abnormalities, going to OR and other pertinent info. @ -37-year-old male with history of cirrhosis presenting with chief complaint of abdominal pain. Patient has history of chronic abdominal pain. Physical examination is conducted. Lab work shows no leukocytosis or anemia. Mild elevation of amylase and lipase at 140 and 443 respectively, patient has been elevated at these levels in the past. Pain is in the lower abdomen, no epigastric pain. Urine shows no infectious process. CT shows no acute process. Patient is resting comfortably on reassessment. He'll be discharged and instructed to follow-up with Dr. Schultz. Follow-up with PCP. Report back to ER with any new or worsening symptoms. Discussed return parameters and answered all questions. Patient conveyed verbal understanding and agreed to the plan. I discussed this case in detail with my attending Dr. Levin Undiagnosed new problem with uncertain prognosis? @ -No Drug Therapy requiring intensive monitoring for toxicity (Heparin, Nitro, Insulin, Cardizem)? @ -No Were any procedures done? @ -No Diagnosis/symptom? @ -Abdominal pain Acute, or Chronic, or Acute on Chronic? @ -Acute on chronic Uncomplicated (without systemic symptoms) or Complicated (systemic symptoms)? @ -Uncomplicated Side effects of treatment? @ -No Exacerbation, Progression, or Severe Exacerbation? @ -No Poses a threat to life or bodily function? How? (Chest pain, [place], [place], pneumonia, PE, COPD, DKA, ARF, appy, cholecystitis, CVA, Diverticulitis, Homicidal, Suicidal, threat to staff... and all critical care pts) @ -No - Lab Data Result diagrams: 03/07/23 19:25 03/07/23 19:25 Lab Results 03/07/23 03/07/23 03/07/23 Range/Units 19:25 19:25 19:25 WBC 5.3 (3.8-10.6) k/uL RBC 5.59 (4.30-5.90) m/uL Hgb 16.2 (13.0-17.5) gm/dL Hct 50.5 (39.0-53.0) % MCV 90.4 (80.0-100.0) fL MCH 29.1 (25.0-35.0) pg MCHC 32.2 (31.0-37.0) g/dL RDW 14.1 (11.5-15.5) % Plt Count 152 (150-450) k/uL MPV 8.1 Neutrophils % 61 % Lymphocytes % 24 % Monocytes % 7 % Eosinophils % 5 % Basophils % 0 % Neutrophils # 3.2 (1.3-7.7) k/uL Lymphocytes # 1.3 (1.0-4.8) k/uL Monocytes # 0.4 (0-1.0) k/uL Eosinophils # 0.2 (0-0.7) k/uL Basophils # 0.0 (0-0.2) k/uL Sodium 140 (137-145) mmol/L Potassium 4.9 (3.5-5.1) mmol/L Chloride 107 (98-107) mmol/L Carbon Dioxide 23 (22-30) mmol/L Anion Gap 10 mmol/L BUN 18 (9-20) mg/dL Creatinine 1.67 H (0.66-1.25) mg/dL Est GFR (CKD-EPI)AfAm 60 (>60 ml/min/1.73 sqM) Est GFR (CKD-EPI)NonAf 52 (>60 ml/min/1.73 sqM) Glucose 55 L (74-99) mg/dL POC Glucose (mg/dL) (70-110) mg/dL POC Glu Tubing Machine Operator ID Plasma Lactic Acid Niko (0.7-2.0) mmol/L Calcium 10.5 H (8.4-10.2) mg/dL Total Bilirubin 0.5 (0.2-1.3) mg/dL AST 30 (17-59) U/L ALT 28 (4-49) U/L Alkaline Phosphatase 114 (38-126) U/L Total Protein 7.1 (6.3-8.2) g/dL Albumin 4.2 (3.5-5.0) g/dL Amylase 140 H (30-110) U/L Lipase 443 H (23-300) U/L Urine Color Colorless Urine Appearance Clear (Clear) Urine pH 6.5 (5.0-8.0) Ur Specific [place] 1.009 (1.001-1.035) Urine Protein 1+ H (Negative) Urine Glucose (UA) Negative (Negative) Urine Ketones Negative (Negative) Urine Blood Negative (Negative) Urine Nitrite Negative (Negative) Urine Bilirubin Negative (Negative) Urine Urobilinogen <2.0 (<2.0) mg/dL Ur Leukocyte Esterase Negative (Negative) Urine RBC <1 (0-5) /hpf 03/07/23 03/07/23 Range/Units 19:25 21:28 WBC (3.8-10.6) k/uL RBC (4.30-5.90) m/uL Hgb (13.0-17.5) gm/dL Hct (39.0-53.0) % MCV (80.0-100.0) fL MCH (25.0-35.0) pg MCHC (31.0-37.0) g/dL RDW (11.5-15.5) % Plt Count (150-450) k/uL MPV Neutrophils % % Lymphocytes % % Monocytes % % Eosinophils % % Basophils % % Neutrophils # (1.3-7.7) k/uL Lymphocytes # (1.0-4.8) k/uL Monocytes # (0-1.0) k/uL Eosinophils # (0-0.7) k/uL Basophils # (0-0.2) k/uL Sodium (137-145) mmol/L Potassium (3.5-5.1) mmol/L Chloride (98-107) mmol/L Carbon Dioxide (22-30) mmol/L Anion Gap mmol/L BUN (9-20) mg/dL Creatinine (0.66-1.25) mg/dL Est GFR (CKD-EPI)AfAm (>60 ml/min/1.73 sqM) Est GFR (CKD-EPI)NonAf (>60 ml/min/1.73 sqM) Glucose (74-99) mg/dL POC Glucose (mg/dL) 107 (70-110) mg/dL POC Glu Tubing Machine Operator Valerie Gallagher T Plasma Lactic Acid Niko 1.0 (0.7-2.0) mmol/L Calcium (8.4-10.2) mg/dL Total Bilirubin (0.2-1.3) mg/dL AST (17-59) U/L ALT (4-49) U/L Alkaline Phosphatase (38-126) U/L Total Protein (6.3-8.2) g/dL Albumin (3.5-5.0) g/dL Amylase (30-110) U/L Lipase (23-300) U/L Urine Color Urine Appearance (Clear) Urine pH (5.0-8.0) Ur Specific [place] (1.001-1.035) Urine Protein (Negative) Urine Glucose (UA) (Negative) Urine Ketones (Negative) Urine Blood (Negative) Urine Nitrite (Negative) Urine Bilirubin (Negative) Urine Urobilinogen (<2.0) mg/dL Ur Leukocyte Esterase (Negative) Urine RBC (0-5) /hpf Disposition Clinical Impression: Abdominal pain Disposition: HOME SELF-CARE Condition: Good Instructions (If sedation given, give patient instructions): Chronic Abdominal Pain (ED) Additional Instructions: Hospital help with PCP. Report back to ER with any new or worsening symptoms. Is patient prescribed a controlled substance at d/c from ED?: No Referrals: Maksim Schultz MD [Primary Care Provider] - 1-2 days Time of Disposition: 22:12
[2023-03-07 22:55] VITALS: BP 154/90; PULSE 102; TEMP 97.7
== END 2023-03-07 22:48 | disposition home or self-care (01) ==
LOC: EC 17:37
DX: R10.31 Right lower quadrant pain (principal); I10 Essential (primary) hypertension; F90.9 Attention-deficit hyperactivity disorder, unspecified type; F17.290 Nicotine dependence, other tobacco product, uncomplicated; Z79.899 Other long term (current) drug therapy
CPT/HCPCS: 36415; 80053; 82150; 83605; 83690; 85025; 81001; 74177; 99284; 96374; 96375; 96376; 96361 ×3; J2405; J1170 ×2; Q9967

== ENCOUNTER 2023-04-05 17:54 | Observation (INO) | payer OTHER ==
[2023-04-05] MEDS ORDERED: ONDANSETRON 4 MG/2 ML VIAL IVP STA (18:52)
[2023-04-05] MEDS ORDERED: MORPHINE SULFATE 4 MG/ML SYRINGE IV STA (18:52)
[2023-04-05] MEDS ORDERED: SODIUM CHLORIDE 0.9% 2,000 ML IV STA (18:52)
[2023-04-05 19:16] LABS: Basophils % (A) 0 %; Eosinophils # (A) 0.2 k/uL (0-0.7); Eosinophils % (A) 5 %; HCT 50.4 % (39.0-53.0); HGB 16.1 gm/dL (13.0-17.5); Hypochromasia Slight; Lymphocytes # (A) 1.1 k/uL (1.0-4.8); Lymphocytes % (A) 25 %; MCH 28.9 pg (25.0-35.0); MCV 90.4 fL (80.0-100.0); Mean Platelet Volume 7.8; Monocytes # (A) 0.4 k/uL (0-1.0); Monocytes % (A) 8 %; Neutrophils # (A) 2.8 k/uL (1.3-7.7); Neutrophils % (A) 61 %; Platelet Count 147 k/uL (150-450); RBC 5.57 m/uL (4.30-5.90); RDW 13.6 % (11.5-15.5); WBC 4.6 k/uL (3.8-10.6)
--- NOTE | 2023-04-05 19:29 | ED ---
General Adult HPI - General Chief complaint: Nausea/Vomiting/Diarrhea Stated complaint: Abd pain Time Seen by Provider: 04/05/23 18:25 Source: patient, RN notes reviewed Mode of arrival: ambulatory Limitations: no limitations - History of Present Illness Initial comments: 37-year-old male presents to the emergency department chief complaint of nausea, vomiting, abdominal pain. He states that the symptoms started 4 days ago. He also admits to diarrhea. He states that the pain is in the upper abdomen mostly in the right side. He states that he has had issues with his gallbladder in the past and this feels similar. He denies fever, chills. Past medical history includes CKD, pancreatitis. He is scheduled to see Dr. Maradiaga on outpatient basis this week. - Related Data Home Medications Medication Instructions Recorded Confirmed QUEtiapine [SEROquel] 50 mg PO HS 09/08/19 02/24/23 Dextroamphetamine/Amphetamine 30 mg PO BID 07/16/22 02/24/23 [Adderall] Sodium Bicarbonate 650 mg PO BID 07/16/22 02/24/23 calcitrioL [Calcitriol] 0.25 mcg PO MOTH 07/16/22 02/24/23 Dapagliflozin Propanediol [Farxiga] 5 mg PO DAILY 08/14/22 02/24/23 Ergocalciferol [Vitamin D2 (1250 1,250 mcg PO Q30D 08/14/22 02/24/23 Mcg = 42035 Iu)] Losartan Potassium 50 mg PO DAILY 08/14/22 02/24/23 Sildenafil Citrate 100 mg PO DAILY PRN 01/05/23 02/24/23 Naloxone HCl [Narcan] 4 mg NASAL DIRECTED PRN 02/23/23 02/24/23 methocarbamoL [Robaxin] 1,000 mg PO QID PRN 02/23/23 02/24/23 oxyCODONE HCL [OxyIR] 5 mg PO Q8H PRN 02/23/23 02/24/23 Previous Rx's Medication Instructions Recorded Ondansetron Odt [Zofran ODT] 4 mg PO Q8HR PRN #20 tab 02/05/23 Allergies Allergy/AdvReac Type Severity Reaction Status Date / Time No Known Allergies Allergy Verified 04/05/23 18:03 Review of Systems ROS Statement: Those systems with pertinent positive or pertinent negative responses have been documented in the HPI. ROS Other: All systems not noted in ROS Statement are negative. Past Medical History Past Medical History: Dialysis, Hypertension, Liver Disease, Pneumonia, Renal Disease Additional Past Medical History / Comment(s): ETOH abuse, alcoholic hepatitis, 02/05/17 serology lab +for hepatitis C but pt unawarehas antibodies, B12 deficiency, hx of IVDA-heroin but none for almost 4. yrs, 03-14-2020 last dialysis History of Any Multi-Drug Resistant Organisms: None Reported Past Surgical History: No Surgical Hx Reported Additional Past Surgical History / Comment(s): tracheotomy, PEG tube placement, stent in gall bladder and removed , L arm fistula Past Anesthesia/Blood Transfusion Reactions: No Reported Reaction Past Psychological History: ADD/ADHD Smoking Status: Vaper Past Alcohol Use History: None Reported Past Drug Use History: None Reported - Past Family History Father Family Medical History: No Reported History Additional Family Medical History / Comment(s): Father is a heroin addict clean 2-1/2 years now. Mother Family Medical History: Diabetes Mellitus, Hypertension General Exam Limitations: no limitations General appearance: alert, in no apparent distress Head exam: Present: atraumatic, normocephalic, normal inspection Eye exam: Present: normal appearance, PERRL, EOMI. Absent: scleral icterus, conjunctival injection, periorbital swelling ENT exam: Present: normal exam, mucous membranes moist Neck exam: Present: normal inspection. Absent: tenderness, meningismus, lymphadenopathy Respiratory exam: Present: normal lung sounds bilaterally. Absent: respiratory distress, wheezes, rales, rhonchi, stridor Cardiovascular Exam: Present: regular rate, normal rhythm, normal heart sounds. Absent: systolic murmur, diastolic murmur, rubs, gallop, clicks GI/Abdominal exam: Present: soft, tenderness (RUQ), normal bowel sounds. Absent: distended, guarding, rebound, rigid Extremities exam: Present: normal inspection, full ROM, normal capillary refill. Absent: tenderness, pedal edema, joint swelling, calf tenderness Back exam: Present: normal inspection Neurological exam: Present: alert, oriented X3 Psychiatric exam: Present: normal affect, normal mood Skin exam: Present: warm, dry, intact, normal color. Absent: rash Course Vital Signs 04/05/23 04/05/23 18:01 22:20 Temperature 98.7 F Pulse Rate 113 H 104 H Respiratory 22 18 Rate Blood Pressure 131/82 148/99 O2 Sat by Pulse 97 99 Oximetry Medical Decision Making - Medical Decision Making Was pt. sent in by a medical professional or institution (, MARIA TERESA, GEOSPATIAL DEVELOPER, urgent care, hospital, or senior living...) When possible be specific @ -No Did you speak to anyone other than the patient for history (EMS, parent, family, police, friend...)? What history was obtained from this source @ -No Did you review nursing and triage notes (agree or disagree)? Why? @ -I reviewed and agree with nursing and triage notes Were old charts reviewed (outside hosp., previous admission, EMS record, old EKG, old radiological studies, urgent care reports/EKG's, senior living records)? Report findings @ -No old charts were reviewed Differential Diagnosis (chest pain, altered mental status, abdominal pain women, abdominal pain men, vaginal bleeding, weakness, fever, dyspnea, syncope, headache, dizziness, GI bleed, back pain, seizure, CVA, palpatations, mental health, musculoskeletal)? @ -Differential Abdominal Pain Men: Appendicitis, cholecystitis, diverticulosis, ischemic bowel, pancreatitis, hepatitis, UTI, gastroenteritis, AAA, incarcerated hernia, bowel obstruction, constipation, inflammatory bowel, hepatitis, peptic ulcer disease, splenic infarction, perforated viscus, testicular torsion, this is not meant to be an all-inclusive list EKG interpreted by me (3pts min.). @ -None X-rays interpreted by me (1pt min.). @ -None done CT interpreted by me (1pt min.). @ -None done U/S interpreted by me (1pt. min.). @ -gallbladder ultrasound shows no evidence of acute process What testing was considered but not performed or refused? (CT, X-rays, U/S, labs)? Why? @ -None What meds were considered but not given or refused? Why? @ -None Did you discuss the management of the patient with other professionals (professionals i.e. MARIA TERESA Mcfarland, GEOSPATIAL DEVELOPER, lab, RT, psych nurse, social media analyst, press smith helper, t eacher, commanding officer homicide squad, casework manager)? Give summary @ -Management discussed with Dr. Eid who is accepting of the admission. Was smoking cessation discussed for >3mins.? @ -No Was critical care preformed (if so, how long)? @ -No Were there social determinants of health that impacted care today? How? (Homelessness, low income, unemployed, alcoholism, drug addiction, transportation, low edu. Level, literacy, decrease access to med. care, nursing home, rehab)? @ -No Was there de-escalation of care discussed even if they declined (Discuss DNR or withdrawal of care, Hospice)? DNR status @ -No What co-morbidities impacted this encounter? (DM, HTN, Smoking, COPD, CAD, Cancer, CVA, ARF, Chemo, Hep., AIDS, mental health diagnosis, sleep apnea, morbid obesity)? @ -None Was patient admitted / discharged? Hospital course, mention meds given and route, prescriptions, significant lab abnormalities, going to OR and other pertinent info. @ -admitted. Patient presented to the emergency department with chief complaint of upper abdominal pain 3-4 days. He has a history of similar pain and has been seen in our emergency department multiple times for this. Laboratory studies obtained show WBC 4.6, hemoglobin 16.1; CMP shows sodium 141, potassium 4.3, creatinine 2.31; UA shows 1+ protein, negative nitrate, negative leukocyte esterase. Gallbladder ultrasound shows no evidence of acute process. Patient given fluids. Patient given morphine, Dilaudid which slightly improved his symptoms but he continues to have pain. Patient will be admitted for intractable pain. Case discussed with Dr. Eid was accepting of the admission. Patient stable at time of admission. Case discussed with Dr. Conroy Undiagnosed new problem with uncertain prognosis? @ -No Drug Therapy requiring intensive monitoring for toxicity (Heparin, Nitro, Insulin, Cardizem)? @ -No Were any procedures done? @ -No Diagnosis/symptom? @ -Intractable abdominal pain Acute, or Chronic, or Acute on Chronic? @ -acute on chronic Uncomplicated (without systemic symptoms) or Complicated (systemic symptoms)? @ -Uncomplicated Side effects of treatment? @ -No Exacerbation, Progression, or Severe Exacerbation? @ -No Poses a threat to life or bodily function? How? (Chest pain, USA, MT, pneumonia, PE, COPD, DKA, ARF, appy, cholecystitis, CVA, Diverticulitis, Homicidal, S uicidal, threat to staff... and all critical care pts) @ -No - Lab Data Result diagrams: 04/05/23 19:01 04/05/23 19:01 Lab Results 04/05/23 04/05/23 04/05/23 Range/Units 19: 19: 19: WBC 4.6 (3.8-10.6) k/uL RBC 5.57 (4.30-5.90) m/uL Hgb 16.1 (13.0-17.5) gm/dL Hct 50.4 (39.0-53.0) % MCV 90.4 (80.0-100.0) fL MCH 28.9 (25.0-35.0) pg MCHC 32.0 (31.0-37.0) g/dL RDW 13.6 (11.5-15.5) % Plt Count 147 L (150-450) k/uL MPV 7.8 Neutrophils % 61 % Lymphocytes % 25 % Monocytes % 8 % Eosinophils % 5 % Basophils % 0 % Neutrophils # 2.8 (1.3-7.7) k/uL Lymphocytes # 1.1 (1.0-4.8) k/uL Monocytes # 0.4 (0-1.0) k/uL Eosinophils # 0.2 (0-0.7) k/uL Basophils # 0.0 (0-0.2) k/uL Hypochromasia Slight Sodium 141 (137-145) mmol/L Potassium 4.3 (3.5-5.1) mmol/L Chloride 107 (98-107) mmol/L Carbon Dioxide 25 (22-30) mmol/L Anion Gap 9 mmol/L BUN 24 H (9-20) mg/dL Creatinine 2.31 H (0.66-1.25) mg/dL Est GFR (CKD-EPI)AfAm 40 (>60 ml/min/1.73 sqM) Est GFR (CKD-EPI)NonAf 35 (>60 ml/min/1.73 sqM) Glucose 85 (74-99) mg/dL Calcium 10.3 H (8.4-10.2) mg/dL Total Bilirubin 0.3 (0.2-1.3) mg/dL AST 26 (17-59) U/L ALT 25 (4-49) U/L Alkaline Phosphatase 124 (38-126) U/L Total Protein 6.5 (6.3-8.2) g/dL Albumin 3.8 (3.5-5.0) g/dL Amylase 90 (30-110) U/L Lipase 193 (23-300) U/L Urine Color Colorless Urine Appearance Clear (Clear) Urine pH 7.0 (5.0-8.0) Ur Specific Plaza 1.014 (1.001-1.035) Urine Protein 1+ H (Negative) Urine Glucose (UA) Negative (Negative) Urine Ketones Negative (Negative) Urine Blood Negative (Negative) Urine Nitrite Negative (Negative) Urine Bilirubin Negative (Negative) Urine Urobilinogen <2.0 (<2.0) mg/dL Ur Leukocyte Esterase Negative (Negative) Urine RBC 1 (0-5) /hpf Urine WBC <1 (0-5) /hpf Urine Mucus Rare H (None) /hpf Disposition Clinical Impression: Intractable abdominal pain Disposition: ADMITTED IP TO THIS [facility] Condition: Stable Is patient prescribed a controlled substance at d/c from ED?: No Referrals: Maksim Schultz MD [Primary Care Provider] - 1-2 days
[2023-04-05 19:35] LABS: ALT 25 U/L (4-49); AST 26 U/L (17-59); African American GFR (CKD) 40 (>60 ml/min/1.73 sqM); Albumin 3.8 g/dL (3.5-5.0); Alkaline Phosphatase 124 U/L (38-126); Amylase 90 U/L (30-110); Anion Gap 9 mmol/L; Blood Urea Nitrogen 24 mg/dL (9-20); Calcium 10.3 mg/dL (8.4-10.2); Carbon Dioxide 25 mmol/L (22-30); Chloride 107 mmol/L (98-107); Glucose 85 mg/dL (74-99); Lipase 193 U/L (23-300); Non-African American GFR(CKD) 35 (>60 ml/min/1.73 sqM); Potassium 4.3 mmol/L (3.5-5.1); Sodium 141 mmol/L (137-145); Total Bilirubin 0.3 mg/dL (0.2-1.3); Total Protein 6.5 g/dL (6.3-8.2)
--- NOTE | 2023-04-05 19:46 | US ---
EXAMINATION TYPE: US gallbladder DATE OF EXAM: 04/05/2023 COMPARISON: NONE CLINICAL INDICATION: Male, 37 years old with history of pain; History of pancreatitis, abdominal pain , nausea and vomiting TECHNIQUE: Multiple sonographic images of the right upper quadrant are obtained. FINDINGS: EXAM MEASUREMENTS: Liver Length: 15.7 cm Gallbladder Wall: 0.3 cm CBD: 0.6 cm Right Kidney: 8.3 x 4.3 x 3.8 cm TRACK LAYER NOTES: *Technical limitations due to patient's pain and large amount of overlying gas Pancreas: Obscured by bowel gas Liver: only visualized intercostally Gallbladder: no evidence of stones as visualized Evidence for sonographic Erazo's sign: no CBD: upper limits of normal Right Kidney: small in size IMPRESSION: No evidence for acute process.
[2023-04-05] MEDS ORDERED: MORPHINE SULFATE 2 MG/ML SYRINGE IVP ONE (20:21)
[2023-04-05 20:28] LABS: Appearance,Urine Clear (Clear); Bilirubin,Urine Negative (Negative); Blood,Urine Negative (Negative); Color,Urine Colorless; Glucose,Urine (UA) Negative (Negative); Ketones,Urine Negative (Negative); Leukocyte Esterase,Urine Negative (Negative); Mucus,Urine Rare /hpf; Nitrite,Urine Negative (Negative); Protein,Urine 1+ (Negative); RBC,Urine 1 /hpf (0-5); Specific Gravity,Urine 1.014 (1.001-1.035); Urobilinogen,Urine <2.0 mg/dL (<2.0); WBC,Urine <1 /hpf (0-5)
[2023-04-05] MEDS ORDERED: HYDROmorphone 0.5 MG/0.5 ML SYRINGE IVP STA (22:10)
[2023-04-05] MEDS ORDERED: ACETAMINOPHEN TAB 325 MG TAB PO PRN (23:08)
[2023-04-05] MEDS ORDERED: NALOXONE 0.4 MG/ML 1 ML VIAL IV PRN (23:08)
[2023-04-05] MEDS ORDERED: MORPHINE SULFATE 4 MG/ML SYRINGE IV PRN (23:08)
[2023-04-05] MEDS ORDERED: KETOROLAC 15 MG/ML 1 ML VIAL IVP PRN (23:08)
[2023-04-05] MEDS ORDERED: SODIUM CHLORIDE 0.9% 1,000 ML IV SCH (23:15)
[2023-04-06 01:20] VITALS: PULSE 98
[2023-04-06 02:23] VITALS: BP 145/99; RESP 16; TEMP 98.3
--- NOTE | 2023-04-07 17:22 | P.HPIM ---
History of Present Illness H&P Date: 04/05/23 (Late entry note) Chief Complaint: Nausea vomiting abdominal pain for day duration 37-year-old male presented emergency department with nausea vomiting abdominal pain, symptoms started about 4 days ago ongoing diarrhea is present in his usual in the upper abdomen, patient has some issues with bladder in the past on specific questioning denies any headache denies any chest pain nausea vomiting, patient is supposed to see Dr. Rosa menezes his active medical problems include d epression, ADHD, hypertension, including CBC chemistry fairly within normal limit however BUN/creatinine is 24/2.31 likely related to acute kidney injury due to intravascular volume depletion dehydration the significant finding was platelet count 147 Review of Systems All systems: negative Past Medical History Past Medical History: Dialysis, Hypertension, Liver Disease, Pneumonia, Renal Disease Additional Past Medical History / Comment(s): ETOH abuse, alcoholic hepatitis, 02/05/17 serology lab +for hepatitis C but pt unawarehas antibodies, B12 deficiency, hx of IVDA-heroin but none for almost 4. yrs, 03-14-2020 last dialysis History of Any Multi-Drug Resistant Organisms: None Reported Past Surgical History: No Surgical Hx Reported Additional Past Surgical History / Comment(s): tracheotomy, PEG tube placement, stent in gall bladder and removed , L arm fistula Past Anesthesia/Blood Transfusion Reactions: No Reported Reaction Past Psychological History: ADD/ADHD Additional Psychological History / Comment(s): Pt resides with his grandparents. Smoking Status: Vaper Past Alcohol Use History: None Reported Additional Past Alcohol Use History / Comment(s): Pt started smoking in 1998 and is a 0.25 ppd smoker. Past Drug Use History: None Reported Additional Drug Use History / Comment(s): CLEAN FROM HEROIN 2015 - Past Family History Father Family Medical History: No Reported History Additional Family Medical History / Comment(s): Father is a heroin addict clean 2-1/2 years now. Mother Family Medical History: Diabetes Mellitus, Hypertension Medications and Allergies Home Medications Medication Instructions Recorded Confirmed Type QUEtiapine [SEROquel] 50 mg PO HS 09/08/19 02/24/23 History Dextroamphetamine/Amphetamine 30 mg PO BID 07/16/22 02/24/23 History [Adderall] Sodium Bicarbonate 650 mg PO BID 07/16/22 02/24/23 History calcitrioL [Calcitriol] 0.25 mcg PO MOTH 07/16/22 02/24/23 History Dapagliflozin Propanediol [Farxiga] 5 mg PO DAILY 08/14/22 02/24/23 History Ergocalciferol [Vitamin D2 (1250 1,250 mcg PO Q30D 08/14/22 02/24/23 History Mcg = 91093 Iu)] Losartan Potassium 50 mg PO DAILY 08/14/22 02/24/23 History Sildenafil Citrate 100 mg PO DAILY PRN 01/05/23 02/24/23 History Ondansetron Odt [Zofran ODT] 4 mg PO Q8HR PRN #20 tab 02/05/23 02/24/23 Rx Naloxone HCl [Narcan] 4 mg NASAL DIRECTED PRN 02/23/23 02/24/23 History methocarbamoL [Robaxin] 1,000 mg PO QID PRN 02/23/23 02/24/23 History oxyCODONE HCL [OxyIR] 5 mg PO Q8H PRN 02/23/23 02/24/23 History Allergies Allergy/AdvReac Type Severity Reaction Status Date / Time No Known Allergies Allergy Verified 04/05/23 18:03 Physical Exam General appearance: alert, in no apparent distress Head exam: Present: atraumatic, normocephalic, normal inspection Eye exam: Present: normal appearance, PERRL, EOMI. Absent: scleral icterus, conjunctival injection, periorbital swelling ENT exam: Present: normal exam, mucous membranes moist Neck exam: Present: normal inspection. Absent: tenderness, meningismus, lymphadenopathy Respiratory exam: Present: normal lung sounds bilaterally. Absent: respiratory distress, wheezes, rales, rhonchi, stridor Cardiovascular Exam: Present: regular rate, normal rhythm, normal heart sounds. Absent: systolic murmur, diastolic murmur, rubs, gallop, clicks GI/Abdominal exam: Present: soft, tenderness (RUQ), normal bowel sounds. Absent: distended, guarding, rebound, rigid Extremities exam: Present: normal inspection, full ROM, normal capillary refill. Absent: tenderness, pedal edema, joint swelling, calf tenderness Back exam: Present: normal inspection Neurological exam: Present: alert, oriented X3 Psychiatric exam: Present: normal affect, normal mood Skin exam: Present: warm, dry, intact, normal color. Absent: rash Results CBC & Chem 7: 11/05/23 19:01 04/05/23 19:01 Thrombosis Risk Factor Assmnt - Choose All That Apply Any of the Below Risk Factors Present?: No Other Risk Factors: No Thrombosis Risk Factor Assessment Level: Very Low Risk Assessment and Plan Assessment: Acute kidney injury Gastroenteritis Intravascular volume depletion dehydration Mood disorder depression ADHD Mild thrombocytopenia Plan: Admitted with Dr. Lee on consult Rehydration with follow and trend renal function and urine output Resume home medicine however hold on losartan for now Repeat labs tomorrow Time with Patient: Greater than 30
--- NOTE | 2023-04-07 17:25 | P.DS ---
Providers Date of admission: 04/06/23 00:20 Expected date of discharge: 04/06/23 Attending physician: Gray Eid Primary care physician: [facility] Course: 37-year-old male presented emergency department with nausea vomiting abdominal pain, symptoms started about 4 days ago ongoing diarrhea is present in his usual in the upper abdomen, patient has some issues with bladder in the past on specific questioning denies any headache denies any chest pain nausea vomiting, patient is supposed to see Dr. Rosa menezes his active medical problems include depression, ADHD, hypertension, including CBC chemistry fairly within normal limit however BUN/creatinine is 24/2.31 likely related to acute kidney injury due to intravascular volume depletion dehydration the significant finding was platelet count 147 Assessment: Acute kidney injury Gastroenteritis Intravascular volume depletion dehydration Mood disorder depression ADHD Mild thrombocytopenia Health Concerns: Patient left AGAINST MEDICAL ADVICE at 3 in the morning Patient Condition at Discharge: Stable Plan - Discharge Summary Discharge Rx Participant: Yes New Discharge Prescriptions: No Action QUEtiapine [SEROquel] 50 mg PO HS Dextroamphetamine/Amphetamine [Adderall] 30 mg PO BID Sodium Bicarbonate 650 mg PO BID Ergocalciferol [Vitamin D2 (1250 Mcg = 00114 Iu)] 1,250 mcg PO Q30D Sildenafil Citrate 100 mg PO DAILY PRN PRN Reason: E.D. Ondansetron Odt [Zofran ODT] 4 mg PO Q8HR PRN #20 tab PRN Reason: Nausea And Vomiting oxyCODONE HCL [OxyIR] 5 mg PO Q8H PRN PRN Reason: Pain Naloxone HCl [Narcan] 4 mg NASAL DIRECTED PRN PRN Reason: overdose calcitrioL [Calcitriol] 0.25 mcg PO MOTH Dapagliflozin Propanediol [Farxiga] 5 mg PO DAILY Losartan Potassium 50 mg PO DAILY methocarbamoL [Robaxin] 1,000 mg PO QID PRN PRN Reason: Muscle Spasm Discharge Medication List QUEtiapine [SEROquel] 50 mg PO HS 09/08/19 [History] Dextroamphetamine/Amphetamine [Adderall] 30 mg PO BID 07/16/22 [History] Sodium Bicarbonate 650 mg PO BID 07/16/22 [History] calcitrioL [Calcitriol] 0.25 mcg PO MOTH 07/16/22 [History] Dapagliflozin Propanediol [Farxiga] 5 mg PO DAILY 08/14/22 [History] Ergocalciferol [Vitamin D2 (1250 Mcg = 81994 Iu)] 1,250 mcg PO Q30D 08/14/22 [History] Losartan Potassium 50 mg PO DAILY 08/14/22 [History] Sildenafil Citrate 100 mg PO DAILY PRN 01/05/23 [History] Ondansetron Odt [Zofran ODT] 4 mg PO Q8HR PRN #20 tab 02/05/23 [Rx] Naloxone HCl [Narcan] 4 mg NASAL DIRECTED PRN 02/23/23 [History] methocarbamoL [Robaxin] 1,000 mg PO QID PRN 02/23/23 [History] oxyCODONE HCL [OxyIR] 5 mg PO Q8H PRN 02/23/23 [History] Follow up Appointment(s)/Referral(s): Maksim Schultz MD [Primary Care Provider] - 1-2 days Discharge Disposition: LEFT AGAINST MEDICAL ADVICE
== END 2023-04-06 03:00 | disposition left against medical advice (07) ==
LOC: EC 17:54 → 4SSUR 04-06 00:20
PROVIDERS: ADMIT Internal Medicine Sleep Medicine; ATTEND Internal Medicine Sleep Medicine
DX: K52.9 Noninfective gastroenteritis and colitis, unspecified (principal); I10 Essential (primary) hypertension; F90.9 Attention-deficit hyperactivity disorder, unspecified type; N17.9 Acute kidney failure, unspecified; E86.0 Dehydration; D69.6 Thrombocytopenia, unspecified; F32.A Depression, unspecified; Z53.29 Procedure and treatment not carried out because of patient's decision for other reasons; Z86.19 Personal history of other infectious and parasitic diseases; Z79.84 Long term (current) use of oral hypoglycemic drugs
CPT/HCPCS: 96376 ×2; 96361; 96374; 96375; 99285; 36415; 80053; 82150; 83690; 85025; 81001; 76705; G0378; J2270 ×3; J2405; J1170

== ENCOUNTER 2023-04-20 20:46 | Emergency (ER) | payer OTHER ==
[2023-04-20] MEDS ORDERED: SODIUM CHLORIDE 0.9% 1,000 ML IV STA (21:04)
[2023-04-20 21:38] LABS: Basophils % (A) 0 %; Eosinophils # (A) 0.3 k/uL (0-0.7); Eosinophils % (A) 5 %; HCT 52.1 % (39.0-53.0); HGB 16.7 gm/dL (13.0-17.5); Hypochromasia Slight; Lymphocytes # (A) 1.1 k/uL (1.0-4.8); Lymphocytes % (A) 20 %; MCH 28.7 pg (25.0-35.0); MCHC 32.1 g/dL (31.0-37.0); MCV 89.2 fL (80.0-100.0); Mean Platelet Volume 7.8; Monocytes # (A) 0.4 k/uL (0-1.0); Monocytes % (A) 8 %; Neutrophils # (A) 3.7 k/uL (1.3-7.7); Neutrophils % (A) 66 %; Platelet Count 181 k/uL (150-450); RBC 5.84 m/uL (4.30-5.90); RDW 13.9 % (11.5-15.5); WBC 5.6 k/uL (3.8-10.6)
--- NOTE | 2023-04-20 21:38 | ED ---
Abdominal Pain HPI - General Chief Complaint: Abdominal Pain Stated Complaint: Abdominal Pain Time Seen by Provider: 04/20/23 20:59 Source: patient Mode of arrival: ambulatory Limitations: no limitations - History of Present Illness Initial Comments: Dex is a 38yo M with PMH of recurrent pancreatitis who presents to the ER today for treatment of severe abdominal pain. Patient reports that this episode of pain began on thursday and has been persistent. He has been able to drink fluids but has not eaten food. He reports diarrhea but no constipation. - Related Data Home Medications Medication Instructions Recorded Confirmed QUEtiapine [SEROquel] 50 mg PO HS 09/08/19 02/24/23 Dextroamphetamine/Amphetamine 30 mg PO BID 07/16/22 02/24/23 [Adderall] Sodium Bicarbonate 650 mg PO BID 07/16/22 02/24/23 calcitrioL [Calcitriol] 0.25 mcg PO MOTH 07/16/22 02/24/23 Dapagliflozin Propanediol [Farxiga] 5 mg PO DAILY 08/14/22 02/24/23 Ergocalciferol [Vitamin D2 (1250 1,250 mcg PO Q30D 08/14/22 02/24/23 Mcg = 28649 Iu)] Losartan Potassium 50 mg PO DAILY 08/14/22 02/24/23 Sildenafil Citrate 100 mg PO DAILY PRN 01/05/23 02/24/23 Naloxone HCl [Narcan] 4 mg NASAL DIRECTED PRN 02/23/23 02/24/23 methocarbamoL [Robaxin] 1,000 mg PO QID PRN 02/23/23 02/24/23 oxyCODONE HCL [OxyIR] 5 mg PO Q8H PRN 02/23/23 02/24/23 Previous Rx's Medication Instructions Recorded Ondansetron Odt [Zofran ODT] 4 mg PO Q8HR PRN #20 tab 02/05/23 Allergies Allergy/AdvReac Type Severity Reaction Status Date / Time No Known Allergies Allergy Verified 04/05/23 18:03 Review of Systems ROS Statement: Those systems with pertinent positive or pertinent negative responses have been documented in the HPI. ROS Other: All systems not noted in ROS Statement are negative. Past Medical History Past Medical History: Dialysis, Hypertension, Liver Disease, Pneumonia, Renal Disease Additional Past Medical History / Comment(s): ETOH abuse, alcoholic hepatitis, 02/05/17 serology lab +for hepatitis C but pt unawarehas antibodies, B12 deficiency, hx of IVDA-heroin but none for almost 4. yrs, 03-14-2020 last dialysis History of Any Multi-Drug Resistant Organisms: None Reported Past Surgical History: No Surgical Hx Reported Additional Past Surgical History / Comment(s): tracheotomy, PEG tube placement, stent in gall bladder and removed , L arm fistula Past Anesthesia/Blood Transfusion Reactions: No Reported Reaction Past Psychological History: ADD/ADHD Smoking Status: Vaper Past Alcohol Use History: None Reported Past Drug Use History: None Reported - Past Family History Father Family Medical History: No Reported History Additional Family Medical History / Comment(s): Father is a heroin addict clean 2-1/2 years now. Mother Family Medical History: Diabetes Mellitus, Hypertension General Exam Limitations: no limitations General appearance: alert Head exam: Present: atraumatic Eye exam: Present: normal appearance ENT exam: Present: mucous membranes dry Neck exam: Present: other (tracheostomy scar) Respiratory exam: Absent: respiratory distress Cardiovascular Exam: Present: regular rate, tachycardia GI/Abdominal exam: Present: soft, tenderness Rectal exam: Present: deferred Extremities exam: Present: normal inspection Neurological exam: Present: alert, oriented X3 Psychiatric exam: Present: normal affect, normal mood Skin exam: Present: warm, dry, intact Course Vital Signs 04/20/23 04/20/23 04/21/23 20:47 22:38 01:43 Temperature 97.4 F L 98.1 F Pulse Rate 129 H 110 H 93 Respiratory 20 20 18 Rate Blood Pressure 192/86 141/93 132/94 O2 Sat by Pulse 99 97 100 Oximetry 04/21/23 04:36 Temperature Pulse Rate 94 Respiratory 19 Rate Blood Pressure 145/96 O2 Sat by Pulse 100 Oximetry Medical Decision Making - Medical Decision Making Was pt. sent in by a medical professional or institution (, PA, TALENT ACQUISITION OPERATIONS MANAGER, urgent care, hospital, or half-way...) When possible be specific @ -No Did you speak to anyone other than the patient for history (EMS, parent, family, police, friend...)? What history was obtained from this source @ -No Did you review nursing and triage notes (agree or disagree)? Why? @ -I reviewed and agree with nursing and triage notes Were old charts reviewed (outside hosp., previous admission, EMS record, old EKG, old radiological studies, urgent care reports/EKG's, half-way records)? Report findings @ -Multiple previous admissions over the past 6 years with identical complaints were reviewed Differential Diagnosis (chest pain, altered mental status, abdominal pain women, abdominal pain men, vaginal bleeding, weakness, fever, dyspnea, syncope, headache, dizziness, GI bleed, back pain, seizure, CVA, palpatations, mental health, musculoskeletal)? @ -Differential Abdominal Pain Men: Appendicitis, cholecystitis, diverticulosis, ischemic bowel, pancreatitis, hepa titis, UTI, gastroenteritis, AAA, incarcerated hernia, bowel obstruction, constipation, inflammatory bowel, hepatitis, peptic ulcer disease, splenic infarction, perforated viscus, testicular torsion, this is not meant to be an all-inclusive list EKG interpreted by me (3pts min.). @ -As above X-rays interpreted by me (1pt min.). @ -None done CT interpreted by me (1pt min.). @ -None done U/S interpreted by me (1pt. min.). @ -None done What testing was considered but not performed or refused? (CT, X-rays, U/S, labs)? Why? @ -CT was considered however there was one done last month for identical symptoms with no acute findings and patient has had multiple CTs for identical complaint with no acute findings What meds were considered but not given or refused? Why? @ -None Did you discuss the management of the patient with other professionals (ivory soto i.e. , PA, TALENT ACQUISITION OPERATIONS MANAGER, lab, RT, psych nurse, long term care social worker, esol teacher assistant, teacher, commissioned fire officer, rn case mgr)? Give summary @ -No Was smoking cessation discussed for >3mins.? @ -No Was critical care preformed (if so, how long)? @ -No Were there social determinants of health that impacted care today? How? (Homelessness, low income, unemployed, alcoholism, drug addiction, transportation, low edu. Level, literacy, decrease access to med. care, correction, rehab)? @ -Alcoholism Was there de-escalation of care discussed even if they declined (Discuss DNR or withdrawal of care, Hospice)? DNR status @ -No What co-morbidities impacted this encounter? (DM, HTN, Smoking, COPD, CAD, Cancer, CVA, ARF, Chemo, Hep., AIDS, mental health diagnosis, sleep apnea, morbid obesity)? @ -None Was patient admitted / discharged? Hospital course, mention meds given and route, prescriptions, significant lab abnormalities, going to OR and other pertinent info. @ -Discharge The patient was seen and evaluated, history is obtained from the patient. Patient with chronic severe abdominal pain. Labs are obtained are at baseline, lipase is not significantly elevated. CT was considered but given the patient has had multiple CTs with no acute findings for identical complaints ultrasound was obtained there is no signs of acute cholecystitis. Patient received a second dose of pain medication and was slightly more comfortable comfortable with plan for discharge home and outpatient management. Undiagnosed new problem with uncertain prognosis? @ -No Drug Therapy requiring intensive monitoring for toxicity (Heparin, Nitro, Insulin, Cardizem)? @ -No Were any procedures done? @ -No Diagnosis/symptom? @ -Chronic abdominal pain Acute, or Chronic, or Acute on Chronic? @ -default Uncomplicated (without systemic symptoms) or Complicated (systemic symptoms)? @ -default Side effects of treatment? @ -No Exacerbation, Progression, or Severe Exacerbation? @ -No Poses a threat to life or bodily function? How? (Chest pain, [place], [place], pneumonia, PE, COPD, DKA, ARF, appy, cholecystitis, CVA, Diverticulitis, Homicidal, Suicidal, threat to staff... and all critical care pts) @ -No - Lab Data Result diagrams: 04/20/23 21:20 04/20/23 21:20 Lab Results 04/20/23 04/20/23 04/20/23 Range/Units 21:20 21:20 21:20 WBC 5.6 (3.8-10.6) k/uL RBC 5.84 (4.30-5.90) m/uL Hgb 16.7 (13.0-17.5) gm/dL Hct 52.1 (39.0-53.0) % MCV 89.2 (80.0-100.0) fL MCH 28.7 (25.0-35.0) pg MCHC 32.1 (31.0-37.0) g/dL RDW 13.9 (11.5-15.5) % Plt Count 181 (150-450) k/uL MPV 7.8 Neutrophils % 66 % Lymphocytes % 20 % Monocytes % 8 % Eosinophils % 5 % Basophils % 0 % Neutrophils # 3.7 (1.3-7.7) k/uL Lymphocytes # 1.1 (1.0-4.8) k/uL Monocytes # 0.4 (0-1.0) k/uL Eosinophils # 0.3 (0-0.7) k/uL Basophils # 0.0 (0-0.2) k/uL Hypochromasia Slight Sodium 137 (137-145) mmol/L Potassium 4.5 (3.5-5.1) mmol/L Chloride 107 (98-107) mmol/L Carbon Dioxide 19 L (22-30) mmol/L Anion Gap 11 mmol/L BUN 23 H (9-20) mg/dL Creatinine 1.73 H (0.66-1.25) mg/dL Est GFR (CKD-EPI)AfAm 57 (>60 ml/min/1.73 sqM) Est GFR (CKD-EPI)NonAf 49 (>60 ml/min/1.73 sqM) Glucose 176 H (74-99) mg/dL Lactic Ac Sepsis Rflx Plasma Lactic Acid Niko 2.3 H* (0.7-2.0) mmol/L Calcium 9.4 (8.4-10.2) mg/dL Total Bilirubin 0.4 (0.2-1.3) mg/dL AST 30 (17-59) U/L ALT 27 (4-49) U/L Alkaline Phosphatase 121 (38-126) U/L Total Protein 7.0 (6.3-8.2) g/dL Albumin 4.0 (3.5-5.0) g/dL Lipase 172 (23-300) U/L Urine Color Urine Appearance (Clear) Urine pH (5.0-8.0) Ur Specific [place] (1.001-1.035) Urine Protein (Negative) Urine Glucose (UA) (Negative) Urine Ketones (Negative) Urine Blood (Negative) Urine Nitrite (Negative) Urine Bilirubin (Negative) Urine Urobilinogen (<2.0) mg/dL Ur Leukocyte Esterase (Negative) Urine RBC (0-5) /hpf Urine WBC (0-5) /hpf 04/20/23 04/20/23 04/21/23 Range/Units 21:46 22:03 00:10 WBC (3.8-10.6) k/uL RBC (4.30-5.90) m/uL Hgb (13.0-17.5) gm/dL Hct (39.0-53.0) % MCV (80.0-100.0) fL MCH (25.0-35.0) pg MCHC (31.0-37.0) g/dL RDW (11.5-15.5) % Plt Count (150-450) k/uL MPV Neutrophils % % Lymphocytes % % Monocytes % % Eosinophils % % Basophils % % Neutrophils # (1.3-7.7) k/uL Lymphocytes # (1.0-4.8) k/uL Monocytes # (0-1.0) k/uL Eosinophils # (0-0.7) k/uL Basophils # (0-0.2) k/uL Hypochromasia Sodium (137-145) mmol/L Potassium (3.5-5.1) mmol/L Chloride (98-107) mmol/L Carbon Dioxide (22-30) mmol/L Anion Gap mmol/L BUN (9-20) mg/dL Creatinine (0.66-1.25) mg/dL Est GFR (CKD-EPI)AfAm (>60 ml/min/1.73 sqM) Est GFR (CKD-EPI)NonAf (>60 ml/min/1.73 sqM) Glucose (74-99) mg/dL Lactic Ac Sepsis Rflx Y Plasma Lactic Acid Niko 0.8 (0.7-2.0) mmol/L Calcium (8.4-10.2) mg/dL Total Bilirubin (0.2-1.3) mg/dL AST (17-59) U/L ALT (4-49) U/L Alkaline Phosphatase (38-126) U/L Total Protein (6.3-8.2) g/dL Albumin (3.5-5.0) g/dL Lipase (23-300) U/L Urine Color Colorless Urine Appearance Clear (Clear) Urine pH 6.5 (5.0-8.0) Ur Specific [place] 1.016 (1.001-1.035) Urine Protein 2+ H (Negative) Urine Glucose (UA) Negative (Negative) Urine Ketones Negative (Negative) Urine Blood Negative (Negative) Urine Nitrite Negative (Negative) Urine Bilirubin Negative (Negative) Urine Urobilinogen <2.0 (<2.0) mg/dL Ur Leukocyte Esterase Negative (Negative) Urine RBC 1 (0-5) /hpf Urine WBC <1 (0-5) /hpf - EKG Data -: EKG Interpreted by Me EKG Comments: EKG was obtained due to tachycardia, EKG obtained at 2104, rate is 129 rhythm is a narrow complex regular tachycardia with P-wave before each QRS is a sinus tachycardia with a rightward axis normal intervals, VT 14 QRS 86 QTC [address] elevations or depressions no evidence of ischemia or infarction. Disposition Clinical Impression: Chronic abdominal pain Disposition: HOME SELF-CARE Condition: Stable Instructions (If sedation given, give patient instructions): Abdominal Pain (ED) Is patient prescribed a controlled substance at d/c from ED?: No Referrals: Maksim Schultz MD [Primary Care Provider] - 1-2 days
[2023-04-20 21:46] LABS: ALT 27 U/L (4-49); AST 30 U/L (17-59); African American GFR (CKD) 57 (>60 ml/min/1.73 sqM); Alkaline Phosphatase 121 U/L (38-126); Anion Gap 11 mmol/L; Blood Urea Nitrogen 23 mg/dL (9-20); Calcium 9.4 mg/dL (8.4-10.2); Carbon Dioxide 19 mmol/L (22-30); Chloride 107 mmol/L (98-107); Glucose 176 mg/dL (74-99); Lipase 172 U/L (23-300); Non-African American GFR(CKD) 49 (>60 ml/min/1.73 sqM); Potassium 4.5 mmol/L (3.5-5.1); Sodium 137 mmol/L (137-145); Total Bilirubin 0.4 mg/dL (0.2-1.3)
[2023-04-20] MEDS ORDERED: MORPHINE SULFATE 4 MG/ML SYRINGE IVP STA (22:24)
[2023-04-20] MEDS ORDERED: ONDANSETRON 4 MG/2 ML VIAL IVP STA (22:24)
[2023-04-20 22:55] LABS: Appearance,Urine Clear (Clear); Bilirubin,Urine Negative (Negative); Blood,Urine Negative (Negative); Color,Urine Colorless; Glucose,Urine (UA) Negative (Negative); Ketones,Urine Negative (Negative); Leukocyte Esterase,Urine Negative (Negative); Nitrite,Urine Negative (Negative); PH, Urine 6.5 (5.0-8.0); Protein,Urine 2+ (Negative); RBC,Urine 1 /hpf (0-5); Specific Gravity,Urine 1.016 (1.001-1.035); Urobilinogen,Urine <2.0 mg/dL (<2.0); WBC,Urine <1 /hpf (0-5)
[2023-04-20 23:02] VITALS: TEMP 98.1
--- NOTE | 2023-04-21 01:38 | US ---
EXAM: US Abdomen Limited, Gallbladder CLINICAL HISTORY: ITS.REASON US Reason: RUQ abdominal pain TECHNIQUE: Real-time ultrasound of the right upper quadrant with image documentation. COMPARISON: CT abdomen and pelvis of 01/12/2023 FINDINGS: Liver: Heterogeneous liver. No focal mass. Gallbladder: Unremarkable. No gallstones. Common bile duct: Common bile duct measures 0.7 cm. No stones. No dilation. Pancreas: Unremarkable as visualized. Right kidney: Right kidney measures 9.2 cm. IMPRESSION: 1. Unremarkable gallbladder. 2. Heterogeneous liver concerning for cirrhosis in correlation with prior CT.
[2023-04-21] MEDS ORDERED: MORPHINE SULFATE 4 MG/ML SYRINGE IVP STA (04:19)
[2023-04-21 04:50] VITALS: BP 145/96; PULSE 94; RESP 19
== END 2023-04-21 05:00 | disposition home or self-care (01) ==
LOC: EC 20:46
DX: G89.29 Other chronic pain (principal); R10.9 Unspecified abdominal pain; R00.0 Tachycardia, unspecified; I10 Essential (primary) hypertension; F90.9 Attention-deficit hyperactivity disorder, unspecified type; F17.290 Nicotine dependence, other tobacco product, uncomplicated; Z79.899 Other long term (current) drug therapy; Z99.2 Dependence on renal dialysis
CPT/HCPCS: 36415; 80053; 83605; 83690; 85025; 81001; 76705; 99285; 96374; 96376; 96361 ×2; J2270

== ENCOUNTER 2023-06-15 09:10 | Emergency (ER) | payer OTHER ==
--- NOTE | 2023-06-15 09:38 | ED ---
General Adult HPI - General Chief complaint: Abdominal Pain Stated complaint: abd pain Time Seen by Provider: 06/15/23 09:20 Source: patient, RN notes reviewed, old records reviewed Mode of arrival: ambulatory Limitations: no limitations - History of Present Illness Initial comments: This is a 38-year-old male who presents to the emergency department stating he has a long-standing history of pancreatitis and gallbladder she's. Patient states they started having right upper quadrant abdominal pain he's been nauseous and having some diarrhea. Patient states that this is the same feeling he has had in the past when he had pancreatitis and gallbladder problems. Patient denies any fever chills per patient denies any chest pain or difficulty breathing. Patient denies any back pain. Patient states he is currently nauseous and does have some diarrhea. - Related Data Home Medications Medication Instructions Recorded Confirmed QUEtiapine [SEROquel] 50 mg PO HS 09/08/19 06/15/23 Dextroamphetamine/Amphetamine 30 mg PO BID 07/16/22 06/15/23 [Adderall] Sodium Bicarbonate 650 mg PO BID 07/16/22 06/15/23 calcitrioL [Calcitriol] 0.25 mcg PO TUTH 07/16/22 06/15/23 Dapagliflozin Propanediol [Farxiga] 5 mg PO DAILY 08/14/22 06/15/23 Ergocalciferol [Vitamin D2 (1250 1,250 mcg PO Q30D 08/14/22 06/15/23 Mcg = 63357 Iu)] Sildenafil Citrate 100 mg PO DAILY PRN 01/05/23 06/15/23 HYDROcodone/APAP 5-325MG [[place] 1 tab PO Q6H PRN 06/15/23 06/15/23 5-325] Losartan-Hctz 50-12.5 mg [Hyzaar 1 tab PO DAILY 06/15/23 06/15/23 50-12.5] Naloxone HCl [Narcan] 4 mg NASAL DIRECTED PRN 06/15/23 06/15/23 Naproxen [Naprosyn] 500 mg PO BID PRN 06/15/23 06/15/23 Allergies Allergy/AdvReac Type Severity Reaction Status Date / Time No Known Allergies Allergy Verified 06/15/23 10:03 Review of Systems ROS Statement: Those systems with pertinent positive or pertinent negative responses have been documented in the HPI. ROS Other: All systems not noted in ROS Statement are negative. Past Medical History Past Medical History: Dialysis, Hypertension, Liver Disease, Pneumonia, Renal Disease Additional Past Medical History / Comment(s): ETOH abuse, alcoholic hepatitis, 02/05/17 serology lab +for hepatitis C but pt unawarehas antibodies, B12 deficiency, hx of IVDA-heroin but none for almost 4. yrs, 03-14-2020 last dialysis History of Any Multi-Drug Resistant Organisms: None Reported Past Surgical History: No Surgical Hx Reported Additional Past Surgical History / Comment(s): tracheotomy, PEG tube placement, stent in gall bladder and removed , L arm fistula Past Anesthesia/Blood Transfusion Reactions: No Reported Reaction Past Psychological History: ADD/ADHD Smoking Status: Vaper Past Alcohol Use History: None Reported Past Drug Use History: None Reported - Past Family History Father Family Medical History: No Reported History Additional Family Medical History / Comment(s): Father is a heroin addict clean 2-1/2 years now. Mother Family Medical History: Diabetes Mellitus, Hypertension General Exam - General Exam Comments Initial Comments: GENERAL: Patient is well-developed and well-nourished. Patient is nontoxic and well-hyd rated and is in mild distress. ENT: Neck is soft and supple. No significant lymphadenopathy is noted. Oropharynx is clear. Moist mucous membranes. Neck has full range of motion without eliciting any pain. EYES: The sclera were anicteric and conjunctiva were pink and moist. Extraocular movements were intact and pupils were equal round and reactive to light. Eyelids were unremarkable. PULMONARY: Unlabored respirations. Good breath sounds bilaterally. No audible rales rhonchi or wheezing was noted. CARDIOVASCULAR: There is a regular rate and rhythm without any murmurs gallops or rubs. ABDOMEN: Patient has epigastric and right upper abdominal pain. SKIN: Skin is clear with no lesions or rashes and otherwise unremarkable. NEUROLOGIC: Patient is alert and oriented x3. Cranial nerves II through XII are grossly intact. Motor and sensory are also intact. Normal speech, volume and content. Symmetrical smile. MUSCULOSKELETAL: Normal extremities with adequate strength and full range of motion. No lower extremity swelling or edema. No calf tenderness. LYMPHATICS: No significant lymphadenopathy is noted PSYCHIATRIC: Normal psychiatric evaluation. Limitations: no limitations Course Vital Signs 01/15/24 01/15/24 09:13 12:02 Temperature 98.4 F 97.5 F L Pulse Rate 107 H 98 Respiratory 20 18 Rate Blood Pressure 135/76 145/87 O2 Sat by Pulse 99 95 Oximetry Medical Decision Making - Medical Decision Making Was pt. sent in by a medical professional or institution (MARIA TERESA Mcfarland, LEAD JAVASCRIPT DEVELOPER, urgent care, hospital, or senior care...) When possible be specific @ -No Did you speak to anyone other than the patient for history (EMS, parent, family, police, friend...)? What history was obtained from this source @ -No Did you review nursing and triage notes (agree or disagree)? Why? @ -I reviewed and agree with nursing and triage notes Were old charts reviewed (outside hosp., previous admission, EMS record, old EKG, old radiological studies, urgent care reports/EKG's, senior care records)? Report findings @ -I reviewed prior charts of her lab work on this patient Differential Diagnosis (chest pain, altered mental status, abdominal pain women, abdominal pain men, vaginal bleeding, weakness, fever, dyspnea, syncope, headache, dizziness, GI bleed, back pain, seizure, CVA, palpatations, mental health, musculoskeletal)? @ -Differential Abdominal Pain Men: Appendicitis, cholecystitis, diverticulosis, ischemic bowel, pancreatitis, h epatitis, UTI, gastroenteritis, AAA, incarcerated hernia, bowel obstruction, constipation, inflammatory bowel, hepatitis, peptic ulcer disease, splenic infarction, perforated viscus, testicular torsion, this is not meant to be an all-inclusive list EKG interpreted by me (3pts min.). @ -As above X-rays interpreted by me (1pt min.). @ -None done CT interpreted by me (1pt min.). @ -None done U/S interpreted by me (1pt. min.). @ -Ultrasound the gallbladder showed no stones and no thickening of the gallbladder wall. What testing was considered but not performed or refused? (CT, X-rays, U/S, labs)? Why? @ -None What meds were considered but not given or refused? Why? @ -None Did you discuss the management of the patient with other professionals (pr ofessionals i.e. MARIA TERESA Mcfarland, LEAD JAVASCRIPT DEVELOPER, lab, RT, psych nurse, criminal justice social worker, hat checker, teacher, hospital chief financial officer, case monitor)? Give summary @ -No Was smoking cessation discussed for >3mins.? @ -No Was critical care preformed (if so, how long)? @ -No Were there social determinants of health that impacted care today? How? (Homelessness, low income, unemployed, alcoholism, drug addiction, transport ation, low edu. Level, literacy, decrease access to med. care, fci, rehab)? @ -No Was there de-escalation of care discussed even if they declined (Discuss DNR or withdrawal of care, Hospice)? DNR status @ -No What co-morbidities impacted this encounter? (DM, HTN, Smoking, COPD, CAD, Cancer, CVA, ARF, Chemo, Hep., AIDS, mental health diagnosis, sleep apnea, morbid obesity)? @ -None Was patient admitted / discharged? Hospital course, mention meds given and route, prescriptions, significant lab abnormalities, going to OR and other pertinent info. @ -Ultrasound did not show any reason for the patient's pain lab work was within normal range. Patient felt considerably better with the Zofran and Dilaudid. Patient will follow-up with his primary medical care doctor. Undiagnosed new problem with uncertain prognosis? @ -No Drug Therapy requiring intensive monitoring for toxicity (Heparin, Nitro, Insulin, Cardizem)? @ -No Were any procedures done? @ -No Diagnosis/symptom? @ -Abdominal pain Acute, or Chronic, or Acute on Chronic? @ -Acute Uncomplicated (without systemic symptoms) or Complicated (systemic symptoms)? @ -Complicated Side effects of treatment? @ -No Exacerbation, Progression, or Severe Exacerbation? @ -No Poses a threat to life or bodily function? How? (Chest pain, [place], [place], pneumonia, PE, COPD, DKA, ARF, appy, cholecystitis, CVA, Diverticulitis, Homicidal, Suicidal, threat to staff... and all critical care pts) @ -No - Lab Data Result diagrams: 06/15/23 10:34 06/15/23 10:34 Lab Results 06/15/23 06/15/23 06/15/23 Range/Units 10:34 10:34 10:34 WBC 5.9 (3.8-10.6) k/uL RBC 5.90 (4.30-5.90) m/uL Hgb 16.5 (13.0-17.5) gm/dL Hct 51.7 (39.0-53.0) % MCV 87.6 (80.0-100.0) fL MCH 27.9 (25.0-35.0) pg MCHC 31.9 (31.0-37.0) g/dL RDW 14.2 (11.5-15.5) % Plt Count 148 L (150-450) k/uL MPV 8.1 Neutrophils % 61 % Lymphocytes % 24 % Monocytes % 7 % Eosinophils % 4 % Basophils % 1 % Neutrophils # 3.6 (1.3-7.7) k/uL Lymphocytes # 1.4 (1.0-4.8) k/uL Monocytes # 0.4 (0-1.0) k/uL Eosinophils # 0.2 (0-0.7) k/uL Basophils # 0.1 (0-0.2) k/uL Sodium 141 (137-145) mmol/L Potassium 4.6 (3.5-5.1) mmol/L Chloride 110 H (98-107) mmol/L Carbon Dioxide 20 L (22-30) mmol/L Anion Gap 11 mmol/L BUN 33 H (9-20) mg/dL Creatinine 2.05 H (0.66-1.25) mg/dL Est GFR (CKD-EPI)AfAm 46 (>60 ml/min/1.73 sqM) Est GFR (CKD-EPI)NonAf 40 (>60 ml/min/1.73 sqM) Glucose 95 (74-99) mg/dL Plasma Lactic Acid Niko 1.0 (0.7-2.0) mmol/L Calcium 9.3 (8.4-10.2) mg/dL Total Bilirubin 0.6 (0.2-1.3) mg/dL AST 39 (17-59) U/L ALT 28 (4-49) U/L Alkaline Phosphatase 106 (38-126) U/L Total Protein 7.7 (6.3-8.2) g/dL Albumin 4.4 (3.5-5.0) g/dL Amylase 107 (30-110) U/L Lipase 196 (23-300) U/L Disposition Clinical Impression: Abdominal pain Disposition: HOME SELF-CARE Condition: Good Instructions (If sedation given, give patient instructions): Abdominal Pain (ED) Is patient prescribed a controlled substance at d/c from ED?: No Referrals: Maksim Schultz MD [Primary Care Provider] - 1-2 days Time of Disposition: 21:08
[2023-06-15] MEDS ORDERED: HYDROmorphone 0.5 MG/0.5 ML SYRINGE IVP STA (09:39)
[2023-06-15] MEDS ORDERED: ONDANSETRON 4 MG/2 ML VIAL IVP STA (09:39)
[2023-06-15 10:48] LABS: Basophils # (A) 0.1 k/uL (0-0.2); Basophils % (A) 1 %; Eosinophils # (A) 0.2 k/uL (0-0.7); Eosinophils % (A) 4 %; HCT 51.7 % (39.0-53.0); HGB 16.5 gm/dL (13.0-17.5); Lymphocytes # (A) 1.4 k/uL (1.0-4.8); Lymphocytes % (A) 24 %; MCH 27.9 pg (25.0-35.0); MCHC 31.9 g/dL (31.0-37.0); MCV 87.6 fL (80.0-100.0); Mean Platelet Volume 8.1; Monocytes # (A) 0.4 k/uL (0-1.0); Monocytes % (A) 7 %; Neutrophils # (A) 3.6 k/uL (1.3-7.7); Neutrophils % (A) 61 %; Platelet Count 148 k/uL (150-450); RDW 14.2 % (11.5-15.5); WBC 5.9 k/uL (3.8-10.6)
--- NOTE | 2023-06-15 11:08 | US ---
EXAMINATION TYPE: US gallbladder DATE OF EXAM: 06/15/2023 COMPARISON: 04/20/2023 CLINICAL INDICATION: Male, 38 years old with history of Right upper quadrant abdominal pain; RUQ pain , nausea/vomiting, patient not NPO. History of pancreatitis. History of GB stent, removed 3 months ag o TECHNIQUE: Multiple sonographic images of the right upper quadrant are obtained. FINDINGS: EXAM MEASUREMENTS: Liver Length: 14.9 cm Gallbladder Wall: 0.3 cm Right Kidney: 8.6 x 4.7 x 4.4 cm CASINO FLOOR WALKER NOTES: Technical limitations due to patient's body habitus and large amount of overlyin g bowel Pancreas: Obscured by bowel gas Liver: Liver is heterogeneous and there is a nodular contour compatible and concordant with recent CT scan. There is an area of reduced echogenicity near the gallbladder fossa stable from previous ultra sound may represent an area of focal fatty sparing. Gallbladder: no evidence of stones Evidence for sonographic Erazo's sign: no CBD: Obscured by overlying bowel gas Right Kidney: no evidence of hydronephrosis IMPRESSION: 1. Correlate for hepatocellular disease. 2. No evidence of gallstones or gallbladder wall thickening.
[2023-06-15 11:09] LABS: ALT 28 U/L (4-49); AST 39 U/L (17-59); African American GFR (CKD) 46 (>60 ml/min/1.73 sqM); Albumin 4.4 g/dL (3.5-5.0); Alkaline Phosphatase 106 U/L (38-126); Amylase 107 U/L (30-110); Anion Gap 11 mmol/L; Blood Urea Nitrogen 33 mg/dL (9-20); Calcium 9.3 mg/dL (8.4-10.2); Carbon Dioxide 20 mmol/L (22-30); Chloride 110 mmol/L (98-107); Glucose 95 mg/dL (74-99); Lipase 196 U/L (23-300); Non-African American GFR(CKD) 40 (>60 ml/min/1.73 sqM); Potassium 4.6 mmol/L (3.5-5.1); Sodium 141 mmol/L (137-145); Total Bilirubin 0.6 mg/dL (0.2-1.3); Total Protein 7.7 g/dL (6.3-8.2)
[2023-06-15 12:24] VITALS: BP 145/87; PULSE 98; RESP 18; TEMP 97.5
== END 2023-06-15 12:04 | disposition home or self-care (01) ==
LOC: EC 09:10
DX: R10.11 Right upper quadrant pain (principal); I10 Essential (primary) hypertension; F17.290 Nicotine dependence, other tobacco product, uncomplicated; Z79.899 Other long term (current) drug therapy; Z99.2 Dependence on renal dialysis
CPT/HCPCS: 36415; 80053; 82150; 83605; 83690; 85025; 76705; 99284; 96374; 96375; J2405; J1170

== ENCOUNTER 2023-06-18 08:26 | Emergency (ER) | payer OTHER ==
[2023-06-18] MEDS ORDERED: SODIUM CHLORIDE 0.9% 1,000 ML IV STA (08:41)
[2023-06-18] MEDS ORDERED: ONDANSETRON 4 MG/2 ML VIAL IVP STA (08:41)
[2023-06-18] MEDS ORDERED: HYDROmorphone 0.5 MG/0.5 ML SYRINGE IVP STA ×2 (08:41→10:38)
[2023-06-18] MEDS ORDERED: PANTOPRAZOLE 40 MG/10 ML VIAL IVP STA (08:41)
--- NOTE | 2023-06-18 08:47 | ED ---
General Adult HPI - General Chief complaint: Abdominal Pain Stated complaint: Abd Pain Time Seen by Provider: 06/18/23 08:31 Source: patient, RN notes reviewed, old records reviewed Mode of arrival: ambulatory Limitations: no limitations - History of Present Illness Initial comments: Patient is a 38-year-old male with past medical history remarkable for the, hypertension, chronic liver disease, pancreatitis, gallbladder stent. Has been having middle and right upper quadrant abdominal pain for over a week with nausea and daily emesis in the morning. Denies any diarrhea today. Presents for further evaluation at this time. Was evaluated on June 15 for similar symptoms and workup was relatively unremarkable. Since her further evaluation and reevaluation after discussed with Dr. Schultz. - Related Data Home Medications Medication Instructions Recorded Confirmed QUEtiapine [SEROquel] 50 mg PO HS 09/08/19 06/18/23 Dextroamphetamine/Amphetamine 30 mg PO BID 07/16/22 06/18/23 [Adderall] Sodium Bicarbonate 650 mg PO BID 07/16/22 06/18/23 calcitrioL [Calcitriol] 0.25 mcg PO TUTH 07/16/22 06/18/23 Dapagliflozin Propanediol [Farxiga] 5 mg PO DAILY 08/14/22 06/18/23 Ergocalciferol [Vitamin D2 (1250 1,250 mcg PO Q30D 08/14/22 06/18/23 Mcg = 48521 Iu)] Sildenafil Citrate 100 mg PO DAILY PRN 01/05/23 06/18/23 HYDROcodone/APAP 5-325MG [Crivitz 1 tab PO Q6H PRN 06/15/23 06/18/23 5-325] Losartan-Hctz 50-12.5 mg [Hyzaar 1 tab PO DAILY 06/15/23 06/18/23 50-12.5] Naloxone HCl [Narcan] 4 mg NASAL DIRECTED PRN 06/15/23 06/18/23 Naproxen [Naprosyn] 500 mg PO BID PRN 06/15/23 06/18/23 Ondansetron Odt [Zofran Odt] 4 mg PO Q6H PRN 06/18/23 06/18/23 Allergies Allergy/AdvReac Type Severity Reaction Status Date / Time No Known Allergies Allergy Verified 06/18/23 11:26 Review of Systems ROS Statement: Those systems with pertinent positive or pertinent negative responses have been documented in the HPI. Review of Systems: CONST: Denies fever EYES: Denies blurry vision ENT: Denies nasal congestion C/V: Denies Chest pain RESP: Denies shortness of breath GI: Endorses abdominal pain : Denies dysuria SKIN: Denies rash. MSK: Denies joint pain. NEURO: Denies headache ROS Other: All systems not noted in ROS Statement are negative. Past Medical History Past Medical History: Dialysis, Hypertension, Liver Disease, Pneumonia, Renal Disease Additional Past Medical History / Comment(s): ETOH abuse, alcoholic hepatitis, 02/05/17 serology lab +for hepatitis C but pt unawarehas antibodies, B12 deficiency, hx of IVDA-heroin but none for almost 4. yrs, 03-14-2020 last dialysis History of Any Multi-Drug Resistant Organisms: None Reported Past Surgical History: No Surgical Hx Reported Additional Past Surgical History / Comment(s): tracheotomy, PEG tube placement, stent in gall bladder and removed , L arm fistula Past Anesthesia/Blood Transfusion Reactions: No Reported Reaction Past Psychological History: ADD/ADHD Smoking Status: Vaper Past Alcohol Use History: None Reported Past Drug Use History: None Reported - Past Family History Father Family Medical History: No Reported History Additional Family Medical History / Comment(s): Father is a heroin addict clean 2-1/2 years now. Mother Family Medical History: Diabetes Mellitus, Hypertension General Exam - General Exam Comments Initial Comments: General: Appears in mild distress. HEAD: Normal with no signs of head trauma. EYES: PERRLA, EOMI, conjunctiva normal, no discharge. ENT: Hearing grossly intact, normal oropharynx. RESPIRATORY: Clear breath sounds bilaterally. No wheezes, rales, or rhonchi. C/V: Regular rate and rhythm. S1 and S2 auscultated, no edema, peripheral pulses 2+ and intact throughout ABD: Abdomen is soft, nondistended. Tender to palpation in the right upper quadrant, epigastric region. No guarding. No peritoneal signs. No rebound tenderness. EXT: Normal range of motion, no obvious deformity SKIN: No rashes or lesions observed on exposed skin. NEURO: Alert and oriented x 4. Limitations: no limitations Course Vital Signs 06/18/23 06/18/23 06/18/23 08:27 09:03 10:25 Temperature 98.1 F 98 F Pulse Rate 100 72 83 Respiratory 18 18 Rate Blood Pressure 145/82 152/102 136/96 O2 Sat by Pulse 98 98 100 Oximetry 06/18/23 14:25 Temperature 97.5 F L Pulse Rate 82 Respiratory 16 Rate Blood Pressure 133/91 O2 Sat by Pulse 99 Oximetry Medical Decision Making - Medical Decision Making Was pt. sent in by a medical professional or institution (, [facility], [employer], urgent care, hospital, or senior living...) When possible be specific @ -No Did you speak to anyone other than the patient for history (EMS, parent, family, police, friend...)? What history was obtained from this source @ -No Did you review nursing and triage notes (agree or disagree)? Why? @ -I reviewed and agree with nursing and triage notes Were old charts reviewed (outside hosp., previous admission, EMS record, old EKG, old radiological studies, urgent care reports/EKG's, senior living records)? Report findings @ -Old charts reviewed Differential Diagnosis (chest pain, altered mental status, abdominal pain women, abdominal pain men, vaginal bleeding, weakness, fever, dyspnea, syncope, headache, dizziness, GI bleed, back pain, seizure, CVA, palpatations, mental health, musculoskeletal)? @ -Differential Abdominal Pain Men: Appendicitis, cholecystitis, diverticulosis, ischemic bowel, pancreatitis, hepatitis, UTI, gastroenteritis, AAA, incarcerated hernia, bowel obstruction, constipation, inflammatory bowel, hepatitis, peptic ulcer disease, splenic infar ction, perforated viscus, testicular torsion, this is not meant to be an all- inclusive list EKG interpreted by me (3pts min.). @ -As above X-rays interpreted by me (1pt min.). @ -None done CT interpreted by me (1pt min.). @ -CT and pelvis revealed no obvious acute findings. Chronic fatty liver present. U/S interpreted by me (1pt. min.). @ -Ultrasound gallbladder reveals no obvious acute process. What testing was considered but not performed or refused? (CT, X-rays, U/S, labs)? Why? @ -None What meds were considered but not given or refused? Why? @ -None Did you discuss the management of the patient with other professionals (professionals i.e. , [facility], [employer], lab, RT, psych nurse, manager social work, pathology laboratory director, teacher, multisensor intelligence officer, outsole caser)? Give summary @ -No Was smoking cessation discussed for >3mins.? @ -No Was critical care preformed (if so, how long)? @ -No Were there social determinants of health that impacted care today? How? (Homelessness, low income, unemployed, alcoholism, drug addiction, transportation, low edu. Level, literacy, decrease access to med. care, senior living, rehab)? @ -No Was there de-escalation of care discussed even if they declined (Discuss DNR or withdrawal of care, Hospice)? DNR status @ -No What co-morbidities impacted this encounter? (DM, HTN, Smoking, COPD, CAD, Cancer, CVA, ARF, Chemo, Hep., AIDS, mental health diagnosis, sleep apnea, morbid obesity)? @ -None Was patient admitted / discharged? Hospital course, mention meds given and route, prescriptions, significant lab abnormalities, going to OR and other pertinent info. @ -Based on the patient's presentation and physical exam, we will obtain an abdominal workup. We'll repeat gallbladder ultrasound likely obtain CT imaging patient is a revisit for similar complaints. He was in agreement this plan. Vital signs are within acceptable limits. Patient received IV fluids, Protonix, Dilaudid, Zofran. Patient's imaging unremarkable. Patient's laboratory studies remarkable for elevated amylase and lipase as he does have a history of chronic pancreatitis. This appears to be acute on chronic pancreatitis. Patient has chronic elevated BUN/creatinine which is at baseline for his CK D. On reevaluation, patient is feeling improved. We discussed his workup. He has acute uncomplicated pancreatitis. He is tolerating oral intake. Symptoms have been ongoing for over a week. I believe it is safer to be discharged home at this time as does he. He will be given symptomatic therapies for home. Recommended follow-up with his PCP. He was in agreement this plan. Strict return precautions discussed. He will continue to attempt follow-up with the specialist at [facility]. I will provide the patient with a prescription for starter pack OGT Zofran, Tylenol 3. I instructed the patient to follow up with their PCP in the next 1-3 days. I explained that the patient should return to the emergency department if they experience any worsening symptoms. Strict return precautions were discussed with the patient. The patient expressed understanding of these instructions. I answered all questions that the patient had. The patient was discharged home in good condition with their prescriptions and follow up information. Undiagnosed new problem with uncertain prognosis? @ -No Drug Therapy requiring intensive monitoring for toxicity (Heparin, Nitro, Insulin, Cardizem)? @ -No Were any procedures done? @ -No Diagnosis/symptom? @ -Acute on chronic pancreatitis Acute, or Chronic, or Acute on Chronic? @ -Acute on chronic Uncomplicated (without systemic symptoms) or Complicated (systemic symptoms)? @ -Complicated Side effects of treatment? @ -none Exacerbation, Progression, or Severe Exacerbation] @ -no Poses a threat to life or bodily function? @ -Unlikely - Lab Data Result diagrams: 06/18/23 09:00 06/18/23 11:16 Lab Results 06/18/23 06/18/23 06/18/23 Range/Units 09:00 09:00 09:00 WBC 3.9 (3.8-10.6) k/uL RBC 5.37 (4.30-5.90) m/uL Hgb 15.2 (13.0-17.5) gm/dL Hct 47.4 (39.0-53.0) % MCV 88.2 (80.0-100.0) fL MCH 28.3 (25.0-35.0) pg MCHC 32.1 (31.0-37.0) g/dL RDW 14.2 (11.5-15.5) % Plt Count 107 L (150-450) k/uL MPV 8.1 Neutrophils % 57 % Lymphocytes % 30 % Monocytes % 7 % Eosinophils % 3 % Basophils % 0 % Neutrophils # 2.2 (1.3-7.7) k/uL Lymphocytes # 1.2 (1.0-4.8) k/uL Monocytes # 0.3 (0-1.0) k/uL Eosinophils # 0.1 (0-0.7) k/uL Basophils # 0.0 (0-0.2) k/uL PT 10.7 (10.0-12.5) sec INR 1.0 (<1.2) APTT 21.9 L (22.0-30.0) sec Sodium (137-145) mmol/L Potassium (3.5-5.1) mmol/L Chloride (98-107) mmol/L Carbon Dioxide (22-30) mmol/L Anion Gap mmol/L BUN (9-20) mg/dL Creatinine (0.66-1.25) mg/dL Est GFR (CKD-EPI)AfAm (>60 ml/min/1.73 sqM) Est GFR (CKD-EPI)NonAf (>60 ml/min/1.73 sqM) Glucose (74-99) mg/dL Plasma Lactic Acid Niko (0.7-2.0) mmol/L Calcium (8.4-10.2) mg/dL Total Bilirubin (0.2-1.3) mg/dL AST (17-59) U/L ALT (4-49) U/L Alkaline Phosphatase (38-126) U/L Total Protein (6.3-8.2) g/dL Albumin (3.5-5.0) g/dL Amylase (30-110) U/L Lipase (23-300) U/L Urine Color Colorless Urine Appearance Clear (Clear) Urine pH 6.5 (5.0-8.0) Ur Specific Gwynn 1.016 (1.001-1.035) Urine Protein 1+ H (Negative) Urine Glucose (UA) Trace H (Negative) Urine Ketones Negative (Negative) Urine Blood Negative (Negative) Urine Nitrite Negative (Negative) Urine Bilirubin Negative (Negative) Urine Urobilinogen <2.0 (<2.0) mg/dL Ur Leukocyte Esterase Negative (Negative) Urine RBC <1 (0-5) /hpf Urine WBC <1 (0-5) /hpf 06/18/23 06/18/23 Range/Units 09:00 11:16 WBC (3.8-10.6) k/uL RBC (4.30-5.90) m/uL Hgb (13.0-17.5) gm/dL Hct (39.0-53.0) % MCV (80.0-100.0) fL MCH (25.0-35.0) pg MCHC (31.0-37.0) g/dL RDW (11.5-15.5) % Plt Count (150-450) k/uL MPV Neutrophils % % Lymphocytes % % Monocytes % % Eosinophils % % Basophils % % Neutrophils # (1.3-7.7) k/uL Lymphocytes # (1.0-4.8) k/uL Monocytes # (0-1.0) k/uL Eosinophils # (0-0.7) k/uL Basophils # (0-0.2) k/uL PT (10.0-12.5) sec INR (<1.2) APTT (22.0-30.0) sec Sodium 142 (137-145) mmol/L Potassium 4.9 (3.5-5.1) mmol/L Chloride 113 H (98-107) mmol/L Carbon Dioxide 23 (22-30) mmol/L Anion Gap 6 mmol/L BUN 46 H (9-20) mg/dL Creatinine 1.90 H (0.66-1.25) mg/dL Est GFR (CKD-EPI)AfAm 51 (>60 ml/min/1.73 sqM) Est GFR (CKD-EPI)NonAf 44 (>60 ml/min/1.73 sqM) Glucose 82 (74-99) mg/dL Plasma Lactic Acid Niko 1.0 (0.7-2.0) mmol/L Calcium 8.7 (8.4-10.2) mg/dL Total Bilirubin 0.4 (0.2-1.3) mg/dL AST 27 (17-59) U/L ALT 23 (4-49) U/L Alkaline Phosphatase 98 (38-126) U/L Total Protein 6.6 (6.3-8.2) g/dL Albumin 3.7 (3.5-5.0) g/dL Amylase 131 H (30-110) U/L Lipase 784 H (23-300) U/L Urine Color Urine Appearance (Clear) Urine pH (5.0-8.0) Ur Specific Gwynn (1.001-1.035) Urine Protein (Negative) Urine Glucose (UA) (Negative) Urine Ketones (Negative) Urine Blood (Negative) Urine Nitrite (Negative) Urine Bilirubin (Negative) Urine Urobilinogen (<2.0) mg/dL Ur Leukocyte Esterase (Negative) Urine RBC (0-5) /hpf Urine WBC (0-5) /hpf - EKG Data -: EKG Interpreted by Me EKG Comments: 12-lead Electrocardiogram Interpretation Note EKG was reviewed and interpreted by myself. 12-lead ECG performed at 0909 is interpreted by me as revealing normal sinus rhythm at a rate of 86 beats per minute. Right axis deviation. RI interval is 131 ms, QRS duration is 104 ms, QTc is 377 ms.. There were no ST or T wave abnormalities to suggest myocardial ischemia or injury. R wave progression across the precordium was satisfactory. By my interpretation this EKG is non-diagnostic for acute ischemia. Disposition Clinical Impression: Pancreatitis Disposition: HOME SELF-CARE Condition: Good Instructions (If sedation given, give patient instructions): Pancreatitis (ED) Is patient prescribed a controlled substance at d/c from ED?: No Referrals: Maksim Schultz MD [Primary Care Provider] - 1-2 days Time of Disposition: 13:59
[2023-06-18 09:33] LABS: Basophils % (A) 0 %; Eosinophils # (A) 0.1 k/uL (0-0.7); Eosinophils % (A) 3 %; HCT 47.4 % (39.0-53.0); HGB 15.2 gm/dL (13.0-17.5); Lymphocytes # (A) 1.2 k/uL (1.0-4.8); Lymphocytes % (A) 30 %; MCH 28.3 pg (25.0-35.0); MCHC 32.1 g/dL (31.0-37.0); MCV 88.2 fL (80.0-100.0); Mean Platelet Volume 8.1; Monocytes # (A) 0.3 k/uL (0-1.0); Monocytes % (A) 7 %; Neutrophils # (A) 2.2 k/uL (1.3-7.7); Neutrophils % (A) 57 %; Platelet Count 107 k/uL (150-450); RBC 5.37 m/uL (4.30-5.90); RDW 14.2 % (11.5-15.5); WBC 3.9 k/uL (3.8-10.6)
[2023-06-18 09:52] LABS: Partial Thromboplastin Time 21.9 sec (22.0-30.0); Prothrombin Time 10.7 sec (10.0-12.5)
--- NOTE | 2023-06-18 10:34 | US ---
EXAMINATION TYPE: US gallbladder DATE OF EXAM: 06/18/2023 COMPARISON: Gallbladder ultrasound 3 days ago CLINICAL INDICATION: Male, 38 years old with history of continued abd pain; GB stent removed x 3 omero hs ago per patient. Pain. TECHNIQUE: Multiple sonographic images of the right upper quadrant are obtained. 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 There is an area of reduced echogenicity near the gallbladder fundus which may repres ent an area of focal fatty sparing Gallbladder: No stones or wall thickening seen Evidence for sonographic Erazo's sign: neg CBD: wnl Right Kidney: No hydronephrosis or masses seen Medial to left lobe of liver, nonvascular hypoechoic area seen of unknown origin or etiology and s uboptimally visualized due to bowel gas = 3.4 x 2.8 x 2.8 cm Suboptimal evaluation of pancreas. Heterogeneous liver redemonstrated consistent with known hepatocel lular disease. This limits evaluation for focal masses. Focal fatty sparing at gallbladder fossa is f elt present. No shadowing mobile gallstones. No biliary dilatation. No right-sided hydronephrosis. IMPRESSION: No gallstones or ultrasound evidence for acute cholecystitis.
[2023-06-18 11:43] LABS: Appearance,Urine Clear (Clear); Bilirubin,Urine Negative (Negative); Blood,Urine Negative (Negative); Color,Urine Colorless; Glucose,Urine (UA) Trace (Negative); Ketones,Urine Negative (Negative); Leukocyte Esterase,Urine Negative (Negative); Nitrite,Urine Negative (Negative); PH, Urine 6.5 (5.0-8.0); Protein,Urine 1+ (Negative); RBC,Urine <1 /hpf (0-5); Specific Gravity,Urine 1.016 (1.001-1.035); Urobilinogen,Urine <2.0 mg/dL (<2.0); WBC,Urine <1 /hpf (0-5)
[2023-06-18 12:09] LABS: ALT 23 U/L (4-49); AST 27 U/L (17-59); African American GFR (CKD) 51 (>60 ml/min/1.73 sqM); Albumin 3.7 g/dL (3.5-5.0); Alkaline Phosphatase 98 U/L (38-126); Amylase 131 U/L (30-110); Anion Gap 6 mmol/L; Blood Urea Nitrogen 46 mg/dL (9-20); Calcium 8.7 mg/dL (8.4-10.2); Carbon Dioxide 23 mmol/L (22-30); Chloride 113 mmol/L (98-107); Glucose 82 mg/dL (74-99); Lipase 784 U/L (23-300); Non-African American GFR(CKD) 44 (>60 ml/min/1.73 sqM); Potassium 4.9 mmol/L (3.5-5.1); Sodium 142 mmol/L (137-145); Total Bilirubin 0.4 mg/dL (0.2-1.3); Total Protein 6.6 g/dL (6.3-8.2)
--- NOTE | 2023-06-18 13:15 | CT ---
EXAMINATION TYPE: CT abdomen pelvis w con DATE OF EXAM: 06/18/2023 COMPARISON: Most recent prior CT March 07, 2023 HISTORY: RUQ abdominal pain, N,D.hx of liver disease and renal disease CT DLP: 1118.4 mGycm, Automated Exposure Control for Dose Reduction was Utilized. CONTRAST: CT scan of the abdomen and pelvis is performed with oral and with IV Contrast, patient injected with 70ml mL of Isovue 300. FINDINGS: LUNG BASES: No significant abnormality is appreciated. LIVER/GB: Liver remains diffusely low dense consistent with fatty infiltrative hepatocellular disease . No surrounding ascites. No biliary dilatation. PANCREAS: No significant abnormality is seen. SPLEEN: Splenomegaly is seen measuring 16.0 cm long axis image 21. ADRENALS: No significant abnormality is seen. KIDNEYS: No significant abnormality is seen. BOWEL: Mild fecal prominence in the right colon. No abnormal small or large bowel dilatation. PROSTATE/SEMINAL VESICLES: No gross abnormality seen. LYMPH NODES: No greater than 1cm abdominal or pelvic lymph nodes are appreciated. OSSEOUS STRUCTURES: No significant abnormality is seen. OTHER: No significant additional abnormality is seen. IMPRESSION: Diffuse fatty infiltrative hepatocellular disease redemonstrated. Splenomegaly redemonstr ated. No new ascites is seen. No suspicious new or acute finding identified on noncontrast study.
[2023-06-18] MEDS ORDERED: ACET/COD 300 MG/30 MG STARTER PACK 6 TAB BTL PO STA (14:05)
[2023-06-18] MEDS ORDERED: ONDANSETRON 4 MG ODT STARTER PACK 2 TAB BTL PO STA (14:05)
[2023-06-18 14:38] VITALS: BP 133/91; PULSE 82; RESP 16; TEMP 97.5
== END 2023-06-18 14:25 | disposition home or self-care (01) ==
LOC: EC 08:26
DX: K85.90 Acute pancreatitis without necrosis or infection, unspecified (principal); I10 Essential (primary) hypertension; F17.290 Nicotine dependence, other tobacco product, uncomplicated; Z79.899 Other long term (current) drug therapy; Z99.2 Dependence on renal dialysis
CPT/HCPCS: 36415; 93005; 80053; 82150; 83605; 83690; 85025; 85610; 85730; 81001; 76705; 74177; 99284; 96374; 96375 ×2; 96376; 96361; J2405; S0119; C9113; J1170; Q9967

== ENCOUNTER 2023-07-04 12:27 | Observation (INO) | payer OTHER ==
--- NOTE | 2023-07-04 12:51 | ED ---
Abdominal Pain HPI - General Chief Complaint: Abdominal Pain Stated Complaint: pancreatitis Time Seen by Provider: 07/04/23 12:40 Source: patient, RN notes reviewed Mode of arrival: ambulatory Limitations: no limitations - History of Present Illness Initial Comments: This is a 38 year old male who presents to the emergency department for upper abdominal pain, nausea, and vomiting. Patient is well known to this emergency department for recurrent bouts of abdominal pain and pancreatitis. States that since he was discharged from the emergency department on 06/18 for mild pancreatitis, he has not gotten any better. He continues to have severe abdominal pain, nausea, vomiting, and diarrhea. He longer has the gallbladder stent and the plan is to eventually remove the gallbladder, as that is thought to be the cause of his recurrent symptoms. States that he has seen Dr. Maradiaga, however they have not determined a date for surgery. Patient is hoping to be admitted for symptom control. MD Complaint: abdominal pain - Related Data Home Medications Medication Instructions Recorded Confirmed QUEtiapine [SEROquel] 50 mg PO HS 09/08/19 07/04/23 Dextroamphetamine/Amphetamine 30 mg PO BID 07/16/22 07/04/23 [Adderall] Sodium Bicarbonate 650 mg PO BID 07/16/22 07/04/23 calcitrioL 0.25 mcg PO TUTH 07/16/22 07/04/23 Dapagliflozin Propanediol [Farxiga] 5 mg PO DAILY 08/14/22 07/04/23 Ergocalciferol [Vitamin D2 (1250 1,250 mcg PO Q30D 08/14/22 07/04/23 Mcg = 10080 Iu)] Sildenafil Citrate 100 mg PO DAILY PRN 01/05/23 07/04/23 HYDROcodone/APAP 5-325MG [[place] 1 tab PO Q6H PRN 06/15/23 07/04/23 5-325] Losartan-Hctz 50-12.5 mg [Hyzaar 1 tab PO DAILY 06/15/23 07/04/23 50-12.5] Naloxone HCl [Narcan] 4 mg NASAL ONCE PRN 06/15/23 07/04/23 Naproxen [Naprosyn] 500 mg PO BID PRN 06/15/23 07/04/23 Ondansetron Odt [Zofran Odt] 4 mg PO Q6H PRN 06/18/23 07/04/23 Allergies Allergy/AdvReac Type Severity Reaction Status Date / Time No Known Allergies Allergy Verified 07/05/23 01:12 Review of Systems ROS Statement: Those systems with pertinent positive or pertinent negative responses have been documented in the HPI. ROS Other: All systems not noted in ROS Statement are negative. Past Medical History Past Medical History: Dialysis, Hypertension, Liver Disease, Pneumonia, Renal Disease Additional Past Medical History / Comment(s): ETOH abuse, alcoholic hepatitis, 02/05/17 serology lab +for hepatitis C but pt unawarehas antibodies, B12 deficiency, hx of IVDA-heroin but none for almost 4. yrs, 03-14-2019 last dialysis History of Any Multi-Drug Resistant Organisms: None Reported Past Surgical History: No Surgical Hx Reported Additional Past Surgical History / Comment(s): tracheotomy, PEG tube placement, stent in gall bladder and removed , L arm fistula Past Anesthesia/Blood Transfusion Reactions: No Reported Reaction Past Psychological History: ADD/ADHD Smoking Status: Vaper Past Alcohol Use History: None Reported Past Drug Use History: None Reported - Past Family History Father Family Medical History: No Reported History Additional Family Medical History / Comment(s): Father is a heroin addict clean 2-1/2 years now. Mother Family Medical History: Diabetes Mellitus, Hypertension General Exam - General Exam Comments Initial Comments: Visual Physical Exam Vital signs reviewed General: Well-appearing, nontoxic, no acute distress. Head: Normocephalic, atraumatic Eyes: PERRLA, EOMI ENT: Airway patent Chest: Nonlabored breathing Skin: No visual rash, normal skin tone Neuro: Alert and oriented 3 Musculoskeletal: No gross abnormalities Limitations: no limitations General appearance: alert, in distress Head exam: Present: atraumatic, normocephalic, normal inspection Respiratory exam: Present: normal lung sounds bilaterally. Absent: respiratory distress, wheezes, rales, rhonchi, stridor Cardiovascular Exam: Present: regular rate, normal rhythm, normal heart sounds. Absent: systolic murmur, diastolic murmur, rubs, gallop, clicks GI/Abdominal exam: Present: soft, tenderness (Upper abdomen), normal bowel sounds. Absent: distended Neurological exam: Present: alert, oriented X3, CN II-XII intact Psychiatric exam: Present: normal affect, normal mood Skin exam: Present: warm, dry, intact, normal color. Absent: rash Course Vital Signs 07/04/23 07/04/23 07/04/23 12:37 16:50 18:21 Temperature 98.4 F 98.2 F Pulse Rate 114 H 88 103 H Respiratory 17 18 18 Rate Blood Pressure 148/94 154/78 151/99 O2 Sat by Pulse 100 100 100 Oximetry 07/04/23 19:39 Temperature Pulse Rate 87 Respiratory 17 Rate Blood Pressure 163/97 O2 Sat by Pulse 99 Oximetry Medical Decision Making - Medical Decision Making This is a 38 year old male who presents to the emergency department for abdominal pain. Was pt. sent in by a medical professional or institution? @ -No Did you speak to anyone other than the patient for history? @ -No Did you review nursing and triage notes? @ -Yes, and I agree, it is accurate with regards to the patient's symptoms. Were old charts reviewed? @ -Gallbladder US from 06/18/23 demonstrating no gallstones or other acute pro cess, however examination was limited by bowel gas. CT scan of the abdomen/pelvis from 06/18/23 reviewed as well which redemonstrated diffuse fatty infiltrative hepatocellular disease and splenomegaly. No acute findings were identified. Differential Diagnosis? @ -Differential Abdominal Pain Men: Appendicitis, cholecystitis, diverticulosis, ischemic bowel, pancreatitis, hepatitis, UTI, gastroenteritis, AAA, incarcerated hernia, bowel obstruction, constipation, inflammatory bowel, hepatitis, peptic ulcer disease, splenic infarction, perforated viscus, testicular torsion, this is not meant to be an all-inclusive list EKG interpreted by me (3pts min.)? @ -Not obtained X-rays interpreted by me (1pt min.)? @ -Not obtained CT interpreted by me (1pt min.)? @ -Not obtained U/S interpreted by me (1pt. min.)? @ -Gallbladder US obtained. My interpretation identifies no evidence of cholelithiasis. What testing was considered but not performed? (CT, X-rays, U/S, labs)? Why? @ -None What meds were considered but not given? Why? @ -None Did you discuss the management of the patient with other professionals? @ -Yes, Dr. Schultz, who accepts the patient for admission. Did you reconcile home meds? @ -No Was smoking cessation discussed for >3mins.? @ -No Was critical care preformed (if so, how long)? @ -No Were there social determinants of health that impacted care today? How? (Homelessness, low income, unemployed, alcoholism, drug addiction, transportation, low edu. Level, literacy, decrease access to med. care, prison, rehab)? @ -No Was there de-escalation of care discussed even if they declined? (Discuss DNR or withdrawal of care, Hospice)? @ -No What co-morbidities impacted this encounter? (DM, HTN, Smoking, COPD, CAD, Cancer, CVA, Hep., AIDS, mental health diagnosis, sleep apnea, morbid obesity)? @ -Chronic pancreatitis, renal disease, liver disease Was patient admitted / discharged? @ -Admitted. Lab work obtained revealing poor renal function, however this is stable when compared with prior values. Lipase elevated at 651. This is improved when compared with 06/18 when it was 784. We did repeat a gallbladder US which revealed no acute process. Patient continued to be in severe pain and was concerned about going home given the prolonged duration of this episode and inability to control symptoms at home. Patient subsequently admitted to medicine for intractable abdominal pain and acute on chronic pancreatitis. Consult placed for general surgery. Undiagnosed new problem with uncertain prognosis? @ -None Drug Therapy requiring intensive monitoring for toxicity (Heparin, Nitro, Insulin, Cardizem)? @ -None Were any procedures done? @ -None Diagnosis/symptom? @ -Intractable abdominal pain Acute, or Chronic, or Acute on Chronic? @ -Acute Uncomplicated (without systemic symptoms) or Complicated (systemic symptoms)? @ -Complicated Side effects of treatment? @ -None Exacerbation, Progression, or Severe Exacerbation] @ -Not applicable Poses a threat to life or bodily function? @ -Yes, this is limiting his ability to function. Diagnosis/symptom? @ -Chronic pancreatitis Acute, or Chronic, or Acute on Chronic? @ -Acute on chronic Uncomplicated (without systemic symptoms) or Complicated (systemic symptoms)? @ -Complicated Side effects of treatment? @ -None Exacerbation, Progression, or Severe Exacerbation] @ -Exacerbation Poses a threat to life or bodily function? @ -The pain is having an impact on his ability to function. This case was discussed in detail with the attending ED physician, Dr. Woodruff. Presentation, findings, and treatment plan discussed in detail as well. - Lab Data Result diagrams: 07/04/23 12:42 07/04/23 12:42 Lab Results 07/04/23 07/04/23 07/04/23 Range/Units 12:42 12:42 12:42 WBC 5.1 (3.8-10.6) k/uL RBC 5.75 (4.30-5.90) m/uL Hgb 16.1 (13.0-17.5) gm/dL Hct 50.8 (39.0-53.0) % MCV 88.4 (80.0-100.0) fL MCH 28.1 (25.0-35.0) pg MCHC 31.7 (31.0-37.0) g/dL RDW 14.2 (11.5-15.5) % Plt Count 140 L (150-450) k/uL MPV 8.4 Neutrophils % 69 % Lymphocytes % 19 % Monocytes % 8 % Eosinophils % 3 % Basophils % 1 % Neutrophils # 3.5 (1.3-7.7) k/uL Lymphocytes # 1.0 (1.0-4.8) k/uL Monocytes # 0.4 (0-1.0) k/uL Eosinophils # 0.2 (0-0.7) k/uL Basophils # 0.0 (0-0.2) k/uL Sodium 138 (137-145) mmol/L Potassium 5.2 H (3.5-5.1) mmol/L Chloride 110 H (98-107) mmol/L Carbon Dioxide 20 L (22-30) mmol/L Anion Gap 8 mmol/L BUN 33 H (9-20) mg/dL Creatinine 1.98 H (0.66-1.25) mg/dL Est GFR (CKD-EPI)AfAm 48 (>60 ml/min/1.73 sqM) Est GFR (CKD-EPI)NonAf 42 (>60 ml/min/1.73 sqM) Glucose 98 (74-99) mg/dL Plasma Lactic Acid Niko 1.1 (0.7-2.0) mmol/L Calcium 9.5 (8.4-10.2) mg/dL Total Bilirubin 0.6 (0.2-1.3) mg/dL AST 34 (17-59) U/L ALT 26 (4-49) U/L Alkaline Phosphatase 98 (38-126) U/L Total Protein 7.7 (6.3-8.2) g/dL Albumin 4.4 (3.5-5.0) g/dL Amylase 159 H (30-110) U/L Lipase 651 H (23-300) U/L - Radiology Data Radiology results: report reviewed, image reviewed Disposition Clinical Impression: Intractable abdominal pain, Chronic pancreatitis Disposition: ADMITTED IP TO THIS [facility] Condition: Stable Time of Disposition: 16:34
[2023-07-04 13:41] LABS: Basophils % (A) 1 %; Eosinophils # (A) 0.2 k/uL (0-0.7); Eosinophils % (A) 3 %; HCT 50.8 % (39.0-53.0); HGB 16.1 gm/dL (13.0-17.5); Lymphocytes % (A) 19 %; MCH 28.1 pg (25.0-35.0); MCHC 31.7 g/dL (31.0-37.0); MCV 88.4 fL (80.0-100.0); Mean Platelet Volume 8.4; Monocytes # (A) 0.4 k/uL (0-1.0); Monocytes % (A) 8 %; Neutrophils # (A) 3.5 k/uL (1.3-7.7); Neutrophils % (A) 69 %; Platelet Count 140 k/uL (150-450); RBC 5.75 m/uL (4.30-5.90); RDW 14.2 % (11.5-15.5); WBC 5.1 k/uL (3.8-10.6)
[2023-07-04 13:54] LABS: ALT 26 U/L (4-49); AST 34 U/L (17-59); African American GFR (CKD) 48 (>60 ml/min/1.73 sqM); Albumin 4.4 g/dL (3.5-5.0); Alkaline Phosphatase 98 U/L (38-126); Amylase 159 U/L (30-110); Anion Gap 8 mmol/L; Blood Urea Nitrogen 33 mg/dL (9-20); Calcium 9.5 mg/dL (8.4-10.2); Carbon Dioxide 20 mmol/L (22-30); Chloride 110 mmol/L (98-107); Glucose 98 mg/dL (74-99); Lipase 651 U/L (23-300); Non-African American GFR(CKD) 42 (>60 ml/min/1.73 sqM); Potassium 5.2 mmol/L (3.5-5.1); Sodium 138 mmol/L (137-145); Total Bilirubin 0.6 mg/dL (0.2-1.3); Total Protein 7.7 g/dL (6.3-8.2)
[2023-07-04] MEDS: ONDANSETRON 4 MG/2 ML VIAL IVP STA (15:37)
[2023-07-04] MEDS: PANTOPRAZOLE 40 MG/10 ML VIAL IVP STA (15:37)
[2023-07-04] MEDS: SODIUM CHLORIDE 0.9% 2,000 ML IV STA (15:37)
[2023-07-04] MEDS: HYDROmorphone 1 MG/ML 1 ML SYRINGE IVP STA (15:38)
--- NOTE | 2023-07-04 16:18 | US ---
EXAMINATION TYPE: US gallbladder DATE OF EXAM: 07/04/2023 COMPARISON: NONE CLINICAL INDICATION: Male, 38 years old with history of Epigastric pain; h/o biliary stenting, remove d 3 months ago, pancreatitis, CKD stage 3b, h/o addiction, for 6 months patient has had extreme RUQ p ain and was told his GB needs to come out yet no doctor will remove it. TECHNIQUE: Multiple sonographic images of the right upper quadrant are obtained. FINDINGS: EXAM MEASUREMENTS: Liver Length: 14.5 cm Gallbladder Wall: 0.2 cm CBD: 0.6 cm Right Kidney: 8.6 x 3.9 x 5.1 cm TRANSIT PLANNING MANAGER NOTES:intercostal imaging due to bowel gas Pancreas: not seen due to gas Liver: heterogeneous with h/o focal fatty Gallbladder: wnl Evidence for sonographic Erazo's sign: YES CBD: wnl Right Kidney: small in size IMPRESSION: 1. Echogenic liver consistent with fatty infiltration. 2. No gallbladder wall thickening, gallstones or pericholecystic fluid but the sonographic Erazo sig n is reported as positive 3. Small echogenic kidney consistent with the history of chronic kidney disease. 4. No biliary ductal dilatation. 5. Pancreas not evaluated due to bowel gas.
[2023-07-04] MEDS ORDERED: ONDANSETRON 4 MG/2 ML VIAL IVP PRN (16:32)
[2023-07-04] MEDS ORDERED: ACETAMINOPHEN TAB 325 MG TAB PO PRN (16:32)
[2023-07-04] MEDS ORDERED: HYDROmorphone 0.5 MG/0.5 ML SYRINGE IVP PRN (16:32)
[2023-07-04] MEDS ORDERED: NALOXONE 0.4 MG/ML 1 ML VIAL IV PRN (16:32)
[2023-07-04] MEDS: HYDROmorphone 1 MG/ML 1 ML SYRINGE IVP PRN (16:48)
[2023-07-04] MEDS: SODIUM CHLORIDE 0.9% 1,000 ML IV SCH (18:25)
[2023-07-04] MEDS ORDERED: NAPROXEN 250 MG TAB PO PRN (19:44)
[2023-07-04] MEDS ORDERED: NON FORMULARY DRUG (Naloxone Hcl [Narcan] 4 MG Each) NASAL PRN (19:44)
[2023-07-04] MEDS ORDERED: ONDANSETRON ODT 4 MG TAB PO PRN (19:44)
[2023-07-04] MEDS: ERGOCALCIFEROL 1,250 MCG (50,000 IU) CAPSULE PO SCH (20:46)
[2023-07-04] MEDS: HYDROcodone/APAP 5-325MG 1 EACH TAB PO PRN (20:46)
[2023-07-04] MEDS: QUEtiapine 50 MG TAB PO SCH (20:46)
[2023-07-04] MEDS: SODIUM BICARBONATE TAB 650 MG TAB PO SCH (20:46)
[2023-07-04 20:47] VITALS: BP 153/92; PULSE 105; RESP 16; TEMP 98.4
[2023-07-04] MEDS: NON FORMULARY DRUG (Dextroamphetamine/Amphetamine [Adderall] 30 MG Tablet) PO SCH (20:47)
[2023-07-04] MEDS: KETOROLAC 15 MG/ML 1 ML VIAL IVP SCH (23:28)
[2023-07-05] MEDS ORDERED: KETOROLAC 15 MG/ML 1 ML VIAL IM SCH
[2023-07-05] MEDS ORDERED: DAPAGLIFLOZIN PROPANEDIOL 5 MG TABLET PO SCH (09:00)
[2023-07-05] MEDS ORDERED: LOSARTAN-HCTZ 50-12.5 MG 1 EACH TAB PO SCH (09:00)
[2023-07-05] MEDS ORDERED: PANTOPRAZOLE 40 MG/10 ML VIAL IV SCH (09:00)
--- NOTE | 2023-07-26 21:22 | HP ---
HISTORY AND PHYSICAL HISTORY OF PRESENT ILLNESS: A 38-year-old white male came in with abdominal pain, nausea, vomiting. He has a history of abdominal pain, chronic pancreatitis. He has had recurrent admissions for pancreatitis. He has some severe abdominal pain, nausea, vomiting, diarrhea. He took his gallbladder stents out down at [facility], is waiting for somebody to take out his gallbladder. Admitted for pain control and surgical procedure. MEDICATIONS: Reviewed include, 1. Seroquel 50 at bedtime. 2. Adderall 30 b.i.d. 3. Sodium bicarbonate 650 b.i.d. 4. Calcitriol 0.25 weekly. 5. Farxiga 5 mg daily. 6. Vitamin D 1250 mg weekly. 7. Sildenafil 100 mg daily. 8. [place] 5/325 q.6h p.r.n. 9. Losartan/HCTZ 50/12.5 daily. 10.Naprosyn 500 b.i.d. 11.Zofran 4 mg q.6h. REVIEW OF SYSTEMS: Fourteen point review of systems otherwise negative. PAST MEDICAL HISTORY: Chronic renal disease, liver disease, pneumonia, renal disease. PAST SURGICAL HISTORY: Tracheostomy, PEG tube, stent, gallbladder, left arm fistula. FAMILY HISTORY: Sister, ADHD. Father, heroin addict. Mother, diabetes mellitus, hypertension. PHYSICAL EXAMINATION: VITAL SIGNS: Temp 98.4, pulse 103 to 114, blood pressure 140s to 150s over 70s to 90s, O2 of 100%, respiratory rate 16 to 18. CARDIOVASCULAR: S1, S2. LUNGS: Transmitted upper airway sounds. HEMATOLOGY: Negative Homans. PSYCH: Fair mood and affect. NEUROLOGIC: Alert and oriented x3. GI: Soft, tender to palpation, right upper quadrant. No guarding. ASSESSMENT: Acute cholecystitis, acute pancreatitis, hypertension acceleration, chronic kidney disease. Have surgical consultation. Broad-spectrum antibiotics. Surgical recommendations. MMODL / IJN: [id number] /
== END 2023-07-05 | disposition left against medical advice (07) ==
LOC: EC 12:27 → 6NMEDSUR 18:18
PROVIDERS: ADMIT Family Medicine; ATTEND Family Medicine
DX: K81.0 Acute cholecystitis (principal); K85.90 Acute pancreatitis without necrosis or infection, unspecified; K86.1 Other chronic pancreatitis; K70.10 Alcoholic hepatitis without ascites; I12.9 Hypertensive chronic kidney disease with stage 1 through stage 4 chronic kidney disease, or unspecified chronic kidney disease; E11.22 Type 2 diabetes mellitus with diabetic chronic kidney disease; N18.9 Chronic kidney disease, unspecified; B19.20 Unspecified viral hepatitis C without hepatic coma; E53.8 Deficiency of other specified B group vitamins; F17.290 Nicotine dependence, other tobacco product, uncomplicated; Z79.84 Long term (current) use of oral hypoglycemic drugs; Z53.29 Procedure and treatment not carried out because of patient's decision for other reasons; Z87.898 Personal history of other specified conditions
CPT/HCPCS: 96376 ×2; 96361; 96374; 96375; 99285; 36415; 80053; 82150; 83605; 83690; 85025; 76705; G0378; J2405; J1170; C9113

== ENCOUNTER 2023-07-05 01:08 | Observation (INO) | payer OTHER ==
[2023-07-05] MEDS ORDERED: MAG HYDROX/AL HYDROX/SIMETH 30 ML CUP PO PRN (01:18)
[2023-07-05] MEDS ORDERED: NALOXONE 0.4 MG/ML 1 ML VIAL IV PRN (01:18)
[2023-07-05] MEDS: SODIUM CHLORIDE 0.9% 1,000 ML IV SCH (02:57)
[2023-07-05] MEDS: MORPHINE SULFATE 4 MG/ML SYRINGE IV PRN (02:57)
[2023-07-05] MEDS: HYDROmorphone 0.5 MG/0.5 ML SYRINGE IVP PRN (05:57)
[2023-07-05] MEDS ORDERED: ONDANSETRON ODT 4 MG TAB PO PRN (08:53)
[2023-07-05] MEDS ORDERED: NON FORMULARY DRUG (Sildenafil Citrate [Sildenafil Citrate] 100 MG Tablet) PO PRN (08:53)
[2023-07-05] MEDS ORDERED: NON FORMULARY DRUG (Naloxone Hcl [Narcan] 4 MG Each) NASAL PRN (08:53)
[2023-07-05] MEDS ORDERED: NAPROXEN 250 MG TAB PO PRN (08:53)
[2023-07-05] MEDS: NON FORMULARY DRUG (Dextroamphetamine/Amphetamine [Adderall] 30 MG Tablet) PO SCH (09:36)
[2023-07-05] MEDS: DAPAGLIFLOZIN PROPANEDIOL 5 MG TABLET PO SCH (10:10)
[2023-07-05] MEDS: SODIUM BICARBONATE TAB 650 MG TAB PO SCH (10:10)
[2023-07-05] MEDS: LOSARTAN-HCTZ 50-12.5 MG 1 EACH TAB PO SCH (10:11)
[2023-07-05] MEDS: FAMOTIDINE 20 MG TAB PO SCH (10:11)
--- NOTE | 2023-07-05 10:31 | P.GSCN ---
History of Present Illness Consult date: 07/05/23 Reason for Consult: Chronic cholecystitis History of present illness: 38-year-old male presented to the ER yesterday with abdominal pain. Mostly right upper quadrant. Has been going on for what the patient states is several years. He has a very complicated history. He apparently was on the ventilator for about 3 months in 2019. At the time patient had liver failure and etiology for his issues somewhat unclear. Patient states he was drinking heavily at the time. He had pancreatitis. He had liver failure as a result of that. He said he was told he had sludge in the past. He had a trans papillary gallbladder stent placed at [facility] at the time. This was recently removed in January at [facility]. Patient states he was told to follow-up with a surgeon for cholecystectomy. Patient complains of chronic reflux. Came to the hospital again with pain. Was found to have mild elevation in amylase and lipase. CAT scan done recently shows fatty infiltration of the liver. No biliary dilation. No obvious gallbladder pathology. Ultrasound did not show gallstones on yesterday's study. Review of Systems The patient denies any acute changes in vision or hearing, no dysphagia or odynophagia, no chest pain or shortness of breath, no dysuria or hematuria, no headache, no runny nose, no rectal bleeding or melena, no unexplained weight loss Past Medical History Past Medical History: Dialysis, Hypertension, Liver Disease, Pneumonia, Renal Disease Additional Past Medical History / Comment(s): ETOH abuse, alcoholic hepatitis, 02/05/17 serology lab +for hepatitis C but pt unawarehas antibodies, B12 deficiency, hx of IVDA-heroin but none for almost 4. yrs, 03-14-2020 last dialysis History of Any Multi-Drug Resistant Organisms: None Reported Past Surgical History: No Surgical Hx Reported Additional Past Surgical History / Comment(s): tracheotomy, PEG tube placement, stent in gall bladder and removed , L arm fistula Past Anesthesia/Blood Transfusion Reactions: No Reported Reaction Past Psychological History: ADD/ADHD Additional Psychological History / Comment(s): Pt resides with his [facility] Smoking Status: Vaper Past Alcohol Use History: None Reported Past Drug Use History: None Reported Additional Drug Use History / Comment(s): CLEAN FROM HEROIN 2015 - Past Family History Father Family Medical History: No Reported History Additional Family Medical History / Comment(s): Father is a heroin addict clean 2-1/2 years now. Mother Family Medical History: Diabetes Mellitus, Hypertension Medications and Allergies Home Medications Medication Instructions Recorded Confirmed Type QUEtiapine [SEROquel] 50 mg PO HS 09/08/19 07/04/23 History Dextroamphetamine/Amphetamine 30 mg PO BID 07/16/22 07/04/23 History [Adderall] Sodium Bicarbonate 650 mg PO BID 07/16/22 07/04/23 History calcitrioL 0.25 mcg PO TUTH 07/16/22 07/04/23 History Dapagliflozin Propanediol [Farxiga] 5 mg PO DAILY 08/14/22 07/04/23 History Ergocalciferol [Vitamin D2 (1250 1,250 mcg PO Q30D 08/14/22 07/04/23 History Mcg = 79022 Iu)] Sildenafil Citrate 100 mg PO DAILY PRN 01/05/23 07/04/23 History HYDROcodone/APAP 5-325MG [[place] 1 tab PO Q6H PRN 06/15/23 07/04/23 History 5-325] Losartan-Hctz 50-12.5 mg [Hyzaar 1 tab PO DAILY 06/15/23 07/04/23 History 50-12.5] Naloxone HCl [Narcan] 4 mg NASAL ONCE PRN 06/15/23 07/04/23 History Naproxen [Naprosyn] 500 mg PO BID PRN 06/15/23 07/04/23 History Ondansetron Odt [Zofran Odt] 4 mg PO Q6H PRN 06/18/23 07/04/23 History Allergies Allergy/AdvReac Type Severity Reaction Status Date / Time No Known Allergies Allergy Verified 07/05/23 01:12 Surgical - Exam Vital Signs Temp Pulse Resp BP Pulse Ox 97.9 F 112 H 20 167/106 98 07/05/23 01:10 07/05/23 01:10 07/05/23 01:10 07/05/23 01:10 07/05/23 01:10 Physical exam: General: Well-developed, well-nourished HEENT: Normocephalic, sclerae nonicteric Abdomen: Mild right upper quadrant tenderness nondistended Extremities: No edema Neuro: Alert and oriented Assessment and Plan (1) Chronic cholecystitis Narrative/Plan: 38-year-old male with history of alcohol abuse and alcohol induced hepatitis and pancreatitis. Patient was able to provide on his phone his recent office visit with his GI specialist at [facility]. They describe removing the recent transpapillary biliary stent and did advise the patient follow through with cholecystectomy given the history of previous cholecystitis. Will tentatively schedule for laparoscopic cholecystectomy tomorrow with Dr. Maradiaga. Repeat labs in AM. Current Visit: Yes Status: Acute Code(s): K81.1 - CHRONIC CHOLECYSTITIS SNOMED Code(s): 50875594
[2023-07-05 13:41] LABS: Amylase 83 U/L (30-110); Lipase 76 U/L (23-300)
[2023-07-05] MEDS: QUEtiapine 50 MG TAB PO SCH (20:16)
--- NOTE | 2023-07-05 21:07 | HP ---
HISTORY AND PHYSICAL HISTORY OF PRESENT ILLNESS: The patient was admitted with pancreatitis. He signed out against medical advice. Now, he has returned to the hospital. He had an elevated lipase and amylase yesterday, now he is back. PAST MEDICAL HISTORY: Hypertension, , diabetes, mood disorder, chronic kidney disease. Labs are pending. PHYSICAL EXAMINATION: VITAL SIGNS: Temp 98.1, pulse 77, respiratory rate 16 to 18, blood pressure 140s over 70s, O2 of 98% on room air. CARDIOVASCULAR: S1, S2. LUNGS: Transmitted upper airway sounds. GI: Soft, tenderness to palpation, epigastric. NEUROLOGIC: Alert and oriented x3. PSYCH: Fair mood and affect. PLAN: We will get GI and Surgery involved. Check amylase, lipase in the morning. Clear liquid diet. N.p.o. until then. Pain control. MMODL / IJN: [id number] /
[2023-07-05] MEDS: LORazepam 2 MG/ML INJ IV PRN (23:41)
[2023-07-06] MEDS: ONDANSETRON 4 MG/2 ML VIAL IVP ONE (07:40)
[2023-07-06] MEDS: DEXAMETHASONE SOD PHOSPHATE 4 MG/ML 1 ML VIAL IVP ONE (07:40)
[2023-07-06] MEDS: HEPARIN SODIUM,PORCINE 5,000 UNIT/ML 1 ML VIAL SQ ONE (07:40)
[2023-07-06] MEDS: IV FLUID CONTINUATION 1,000 ML IV ONE (07:41)
[2023-07-06] MEDS ORDERED: SUCCINYLCHOLINE CHLORIDE 200 MG/10 ML VIAL IV ONE (07:41)
[2023-07-06] MEDS ORDERED: GLYCOPYRROLATE 0.2 MG/ML 2 ML VIAL ONE (07:41)
[2023-07-06] MEDS ORDERED: NEOSTIGMINE 1 MG/ML 10 ML VIAL ONE (07:41)
[2023-07-06] MEDS ORDERED: MIDAZOLAM 2 MG/2 ML VIAL ONE (07:41)
[2023-07-06] MEDS ORDERED: fentaNYL (PF) 50 MCG/ML 2 ML AMP ONE (07:41)
[2023-07-06] MEDS ORDERED: PROPOFOL 10 MG/ML 20 ML VIAL IV ONE (07:41)
[2023-07-06] MEDS ORDERED: KETAMINE HCL IN 0.9 % NACL 50 MG/5 ML SYRINGE ONE (07:41)
[2023-07-06] MEDS ORDERED: ROCURONIUM 10 MG/ML (5 ML VIAL) IV ONE (07:41)
[2023-07-06] MEDS ORDERED: LIDOCAINE 1% INJ 10MG/ML (20 ML MDV) ONE (07:41)
--- NOTE | 2023-07-06 08:35 | P.OP ---
Date of Procedure: 07/06/23 Preoperative Diagnosis: Cholecystitis Postoperative Diagnosis: Cholecystitis Procedure(s) Performed: Laparoscopic cholecystectomy Anesthesia: XAVI Surgeon: Mark Maradiaga Estimated Blood Loss (ml): 5 Pathology: other (Gallbladder) Condition: stable Disposition: PACU Description of Procedure: The patient was placed on the operating table. The patient received a general endotracheal tube anesthesia. The patients abdomen was prepped and draped in the usual sterile fashion. Through an infraumbilical stab incision, the fascia of the anterior abdominal wall was grasped with a pair of Kochers and then the Veress needle was placed in the peritoneal cavity. Position of the Veress needle was confirmed with positive drop test. The abdomen was then insufflated. After adequate insufflation, the 10 mm trocar was placed in the peritoneal cavity. Following this the laparoscope was placed in the peritoneal cavity. The patient was placed in the head-up, right side up position and then a 5 mm trocar was placed in the right lateral and right subcostal position under direct visualization. A 8 mm trocar was placed in the epigastric position. The gallbladder was grasped in the fundus and infundibulum. Traction on the gallbladder was placed in the lateral and the cephalad positions. The triangle of Calot was visualized.. The cystic duct was bluntly dissected until the union of the cystic duct and common bile duct was seen. A critical view of safety was achieved. The cystic duct was then divided and sealed with the Harmonic scissors. A PDS Endoloop was then placed throughout the cystic duct stump. The cystic artery divided and sealed with the Harmonic scissors. The gallbladder was then removed from the liver bed using Harmonic scissors. The gallbladder was then extracted through the epigastric port site. Operative field was checked for any bleeding spots and Harmonic scissors was used to coagulate the liver bed. The abdomen was irrigated. The trocars were removed. The skin was closed using interrupted 3-0 Vicryl suture. Dermabond dressing were applied. The patient tolerated the procedure well.
[2023-07-06] MEDS: HYDROmorphone 0.5 MG/0.5 ML SYRINGE IVP ONE ×3 (09:02→09:27)
[2023-07-06] MEDS: SODIUM CHLORIDE 0.9% 1,000 ML IV ONE (09:29)
[2023-07-06] MEDS: FAMOTIDINE 20 MG TAB PO SCH (10:20)
[2023-07-06] MEDS: HYDROcodone/APAP 5-325MG 1 EACH TAB PO PRN (10:21)
[2023-07-06] MEDS: HEPARIN SODIUM,PORCINE 5,000 UNIT/ML 1 ML VIAL SQ STA (10:21)
[2023-07-06 11:38] LABS: Basophils % (A) 0 %; Eosinophils % (A) 1 %; HCT 47.3 % (39.0-53.0); HGB 15.1 gm/dL (13.0-17.5); Lymphocytes # (A) 0.5 k/uL (1.0-4.8); Lymphocytes % (A) 7 %; MCHC 31.9 g/dL (31.0-37.0); MCV 87.8 fL (80.0-100.0); Mean Platelet Volume 7.8; Monocytes # (A) 0.2 k/uL (0-1.0); Monocytes % (A) 2 %; Neutrophils # (A) 6.4 k/uL (1.3-7.7); Neutrophils % (A) 89 %; Platelet Count 155 k/uL (150-450); RBC 5.38 m/uL (4.30-5.90); RDW 14.4 % (11.5-15.5); WBC 7.3 k/uL (3.8-10.6)
[2023-07-06 11:44] LABS: ALT 38 U/L (4-49); AST 56 U/L (17-59); Albumin 4.3 g/dL (3.5-5.0); Albumin/Globulin Ratio 1.4; Alkaline Phosphatase 89 U/L (38-126); Anion Gap 5 mmol/L; Blood Urea Nitrogen 21 mg/dL (9-20); Calcium 9.2 mg/dL (8.4-10.2); Carbon Dioxide 23 mmol/L (22-30); Chloride 112 mmol/L (98-107); Glucose 120 mg/dL (74-99); Lipase 87 U/L (23-300); Potassium 4.5 mmol/L (3.5-5.1); Sodium 140 mmol/L (137-145); Total Bilirubin 0.8 mg/dL (0.2-1.3); Total Protein 7.3 g/dL (6.3-8.2)
[2023-07-06 11:59] LABS: African American GFR (CKD) 51 (>60 ml/min/1.73 sqM); Non-African American GFR(CKD) 44 (>60 ml/min/1.73 sqM)
[2023-07-06] MEDS: HYDROmorphone 0.5 MG/0.5 ML SYRINGE IVP PRN (19:32)
--- NOTE | 2023-07-06 23:33 | PN ---
PROGRESS NOTE A 38-year-old white male, admitted with acute pancreatitis. Blood pressure 140s to 160s over 70s to 80s, respiratory rate 12 to 14, O2 saturation 98% to 96%. BUN is 21, creatinine 1.89, GFR is 44, sodium 140, potassium 4.5. Lipase is now normal. He had surgery under anesthesia for gallbladder for lap pallavi and possible discharge home after gallbladder surgery, and continue current treatment. Prognosis is guarded. MMODL / IJN: [id number] /
[2023-07-07] MEDS ORDERED: HYDROmorphone 0.5 MG/0.5 ML SYRINGE IVP PRN (07:00)
[2023-07-07] MEDS: ONDANSETRON 4 MG/2 ML VIAL IVP PRN (09:52)
[2023-07-07 14:32] VITALS: BP 134/79; PULSE 108; RESP 21; TEMP 97.8
--- NOTE | 2023-07-07 15:31 | P.PN ---
Subjective Progress Note Date: 07/07/23 CHIEF COMPLAINT: Cholecystitis HISTORY OF PRESENT ILLNESS: Postop day #1 status post laparoscopic cholecy stectomy. Patient having flatus. He did have episode of nausea and vomiting. Does complain of abdominal pain. Has been up and ambulating. Afebrile. Heart rate 108. WBC 7.3 Hgb 15.1 creatinine 1.89 PHYSICAL EXAM: VITAL SIGNS: Reviewed. GENERAL: Well-developed in no acute distress. HEENT: No sclera icterus. Extraocular movements grossly intact. Moist buccal mucosa. Head is atraumatic, normocephalic. ABDOMEN: Soft. Nondistended. Nontender. NEUROLOGIC: Alert and oriented. Cranial nerves II through XII grossly intact. ASSESSMENT: 1. Cholecystitis status post laparoscopic cholecystectomy PLAN: -Continue regular diet -Continue pain management -Encourage patient to ambulate -Continue antiemetics -Decrease IV fluids to 75 -Anticipate possible discharge tomorrow Physician Communications Lead note has been reviewed by physician. Signing provider agrees with the documented findings, assessment, and plan of care. Objective - Vital Signs Vital signs: Vital Signs Temp 97.7 F 07/07/23 07:00 Pulse 100 07/07/23 07:00 Resp 18 07/07/23 07:00 BP 162/90 07/07/23 07:00 Pulse Ox 100 07/07/23 07:00 FiO2 Intake & Output 07/06/23 07/07/23 07/07/23 18:59 06:59 18:59 Intake Total 968 500 Output Total 520 Balance 448 500 Intake: IV 850 Oral 118 500 Output: Urine 500 Estimated Blood Loss 20 Other: Voiding Method Toilet Toilet Urinal # Voids 2 2 - Labs CBC & Chem 7: 07/06/23 11:15 07/06/23 11:15 Labs: Abnormal Lab Results - Last 24 Hours (Table) 07/06/23 Range/Units 11:15 Chloride 112 H (98-107) mmol/L BUN 21 H (9-20) mg/dL Creatinine 1.89 H (0.66-1.25) mg/dL Glucose 120 H (74-99) mg/dL
--- NOTE | 2023-07-27 10:25 | ED ---
Abdominal Pain HPI - General Chief Complaint: Abdominal Pain Stated Complaint: abd pain Time Seen by Provider: 07/05/23 01:14 Source: patient Mode of arrival: ambulatory Limitations: no limitations - History of Present Illness Initial Comments: Patient is a 38-year-old man who presents requesting to be readmitted to the hospital. The patient had been admitted to the hospital for pancreatitis. Patient states that there was a problem with his daughter that he had to go on a 10 to so he signed out and now he would like to resume his course of treatment. Patient has been admitted under Dr. Schultz and was to have consultations. MD Complaint: abdominal pain -: days(s) Location: RUQ, epigastric Radiation: none Migration to: no migration Severity: moderate Quality: aching Consistency: constant Improves With: nothing Worsens With: nothing Associated Symptoms: nausea, vomiting - Related Data Home Medications Medication Instructions Recorded Confirmed QUEtiapine [SEROquel] 50 mg PO HS 09/08/19 07/10/23 Sodium Bicarbonate 650 mg PO BID 07/16/22 07/10/23 calcitrioL 0.25 mcg PO TUTH 07/16/22 07/10/23 Ergocalciferol [Vitamin D2 (1250 1,250 mcg PO Q30D 08/14/22 07/10/23 Mcg = 82105 Iu)] Sildenafil Citrate 100 mg PO DAILY PRN 01/05/23 07/10/23 Losartan-Hctz 50-12.5 mg [Hyzaar 1 tab PO DAILY 06/15/23 07/10/23 50-12.5] Naloxone HCl [Narcan] 4 mg NASAL ONCE PRN 06/15/23 07/10/23 Naproxen [Naprosyn] 500 mg PO BID PRN 06/15/23 07/10/23 Ondansetron Odt [Zofran ODT] 4 mg PO Q6H PRN 06/18/23 07/10/23 Dextroamphetamine/Amphetamine 30 mg PO BID 07/10/23 07/10/23 [Adderall] HYDROcodone/APAP 7.5-325MG [[place] 1 tab PO Q6H PRN 07/10/23 07/10/23 7.5-325] Allergies Allergy/AdvReac Type Severity Reaction Status Date / Time No Known Allergies Allergy Verified 07/10/23 16:59 Review of Systems ROS Statement: Those systems with pertinent positive or pertinent negative responses have been documented in the HPI. ROS Other: All systems not noted in ROS Statement are negative. Constitutional: Denies: fever, chills, weakness Respiratory: Denies: cough, dyspnea Cardiovascular: Denies: chest pain, palpitations, edema Gastrointestinal: Reports: abdominal pain, nausea, vomiting. Denies: diarrhea, constipation, melena, hematochezia Genitourinary: Denies: dysuria, hematuria Musculoskeletal: Denies: back pain Skin: Denies: rash Neurological: Denies: headache, weakness Past Medical History Past Medical History: Dialysis, Hypertension, Liver Disease, Pneumonia, Renal Disease Additional Past Medical History / Comment(s): ETOH abuse, alcoholic hepatitis, 02/05/17 serology lab +for hepatitis C but pt unawarehas antibodies, B12 deficiency, hx of IVDA-heroin but none for almost 4. yrs, 03-14-2019 last dialysis History of Any Multi-Drug Resistant Organisms: None Reported Past Surgical History: No Surgical Hx Reported Additional Past Surgical History / Comment(s): tracheotomy, PEG tube placement, stent in gall bladder and removed , L arm fistula Past Anesthesia/Blood Transfusion Reactions: No Reported Reaction Past Psychological History: ADD/ADHD Additional Psychological History / Comment(s): [facility] Smoking Status: Vaper Past Alcohol Use History: None Reported Past Drug Use History: None Reported Additional Drug Use History / Comment(s): CLEAN FROM HEROIN 2015 - Past Family History Father Family Medical History: No Reported History Additional Family Medical History / Comment(s): Father is a heroin addict clean 2-1/2 years now. Mother Family Medical History: Diabetes Mellitus, Hypertension General Exam Limitations: no limitations General appearance: alert, in no apparent distress Head exam: Present: atraumatic, normocephalic Eye exam: Present: normal appearance. Absent: scleral icterus, conjunctival injection Neck exam: Present: normal inspection Respiratory exam: Present: normal lung sounds bilaterally. Absent: respiratory distress, wheezes, rales, rhonchi, stridor, accessory muscle use Cardiovascular Exam: Present: normal rhythm, tachycardia, normal heart sounds. Absent: systolic murmur, diastolic murmur, rubs, gallop GI/Abdominal exam: Present: soft, tenderness (Mild epigastric tenderness without rebound or guarding). Absent: distended, guarding, rebound, rigid, mass, pulsatile mass, hernia Extremities exam: Present: normal inspection, normal capillary refill. Absent: pedal edema, calf tenderness Back exam: Present: normal inspection. Absent: CVA tenderness (R), CVA tenderness (L) Neurological exam: Present: alert Skin exam: Present: warm, dry, intact, normal color. Absent: rash Course Vital Signs 07/05/23 01:10 Temperature 97.9 F Pulse Rate 112 H Respiratory 20 Rate Blood Pressure 167/106 O2 Sat by Pulse 98 Oximetry Procedures - [place] Protocol (Time Out) Patient Identification (2 identifiers required): Chart, Name, Birthdate Patient/Legal Beater Tender has Confirmed: Identity, Site, Procedure, Consent Site Marked: Not Applicable Medical Decision Making - Medical Decision Making Was pt. sent in by a medical professional or institution (Dr. PA, CLINICAL ENGINEERING MANAGER, urgent care, hospital, or retirement...) When possible be specific @ -[No] Did you speak to anyone other than the patient for history (EMS, parent, family, police, friend...)? What history was obtained from this source @ -[No] Did you review nursing and triage notes (agree or disagree)? Why? @ -[I reviewed and agree with nursing and triage notes] Were old charts reviewed (outside hosp., previous admission, EMS record, old EKG, old radiological studies, urgent care reports/EKG's, retirement records)? Report findings @ -[No old charts were reviewed] Differential Diagnosis (chest pain, altered mental status, abdominal pain women, abdominal pain men, vaginal bleeding, weakness, fever, dyspnea, syncope, headache, dizziness, GI bleed, back pain, seizure, CVA, palpatations, mental health, musculoskeletal)? @ -[Differential Abdominal Pain Men: Appendicitis, cholecystitis, diverticulosis, ischemic bowel, pancreatitis, hepatitis, UTI, gastroenteritis, AAA, incarcerated hernia, bowel obstruction, constipation, inflammatory bowel, hepatitis, peptic ulcer disease, splenic infarction, perforated viscus, testicular torsion, this is not meant to be an all-inclusive list EKG interpreted by me (3pts min.). @ -[As above] X-rays interpreted by me (1pt min.). @ -[None done] CT interpreted by me (1pt min.). @ -[None done] U/S interpreted by me (1pt. min.). @ -[None done] What testing was considered but not performed or refused? (CT, X-rays, U/S, labs)? Why? @ -[None] What meds were considered but not given or refused? Why? @ -[None] Did you discuss the management of the patient with other professionals (professionals i.e. Dr., PA, CLINICAL ENGINEERING MANAGER, lab, RT, psych nurse, social service agency director, church history teacher, teacher, international first officer, wrapper caser)? Give summary @ -[Case was discussed with the admitting physician Was smoking cessation discussed for >3mins.? @ -[No] Was critical care preformed (if so, how long)? @ -[No] Were there social determinants of health that impacted care today? How? (Homelessness, low income, unemployed, alcoholism, drug addiction, transportation, low edu. Level, literacy, decrease access to med. care, nursing home, rehab)? @ -[No] Was there de-escalation of care discussed even if they declined (Discuss DNR or withdrawal of care, Hospice)? DNR status @ -[No] What co-morbidities impacted this encounter? (DM, HTN, Smoking, COPD, CAD, Cancer, CVA, ARF, Chemo, Hep., AIDS, mental health diagnosis, sleep apnea, morbid obesity)? @ -[None] Was patient admitted / discharged? Hospital course, mention meds given and route, prescriptions, significant lab abnormalities, going to OR and other pertinent info. @ -[The patient will be readmitted to continue his evaluation and treatment for upper abdominal pain. Undiagnosed new problem with uncertain prognosis? @ -[No] Drug Therapy requiring intensive monitoring for toxicity (Heparin, Nitro, Insulin, Cardizem)? @ -[No] Were any procedures done? @ -[No] Diagnosis/symptom? @ -[Acute abdominal pain Acute, or Chronic, or Acute on Chronic? @ -[Acute on chronic Uncomplicated (without systemic symptoms) or Complicated (systemic symptoms)? @ -[Complicated Side effects of treatment? @ -[No] Exacerbation, Progression, or Severe Exacerbation? @ -[No] Poses a threat to life or bodily function? How? (Chest pain, [place], [place], pneumonia, PE, COPD, DKA, ARF, appy, cholecystitis, CVA, Diverticulitis, Homicidal, Suicidal, threat to staff... and all critical care pts) @ -[No] - Lab Data Result diagrams: 07/06/23 11:15 07/06/23 11:15 Disposition Clinical Impression: Abdominal pain Disposition: ADMITTED IP TO THIS HOSP Condition: Fair Is patient prescribed a controlled substance at d/c from ED?: No
[2023-07-31] MEDS ORDERED: ERGOCALCIFEROL 1,250 MCG (50,000 IU) CAPSULE PO SCH (09:00)
== END 2023-07-07 18:00 | disposition home or self-care (01) ==
LOC: EC 01:08 → 6NMEDSUR 01:21
PROVIDERS: ADMIT Family Medicine; ATTEND Family Medicine
DX: K81.2 Acute cholecystitis with chronic cholecystitis (principal); I12.9 Hypertensive chronic kidney disease with stage 1 through stage 4 chronic kidney disease, or unspecified chronic kidney disease; E11.22 Type 2 diabetes mellitus with diabetic chronic kidney disease; N18.9 Chronic kidney disease, unspecified; B19.20 Unspecified viral hepatitis C without hepatic coma; K74.60 Unspecified cirrhosis of liver; K21.9 Gastro-esophageal reflux disease without esophagitis; K76.0 Fatty (change of) liver, not elsewhere classified; F17.290 Nicotine dependence, other tobacco product, uncomplicated; Z79.899 Other long term (current) drug therapy; Z79.84 Long term (current) use of oral hypoglycemic drugs; Z87.898 Personal history of other specified conditions; Z87.19 Personal history of other diseases of the digestive system
CPT/HCPCS: 96361; 96374; 96375; 99284; 88304; 80053; 82150; 83690 ×2; 85025; 47562; G0378 ×3; J2250; J0330; J2060 ×3; J2270; J1644; J1100; J2710; J0690; J2405 ×2; J2001; J3010; J2704; J1170 ×3

== ENCOUNTER 2023-07-10 14:55 | Emergency (ER) | payer OTHER ==
[2023-07-10 15:07] VITALS: TEMP 98.3
--- NOTE | 2023-07-10 15:22 | ED ---
Abdominal Pain HPI - General Chief Complaint: Abdominal Pain Stated Complaint: Post op comp, vomitting Time Seen by Provider: 07/10/23 15:19 Source: patient, RN notes reviewed Mode of arrival: ambulatory Limitations: no limitations - History of Present Illness Initial Comments: Patient is a 38-year-old male presented to the ER with chief complaint of ab dominal pain. Patient recently underwent a cholecystectomy by Dr. Maradiaga on 07-06-2023. Patient states for the past 2 days he has been having extreme nausea with vomiting, diarrhea, chills, generalized abdominal pain. Patient states he has been taking prescribed Vicodin and Pepcid without relief. He also states he has not been able to urinate. Denies any headaches, shortness of breath, chest pain, peripheral edema. - Related Data Home Medications Medication Instructions Recorded Confirmed QUEtiapine [SEROquel] 50 mg PO HS 09/08/19 07/10/23 Sodium Bicarbonate 650 mg PO BID 07/16/22 07/10/23 calcitrioL 0.25 mcg PO TUTH 07/16/22 07/10/23 Ergocalciferol [Vitamin D2 (1250 1,250 mcg PO Q30D 08/14/22 07/10/23 Mcg = 17622 Iu)] Sildenafil Citrate 100 mg PO DAILY PRN 01/05/23 07/10/23 Losartan-Hctz 50-12.5 mg [Hyzaar 1 tab PO DAILY 06/15/23 07/10/23 50-12.5] Naloxone HCl [Narcan] 4 mg NASAL ONCE PRN 06/15/23 07/10/23 Naproxen [Naprosyn] 500 mg PO BID PRN 06/15/23 07/10/23 Ondansetron Odt [Zofran ODT] 4 mg PO Q6H PRN 06/18/23 07/10/23 Dextroamphetamine/Amphetamine 30 mg PO BID 07/10/23 07/10/23 [Adderall] HYDROcodone/APAP 7.5-325MG [[place] 1 tab PO Q6H PRN 07/10/23 07/10/23 7.5-325] Allergies Allergy/AdvReac Type Severity Reaction Status Date / Time No Known Allergies Allergy Verified 07/10/23 16:59 Review of Systems ROS Statement: Those systems with pertinent positive or pertinent negative responses have been documented in the HPI. ROS Other: All systems not noted in ROS Statement are negative. Past Medical History Past Medical History: Dialysis, Hypertension, Liver Disease, Pneumonia, Renal Disease Additional Past Medical History / Comment(s): ETOH abuse, alcoholic hepatitis, 02/05/17 serology lab +for hepatitis C but pt unawarehas antibodies, B12 deficiency, hx of IVDA-heroin but none for almost 4. yrs, 03-14-2019 last dialysis History of Any Multi-Drug Resistant Organisms: None Reported Past Surgical History: No Surgical Hx Reported Additional Past Surgical History / Comment(s): tracheotomy, PEG tube placement, stent in gall bladder and removed , L arm fistula Past Anesthesia/Blood Transfusion Reactions: No Reported Reaction Past Psychological History: ADD/ADHD Smoking Status: Vaper Past Alcohol Use History: None Reported Past Drug Use History: None Reported - Past Family History Father Family Medical History: No Reported History Additional Family Medical History / Comment(s): Father is a heroin addict clean 2-1/2 years now. Mother Family Medical History: Diabetes Mellitus, Hypertension General Exam Limitations: no limitations General appearance: alert, other (Patient appears diaphoretic and pain) Head exam: Present: atraumatic, normocephalic, normal inspection Eye exam: Present: normal appearance, PERRL, EOMI. Absent: scleral icterus, conjunctival injection, periorbital swelling Respiratory exam: Present: normal lung sounds bilaterally. Absent: respiratory distress, wheezes, rales, rhonchi, stridor Cardiovascular Exam: Present: normal rhythm, tachycardia, normal heart sounds GI/Abdominal exam: Present: tenderness (Exquisitely tender abdomen), rigid, normal bowel sounds Neurological exam: Present: alert, oriented X3, CN II-XII intact Psychiatric exam: Present: normal affect, normal mood Skin exam: Present: warm, diaphoretic, pallor (Mild) Course Vital Signs 07/10/23 07/10/23 07/10/23 14:57 17:00 18:09 Temperature 98.3 F Pulse Rate 127 H 68 85 Respiratory 22 16 16 Rate Blood Pressure 137/83 131/66 130/68 O2 Sat by Pulse 99 98 98 Oximetry - Reevaluation(s) Reevaluation #1: 07/10/23 17:[address] Maradiaga who states patient can be discharged. Medical Decision Making - Medical Decision Making Was pt. sent in by a medical professional or institution (, MARIA TERESA, [employer], urgent care, hospital, or fpc...) When possible be specific @ -No Did you speak to anyone other than the patient for history (EMS, parent, family, police, friend...)? What history was obtained from this source @ -No Did you review nursing and triage notes (agree or disagree)? Why? @ -I reviewed and agree with nursing and triage notes Were old charts reviewed (outside hosp., previous admission, EMS record, old EKG, old radiological studies, urgent care reports/EKG's, fpc records)? Report findings @ -Yes, I review old charts from 07-06-2023 where patient underwent cholecystectomy by Dr. Maradaiga. Differential Diagnosis (chest pain, altered mental status, abdominal pain women, abdominal pain men, vaginal bleeding, weakness, fever, dyspnea, syncope, headache, dizziness, GI bleed, back pain, seizure, CVA, palpatations, mental health, musculoskeletal)? @ -Differential Abdominal Pain Men:Appendicitis, cholecystitis, diverticulosis, ischemic bowel, pancreatitis, hepatitis, UTI, gastroenteritis, AAA, incarcerated hernia, bowel obstruction, constipation, inflammatory bowel, hepatitis, peptic ulcer disease, splenic infarction, perforated viscus, testicular torsion, this is not meant to be an all-inclusive list EKG interpreted by me (3pts min.). @ -None X-rays interpreted by me (1pt min.). @ -None done CT interpreted by me (1pt min.). @ -CT abdomen pelvis shows postsurgical changes with mild inflammation changes in the surgical bed. No evidence of organized fluid collection or free fluid in the abdomen. U/S interpreted by me (1pt. min.). @ -None done What testing was considered but not performed or refused? (CT, X-rays, U/S, labs)? Why? @ -None What meds were considered but not given or refused? Why? @ -None Did you discuss the management of the patient with other professionals (professionals i.e. , MARIA TERESA, DIRECT[employer], lab, RT, psych nurse, social work therapist, ball ender, teacher, security police officer, complex case manager)? Give summary @ -Yes, I discussed this case with Dr. Maradiaga who states patient can follow- up outpatient. Was smoking cessation discussed for >3mins.? @ -No Was critical care preformed (if so, how long)? @ -No Were there social determinants of health that impacted care today? How? (Homelessness, low income, unemployed, alcoholism, drug addiction, transportation, low edu. Level, literacy, decrease access to med. care, correction, rehab)? @ -No Was there de-escalation of care discussed even if they declined (Discuss DNR or withdrawal of care, Hospice)? DNR status @ -No What co-morbidities impacted this encounter? (DM, HTN, Smoking, COPD, CAD, Cancer, CVA, ARF, Chemo, Hep., AIDS, mental health diagnosis, sleep apnea, morbid obesity)? @ -Renal disease on dialysis, liver disease, hypertension Was patient admitted / discharged? Hospital course, mention meds given and route, prescriptions, significant lab abnormalities, going to OR and other pertinent info. @ -Discharge. Patient is a 38-year-old male presented ER with a chief complaint of nausea/vomiting and abdominal pain. Patient recently underwent a cholecystectomy by Dr. Maradiaga on 07/06/23. Patient experiencing nausea and vomiting and abdominal pain for the past 48 hours. History and physical exam were completed. Tachycardic at 127 bpm on exam otherwise vitals stable. Patient was mildly diaphoretic and had an exquisitely tender abdomen with multiple con tusions around surgical incisions. No signs of infection or purulent drainage. Labs obtained in the ER unremarkable. White blood cell count 7.0, BUN 28, creatinine 2.37. Elevated creatinine was contributed to patient's renal disease as he is on dialysis. Urine without signs of infection. CT abdomen pelvis performed shows no acute process outside of postsurgical changes. Patient received IV fluids, Reglan, Dilaudid with improvement of pain. Patient prescribed starter pack of Zofran. I discussed case with Dr. Maradiaga who stated patient can follow-up outpatient. Return parameters were discussed. Patient be discharged stable condition with follow-up to Dr. Maradiaga. Patient expressed understanding and agreement with care plan. Undiagnosed new problem with uncertain prognosis? @ -No Drug Therapy requiring intensive monitoring for toxicity (Heparin, Nitro, Insulin, Cardizem)? @ -No Were any procedures done? @ -No Diagnosis/symptom? @ -Nausea/vomiting/abdominal pain Acute, or Chronic, or Acute on Chronic? @ -Acute Uncomplicated (without systemic symptoms) or Complicated (systemic symptoms)? @ -[Uncomplicated Side effects of treatment? @ -No Exacerbation, Progression, or Severe Exacerbation? @ -No Poses a threat to life or bodily function? How? (Chest pain, USA, ME, pneumonia, PE, COPD, DKA, ARF, appy, cholecystitis, CVA, Diverticulitis, Homicidal, Suicidal, threat to staff... and all critical care pts) @ -No - Lab Data Result diagrams: 07/10/23 15:17 07/10/23 15:17 Lab Results 07/10/23 07/10/23 07/10/23 Range/Units 15:17 15:17 15:17 WBC 7.1 (3.8-10.6) k/uL RBC 5.71 (4.30-5.90) m/uL Hgb 16.4 (13.0-17.5) gm/dL Hct 50.5 (39.0-53.0) % MCV 88.4 (80.0-100.0) fL MCH 28.6 (25.0-35.0) pg MCHC 32.4 (31.0-37.0) g/dL RDW 14.3 (11.5-15.5) % Plt Count 204 (150-450) k/uL MPV 7.8 Hypochromasia Slight Sodium 141 (137-145) mmol/L Potassium 3.8 (3.5-5.1) mmol/L Chloride 112 H (98-107) mmol/L Carbon Dioxide 16 L (22-30) mmol/L Anion Gap 13 mmol/L BUN 28 H (9-20) mg/dL Creatinine 2.37 H (0.66-1.25) mg/dL Est GFR (CKD-EPI)AfAm 39 (>60 ml/min/1.73 sqM) Est GFR (CKD-EPI)NonAf 34 (>60 ml/min/1.73 sqM) Glucose 121 H (74-99) mg/dL Plasma Lactic Acid Niko 1.6 (0.7-2.0) mmol/L Calcium 9.8 (8.4-10.2) mg/dL Total Bilirubin 1.0 (0.2-1.3) mg/dL AST 44 (17-59) U/L ALT 46 (4-49) U/L Alkaline Phosphatase 119 (38-126) U/L Total Protein 8.0 (6.3-8.2) g/dL Albumin 4.5 (3.5-5.0) g/dL Amylase 56 (30-110) U/L Lipase 105 (23-300) U/L Urine Color Urine Appearance (Clear) Urine pH (5.0-8.0) Ur Specific [place] (1.001-1.035) Urine Protein (Negative) Urine Glucose (UA) (Negative) Urine Ketones (Negative) Urine Blood (Negative) Urine Nitrite (Negative) Urine Bilirubin (Negative) Urine Urobilinogen (<2.0) mg/dL Ur Leukocyte Esterase (Negative) Urine RBC (0-5) /hpf Urine WBC (0-5) /hpf Ur Squamous Epith Cells (0-4) /hpf Urine Mucus (None) /hpf 07/10/23 Range/Units 16:17 WBC (3.8-10.6) k/uL RBC (4.30-5.90) m/uL Hgb (13.0-17.5) gm/dL Hct (39.0-53.0) % MCV (80.0-100.0) fL MCH (25.0-35.0) pg MCHC (31.0-37.0) g/dL RDW (11.5-15.5) % Plt Count (150-450) k/uL MPV Hypochromasia Sodium (137-145) mmol/L Potassium (3.5-5.1) mmol/L Chloride (98-107) mmol/L Carbon Dioxide (22-30) mmol/L Anion Gap mmol/L BUN (9-20) mg/dL Creatinine (0.66-1.25) mg/dL Est GFR (CKD-EPI)AfAm (>60 ml/min/1.73 sqM) Est GFR (CKD-EPI)NonAf (>60 ml/min/1.73 sqM) Glucose (74-99) mg/dL Plasma Lactic Acid Niko (0.7-2.0) mmol/L Calcium (8.4-10.2) mg/dL Total Bilirubin (0.2-1.3) mg/dL AST (17-59) U/L ALT (4-49) U/L Alkaline Phosphatase (38-126) U/L Total Protein (6.3-8.2) g/dL Albumin (3.5-5.0) g/dL Amylase (30-110) U/L Lipase (23-300) U/L Urine Color Light Yellow Urine Appearance Clear (Clear) Urine pH 6.0 (5.0-8.0) Ur Specific [place] 1.016 (1.001-1.035) Urine Protein 2+ H (Negative) Urine Glucose (UA) Trace H (Negative) Urine Ketones Negative (Negative) Urine Blood Negative (Negative) Urine Nitrite Negative (Negative) Urine Bilirubin Negative (Negative) Urine Urobilinogen <2.0 (<2.0) mg/dL Ur Leukocyte Esterase Negative (Negative) Urine RBC 3 (0-5) /hpf Urine WBC 1 (0-5) /hpf Ur Squamous Epith Cells <1 (0-4) /hpf Urine Mucus Rare H (None) /hpf - Radiology Data Radiology results: report reviewed, image reviewed Disposition Clinical Impression: Nausea & vomiting, Abdominal pain Disposition: HOME SELF-CARE Condition: Stable Instructions (If sedation given, give patient instructions): Abdominal Pain (ED) Additional Instructions: Please follow-up with Dr. Swann as scheduled. Return to the ER for any new or worsening symptoms. Is patient prescribed a controlled substance at d/c from ED?: No Referrals: Maksim Schultz MD [Primary Care Provider] - 1-2 days Mark Maradiaga MD [STAFF PHYSICIAN] - 1-2 days Time of Disposition: 17:51
[2023-07-10] MEDS: METOCLOPRAMIDE 5 MG/ML 2 ML VIAL IVP STA (15:28)
[2023-07-10] MEDS: HYDROmorphone 1 MG/ML 1 ML SYRINGE IVP STA (15:28)
[2023-07-10] MEDS: SODIUM CHLORIDE 0.9% 1,000 ML IV STA (15:28)
[2023-07-10 15:36] LABS: HCT 50.5 % (39.0-53.0); HGB 16.4 gm/dL (13.0-17.5); Hypochromasia Slight; MCH 28.6 pg (25.0-35.0); MCHC 32.4 g/dL (31.0-37.0); MCV 88.4 fL (80.0-100.0); Mean Platelet Volume 7.8; Platelet Count 204 k/uL (150-450); RBC 5.71 m/uL (4.30-5.90); RDW 14.3 % (11.5-15.5); WBC 7.1 k/uL (3.8-10.6)
[2023-07-10 15:50] LABS: ALT 46 U/L (4-49); AST 44 U/L (17-59); African American GFR (CKD) 39 (>60 ml/min/1.73 sqM); Albumin 4.5 g/dL (3.5-5.0); Alkaline Phosphatase 119 U/L (38-126); Amylase 56 U/L (30-110); Anion Gap 13 mmol/L; Blood Urea Nitrogen 28 mg/dL (9-20); Calcium 9.8 mg/dL (8.4-10.2); Carbon Dioxide 16 mmol/L (22-30); Chloride 112 mmol/L (98-107); Glucose 121 mg/dL (74-99); Lipase 105 U/L (23-300); Non-African American GFR(CKD) 34 (>60 ml/min/1.73 sqM); Potassium 3.8 mmol/L (3.5-5.1); Sodium 141 mmol/L (137-145)
[2023-07-10 16:23] LABS: Appearance,Urine Clear (Clear); Bilirubin,Urine Negative (Negative); Blood,Urine Negative (Negative); Color,Urine Light Yellow; Glucose,Urine (UA) Trace (Negative); Ketones,Urine Negative (Negative); Leukocyte Esterase,Urine Negative (Negative); Mucus,Urine Rare /hpf; Nitrite,Urine Negative (Negative); Protein,Urine 2+ (Negative); RBC,Urine 3 /hpf (0-5); Specific Gravity,Urine 1.016 (1.001-1.035); Squamous Epithelial Cell,Urine <1 /hpf (0-4); Urobilinogen,Urine <2.0 mg/dL (<2.0); WBC,Urine 1 /hpf (0-5)
--- NOTE | 2023-07-10 16:34 | CT ---
EXAMINATION TYPE: CT abdomen pelvis wo con CT DLP: 626.3 mGycm, Automated exposure control for dose reduction was used. DATE OF EXAM: 07/10/2023 4:24 PM COMPARISON: 06/18/2023 CLINICAL INDICATION:Male, 38 years old with history of post op abd pain; h/o cholecystectomy on monda y, pain and nausea TECHNIQUE: Axial CT abdomen pelvis wo con;Sagittal and coronal reformats were created on a separate workstation. Contrast used: (none if empty) Oral contrast used: without Oral Contrast (none if empty) FINDINGS: LOWER CHEST: Unremarkable ABDOMEN LIVER: Unremarkable GALLBLADDER AND BILE DUCTS: The gallbladder surgically absent. PANCREAS: Unremarkable. SPLEEN: Unremarkable. ADRENAL GLANDS: Unremarkable. KIDNEYS AND URETERS: No evidence of hydronephrosis or renal calculus. The ureters are unremarkable. PELVIS BLADDER: Unremarkable REPRODUCTIVE: Unremarkable. ABDOMEN & PELVIS STOMACH AND BOWEL: No evidence of bowel obstruction. Scattered colonic diverticula. PERITONEUM/RETROPERITONEUM: No evidence of pneumoperitoneum or free fluid. VASCULATURE: No evidence of aortic aneurysm. MUSCULOSKELETAL: No acute osseous abnormalities LYMPH NODES: No gross evidence for lymphadenopathy. SOFT TISSUE/ABDOMINAL WALL: Fat-containing umbilical hernia. Postsurgical changes in the upper abdomi nal wall. IMPRESSION: Suspected recent post surgical changes with cholecystectomy and mild inflammation changes in the surg ical bed. No evidence of organizing fluid collection or free fluid in the abdomen.
[2023-07-10 17:01] VITALS: RESP 16
[2023-07-10] MEDS: ONDANSETRON 4 MG/2 ML VIAL IVP STA (18:04)
[2023-07-10] MEDS: HYDROmorphone 0.5 MG/0.5 ML SYRINGE IVP STA (18:04)
[2023-07-10] MEDS: ONDANSETRON 4 MG ODT STARTER PACK 2 TAB BTL PO STA (18:04)
[2023-07-10 18:22] VITALS: BP 130/68; PULSE 85
== END 2023-07-10 18:11 | disposition home or self-care (01) ==
LOC: EC 14:55
DX: R11.2 Nausea with vomiting, unspecified (principal); R10.84 Generalized abdominal pain; I12.0 Hypertensive chronic kidney disease with stage 5 chronic kidney disease or end stage renal disease; N18.6 End stage renal disease; F90.9 Attention-deficit hyperactivity disorder, unspecified type; F17.290 Nicotine dependence, other tobacco product, uncomplicated; Z79.899 Other long term (current) drug therapy
CPT/HCPCS: 36415; 80053; 82150; 83605; 83690; 85027; 81001; 74176; 99285; 96374; 96375 ×2; 96376; 96361 ×3; J2765; J2405; J1170 ×2; S0119

== ENCOUNTER 2023-12-01 04:28 | Emergency (ER) | payer OTHER ==
[2023-12-01 04:41] VITALS: TEMP 97.6
--- NOTE | 2023-12-01 05:00 | ED ---
General Adult HPI - General Chief complaint: Extremity Problem,Nontraumatic Stated complaint: L Knee Pain Time Seen by Provider: 12/01/23 04:29 Source: patient Mode of arrival: wheelchair Limitations: no limitations - History of Present Illness Initial comments: Dictation was produced using [employer] dictation software. please excuse any grammatical, word or spelling errors. Chief Complaint: 38-year-old male with left knee pain History of Present Illness: Patient is 38-year-old male presents emergency department for left lower extremity pain. Patient states that the pain is behind his knee. States that it only hurts whenever he tries to flex at the knee. Denies any shortness of breath. Denies any swelling of his legs. Patient requesting an Dillon wrap. Denies any history of blood clot. Shortness of breath The ROS documented in this emergency department record has been reviewed and confirmed by me. Those systems with pertinent positive or negative responses have been documented in the HPI. All other systems are other negative and/or noncontributory. - Related Data Home Medications Medication Instructions Recorded Confirmed QUEtiapine [SEROquel] 50 mg PO HS 09/08/19 07/10/23 Sodium Bicarbonate 650 mg PO BID 07/16/22 07/10/23 calcitrioL 0.25 mcg PO TUTH 07/16/22 07/10/23 Ergocalciferol [Vitamin D2 (1250 1,250 mcg PO Q30D 08/14/22 07/10/23 Mcg = 74262 Iu)] Sildenafil Citrate 100 mg PO DAILY PRN 01/05/23 07/10/23 Losartan-Hctz 50-12.5 mg [Hyzaar 1 tab PO DAILY 06/15/23 07/10/23 50-12.5] Naloxone HCl [Narcan] 4 mg NASAL ONCE PRN 06/15/23 07/10/23 Naproxen [Naprosyn] 500 mg PO BID PRN 06/15/23 07/10/23 Ondansetron Odt [Zofran ODT] 4 mg PO Q6H PRN 06/18/23 07/10/23 Dextroamphetamine/Amphetamine 30 mg PO BID 07/10/23 07/10/23 [Adderall] HYDROcodone/APAP 7.5-325MG [[place] 1 tab PO Q6H PRN 07/10/23 07/10/23 7.5-325] Allergies Allergy/AdvReac Type Severity Reaction Status Date / Time No Known Allergies Allergy Verified 12/01/23 04:38 Review of Systems ROS Statement: Those systems with pertinent positive or pertinent negative responses have been documented in the HPI. ROS Other: All systems not noted in ROS Statement are negative. Past Medical History Past Medical History: Dialysis, Hypertension, Liver Disease, Pneumonia, Renal Disease Additional Past Medical History / Comment(s): ETOH abuse, alcoholic hepatitis, 02/05/17 serology lab +for hepatitis C but pt unawarehas antibodies, B12 deficiency, hx of IVDA-heroin but none for almost 4. yrs, 03-14-2019 last dialysis History of Any Multi-Drug Resistant Organisms: None Reported, C-DIFF Date of last positivie culture/infection: 2018 MDRO Source:: stool Past Surgical History: Cholecystectomy Additional Past Surgical History / Comment(s): tracheotomy, PEG tube placement, stent in gall bladder and removed , L arm fistula Past Anesthesia/Blood Transfusion Reactions: No Reported Reaction Past Psychological History: ADD/ADHD Smoking Status: Vaper Past Alcohol Use History: None Reported Past Drug Use History: None Reported - Past Family History Father Family Medical History: No Reported History Additional Family Medical History / Comment(s): Father is a heroin addict clean 2-1/2 years now. Mother Family Medical History: Diabetes Mellitus, Hypertension General Exam - General Exam Comments Initial Comments: General: Well-appearing, nontoxic, no acute distress. Head: Normocephalic, atraumatic Eyes: PERRLA, EOMI ENT: Airway patent Chest: Nonlabored breathing Skin: No visual rash, normal skin tone Neuro: Alert and oriented 3 Musculoskeletal: No gross abnormalities Lower extremity: No swelling of the left calf area. No calf tenderness, no medial thigh tenderness. Patient denies any popliteal palpatory tenderness. His pain is reproduced when flexing at the left knee Limitations: no limitations Course Vital Signs 12/01/23 04:38 Temperature 97.6 F Pulse Rate 95 Respiratory 18 Rate Blood Pressure 146/94 O2 Sat by Pulse 99 Oximetry Medical Decision Making - Medical Decision Making Was pt. sent in by a medical professional or institution (, PA, BREAD RACKER, urgent care, hospital, or fci...) When possible be specific @ -No Did you speak to anyone other than the patient for history (EMS, parent, family, police, friend...)? What history was obtained from this source @ -No Did you review nursing and triage notes (agree or disagree)? Why? @ -I reviewed and agree with nursing and triage notes Were old charts reviewed (outside hosp., previous admission, EMS record, old EKG, old radiological studies, urgent care reports/EKG's, fci records)? Report findings @ -No old charts were reviewed Differential Diagnosis (chest pain, altered mental status, abdominal pain women, abdominal pain men, vaginal bleeding, musculoskeletal, weakness, fever, dyspnea, syncope, headache, dizziness, GI bleed, back pain, seizure, CVA, palpatations, mental health)? @ -Not applicable EKG interpreted by me (3pts min.). @ -None done X-rays interpreted by me (1pt min.). @ -None done CT interpreted by me (1pt min.). @ -None done U/S interpreted by me (1pt. min.). @ -None done What testing was considered but not performed or refused? (CT, X-rays, U/S, labs)? Why? @ -None What meds were considered but not given or refused? Why? @ -None Was smoking cessation discussed for >3mins.? @ -No Were there social determinants of health that impacted care today? How? (Homelessness, low income, unemployed, alcoholism, drug addiction, transportation, low edu. Level, literacy, decrease access to med. care, [facility], rehab)? @ -No Was there de-escalation of care discussed even if they declined (Discuss DNR or withdrawal of care, Hospice)? DNR status @ -No What co-morbidities impacted this encounter? (DM, HTN, Smoking, COPD, CAD, Cancer, CVA, ARF, Chemo, Hep., AIDS, mental health diagnosis, sleep apnea, morbid obesity)? @ -None Was patient admitted / discharged? Hospital course, mention meds given and route, prescriptions, significant lab abnormalities, going to OR and other pertinent info. @ -8-year-old male with clinical presentation patient's for hamstring tendinitis. Vital signs stable. The patient that his symptoms are an area that is suspicious for popliteal DVT. Patient refusing ultrasound and x-ray. Patient would like to just be discharged with an Dillon wrap. Did you discuss the management of the patient with other professionals (professionals i.e. , PA, BREAD RACKER, lab, RT, psych nurse, social work coordinator, paint roller assembler, teacher, hotel security officer, director case)? Give summary @ -No Was critical care preformed (if so, how long)? @ -No Undiagnosed new problem with uncertain prognosis? @ -No Drug Therapy requiring intensive monitoring for toxicity (Heparin, Nitro, Insulin, Cardizem)? @ -No Were any procedures done? @ -No Diagnosis/symptom? Acute, or Chronic, or Acute on Chronic? Uncomplicated (without systemic symptoms) or Complicated (systemic symptoms)? @ -Hamstring tendinitis Side effects of treatment? @ -No Exacerbation, Progression, or Severe Exacerbation? @ -No Poses a threat to life or bodily function? How? (Chest pain, [place], [place], pneumonia, PE, COPD, DKA, ARF, appy, cholecystitis, CVA, Diverticulitis, Homicidal, Suicidal, threat to staff... and all critical care pts) @ -No Disposition Clinical Impression: Hamstring tendinitis Disposition: HOME SELF-CARE Condition: Good Instructions (If sedation given, give patient instructions): Tendinitis (ED) Is patient prescribed a controlled substance at d/c from ED?: No Referrals: Maksim Schultz MD [Primary Care Provider] - 1-2 days Time of Disposition: 04:59
[2023-12-01 05:05] VITALS: BP 159/111; PULSE 107; RESP 20
== END 2023-12-01 05:05 | disposition home or self-care (01) ==
LOC: EC 04:28
DX: S76.312A Strain of muscle, fascia and tendon of the posterior muscle group at thigh level, left thigh, initial encounter (principal); F17.290 Nicotine dependence, other tobacco product, uncomplicated; X58.XXXA Exposure to other specified factors, initial encounter
CPT/HCPCS: 99283

== ENCOUNTER 2023-12-09 15:00 | Emergency (ER) | payer BC, OTHER ==
[2023-12-09 15:07] VITALS: TEMP 98.3
[2023-12-09] MEDS: SODIUM CHLORIDE 0.9% 1,000 ML IV STA (16:02)
[2023-12-09] MEDS: KETOROLAC 15 MG/ML 1 ML VIAL IVP STA (16:02)
--- NOTE | 2023-12-09 16:16 | ED ---
Fall HPI - General Chief Complaint: Fall Stated Complaint: Fall-L sided injury Time Seen by Provider: 12/09/23 15:30 Source: patient, EMS, RN notes reviewed, old records reviewed Mode of arrival: EMS Limitations: no limitations - History of Present Illness Initial Comments: This is a 38-year-old male to the ER for evaluation patient presents the emergen cy department today for evaluation regards to fall. Patient is incarcerated, did fall off the top bunk prior to arrival complaining of severe back pain neck pain left arm pain left elbow pain and chest pain. Patient states he was laying down for a nap when he fell out of the bed unsure of loss of consciousness because he does not remember the fall. 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: no Place Fall Occurred: home Loss of Consciousness: none Prolonged Down Time?: no Symptoms Prior to Fall: none Location: face, chest, back, abdomen, pelvis Severity: moderate Severity scale (1-10): 2 Quality: sharp Context: tripped/slipped Associated Symptoms: denies - Related Data Home Medications Medication Instructions Recorded Confirmed QUEtiapine [SEROquel] 50 mg PO HS 09/08/19 07/10/23 Sodium Bicarbonate 650 mg PO BID 07/16/22 07/10/23 calcitrioL 0.25 mcg PO TUTH 07/16/22 07/10/23 Ergocalciferol [Vitamin D2 (1250 1,250 mcg PO Q30D 08/14/22 07/10/23 Mcg = 90148 Iu)] Sildenafil Citrate 100 mg PO DAILY PRN 01/05/23 07/10/23 Losartan-Hctz 50-12.5 mg [Hyzaar 1 tab PO DAILY 06/15/23 07/10/23 50-12.5] Naloxone HCl [Narcan] 4 mg NASAL ONCE PRN 06/15/23 07/10/23 Naproxen [Naprosyn] 500 mg PO BID PRN 06/15/23 07/10/23 Ondansetron Odt [Zofran ODT] 4 mg PO Q6H PRN 06/18/23 07/10/23 Dextroamphetamine/Amphetamine 30 mg PO BID 07/10/23 07/10/23 [Adderall] HYDROcodone/APAP 7.5-325MG [Collison 1 tab PO Q6H PRN 07/10/23 07/10/23 7.5-325] Allergies Allergy/AdvReac Type Severity Reaction Status Date / Time No Known Allergies Allergy Verified 12/09/23 15:07 Review of Systems ROS Statement: Those systems with pertinent positive or pertinent negative responses have been documented in the HPI. ROS Other: All systems not noted in ROS Statement are negative. Past Medical History Past Medical History: Dialysis, Hypertension, Liver Disease, Pneumonia, Renal Disease Additional Past Medical History / Comment(s): ETOH abuse, alcoholic hepatitis, 02/05/17 serology lab +for hepatitis C but pt unawarehas antibodies, B12 deficiency, hx of IVDA-heroin but none for almost 4. yrs, 03-14-2019 last dialysis History of Any Multi-Drug Resistant Organisms: None Reported, C-DIFF Date of last positivie culture/infection: 2018 MDRO Source:: stool Past Surgical History: Cholecystectomy Additional Past Surgical History / Comment(s): tracheotomy, PEG tube placement, stent in gall bladder and removed , L arm fistula Past Anesthesia/Blood Transfusion Reactions: No Reported Reaction Past Psychological History: ADD/ADHD Smoking Status: Vaper Past Alcohol Use History: None Reported Past Drug Use History: None Reported - Past Family History Father Family Medical History: No Reported History Additional Family Medical History / Comment(s): Father is a heroin addict clean 2-1/2 years now. Mother Family Medical History: Diabetes Mellitus, Hypertension General Exam General appearance: alert, in no apparent distress Head exam: Present: atraumatic, normocephalic, normal inspection Eye exam: Present: normal appearance, PERRL, EOMI. Absent: scleral icterus, conjunctival injection, periorbital swelling ENT exam: Present: normal exam, mucous membranes moist Neck exam: Present: normal inspection. Absent: tenderness, meningismus, lympha denopathy Respiratory exam: Present: normal lung sounds bilaterally. Absent: respiratory distress, wheezes, rales, rhonchi, stridor Cardiovascular Exam: Present: regular rate, normal rhythm, normal heart sounds, other (Anterior chest wall abrasion). Absent: systolic murmur, diastolic murmur, rubs, gallop, clicks GI/Abdominal exam: Present: soft, normal bowel sounds. Absent: distended, tenderness, guarding, rebound, rigid Extremities exam: Present: normal inspection, full ROM, normal capillary refill. Absent: tenderness, pedal edema, joint swelling, calf tenderness Back exam: Present: normal inspection Neurological exam: Present: alert, oriented X3, CN II-XII intact Psychiatric exam: Present: normal affect, normal mood Skin exam: Present: warm, dry, intact, normal color. Absent: rash Course Vital Signs 12/09/23 12/09/23 12/09/23 15:04 16:57 19:33 Temperature 98.3 F Pulse Rate 90 92 87 Respiratory 18 18 16 Rate Blood Pressure 160/111 144/88 131/82 O2 Sat by Pulse 97 98 99 Oximetry 12/09/23 20:46 Temperature Pulse Rate 83 Respiratory 16 Rate Blood Pressure 145/83 O2 Sat by Pulse 99 Oximetry - Reevaluation(s) Reevaluation #1: 12/09/23 16:15 Medical records reviewed Reevaluation #2: 12/09/23 16:15 Patient symptoms improving still needing pain control Reevaluation #3: 12/09/23 16:15 Patient informed of results questions answered Reevaluation #4: Was pt. sent in by a medical professional or institution (, PA, TELEX OPERATOR, urgent care, hospital, or alf...) When possible be specific @ -no Did you speak to anyone other than the patient for history (EMS, parent, family, police, friend...)? What history was obtained from this source @ -no Did you review nursing and triage notes (agree or disagree)? Why? @ -agree Are old charts reviewed (outside hosp., previous admission, EMS record, old EKG, old radiological studies, urgent care reports/EKG's, alf records)? Report findings @ -yes Differential Diagnosis (chest pain, altered mental status, abdominal pain women, abdominal pain men, vaginal bleeding, weakness, fever, dyspnea, syncope, he adache, dizziness, GI bleed, back pain, seizure, CVA, palpatations, mental health, musculoskeletal)? @ -prior EKG interpreted by me (3pts min.). @ -yes X-rays interpreted by me (1pt min.). @ -yes negative for acute disease CT interpreted by me (1pt min.). @ -Yes negative for acute disease U/S interpreted by me (1pt. min.). @ -no What testing was considered but not performed or refused? (CT, X-rays, U/S, labs)? Why? @ -none What meds were considered but not given or refused? Why? @ -none Did you discuss the management of the patient with other professionals (professionals i.e. , PA, TELEX OPERATOR, lab, RT, psych nurse, social work supervisor, form building supervisor, teacher, correctional officer captain, lining caser)? Give summary @ -no Was smoking cessation discussed for >3mins.? @ -no Was critical care preformed (if so, how long)? @ -no Were there social determinants of health that impacted care today? How? (Homelessness, low income, unemployed, alcoholism, drug addiction, transportation, low edu. Level, literacy, decrease access to med. care, long term, rehab)? @ -none Was there de-escalation of care discussed even if they declined (Discuss DNR or withdrawal of care, Hospice)? DNR status @ -no What co-morbidities impacted this encounter? (DM, HTN, Smoking, COPD, CAD, Cancer, CVA, ARF, Chemo, Hep., AIDS, mental health diagnosis, sleep apnea, morbid obesity)? @ -none Was patient admitted / discharged? Hospital course, mention meds given and route, prescriptions, significant lab abnormalities, going to OR and other pertinent info. @ - 38 male to ER after a fall off the GVISP 1. Patient has no traumatic injury noted throughout ER stay and is cleared medically for incarceration Discharge Undiagnosed new problem with uncertain prognosis? @ -no Drug Therapy requiring intensive monitoring for toxicity (Heparin, Nitro, Insulin, Cardizem)? @ -no Were any procedures done? @ -no Diagnosis/symptom? @ -Fall without traumatic injury Acute, or Chronic, or Acute on Chronic? @ -Acute Uncomplicated (without systemic symptoms) or Complicated (systemic symptoms)? @ -Complicated Side effects of treatment? @ -no Exacerbation, Progression, or Severe Exacerbation? @ -exacerbation Poses a threat to life or bodily function? How? (Chest pain, [place], [place], pneumonia, PE, COPD, DKA, ARF, appy, cholecystitis, CVA, Diverticulitis, Homicidal, Suicidal, threat to staff... and all critical care pts) @ -yes significant fall fall without traumatic injury Medical Decision Making - Medical Decision Making 38 male to ER after a fall off the top [place]. Patient has no traumatic injury noted throughout ER stay and is cleared medically for incarceration - Lab Data Result diagrams: 12/09/23 15:59 12/09/23 15:59 Lab Results 12/09/23 12/09/23 12/09/23 Range/Units 15:59 15:59 15:59 WBC 6.1 (3.8-10.6) k/uL RBC 5.34 (4.30-5.90) m/uL Hgb 15.2 (13.0-17.5) gm/dL Hct 48.8 (39.0-53.0) % MCV 91.4 (80.0-100.0) fL MCH 28.5 (25.0-35.0) pg MCHC 31.2 (31.0-37.0) g/dL RDW 13.6 (11.5-15.5) % Plt Count 170 (150-450) k/uL MPV 7.8 Neutrophils % 70 % Lymphocytes % 18 % Monocytes % 7 % Eosinophils % 3 % Basophils % 1 % Neutrophils # 4.3 (1.3-7.7) k/uL Lymphocytes # 1.1 (1.0-4.8) k/uL Monocytes # 0.4 (0-1.0) k/uL Eosinophils # 0.2 (0-0.7) k/uL Basophils # 0.0 (0-0.2) k/uL PT 11.4 (10.0-12.5) sec INR 1.0 (<1.2) APTT 25.2 (22.0-30.0) sec Sodium 139 (137-145) mmol/L Potassium 4.7 (3.5-5.1) mmol/L Chloride 109 H (98-107) mmol/L Carbon Dioxide 25 (22-30) mmol/L Anion Gap 5 mmol/L BUN 22 H (9-20) mg/dL Creatinine 1.63 H (0.66-1.25) mg/dL Est GFR (CKD-EPI)AfAm 61 (>60 ml/min/1.73 sqM) Est GFR (CKD-EPI)NonAf 53 (>60 ml/min/1.73 sqM) Glucose 104 H (74-99) mg/dL Plasma Lactic Acid Niko (0.7-2.0) mmol/L Calcium 8.9 (8.4-10.2) mg/dL Phosphorus 2.9 (2.5-4.5) mg/dL Magnesium 2.1 (1.6-2.3) mg/dL Total Bilirubin 0.6 (0.2-1.3) mg/dL AST 34 (17-59) U/L ALT 26 (4-49) U/L Alkaline Phosphatase 77 (38-126) U/L Troponin I (0.000-0.034) ng/mL NT-Pro-B Natriuret Pep 32 pg/mL Total Protein 6.3 (6.3-8.2) g/dL Albumin 3.6 (3.5-5.0) g/dL Urine Color Urine Appearance (Clear) Urine pH (5.0-8.0) Ur Specific [place] (1.001-1.035) Urine Protein (Negative) Urine Glucose (UA) (Negative) Urine Ketones (Negative) Urine Blood (Negative) Urine Nitrite (Negative) Urine Bilirubin (Negative) Urine Urobilinogen (<2.0) mg/dL Ur Leukocyte Esterase (Negative) Urine RBC (0-5) /hpf Urine Mucus (None) /hpf 12/09/23 12/09/23 12/09/23 Range/Units 15:59 15:59 15:59 WBC (3.8-10.6) k/uL RBC (4.30-5.90) m/uL Hgb (13.0-17.5) gm/dL Hct (39.0-53.0) % MCV (80.0-100.0) fL MCH (25.0-35.0) pg MCHC (31.0-37.0) g/dL RDW (11.5-15.5) % Plt Count (150-450) k/uL MPV Neutrophils % % Lymphocytes % % Monocytes % % Eosinophils % % Basophils % % Neutrophils # (1.3-7.7) k/uL Lymphocytes # (1.0-4.8) k/uL Monocytes # (0-1.0) k/uL Eosinophils # (0-0.7) k/uL Basophils # (0-0.2) k/uL PT (10.0-12.5) sec INR (<1.2) APTT (22.0-30.0) sec Sodium (137-145) mmol/L Potassium (3.5-5.1) mmol/L Chloride (98-107) mmol/L Carbon Dioxide (22-30) mmol/L Anion Gap mmol/L BUN (9-20) mg/dL Creatinine (0.66-1.25) mg/dL Est GFR (CKD-EPI)AfAm (>60 ml/min/1.73 sqM) Est GFR (CKD-EPI)NonAf (>60 ml/min/1.73 sqM) Glucose (74-99) mg/dL Plasma Lactic Acid Niko 0.8 (0.7-2.0) mmol/L Calcium (8.4-10.2) mg/dL Phosphorus (2.5-4.5) mg/dL Magnesium (1.6-2.3) mg/dL Total Bilirubin (0.2-1.3) mg/dL AST (17-59) U/L ALT (4-49) U/L Alkaline Phosphatase (38-126) U/L Troponin I <0.012 (0.000-0.034) ng/mL NT-Pro-B Natriuret Pep pg/mL Total Protein (6.3-8.2) g/dL Albumin (3.5-5.0) g/dL Urine Color Colorless Urine Appearance Clear (Clear) Urine pH 6.5 (5.0-8.0) Ur Specific [place] 1.011 (1.001-1.035) Urine Protein 1+ H (Negative) Urine Glucose (UA) 4+ H (Negative) Urine Ketones Negative (Negative) Urine Blood Negative (Negative) Urine Nitrite Negative (Negative) Urine Bilirubin Negative (Negative) Urine Urobilinogen <2.0 (<2.0) mg/dL Ur Leukocyte Esterase Negative (Negative) Urine RBC <1 (0-5) /hpf Urine Mucus Rare H (None) /hpf - EKG Data -: EKG Interpreted by Me (EKG is sinus 90 WI 146 QRS 85 QTc 395) - Radiology Data Radiology results: report reviewed (CT brain C-spine and x-rays of chest pelvis and multiple x-rays are negative for traumatic injury), image reviewed Disposition Clinical Impression: Fall Disposition: HOME SELF-CARE Condition: Good Instructions (If sedation given, give patient instructions): Fall Prevention (ED) Is patient prescribed a controlled substance at d/c from ED?: No Referrals: Maksim Schultz MD [Primary Care Provider] - 1-2 days Time of Disposition: 20:20
[2023-12-09 16:38] LABS: Basophils % (A) 1 %; Eosinophils # (A) 0.2 k/uL (0-0.7); Eosinophils % (A) 3 %; HCT 48.8 % (39.0-53.0); HGB 15.2 gm/dL (13.0-17.5); Lymphocytes # (A) 1.1 k/uL (1.0-4.8); Lymphocytes % (A) 18 %; MCH 28.5 pg (25.0-35.0); MCHC 31.2 g/dL (31.0-37.0); MCV 91.4 fL (80.0-100.0); Mean Platelet Volume 7.8; Monocytes # (A) 0.4 k/uL (0-1.0); Monocytes % (A) 7 %; Neutrophils # (A) 4.3 k/uL (1.3-7.7); Neutrophils % (A) 70 %; Platelet Count 170 k/uL (150-450); RBC 5.34 m/uL (4.30-5.90); RDW 13.6 % (11.5-15.5); WBC 6.1 k/uL (3.8-10.6)
[2023-12-09 16:40] LABS: ALT 26 U/L (4-49); AST 34 U/L (17-59); African American GFR (CKD) 61 (>60 ml/min/1.73 sqM); Albumin 3.6 g/dL (3.5-5.0); Alkaline Phosphatase 77 U/L (38-126); Anion Gap 5 mmol/L; Blood Urea Nitrogen 22 mg/dL (9-20); Calcium 8.9 mg/dL (8.4-10.2); Carbon Dioxide 25 mmol/L (22-30); Chloride 109 mmol/L (98-107); Glucose 104 mg/dL (74-99); Magnesium 2.1 mg/dL (1.6-2.3); Non-African American GFR(CKD) 53 (>60 ml/min/1.73 sqM); Phosphorus 2.9 mg/dL (2.5-4.5); Potassium 4.7 mmol/L (3.5-5.1); Sodium 139 mmol/L (137-145); Total Bilirubin 0.6 mg/dL (0.2-1.3); Total Protein 6.3 g/dL (6.3-8.2)
[2023-12-09 16:42] LABS: Partial Thromboplastin Time 25.2 sec (22.0-30.0); Prothrombin Time 11.4 sec (10.0-12.5)
[2023-12-09 16:48] LABS: NT-Pro-B-Type Natriuretic Pept 32 pg/mL
[2023-12-09] MEDS: ACETAMINOPHEN IV (For NPO) 1,000 MG in EMPTY BAG 1 BAG IVPB STA (16:55)
--- NOTE | 2023-12-09 17:07 | CT ---
EXAMINATION TYPE: CT brain cspine wo con CT DLP: 1418.9 mGycm, Automated exposure control for dose reduction was used. DATE OF EXAM: 12/09/2023 4:35 PM COMPARISON: 10/14/2017. CLINICAL INDICATION:Male, 38 years old with history of pain; fell from top bunk bed. Neck and shoulde r pain. TECHNIQUE: Brain: Multiple axial CT images of the brain were obtained without IV contrast. Cspine: Axial CT images from the skull base to the inferior aspect of T2 we obtained without intraven ous contrast. Coronal and sagittal reformatted images were also reviewed. . FINDINGS: Brain: Extra-axial spaces: No abnormal extra-axial fluid collections. Ventricular system: Within normal limits Cerebral parenchyma: No acute intraparenchymal hemorrhage or mass effect. The casiano-white junction is well differentiated. Cerebellum: Unremarkable. Mass effect: No evidence of midline shift. Intracranial vasculature: unremarkable Soft tissues: Normal. Calvarium/osseous structures: No depressed skull fracture. Paranasal sinuses and mastoid air cells: Clear. Visualized orbits: Orbital contents are intact. Cervical spine: Fracture: None. Osseous structures: Unremarkable Vertebral alignment: Within normal limits. Spinal canal/Neural Foramina: No evidence of significant spinal canal narrowing. No evidence for sign ificant neural foraminal stenosis. Neck soft tissues: Prevertebral soft tissues are within normal limits. Other: The airway is patent. The lung apices are clear. IMPRESSION: 1. No acute intracranial process. 2. No evidence of cervical spine fracture.
[2023-12-09 17:08] LABS: Appearance,Urine Clear (Clear); Bilirubin,Urine Negative (Negative); Blood,Urine Negative (Negative); Color,Urine Colorless; Glucose,Urine (UA) 4+ (Negative); Ketones,Urine Negative (Negative); Leukocyte Esterase,Urine Negative (Negative); Mucus,Urine Rare /hpf; Nitrite,Urine Negative (Negative); PH, Urine 6.5 (5.0-8.0); Protein,Urine 1+ (Negative); RBC,Urine <1 /hpf (0-5); Specific Gravity,Urine 1.011 (1.001-1.035); Urobilinogen,Urine <2.0 mg/dL (<2.0)
--- NOTE | 2023-12-09 18:37 | XR ---
EXAMINATION TYPE: XR elbow complete LT DATE OF EXAM: 12/09/2023 6:19 PM CLINICAL INDICATION:Male, 38 years old with history of pain; [facility] COMPARISON: None TECHNIQUE: XR elbow complete LT; elbow was examined in AP, lateral, and oblique projections. FINDINGS: No evidence of any acute osseous pathology, joint dislocation, or soft tissue swelling is n oted. No evidence of joint effusion is present. IMPRESSION: No evidence of acute fracture.
--- NOTE | 2023-12-09 18:37 | XR ---
EXAMINATION TYPE: XR shoulder complete LT DATE OF EXAM: 12/09/2023 6:19 PM CLINICAL INDICATION:Male, 38 years old with history of pain; COMPARISON: None TECHNIQUE: XR shoulder complete LT; examined in AP, internally rotated and scapular Y projections. FINDINGS: No evidence of acute osseous pathology, joint dislocation, or soft tissue swelling. The remaining po rtions of the visualized chest are unremarkable. IMPRESSION: No acute osseous pathology.
--- NOTE | 2023-12-09 18:38 | XR ---
EXAMINATION TYPE: XR pelvis AP view DATE OF EXAM: 12/09/2023 6:19 PM CLINICAL INDICATION:Male, 38 years old with history of pain; COMPARISON: None TECHNIQUE: XR pelvis AP view, examined in a single projection. FINDINGS: There is no evidence of fracture or dislocation. There is no soft tissue abnormality. No a bnormal calcifications are present. The spine appears intact. The hips appear intact. No significant degeneration. IMPRESSION: No acute osseous pathology. Mild degeneration changes of the hip.
--- NOTE | 2023-12-09 18:38 | XR ---
EXAMINATION TYPE: XR wrist complete LT DATE OF EXAM: 12/09/2023 6:19 PM CLINICAL INDICATION:Male, 38 years old with history of pain; COMPARISON: None TECHNIQUE: XR wrist complete LT; examined in the Frontal, navicular, lateral, and oblique. FINDINGS: No acute osseous pathology, joint dislocation, or joint effusion. No evidence of any soft tissue swelling is seen. IMPRESSION: No acute osseous pathology.
--- NOTE | 2023-12-09 18:39 | XR ---
EXAMINATION TYPE: XR chest 1V DATE OF EXAM: 12/09/2023 6:19 PM CLINICAL INDICATION:Male, 38 years old with history of pain; COMPARISON: Chest radiographs from 01/13/2023 TECHNIQUE: XR chest 1V Frontal view of the chest. FINDINGS: Lungs/Pleura: There is no evidence of pleural effusion, focal consolidation, or pneumothorax. Pulmonary vascularity: Unremarkable. Heart/mediastinum: Cardiomediastinal silhouette is unremarkable. Musculoskeletal: No acute osseous pathology. IMPRESSION: No acute cardiopulmonary disease/process.
[2023-12-09 19:34] VITALS: RESP 16
[2023-12-09 20:48] VITALS: BP 145/83; PULSE 83
== END 2023-12-09 20:49 | disposition home or self-care (01) ==
LOC: EC 15:00
DX: R10.32 Left lower quadrant pain (principal); M25.522 Pain in left elbow; R07.9 Chest pain, unspecified; M79.602 Pain in left arm; M54.9 Dorsalgia, unspecified; F17.290 Nicotine dependence, other tobacco product, uncomplicated; W06.XXXA Fall from bed, initial encounter; Y92.019 Unspecified place in single-family (private) house as the place of occurrence of the external cause
CPT/HCPCS: 36415; 93005; 83880; 80053; 83605; 83735; 84100; 84484; 85025; 85610; 85730; 81001; 72170; 73030; 73080; 73110; 71045; 72125; 70450; 99285; 96374; 96361; J0131; J1885

== ENCOUNTER 2024-01-29 20:33 | Emergency (ER) | payer BC, OTHER ==
[2024-01-29 20:38] VITALS: RESP 18; TEMP 98.2
--- NOTE | 2024-01-29 20:43 | ED ---
Abdominal Pain HPI - General Chief Complaint: Abdominal Pain Stated Complaint: abd pain Time Seen by Provider: 01/29/24 20:43 Source: patient, RN notes reviewed Mode of arrival: wheelchair - History of Present Illness Initial Comments: 38-year-old presents emergency department chief complaint of abdominal pain. Patient has been seen in the emergency department multiple times for similar complaints. States that over the past 2 days he has had worsening diffuse abdominal pain that is most severe of the right upper quadrant. Patient has a complicated postsurgical abdominal history with his most recent surgery being in July 2023 with a cholecystectomy. Patient follows with Dr. Helms. Patient states that he has had episodes of nausea, vomiting, diarrhea the past few days as well. Denies hematemesis, hematochezia, dark or tarry stools. Denies urinary symptoms. Denies fevers. - Related Data Home Medications Medication Instructions Recorded Confirmed QUEtiapine [SEROquel] 50 mg PO HS 09/08/19 07/10/23 Sodium Bicarbonate 650 mg PO BID 07/16/22 07/10/23 calcitrioL 0.25 mcg PO TUTH 07/16/22 07/10/23 Ergocalciferol [Vitamin D2 (1250 1,250 mcg PO Q30D 08/14/22 07/10/23 Mcg = 32626 Iu)] Sildenafil Citrate 100 mg PO DAILY PRN 01/05/23 07/10/23 Losartan-Hctz 50-12.5 mg [Hyzaar 1 tab PO DAILY 06/15/23 07/10/23 50-12.5] Naloxone HCl [Narcan] 4 mg NASAL ONCE PRN 06/15/23 07/10/23 Naproxen [Naprosyn] 500 mg PO BID PRN 06/15/23 07/10/23 Ondansetron Odt [Zofran ODT] 4 mg PO Q6H PRN 06/18/23 07/10/23 Dextroamphetamine/Amphetamine 30 mg PO BID 07/10/23 07/10/23 [Adderall] HYDROcodone/APAP 7.5-325MG [[place] 1 tab PO Q6H PRN 07/10/23 07/10/23 7.5-325] Allergies Allergy/AdvReac Type Severity Reaction Status Date / Time No Known Allergies Allergy Verified 01/29/24 20:39 Review of Systems ROS Statement: Those systems with pertinent positive or pertinent negative responses have been documented in the HPI. ROS Other: All systems not noted in ROS Statement are negative. Past Medical History Past Medical History: Dialysis, Hypertension, Liver Disease, Pneumonia, Renal Disease Additional Past Medical History / Comment(s): ETOH abuse, alcoholic hepatitis, 02/05/17 serology lab +for hepatitis C but pt unawarehas antibodies, B12 deficiency, hx of IVDA-heroin but none for almost 4. yrs, 03-14-2020 last dialysis History of Any Multi-Drug Resistant Organisms: None Reported, C-DIFF Date of last positivie culture/infection: 2018 MDRO Source:: stool Past Surgical History: Cholecystectomy Additional Past Surgical History / Comment(s): tracheotomy, PEG tube placement, stent in gall bladder and removed , L arm fistula Past Anesthesia/Blood Transfusion Reactions: No Reported Reaction Past Psychological History: ADD/ADHD Smoking Status: Vaper Past Alcohol Use History: None Reported Past Drug Use History: None Reported - Past Family History Father Family Medical History: No Reported History Additional Family Medical History / Comment(s): Father is a heroin addict clean 2-1/2 years now. Mother Family Medical History: Diabetes Mellitus, Hypertension General Exam General appearance: alert, in no apparent distress Head exam: Present: atraumatic, normocephalic, normal inspection Eye exam: Present: normal appearance, PERRL, EOMI. Absent: scleral icterus, conjunctival injection, periorbital swelling ENT exam: Present: normal exam, mucous membranes moist Neck exam: Present: normal inspection. Absent: tenderness, meningismus, lymphadenopathy Respiratory exam: Present: normal lung sounds bilaterally. Absent: respiratory distress, wheezes, rales, rhonchi, stridor Cardiovascular Exam: Present: regular rate, normal rhythm, normal heart sounds. Absent: systolic murmur, diastolic murmur, rubs, gallop, clicks GI/Abdominal exam: Present: soft, tenderness (diffuse), normal bowel sounds. Absent: guarding, rebound, rigid Extremities exam: Present: normal inspection, full ROM, normal capillary refill. Absent: tenderness, pedal edema, joint swelling, calf tenderness Back exam: Present: normal inspection Skin exam: Present: warm, dry, intact, normal color. Absent: rash Course Vital Signs 01/29/24 01/29/24 01/29/24 20:34 21:36 22:48 Temperature 98.2 F Pulse Rate 120 H 96 Respiratory 18 18 18 Rate Blood Pressure 171/132 160/114 177/116 O2 Sat by Pulse 97 96 Oximetry Medical Decision Making - Medical Decision Making Was pt. sent in by a medical professional or institution (, PA, [employer]EDER, urgent care, hospital, or long-term...) When possible be specific @ -No Did you speak to anyone other than the patient for history (EMS, parent, family, police, friend...)? What history was obtained from this source @ -No Did you review nursing and triage notes (agree or disagree)? Why? @ -I reviewed and agree with nursing and triage notes Were old charts reviewed (outside hosp., previous admission, EMS record, old EKG, old radiological studies, urgent care reports/EKG's, long-term records)? Report findings @ -No old charts were reviewed Differential Diagnosis (chest pain, altered mental status, abdominal pain women, abdominal pain men, vaginal bleeding, weakness, fever, dyspnea, syncope, headache, dizziness, GI bleed, back pain, seizure, CVA, palpatations, mental health, musculoskeletal)? @ -Differential Abdominal Pain Men: Appendicitis, cholecystitis, diverticulosis, ischemic bowel, pancreatitis, hepatitis, UTI, gastroenteritis, AAA, incarcerated hernia, bowel obstruction, constipation, inflammatory bowel, hepatitis, peptic ulcer disease, splenic infarction, perforated viscus, testicular torsion, this is not meant to be an all-inclusive list EKG interpreted by me (3pts min.). @ -None X-rays interpreted by me (1pt min.). @ -None done CT interpreted by me (1pt min.). @ -None done U/S interpreted by me (1pt. min.). @ -None done What testing was considered but not performed or refused? (CT, X-rays, U/S, labs)? Why? @ -The imaging that was considered but deferred at this time. Patient's labs including CBC, CMP and pancreatic enzymes within normal limits. Additionally patient has had a recent CT imaging of the abdomen completed a few weeks ago with no acute process and this pain is similar as to previous when he reported emergency department. Patient is okay with deferring CT imaging at this time as well. What meds were considered but not given or refused? Why? @ -None Did you discuss the management of the patient with other professionals (professionals i.e. , PA, [employer]EDER, lab, RT, psych nurse, 7th grade social studies teacher, raking machine operator, teacher, [employer]oc airspace control officer, case advocate)? Give summary @ -No Was smoking cessation discussed for >3mins.? @ -No Was critical care preformed (if so, how long)? @ -No Were there social determinants of health that impacted care today? How? (Homelessness, low income, unemployed, alcoholism, drug addiction, transportation, low edu. Level, literacy, decrease access to med. care, [facility], rehab)? @ -No Was there de-escalation of care discussed even if they declined (Discuss DNR or withdrawal of care, Hospice)? DNR status @ -No What co-morbidities impacted this encounter? (DM, HTN, Smoking, COPD, CAD, Cancer, CVA, ARF, Chemo, Hep., AIDS, mental health diagnosis, sleep apnea, morbid obesity)? @ -None Was patient admitted / discharged? Hospital course, mention meds given and route, prescriptions, significant lab abnormalities, going to OR and other pertinent info. @ -38-year-old male with abdominal pain. On examination patient has equal bowel sounds heard throughout. There is mild tenderness to palpation over the abdomen abdominal signs of rebound tenderness or rigidity. Patient is symptomatically treated with IV fluids and pain medication pending results of labs. He is agreeable this plan. CBC, CMP, reticulocyte enzymes within normal limits. On reevaluation, patient states that his abdominal pain is somewhat decreased however still present. He is provided with additional dose of pain medication states that this is markedly improved his symptoms. Patient has been hype rtensive during ER visit with SBP in 160-170 and DBP 110, patient is denying CP, SOB, palpitations. does have a history of CKD and HTN on Losartan/HCTZ, states that he took his medication as prescribed today. patient is provided with dose of IVP hydralazine for BP reduction, on re-check roughly 25 minutes after medication administration BP is 140s/low 90s, and is a stable BP for discharge. Recommend follows up next week with his primary care provider for further evaluation of abdominal pain and HTN. All questions answered at bedside answered return prior discussed with the patient he is verbalized understanding. Discussed with Dr. Robertson Undiagnosed new problem with uncertain prognosis? @ -No Drug Therapy requiring intensive monitoring for toxicity (Heparin, Nitro, Insulin, Cardizem)? @ -No Were any procedures done? @ -No Diagnosis/symptom? @ -abdominal pain, hypertension Acute, or Chronic, or Acute on Chronic? @ -acute Uncomplicated (without systemic symptoms) or Complicated (systemic symptoms)? @ -uncomplicated Side effects of treatment? @ -No Exacerbation, Progression, or Severe Exacerbation? @ -No Poses a threat to life or bodily function? How? (Chest pain, [place], [place], pneumonia, PE, COPD, DKA, ARF, appy, cholecystitis, CVA, Diverticulitis, Homicidal, Suicidal, threat to staff... and all critical care pts) @ -No - Lab Data Result diagrams: 01/29/24 21:36 01/29/24 21:36 Lab Results 01/29/24 01/29/24 01/29/24 Range/Units 21:36 21:36 21:36 WBC 7.2 (3.8-10.6) k/uL RBC 6.22 H (4.30-5.90) m/uL Hgb 17.3 (13.0-17.5) gm/dL Hct 55.0 H (39.0-53.0) % MCV 88.4 (80.0-100.0) fL MCH 27.8 (25.0-35.0) pg MCHC 31.4 (31.0-37.0) g/dL RDW 13.8 (11.5-15.5) % Plt Count 190 (150-450) k/uL MPV 7.7 Neutrophils % 75 % Lymphocytes % 15 % Monocytes % 6 % Eosinophils % 2 % Basophils % 1 % Neutrophils # 5.4 (1.3-7.7) k/uL Lymphocytes # 1.1 (1.0-4.8) k/uL Monocytes # 0.4 (0-1.0) k/uL Eosinophils # 0.2 (0-0.7) k/uL Basophils # 0.0 (0-0.2) k/uL Hypochromasia Slight Sodium 142 (137-145) mmol/L Potassium 4.6 (3.5-5.1) mmol/L Chloride 112 H (98-107) mmol/L Carbon Dioxide 23 (22-30) mmol/L Anion Gap 7 mmol/L BUN 25 H (9-20) mg/dL Creatinine 2.19 H (0.66-1.25) mg/dL Est GFR (CKD-EPI)AfAm 43 (>60 ml/min/1.73 sqM) Est GFR (CKD-EPI)NonAf 37 (>60 ml/min/1.73 sqM) Glucose 76 (74-99) mg/dL Plasma Lactic Acid Niko 1.2 (0.7-2.0) mmol/L Calcium 10.5 H (8.4-10.2) mg/dL Total Bilirubin 0.4 (0.2-1.3) mg/dL AST 37 (17-59) U/L ALT 37 (4-49) U/L Alkaline Phosphatase 88 (38-126) U/L Total Protein 7.6 (6.3-8.2) g/dL Albumin 4.6 (3.5-5.0) g/dL Amylase 99 (30-110) U/L Lipase 179 (23-300) U/L Disposition Clinical Impression: Abdominal pain, Hypertension Disposition: HOME SELF-CARE Condition: Good Instructions (If sedation given, give patient instructions): Abdominal Pain (ED) Additional Instructions: Return the emergency department for any new or worsening symptoms. Recommend follow-up with your primary care provider next week for further evaluation of abdominal pain and hypertension. Continue to take anti-hypertensive medication as prescribed. Is patient prescribed a controlled substance at d/c from ED?: No Referrals: Maksim Schultz MD [Primary Care Provider] - 1-2 days Time of Disposition: 22:33
[2024-01-29] MEDS: SODIUM CHLORIDE 0.9% 1,000 ML IV STA (21:31)
[2024-01-29] MEDS: HYDROmorphone 1 MG/ML 1 ML SYRINGE IVP STA ×2 (21:31→22:49)
[2024-01-29] MEDS: ONDANSETRON 4 MG/2 ML VIAL IVP STA (21:32)
[2024-01-29 21:42] LABS: Basophils % (A) 1 %; Eosinophils # (A) 0.2 k/uL (0-0.7); Eosinophils % (A) 2 %; HGB 17.3 gm/dL (13.0-17.5); Hypochromasia Slight; Lymphocytes # (A) 1.1 k/uL (1.0-4.8); Lymphocytes % (A) 15 %; MCH 27.8 pg (25.0-35.0); MCHC 31.4 g/dL (31.0-37.0); MCV 88.4 fL (80.0-100.0); Mean Platelet Volume 7.7; Monocytes # (A) 0.4 k/uL (0-1.0); Monocytes % (A) 6 %; Neutrophils # (A) 5.4 k/uL (1.3-7.7); Neutrophils % (A) 75 %; Platelet Count 190 k/uL (150-450); RBC 6.22 m/uL (4.30-5.90); RDW 13.8 % (11.5-15.5); WBC 7.2 k/uL (3.8-10.6)
[2024-01-29 22:21] LABS: ALT 37 U/L (4-49); AST 37 U/L (17-59); African American GFR (CKD) 43 (>60 ml/min/1.73 sqM); Albumin 4.6 g/dL (3.5-5.0); Alkaline Phosphatase 88 U/L (38-126); Amylase 99 U/L (30-110); Anion Gap 7 mmol/L; Blood Urea Nitrogen 25 mg/dL (9-20); Calcium 10.5 mg/dL (8.4-10.2); Carbon Dioxide 23 mmol/L (22-30); Chloride 112 mmol/L (98-107); Glucose 76 mg/dL (74-99); Lipase 179 U/L (23-300); Non-African American GFR(CKD) 37 (>60 ml/min/1.73 sqM); Potassium 4.6 mmol/L (3.5-5.1); Sodium 142 mmol/L (137-145); Total Bilirubin 0.4 mg/dL (0.2-1.3); Total Protein 7.6 g/dL (6.3-8.2)
[2024-01-29] MEDS: hydrALAZINE HCL 20 MG/ML 1 ML VIAL IVP STA (22:49)
[2024-01-29 23:38] VITALS: BP 146/92; PULSE 94
== END 2024-01-29 23:37 | disposition home or self-care (01) ==
LOC: EC 20:33
DX: R10.9 Unspecified abdominal pain
CPT/HCPCS: 36415; 80053; 82150; 83605; 83690; 85025; 96374; 96375; 96376; 99284

== ENCOUNTER 2024-01-30 12:30 | Emergency (ER) | payer BC, OTHER ==
[2024-01-30 12:34] VITALS: BP 146/94; PULSE 102; RESP 17; TEMP 98
[2024-01-30] MEDS: SODIUM CHLORIDE 0.9% 1,000 ML IV STA (14:12)
[2024-01-30 14:38] LABS: Basophils # (A) 0.1 k/uL (0-0.2); Basophils % (A) 1 %; Eosinophils # (A) 0.2 k/uL (0-0.7); Eosinophils % (A) 3 %; HCT 52.2 % (39.0-53.0); HGB 16.5 gm/dL (13.0-17.5); Hypochromasia Slight; Lymphocytes # (A) 1.3 k/uL (1.0-4.8); Lymphocytes % (A) 18 %; MCH 27.9 pg (25.0-35.0); MCHC 31.6 g/dL (31.0-37.0); MCV 88.2 fL (80.0-100.0); Mean Platelet Volume 7.6; Monocytes # (A) 0.5 k/uL (0-1.0); Monocytes % (A) 7 %; Neutrophils % (A) 70 %; Platelet Count 187 k/uL (150-450); RBC 5.91 m/uL (4.30-5.90); RDW 13.9 % (11.5-15.5); WBC 7.2 k/uL (3.8-10.6)
[2024-01-30 14:52] LABS: ALT 58 U/L (4-49); AST 67 U/L (17-59); African American GFR (CKD) 44 (>60 ml/min/1.73 sqM); Albumin 4.5 g/dL (3.5-5.0); Alkaline Phosphatase 116 U/L (38-126); Anion Gap 8 mmol/L; Blood Urea Nitrogen 26 mg/dL (9-20); Calcium 9.7 mg/dL (8.4-10.2); Carbon Dioxide 21 mmol/L (22-30); Chloride 109 mmol/L (98-107); Glucose 102 mg/dL (74-99); Lipase 253 U/L (23-300); Non-African American GFR(CKD) 38 (>60 ml/min/1.73 sqM); Potassium 4.3 mmol/L (3.5-5.1); Sodium 138 mmol/L (137-145); Total Bilirubin 0.5 mg/dL (0.2-1.3); Total Protein 7.4 g/dL (6.3-8.2)
--- NOTE | 2024-01-30 15:14 | ED ---
Abdominal Pain HPI - General Chief Complaint: Abdominal Pain Stated Complaint: abd pain Time Seen by Provider: 01/30/24 12:37 Source: patient Mode of arrival: ambulatory Limitations: no limitations - History of Present Illness Initial Comments: 38-year-old male presents emergency department with abdominal pain. Patient has been seen multiple times in the emergency department for abdominal pain. States that he had a history of alcohol abuse and was on a ventilator. He was trached and pegged. He was told that he would have issues with abdominal pain his whole life. He is in an acute exacerbation. Presented yesterday to the emergency department. He was given pain medications which did help him. He went home and states his pain came back. He does not have any medications to take at or than Tylenol. He denies any diarrhea. No black or bloody stools stools. He does admit to nausea with some vomiting. Patient is status post gallbladder removal as they thought his symptoms were due to this. He denies any fevers. No other alleviating, precipitating or modifying factors - Related Data Home Medications Medication Instructions Recorded Confirmed QUEtiapine [SEROquel] 50 mg PO HS 09/08/19 07/10/23 Sodium Bicarbonate 650 mg PO BID 07/16/22 07/10/23 calcitrioL 0.25 mcg PO TUTH 07/16/22 07/10/23 Ergocalciferol [Vitamin D2 (1250 1,250 mcg PO Q30D 08/14/22 07/10/23 Mcg = 76353 Iu)] Sildenafil Citrate 100 mg PO DAILY PRN 01/05/23 07/10/23 Losartan-Hctz 50-12.5 mg [Hyzaar 1 tab PO DAILY 06/15/23 07/10/23 50-12.5] Naloxone HCl [Narcan] 4 mg NASAL ONCE PRN 06/15/23 07/10/23 Naproxen [Naprosyn] 500 mg PO BID PRN 06/15/23 07/10/23 Ondansetron Odt [Zofran ODT] 4 mg PO Q6H PRN 06/18/23 07/10/23 Dextroamphetamine/Amphetamine 30 mg PO BID 07/10/23 07/10/23 [Adderall] HYDROcodone/APAP 7.5-325MG [[place] 1 tab PO Q6H PRN 07/10/23 07/10/23 7.5-325] Allergies Allergy/AdvReac Type Severity Reaction Status Date / Time No Known Allergies Allergy Verified 01/30/24 12:34 Review of Systems ROS Statement: Those systems with pertinent positive or pertinent negative responses have been documented in the HPI. ROS Other: All systems not noted in ROS Statement are negative. Past Medical History Past Medical History: Dialysis, Hypertension, Liver Disease, Pneumonia, Renal Disease Additional Past Medical History / Comment(s): ETOH abuse, alcoholic hepatitis, 02/05/17 serology lab +for hepatitis C but pt unawarehas antibodies, B12 deficiency, hx of IVDA-heroin but none for almost 4. yrs, 03-14-2019 last dialysis History of Any Multi-Drug Resistant Organisms: None Reported, C-DIFF Date of last positivie culture/infection: 2018 MDRO Source:: stool Past Surgical History: Cholecystectomy Additional Past Surgical History / Comment(s): tracheotomy, PEG tube placement, stent in gall bladder and removed , L arm fistula Past Anesthesia/Blood Transfusion Reactions: No Reported Reaction Past Psychological History: ADD/ADHD Smoking Status: Vaper Past Alcohol Use History: None Reported Past Drug Use History: None Reported - Past Family History Father Family Medical History: No Reported History Additional Family Medical History / Comment(s): Father is a heroin addict clean 2-1/2 years now. Mother Family Medical History: Diabetes Mellitus, Hypertension General Exam Limitations: no limitations General appearance: alert, in no apparent distress Head exam: Present: atraumatic, normocephalic, normal inspection Eye exam: Present: normal appearance, PERRL, EOMI. Absent: scleral icterus, conjunctival injection, periorbital swelling ENT exam: Present: normal exam, mucous membranes moist Neck exam: Present: normal inspection. Absent: tenderness, meningismus, lymphadenopathy Respiratory exam: Present: normal lung sounds bilaterally. Absent: respiratory distress, wheezes, rales, rhonchi, stridor Cardiovascular Exam: Present: regular rate, normal rhythm, normal heart sounds. Absent: systolic murmur, diastolic murmur, rubs, gallop, clicks GI/Abdominal exam: Present: soft, tenderness (Right upper quadrant), normal bowel sounds. Absent: distended, guarding, rebound, rigid Extremities exam: Present: normal inspection, full ROM, normal capillary refill. Absent: tenderness, pedal edema, joint swelling, calf tenderness Back exam: Present: normal inspection Neurological exam: Present: alert, oriented X3, CN II-XII intact Psychiatric exam: Present: normal affect, normal mood Skin exam: Present: warm, dry, intact, normal color. Absent: rash Course Vital Signs 01/30/24 12:31 Temperature 98.0 F Pulse Rate 102 H Respiratory 17 Rate Blood Pressure 146/94 O2 Sat by Pulse 96 Oximetry Medical Decision Making - Medical Decision Making Was pt. sent in by a medical professional or institution (, PA, SAMPLE MOUNTER, urgent care, hospital, or [facility]...) When possible be specific @ -No Did you speak to anyone other than the patient for history (EMS, parent, family, police, friend...)? What history was obtained from this source @ -No Did you review nursing and triage notes (agree or disagree)? Why? @ -I reviewed and agree with nursing and triage notes Were old charts reviewed (outside hosp., previous admission, EMS record, old EKG, old radiological studies, urgent care reports/EKG's, [facility] records)? Report findings @ -I reviewed the ED visit with laboratory studies done yesterday Differential Diagnosis (chest pain, altered mental status, abdominal pain women, abdominal pain men, vaginal bleeding, weakness, fever, dyspnea, syncope, headache, dizziness, GI bleed, back pain, seizure, CVA, palpatations, mental health, musculoskeletal)? @ -Differential Abdominal Pain Men: Appendicitis, cholecystitis, diverticulosis, ischemic bowel, pancreatitis, hepatitis, UTI, gastroenteritis, AAA, incarcerated hernia, bowel obstruction, c onstipation, inflammatory bowel, hepatitis, peptic ulcer disease, splenic infarction, perforated viscus, testicular torsion, this is not meant to be an all-inclusive list EKG interpreted by me (3pts min.). @ -Not done X-rays interpreted by me (1pt min.). @ -None done CT interpreted by me (1pt min.). @ -Not done U/S interpreted by me (1pt. min.). @ -None done What testing was considered but not performed or refused? (CT, X-rays, U/S, labs)? Why? @ -CT abdomen was ordered however patient left abruptly stating that he had an emergency for his daughter What meds were considered but not given or refused? Why? @ -Pain medications and nausea medications were going to be administered however patient left Did you discuss the management of the patient with other professionals (professionals i.e. , PA, SAMPLE MOUNTER, lab, RT, psych nurse, licensed social worker, marketing sales representative, teacher, training systems officer, caseworker protective services)? Give summary @ -No Was smoking cessation discussed for >3mins.? @ -No Was critical care preformed (if so, how long)? @ -No Were there social determinants of health that impacted care today? How? (Homelessness, low income, unemployed, alcoholism, drug addiction, transportation, low edu. Level, literacy, decrease access to med. care, group home, rehab)? @ -No Was there de-escalation of care discussed even if they declined (Discuss DNR or withdrawal of care, Hospice)? DNR status @ -No What co-morbidities impacted this encounter? (DM, HTN, Smoking, COPD, CAD, Cancer, CVA, ARF, Chemo, Hep., AIDS, mental health diagnosis, sleep apnea, morbid obesity)? @ -Alcoholic liver disease Was patient admitted / discharged? Hospital course, mention meds given and route, prescriptions, significant lab abnormalities, going to OR and other pertinent info. @ -Upon arrival patient seen and evaluated in room 25. Thorough history and physical exam was performed. IV access was established. Laboratory studies were conducted. Patient was supposed to go for CT. He reports that his daughter has an emergency and he abruptly leaves. He is aware that he is leaving AGAINST MEDICAL ADVICE as his medical evaluation is not complete at this time. Patient is aware of the risks of leaving without a complete exam including permanent disability and even . Patient was accepting of these and does leave Undiagnosed new problem with uncertain prognosis? @ -No Drug Therapy requiring intensive monitoring for toxicity (Heparin, Nitro, Insulin, Cardizem)? @ -No Were any procedures done? @ -No Diagnosis/symptom? @ -Acute exacerbation of chronic abdominal pain, history of alcohol abuse Acute, or Chronic, or Acute on Chronic? @ -Acute on chronic Uncomplicated (without systemic symptoms) or Complicated (systemic symptoms)? @ -Complicated Side effects of treatment? @ -No Exacerbation, Progression, or Severe Exacerbation? @ -Yes Poses a threat to life or bodily function? How? (Chest pain, [place], [place], pneumonia, PE, COPD, DKA, ARF, appy, cholecystitis, CVA, Diverticulitis, Homicidal, Suicidal, threat to staff... and all critical care pts) @ -No - Lab Data Result diagrams: 01/30/24 14:24 01/30/24 14:24 Lab Results 01/30/24 01/30/24 01/30/24 Range/Units 14:24 14:24 14:24 WBC 7.2 (3.8-10.6) k/uL RBC 5.91 H (4.30-5.90) m/uL Hgb 16.5 (13.0-17.5) gm/dL Hct 52.2 (39.0-53.0) % MCV 88.2 (80.0-100.0) fL MCH 27.9 (25.0-35.0) pg MCHC 31.6 (31.0-37.0) g/dL RDW 13.9 (11.5-15.5) % Plt Count 187 (150-450) k/uL MPV 7.6 Neutrophils % 70 % Lymphocytes % 18 % Monocytes % 7 % Eosinophils % 3 % Basophils % 1 % Neutrophils # 5.0 (1.3-7.7) k/uL Lymphocytes # 1.3 (1.0-4.8) k/uL Monocytes # 0.5 (0-1.0) k/uL Eosinophils # 0.2 (0-0.7) k/uL Basophils # 0.1 (0-0.2) k/uL Hypochromasia Slight Sodium 138 (137-145) mmol/L Potassium 4.3 (3.5-5.1) mmol/L Chloride 109 H (98-107) mmol/L Carbon Dioxide 21 L (22-30) mmol/L Anion Gap 8 mmol/L BUN 26 H (9-20) mg/dL Creatinine 2.15 H (0.66-1.25) mg/dL Est GFR (CKD-EPI)AfAm 44 (>60 ml/min/1.73 sqM) Est GFR (CKD-EPI)NonAf 38 (>60 ml/min/1.73 sqM) Glucose 102 H (74-99) mg/dL Plasma Lactic Acid Niko 1.0 (0.7-2.0) mmol/L Calcium 9.7 (8.4-10.2) mg/dL Total Bilirubin 0.5 (0.2-1.3) mg/dL AST 67 H (17-59) U/L ALT 58 H (4-49) U/L Alkaline Phosphatase 116 (38-126) U/L Total Protein 7.4 (6.3-8.2) g/dL Albumin 4.5 (3.5-5.0) g/dL Lipase 253 (23-300) U/L Disposition Clinical Impression: Intractable abdominal pain Disposition: LEFT AGAINST MEDICAL ADVICE Condition: Undetermined Is patient prescribed a controlled substance at d/c from ED?: No Referrals: Maksim Schultz MD [Primary Care Provider] - 1-2 days
== END 2024-01-30 15:05 | disposition left against medical advice (07) ==
LOC: EC 12:30
CPT/HCPCS: 36415; 80053; 83605; 83690; 85025; 96360; 99284

== ENCOUNTER 2024-02-01 19:33 | Emergency (ER) | payer BC, OTHER ==
[2024-02-01 19:37] VITALS: RESP 18; TEMP 98.2
[2024-02-01 20:54] LABS: Basophils % (A) 0 %; Eosinophils # (A) 0.2 k/uL (0-0.7); Eosinophils % (A) 3 %; HCT 49.9 % (39.0-53.0); HGB 16.3 gm/dL (13.0-17.5); Hypochromasia Slight; Lymphocytes # (A) 0.7 k/uL (1.0-4.8); Lymphocytes % (A) 10 %; MCHC 32.7 g/dL (31.0-37.0); MCV 88.7 fL (80.0-100.0); Mean Platelet Volume 7.7; Monocytes # (A) 0.5 k/uL (0-1.0); Monocytes % (A) 8 %; Neutrophils # (A) 5.1 k/uL (1.3-7.7); Neutrophils % (A) 77 %; Platelet Count 161 k/uL (150-450); RBC 5.63 m/uL (4.30-5.90); WBC 6.6 k/uL (3.8-10.6)
[2024-02-01 21:04] LABS: ALT 36 U/L (4-49); AST 32 U/L (17-59); African American GFR (CKD) 51 (>60 ml/min/1.73 sqM); Alkaline Phosphatase 107 U/L (38-126); Amylase 110 U/L (30-110); Anion Gap 7 mmol/L; Blood Urea Nitrogen 37 mg/dL (9-20); Calcium 9.7 mg/dL (8.4-10.2); Carbon Dioxide 21 mmol/L (22-30); Chloride 111 mmol/L (98-107); Glucose 85 mg/dL (74-99); Lipase 276 U/L (23-300); Non-African American GFR(CKD) 45 (>60 ml/min/1.73 sqM); Potassium 4.7 mmol/L (3.5-5.1); Sodium 139 mmol/L (137-145); Total Bilirubin 0.4 mg/dL (0.2-1.3); Total Protein 6.7 g/dL (6.3-8.2)
[2024-02-01] MEDS: SODIUM CHLORIDE 0.9% 1,000 ML IV STA (21:07)
[2024-02-01] MEDS: ONDANSETRON 4 MG/2 ML VIAL IVP STA (21:08)
[2024-02-01] MEDS: HYDROmorphone 0.5 MG/0.5 ML SYRINGE IVP STA ×2 (21:08→23:00)
[2024-02-01 21:19] LABS: Appearance,Urine Clear (Clear); Bilirubin,Urine Negative (Negative); Blood,Urine Negative (Negative); Color,Urine Colorless; Glucose,Urine (UA) Negative (Negative); Ketones,Urine Negative (Negative); Leukocyte Esterase,Urine Negative (Negative); Mucus,Urine Rare /hpf; Nitrite,Urine Negative (Negative); Protein,Urine 1+ (Negative); RBC,Urine <1 /hpf (0-5); Specific Gravity,Urine 1.014 (1.001-1.035); Squamous Epithelial Cell,Urine <1 /hpf (0-4); Urobilinogen,Urine <2.0 mg/dL (<2.0); WBC,Urine <1 /hpf (0-5)
--- NOTE | 2024-02-01 22:15 | CT ---
EXAMINATION TYPE: CT abdomen pelvis w con DATE OF EXAM: 02/01/2024 COMPARISON: Prior CT July 10, 2023 HISTORY: Abdominal pain x1 week CT DLP: 1050 mGycm, Automated Exposure Control for Dose Reduction was Utilized. CONTRAST: CT scan of the abdomen and pelvis is performed without oral and with IV contrast. FINDINGS: LUNG BASES: No significant abnormality is appreciated. LIVER/GB: Gallbladder is surgically absent. PANCREAS: No significant abnormality is seen. SPLEEN: Mild splenomegaly at 15.4 cm long axis axial image 23. ADRENALS: No significant abnormality is seen. KIDNEYS: Symmetric cortical medullary uptake and excretion without hydronephrosis seen bilaterally. BOWEL: No abnormal small or large bowel dilatation. PROSTATE/SEMINAL VESICLES: Prostate gland upper limits of normal in size. LYMPH NODES: No greater than 1cm abdominal or pelvic lymph nodes are appreciated. OSSEOUS STRUCTURES: No significant abnormality is seen. OTHER: No significant additional abnormality is seen. IMPRESSION: No significant acute finding is seen to account for patient's clinical symptoms.
[2024-02-01 22:16] LABS: INR 0.9 (<1.2); Partial Thromboplastin Time 24.4 sec (22.0-30.0); Prothrombin Time 10.3 sec (10.0-12.5)
[2024-02-01] MEDS: SODIUM CHLORIDE 0.9% 1,000 ML IV ONE (22:24)
--- NOTE | 2024-02-01 22:38 | ED ---
Abdominal Pain HPI - General Chief Complaint: Abdominal Pain Stated Complaint: SOB, abd pain Time Seen by Provider: 02/01/24 19:49 Source: patient Mode of arrival: wheelchair Limitations: no limitations - History of Present Illness Initial Comments: 38-year-old male presented with chief complaint of abdominal pain. Patient has history of chronic abdominal pain has been seen here on multiple occasions for such pain. Pain is mainly in the right upper quadrant. History of cholecystectomy. He also has a history of chronic pancreatitis. Admits to nausea vomiting and diarrhea. No fevers. No cough, congestion, sore throat, chest pain, difficulty breathing. No injury or trauma. No hematemesis - Related Data Home Medications Medication Instructions Recorded Confirmed QUEtiapine [SEROquel] 50 mg PO HS 09/08/19 07/10/23 Sodium Bicarbonate 650 mg PO BID 07/16/22 07/10/23 calcitrioL 0.25 mcg PO TUTH 07/16/22 07/10/23 Ergocalciferol [Vitamin D2 (1250 1,250 mcg PO Q30D 08/14/22 07/10/23 Mcg = 16274 Iu)] Sildenafil Citrate 100 mg PO DAILY PRN 01/05/23 07/10/23 Losartan-Hctz 50-12.5 mg [Hyzaar 1 tab PO DAILY 06/15/23 07/10/23 50-12.5] Naloxone HCl [Narcan] 4 mg NASAL ONCE PRN 06/15/23 07/10/23 Naproxen [Naprosyn] 500 mg PO BID PRN 06/15/23 07/10/23 Ondansetron Odt [Zofran ODT] 4 mg PO Q6H PRN 06/18/23 07/10/23 Dextroamphetamine/Amphetamine 30 mg PO BID 07/10/23 07/10/23 [Adderall] HYDROcodone/APAP 7.5-325MG [[place] 1 tab PO Q6H PRN 07/10/23 07/10/23 7.5-325] Allergies Allergy/AdvReac Type Severity Reaction Status Date / Time No Known Allergies Allergy Verified 02/01/24 19:37 Review of Systems ROS Statement: Those systems with pertinent positive or pertinent negative responses have been documented in the HPI. ROS Other: All systems not noted in ROS Statement are negative. Past Medical History Past Medical History: Dialysis, Hypertension, Liver Disease, Pneumonia, Renal Disease Additional Past Medical History / Comment(s): ETOH abuse, alcoholic hepatitis, 02/05/17 serology lab +for hepatitis C but pt unawarehas antibodies, B12 deficiency, hx of IVDA-heroin but none for almost 4. yrs, 03-14-2019 last dialysis History of Any Multi-Drug Resistant Organisms: None Reported, C-DIFF Date of last positivie culture/infection: 2018 MDRO Source:: stool Past Surgical History: Cholecystectomy Additional Past Surgical History / Comment(s): tracheotomy, PEG tube placement, stent in gall bladder and removed , L arm fistula Past Anesthesia/Blood Transfusion Reactions: No Reported Reaction Past Psychological History: ADD/ADHD Smoking Status: Vaper Past Alcohol Use History: None Reported Past Drug Use History: None Reported - Past Family History Father Family Medical History: No Reported History Additional Family Medical History / Comment(s): Father is a heroin addict clean 2-1/2 years now. Mother Family Medical History: Diabetes Mellitus, Hypertension General Exam Limitations: no limitations General appearance: alert, in no apparent distress Head exam: Present: atraumatic, normocephalic Eye exam: Present: normal appearance, EOMI Neck exam: Present: normal inspection. Absent: meningismus Respiratory exam: Present: normal lung sounds bilaterally. Absent: respiratory distress, wheezes, rales, rhonchi, stridor Cardiovascular Exam: Present: regular rate, normal rhythm, normal heart sounds. Absent: systolic murmur, diastolic murmur, rubs, gallop, clicks GI/Abdominal exam: Present: soft, tenderness. Absent: distended, guarding, rebound, rigid Neurological exam: Present: alert, oriented X3 Psychiatric exam: Present: normal affect, normal mood Skin exam: Present: warm, dry Course Vital Signs 02/01/24 02/01/24 19:35 23:00 Temperature 98.2 F Pulse Rate 107 H 101 H Respiratory 18 18 Rate Blood Pressure 152/86 148/94 O2 Sat by Pulse 99 100 Oximetry Medical Decision Making - Medical Decision Making Was pt. sent in by a medical professional or institution (, PA, INTERNATIONAL ACCOUNT MANAGER, urgent care, hospital, or jail...) When possible be specific @ -No Did you speak to anyone other than the patient for history (EMS, parent, family, police, friend...)? What history was obtained from this source @ -No Did you review nursing and triage notes (agree or disagree)? Why? @ -I reviewed and agree with nursing and triage notes Were old charts reviewed (outside hosp., previous admission, EMS record, old EKG, old radiological studies, urgent care reports/EKG's, jail records)? Report findings @ -Previous visits reviewed Differential Diagnosis (chest pain, altered mental status, abdominal pain women, abdominal pain men, vaginal bleeding, weakness, fever, dyspnea, syncope, headache, dizziness, GI bleed, back pain, seizure, CVA, palpatations, mental health, musculoskeletal)? @ -MDM Differential Abdominal Pain Men: Appendicitis, cholecystitis, diverticulosis, ischemic bowel, pancreatitis, hepatitis, UTI, gastroenteritis, AAA, incarcerated hernia, bowel obstruction, constipation, inflammatory bowel, hepatitis, peptic ulcer disease, splenic infarction, perforated viscus, testicular torsion... This is not meant to be an all-inclusive list EKG interpreted by me (3pts min.). @ -As above X-rays interpreted by me (1pt min.). @ -None done CT interpreted by me (1pt min.). @ -CT shows no significant acute finding seen to account for patient's clinical symptoms U/S interpreted by me (1pt. min.). @ -None done What testing was considered but not performed or refused? (CT, X-rays, U/S, labs)? Why? @ -None What meds were considered but not given or refused? Why? @ -None Did you discuss the management of the patient with other professionals (professionals i.e. , PA, INTERNATIONAL ACCOUNT MANAGER, lab, RT, psych nurse, social worker school, motor carrier inspector, teacher, correctional security officer, onsite case manager)? Give summary @ -No Was smoking cessation discussed for >3mins.? @ -No Was critical care preformed (if so, how long)? @ -No Were there social determinants of health that impacted care today? How? (Homelessness, low income, unemployed, alcoholism, drug addiction, transportation, low edu. Level, literacy, decrease access to med. care, detention, rehab)? @ -No Was there de-escalation of care discussed even if they declined (Discuss DNR or withdrawal of care, Hospice)? DNR status @ -No What co-morbidities impacted this encounter? (DM, HTN, Smoking, COPD, CAD, Cancer, CVA, ARF, Chemo, Hep., AIDS, mental health diagnosis, sleep apnea, morbid obesity)? @ -None Was patient admitted / discharged? Hospital course, mention meds given and route, prescriptions, significant lab abnormalities, going to OR and other pertinent info. @ -38-year-old male presenting chief complaint of abdominal pain. History of chronic abdominal pain. States that he is concerned that he is continuing to have this episode of pain and is requesting a CT scan. Lab work shows creatinine 1.88 BUN 37, this is in line with his baseline and history of chronic kidney disease. No leukocytosis or anemia. CT shows no acute findings to account for the patient's symptoms. After pain medication the patient is reassessed and he reports improvement in his symptoms. He is educated on today's findings and discharged home. Follow-up with PCP. Report back to ER with any new or worsening symptoms. Discussed return parameters and answered all questions. Patient conveyed verbal understanding and agreed to the plan. I discussed this case in detail with my attending Dr. Woodruff Undiagnosed new problem with uncertain prognosis? @ -No Drug Therapy requiring intensive monitoring for toxicity (Heparin, Nitro, Insulin, Cardizem)? @ -No Were any procedures done? @ -No Diagnosis/symptom? @ -Abdominal pain Acute, or Chronic, or Acute on Chronic? @ -Acute on chronic Uncomplicated (without systemic symptoms) or Complicated (systemic symptoms)? @ -uncomplicated Side effects of treatment? @ -No Exacerbation, Progression, or Severe Exacerbation? @ -No Poses a threat to life or bodily function? How? (Chest pain, [place], [place], pneumonia, PE, COPD, DKA, ARF, appy, cholecystitis, CVA, Diverticulitis, Homicidal, Suicidal, threat to staff... and all critical care pts) @ -Low likelihood - Lab Data Result diagrams: 02/01/24 20:29 02/01/24 20:29 Lab Results 02/01/24 02/01/24 02/01/24 Range/Units 20:29 20:29 20:29 WBC 6.6 (3.8-10.6) k/uL RBC 5.63 (4.30-5.90) m/uL Hgb 16.3 (13.0-17.5) gm/dL Hct 49.9 (39.0-53.0) % MCV 88.7 (80.0-100.0) fL MCH 29.0 (25.0-35.0) pg MCHC 32.7 (31.0-37.0) g/dL RDW 14.0 (11.5-15.5) % Plt Count 161 (150-450) k/uL MPV 7.7 Neutrophils % 77 % Lymphocytes % 10 % Monocytes % 8 % Eosinophils % 3 % Basophils % 0 % Neutrophils # 5.1 (1.3-7.7) k/uL Lymphocytes # 0.7 L (1.0-4.8) k/uL Monocytes # 0.5 (0-1.0) k/uL Eosinophils # 0.2 (0-0.7) k/uL Basophils # 0.0 (0-0.2) k/uL Hypochromasia Slight PT (10.0-12.5) sec INR (<1.2) APTT (22.0-30.0) sec Sodium 139 (137-145) mmol/L Potassium 4.7 (3.5-5.1) mmol/L Chloride 111 H (98-107) mmol/L Carbon Dioxide 21 L (22-30) mmol/L Anion Gap 7 mmol/L BUN 37 H (9-20) mg/dL Creatinine 1.88 H (0.66-1.25) mg/dL Est GFR (CKD-EPI)AfAm 51 (>60 ml/min/1.73 sqM) Est GFR (CKD-EPI)NonAf 45 (>60 ml/min/1.73 sqM) Glucose 85 (74-99) mg/dL Plasma Lactic Acid Niko 1.0 (0.7-2.0) mmol/L Calcium 9.7 (8.4-10.2) mg/dL Total Bilirubin 0.4 (0.2-1.3) mg/dL AST 32 (17-59) U/L ALT 36 (4-49) U/L Alkaline Phosphatase 107 (38-126) U/L Total Protein 6.7 (6.3-8.2) g/dL Albumin 4.0 (3.5-5.0) g/dL Amylase 110 (30-110) U/L Lipase 276 (23-300) U/L Urine Color Urine Appearance (Clear) Urine pH (5.0-8.0) Ur Specific [place] (1.001-1.035) Urine Protein (Negative) Urine Glucose (UA) (Negative) Urine Ketones (Negative) Urine Blood (Negative) Urine Nitrite (Negative) Urine Bilirubin (Negative) Urine Urobilinogen (<2.0) mg/dL Ur Leukocyte Esterase (Negative) Urine RBC (0-5) /hpf Urine WBC (0-5) /hpf Ur Squamous Epith Cells (0-4) /hpf Urine Mucus (None) /hpf 02/01/24 02/01/24 Range/Units 21:08 21:08 WBC (3.8-10.6) k/uL RBC (4.30-5.90) m/uL Hgb (13.0-17.5) gm/dL Hct (39.0-53.0) % MCV (80.0-100.0) fL MCH (25.0-35.0) pg MCHC (31.0-37.0) g/dL RDW (11.5-15.5) % Plt Count (150-450) k/uL MPV Neutrophils % % Lymphocytes % % Monocytes % % Eosinophils % % Basophils % % Neutrophils # (1.3-7.7) k/uL Lymphocytes # (1.0-4.8) k/uL Monocytes # (0-1.0) k/uL Eosinophils # (0-0.7) k/uL Basophils # (0-0.2) k/uL Hypochromasia PT 10.3 (10.0-12.5) sec INR 0.9 (<1.2) APTT 24.4 (22.0-30.0) sec Sodium (137-145) mmol/L Potassium (3.5-5.1) mmol/L Chloride (98-107) mmol/L Carbon Dioxide (22-30) mmol/L Anion Gap mmol/L BUN (9-20) mg/dL Creatinine (0.66-1.25) mg/dL Est GFR (CKD-EPI)AfAm (>60 ml/min/1.73 sqM) Est GFR (CKD-EPI)NonAf (>60 ml/min/1.73 sqM) Glucose (74-99) mg/dL Plasma Lactic Acid Niko (0.7-2.0) mmol/L Calcium (8.4-10.2) mg/dL Total Bilirubin (0.2-1.3) mg/dL AST (17-59) U/L ALT (4-49) U/L Alkaline Phosphatase (38-126) U/L Total Protein (6.3-8.2) g/dL Albumin (3.5-5.0) g/dL Amylase (30-110) U/L Lipase (23-300) U/L Urine Color Colorless Urine Appearance Clear (Clear) Urine pH 6.0 (5.0-8.0) Ur Specific [place] 1.014 (1.001-1.035) Urine Protein 1+ H (Negative) Urine Glucose (UA) Negative (Negative) Urine Ketones Negative (Negative) Urine Blood Negative (Negative) Urine Nitrite Negative (Negative) Urine Bilirubin Negative (Negative) Urine Urobilinogen <2.0 (<2.0) mg/dL Ur Leukocyte Esterase Negative (Negative) Urine RBC <1 (0-5) /hpf Urine WBC <1 (0-5) /hpf Ur Squamous Epith Cells <1 (0-4) /hpf Urine Mucus Rare H (None) /hpf Disposition Clinical Impression: Chronic abdominal pain Disposition: HOME SELF-CARE Condition: Good Instructions (If sedation given, give patient instructions): Abdominal Pain (ED) Additional Instructions: Follow-up with PCP. Report back to ER with any new or worsening symptoms. Is patient prescribed a controlled substance at d/c from ED?: No Referrals: Maksim Schultz MD [Primary Care Provider] - 1-2 days Time of Disposition: 22:38
[2024-02-01 23:02] VITALS: BP 148/94; PULSE 101
== END 2024-02-01 23:15 | disposition home or self-care (01) ==
LOC: EC 19:33
DX: G89.29 Other chronic pain (principal); R10.9 Unspecified abdominal pain; I10 Essential (primary) hypertension
CPT/HCPCS: 36415; 80053; 82150; 83605; 83690; 85025; 85610; 85730; 81001; 74177; 96374; 96375; 96376; 99284; J2405; J1170; Q9967

== ENCOUNTER 2024-02-17 00:23 | Observation (INO) | payer BC, OTHER ==
--- NOTE | 2024-02-17 01:04 | ED ---
Abdominal Pain HPI - General Stated Complaint: Abdominal Pain Time Seen by Provider: 02/17/24 01:03 Source: patient, RN notes reviewed Mode of arrival: EMS Limitations: no limitations - History of Present Illness Initial Comments: 36-year-old male presented to ER via EMS with a chief complaint of abdominal pain. Patient has an extensive medical history including liver failure and chronic kidney disease. Patient was on dialysis but is no longer receiving treatments. Patient does have a history of alcoholism and is 5 years sober. He does have a history of pancreatitis and states pain is currently feeling similar. He describes it as a sharp left upper quadrant abdominal pain. He does report intermittent heartburn, nausea and vomiting. Reports recent diarrhea. Has not taken anything for pain at this time. Patient received 4 mg morphine and Zofran for symptom control in the ER. Patient reports nausea has mildly improved. No fevers or chills. No other complaints. - Related Data Home Medications Medication Instructions Recorded Confirmed QUEtiapine [SEROquel] 50 mg PO HS 09/08/19 07/10/23 Sodium Bicarbonate 650 mg PO BID 07/16/22 07/10/23 calcitrioL 0.25 mcg PO TUTH 07/16/22 07/10/23 Ergocalciferol [Vitamin D2 (1250 1,250 mcg PO Q30D 08/14/22 07/10/23 Mcg = 05501 Iu)] Sildenafil Citrate 100 mg PO DAILY PRN 01/05/23 07/10/23 Losartan-Hctz 50-12.5 mg [Hyzaar 1 tab PO DAILY 06/15/23 07/10/23 50-12.5] Naloxone HCl [Narcan] 4 mg NASAL ONCE PRN 06/15/23 07/10/23 Naproxen [Naprosyn] 500 mg PO BID PRN 06/15/23 07/10/23 Ondansetron Odt [Zofran ODT] 4 mg PO Q6H PRN 06/18/23 07/10/23 Dextroamphetamine/Amphetamine 30 mg PO BID 07/10/23 07/10/23 [Adderall] HYDROcodone/APAP 7.5-325MG [[place] 1 tab PO Q6H PRN 07/10/23 07/10/23 7.5-325] Allergies Allergy/AdvReac Type Severity Reaction Status Date / Time No Known Allergies Allergy Verified 02/17/24 01:37 Review of Systems ROS Statement: Those systems with pertinent positive or pertinent negative responses have been documented in the HPI. ROS Other: All systems not noted in ROS Statement are negative. Past Medical History Past Medical History: Dialysis, Hypertension, Liver Disease, Pneumonia, Renal Disease Additional Past Medical History / Comment(s): ETOH abuse, alcoholic hepatitis, 02/05/17 serology lab +for hepatitis C but pt unawarehas antibodies, B12 defici ency, hx of IVDA-heroin but none for almost 4. yrs, 03-14-2020 last dialysis History of Any Multi-Drug Resistant Organisms: None Reported, C-DIFF Date of last positivie culture/infection: 2018 MDRO Source:: stool Past Surgical History: Cholecystectomy Additional Past Surgical History / Comment(s): tracheotomy, PEG tube placement, stent in gall bladder and removed , L arm fistula Past Anesthesia/Blood Transfusion Reactions: No Reported Reaction Past Psychological History: ADD/ADHD Smoking Status: Vaper Past Alcohol Use History: None Reported Past Drug Use History: None Reported - Past Family History Father Family Medical History: No Reported History Additional Family Medical History / Comment(s): Father is a heroin addict clean 2-1/2 years now. Mother Family Medical History: Diabetes Mellitus, Hypertension General Exam Limitations: no limitations General appearance: alert, in no apparent distress Respiratory exam: Present: normal lung sounds bilaterally. Absent: respiratory distress, wheezes, rales, rhonchi, stridor Cardiovascular Exam: Present: regular rate, normal rhythm, normal heart sounds. Absent: systolic murmur, diastolic murmur, rubs, gallop, clicks GI/Abdominal exam: Present: soft, tenderness (Left upper quadrant), normal bowel sounds Neurological exam: Present: alert, oriented X3, CN II-XII intact Skin exam: Present: warm, dry, intact, normal color. Absent: rash Course Vital Signs 02/17/24 02/17/24 00:30 02:37 Temperature 97.9 F Pulse Rate 83 82 Respiratory 16 16 Rate Blood Pressure 132/84 128/83 O2 Sat by Pulse 99 99 Oximetry - Reevaluation(s) Reevaluation #1: 02/17/24 03:[address] Schultz for admission. Medical Decision Making - Medical Decision Making Was pt. sent in by a medical professional or institution (MARIA TERESA Mcfarland, UNITIZER, urgent care, hospital, or shelter...) When possible be specific @ -No Did you speak to anyone other than the patient for history (EMS, parent, family, police, friend...)? What history was obtained from this source @ -No Did you review nursing and triage notes (agree or disagree)? Why? @ -I reviewed and agree with nursing and triage notes Were old charts reviewed (outside hosp., previous admission, EMS record, old EKG, old radiological studies, urgent care reports/EKG's, shelter records)? Report findings @ -No old charts were reviewed Differential Diagnosis (chest pain, altered mental status, abdominal pain women, abdominal pain men, vaginal bleeding, weakness, fever, dyspnea, syncope, headache, dizziness, GI bleed, back pain, seizure, CVA, palpatations, mental health, musculoskeletal)? @ -Differential Abdominal Pain Men: Appendicitis, cholecystitis, diverticulosis, ischemic bowel, pancreatitis, hepatitis, UTI, gastroenteritis, AAA, incarcerated hernia, bowel obstruction, constipation, inflammatory bowel, hepatitis, peptic ulcer disease, splenic infarction, perforated viscus, testicular torsion, this is not meant to be an all-inclusive list EKG interpreted by me (3pts min.). @ -None done X-rays interpreted by me (1pt min.). @ -None done CT interpreted by me (1pt min.). @ -None done U/S interpreted by me (1pt. min.). @ -None done What testing was considered but not performed or refused? (CT, X-rays, U/S, labs)? Why? @ -CT abdomen pelvis considered but not performed. Laboratory studies will be obtained prior to CT as patient reports pain feels similar to prior bouts of pancreatitis. Risk to benefit ratio discussed with patient who is agreeable with this. What meds were considered but not given or refused? Why? @ -None Did you discuss the management of the patient with other professionals (professionals i.e. MARIA TERESA Mcfarland, UNITIZER, lab, RT, psych nurse, social work program coordinator, respiratory coordinator, teacher, certified juvenile probation officer, director case)? Give summary @ -Case discussed with Dr. Duffy for admission. Was smoking cessation discussed for >3mins.? @ -No Was critical care preformed (if so, how long)? @ -No Were there social determinants of health that impacted care today? How? (Homelessness, low income, unemployed, alcoholism, drug addiction, trans portation, low edu. Level, literacy, decrease access to med. care, care home, rehab)? @ -No Was there de-escalation of care discussed even if they declined (Discuss DNR or withdrawal of care, Hospice)? DNR status @ -No What co-morbidities impacted this encounter? (DM, HTN, Smoking, COPD, CAD, Cancer, CVA, ARF, Chemo, Hep., AIDS, mental health diagnosis, sleep apnea, morbid obesity)? @ -Chronic kidney disease, history liver failure Was patient admitted / discharged? Hospital course, mention meds given and route, prescriptions, significant lab abnormalities, going to OR and other pertinent info. @ -Admitted. 38 year old male presenting to the ER via EMS with a chief complaint of abdominal pain. History and physical exam completed. Vitals within normal limits. Exam remarkable for left upper quadrant abdominal tenderness to palpation. Normal bowel sounds. No rebound or guarding. Exam otherwise unremarkable. CBC showing thrombocytopenia at 140 likely for patient history of alcohol use. CMP showing GFR 38, BUN 34, creatinine 2.15. Thia appears to be patient baseline. Lipase is mildly elevated at 480. UA pending. Patient received 1 L IV fluids, IV Dilaudid and Zofran for symptom control. Patient reports mild improvement to an 8 out of 10. Admission considered for int ractable pain. Case discussed with Dr. Schultz for admission. Patient agreeable for admission. Patient admitted in stable condition for further evaluation and treatment. Case discussed with ED attending, Dr. Robertson. Undiagnosed new problem with uncertain prognosis? @ -No Drug Therapy requiring intensive monitoring for toxicity (Heparin, Nitro, Insulin, Cardizem)? @ -No Were any procedures done? @ -No Diagnosis/symptom? @ -Intractable pain/CKD/elevated lipase Acute, or Chronic, or Acute on Chronic? @ -Acute Uncomplicated (without systemic symptoms) or Complicated (systemic symptoms)? @ -Complicated Side effects of treatment? @ -No Exacerbation, Progression, or Severe Exacerbation? @ -No Poses a threat to life or bodily function? How? (Chest pain, [place], [place], pneumonia, PE, COPD, DKA, ARF, appy, cholecystitis, CVA, Diverticulitis, Homicidal, Suicidal, threat to staff... and all critical care pts) @ -No - Lab Data Result diagrams: 02/17/24 00:54 02/17/24 00:54 Lab Results 02/17/24 02/17/24 02/17/24 Range/Units 00:54 00:54 00:55 WBC 4.1 (3.8-10.6) k/uL RBC 5.18 (4.30-5.90) m/uL Hgb 14.3 (13.0-17.5) gm/dL Hct 46.0 (39.0-53.0) % MCV 88.7 (80.0-100.0) fL MCH 27.6 (25.0-35.0) pg MCHC 31.1 (31.0-37.0) g/dL RDW 13.6 (11.5-15.5) % Plt Count 140 L (150-450) k/uL MPV 7.8 Neutrophils % 58 % Lymphocytes % 29 % Monocytes % 7 % Eosinophils % 4 % Basophils % 1 % Neutrophils # 2.4 (1.3-7.7) k/uL Lymphocytes # 1.2 (1.0-4.8) k/uL Monocytes # 0.3 (0-1.0) k/uL Eosinophils # 0.2 (0-0.7) k/uL Basophils # 0.0 (0-0.2) k/uL Hypochromasia Slight Sodium 139 (137-145) mmol/L Potassium 4.5 (3.5-5.1) mmol/L Chloride 108 H (98-107) mmol/L Carbon Dioxide 25 (22-30) mmol/L Anion Gap 6 mmol/L BUN 34 H (9-20) mg/dL Creatinine 2.15 H (0.66-1.25) mg/dL Est GFR (CKD-EPI)AfAm 44 (>60 ml/min/1.73 sqM) Est GFR (CKD-EPI)NonAf 38 (>60 ml/min/1.73 sqM) Glucose 84 (74-99) mg/dL Plasma Lactic Acid Niko 0.9 (0.7-2.0) mmol/L Calcium 9.2 (8.4-10.2) mg/dL Total Bilirubin 0.4 (0.2-1.3) mg/dL AST 29 (17-59) U/L ALT 19 (4-49) U/L Alkaline Phosphatase 93 (38-126) U/L Total Protein 6.1 L (6.3-8.2) g/dL Albumin 3.7 (3.5-5.0) g/dL Amylase 98 (30-110) U/L Lipase 480 H (23-300) U/L Disposition Clinical Impression: Elevated lipase, CKD (chronic kidney disease), Intractable pain Disposition: ADMITTED IP TO THIS HOSP Condition: Stable Referrals: Maksim Schultz MD [Primary Care Provider] - 1-2 days Time of Disposition: 03:25
[2024-02-17] MEDS: HYDROmorphone 1 MG/ML 1 ML SYRINGE IVP STA ×2 (01:17→02:38)
[2024-02-17] MEDS: SODIUM CHLORIDE 0.9% 1,000 ML IV STA (01:18)
[2024-02-17 01:25] LABS: Basophils % (A) 1 %; Eosinophils # (A) 0.2 k/uL (0-0.7); Eosinophils % (A) 4 %; HGB 14.3 gm/dL (13.0-17.5); Hypochromasia Slight; Lymphocytes # (A) 1.2 k/uL (1.0-4.8); Lymphocytes % (A) 29 %; MCH 27.6 pg (25.0-35.0); MCHC 31.1 g/dL (31.0-37.0); MCV 88.7 fL (80.0-100.0); Mean Platelet Volume 7.8; Monocytes # (A) 0.3 k/uL (0-1.0); Monocytes % (A) 7 %; Neutrophils # (A) 2.4 k/uL (1.3-7.7); Neutrophils % (A) 58 %; Platelet Count 140 k/uL (150-450); RBC 5.18 m/uL (4.30-5.90); RDW 13.6 % (11.5-15.5); WBC 4.1 k/uL (3.8-10.6)
[2024-02-17 01:43] LABS: ALT 19 U/L (4-49); AST 29 U/L (17-59); African American GFR (CKD) 44 (>60 ml/min/1.73 sqM); Albumin 3.7 g/dL (3.5-5.0); Alkaline Phosphatase 93 U/L (38-126); Amylase 98 U/L (30-110); Anion Gap 6 mmol/L; Blood Urea Nitrogen 34 mg/dL (9-20); Calcium 9.2 mg/dL (8.4-10.2); Carbon Dioxide 25 mmol/L (22-30); Chloride 108 mmol/L (98-107); Glucose 84 mg/dL (74-99); Lipase 480 U/L (23-300); Non-African American GFR(CKD) 38 (>60 ml/min/1.73 sqM); Potassium 4.5 mmol/L (3.5-5.1); Sodium 139 mmol/L (137-145); Total Bilirubin 0.4 mg/dL (0.2-1.3); Total Protein 6.1 g/dL (6.3-8.2)
[2024-02-17] MEDS ORDERED: ACETAMINOPHEN TAB 325 MG TAB PO PRN (03:15)
[2024-02-17] MEDS ORDERED: NALOXONE 0.4 MG/ML 1 ML VIAL IV PRN (03:15)
[2024-02-17 03:34] LABS: Appearance,Urine Clear (Clear); Bilirubin,Urine Negative (Negative); Blood,Urine Negative (Negative); Color,Urine Colorless; Glucose,Urine (UA) Negative (Negative); Ketones,Urine Negative (Negative); Leukocyte Esterase,Urine Negative (Negative); Mucus,Urine Rare /hpf; Nitrite,Urine Negative (Negative); Protein,Urine 1+ (Negative); RBC,Urine <1 /hpf (0-5); Specific Gravity,Urine 1.014 (1.001-1.035); Urobilinogen,Urine <2.0 mg/dL (<2.0); WBC,Urine <1 /hpf (0-5)
[2024-02-17] MEDS: SODIUM CHLORIDE 0.9% 1,000 ML IV SCH (03:38)
[2024-02-17] MEDS: HYDROmorphone 1 MG/ML 1 ML SYRINGE IVP PRN (04:22)
[2024-02-17] MEDS: ONDANSETRON 4 MG/2 ML VIAL IVP PRN (06:06)
[2024-02-17] MEDS ORDERED: NON FORMULARY DRUG (Sildenafil Citrate [Sildenafil Citrate] 100 MG Tablet) PO PRN (13:23)
[2024-02-17] MEDS: IPRATROPIUM 0.5 MG/2.5 ML NEBU INHALATION SCH (15:35)
[2024-02-17] MEDS: amLODIPine 5 MG TAB PO STA (16:03)
--- NOTE | 2024-02-17 18:00 | CT ---
EXAMINATION TYPE: CT abdomen pelvis wo con DATE OF EXAM: 02/17/2024 COMPARISON: 02/01/2024 INDICATION: PAIN DLP: 1007 mGycm, Automated exposure control for dose reduction was used. CONTRAST: 0 mL of Isovue 300. Study performed without Oral Contrast TECHNIQUE: Axial images were obtained from above the diaphragm to the pubic rami in the axial plane a t 5 mm thick sections. Reconstructed images are reviewed on the computer in the coronal plane. FINDINGS: Limited CT sections are obtained the lung bases. The lungs and the [id number] are clear. There is a small right pleural effusion present.. CT ABDOMEN: Liver: Normal Spleen: Normal Pancreas: Normal. No fluid adjacent to the pancreas is evident. No pancreatic duct dilatation is evid ent. No pseudocyst formation is evident. No adjacent inflammatory changes. Adrenal glands: The adrenal glands are normal. Gallbladder: Not identified. There is ar 0.5 cm calcification which may be within the common bile pao t. Series 3 image 40. This appears to be present previously no distal common bile duct dilatation echo dent. Kidneys: No masses are evident. No hydronephrosis is present. No cysts are present. No renal stone s are evident. Aorta: Normal Inferior vena cava: Normal. CT PELVIS: Loops of bowel within the abdomen and pelvis are normal. Few diverticuli within the sigmoid colon. There are loops of bowel which are incompletely distended or lack oral contrast limiting their evalu ation. Appendix: Not identified. No dilated tubular structure or inflammatory changes. Urinary bladder: Normal. Genitourinary structures: Prostate is normal. Osseous structures: No suspicious lytic or sclerotic lesions. IMPRESSION: 1. No suspicious acute changes to account for abdomen pain. 2. Common bile duct stone is not excluded. This appears stable from earlier exam. 3. No radiographic changes to suggest acute pancreatitis. [facility], , 02/17/2024 5:58 PM
[2024-02-17] MEDS: QUEtiapine 50 MG TAB PO SCH (19:54)
[2024-02-17] MEDS: FORMOTEROL FUMARATE 20 MCG/2 ML NEBU INHALATION SCH (20:13)
--- NOTE | 2024-02-18 02:16 | HP ---
HISTORY AND PHYSICAL A 38-year-old white male, history of pancreatitis and chronic renal disease, came to the hospital with history of chronic renal disease, on dialysis; no longer receiving treatments. History of alcohol, he is 5 years sober. History of pancreatitis. He is currently is feeling similar. He has a sharp left upper quadrant abdominal pain. He does report intermittent heartburn, nausea, vomiting. He is given some morphine and Zofran for symptoms. Nausea is mildly improved. HOME MEDICINES: Seroquel 50 q.h.s., sodium bicarb 650 b.i.d., calcitriol 0.25 Thursday and , vitamin D 1250 every day, ondansetron daily, Naprosyn, Zofran, losartan, hydrochlorothiazide 50/12.5 daily, Dextroamphetamine 30 b.i.d., [place] 7.5 q.6 hours. ALLERGIES: No known drug allergies. REVIEW OF SYSTEMS: A 14-point review of systems otherwise negative. He has been sick and congested he says with cough and phlegm production over the last 2 weeks. PAST MEDICAL HISTORY: History of pneumonia, chronic pancreatitis, end-stage renal disease, pneumonia, hypertension, asthma/COPD, history of alcohol abuse, B12 deficiency, history of heroin abuse. PAST SURGICAL HISTORY: Cholecystectomy, tracheotomy, PEG tube placement, ADHD. SOCIAL HISTORY: Smoking, vapes. FAMILY HISTORY: Father was a heavy addict. Mother, diabetes mellitus, hypertension,. PHYSICAL EXAMINATION: VITAL SIGNS: Temperature 97.9, pulse 80 to 83, respiratory rate 16 to 18, blood pressure 120s to 130s over 80s, O2 99% on room air. CARDIOVASCULAR: S1, S2. GI: Soft. SKIN: Warm, dry, intact. NEUROLOGIC: Cranial nerves intact. LABORATORY DATA: BUN is 34, creatinine is 2.15. ASSESSMENT: Acute on chronic renal insufficiency, elevated lipase, retractable abdominal pain, pancreatitis, rule out pneumonia and do a chest x-ray or CT scan on his chest and abdomen for pancreatitis; rule out pneumonia. PROGNOSIS: Guarded. Please see further orders. MMODL / IJN: [id number] /
[2024-02-18] MEDS: PANTOPRAZOLE 40 MG TABLET PO SCH (07:23)
[2024-02-18] MEDS: MONTELUKAST 10 MG TAB PO SCH (07:23)
[2024-02-18] MEDS ORDERED: NON FORMULARY DRUG (Tiotropium Br/Olodaterol Hcl [Stiolto Respimat Inhaler (60)] 4 GM Mist INHALATION SCH (08:00)
[2024-02-18 08:30] LABS: Basophils # (A) 0.03 X 10*3/uL (0.00-0.10); Basophils % (A) 0.6 %; Eosinophils # (A) 0.18 X 10*3/uL (0.04-0.35); Eosinophils % (A) 3.6 %; HGB 14.9 g/dL (13.0-17.0); Lymphocytes # (A) 1.48 X 10*3/uL (0.90-5.00); Lymphocytes % (A) 29.5 %; MCH 28.1 pg (27.0-32.0); MCV 90.4 FL (80.0-97.0); Monocytes # (A) 0.51 X 10*3/uL (0.20-1.00); Monocytes % (A) 10.2 %; NRBC Per 100 WBC 0 X 10*3/uL (0.00-0.01); Neutrophils # (A) 2.79 X 10*3/uL (1.80-7.70); Neutrophils % (A) 55.5 %; Platelet Count 158 X 10*3/uL (140-440); RBC 5.31 X 10*6/uL (4.40-5.60); RDW 13.5 % (11.5-14.5); WBC 5.02 X 10*3/uL (4.50-10.00)
[2024-02-18 09:21] LABS: ALT 22 U/L (10-49); AST 27 U/L (14-35); Albumin/Globulin Ratio 1.67 Ratio (1.60-3.17); Alkaline Phosphatase 94 U/L (41-126); BUN/Creat Ratio 10.74 Ratio (12.00-20.00); Blood Urea Nitrogen 20.4 mg/dL (9.0-27.0); Calcium 9.2 mg/dL (8.7-10.3); Carbon Dioxide 21.4 mmol/L (21.6-31.8); Chloride 106 mmol/L (96-109); Globulin 2.4 g/dL (1.6-3.3); Glucose 68 mg/dL (70-110); Lipase 70 U/L (14-60); Potassium 4.6 mmol/L (3.5-5.5); Sodium 138 mmol/L (135-145); Total Bilirubin 0.2 mg/dL (0.3-1.2); Total Protein 6.4 g/dL (6.2-8.2)
[2024-02-18] MEDS: PATIENT'S OWN (Dextroamphetamine/Amphetamine [Adderall] 30 MG Tablet) PO SCH (11:15)
--- NOTE | 2024-02-18 13:36 | P.GSCN ---
History of Present Illness Consult date: 02/18/24 History of present illness: CHIEF COMPLAINT: Abdominal pain HISTORY OF PRESENT ILLNESS: This is a 38-year-old male with a known history of pancreatitis. Patient with history of liver failure and renal failure requiring hemodialysis for a year. He also has a past history of alcohol use and has been sober for about 5 years. History of IVDA use and has not used in over 9 years. Patient presents to the ER with 5-day history of abdominal pain as well as vomiting x 2 days. He reports his stools have been loose. He denies any blood in his stools. Patient does report diffuse pain but also pain across the lower abdomen. Patient reports that his pain feels very similar to his prior pancreatitis attacks. Patient does have a history of a cholecystectomy in 2023. Patient had a trans papillary stent for gallbladder drainage at placed at [facility] in 2018 and then removal of that stent in January 2023. Patient CT scan abdomen pelvis reports no evidence of pancreatitis but did report 0.5 cm calcification which may be within the common bile duct. This appears stable from earlier. Common bile duct stone is not excluded. Patient has never had a colonoscopy PAST MEDICAL HISTORY: See below PAST SURGICAL HISTORY: See below MEDICATIONS: See below ALLERGIES: See below SOCIAL HISTORY: No illicit drug use. REVIEW OF SYSTEMS: CONSTITUTIONAL: Denies fever or chills. HEENT: Denies blurred vision, vision changes, or eye pain. Denies hemoptysis CARDIOVASCULAR: Denies chest pain or pressure. RESPIRATORY: No shortness of breath. GASTROINTESTINAL: See HPI for pertinent findings HEMATOLOGIC: Denies bleeding disorders. GENITOURINARY: Denies any blood in urine or increased urinary frequency. SKIN: Denies pruitis. Denies rash. PHYSICAL EXAM: VITAL SIGNS: Reviewed GENERAL: Well-developed in no acute distress. HEENT: No sclera icterus. Extraocular movements grossly intact. Moist buccal mucosa. Head is atraumatic, normocephalic. No nasal drainage. ABDOMEN: Soft. Nondistended. Diffuse tenderness. NEUROLOGIC: Alert and oriented. Cranial nerves II through XII grossly intact. LABORATORY DATA: WBC 5.02 Hgb 14.9 platelets 158 Sodium is 138 potassium 4.6 creatinine 1.9 Lactic acid 0.9 Total bilirubin 0.2 AST 27 ALT 22 alk phos is 94 albumin 4.0 lipase has come down from 4 80-70 IMAGING: CT scan findings as stated above ASSESSMENT: 1. Chronic pancreatitis 2. Abdominal pain 3. History of cholecystectomy 4. Prior history of EtOH use and IVDA use PLAN: -Check abdominal ultrasound for further evaluation of abdominal pain and possible CBD stone -Continue clear liquid diet -Continue IV fluids -Continue supportive care -No surgical intervention planned Physician Brass Reclaimer note has been reviewed by physician. Signing provider agrees with the documented findings, assessment, and plan of care. Past Medical History Past Medical History: Dialysis, Hypertension, Liver Disease, Pneumonia, Renal Disease Additional Past Medical History / Comment(s): ETOH abuse last drink 03/06/2019, alcoholic hepatitis, 02/05/17 serology lab +for hepatitis C but pt unawarehas antibodies, B12 deficiency, hx of IVDA-heroin but none for almost 9. yrs, 03-14-2020 last dialysis History of Any Multi-Drug Resistant Organisms: None Reported, C-DIFF Year Discovered:: 2018 MDRO Source:: stool Past Surgical History: Cholecystectomy Additional Past Surgical History / Comment(s): tracheotomy, PEG tube placement, stent in gall bladder and removed , L arm fistula Past Anesthesia/Blood Transfusion Reactions: No Reported Reaction Smoking Status: Vaper - Past Family History Father Family Medical History: No Reported History Additional Family Medical History / Comment(s): Father is a heroin addict clean 2-1/2 years now. Mother Family Medical History: Diabetes Mellitus, Hypertension Medications and Allergies Home Medications Medication Instructions Recorded Confirmed Type QUEtiapine [SEROquel] 50 mg PO HS 09/08/19 02/17/24 History calcitrioL 0.25 mcg PO TUFR 07/16/22 02/17/24 History Ergocalciferol [Vitamin D2 (1250 1,250 mcg PO Q30D 08/14/22 02/17/24 History Mcg = 87116 Iu)] Sildenafil Citrate 100 mg PO DAILY PRN 01/05/23 02/17/24 History Losartan-Hctz 50-12.5 mg [Hyzaar 1 tab PO DAILY 06/15/23 02/17/24 History 50-12.5] Dapagliflozin Propanediol [Farxiga] 5 mg PO DAILY 02/17/24 02/17/24 History Dextroamphetamine/Amphetamine 30 mg PO BID 02/17/24 02/17/24 History [Adderall] Montelukast [Singulair] 10 mg PO DAILY 02/17/24 02/17/24 History Omeprazole 40 mg PO DAILY 02/17/24 02/17/24 History Tiotropium Br/Olodaterol HCl 2 puff INHALATION RT-DAILY 02/17/24 02/17/24 History [Stiolto Respimat Inhaler (60)] Allergies Allergy/AdvReac Type Severity Reaction Status Date / Time No Known Allergies Allergy Verified 02/17/24 08:57 Surgical - Exam Vital Signs Temp Pulse Resp BP Pulse Ox 97.9 F 83 16 132/84 99 02/17/24 00:30 02/17/24 00:30 02/17/24 00:30 02/17/24 00:30 02/17/24 00:30 Results - Labs 02/18/24 03:14 02/18/24 03:14 Abnormal Lab Results - Last 24 Hours (Table) 02/18/24 02/18/24 Range/Units 03:14 03:14 MCHC 31.0 L (32.0-37.0) g/dL Carbon Dioxide 21.4 L (21.6-31.8) mmol/L Creatinine 1.9 H (0.6-1.5) mg/dL Est GFR (CKD-EPI) 46 L (>=60) BUN/Creatinine Ratio 10.74 L (12.00-20.00) Ratio Glucose 68 L (70-110) mg/dL Total Bilirubin 0.2 L (0.3-1.2) mg/dL Lipase 70 H (14-60) U/L Diabetes panel 02/18/24 Range/Units 03:14 Sodium 138 (135-145) mmol/L Potassium 4.6 (3.5-5.5) mmol/L Chloride 106 (96-109) mmol/L Carbon Dioxide 21.4 L (21.6-31.8) mmol/L BUN 20.4 (9.0-27.0) mg/dL Creatinine 1.9 H (0.6-1.5) mg/dL Glucose 68 L (70-110) mg/dL Calcium 9.2 (8.7-10.3) mg/dL AST 27 (14-35) U/L ALT 22 (10-49) U/L Alkaline Phosphatase 94 (41-126) U/L Total Protein 6.4 (6.2-8.2) g/dL Albumin 4.0 (3.8-4.9) g/dL Calcium panel 02/18/24 Range/Units 03:14 Calcium 9.2 (8.7-10.3) mg/dL Albumin 4.0 (3.8-4.9) g/dL Pituitary panel 02/18/24 Range/Units 03:14 Sodium 138 (135-145) mmol/L Potassium 4.6 (3.5-5.5) mmol/L Chloride 106 (96-109) mmol/L Carbon Dioxide 21.4 L (21.6-31.8) mmol/L BUN 20.4 (9.0-27.0) mg/dL Creatinine 1.9 H (0.6-1.5) mg/dL Glucose 68 L (70-110) mg/dL Calcium 9.2 (8.7-10.3) mg/dL Adrenal panel 02/18/24 Range/Units 03:14 Sodium 138 (135-145) mmol/L Potassium 4.6 (3.5-5.5) mmol/L Chloride 106 (96-109) mmol/L Carbon Dioxide 21.4 L (21.6-31.8) mmol/L BUN 20.4 (9.0-27.0) mg/dL Creatinine 1.9 H (0.6-1.5) mg/dL Glucose 68 L (70-110) mg/dL Calcium 9.2 (8.7-10.3) mg/dL Total Bilirubin 0.2 L (0.3-1.2) mg/dL AST 27 (14-35) U/L ALT 22 (10-49) U/L Alkaline Phosphatase 94 (41-126) U/L Total Protein 6.4 (6.2-8.2) g/dL Albumin 4.0 (3.8-4.9) g/dL
--- NOTE | 2024-02-18 14:43 | US ---
EXAMINATION TYPE: US gallbladder DATE OF EXAM: 02/18/2024 COMPARISON: CT CLINICAL INDICATION: Male, 38 years old with history of abdominal pain, evaluate for CBD stone/dilati on; ABD pain, GB removed TECHNIQUE: Multiple sonographic images of the right upper quadrant are obtained. FINDINGS: EXAM MEASUREMENTS: Liver Length: 14.5 cm CBD: 0.9 cm Right Kidney: 9.2 x 4.1 x 4.5 cm SORT MANAGER NOTES: Pancreas: Obscured by bowel gas Liver: Visualized portions appeared wnl Gallbladder: Surgically absent Evidence for sonographic Erazo's sign: No CBD: wnl post pallavi, unable to visualize a stone within duct Right Kidney: No evidence of hydro IMPRESSION: 1. No evidence for acute process. No organizing fluid collections. 2. Hepatic steatosis. [facility], , 02/18/2024 2:41 PM
[2024-02-18 19:50] VITALS: BP 148/87; PULSE 84; RESP 14; TEMP 98.3
[2024-03-01] MEDS ORDERED: ERGOCALCIFEROL 1,250 MCG (50,000 IU) CAPSULE PO SCH (09:00)
== END 2024-02-18 22:45 | disposition left against medical advice (07) ==
LOC: EC 00:23 → 5NMEDONC 05:38
PROVIDERS: ADMIT Family Medicine; ATTEND Family Medicine
DX: K86.1 Other chronic pancreatitis (principal); K72.90 Hepatic failure, unspecified without coma; I12.9 Hypertensive chronic kidney disease with stage 1 through stage 4 chronic kidney disease, or unspecified chronic kidney disease; N18.9 Chronic kidney disease, unspecified; R12 Heartburn; D69.6 Thrombocytopenia, unspecified; F10.21 Alcohol dependence, in remission; F17.290 Nicotine dependence, other tobacco product, uncomplicated; Z79.84 Long term (current) use of oral hypoglycemic drugs; Z79.899 Other long term (current) drug therapy; Z90.49 Acquired absence of other specified parts of digestive tract; Z87.898 Personal history of other specified conditions; Z53.29 Procedure and treatment not carried out because of patient's decision for other reasons
CPT/HCPCS: 36415; 74176; 76705; 80053; 81001; 82150; 83605; 83690; 85025; 94640; 96361; 96374; 96375; 96376; 99285

== ENCOUNTER 2024-02-19 19:47 | Inpatient (IN) | payer OTHER ==
--- NOTE | 2024-02-19 20:56 | ED ---
Abdominal Pain HPI - General Chief Complaint: Abdominal Pain Stated Complaint: Abd Pain Time Seen by Provider: 02/19/24 20:53 Source: patient, RN notes reviewed Mode of arrival: ambulatory Limitations: no limitations - History of Present Illness Initial Comments: 38-year-old male presenting for epigastric pain. Patient was recently admitted 2 days ago for this and was admitted for pancreatitis. Patient was being treated with IV fluids and symptomatic treatment, however patient reports he left AMA last night due to his daughter having an emergency. He reports he continues to have nausea, vomiting, diarrhea, and left upper quadrant abdominal pain. He has a complicated history of liver and kidney disease. Previous abdominal surgeries include cholecystectomy. - Related Data Home Medications Medication Instructions Recorded Confirmed QUEtiapine [SEROquel] 50 mg PO HS 09/08/19 02/17/24 calcitrioL 0.25 mcg PO TUFR 07/16/22 02/17/24 Ergocalciferol [Vitamin D2 (1250 1,250 mcg PO Q30D 08/14/22 02/17/24 Mcg = 62424 Iu)] Sildenafil Citrate 100 mg PO DAILY PRN 01/05/23 02/17/24 Losartan-Hctz 50-12.5 mg [Hyzaar 1 tab PO DAILY 06/15/23 02/17/24 50-12.5] Dapagliflozin Propanediol [Farxiga] 5 mg PO DAILY 02/17/24 02/17/24 Dextroamphetamine/Amphetamine 30 mg PO BID 02/17/24 02/17/24 [Adderall] Montelukast [Singulair] 10 mg PO DAILY 02/17/24 02/17/24 Omeprazole 40 mg PO DAILY 02/17/24 02/17/24 Tiotropium Br/Olodaterol HCl 2 puff INHALATION RT-DAILY 02/17/24 02/17/24 [Stiolto Respimat Inhaler (60)] Allergies Allergy/AdvReac Type Severity Reaction Status Date / Time No Known Allergies Allergy Verified 02/19/24 19:59 Review of Systems ROS Statement: Those systems with pertinent positive or pertinent negative responses have been documented in the HPI. ROS Other: All systems not noted in ROS Statement are negative. Past Medical History Past Medical History: Dialysis, Hypertension, Liver Disease, Pneumonia, Renal Disease Additional Past Medical History / Comment(s): ETOH abuse last drink 03/06/2019, alcoholic hepatitis, 02/05/17 serology lab +for hepatitis C but pt unawarehas antibodies, B12 deficiency, hx of IVDA-heroin but none for almost 9. yrs, 03-14-2020 last dialysis History of Any Multi-Drug Resistant Organisms: None Reported, C-DIFF Date of last positivie culture/infection: 2018 MDRO Source:: stool Past Surgical History: Cholecystectomy Additional Past Surgical History / Comment(s): tracheotomy, PEG tube placement, stent in gall bladder and removed , L arm fistula Past Anesthesia/Blood Transfusion Reactions: No Reported Reaction Past Psychological History: ADD/ADHD Smoking Status: Vaper Past Alcohol Use History: None Reported Past Drug Use History: None Reported - Past Family History Father Family Medical History: No Reported History Additional Family Medical History / Comment(s): Father is a heroin addict clean 2-1/2 years now. Mother Family Medical History: Diabetes Mellitus, Hypertension General Exam Limitations: no limitations General appearance: alert, in no apparent distress Head exam: Present: atraumatic, normocephalic, normal inspection Eye exam: Present: normal appearance, PERRL, EOMI. Absent: scleral icterus, conjunctival injection, periorbital swelling Respiratory exam: Present: normal lung sounds bilaterally. Absent: respiratory distress, wheezes, rales, rhonchi, stridor Cardiovascular Exam: Present: regular rate, normal rhythm, normal heart sounds. Absent: systolic murmur, diastolic murmur, rubs, gallop, clicks GI/Abdominal exam: Present: soft, normal bowel sounds. Absent: distended, tenderness, guarding, rebound, rigid Back exam: Absent: CVA tenderness (R), CVA tenderness (L) Neurological exam: Present: alert, oriented X3 Psychiatric exam: Present: normal affect, normal mood Skin exam: Present: warm, dry, intact, normal color. Absent: rash Course Vital Signs 02/19/24 02/19/24 02/19/24 19:54 21:07 21:57 Temperature 98.5 F 98.6 F Pulse Rate 100 Respiratory 16 16 16 Rate Blood Pressure 135/80 152/99 152/96 O2 Sat by Pulse 98 Oximetry 02/20/24 01:00 Temperature 98.6 F Pulse Rate 103 H Respiratory 16 Rate Blood Pressure 149/91 O2 Sat by Pulse Oximetry Medical Decision Making - Medical Decision Making Was pt. sent in by a medical professional or institution (MARIA TERESA Mcfarland, MANAGER ACADEMIC, urgent care, hospital, or long-term...) When possible be specific @ -No Did you speak to anyone other than the patient for history (EMS, parent, family, police, friend...)? What history was obtained from this source @ -No Did you review nursing and triage notes (agree or disagree)? Why? @ -I reviewed and agree with nursing and triage notes Were old charts reviewed (outside hosp., previous admission, EMS record, old EKG, old radiological studies, urgent care reports/EKG's, long-term records)? Report findings @ -No old charts were reviewed Differential Diagnosis (chest pain, altered mental status, abdominal pain women, abdominal pain men, vaginal bleeding, weakness, fever, dyspnea, syncope, headache, dizziness, GI bleed, back pain, seizure, CVA, palpatations, mental health, musculoskeletal)? @ -Differential Abdominal Pain Men: Appendicitis, cholecystitis, diverticulosis, ischemic bowel, pancreatitis, hepatitis, UTI, gastroenteritis, AAA, incarcerated hernia, bowel obstruction, constipation, inflammatory bowel, hepatitis, peptic ulcer disease, splenic infarction, perforated viscus, testicular torsion, this is not meant to be an all-inclusive list EKG interpreted by me (3pts min.). @ -None X-rays interpreted by me (1pt min.). @ -None done CT interpreted by me (1pt min.). @ -None done U/S interpreted by me (1pt. min.). @ -None done What testing was considered but not performed or refused? (CT, X-rays, U/S, labs)? Why? @ -CT considered but not performed What meds were considered but not given or refused? Why? @ -None Did you discuss the management of the patient with other professionals (professionals i.e. MARIA TERESA Mcfarland, MANAGER ACADEMIC, lab, RT, psych nurse, social sciences chair, pharmacy account director, teacher, safety officer, pillowcase turner)? Give summary @ -I spoke with Dr. Schultz who accepts admission at this time for intractable epigastric pain. Was smoking cessation discussed for >3mins.? @ -No Was critical care preformed (if so, how long)? @ -No Were there social determinants of health that impacted care today? How? (Homelessness, low income, unemployed, alcoholism, drug addiction, transportation, low edu. Level, literacy, decrease access to med. care, long-term, rehab)? @ -No Was there de-escalation of care discussed even if they declined (Discuss DNR or withdrawal of care, Hospice)? DNR status @ -No What co-morbidities impacted this encounter? (DM, HTN, Smoking, COPD, CAD, Cancer, CVA, ARF, Chemo, Hep., AIDS, mental health diagnosis, sleep apnea, morbid obesity)? @ -None Was patient admitted / discharged? Hospital course, mention meds given and route, prescriptions, significant lab abnormalities, going to OR and other pertinent info. @ -Patient was admitted. This is a 38-year-old male presenting with epigastric pain. Patient was recently admitted 2 days ago for intractable epigastric pain with elevated lipase levels however patient left AMA due to family emergency. Vital signs within normal limits. Patient was provided with IV fluids and analgesics. Laboratory studies including CBC, CMP, lactic acid, lipase remarkable for elevated kidney enzymes however appear to be at baseline when compared to previous visits. Lipase is 192, which is elevated from recent admission. Findings discussed with patient. Upon reevaluation, patient reports symptoms continue to be uncontrolled. I spoke with Dr. Schultz who accepts admission at this time for intractable epigastric pain. Patient is agreeable to plan. Case was discussed with my ED attending Dr. Alvarado. Undiagnosed new problem with uncertain prognosis? @ -No Drug Therapy requiring intensive monitoring for toxicity (Heparin, Nitro, Insulin, Cardizem)? @ -No Were any procedures done? @ -No Diagnosis/symptom? @ -Intractable epigastric pain Acute, or Chronic, or Acute on Chronic? @ -Acute Uncomplicated (without systemic symptoms) or Complicated (systemic symptoms)? @ -Uncomplicated Side effects of treatment? @ -No Exacerbation, Progression, or Severe Exacerbation? @ -No Poses a threat to life or bodily function? How? (Chest pain, [place], [place], pneumonia, PE, COPD, DKA, ARF, appy, cholecystitis, CVA, Diverticulitis, Homicidal, Suicidal, threat to staff... and all critical care pts) @ -No - Lab Data Result diagrams: 02/19/24 21:25 02/19/24 21:25 Lab Results 02/19/24 02/19/24 02/19/24 Range/Units 21:25 21:25 21:25 WBC 5.1 (3.8-10.6) k/uL RBC 5.81 (4.30-5.90) m/uL Hgb 16.1 (13.0-17.5) gm/dL Hct 51.7 (39.0-53.0) % MCV 89.0 (80.0-100.0) fL MCH 27.7 (25.0-35.0) pg MCHC 31.1 (31.0-37.0) g/dL RDW 13.6 (11.5-15.5) % Plt Count 182 (150-450) k/uL MPV 7.6 Neutrophils % 67 % Lymphocytes % 16 % Monocytes % 11 % Eosinophils % 3 % Basophils % 1 % Neutrophils # 3.4 (1.3-7.7) k/uL Lymphocytes # 0.8 L (1.0-4.8) k/uL Monocytes # 0.5 (0-1.0) k/uL Eosinophils # 0.2 (0-0.7) k/uL Basophils # 0.0 (0-0.2) k/uL Hypochromasia Slight Sodium 136 L (137-145) mmol/L Potassium 4.8 (3.5-5.1) mmol/L Chloride 110 H (98-107) mmol/L Carbon Dioxide 22 (22-30) mmol/L Anion Gap 4 mmol/L BUN 23 H (9-20) mg/dL Creatinine 2.03 H (0.66-1.25) mg/dL Est GFR (CKD-EPI)AfAm 47 (>60 ml/min/1.73 sqM) Est GFR (CKD-EPI)NonAf 41 (>60 ml/min/1.73 sqM) Glucose 94 (74-99) mg/dL Plasma Lactic Acid Niko 1.1 (0.7-2.0) mmol/L Calcium 10.0 (8.4-10.2) mg/dL Total Bilirubin 0.6 (0.2-1.3) mg/dL AST 35 (17-59) U/L ALT 25 (4-49) U/L Alkaline Phosphatase 99 (38-126) U/L Total Protein 7.4 (6.3-8.2) g/dL Albumin 4.5 (3.5-5.0) g/dL Lipase 192 (23-300) U/L Disposition Clinical Impression: Intractable epigastric abdominal pain Disposition: ADMITTED IP TO THIS [facility] Time of Disposition: 02:31
[2024-02-19] MEDS: ONDANSETRON 4 MG/2 ML VIAL IVP STA (21:29)
[2024-02-19] MEDS: HYDROmorphone 1 MG/ML 1 ML SYRINGE IVP STA (21:29)
[2024-02-19] MEDS: SODIUM CHLORIDE 0.9% 1,000 ML IV STA (21:29)
[2024-02-19 22:16] LABS: Basophils % (A) 1 %; Eosinophils # (A) 0.2 k/uL (0-0.7); Eosinophils % (A) 3 %; HCT 51.7 % (39.0-53.0); HGB 16.1 gm/dL (13.0-17.5); Hypochromasia Slight; Lymphocytes # (A) 0.8 k/uL (1.0-4.8); Lymphocytes % (A) 16 %; MCH 27.7 pg (25.0-35.0); MCHC 31.1 g/dL (31.0-37.0); Mean Platelet Volume 7.6; Monocytes # (A) 0.5 k/uL (0-1.0); Monocytes % (A) 11 %; Neutrophils # (A) 3.4 k/uL (1.3-7.7); Neutrophils % (A) 67 %; Platelet Count 182 k/uL (150-450); RBC 5.81 m/uL (4.30-5.90); RDW 13.6 % (11.5-15.5); WBC 5.1 k/uL (3.8-10.6)
[2024-02-19 22:24] LABS: ALT 25 U/L (4-49); AST 35 U/L (17-59); African American GFR (CKD) 47 (>60 ml/min/1.73 sqM); Albumin 4.5 g/dL (3.5-5.0); Alkaline Phosphatase 99 U/L (38-126); Anion Gap 4 mmol/L; Blood Urea Nitrogen 23 mg/dL (9-20); Carbon Dioxide 22 mmol/L (22-30); Chloride 110 mmol/L (98-107); Glucose 94 mg/dL (74-99); Lipase 192 U/L (23-300); Non-African American GFR(CKD) 41 (>60 ml/min/1.73 sqM); Potassium 4.8 mmol/L (3.5-5.1); Sodium 136 mmol/L (137-145); Total Bilirubin 0.6 mg/dL (0.2-1.3); Total Protein 7.4 g/dL (6.3-8.2)
[2024-02-20] MEDS ORDERED: NALOXONE 0.4 MG/ML 1 ML VIAL IV PRN (02:29)
[2024-02-20] MEDS ORDERED: ACETAMINOPHEN TAB 325 MG TAB PO PRN (02:29)
[2024-02-20] MEDS: SODIUM CHLORIDE 0.9% 1,000 ML IV SCH (02:59)
[2024-02-20] MEDS: HYDROmorphone 1 MG/ML 1 ML SYRINGE IVP STA (03:29)
[2024-02-20] MEDS: HYDROmorphone 1 MG/ML 1 ML SYRINGE IVP PRN (06:23)
[2024-02-20] MEDS: ONDANSETRON 4 MG/2 ML VIAL IVP PRN (09:47)
[2024-02-20] MEDS ORDERED: NON FORMULARY DRUG (Sildenafil Citrate [Sildenafil Citrate] 100 MG Tablet) PO PRN (11:06)
[2024-02-20] MEDS: IPRATROPIUM-ALBUTEROL 3 ML NEB INHALATION SCH (11:34)
[2024-02-20] MEDS: amLODIPine 5 MG TAB PO SCH (13:07)
--- NOTE | 2024-02-20 18:00 | P.GSCN ---
History of Present Illness Consult date: 02/20/24 History of present illness: Patient was admitted recently discharged for same pain. Reports having fever at home including recurrent epigastric pain. Multiple diagnostic studies including CT scan, ultrasound were performed for investigation of retained common bile pao t stone exacerbation possible abdominal pain and pancreatitis. At this time, patient comes in with recurrent pain. May benefit from MRCP to investigate any residual common bile duct stone given his prior history of stones. Pain management per primary team Past Medical History Past Medical History: Dialysis, Hypertension, Liver Disease, Pneumonia, Renal Di sease Additional Past Medical History / Comment(s): ETOH abuse last drink 03/06/2019, alcoholic hepatitis, 02/05/17 serology lab +for hepatitis C but pt unawarehas antibodies, B12 deficiency, hx of IVDA-heroin but none for almost 9. yrs, 03-14-2020 last dialysis History of Any Multi-Drug Resistant Organisms: None Reported, C-DIFF Year Discovered:: 2018 MDRO Source:: stool Past Surgical History: Cholecystectomy Additional Past Surgical History / Comment(s): tracheotomy, PEG tube placement, stent in gall bladder and removed , L arm fistula Past Anesthesia/Blood Transfusion Reactions: No Reported Reaction Past Psychological History: ADD/ADHD Additional Psychological History / Comment(s): Pt resides with his [facility] Smoking Status: Vaper Past Alcohol Use History: None Reported Additional Past Alcohol Use History / Comment(s): Pt started smoking in 1998 Past Drug Use History: None Reported Additional Drug Use History / Comment(s): CLEAN FROM HEROIN 2015 - Past Family History Father Family Medical History: No Reported History Additional Family Medical History / Comment(s): Father is a heroin addict clean 2-1/2 years now. Mother Family Medical History: Diabetes Mellitus, Hypertension Medications and Allergies Home Medications Medication Instructions Recorded Confirmed Type calcitrioL 0.25 mcg PO TUFR 07/16/22 02/20/24 History Ergocalciferol [Vitamin D2 (1250 1,250 mcg PO Q30D 08/14/22 02/20/24 History Mcg = 03269 Iu)] Sildenafil Citrate 100 mg PO DAILY PRN 01/05/23 02/20/24 History Losartan-Hctz 50-12.5 mg [Hyzaar 1 tab PO DAILY 06/15/23 02/20/24 History 50-12.5] Dapagliflozin Propanediol [Farxiga] 5 mg PO DAILY 02/17/24 02/20/24 History Dextroamphetamine/Amphetamine 30 mg PO BID 02/17/24 02/20/24 History [Adderall] Montelukast [Singulair] 10 mg PO DAILY 02/17/24 02/20/24 History Omeprazole 40 mg PO DAILY 02/17/24 02/20/24 History Tiotropium Br/Olodaterol HCl 2 puff INHALATION RT-DAILY 02/17/24 02/20/24 History [Stiolto Respimat Inhaler (60)] QUEtiapine FUMARATE [SEROquel] 25 mg PO HS 02/20/24 02/20/24 History Allergies Allergy/AdvReac Type Severity Reaction Status Date / Time No Known Allergies Allergy Verified 02/20/24 11:19 Surgical - Exam Vital Signs Temp Pulse Resp BP Pulse Ox 98.5 F 100 16 135/80 98 02/19/24 19:54 02/19/24 19:54 02/19/24 19:54 02/19/24 19:54 02/19/24 19:54 Results - Labs 02/19/24 21:25 02/19/24 21:25 Abnormal Lab Results - Last 24 Hours (Table) 02/19/24 02/19/24 Range/Units 21:25 21:25 Lymphocytes # 0.8 L (1.0-4.8) k/uL Sodium 136 L (137-145) mmol/L Chloride 110 H (98-107) mmol/L BUN 23 H (9-20) mg/dL Creatinine 2.03 H (0.66-1.25) mg/dL Diabetes panel 02/19/24 Range/Units 21:25 Sodium 136 L (137-145) mmol/L Potassium 4.8 (3.5-5.1) mmol/L Chloride 110 H (98-107) mmol/L Carbon Dioxide 22 (22-30) mmol/L BUN 23 H (9-20) mg/dL Creatinine 2.03 H (0.66-1.25) mg/dL Glucose 94 (74-99) mg/dL Calcium 10.0 (8.4-10.2) mg/dL AST 35 (17-59) U/L ALT 25 (4-49) U/L Alkaline Phosphatase 99 (38-126) U/L Total Protein 7.4 (6.3-8.2) g/dL Albumin 4.5 (3.5-5.0) g/dL Calcium panel 02/19/24 Range/Units 21:25 Calcium 10.0 (8.4-10.2) mg/dL Albumin 4.5 (3.5-5.0) g/dL Pituitary panel 02/19/24 Range/Units 21:25 Sodium 136 L (137-145) mmol/L Potassium 4.8 (3.5-5.1) mmol/L Chloride 110 H (98-107) mmol/L Carbon Dioxide 22 (22-30) mmol/L BUN 23 H (9-20) mg/dL Creatinine 2.03 H (0.66-1.25) mg/dL Glucose 94 (74-99) mg/dL Calcium 10.0 (8.4-10.2) mg/dL Adrenal panel 02/19/24 Range/Units 21:25 Sodium 136 L (137-145) mmol/L Potassium 4.8 (3.5-5.1) mmol/L Chloride 110 H (98-107) mmol/L Carbon Dioxide 22 (22-30) mmol/L BUN 23 H (9-20) mg/dL Creatinine 2.03 H (0.66-1.25) mg/dL Glucose 94 (74-99) mg/dL Calcium 10.0 (8.4-10.2) mg/dL Total Bilirubin 0.6 (0.2-1.3) mg/dL AST 35 (17-59) U/L ALT 25 (4-49) U/L Alkaline Phosphatase 99 (38-126) U/L Total Protein 7.4 (6.3-8.2) g/dL Albumin 4.5 (3.5-5.0) g/dL
[2024-02-20] MEDS: QUEtiapine 50 MG TAB PO SCH (20:18)
--- NOTE | 2024-02-20 21:25 | PN ---
PROGRESS NOTE SUBJECTIVE: Dex Sánchez came back to the hospital after signing AMA for recurrent abdominal pain, nausea, and intractable abdominal pain, chronic pancreatitis. Waiting for surgery evaluation. His lipase is elevated somewhat. also covered as he has a history of end-stage renal disease, but he has been up to stage III and he was taken off the dialysis. OBJECTIVE: CARDIOVASCULAR: S1 and S2. LUNGS: . GI: Diffuse tenderness. HEMATOLOGY: Negative Homans. NEUROLOGIC: Alert and oriented x3. Cranial nerves intact. PSYCH: Fair mood and affect. VITAL SIGNS: Reviewed. ASSESSMENT: Acute on chronic pancreatitis. Waiting for surgical evaluation. Clear liquid diet only. Prognosis guarded. MMODL / IJN: [id number] /
[2024-02-20] MEDS: NON FORMULARY DRUG (Dextroamphetamine/Amphetamine [Adderall] 30 MG Tablet) PO SCH (22:10)
[2024-02-21] MEDS: MONTELUKAST 10 MG TAB PO SCH (08:00)
[2024-02-21] MEDS: PANTOPRAZOLE 40 MG TABLET PO SCH (08:00)
[2024-02-21] MEDS: DAPAGLIFLOZIN PROPANEDIOL 5 MG TABLET PO SCH (08:00)
[2024-02-21 09:59] LABS: Lipase 45 U/L (14-60)
[2024-02-21 10:03] LABS: Basophils # (A) 0.02 X 10*3/uL (0.00-0.10); Basophils % (A) 0.4 %; Eosinophils # (A) 0.17 X 10*3/uL (0.04-0.35); Eosinophils % (A) 3.6 %; HCT 45.7 % (39.6-50.0); HGB 14.6 g/dL (13.0-17.0); Lymphocytes # (A) 1.36 X 10*3/uL (0.90-5.00); Lymphocytes % (A) 28.5 %; MCH 27.5 pg (27.0-32.0); MCHC 31.9 g/dL (32.0-37.0); MCV 86.1 FL (80.0-97.0); Mean Platelet Volume 10.9 FL (9.5-12.2); Monocytes % (A) 14.6 %; NRBC Per 100 WBC 0 X 10*3/uL (0.00-0.01); Neutrophils # (A) 2.51 X 10*3/uL (1.80-7.70); Neutrophils % (A) 52.5 %; Platelet Count 151 X 10*3/uL (140-440); RBC 5.31 X 10*6/uL (4.40-5.60); RDW 13.5 % (11.5-14.5); WBC 4.78 X 10*3/uL (4.50-10.00)
[2024-02-21 10:11] LABS: ALT 19 U/L (10-49); AST 21 U/L (14-35); Albumin 3.9 g/dL (3.8-4.9); Alkaline Phosphatase 99 U/L (41-126); BUN/Creat Ratio 12.37 Ratio (12.00-20.00); Blood Urea Nitrogen 23.5 mg/dL (9.0-27.0); Calcium 9.1 mg/dL (8.7-10.3); Carbon Dioxide 23.8 mmol/L (21.6-31.8); Chloride 107 mmol/L (96-109); Globulin 2.3 g/dL (1.6-3.3); Glucose 103 mg/dL (70-110); Potassium 4.7 mmol/L (3.5-5.5); Sodium 141 mmol/L (135-145); Total Bilirubin 0.2 mg/dL (0.3-1.2); Total Protein 6.2 g/dL (6.2-8.2)
--- NOTE | 2024-02-21 15:38 | P.PN ---
Subjective Progress Note Date: 02/21/24 Patient records previously reviewed demonstrating upward rising and declining trend of LFTs. Patient presents with clinical pancreatitis including past CT scan demonstrating possible residual, bile duct stone. Prior ultrasounds were of poor penetration and minimal result. MRCP with MRI of the pancreas advised due to multiple studies being performed still with persistent abdominal pain and questionable resulting, bile duct stone. MRI of the common bile duct and pancreas should elicit any residual, bile duct stones, pancreatic divisum which can also list for pancreatitis and additional chronic abdominal pain Objective - Vital Signs Vital signs: Vital Signs Temp 98.0 F 02/21/24 12:43 Pulse 76 02/21/24 12:43 Resp 16 02/21/24 12:43 BP 132/80 02/21/24 12:43 Pulse Ox 97 02/21/24 12:43 FiO2 Intake & Output 02/20/24 02/21/24 02/21/24 18:59 06:59 18:59 Intake Total 1438 2950 320 Balance 1438 2950 320 Intake: Intake, IV Titration 900 Amount Sodium Chloride 0.9% 1, 900 000 ml @ 75 mls/hr IV . [id number] DANILO Rx#:[id number] Oral 1438 2050 320 Other: # Voids 2 1 - Labs CBC & Chem 7: 02/21/24 04:00 02/21/24 04:00 Labs: Abnormal Lab Results - Last 24 Hours (Table) 02/21/24 02/21/24 Range/Units 04:00 04:00 MCHC 31.9 L (32.0-37.0) g/dL Creatinine 1.9 H (0.6-1.5) mg/dL Est GFR (CKD-EPI) 46 L (>=60) Total Bilirubin 0.2 L (0.3-1.2) mg/dL
--- NOTE | 2024-02-22 11:28 | P.PN ---
Subjective Progress Note Date: 02/22/24 CHIEF COMPLAINT: Abdominal pain HISTORY OF PRESENT ILLNESS: Patient reports he still is having pain across upper abdomen like his recurrent pancreatitis. Patient is scheduled for MRI of the pancreas/MRCP today. He denies any nausea or vomiting. Afebrile. LFTs are normal. Lipase 45 PHYSICAL EXAM: VITAL SIGNS: Reviewed GENERAL: Well-developed in no acute distress. HEENT: No sclera icterus. Extraocular movements grossly intact. Moist buccal mucosa. Head is atraumatic, normocephalic. Hears conversational speech. No nasal drainage. NECK: Supple without lymphadenopathy. CHEST: Non-labored respirations and equal bilateral excursions. CARDIOVASCULAR: Palpable 2+ radial pulses. ABDOMEN: Soft. Nondistended. MUSCULOSKELETAL: No clubbing or cyanosis. NEUROLOGIC: No focal or lateralizing signs. Cranial nerves II through XII grossly intact. PSYCH: Appropriate affect. Alert and oriented to person, place and time. SKIN: Well perfused. Good skin turgor. ASSESSMENT: 1. Abdominal pain 2. Chronic pancreatitis PLAN: -Patient scheduled for MRI/MRCP of the pancreas to evaluate for any residual bile duct stones or pancreatic divisum -Continue IV fluids -Further recommendations forthcoming depending on MRI results Physician Sliver Lapper note has been reviewed by physician. Signing provider agrees with the documented findings, assessment, and plan of care. Objective - Vital Signs Vital signs: Vital Signs Temp 97.8 F 02/22/24 07:20 Pulse 71 02/22/24 07:20 Resp 17 02/22/24 07:20 BP 114/68 02/22/24 07:20 Pulse Ox 97 02/22/24 07:20 FiO2 Intake & Output 02/21/24 02/22/24 02/22/24 18:59 06:59 18:59 Intake Total 541 1014 Balance 541 1014 Intake: Oral 541 1014 Other: # Voids 3 - Labs CBC & Chem 7: 02/21/24 04:00 02/21/24 04:00
[2024-02-22] MEDS: HYDROmorphone 0.5 MG/0.5 ML SYRINGE IVP PRN (15:17)
--- NOTE | 2024-02-22 16:01 | MR ---
EXAMINATION TYPE: MR pancreas / mrcp wo/w con DATE OF EXAM: 02/22/2024 1:07 PM CLINICAL INDICATION: Male, 38 years old with history of CBD stones recurrent pancreatitis; PHH, Recur rent pancreatitis. COMPARISON: 02/17/2024 TECHNIQUE MRI ABDOMEN WITH CONTRAST: Multiplanar multi-sequence imaging was performed without and wit h IV contrast/gadolinium. The patient was given 8 cc Gadavist gadolinium intravenously and dynamic p ost-VIBE (volumetric interpolated breath-hold gradient recall echo) imaging was performed. IV Contrast: 8 cc Gadavist TECHNIQUE MRCP ABDOMEN WITHOUT CONTRAST: Multi planar, T2-weighted imaging with and without fat satur ation and chemical shift imaging was performed of the abdomen. Then, heavily T2 weighted imaging (shantel f-Fourier acquisition single-shot turbo spin-echo) was utilized in order to study the biliary system. Maximum intensity projection images were reconstructed from the original data of the biliary tree. 3D reconstructions and MIP imaging performed on a separate workstation. FINDINGS: MRCP: * The intrahepatic ducts have a normal appearance. * The extrahepatic ducts have a normal appearance. * The common hepatic duct measures 10 mm in size. * The common bile duct at the level of the pancreatic head measures 11 mm in size. Smooth tapering d own to the papilla without evidence of filling defect. Mild intrahepatic biliary dilation. * The pancreatic duct is normal. * The gallbladder appears unremarkable. Abdomen: Liver: No evidence for hepatic steatosis or cirrhosis. Pancreas: Pancreatic divisum morphology of the pancreatic duct. No ductal dilation. No evidence for s olid mass. No abnormal enhancement. Spleen: Mildly enlarged measuring up to 14.1 cm. Adrenal glands: Unremarkable. Kidneys: No evidence for obstructive uropathy. No suspicious renal masses. Stomach and Bowel: No evidence for bowel wall thickening or evidence for obstruction. Retroperitoneum/Peritoneum: No evidence of pneumoperitoneum or free fluid. Vasculature: No aortic aneurysm. Musculoskeletal: The osseous structures appear intact. Lymph Nodes: No gross evidence for lymphadenopathy. Abdominal wall: Unremarkable. IMPRESSION: 1. Pancreatic divisum which can predispose this patient to pancreatitis. 2. Biliary dilation without evidence for choledocholithiasis or stricture. There is smooth tapering which terminates at/near the papilla. Consider ear CT to exclude underlying pulmonary lesion. 3. No evidence to suggest ductal stricture, or choledocholithiasis 4. Mild splenomegaly. [facility], , 02/22/2024 3:59 PM
[2024-02-23 03:12] VITALS: RESP 14
[2024-02-23 07:41] VITALS: BP 146/93; PULSE 92; TEMP 98.8
[2024-02-23 11:15] LABS: ALT 21 U/L (10-49); AST 26 U/L (14-35); Albumin/Globulin Ratio 1.67 Ratio (1.60-3.17); Alkaline Phosphatase 104 U/L (41-126); BUN/Creat Ratio 11.62 Ratio (12.00-20.00); Blood Urea Nitrogen 24.4 mg/dL (9.0-27.0); Calcium 9.2 mg/dL (8.7-10.3); Carbon Dioxide 19.1 mmol/L (21.6-31.8); Chloride 108 mmol/L (96-109); Globulin 2.4 g/dL (1.6-3.3); Glucose 89 mg/dL (70-110); Potassium 4.9 mmol/L (3.5-5.5); Sodium 140 mmol/L (135-145); Total Bilirubin <0.2 mg/dL (0.3-1.2); Total Protein 6.4 g/dL (6.2-8.2)
--- NOTE | 2024-02-25 14:47 | PN ---
PROGRESS NOTE Pancreas MRI done today shows normal appearance common hepatic duct is 10 mm in size, bile duct is 11 mm in size. No filling defect. Pancreatic duct appears normal. Liver appears normal. The pancreatic . Consider CT scan to exclude underlying pulmonary lesion. No ductal stricture, choledocholithiasis, splenomegaly. Please see further orders. His lipase appears to be improving. Clearance from GI prior to discharge. Please see current treatments. Advance as tolerated. MMODL / IJN: [id number] /
[2024-03-01] MEDS ORDERED: ERGOCALCIFEROL 1,250 MCG (50,000 IU) CAPSULE PO SCH (09:00)
== END 2024-02-23 09:50 | disposition home or self-care (01) | DRG 251 ==
LOC: EC 19:47 → 5NMEDONC 02-20 02:31 → OBSVTOIN 02-20 02:48 → 5NMEDONC 02-20 02:56 → UNDODISOB 02-23 09:50
PROVIDERS: ADMIT Family Medicine; ATTEND Family Medicine
DX: R10.13 Epigastric pain (principal); R10.12 Left upper quadrant pain; R19.7 Diarrhea, unspecified; R11.2 Nausea with vomiting, unspecified; Z90.49 Acquired absence of other specified parts of digestive tract; Z79.84 Long term (current) use of oral hypoglycemic drugs; Z79.899 Other long term (current) drug therapy; F17.290 Nicotine dependence, other tobacco product, uncomplicated; K86.1 Other chronic pancreatitis; N18.30 Chronic kidney disease, stage 3 unspecified; Z53.29 Procedure and treatment not carried out because of patient's decision for other reasons; I12.0 Hypertensive chronic kidney disease with stage 5 chronic kidney disease or end stage renal disease; G89.29 Other chronic pain; B19.20 Unspecified viral hepatitis C without hepatic coma; F10.11 Alcohol abuse, in remission; F11.11 Opioid abuse, in remission; F90.9 Attention-deficit hyperactivity disorder, unspecified type; Z87.01 Personal history of pneumonia (recurrent); Z28.310 Unvaccinated for COVID-19
CPT/HCPCS: 36415; 74183; 80053; 83605; 83690; 85025; 94640; 96361; 96374; 96375; 99285

== ENCOUNTER 2024-05-08 19:50 | Emergency (ER) | payer OTHER ==
[2024-05-08 19:56] VITALS: TEMP 98.5
[2024-05-08] MEDS: ONDANSETRON 4 MG/2 ML VIAL IVP STA (20:24)
[2024-05-08] MEDS: SODIUM CHLORIDE 0.9% 1,000 ML IV STA (20:24)
[2024-05-08] MEDS: KETOROLAC 15 MG/ML 1 ML VIAL IVP STA (20:32)
[2024-05-08] MEDS: HYDROmorphone 0.5 MG/0.5 ML SYRINGE IVP STA (20:33)
[2024-05-08 20:40] LABS: Basophils % (A) 1 %; Eosinophils # (A) 0.3 k/uL (0-0.7); Eosinophils % (A) 5 %; HCT 48.1 % (39.0-53.0); HGB 15.6 gm/dL (13.0-17.5); Lymphocytes # (A) 0.9 k/uL (1.0-4.8); Lymphocytes % (A) 19 %; MCH 28.1 pg (25.0-35.0); MCHC 32.3 g/dL (31.0-37.0); Mean Platelet Volume 7.6; Monocytes # (A) 0.3 k/uL (0-1.0); Monocytes % (A) 6 %; Neutrophils # (A) 3.2 k/uL (1.3-7.7); Neutrophils % (A) 68 %; Platelet Count 155 k/uL (150-450); RBC 5.53 m/uL (4.30-5.90); RDW 14.6 % (11.5-15.5); WBC 4.7 k/uL (3.8-10.6)
[2024-05-08 20:51] LABS: ALT 41 U/L (4-49); AST 43 U/L (17-59); African American GFR (CKD) 51 (>60 ml/min/1.73 sqM); Alkaline Phosphatase 92 U/L (38-126); Amylase 102 U/L (30-110); Anion Gap 7 mmol/L; Blood Urea Nitrogen 24 mg/dL (9-20); Calcium 9.1 mg/dL (8.4-10.2); Carbon Dioxide 21 mmol/L (22-30); Chloride 113 mmol/L (98-107); Glucose 123 mg/dL (74-99); Lipase 296 U/L (23-300); Non-African American GFR(CKD) 44 (>60 ml/min/1.73 sqM); Potassium 3.9 mmol/L (3.5-5.1); Sodium 141 mmol/L (137-145); Total Bilirubin 0.8 mg/dL (0.2-1.3); Total Protein 6.6 g/dL (6.3-8.2)
--- NOTE | 2024-05-08 22:52 | ED ---
Abdominal Pain HPI - General Chief Complaint: Abdominal Pain Stated Complaint: abd pain; hx of pancreatitis Time Seen by Provider: 05/08/24 19:57 Source: patient Mode of arrival: ambulatory Limitations: no limitations - History of Present Illness Initial Comments: 39-year-old male presenting with chief complaint of abdominal pain. Patient has history of chronic pancreatitis and states that this feels consistent with previous flareups. Located in the upper and right-sided abdomen. Surgical history includes cholecystectomy. Patient is a previous alcoholic. He admits to nausea and vomiting. Admits to diarrhea. No fever. No chest pain or diffic ulty breathing. No URI-like symptoms. No urinary symptoms. - Related Data Home Medications Medication Instructions Recorded Confirmed calcitrioL 0.25 mcg PO TUFR 07/16/22 02/20/24 Ergocalciferol [Vitamin D2 (1250 1,250 mcg PO Q30D 08/14/22 02/20/24 Mcg = 87460 Iu)] Sildenafil Citrate 100 mg PO DAILY PRN 01/05/23 02/20/24 Dapagliflozin Propanediol [Farxiga] 5 mg PO DAILY 02/17/24 02/20/24 Dextroamphetamine/Amphetamine 30 mg PO BID 02/17/24 02/20/24 [Adderall] Montelukast [Singulair] 10 mg PO DAILY 02/17/24 02/20/24 Omeprazole 40 mg PO DAILY 02/17/24 02/20/24 Tiotropium Br/Olodaterol HCl 2 puff INHALATION RT-DAILY 02/17/24 02/20/24 [Stiolto Respimat Inhaler (60)] QUEtiapine FUMARATE [SEROquel] 25 mg PO HS 02/20/24 02/20/24 Previous Rx's Medication Instructions Recorded Acetaminophen Tab [Tylenol] 650 mg PO Q6HR PRN tab 02/23/24 amLODIPine [Norvasc] 5 mg PO DAILY 90 Days #90 tab 02/23/24 Allergies Allergy/AdvReac Type Severity Reaction Status Date / Time No Known Allergies Allergy Verified 05/08/24 19:56 Review of Systems ROS Statement: Those systems with pertinent positive or pertinent negative responses have been documented in the HPI. ROS Other: All systems not noted in ROS Statement are negative. Past Medical History Past Medical History: Dialysis, Hypertension, Liver Disease, Pneumonia, Renal Disease Additional Past Medical History / Comment(s): ETOH abuse last drink 03/06/2019, alcoholic hepatitis, 02/05/17 serology lab +for hepatitis C but pt unawarehas antibodies, B12 deficiency, hx of IVDA-heroin but none for almost 9. yrs, 03-14-2020 last dialysis History of Any Multi-Drug Resistant Organisms: None Reported, C-DIFF Date of last positivie culture/infection: 2018 MDRO Source:: stool Past Surgical History: Cholecystectomy Additional Past Surgical History / Comment(s): tracheotomy, PEG tube placement, stent in gall bladder and removed , L arm fistula Past Anesthesia/Blood Transfusion Reactions: No Reported Reaction Past Psychological History: ADD/ADHD Smoking Status: Vaper Past Alcohol Use History: None Reported Past Drug Use History: None Reported - Past Family History Father Family Medical History: No Reported History Additional Family Medical History / Comment(s): Father is a heroin addict clean 2-1/2 years now. Mother Family Medical History: Diabetes Mellitus, Hypertension General Exam Limitations: no limitations General appearance: alert, in no apparent distress Head exam: Present: atraumatic, normocephalic, normal inspection Eye exam: Present: normal appearance, EOMI Neck exam: Present: normal inspection. Absent: meningismus Respiratory exam: Present: normal lung sounds bilaterally. Absent: respiratory distress, wheezes, rales, rhonchi, stridor Cardiovascular Exam: Present: regular rate, normal rhythm, normal heart sounds. Absent: systolic murmur, diastolic murmur, rubs, gallop, clicks GI/Abdominal exam: Present: soft, tenderness. Absent: distended, guarding, rebound, rigid Neurological exam: Present: alert, oriented X3 Psychiatric exam: Present: normal affect, normal mood Skin exam: Present: warm, dry Course Vital Signs 05/08/24 05/08/24 19:54 23:14 Temperature 98.5 F Pulse Rate 119 H 92 Respiratory 16 18 Rate Blood Pressure 154/86 174/82 O2 Sat by Pulse 98 97 Oximetry Medical Decision Making - Medical Decision Making Was pt. sent in by a medical professional or institution (, PA, NEWSPERSON, urgent care, hospital, or alf...) When possible be specific @ -No Did you speak to anyone other than the patient for history (EMS, parent, family, police, friend...)? What history was obtained from this source @ -No Did you review nursing and triage notes (agree or disagree)? Why? @ -I reviewed and agree with nursing and triage notes Were old charts reviewed (outside hosp., previous admission, EMS record, old EKG, old radiological studies, urgent care reports/EKG's, alf records)? Report findings @ -Reviewed pancreas MRI from January Differential Diagnosis (chest pain, altered mental status, abdominal pain women, abdominal pain men, vaginal bleeding, weakness, fever, dyspnea, syncope, headache, dizziness, GI bleed, back pain, seizure, CVA, palpatations, mental health, musculoskeletal)? @ -MDM Differential Abdominal Pain Men: Appendicitis, cholecystitis, diverticulosis, ischemic bowel, pancreatitis, hepatitis, UTI, gastroenteritis, AAA, incarcerated hernia, bowel obstruction, constipation, inflammatory bowel, hepatitis, peptic ulcer disease, splenic infarction, perforated viscus, testicular torsion... This is not meant to be an all-inclusive list EKG interpreted by me (3pts min.). @ -As above X-rays interpreted by me (1pt min.). @ -None done CT interpreted by me (1pt min.). @ -None done U/S interpreted by me (1pt. min.). @ -None done What testing was considered but not performed or refused? (CT, X-rays, U/S, labs)? Why? @ -None What meds were considered but not given or refused? Why? @ -None Did you discuss the management of the patient with other professionals (professionals i.e. , PA, NEWSPERSON, lab, RT, psych nurse, hospital social worker, stone mason, teacher, credit products officer, case worker)? Give summary @ -No Was smoking cessation discussed for >3mins.? @ -No Was critical care preformed (if so, how long)? @ -No Were there social determinants of health that impacted care today? How? (Homelessness, low income, unemployed, alcoholism, drug addiction, transportation, low edu. Level, literacy, decrease access to med. care, halfway, rehab)? @ -No Was there de-escalation of care discussed even if they declined (Discuss DNR or withdrawal of care, Hospice)? DNR status @ -No What co-morbidities impacted this encounter? (DM, HTN, Smoking, COPD, CAD, Cancer, CVA, ARF, Chemo, Hep., AIDS, mental health diagnosis, sleep apnea, morbid obesity)? @ -None Was patient admitted / discharged? Hospital course, mention meds given and route, prescriptions, significant lab abnormalities, going to OR and other pertinent info. @ -39-year-old male presenting with chief complaint of abdominal pain. Feels consistent with pain he has had in the past related to his chronic pancreatitis. History and physical examination are conducted. No leukocytosis or anemia. Lactic acid 2.2, patient is receiving IV fluids. Lipase is 296 and amylase is 102. Urine shows no infection. Urine toxicology positive for amphetamines and opiates. Patient received pain medication. On reassessment he is resting in the bed showing no acute signs of distress. We discussed his results today. I do not believe that his labs indicate need for admission. Patient will be discharged home. Follow-up with PCP. Report back to ER with any new or worsening symptoms. Discussed return parameters and answered all questions. Patient conveyed verbal understanding and agreed to the plan. I discussed this case in detail with my attending Dr. Robertson Undiagnosed new problem with uncertain prognosis? @ -No Drug Therapy requiring intensive monitoring for toxicity (Heparin, Nitro, Insulin, Cardizem)? @ -No Were any procedures done? @ -No Diagnosis/symptom? @ -Abdominal pain Acute, or Chronic, or Acute on Chronic? @ -Acute Uncomplicated (without systemic symptoms) or Complicated (systemic symptoms)? @ -Uncomplicated Side effects of treatment? @ -No Exacerbation, Progression, or Severe Exacerbation? @ -No Poses a threat to life or bodily function? How? (Chest pain, USA, OR, pneumonia, PE, COPD, DKA, ARF, appy, cholecystitis, CVA, Diverticulitis, Homicidal, Suicidal, threat to staff... and all critical care pts) @ -The likelihood Diagnosis/symptom? @Chronic pancreatitis Acute, or Chronic, or Acute on Chronic? @Chronic Uncomplicated (without systemic symptoms) or Complicated (systemic symptoms)? @Uncomplicated Side effects of treatment? @None Exacerbation, Progression, or Severe Exacerbation] @No Poses a threat to life or bodily function? @Low likelihood at this time - Lab Data Result diagrams: 05/08/24 20:24 05/08/24 20:24 Lab Results 12/08/24 12/08/24 12/08/24 Range/Units 20:24 20:24 20:24 WBC 4.7 (3.8-10.6) k/uL RBC 5.53 (4.30-5.90) m/uL Hgb 15.6 (13.0-17.5) gm/dL Hct 48.1 (39.0-53.0) % MCV 87.0 (80.0-100.0) fL MCH 28.1 (25.0-35.0) pg MCHC 32.3 (31.0-37.0) g/dL RDW 14.6 (11.5-15.5) % Plt Count 155 (150-450) k/uL MPV 7.6 Neutrophils % 68 % Lymphocytes % 19 % Monocytes % 6 % Eosinophils % 5 % Basophils % 1 % Neutrophils # 3.2 (1.3-7.7) k/uL Lymphocytes # 0.9 L (1.0-4.8) k/uL Monocytes # 0.3 (0-1.0) k/uL Eosinophils # 0.3 (0-0.7) k/uL Basophils # 0.0 (0-0.2) k/uL Sodium 141 (137-145) mmol/L Potassium 3.9 (3.5-5.1) mmol/L Chloride 113 H (98-107) mmol/L Carbon Dioxide 21 L (22-30) mmol/L Anion Gap 7 mmol/L BUN 24 H (9-20) mg/dL Creatinine 1.89 H (0.66-1.25) mg/dL Est GFR (CKD-EPI)AfAm 51 (>60 ml/min/1.73 sqM) Est GFR (CKD-EPI)NonAf 44 (>60 ml/min/1.73 sqM) Glucose 123 H (74-99) mg/dL Lactic Ac Sepsis Rflx Plasma Lactic Acid Niko 2.2 H* (0.7-2.0) mmol/L Calcium 9.1 (8.4-10.2) mg/dL Total Bilirubin 0.8 (0.2-1.3) mg/dL AST 43 (17-59) U/L ALT 41 (4-49) U/L Alkaline Phosphatase 92 (38-126) U/L Total Protein 6.6 (6.3-8.2) g/dL Albumin 4.0 (3.5-5.0) g/dL Amylase 102 (30-110) U/L Lipase 296 (23-300) U/L Urine Color Urine Appearance (Clear) Urine pH (5.0-8.0) Ur Specific [place] (1.001-1.035) Urine Protein (Negative) Urine Glucose (UA) (Negative) Urine Ketones (Negative) Urine Blood (Negative) Urine Nitrite (Negative) Urine Bilirubin (Negative) Urine Urobilinogen (<2.0) mg/dL Ur Leukocyte Esterase (Negative) Urine RBC (0-5) /hpf Urine WBC (0-5) /hpf Urine Mucus (None) /hpf Urine Opiates Screen (NotDetected) Ur Oxycodone Screen (NotDetected) Urine Methadone Screen (NotDetected) Ur Barbiturates Screen (NotDetected) U Tricyclic Antidepress (NotDetected) Ur Phencyclidine Scrn (NotDetected) Ur Amphetamines Screen (NotDetected) U Methamphetamines Scrn (NotDetected) U Benzodiazepines Scrn (NotDetected) Urine Cocaine Screen (NotDetected) U Marijuana (THC) Screen (NotDetected) 05/08/24 05/08/24 Range/Units 20:53 22:44 WBC (3.8-10.6) k/uL RBC (4.30-5.90) m/uL Hgb (13.0-17.5) gm/dL Hct (39.0-53.0) % MCV (80.0-100.0) fL MCH (25.0-35.0) pg MCHC (31.0-37.0) g/dL RDW (11.5-15.5) % Plt Count (150-450) k/uL MPV Neutrophils % % Lymphocytes % % Monocytes % % Eosinophils % % Basophils % % Neutrophils # (1.3-7.7) k/uL Lymphocytes # (1.0-4.8) k/uL Monocytes # (0-1.0) k/uL Eosinophils # (0-0.7) k/uL Basophils # (0-0.2) k/uL Sodium (137-145) mmol/L Potassium (3.5-5.1) mmol/L Chloride (98-107) mmol/L Carbon Dioxide (22-30) mmol/L Anion Gap mmol/L BUN (9-20) mg/dL Creatinine (0.66-1.25) mg/dL Est GFR (CKD-EPI)AfAm (>60 ml/min/1.73 sqM) Est GFR (CKD-EPI)NonAf (>60 ml/min/1.73 sqM) Glucose (74-99) mg/dL Lactic Ac Sepsis Rflx Y Plasma Lactic Acid Niko (0.7-2.0) mmol/L Calcium (8.4-10.2) mg/dL Total Bilirubin (0.2-1.3) mg/dL AST (17-59) U/L ALT (4-49) U/L Alkaline Phosphatase (38-126) U/L Total Protein (6.3-8.2) g/dL Albumin (3.5-5.0) g/dL Amylase (30-110) U/L Lipase (23-300) U/L Urine Color Colorless Urine Appearance Clear (Clear) Urine pH 6.5 (5.0-8.0) Ur Specific [place] 1.014 (1.001-1.035) Urine Protein 2+ H (Negative) Urine Glucose (UA) Negative (Negative) Urine Ketones Negative (Negative) Urine Blood Trace H (Negative) Urine Nitrite Negative (Negative) Urine Bilirubin Negative (Negative) Urine Urobilinogen <2.0 (<2.0) mg/dL Ur Leukocyte Esterase Negative (Negative) Urine RBC 3 (0-5) /hpf Urine WBC <1 (0-5) /hpf Urine Mucus Rare H (None) /hpf Urine Opiates Screen Detected H (NotDetected) Ur Oxycodone Screen Not Detected (NotDetected) Urine Methadone Screen Not Detected (NotDetected) Ur Barbiturates Screen Not Detected (NotDetected) U Tricyclic Antidepress Not Detected (NotDetected) Ur Phencyclidine Scrn Not Detected (NotDetected) Ur Amphetamines Screen Detected H (NotDetected) U Methamphetamines Scrn Not Detected (NotDetected) U Benzodiazepines Scrn Not Detected (NotDetected) Urine Cocaine Screen Not Detected (NotDetected) U Marijuana (THC) Screen Not Detected (NotDetected) Disposition Clinical Impression: Chronic pancreatitis, Abdominal pain Disposition: HOME SELF-CARE Condition: Fair Instructions (If sedation given, give patient instructions): Pancreatitis (ED), Abdominal Pain (ED) Additional Instructions: Follow-up with your PCP. Report back to ER with any new or worsening symptoms. Is patient prescribed a controlled substance at d/c from ED?: No Referrals: Maksim Schultz MD [Primary Care Provider] - 1-2 days
[2024-05-08 23:03] LABS: Appearance,Urine Clear (Clear); Bilirubin,Urine Negative (Negative); Blood,Urine Trace (Negative); Color,Urine Colorless; Glucose,Urine (UA) Negative (Negative); Ketones,Urine Negative (Negative); Leukocyte Esterase,Urine Negative (Negative); Mucus,Urine Rare /hpf; Nitrite,Urine Negative (Negative); PH, Urine 6.5 (5.0-8.0); Protein,Urine 2+ (Negative); RBC,Urine 3 /hpf (0-5); Specific Gravity,Urine 1.014 (1.001-1.035); Urobilinogen,Urine <2.0 mg/dL (<2.0); WBC,Urine <1 /hpf (0-5)
[2024-05-08] MEDS: HYDROmorphone 1 MG/ML 1 ML SYRINGE IVP STA (23:10)
[2024-05-08 23:14] LABS: Amphetamine Screen,Urine Detected (NotDetected); Barbiturate Screen,Urine Not Detected (NotDetected); Benzodiazepines Screen,Urine Not Detected (NotDetected); Cocaine Screen,Urine Not Detected (NotDetected); Methadone Screen, Urine Not Detected (NotDetected); Opiate Screen,Urine Detected (NotDetected); Oxycodone Screen, Urine Not Detected (NotDetected); Phencyclidine Screen,Urine Not Detected (NotDetected); Tricyclic Antidepressant,Urine Not Detected (NotDetected); Urn Cannabinoid Scrn Not Detected (NotDetected)
[2024-05-08 23:16] VITALS: BP 174/82; PULSE 92; RESP 18
== END 2024-05-08 23:17 | disposition home or self-care (01) ==
LOC: EC 19:50
DX: K86.1 Other chronic pancreatitis (principal); R10.9 Unspecified abdominal pain; F17.290 Nicotine dependence, other tobacco product, uncomplicated
CPT/HCPCS: 36415; 80053; 82150; 83605; 83690; 85025; 81001; 80306; 99284; 96374; 96375; 96376; 96361; J2405; J1171 ×2

== ENCOUNTER 2024-05-10 14:37 | Emergency (ER) | payer OTHER ==
[2024-05-10 14:55] VITALS: RESP 18
--- NOTE | 2024-05-10 15:08 | ED ---
Abdominal Pain HPI - General Source: patient, EMS, RN notes reviewed Mode of arrival: EMS Limitations: no limitations - History of Present Illness MD Complaint: abdominal pain <Sheryl Pierre - Last Filed: 05/10/24 15:06> <Shahrzad Jaime - Last Filed: 05/10/24 21:41> - General Chief Complaint: Abdominal Pain Stated Complaint: abd pain Time Seen by Provider: 05/10/24 15:00 - History of Present Illness Initial Comments: Quick Note: This is a 39-year-old male who presents to the emergency department for abdominal pain. He was evaluated here for this 2 days ago as well and discharged home. He is well-known to this emergency department for recurrent visits related to abdominal pain and pancreatitis. (Sheryl Pierre) This is a 39-year-old male is presenting to the emergency room chief complaint of right-sided abdominal pain. Patient is well-known to emergency department for recurrent visits of abdominal pain. Patient states that symptoms are same as when he has had pancreatitis flareups in the past. He endorses diarrhea and vomiting as well. Denies hematochezia, melena, hematemesis. Denies fevers or chills. Previous surgical abdominal history of cholecystectomy. (Shahrzad Jaime) - Related Data Home Medications Medication Instructions Recorded Confirmed calcitrioL 0.25 mcg PO TUFR 07/16/22 02/20/24 Ergocalciferol [Vitamin D2 (1250 1,250 mcg PO Q30D 08/14/22 02/20/24 Mcg = 20019 Iu)] Sildenafil Citrate 100 mg PO DAILY PRN 01/05/23 02/20/24 Dapagliflozin Propanediol [Farxiga] 5 mg PO DAILY 02/17/24 02/20/24 Dextroamphetamine/Amphetamine 30 mg PO BID 02/17/24 02/20/24 [Adderall] Montelukast [Singulair] 10 mg PO DAILY 02/17/24 02/20/24 Omeprazole 40 mg PO DAILY 02/17/24 02/20/24 Tiotropium Br/Olodaterol HCl 2 puff INHALATION RT-DAILY 02/17/24 02/20/24 [Stiolto Respimat Inhaler (60)] QUEtiapine FUMARATE [SEROquel] 25 mg PO HS 02/20/24 02/20/24 Previous Rx's Medication Instructions Recorded Acetaminophen Tab [Tylenol] 650 mg PO Q6HR PRN tab 02/23/24 amLODIPine [Norvasc] 5 mg PO DAILY 90 Days #90 tab 02/23/24 Allergies Allergy/AdvReac Type Severity Reaction Status Date / Time No Known Allergies Allergy Verified 05/10/24 14:55 Review of Systems ROS Other: All systems not noted in ROS Statement are negative. <Sheryl Pierre - Last Filed: 05/10/24 15:06> ROS Other: All systems not noted in ROS Statement are negative. <Shahrzad Jaime - Last Filed: 05/10/24 21:41> ROS Statement: Those systems with pertinent positive or pertinent negative responses have been documented in the HPI. Past Medical History Past Medical History: Dialysis, Hypertension, Liver Disease, Pneumonia, Renal Disease Additional Past Medical History / Comment(s): ETOH abuse last drink 03/06/2019, alcoholic hepatitis, 02/05/17 serology lab +for hepatitis C but pt unawarehas antibodies, B12 deficiency, hx of IVDA-heroin but none for almost 9. yrs, 03-14-2020 last dialysis History of Any Multi-Drug Resistant Organisms: None Reported, C-DIFF Date of last positivie culture/infection: 2018 MDRO Source:: stool Past Surgical History: Cholecystectomy Additional Past Surgical History / Comment(s): tracheotomy, PEG tube placement, stent in gall bladder and removed , L arm fistula Past Anesthesia/Blood Transfusion Reactions: No Reported Reaction Past Psychological History: ADD/ADHD Smoking Status: Current every day smoker, Vaper Past Alcohol Use History: None Reported Past Drug Use History: None Reported - Past Family History Father Family Medical History: No Reported History Additional Family Medical History / Comment(s): Father is a heroin addict clean 2-1/2 years now. Mother Family Medical History: Diabetes Mellitus, Hypertension <Sheryl Pierre - Last Filed: 05/10/24 15:06> General Exam Limitations: no limitations <Sheryl Pierre - Last Filed: 05/10/24 15:06> General appearance: alert, in no apparent distress ENT exam: Present: normal exam, mucous membranes moist Respiratory exam: Present: normal lung sounds bilaterally. Absent: respiratory distress, wheezes, rales, rhonchi, stridor Cardiovascular Exam: Present: regular rate, normal rhythm, normal heart sounds. Absent: systolic murmur, diastolic murmur, rubs, gallop, clicks GI/Abdominal exam: Present: soft, tenderness (Right side abdomen), normal bowel sounds. Absent: distended, guarding, rebound, rigid Extremities exam: Present: normal inspection, full ROM, normal capillary refill. Absent: tenderness, pedal edema, joint swelling, calf tenderness Back exam: Present: normal inspection Skin exam: Present: warm, dry, intact, normal color. Absent: rash <Shahrzad Jaime - Last Filed: 05/10/24 21:41> - General Exam Comments Initial Comments: Visual Physical Exam Vital signs reviewed General: Well-appearing, nontoxic, no acute distress. Head: Normocephalic, atraumatic Eyes: PERRLA, EOMI ENT: Airway patent Chest: Nonlabored breathing Skin: No visual rash, normal skin tone Neuro: Alert and oriented 3 Musculoskeletal: No gross abnormalities (Sheryl Pierre) Course Vital Signs 05/10/24 05/10/24 14:53 19:00 Temperature 98.4 F 97.9 F Pulse Rate 106 H 105 H Respiratory 18 18 Rate Blood Pressure 156/107 145/101 O2 Sat by Pulse 99 98 Oximetry Medical Decision Making <Sheryl Pierre - Last Filed: 05/10/24 15:06> - Lab Data Result diagrams: 05/10/24 16:23 05/10/24 19:00 <Shahrzad Jaime - Last Filed: 05/10/24 21:41> - Medical Decision Making I performed the QuickNote portion of this chart. Signed Sheryl Pierre PA-C. (Sheryl Pierre) Was pt. sent in by a medical professional or institution ([facility], NAIL SPECIALIST, urgent care, hospital, or [facility]...) When possible be specific @ -No Did you speak to anyone other than the patient for history (EMS, parent, family, police, friend...)? What history was obtained from this source @ -No Did you review nursing and triage notes (agree or disagree)? Why? @ -I reviewed and agree with nursing and triage notes Were old charts reviewed (outside hosp., previous admission, EMS record, old EKG, old radiological studies, urgent care reports/EKG's, [facility] records)? Report findings @ -No old charts were reviewed Differential Diagnosis (chest pain, altered mental status, abdominal pain women, abdominal pain men, vaginal bleeding, weakness, fever, dyspnea, syncope, headache, dizziness, GI bleed, back pain, seizure, CVA, palpatations, mental health, musculoskeletal)? @ -Differential Abdominal Pain Men: Appendicitis, cholecystitis, diverticulosis, ischemic bowel, pancreatitis, hepatitis, UTI, gastroenteritis, AAA, incarcerated hernia, bowel obstruction, constipation, inflammatory bowel, hepatitis, peptic ulcer disease, splenic infarction, perforated viscus, testicular torsion, this is not meant to be an all-inclusive list EKG interpreted by me (3pts min.). @ -None X-rays interpreted by me (1pt min.). @ -None done CT interpreted by me (1pt min.). @ -None done U/S interpreted by me (1pt. min.). @ -None done What testing was considered but not performed or refused? (CT, X-rays, U/S, labs)? Why? @ -None What meds were considered but not given or refused? Why? @ -None Did you discuss the management of the patient with other professionals (professionals i.e. , PA, NAIL SPECIALIST, lab, RT, psych nurse, licensed clinical social worker, lawyer probate, teacher, commercial loan collection officer, family independence case manager)? Give summary @ -No Was smoking cessation discussed for >3mins.? @ -No Was critical care preformed (if so, how long)? @ -No Were there social determinants of health that impacted care today? How? (Homelessness, low income, unemployed, alcoholism, drug addiction, transportation, low edu. Level, literacy, decrease access to med. care, care home, rehab)? @ -No Was there de-escalation of care discussed even if they declined (Discuss DNR or withdrawal of care, Hospice)? DNR status @ -No What co-morbidities impacted this encounter? (DM, HTN, Smoking, COPD, CAD, Cancer, CVA, ARF, Chemo, Hep., AIDS, mental health diagnosis, sleep apnea, morbid obesity)? @ -None Was patient admitted / discharged? Hospital course, mention meds given and route, prescriptions, significant lab abnormalities, going to OR and other pertinent info. @ -Discharge. 39-year-old male with abdominal pain. Patient was originally evaluated emerged part waiting room as a quick note. On my evaluation the patient is resting company no signs acute distress. Vitals are stable. Laboratory studies including CBC, CMP, pancreatic enzymes and lactic acid unremarkable. Patient is feeling much better after medication administration including antiemetics, analgesics, and fluids. Recommend that patient follows up with his primary care provider in the next 24 to 48 hours for further evaluation. Discussed with patient that he may be a candidate for pain management as this is a recurrent complaint for the patient and he states that he has spoke with his primary care provider in regard to this as well. Discussed with Dr. Levin Undiagnosed new problem with uncertain prognosis? @ -No Drug Therapy requiring intensive monitoring for toxicity (Heparin, Nitro, Insulin, Cardizem)? @ -No Were any procedures done? @ -No Diagnosis/symptom? @ -chronic abdominal pain Acute, or Chronic, or Acute on Chronic? @ -chronic Uncomplicated (without systemic symptoms) or Complicated (systemic symptoms)? @ -uncomplicated Side effects of treatment? @ -No Exacerbation, Progression, or Severe Exacerbation? @ -No Poses a threat to life or bodily function? How? (Chest pain, USA, DC, pneumonia, PE, COPD, DKA, ARF, appy, cholecystitis, CVA, Diverticulitis, Homicidal, Suicidal, threat to staff... and all critical care pts) @ -No (Shahrzad Jaime) - Lab Data Lab Results 05/10/24 05/10/24 05/10/24 Range/Units 16:23 16:23 19:00 WBC 4.5 (3.8-10.6) k/uL RBC 5.94 H (4.30-5.90) m/uL Hgb 16.8 (13.0-17.5) gm/dL Hct 52.0 (39.0-53.0) % MCV 87.4 (80.0-100.0) fL MCH 28.2 (25.0-35.0) pg MCHC 32.3 (31.0-37.0) g/dL RDW 14.3 (11.5-15.5) % Plt Count 166 (150-450) k/uL MPV 8.2 Neutrophils % 69 % Lymphocytes % 19 % Monocytes % 5 % Eosinophils % 5 % Basophils % 1 % Neutrophils # 3.1 (1.3-7.7) k/uL Lymphocytes # 0.9 L (1.0-4.8) k/uL Monocytes # 0.2 (0-1.0) k/uL Eosinophils # 0.2 (0-0.7) k/uL Basophils # 0.0 (0-0.2) k/uL Sodium 143 (137-145) mmol/L Potassium 4.9 (3.5-5.1) mmol/L Chloride 111 H (98-107) mmol/L Carbon Dioxide 29 (22-30) mmol/L Anion Gap 3 mmol/L BUN 24 H (9-20) mg/dL Creatinine 2.13 H (0.66-1.25) mg/dL Est GFR (CKD-EPI)AfAm 44 (>60 ml/min/1.73 sqM) Est GFR (CKD-EPI)NonAf 38 (>60 ml/min/1.73 sqM) Glucose 79 (74-99) mg/dL Plasma Lactic Acid Niok 1.8 (0.7-2.0) mmol/L Calcium 9.6 (8.4-10.2) mg/dL Total Bilirubin 0.5 (0.2-1.3) mg/dL AST 35 (17-59) U/L ALT 40 (4-49) U/L Alkaline Phosphatase 89 (38-126) U/L Total Protein 7.5 (6.3-8.2) g/dL Albumin 4.5 (3.5-5.0) g/dL Amylase 89 (30-110) U/L Lipase 225 (23-300) U/L Disposition <Sheryl Pierre - Last Filed: 05/10/24 15:06> Is patient prescribed a controlled substance at d/c from ED?: No Time of Disposition: 20:18 <Shahrzad Jaime - Last Filed: 05/10/24 21:41> Clinical Impression: Chronic abdominal pain Disposition: HOME SELF-CARE Condition: Good Instructions (If sedation given, give patient instructions): Abdominal Pain (ED) Additional Instructions: Please return to the Emergency Department if symptoms worsen or any other concerns. Referrals: Maksim Schultz MD [Primary Care Provider] - 1-2 days
[2024-05-10 16:32] LABS: Basophils % (A) 1 %; Eosinophils # (A) 0.2 k/uL (0-0.7); Eosinophils % (A) 5 %; HGB 16.8 gm/dL (13.0-17.5); Lymphocytes # (A) 0.9 k/uL (1.0-4.8); Lymphocytes % (A) 19 %; MCH 28.2 pg (25.0-35.0); MCHC 32.3 g/dL (31.0-37.0); MCV 87.4 fL (80.0-100.0); Mean Platelet Volume 8.2; Monocytes # (A) 0.2 k/uL (0-1.0); Monocytes % (A) 5 %; Neutrophils # (A) 3.1 k/uL (1.3-7.7); Neutrophils % (A) 69 %; Platelet Count 166 k/uL (150-450); RBC 5.94 m/uL (4.30-5.90); RDW 14.3 % (11.5-15.5); WBC 4.5 k/uL (3.8-10.6)
[2024-05-10 19:10] VITALS: BP 145/101; PULSE 105; TEMP 97.9
[2024-05-10 19:29] LABS: ALT 40 U/L (4-49); AST 35 U/L (17-59); African American GFR (CKD) 44 (>60 ml/min/1.73 sqM); Albumin 4.5 g/dL (3.5-5.0); Alkaline Phosphatase 89 U/L (38-126); Amylase 89 U/L (30-110); Anion Gap 3 mmol/L; Blood Urea Nitrogen 24 mg/dL (9-20); Calcium 9.6 mg/dL (8.4-10.2); Carbon Dioxide 29 mmol/L (22-30); Chloride 111 mmol/L (98-107); Glucose 79 mg/dL (74-99); Lipase 225 U/L (23-300); Non-African American GFR(CKD) 38 (>60 ml/min/1.73 sqM); Potassium 4.9 mmol/L (3.5-5.1); Sodium 143 mmol/L (137-145); Total Bilirubin 0.5 mg/dL (0.2-1.3); Total Protein 7.5 g/dL (6.3-8.2)
[2024-05-10] MEDS: SODIUM CHLORIDE 0.9% 1,000 ML IV STA (19:59)
[2024-05-10] MEDS: HYDROmorphone 0.5 MG/0.5 ML SYRINGE IVP STA (20:02)
[2024-05-10] MEDS: ONDANSETRON 4 MG/2 ML VIAL IVP STA (20:02)
== END 2024-05-10 21:03 | disposition home or self-care (01) ==
LOC: EC 14:37
DX: G89.29 Other chronic pain (principal); R10.9 Unspecified abdominal pain; F17.290 Nicotine dependence, other tobacco product, uncomplicated
CPT/HCPCS: 36415; 80053; 82150; 83605; 83690; 85025; 99285; 96374; 96375; 96361; J2405; J1171

== ENCOUNTER 2024-05-27 00:33 | Emergency (ER) | payer OTHER ==
[2024-05-27 00:39] VITALS: RESP 18
--- NOTE | 2024-05-27 01:22 | ED ---
Lower Extremity Injury HPI - General Chief Complaint: Extremity Injury, Lower Stated Complaint: R Knee Pain Time Seen by Provider: 05/27/24 00:43 Source: patient, RN notes reviewed Mode of arrival: ambulatory Limitations: no limitations - History of Present Illness Initial Comments: This is a 39-year-old male who presents to the emergency department for right knee pain. Patient has a history of chronic knee pain secondary to an old injury. States that it occasionally flares up on him, which has been the case over the last 3 weeks. However, states that as a result of the pain he is now barely able to bend the leg or put any pressure on it. Denies any new injuries. Complaint: knee injury - Related Data Home Medications Medication Instructions Recorded Confirmed calcitrioL 0.25 mcg PO TUFR 07/16/22 02/20/24 Ergocalciferol [Vitamin D2 (1250 1,250 mcg PO Q30D 08/14/22 02/20/24 Mcg = 39415 Iu)] Sildenafil Citrate 100 mg PO DAILY PRN 01/05/23 02/20/24 Dapagliflozin Propanediol [Farxiga] 5 mg PO DAILY 02/17/24 02/20/24 Dextroamphetamine/Amphetamine 30 mg PO BID 02/17/24 02/20/24 [Adderall] Montelukast [Singulair] 10 mg PO DAILY 02/17/24 02/20/24 Omeprazole 40 mg PO DAILY 02/17/24 02/20/24 Tiotropium Br/Olodaterol HCl 2 puff INHALATION RT-DAILY 02/17/24 02/20/24 [Stiolto Respimat Inhaler (60)] QUEtiapine FUMARATE [SEROquel] 25 mg PO HS 02/20/24 02/20/24 Previous Rx's Medication Instructions Recorded Acetaminophen Tab [Tylenol] 650 mg PO Q6HR PRN tab 02/23/24 amLODIPine [Norvasc] 5 mg PO DAILY 90 Days #90 tab 02/23/24 Allergies Allergy/AdvReac Type Severity Reaction Status Date / Time No Known Allergies Allergy Verified 05/27/24 00:39 Review of Systems ROS Statement: Those systems with pertinent positive or pertinent negative responses have been documented in the HPI. ROS Other: All systems not noted in ROS Statement are negative. Past Medical History Past Medical History: Dialysis, Hypertension, Liver Disease, Pneumonia, Renal Disease Additional Past Medical History / Comment(s): ETOH abuse last drink 03/06/2019, alcoholic hepatitis, 02/05/17 serology lab +for hepatitis C but pt unawarehas antibodies, B12 deficiency, hx of IVDA-heroin but none for almost 9. yrs, 03-14-2020 last dialysis History of Any Multi-Drug Resistant Organisms: None Reported, C-DIFF Date of last positivie culture/infection: 2018 MDRO Source:: stool Past Surgical History: Cholecystectomy Additional Past Surgical History / Comment(s): tracheotomy, PEG tube placement, stent in gall bladder and removed , L arm fistula Past Anesthesia/Blood Transfusion Reactions: No Reported Reaction Past Psychological History: ADD/ADHD Smoking Status: Current every day smoker, Vaper Past Alcohol Use History: None Reported Past Drug Use History: None Reported - Past Family History Father Family Medical History: No Reported History Additional Family Medical History / Comment(s): Father is a heroin addict clean 2-1/2 years now. Mother Family Medical History: Diabetes Mellitus, Hypertension General Exam Limitations: no limitations General appearance: alert, in no apparent distress Head exam: Present: atraumatic, normocephalic, normal inspection Respiratory exam: Present: normal lung sounds bilaterally. Absent: respiratory distress, wheezes, rales, rhonchi, stridor Cardiovascular Exam: Present: regular rate, normal rhythm, normal heart sounds. Absent: systolic murmur, diastolic murmur, rubs, gallop, clicks Extremities exam: Present: other (Tenderness to palpation over the right knee. No swelling or ecchymosis. Range of motion limited by pain. No swelling, erythema, or tenderness to the calf or thigh. 2+ DP and PT pulses) Neurological exam: Present: alert, oriented X3, CN II-XII intact Psychiatric exam: Present: normal affect, normal mood Skin exam: Present: warm, dry, intact, normal color. Absent: rash Course Vital Signs 05/27/24 05/27/24 00:37 03:13 Temperature 98.4 F 97.8 F Pulse Rate 125 H 79 Respiratory 18 18 Rate Blood Pressure 154/104 130/78 O2 Sat by Pulse 99 99 Oximetry Medical Decision Making - Medical Decision Making This is a 39-year-old male who presents to the emergency department for right kn ee pain. Was pt. sent in by a medical professional or institution? @ -No Did you speak to anyone other than the patient for history? @ -No Did you review nursing and triage notes? @ -Yes, and I agree, it is accurate with regards to the patient's symptoms. Were old charts reviewed? @ -No Differential Diagnosis? @ -Differential Musculoskeletal Muscular strain, contusion, ligament sprain, fracture, arthritis, septic arthritis, bursitis, cellulitis, muscle spasm, nerve compression, DVT, arterial occlusion, herpes zoster, electrolyte abnormality, tumor.... This is not meant to be in all inclusive list EKG interpreted by me (3pts min.)? @ -Not obtained X-rays interpreted by me (1pt min.)? @ -X-ray of the right knee obtained. My interpretation identifies no acute fractures. CT interpreted by me (1pt min.)? @ -Not obtained U/S interpreted by me (1pt. min.)? @ -Not obtained What testing was considered but not performed? (CT, X-rays, U/S, labs)? Why? @ -None What meds were considered but not given? Why? @ -None Did you discuss the management of the patient with other professionals? @ -No Did you reconcile home meds? @ -No Was smoking cessation discussed for >3mins.? @ -No Was critical care preformed (if so, how long)? @ -No Were there social determinants of health that impacted care today? How? (Homelessness, low income, unemployed, alcoholism, drug addiction, transportation, low edu. Level, literacy, decrease access to med. care, snf, rehab)? @ -No Was there de-escalation of care discussed even if they declined? (Discuss DNR or withdrawal of care, Hospice)? @ -No What co-morbidities impacted this encounter? (DM, HTN, Smoking, COPD, CAD, Cancer, CVA, Hep., AIDS, mental health diagnosis, sleep apnea, morbid obesity)? @ -None Was patient admitted / discharged? @ -Discharged. X-ray of the right knee obtained revealing no acute process. Physical examination also unremarkable. Pain treated in the emergency department. He declined a knee immobilizer and requested an Dillon bandage inside. This was applied. Also advised he can use an [id number] knee brace. Information for orthopedic follow-up provided. Patient discharged home in stable condition. Case discussed with ED attending Dr. Robertson. Return precautions reviewed in depth, the patient is instructed to return to the emergency department with any new, worsening, or concerning symptoms. Patient verbalized understanding. Undiagnosed new problem with uncertain prognosis? @ -None Drug Therapy requiring intensive monitoring for toxicity (Heparin, Nitro, Insulin, Cardizem)? @ -None Were any procedures done? @ -None Diagnosis/symptom? @ -Right knee pain Acute, or Chronic, or Acute on Chronic? @ -Acute on chronic Uncomplicated (without systemic symptoms) or Complicated (systemic symptoms)? @ -Uncomplicated Side effects of treatment? @ -None Exacerbation, Progression, or Severe Exacerbation] @ -Exacerbation Poses a threat to life or bodily function? @ -No - Radiology Data Radiology results: report reviewed, image reviewed Disposition Clinical Impression: Right knee pain Disposition: HOME SELF-CARE Instructions (If sedation given, give patient instructions): Knee Pain (ED) Additional Instructions: Return to the emergency department with any new, worsening, or concerning symptoms. Contact orthopedics listed below for a follow-up appointment. Let them know that you were seen in the emergency department for the knee pain and they will see you as an ER follow-up patient. Follow up with your primary care provider in 1-2 days. Is patient prescribed a controlled substance at d/c from ED?: No Referrals: Maksim Schultz MD [Primary Care Provider] - 1-2 days Larry Limon MD [STAFF PHYSICIAN] - 1-2 days Time of Disposition: 02:59
[2024-05-27] MEDS: HYDROmorphone 1 MG/ML 1 ML SYRINGE IM STA ×3 (01:24→03:03)
[2024-05-27] MEDS: ORPHENADRINE 30 MG/ML 2 ML VIAL IM STA (01:24)
--- NOTE | 2024-05-27 02:26 | XR ---
EXAM: XR Right Knee, 3 Views CLINICAL HISTORY: right knee pain from old injury TECHNIQUE: Three views of the right knee. COMPARISON: No relevant prior studies available. FINDINGS: Bones/joints: No fracture or dislocation. Soft tissues: Unremarkable. IMPRESSION: Normal right knee x-rays.
[2024-05-27] MEDS ORDERED: HYDROmorphone 1 MG/ML 1 ML SYRINGE IVP STA (02:57)
[2024-05-27 03:14] VITALS: BP 130/78; PULSE 79; TEMP 97.8
== END 2024-05-27 03:13 | disposition home or self-care (01) ==
LOC: EC 00:33
DX: M25.561 Pain in right knee (principal); F17.290 Nicotine dependence, other tobacco product, uncomplicated
CPT/HCPCS: 73562; 99283; 96372 ×3; J2360; J1171

== ENCOUNTER 2024-06-26 05:16 | Emergency (ER) | payer OTHER ==
[2024-06-26 05:21] VITALS: RESP 18; TEMP 98.8
--- NOTE | 2024-06-26 05:22 | ED ---
General Adult HPI - General Chief complaint: Extremity Injury, Lower Stated complaint: R Knee Pain Time Seen by Provider: 06/26/24 05:17 Source: patient, RN notes reviewed, old records reviewed Mode of arrival: EMS - History of Present Illness Initial comments: 39-year-old male presenting with right knee injury. Patient states while playing hockey he fell onto his knee. This occurred yesterday. He said pain in the anterior surface of the knee since the injury. He has a remote injury to this knee which gives him trouble from time to time. He did not note any swelling. He has tried Tylenol and ice without relief. - Related Data Home Medications Medication Instructions Recorded Confirmed calcitrioL 0.25 mcg PO TUFR 07/16/22 02/20/24 Ergocalciferol [Vitamin D2 (1250 1,250 mcg PO Q30D 08/14/22 02/20/24 Mcg = 10675 Iu)] Sildenafil Citrate 100 mg PO DAILY PRN 01/05/23 02/20/24 Dapagliflozin Propanediol [Farxiga] 5 mg PO DAILY 02/17/24 02/20/24 Dextroamphetamine/Amphetamine 30 mg PO BID 02/17/24 02/20/24 [Adderall] Montelukast [Singulair] 10 mg PO DAILY 02/17/24 02/20/24 Omeprazole 40 mg PO DAILY 02/17/24 02/20/24 Tiotropium Br/Olodaterol HCl 2 puff INHALATION RT-DAILY 02/17/24 02/20/24 [Stiolto Respimat Inhaler (60)] QUEtiapine FUMARATE [SEROquel] 25 mg PO HS 02/20/24 02/20/24 Previous Rx's Medication Instructions Recorded Acetaminophen Tab [Tylenol] 650 mg PO Q6HR PRN tab 02/23/24 amLODIPine [Norvasc] 5 mg PO DAILY 90 Days #90 tab 02/23/24 Allergies Allergy/AdvReac Type Severity Reaction Status Date / Time No Known Allergies Allergy Verified 06/26/24 05:21 Review of Systems ROS Statement: Those systems with pertinent positive or pertinent negative responses have been documented in the HPI. ROS Other: All systems not noted in ROS Statement are negative. Past Medical History Past Medical History: Dialysis, Hypertension, Liver Disease, Pneumonia, Renal Disease Additional Past Medical History / Comment(s): ETOH abuse last drink 03/06/2019, alcoholic hepatitis, 02/05/17 serology lab +for hepatitis C but pt unawarehas antibodies, B12 deficiency, hx of IVDA-heroin but none for almost 9. yrs, 03-14-2020 last dialysis History of Any Multi-Drug Resistant Organisms: C-DIFF Date of last positivie culture/infection: 2018 MDRO Source:: stool Past Surgical History: Cholecystectomy Additional Past Surgical History / Comment(s): tracheotomy, PEG tube placement, stent in gall bladder and removed , L arm fistula Past Anesthesia/Blood Transfusion Reactions: No Reported Reaction Past Psychological History: ADD/ADHD Smoking Status: Vaper Past Alcohol Use History: None Reported Past Drug Use History: None Reported - Past Family History Father Family Medical History: No Reported History Additional Family Medical History / Comment(s): Father is a heroin addict clean 2-1/2 years now. Mother Family Medical History: Diabetes Mellitus, Hypertension General Exam General appearance: alert, in no apparent distress Head exam: Present: atraumatic, normocephalic Eye exam: Present: normal appearance, PERRL Neck exam: Present: normal inspection. Absent: tenderness, meningismus Respiratory exam: Present: normal lung sounds bilaterally. Absent: respiratory distress Cardiovascular Exam: Present: regular rate, normal rhythm GI/Abdominal exam: Present: soft. Absent: distended, tenderness Extremities exam: Present: tenderness, normal capillary refill, other (No external signs of trauma, no joint effusion, decreased range of motion secondary to pain, distal pulses intact.). Absent: pedal edema, joint swelling Neurological exam: Present: alert, oriented X3, CN II-XII intact. Absent: motor sensory deficit Psychiatric exam: Present: normal affect, normal mood Course Vital Signs 06/26/24 05:17 Temperature 98.8 F Pulse Rate 63 Respiratory 18 Rate Blood Pressure 148/108 O2 Sat by Pulse 100 Oximetry Medical Decision Making - Medical Decision Making Was pt. sent in by a medical professional or institution (, PA, RISK CONTROL CONSULTANT, urgent care, hospital, or halfway...) When possible be specific @ -No Did you speak to anyone other than the patient for history (EMS, parent, family, police, friend...)? What history was obtained from this source @EMS Did you review nursing and triage notes (agree or disagree)? Why? @ -I reviewed and agree with nursing and triage notes Were old charts reviewed (outside hosp., previous admission, EMS record, old EKG, old radiological studies, urgent care reports/EKG's, halfway records)? Report findings @ -No old charts were reviewed Differential Musculoskeletal Muscular strain, contusion, ligament sprain, fracture, arthritis, septic arthritis, bursitis, cellulitis, muscle spasm, nerve compression, DVT, arterial occlusion, herpes zoster, electrolyte abnormality, tumor.... This is not meant to be in all inclusive list EKG interpreted by me (3pts min.). @ -As above X-rays interpreted by me (1pt min.). @ -X-ray of the right knee negative for displaced fracture no dislocation, no acute findings CT interpreted by me (1pt min.). @ -None done U/S interpreted by me (1pt. min.). @ -None done What testing was considered but not performed or refused? (CT, X-rays, U/S, labs)? Why? @ -None What meds were considered but not given or refused? Why? @ -None Did you discuss the management of the patient with other professionals (professionals i.e. , PA, RISK CONTROL CONSULTANT, lab, RT, psych nurse, social media job titles, wall steamer, teacher, food safety officer, corrections caseworker)? Give summary @ -No Was smoking cessation discussed for >3mins.? @ -No Was critical care preformed (if so, how long)? @ -No Were there social determinants of health that impacted care today? How? (Homelessness, low income, unemployed, alcoholism, drug addiction, transportation, low edu. Level, literacy, decrease access to med. care, longterm, rehab)? @ -No Was there de-escalation of care discussed even if they declined (Discuss DNR or withdrawal of care, Hospice)? DNR status @ -No What co-morbidities impacted this encounter? (DM, HTN, Smoking, COPD, CAD, Cancer, CVA, ARF, Chemo, Hep., AIDS, mental health diagnosis, sleep apnea, morbid obesity)? @ -Chronic pain, chronic kidney disease Was patient admitted / discharged? Hospital course, mention meds given and route, prescriptions, significant lab abnormalities, going to OR and other pertinent info. @39-year-old male with right knee pain after falling on it while playing hockey. There is no ecchymosis. No joint effusion on exam. Skin is intact. Distal pulses intact. X-ray negative for displaced fracture. Patient will continue Tylenol and ice. He is placed in an [place] wrap and the emergency department. Patient cannot take anti-inflammatories due to chronic kidney disease. Undiagnosed new problem with uncertain prognosis? @ -No Drug Therapy requiring intensive monitoring for toxicity (Heparin, Nitro, Insulin, Cardizem)? @ -No Were any procedures done? @ -No Diagnosis/symptom? @ -Knee contusion Acute, or Chronic, or Acute on Chronic? @ -[Acute Uncomplicated (without systemic symptoms) or Complicated (systemic symptoms)? @ -Default Side effects of treatment? @ -No Exacerbation, Progression, or Severe Exacerbation? @ -No Poses a threat to life or bodily function? How? (Chest pain, [place], [place], pneumonia, PE, COPD, DKA, ARF, appy, cholecystitis, CVA, Diverticulitis, Homicidal, Suicidal, threat to staff... and all critical care pts) @ -No Disposition Clinical Impression: Right knee pain Disposition: HOME SELF-CARE Condition: Good Instructions (If sedation given, give patient instructions): Knee Sprain (ED) Additional Instructions: If symptoms persist please follow-up with your primary care provider. He may require repeat x-ray or possible further evaluation. Is patient prescribed a controlled substance at d/c from ED?: No Referrals: Maksim Schultz MD [Primary Care Provider] - 1-2 days Time of Disposition: 05:40
[2024-06-26 06:03] VITALS: BP 152/98; PULSE 79
--- NOTE | 2024-06-26 06:04 | XR ---
EXAM: XR Right Knee, 3 Views CLINICAL HISTORY: ITS.REASON XR Reason: fall/pain TECHNIQUE: Three views of the right knee. COMPARISON: No relevant prior studies available. FINDINGS: Bones/joints: Unremarkable. No acute fracture. No dislocation. Soft tissues: Unremarkable. IMPRESSION: Normal right knee x-rays.
== END 2024-06-26 06:47 | disposition home or self-care (01) ==
LOC: EC 05:16
DX: S80.01XA Contusion of right knee, initial encounter (principal); Z99.2 Dependence on renal dialysis; F17.290 Nicotine dependence, other tobacco product, uncomplicated; W18.30XA Fall on same level, unspecified, initial encounter; Y93.22 Activity, ice hockey
CPT/HCPCS: 99283

== ENCOUNTER 2024-11-01 07:51 | Emergency (ER) | payer OTHER ==
--- NOTE | 2024-11-01 08:10 | ED ---
Abdominal Pain HPI - General Chief Complaint: Abdominal Pain Stated Complaint: Abd Pain Time Seen by Provider: 11/01/24 07:59 Source: patient, RN notes reviewed Mode of arrival: ambulatory Limitations: no limitations - History of Present Illness Initial Comments: This is a 39-year-old male who presents to the emergency department for abdominal pain. The patient reports right and left-sided abdominal pain for the last 3 days. He has a history of chronic pancreatitis and states that it feels like a typical flareup. He used to have flares much more frequently and presented here on a very regular basis. However, states that he has not had a flareup of abdominal pain in around 6 months and had actually been doing very well. He has been unable to sleep for the last couple of days due to the pain. Also reports associated nausea and vomiting. States that he has "dual ducts" and has had to make dietary changes, which had been helping. However, believes that he ate something in the last few days that flared this up. MD Complaint: abdominal pain - Related Data Home Medications Medication Instructions Recorded Confirmed calcitrioL 0.25 mcg PO TUFR 07/16/22 02/20/24 Ergocalciferol [Vitamin D2 (1250 1,250 mcg PO Q30D 08/14/22 02/20/24 Mcg = 60196 Iu)] Sildenafil Citrate 100 mg PO DAILY PRN 01/05/23 02/20/24 Dapagliflozin Propanediol [Farxiga] 5 mg PO DAILY 02/17/24 02/20/24 Dextroamphetamine/Amphetamine 30 mg PO BID 02/17/24 02/20/24 [Adderall] Montelukast [Singulair] 10 mg PO DAILY 02/17/24 02/20/24 Omeprazole 40 mg PO DAILY 02/17/24 02/20/24 Tiotropium Br/Olodaterol HCl 2 puff INHALATION RT-DAILY 02/17/24 02/20/24 [Stiolto Respimat Inhaler (60)] QUEtiapine FUMARATE [SEROquel] 25 mg PO HS 02/20/24 02/20/24 Previous Rx's Medication Instructions Recorded Acetaminophen Tab [Tylenol] 650 mg PO Q6HR PRN tab 02/23/24 amLODIPine [Norvasc] 5 mg PO DAILY 90 Days #90 tab 02/23/24 Allergies Allergy/AdvReac Type Severity Reaction Status Date / Time No Known Allergies Allergy Verified 11/01/24 07:57 Review of Systems ROS Statement: Those systems with pertinent positive or pertinent negative responses have been documented in the HPI. ROS Other: All systems not noted in ROS Statement are negative. Past Medical History Past Medical History: Dialysis, Hypertension, Liver Disease, Pneumonia, Renal Disease Additional Past Medical History / Comment(s): ETOH abuse last drink 03/06/2019, alcoholic hepatitis, 02/05/17 serology lab +for hepatitis C but pt unawarehas antibodies, B12 deficiency, hx of IVDA-heroin but none for almost 9. yrs, 1 0- last dialysis History of Any Multi-Drug Resistant Organisms: C-DIFF Date of last positivie culture/infection: 2018 MDRO Source:: stool Past Surgical History: Cholecystectomy Additional Past Surgical History / Comment(s): tracheotomy, PEG tube placement, stent in gall bladder and removed , L arm fistula Past Anesthesia/Blood Transfusion Reactions: No Reported Reaction Past Psychological History: ADD/ADHD Smoking Status: Vaper Past Alcohol Use History: None Reported Past Drug Use History: None Reported - Past Family History Father Family Medical History: No Reported History Additional Family Medical History / Comment(s): Father is a heroin addict clean 2-1/2 years now. Mother Family Medical History: Diabetes Mellitus, Hypertension General Exam Limitations: no limitations General appearance: alert, in no apparent distress Head exam: Present: atraumatic, normocephalic, normal inspection Respiratory exam: Present: normal lung sounds bilaterally. Absent: respiratory distress, wheezes, rales, rhonchi, stridor Cardiovascular Exam: Present: regular rate, normal rhythm GI/Abdominal exam: Present: soft, tenderness (RLQ and LUQ). Absent: distended Neurological exam: Present: alert, oriented X3, CN II-XII intact Psychiatric exam: Present: normal affect, normal mood Skin exam: Present: warm, dry, intact, normal color. Absent: rash Course Vital Signs 11/01/24 11/01/24 07:54 09:08 Temperature 98.6 F 98.4 F Pulse Rate 107 H 61 Respiratory 20 18 Rate Blood Pressure 186/108 154/75 O2 Sat by Pulse 97 98 Oximetry Medical Decision Making - Medical Decision Making This is a 39-year-old male who presents to the emergency department for abdominal pain. Was pt. sent in by a medical professional or institution? @ -No Did you speak to anyone other than the patient for history? @ -No Did you review nursing and triage notes? @ -Yes, and I agree, it is accurate with regards to the patient's symptoms. Were old charts reviewed? @ -No Differential Diagnosis? @ -Differential Abdominal Pain Men: Appendicitis, cholecystitis, diverticulosis, ischemic bowel, pancreatitis, hepatitis, UTI, gastroenteritis, AAA, incarcerated hernia, bowel obstruction, constipation, inflammatory bowel, hepatitis, peptic ulcer disease, splenic inf arction, perforated viscus, testicular torsion, this is not meant to be an all- inclusive list EKG interpreted by me (3pts min.)? @ -Not obtained X-rays interpreted by me (1pt min.)? @ -Not obtained CT interpreted by me (1pt min.)? @ -Not obtained U/S interpreted by me (1pt. min.)? @ -Not obtained What testing was considered but not performed? (CT, X-rays, U/S, labs)? Why? @ -None What meds were considered but not given? Why? @ -None Did you discuss the management of the patient with other professionals? @ -No Did you reconcile home meds? @ -No Was smoking cessation discussed for >3mins.? @ -No Was critical care preformed (if so, how long)? @ -No Were there social determinants of health that impacted care today? How? ( Homelessness, low income, unemployed, alcoholism, drug addiction, transportation, low edu. Level, literacy, decrease access to med. care, [facility], rehab)? @ -No Was there de-escalation of care discussed even if they declined? (Discuss DNR or withdrawal of care, Hospice)? @ -No What co-morbidities impacted this encounter? (DM, HTN, Smoking, COPD, CAD, Cancer, CVA, Hep., AIDS, mental health diagnosis, sleep apnea, morbid obesity)? @ -Chronic pancreatitis, CKD Was patient admitted / discharged? @ -Discharged. Lab work unremarkable. Renal function is stable when compared with prior. Pancreatic enzymes within normal limits. Patient's symptoms were well-controlled in the emergency department and he was comfortable with discharge home. He will follow-up with his PCP for reevaluation. Patient discharged home in stable condition. Case discussed with ED attending Dr. Ring. Return precautions reviewed in depth, the patient is instructed to return to the emergency department with any new, worsening, or concerning symptoms. Patient verbalized understanding. Undiagnosed new problem with uncertain prognosis? @ -None Drug Therapy requiring intensive monitoring for toxicity (Heparin, Nitro, Insulin, Cardizem)? @ -None Were any procedures done? @ -None Diagnosis/symptom? @ -Abdominal pain Acute, or Chronic, or Acute on Chronic? @ -Acute Uncomplicated (without systemic symptoms) or Complicated (systemic symptoms)? @ -Uncomplicated Side effects of treatment? @ -None Exacerbation, Progression, or Severe Exacerbation] @ -Not applicable Poses a threat to life or bodily function? @ -No - Lab Data Result diagrams: 11/01/24 08:22 11/01/24 08:22 Lab Results 11/01/24 11/01/24 11/01/24 Range/Units 08:22 08:22 08:22 WBC 7.89 (4.50-10.00) 10*3/uL RBC 5.31 (4.40-5.60) 10*6/uL Hgb 15.6 (13.0-17.0) g/dL Hct 46.9 (39.6-50.0) % MCV 88.3 (80.0-97.0) fL MCH 29.4 (27.0-32.0) pg MCHC 33.3 (32.0-37.0) g/dL Plt Count 166 (140-440) 10*3/uL MPV 9.8 (9.5-12.2) fL Immature Gran % (Auto) 0.4 % Neutrophils % 70.8 % Lymphocytes % 18.8 % Monocytes % 8.2 % Eosinophils % 1.4 % Basophils % 0.4 % Immature Gran # 0.03 (0.00-0.04) 10*3/uL Neutrophils # 5.59 (1.80-7.70) 10*3/uL Lymphocytes # 1.48 (0.90-5.00) 10*3/uL Monocytes # 0.65 (0.20-1.00) 10*3/uL Eosinophils # 0.11 (0.04-0.35) 10*3/uL Basophils # 0.03 (0.00-0.10) 10*3/uL Sodium 139 (137-145) mmol/L Potassium 4.3 (3.5-5.1) mmol/L Chloride 111 H (98-107) mmol/L Carbon Dioxide 17 L (22-30) mmol/L Anion Gap 11 mmol/L BUN 29 H (9-20) mg/dL Creatinine 1.96 H (0.66-1.25) mg/dL Est GFR (CKD-EPI)AfAm 49 (>60 ml/min/1.73 sqM) Est GFR (CKD-EPI)NonAf 42 (>60 ml/min/1.73 sqM) Glucose 92 (74-99) mg/dL Plasma Lactic Acid Niko 0.6 L (0.7-2.0) mmol/L Calcium 9.8 (8.4-10.2) mg/dL Total Bilirubin 0.7 (0.2-1.3) mg/dL AST 40 (17-59) U/L ALT 29 (4-49) U/L Alkaline Phosphatase 101 (38-126) U/L Total Protein 7.0 (6.3-8.2) g/dL Albumin 4.3 (3.5-5.0) g/dL Amylase 86 (30-110) U/L Lipase 197 (23-300) U/L Disposition Clinical Impression: Abdominal pain Disposition: HOME SELF-CARE Instructions (If sedation given, give patient instructions): Abdominal Pain (ED) Additional Instructions: Return to the emergency department with any new, worsening, or concerning s ymptoms. Follow up with your primary care provider in 1-2 days. Is patient prescribed a controlled substance at d/c from ED?: No Referrals: Maksim Schultz MD [Primary Care Provider] - 1-2 days Time of Disposition: 08:55
[2024-11-01] MEDS: SODIUM CHLORIDE 0.9% 1,000 ML IV ONE (08:24)
[2024-11-01] MEDS: ONDANSETRON 4 MG/2 ML VIAL IVP STA (08:26)
[2024-11-01] MEDS: HYDROmorphone 1 MG/ML 1 ML SYRINGE IVP STA ×2 (08:26→09:09)
[2024-11-01 08:33] LABS: Basophils # (A) 0.03 10*3/uL (0.00-0.10); Basophils % (A) 0.4 %; Eosinophils # (A) 0.11 10*3/uL (0.04-0.35); Eosinophils % (A) 1.4 %; HCT 46.9 % (39.6-50.0); HGB 15.6 g/dL (13.0-17.0); Lymphocytes # (A) 1.48 10*3/uL (0.90-5.00); Lymphocytes % (A) 18.8 %; MCH 29.4 pg (27.0-32.0); MCHC 33.3 g/dL (32.0-37.0); MCV 88.3 fL (80.0-97.0); Mean Platelet Volume 9.8 fL (9.5-12.2); Monocytes # (A) 0.65 10*3/uL (0.20-1.00); Monocytes % (A) 8.2 %; Neutrophils # (A) 5.59 10*3/uL (1.80-7.70); Neutrophils % (A) 70.8 %; Platelet Count 166 10*3/uL (140-440); RBC 5.31 10*6/uL (4.40-5.60); RDW 14.1 % (11.5-14.5); WBC 7.89 10*3/uL (4.50-10.00)
[2024-11-01 08:46] LABS: ALT 29 U/L (4-49); AST 40 U/L (17-59); African American GFR (CKD) 49 (>60 ml/min/1.73 sqM); Albumin 4.3 g/dL (3.5-5.0); Alkaline Phosphatase 101 U/L (38-126); Amylase 86 U/L (30-110); Anion Gap 11 mmol/L; Blood Urea Nitrogen 29 mg/dL (9-20); Calcium 9.8 mg/dL (8.4-10.2); Carbon Dioxide 17 mmol/L (22-30); Chloride 111 mmol/L (98-107); Glucose 92 mg/dL (74-99); Lipase 197 U/L (23-300); Non-African American GFR(CKD) 42 (>60 ml/min/1.73 sqM); Potassium 4.3 mmol/L (3.5-5.1); Sodium 139 mmol/L (137-145); Total Bilirubin 0.7 mg/dL (0.2-1.3)
[2024-11-01 09:09] VITALS: BP 154/75; PULSE 61; RESP 18; TEMP 98.4
[2024-11-01] MEDS: ACET/COD 300 MG/30 MG STARTER PACK 6 TAB BTL PO STA (09:09)
[2024-11-01] MEDS: ONDANSETRON 4 MG ODT STARTER PACK 2 TAB BTL PO STA (09:09)
== END 2024-11-01 09:20 | disposition home or self-care (01) ==
LOC: EC 07:51
DX: R10.31 Right lower quadrant pain (principal); R10.12 Left upper quadrant pain; K86.1 Other chronic pancreatitis; I12.9 Hypertensive chronic kidney disease with stage 1 through stage 4 chronic kidney disease, or unspecified chronic kidney disease; N18.9 Chronic kidney disease, unspecified; F17.290 Nicotine dependence, other tobacco product, uncomplicated; Z99.2 Dependence on renal dialysis
CPT/HCPCS: 36415; 80053; 82150; 83605; 83690; 85025; 99284; 96374; 96375; 96376; 96361; J2405; J1171; S0119

== ENCOUNTER 2024-11-16 14:13 | Observation (INO) | payer OTHER ==
--- NOTE | 2024-11-16 14:39 | ED ---
General Adult HPI - General Chief complaint: Abdominal Pain Stated complaint: R abd pain Time Seen by Provider: 11/16/24 14:18 Source: patient Mode of arrival: ambulatory Limitations: no limitations - History of Present Illness Initial comments: Dictation was produced using [employer] dictation software. please excuse any grammatical, word or spelling errors. Chief Complaint: 39-year-old male presents with concern of pancreatitis flare History of Present Illness: Patient 39-year-old male who states that he has a past medical history of pancreatitis. States that he has what he describes as dual biliary ducts. He has history of cholecystectomy. For the last 4 days she has had abdominal pain. Patient has had multiple admissions for pancreatitis. Denies any fever chills or night sweats. Complains of diffuse abdominal pain. The ROS documented in this emergency department record has been reviewed and confirmed by me. Those systems with pertinent positive or negative responses have been documented in the HPI. All other systems are other negative and/or noncontributory. - Related Data Home Medications Medication Instructions Recorded Confirmed calcitrioL 0.25 mcg PO TUFR 07/16/22 02/20/24 Ergocalciferol [Vitamin D2 (1250 1,250 mcg PO Q30D 08/14/22 02/20/24 Mcg = 38953 Iu)] Sildenafil Citrate 100 mg PO DAILY PRN 01/05/23 02/20/24 Dapagliflozin Propanediol [Farxiga] 5 mg PO DAILY 02/17/24 02/20/24 Dextroamphetamine/Amphetamine 30 mg PO BID 02/17/24 02/20/24 [Adderall] Montelukast [Singulair] 10 mg PO DAILY 02/17/24 02/20/24 Omeprazole 40 mg PO DAILY 02/17/24 02/20/24 Tiotropium Br/Olodaterol HCl 2 puff INHALATION RT-DAILY 02/17/24 02/20/24 [Stiolto Respimat Inhaler (60)] QUEtiapine FUMARATE [SEROquel] 25 mg PO HS 02/20/24 02/20/24 Previous Rx's Medication Instructions Recorded Acetaminophen Tab [Tylenol] 650 mg PO Q6HR PRN tab 02/23/24 amLODIPine [Norvasc] 5 mg PO DAILY 90 Days #90 tab 02/23/24 Allergies Allergy/AdvReac Type Severity Reaction Status Date / Time No Known Allergies Allergy Verified 11/16/24 14:16 Review of Systems ROS Statement: Those systems with pertinent positive or pertinent negative responses have been documented in the HPI. ROS Other: All systems not noted in ROS Statement are negative. Past Medical History Past Medical History: Dialysis, Hypertension, Liver Disease, Pneumonia, Renal Disease Additional Past Medical History / Comment(s): ETOH abuse last drink 03/06/2019, alcoholic hepatitis, 02/05/17 serology lab +for hepatitis C but pt unawarehas antibodies, B12 deficiency, hx of IVDA-heroin but none for almost 9. yrs, 03-14-2020 last dialysis History of Any Multi-Drug Resistant Organisms: C-DIFF Date of last positivie culture/infection: 2018 MDRO Source:: stool Past Surgical History: Cholecystectomy Additional Past Surgical History / Comment(s): tracheotomy, PEG tube placement, stent in gall bladder and removed , L arm fistula Past Anesthesia/Blood Transfusion Reactions: No Reported Reaction Past Psychological History: ADD/ADHD Smoking Status: Vaper Past Alcohol Use History: None Reported Past Drug Use History: None Reported - Past Family History Father Family Medical History: No Reported History Additional Family Medical History / Comment(s): Father is a heroin addict clean 2-1/2 years now. Mother Family Medical History: Diabetes Mellitus, Hypertension General Exam - General Exam Comments Initial Comments: PHYSICAL EXAM: General Impression: Alert and oriented x3, not in acute distress HEENT: Normocephalic atraumatic, extra-ocular movements intact, pupils equal and reactive to light bilaterally, mucous membranes moist. Cardiovascular: Heart regular rate and rhythm Chest: Able to complete full sentences, no retractions, no tachypnea Abdomen: abdomen soft, diffuse palpatory abdominal tenderness, non-distended, no organomegaly Musculoskeletal: Pulses present and equal in all extremities, no peripheral edema Motor: no focal deficits noted Neurological: CN II-XII grossly intact, no focal motor or sensory deficits noted Skin: Intact with no visualized rashes Psych: Normal affect and mood Limitations: no limitations Course Vital Signs 11/16/24 11/16/24 11/16/24 14:14 15:26 16:54 Temperature 98.2 F Pulse Rate 84 66 97 Respiratory 17 14 14 Rate Blood Pressure 143/93 147/104 150/100 O2 Sat by Pulse 99 99 99 Oximetry Medical Decision Making - Medical Decision Making Was pt. sent in by a medical professional or institution (, PA, LOGGING TRACTOR OPERATOR, urgent care, hospital, or jail...) When possible be specific @ -No Did you speak to anyone other than the patient for history (EMS, parent, family, police, friend...)? What history was obtained from this source @ -No Did you review nursing and triage notes (agree or disagree)? Why? @ -I reviewed and agree with nursing and triage notes Were old charts reviewed (outside hosp., previous admission, EMS record, old EKG, old radiological studies, urgent care reports/EKG's, jail records)? Report findings @ -No old charts were reviewed Differential Diagnosis (chest pain, altered mental status, abdominal pain women, abdominal pain men, vaginal bleeding, musculoskeletal, weakness, fever, dyspnea, syncope, headache, dizziness, GI bleed, back pain, seizure, CVA, palpatations, mental health)? @ -Differential Abdominal Pain Men: Appendicitis, cholecystitis, diverticulosis, ischemic bowel, pancreatitis, hepatitis, UTI, gastroenteritis, AAA, incarcerated hernia, bowel obstruction, constipation, inflammatory bowel, hepatitis, peptic ulcer disease, splenic infarction, perforated viscus, testicular torsion, this is not meant to be an all-inclusive list EKG interpreted by me (3pts min.). @ -None done X-rays interpreted by me (1pt min.). @ -None done CT interpreted by me (1pt min.). @ -CT ab pelvis shows no acute processes U/S interpreted by me (1pt. min.). @ -None done What testing was considered but not performed or refused? (CT, X-rays, U/S, labs)? Why? @ -None What meds were considered but not given or refused? Why? @ -None Was smoking cessation discussed for >3mins.? @ -No Were there social determinants of health that impacted care today? How? (Homelessness, low income, unemployed, alcoholism, drug addiction, transportation, low edu. Level, literacy, decrease access to med. care, penitentiary, rehab)? @ -No Was there de-escalation of care discussed even if they declined (Discuss DNR or withdrawal of care, Hospice)? DNR status @ -No What co-morbidities impacted this encounter? (DM, HTN, Smoking, COPD, CAD, Cancer, CVA, ARF, Chemo, Hep., AIDS, mental health diagnosis, sleep apnea, morbid obesity)? @ -Chronic abdominal pain Was patient admitted / discharged? Hospital course, mention meds given and route, prescriptions, significant lab abnormalities, going to OR and other pertinent info. @ -39-year-old male with history of chronic abdominal pain pancreatitis presents to the ER for abdominal pain. Vital signs upon arrival are within acceptable limits. Patient is tender abdomen. Laboratory evaluation is unremarkable. CT shows no acute processes. Patient was to be discharged however he request that we contact his primary care doctor for observation admission for pain control. Case discussed with Dr. Schultz who wanted patient be admitted. Requested that surgery be consulted. Did you discuss the management of the patient with other professionals (professionals i.e. , PA, LOGGING TRACTOR OPERATOR, lab, RT, psych nurse, criminal justice social worker, director of ancillary services, teacher, tax revenue officer, correctional casework specialist)? Give summary @ -See above Was critical care preformed (if so, how long)? @ -No Undiagnosed new problem with uncertain prognosis? @ -No Drug Therapy requiring intensive monitoring for toxicity (Heparin, Nitro, Insulin, Cardizem)? @ -No Were any procedures done? @ -No Diagnosis/symptom? Acute, or Chronic, or Acute on Chronic? Uncomplicated (without systemic symptoms) or Complicated (systemic symptoms)? @ -Intractable abdominal pain Side effects of treatment? @ -No Exacerbation, Progression, or Severe Exacerbation? @ -No Poses a threat to life or bodily function? How? (Chest pain, USA, MT, pneumonia, PE, COPD, DKA, ARF, appy, cholecystitis, CVA, Diverticulitis, Homicidal, Suicidal, threat to staff... and all critical care pts) @ -No - Lab Data Result diagrams: 11/16/24 15:13 11/16/24 15:13 Lab Results 11/16/24 11/16/24 Range/Units 15:13 15:13 WBC 5.86 (4.50-10.00) 10*3/uL RBC 5.69 H (4.40-5.60) 10*6/uL Hgb 16.8 (13.0-17.0) g/dL Hct 50.8 H (39.6-50.0) % MCV 89.3 (80.0-97.0) fL MCH 29.5 (27.0-32.0) pg MCHC 33.1 (32.0-37.0) g/dL Plt Count 164 (140-440) 10*3/uL MPV 10.0 (9.5-12.2) fL Immature Gran % (Auto) 0.3 % Neutrophils % 66.9 % Lymphocytes % 21.7 % Monocytes % 6.5 % Eosinophils % 3.9 % Basophils % 0.7 % Immature Gran # 0.02 (0.00-0.04) 10*3/uL Neutrophils # 3.92 (1.80-7.70) 10*3/uL Lymphocytes # 1.27 (0.90-5.00) 10*3/uL Monocytes # 0.38 (0.20-1.00) 10*3/uL Eosinophils # 0.23 (0.04-0.35) 10*3/uL Basophils # 0.04 (0.00-0.10) 10*3/uL Sodium 139 (137-145) mmol/L Potassium 5.1 (3.5-5.1) mmol/L Chloride 115 H (98-107) mmol/L Carbon Dioxide 16 L (22-30) mmol/L Anion Gap 8 mmol/L BUN 28 H (9-20) mg/dL Creatinine 1.58 H (0.66-1.25) mg/dL Est GFR (CKD-EPI)AfAm 63 (>60 ml/min/1.73 sqM) Est GFR (CKD-EPI)NonAf 55 (>60 ml/min/1.73 sqM) Glucose 88 (74-99) mg/dL Calcium 9.8 (8.4-10.2) mg/dL Total Bilirubin 0.8 (0.2-1.3) mg/dL AST 34 (17-59) U/L ALT 28 (4-49) U/L Alkaline Phosphatase 81 (38-126) U/L Total Protein 6.8 (6.3-8.2) g/dL Albumin 4.2 (3.5-5.0) g/dL Lipase 636 H (23-300) U/L Disposition Clinical Impression: Abdominal pain Disposition: ADMITTED IP TO THIS HOSP Condition: Fair Referrals: Maksim Schultz MD [Primary Care Provider] - 1-2 days Decision Time: 17:29
[2024-11-16] MEDS: SODIUM CHLORIDE 0.9% 1,000 ML IV STA (15:17)
[2024-11-16] MEDS: HYDROmorphone 1 MG/ML 1 ML SYRINGE IVP STA ×2 (15:18→17:06)
[2024-11-16 15:20] LABS: Basophils # (A) 0.04 10*3/uL (0.00-0.10); Basophils % (A) 0.7 %; Eosinophils # (A) 0.23 10*3/uL (0.04-0.35); Eosinophils % (A) 3.9 %; HCT 50.8 % (39.6-50.0); HGB 16.8 g/dL (13.0-17.0); Lymphocytes # (A) 1.27 10*3/uL (0.90-5.00); Lymphocytes % (A) 21.7 %; MCH 29.5 pg (27.0-32.0); MCHC 33.1 g/dL (32.0-37.0); MCV 89.3 fL (80.0-97.0); Monocytes # (A) 0.38 10*3/uL (0.20-1.00); Monocytes % (A) 6.5 %; Neutrophils # (A) 3.92 10*3/uL (1.80-7.70); Neutrophils % (A) 66.9 %; Platelet Count 164 10*3/uL (140-440); RBC 5.69 10*6/uL (4.40-5.60); RDW 14.1 % (11.5-14.5); WBC 5.86 10*3/uL (4.50-10.00)
[2024-11-16 15:33] LABS: ALT 28 U/L (4-49); AST 34 U/L (17-59); African American GFR (CKD) 63 (>60 ml/min/1.73 sqM); Albumin 4.2 g/dL (3.5-5.0); Alkaline Phosphatase 81 U/L (38-126); Anion Gap 8 mmol/L; Blood Urea Nitrogen 28 mg/dL (9-20); Calcium 9.8 mg/dL (8.4-10.2); Carbon Dioxide 16 mmol/L (22-30); Chloride 115 mmol/L (98-107); Glucose 88 mg/dL (74-99); Lipase 636 U/L (23-300); Non-African American GFR(CKD) 55 (>60 ml/min/1.73 sqM); Potassium 5.1 mmol/L (3.5-5.1); Sodium 139 mmol/L (137-145); Total Bilirubin 0.8 mg/dL (0.2-1.3); Total Protein 6.8 g/dL (6.3-8.2)
--- NOTE | 2024-11-16 16:04 | CT ---
EXAMINATION TYPE: CT abdomen pelvis w con DATE OF EXAM: 11/16/2024 COMPARISON: 02/01/2024 CLINICAL INDICATION: Male, 39 years old with history of abdominal pain; PHH, pancreatitis TECHNIQUE: Performed without Oral Contrast and with IV Contrast, patient injected with 100 mL of Isovue 300. CT DLP: [address] CTDI: mGy Automated exposure control for dose reduction was used. FINDINGS: The lung bases are clear. There are surgical absence of gallbladder. There is no biliary ductal dilatation. There is no focal mass or organomegaly involving the liver, pancreas or adrenal glands. The liver con tour is nodular consistent with cirrhosis. There is mild splenomegaly. There are no inflammatory gibson ges of the pancreas and there are no pancreatic pseudocysts. There is no solid renal mass or hydronephrosis and there is homogeneous contrast enhancement of the r enal parenchyma. The caliber the abdominal aorta is normal is no retroperitoneal adenopathy or hemorr rosemarie. The bowel loops are normal in caliber and there is no evidence of dilatation or obstruction. No infla mmatory changes are identified in the bowel wall or mesentery. There is no free intraperitoneal air or fluid. No pelvic mass, free fluid, abscess or adenopathy. The osseous structures and soft tissues are intact. IMPRESSION: 1. No pancreatic mass or acute or chronic pancreatitis. 2. Cirrhotic liver morphology and mild splenomegaly. 3. No acute changes within the abdomen or pelvis. [facility], , 11/16/2024 4:01 PM
[2024-11-16] MEDS ORDERED: NALOXONE 0.4 MG/ML 1 ML VIAL IV PRN (17:26)
[2024-11-16] MEDS: SODIUM CHLORIDE 0.9% 1,000 ML IV SCH (17:51)
[2024-11-16] MEDS ORDERED: HYDROmorphone 2 MG TAB PO PRN (20:00)
[2024-11-16] MEDS: HYDROmorphone 1 MG/ML 1 ML SYRINGE IVP PRN (20:22)
[2024-11-16] MEDS: ONDANSETRON 4 MG/2 ML VIAL IVP PRN (23:17)
--- NOTE | 2024-11-17 00:15 | HP ---
HISTORY AND PHYSICAL HISTORY OF PRESENT ILLNESS: White male came with 4 days history of abdominal pain. History of chronic pancreatitis. Had abdominal and pelvic CT for severe abdominal pain. CAT scan shows fibrosis. No pancreatic pseudocyst. No inflammatory changes. Loops are normal. PHYSICAL EXAMINATION: CARDIOVASCULAR: S1, S2. LUNGS: Clear. GI: Soft. There is diffuse tenderness across the abdomen. Mild guarding. No rebound sign. HEMATOLOGY: Negative Homans. PSYCH: Fair mood and affect. LABORATORY DATA: Show white count 5.6, hemoglobin 16.8. Lipase 636. ASSESSMENT AND PLAN: We will do a surgical consult for pancreatitis given chronic abdominal pains. Rehydrate. Prognosis guarded. Please see further orders. MMODL / IJN: [id number] /
[2024-11-17 06:08] LABS: Basophils # (A) 0.04 10*3/uL (0.00-0.10); Basophils % (A) 0.7 %; Eosinophils # (A) 0.23 10*3/uL (0.04-0.35); Eosinophils % (A) 4.1 %; HGB 16.4 g/dL (13.0-17.0); Lymphocytes # (A) 1.69 10*3/uL (0.90-5.00); Lymphocytes % (A) 29.8 %; MCH 29.5 pg (27.0-32.0); MCHC 32.2 g/dL (32.0-37.0); MCV 91.7 fL (80.0-97.0); Mean Platelet Volume 10.4 fL (9.5-12.2); Monocytes # (A) 0.44 10*3/uL (0.20-1.00); Monocytes % (A) 7.8 %; Neutrophils # (A) 3.25 10*3/uL (1.80-7.70); Neutrophils % (A) 57.2 %; Platelet Count 150 10*3/uL (140-440); RBC 5.56 10*6/uL (4.40-5.60); RDW 13.5 % (11.5-14.5); WBC 5.67 10*3/uL (4.50-10.00)
[2024-11-17 06:33] LABS: ALT 35 U/L (4-49); AST 45 U/L (17-59); African American GFR (CKD) 68 (>60 ml/min/1.73 sqM); Alkaline Phosphatase 77 U/L (38-126); Anion Gap 7 mmol/L; Blood Urea Nitrogen 20 mg/dL (9-20); Calcium 9.4 mg/dL (8.4-10.2); Carbon Dioxide 23 mmol/L (22-30); Chloride 107 mmol/L (98-107); Glucose 66 mg/dL (74-99); Lipase 737 U/L (23-300); Non-African American GFR(CKD) 59 (>60 ml/min/1.73 sqM); Potassium 4.4 mmol/L (3.5-5.1); Sodium 137 mmol/L (137-145); Total Bilirubin 0.8 mg/dL (0.2-1.3); Total Protein 6.5 g/dL (6.3-8.2)
[2024-11-17] MEDS: IPRATROPIUM-ALBUTEROL 3 ML NEB INHALATION SCH (07:48)
[2024-11-17] MEDS: amLODIPine 5 MG TAB PO SCH (08:55)
[2024-11-17] MEDS: QUEtiapine 50 MG TAB PO SCH (08:55)
[2024-11-17] MEDS: PANTOPRAZOLE 40 MG TABLET PO SCH (08:55)
[2024-11-17] MEDS: NON FORMULARY DRUG (Dextroamphetamine/Amphetamine [Adderall] 30 MG Tablet) PO SCH (10:09)
[2024-11-17] MEDS: LORazepam 1 MG/0.5 ML VIAL IV PRN (11:33)
--- NOTE | 2024-11-17 12:08 | P.GSCN ---
History of Present Illness Consult date: 11/17/24 History of present illness: CHIEF COMPLAINT: Abdominal pain HISTORY OF PRESENT ILLNESS: This is a 39-year-old who presented the hospital with complaints of epigastric abdominal pain that started 4 days ago after eating roast beef. He reports having nausea and vomiting. He reports that it feels like his pancreatitis flareups. He reports that the pain radiates to the back. He does have a prior history of alcohol abuse with alcohol hepatitis and pancreatitis. He has a history of a trans papillary biliary stent at [facility] with removal with lap cholecystectomy in July [address] Maradiaga. Patient does have a history of pancreatic divisum. He had a elevated lipase on admission. CT scan abdomen pelvis had reported a cirrhotic liver. Patient reports his last alcoholic drink was in 2018 PAST MEDICAL HISTORY: Dialysis, Hypertension, Liver Disease, Pneumonia, Renal Disease, ETOH abuse last drink 03/06/2019, alcoholic hepatitis, 02/05/17 serology lab +for hepatitis C but pt unawarehas antibodies, B12 deficiency, hx of IVDA-heroin but none for almost 9. yrs, 03-14-2020 last dialysis, C. difficile PAST SURGICAL HISTORY: Cholecystectomy, tracheotomy, PEG tube placement, stent in gall bladder and removed , L arm fistula MEDICATIONS: See below ALLERGIES: See below SOCIAL HISTORY: No illicit drug use. REVIEW OF SYSTEMS: CONSTITUTIONAL: Denies fever or chills. HEENT: Denies blurred vision, vision changes, or eye pain. Denies hemoptysis CARDIOVASCULAR: Denies chest pain or pressure. RESPIRATORY: No shortness of breath. GASTROINTESTINAL: See HPI for pertinent findings HEMATOLOGIC: Denies bleeding disorders. GENITOURINARY: Denies any blood in urine or increased urinary frequency. SKIN: Denies pruitis. Denies rash. PHYSICAL EXAM: VITAL SIGNS: Reviewed GENERAL: Well-developed in no acute distress. HEENT: No sclera icterus. Extraocular movements grossly intact. Moist buccal mucosa. Head is atraumatic, normocephalic. No nasal drainage. ABDOMEN: Soft. Nondistended. Tenderness palpation across the upper abdomen NEUROLOGIC: Alert and oriented. Cranial nerves II through XII grossly intact. LABORATORY DATA: WBC 5.67 Hgb 16.4 platelets 150 Sodium 137 potassium 4.4 creatinine 1.49 LFTs normal lipase 737 IMAGING: CT scan abdomen pelvis no pancreatic mass or acute or chronic pancreatitis. Cirrhotic liver mild splenomegaly. No acute changes within the abdomen pelvis ASSESSMENT: 1. Chronic pancreatitis possibly due to pancreatic divisum 2. History of cholecystectomy 3. Prior history of EtOH use. Last alcoholic beverage 2018 PLAN: - Continue clear liquid diet - Continue IV fluids - Continue pain management - Continue supportive care - No surgical intervention planned Physician Mild Disabilities Teacher note has been reviewed by physician. Signing provider agrees with the documented findings, assessment, and plan of care. Past Medical History Past Medical History: Dialysis, Hypertension, Liver Disease, Pneumonia, Renal Disease Additional Past Medical History / Comment(s): ETOH abuse last drink 03/06/2019, alcoholic hepatitis, 02/05/17 serology lab +for hepatitis C but pt unawarehas antibodies, B12 deficiency, hx of IVDA-heroin but none for almost 9. yrs, 03-14-2019 last dialysis History of Any Multi-Drug Resistant Organisms: C-DIFF Year Discovered:: 2019 MDRO Source:: stool Past Surgical History: Cholecystectomy Additional Past Surgical History / Comment(s): tracheotomy, PEG tube placement, stent in gall bladder and removed , L arm fistula Past Anesthesia/Blood Transfusion Reactions: No Reported Reaction Past Psychological History: ADD/ADHD Additional Psychological History / Comment(s): Pt resides with his [facility] Smoking Status: Vaper Past Alcohol Use History: None Reported Additional Past Alcohol Use History / Comment(s): Pt started smoking in 1998 Past Drug Use History: None Reported Additional Drug Use History / Comment(s): CLEAN FROM HEROIN 2015 - Past Family History Father Family Medical History: No Reported History Additional Family Medical History / Comment(s): Father is a heroin addict clean 2-1/2 years now. Mother Family Medical History: Diabetes Mellitus, Hypertension Medications and Allergies Home Medications Medication Instructions Recorded Confirmed Type Dextroamphetamine/Amphetamine 30 mg PO BID 02/17/24 11/16/24 History [Adderall] Omeprazole 40 mg PO DAILY 02/17/24 11/16/24 History Tiotropium Br/Olodaterol HCl 2 puff INHALATION RT-DAILY 02/17/24 11/16/24 History [Stiolto Respimat Inhaler (60)] amLODIPine [Norvasc] 5 mg PO DAILY 90 Days #90 tab 02/23/24 11/16/24 Rx QUEtiapine [SEROquel] 50 mg PO HS 11/16/24 11/16/24 History Allergies Allergy/AdvReac Type Severity Reaction Status Date / Time No Known Allergies Allergy Verified 11/16/24 20:32 Surgical - Exam Vital Signs Temp Pulse Resp BP Pulse Ox 98.2 F 84 17 143/93 99 11/16/24 14:14 11/16/24 14:14 11/16/24 14:14 11/16/24 14:14 11/16/24 14:14 Results - Labs 11/17/24 05:45 11/17/24 05:45 Abnormal Lab Results - Last 24 Hours (Table) 11/16/24 11/16/24 11/17/24 Range/Units 15:13 15:13 05:45 RBC 5.69 H (4.40-5.60) 10*6/uL Hct 50.8 H 51.0 H (39.6-50.0) % Chloride 115 H (98-107) mmol/L Carbon Dioxide 16 L (22-30) mmol/L BUN 28 H (9-20) mg/dL Creatinine 1.58 H (0.66-1.25) mg/dL Glucose (74-99) mg/dL Lipase 636 H (23-300) U/L 11/17/24 Range/Units 05:45 RBC (4.40-5.60) 10*6/uL Hct (39.6-50.0) % Chloride (98-107) mmol/L Carbon Dioxide (22-30) mmol/L BUN (9-20) mg/dL Creatinine 1.49 H (0.66-1.25) mg/dL Glucose 66 L (74-99) mg/dL Lipase 737 H (23-300) U/L Diabetes panel 11/16/24 11/17/24 Range/Units 15:13 05:45 Sodium 139 137 (137-145) mmol/L Potassium 5.1 4.4 (3.5-5.1) mmol/L Chloride 115 H 107 (98-107) mmol/L Carbon Dioxide 16 L 23 (22-30) mmol/L BUN 28 H 20 (9-20) mg/dL Creatinine 1.58 H 1.49 H (0.66-1.25) mg/dL Glucose 88 66 L (74-99) mg/dL Calcium 9.8 9.4 (8.4-10.2) mg/dL AST 34 45 (17-59) U/L ALT 28 35 (4-49) U/L Alkaline Phosphatase 81 77 (38-126) U/L Total Protein 6.8 6.5 (6.3-8.2) g/dL Albumin 4.2 4.0 (3.5-5.0) g/dL Calcium panel 11/16/24 11/17/24 Range/Units 15:13 05:45 Calcium 9.8 9.4 (8.4-10.2) mg/dL Albumin 4.2 4.0 (3.5-5.0) g/dL Pituitary panel 11/16/24 11/17/24 Range/Units 15:13 05:45 Sodium 139 137 (137-145) mmol/L Potassium 5.1 4.4 (3.5-5.1) mmol/L Chloride 115 H 107 (98-107) mmol/L Carbon Dioxide 16 L 23 (22-30) mmol/L BUN 28 H 20 (9-20) mg/dL Creatinine 1.58 H 1.49 H (0.66-1.25) mg/dL Glucose 88 66 L (74-99) mg/dL Calcium 9.8 9.4 (8.4-10.2) mg/dL Adrenal panel 11/16/24 11/17/24 Range/Units 15:13 05:45 Sodium 139 137 (137-145) mmol/L Potassium 5.1 4.4 (3.5-5.1) mmol/L Chloride 115 H 107 (98-107) mmol/L Carbon Dioxide 16 L 23 (22-30) mmol/L BUN 28 H 20 (9-20) mg/dL Creatinine 1.58 H 1.49 H (0.66-1.25) mg/dL Glucose 88 66 L (74-99) mg/dL Calcium 9.8 9.4 (8.4-10.2) mg/dL Total Bilirubin 0.8 0.8 (0.2-1.3) mg/dL AST 34 45 (17-59) U/L ALT 28 35 (4-49) U/L Alkaline Phosphatase 81 77 (38-126) U/L Total Protein 6.8 6.5 (6.3-8.2) g/dL Albumin 4.2 4.0 (3.5-5.0) g/dL
[2024-11-17] MEDS: hydrALAZINE HCL 20 MG/ML 1 ML VIAL IVP PRN (17:24)
[2024-11-17] MEDS: LOSARTAN-HCTZ 50-12.5 MG 1 EACH TAB PO SCH (23:53)
--- NOTE | 2024-11-18 01:00 | PN ---
PROGRESS NOTE SUBJECTIVE: Admitted with pancreatitis, acute and chronic abdominal pain. OBJECTIVE: VITAL SIGNS: Stable. Afebrile. CARDIOVASCULAR: S1, S2. LUNGS: Clear. GI: Soft. Hematology: Negative Homans. ASSESSMENT AND PLAN: Acute on chronic pancreatitis, abdominal pain, asthma, chronic obstructive pulmonary disease, chronic renal disease. Prognosis guarded. Continue breathing treatments, p.o., clear liquid diet. Pain control. Prognosis guarded. Anxiety medicine, hypertension acceleration and hypertension medications. Prognosis guarded. MMODL / IJN: [id number] /
[2024-11-18] MEDS: NICOTINE 14MG/24HR PATCH TRANSDERM SCH (09:05)
--- NOTE | 2024-11-18 10:15 | P.PN ---
Subjective Progress Note Date: 11/18/24 Patient feels better. He wants to eat. On exam vital signs appear stable. Abdomen is soft. We will advance diet. Objective - Vital Signs Vital signs: Vital Signs Temp 97.8 F 11/18/24 07:03 Pulse 74 11/18/24 07:03 Resp 17 11/18/24 07:03 BP 154/85 11/18/24 07:03 Pulse Ox 99 11/18/24 07:03 FiO2 Intake & Output 11/17/24 11/18/24 11/18/24 18:59 06:59 18:59 Intake Total 1000 Output Total 0 Balance 1000 Intake: Oral 1000 Output: Urine 0 Other: Voiding Method Toilet - Labs CBC & Chem 7: 11/17/24 05:45 11/17/24 05:45
[2024-11-18] MEDS: LORazepam 1 MG/0.5 ML VIAL IV PRN (18:35)
--- NOTE | 2024-11-19 10:05 | P.PN ---
Subjective Progress Note Date: 11/19/24 Patient has complaints of abdominal pain. On exam vital signs are stable. Abdomen soft. Resolving chronic pancreatitis. Patient will be observed. Objective - Vital Signs Vital signs: Vital Signs Temp 98.1 F 11/19/24 06:51 Pulse 94 11/19/24 09:16 Resp 18 11/19/24 06:51 BP 122/80 11/19/24 06:51 Pulse Ox 97 11/19/24 06:51 FiO2 Intake & Output 11/18/24 11/19/24 11/19/24 18:59 06:59 18:59 Other: # Voids 3 3 2 - Labs CBC & Chem 7: 11/17/24 05:45 11/17/24 05:45 Labs: Abnormal Lab Results - Last 24 Hours (Table) 11/18/24 Range/Units 14:13 Lipase 368 H (23-300) U/L
--- NOTE | 2024-11-19 20:17 | PN ---
PROGRESS NOTE SUBJECTIVE: Admitted with pancreatitis, acute on chronic abdominal pain. He is requesting increase in pain medicine. He is possibly going to go home tomorrow. His lipase is down to 363. OBJECTIVE: CARDIOVASCULAR: S1, S2. LUNGS: Clear. GI: Soft. Mild diffuse tenderness. HEMATOLOGY: Negative Homans. ASSESSMENT AND PLAN: Acute on chronic pancreatitis, has chronic obstructive pulmonary disease, acute on chronic cirrhosis with a history of multiorgan failure about 5 years ago. Continue current treatment. Prognosis guarded. Check lipase in the morning. Advance diet to regular. Home in the morning. MMODL / IJN: [id number] /
[2024-11-20 08:40] VITALS: BP 146/90; RESP 17; TEMP 97.8
--- NOTE | 2024-11-20 09:02 | P.PN ---
Subjective Progress Note Date: 11/20/24 Patient states he had abdominal pain last night. However this morning he is pain is improved. On exam vital signs are stable. Abdomen soft. History of chronic pancreatitis. No surgical mention is planned. He can be discharged home per the medical service. Objective - Vital Signs Vital signs: Vital Signs Temp 97.8 F 11/20/24 07:00 Pulse 100 11/20/24 07:00 Resp 17 11/20/24 07:00 BP 146/90 11/20/24 07:00 Pulse Ox 100 11/20/24 07:00 FiO2 Intake & Output 11/19/24 11/20/24 11/20/24 18:59 06:59 18:59 Intake Total 1659 175 Balance 1659 175 Intake: Oral 1659 175 Other: # Voids 2 - Labs CBC & Chem 7: 11/17/24 05:45 11/17/24 05:45
[2024-11-20 09:20] VITALS: PULSE 72
== END 2024-11-20 14:49 | disposition home or self-care (01) ==
LOC: EC 14:13 → 1SOBS 17:28 → 4SSUR 11-17 16:44
PROVIDERS: ADMIT Family Medicine; ATTEND Family Medicine
DX: K86.1 Other chronic pancreatitis (principal); I12.9 Hypertensive chronic kidney disease with stage 1 through stage 4 chronic kidney disease, or unspecified chronic kidney disease; N18.9 Chronic kidney disease, unspecified; J44.89 Other specified chronic obstructive pulmonary disease; F17.290 Nicotine dependence, other tobacco product, uncomplicated; Z90.49 Acquired absence of other specified parts of digestive tract; Z79.899 Other long term (current) drug therapy
CPT/HCPCS: 96376 ×5; 96374 ×2; 96375 ×2; 96361; 99285; 36415; 94640 ×3; 80053 ×2; 83690 ×3; 85025 ×2; 74177; G0378 ×6; S4990 ×3; J2060 ×4; J0360; J2405 ×5; J1171 ×5; Q9967

== ENCOUNTER 2024-12-24 01:32 | Inpatient (IN) | payer MEDICAID, OTHER ==
[2024-12-24] MEDS: HYDROmorphone 1 MG/ML 1 ML SYRINGE IVP STA (02:08)
[2024-12-24] MEDS: LACTATED RINGERS 1,000 ML IV SCH (02:08)
[2024-12-24] MEDS: ONDANSETRON 4 MG/2 ML VIAL IVP STA (02:09)
[2024-12-24 03:01] LABS: Basophils # (A) 0.04 10*3/uL (0.00-0.10); Basophils % (A) 0.7 %; Eosinophils # (A) 0.17 10*3/uL (0.04-0.35); Eosinophils % (A) 3.0 %; HCT 41.6 % (39.6-50.0); HGB 13.8 g/dL (13.0-17.0); Lymphocytes # (A) 1.15 10*3/uL (0.90-5.00); Lymphocytes % (A) 20.3 %; MCH 29.9 pg (27.0-32.0); MCHC 33.2 g/dL (32.0-37.0); MCV 90.0 fL (80.0-97.0); Monocytes # (A) 0.37 10*3/uL (0.20-1.00); Monocytes % (A) 6.5 %; Neutrophils # (A) 3.90 10*3/uL (1.80-7.70); Neutrophils % (A) 69.0 %; Platelet Count 154 10*3/uL (140-440); RBC 4.62 10*6/uL (4.40-5.60); RDW 13.8 % (11.5-14.5); WBC 5.66 10*3/uL (4.50-10.00)
[2024-12-24 03:22] LABS: ALT 29 U/L (4-49); AST 43 U/L (17-59); African American GFR (CKD) 49 (>60 ml/min/1.73 sqM); Albumin 3.6 g/dL (3.5-5.0); Alkaline Phosphatase 106 U/L (38-126); Amylase 71 U/L (30-110); Anion Gap 8 mmol/L; Blood Urea Nitrogen 29 mg/dL (9-20); Calcium 9.0 mg/dL (8.4-10.2); Carbon Dioxide 23 mmol/L (22-30); Chloride 111 mmol/L (98-107); Glucose 103 mg/dL (74-99); Lipase 262 U/L (23-300); Non-African American GFR(CKD) 42 (>60 ml/min/1.73 sqM); Potassium 4.6 mmol/L (3.5-5.1); Sodium 142 mmol/L (137-145); Total Protein 5.9 g/dL (6.3-8.2)
--- NOTE | 2024-12-24 03:23 | ED ---
Abdominal Pain HPI - General Source: patient Mode of arrival: ambulatory <Neeraj Lainez - Last Filed: 12/24/24 04:10> <Yaniv Beth - Last Filed: 12/24/24 12:41> - General Chief Complaint: Abdominal Pain Stated Complaint: Abd Pain Time Seen by Provider: 12/24/24 01:38 - History of Present Illness Initial Comments: 39-year-old male presenting with chief complaint of abdominal pain. This is diffuse abdominal pain worse in the epigastric region. Has been ongoing for about 5 days. He has history of pancreatitis, previous history of alcoholism. He admits to nausea and vomiting. He states that the pain is so bad that he is having hallucinations. No suicidal or homicidal ideation. States this pain feels identical to previous flareups of his pancreatitis. No known fever. No chest pain or difficulty breathing. No urinary symptoms. Admits to diarrhea. (Neeraj Lainez) - Related Data Home Medications Medication Instructions Recorded Confirmed Dextroamphetamine/Amphetamine 30 mg PO BID 02/17/24 11/16/24 [Adderall] Omeprazole 40 mg PO DAILY 02/17/24 11/16/24 Tiotropium Br/Olodaterol HCl 2 puff INHALATION RT-DAILY 02/17/24 11/16/24 [Stiolto Respimat Inhaler (60)] QUEtiapine [SEROquel] 50 mg PO HS 11/16/24 11/16/24 Previous Rx's Medication Instructions Recorded amLODIPine [Norvasc] 5 mg PO DAILY 90 Days #90 tab 02/23/24 Losartan-Hctz 50-12.5 mg [Hyzaar 1 each PO DAILY 30 Days #30 tab 11/20/24 50-12.5] Nicotine 14Mg/24Hr Patch [Habitrol] 1 patch TRANSDERM DAILY 30 Days 11/20/24 #30 patch Allergies Allergy/AdvReac Type Severity Reaction Status Date / Time No Known Allergies Allergy Verified 12/24/24 01:36 Review of Systems ROS Other: All systems not noted in ROS Statement are negative. <Neeraj Lainez - Last Filed: 12/24/24 04:10> ROS Other: All systems not noted in ROS Statement are negative. <Yaniv Beth - Last Filed: 12/24/24 12:41> ROS Statement: Those systems with pertinent positive or pertinent negative responses have been documented in the HPI. Past Medical History Past Medical History: Dialysis, Hypertension, Liver Disease, Pneumonia, Renal Disease Additional Past Medical History / Comment(s): ETOH abuse last drink 03/06/2019, alcoholic hepatitis, 02/05/17 serology lab +for hepatitis C but pt unawarehas antibodies, B12 deficiency, hx of IVDA-heroin but none for almost 9. yrs, 03-14-2020 last dialysis History of Any Multi-Drug Resistant Organisms: C-DIFF Date of last positivie culture/infection: 2018 MDRO Source:: stool Past Surgical History: Cholecystectomy Additional Past Surgical History / Comment(s): tracheotomy, PEG tube placement, stent in gall bladder and removed , L arm fistula Past Anesthesia/Blood Transfusion Reactions: No Reported Reaction Past Psychological History: ADD/ADHD Smoking Status: Vaper Past Alcohol Use History: None Reported Past Drug Use History: Marijuana - Past Family History Father Family Medical History: No Reported History Additional Family Medical History / Comment(s): Father is a heroin addict clean 2-1/2 years now. Mother Family Medical History: Diabetes Mellitus, Hypertension <Neeraj Lainez - Last Filed: 12/24/24 04:10> General Exam Limitations: no limitations General appearance: alert, in no apparent distress Head exam: Present: atraumatic, normocephalic, normal inspection Eye exam: Present: normal appearance, EOMI Neck exam: Present: normal inspection. Absent: meningismus Respiratory exam: Present: normal lung sounds bilaterally. Absent: respiratory distress, wheezes, rales, rhonchi, stridor Cardiovascular Exam: Present: regular rate, normal rhythm, normal heart sounds. Absent: systolic murmur, diastolic murmur, rubs, gallop, clicks GI/Abdominal exam: Present: soft, tenderness, guarding. Absent: distended, rebound, rigid Neurological exam: Present: alert, oriented X3 Psychiatric exam: Present: normal affect, normal mood Skin exam: Present: warm, dry, normal color <Neeraj Lainez - Last Filed: 12/24/24 04:10> Course Vital Signs 12/24/24 12/24/24 12/24/24 01:34 04:40 08:31 Temperature 98.1 F 98.0 F Pulse Rate 128 H 84 85 Respiratory 19 17 18 Rate Blood Pressure 148/95 147/100 177/108 O2 Sat by Pulse 98 97 98 Oximetry Medical Decision Making - Lab Data Result diagrams: 12/24/24 01:55 12/24/24 01:55 <Neeraj Lainez - Last Filed: 12/24/24 04:10> - Lab Data Result diagrams: 12/24/24 01:55 12/24/24 01:55 <Yaniv Beth - Last Filed: 12/24/24 12:41> - Medical Decision Making 39-year-old male here with abdominal pain. Feels identical to previous episodes of pancreatitis. Patient also states that he is having hallucinations. States that he is seeing shapes and colors that are not there and hearing voices. No suicidal or homicidal ideation. No leukocytosis or anemia. Amylase and lipase are WNL. Urine negative for infection. BUN and creatinine seem to be in line with the patient's baseline. He is still complaining of hallucinations. He is requesting psychiatric evaluation. He is medically cleared and will be evaluated by EPS. Patient signed out to my attending Dr. Bach for further m anagement and disposition Was pt. sent in by a medical professional or institution (, PA, TELETYPESETTER OPERATOR, urgent care, hospital, or alf...) When possible be specific @ -[No] Did you speak to anyone other than the patient for history (EMS, parent, family, police, friend...)? What history was obtained from this source @ -[No] Did you review nursing and triage notes (agree or disagree)? Why? @ -[I reviewed and agree with nursing and triage notes] Were old charts reviewed (outside hosp., previous admission, EMS record, old EKG, old radiological studies, urgent care reports/EKG's, alf records)? Report findings @ -[No old charts were reviewed] Differential Diagnosis (chest pain, altered mental status, abdominal pain women, abdominal pain men, vaginal bleeding, weakness, fever, dyspnea, syncope, headache, dizziness, GI bleed, back pain, seizure, CVA, palpatations, mental health, musculoskeletal)? @ -[facility] Differential Abdominal Pain Men: Appendicitis, cholecystitis, diverticulosis, ischemic bowel, pancreatitis, hepatitis, UTI, gastroenteritis, AAA, incarcerated hernia, bowel obstruction, constipation, inflammatory bowel, hepatitis, peptic ulcer disease, splenic infarction, perforated viscus, testicular torsion... This is not meant to be an all-inclusive list EKG interpreted by me (3pts min.). @ -[As above] X-rays interpreted by me (1pt min.). @ -[None done] CT interpreted by me (1pt min.). @ -[None done] U/S interpreted by me (1pt. min.). @ -[None done] What testing was considered but not performed or refused? (CT, X-rays, U/S, labs)? Why? @ -[None] What meds were considered but not given or refused? Why? @ -[None] Did you discuss the management of the patient with other professionals (professionals i.e. DrSophia, PA, TELETYPESETTER OPERATOR, lab, RT, psych nurse, social media content specialist, glass presser, teacher, chief clinical officer, case planner)? Give summary @ -[No] Was smoking cessation discussed for >3mins.? @ -[No] Was critical care preformed (if so, how long)? @ -[No] Were there social determinants of health that impacted care today? How? (Homelessness, low income, unemployed, alcoholism, drug addiction, transportation, low edu. Level, literacy, decrease access to med. care, fdc, r ehab)? @ -[No] Was there de-escalation of care discussed even if they declined (Discuss DNR or withdrawal of care, Hospice)? DNR status @ -[No] What co-morbidities impacted this encounter? (DM, HTN, Smoking, COPD, CAD, Cancer, CVA, ARF, Chemo, Hep., AIDS, mental health diagnosis, sleep apnea, morb id obesity)? @ -[None] Was patient admitted / discharged? Hospital course, mention meds given and r oute, prescriptions, significant lab abnormalities, going to OR and other pertinent info. @ -See above Undiagnosed new problem with uncertain prognosis? @ -[No] Drug Therapy requiring intensive monitoring for toxicity (Heparin, Nitro, Insulin, Cardizem)? @ -[No] Were any procedures done? @ -[No] Diagnosis/symptom? @ -[default] Acute, or Chronic, or Acute on Chronic? @ -[default] Uncomplicated (without systemic symptoms) or Complicated (systemic symptoms)? @ -[default] Side effects of treatment? @ -[No] Exacerbation, Progression, or Severe Exacerbation? @ -[No] Poses a threat to life or bodily function? How? (Chest pain, [place], [place], pneumonia, PE, COPD, DKA, ARF, appy, cholecystitis, CVA, Diverticulitis, Homicidal, Suicidal, threat to staff... and all critical care pts) @ -[No] (Neeraj Lainez) Patient seen by mental health services with plans for psychiatric admission I did discuss this with the psychiatric nurse who also requested patient receive his blood pressure medication and I did order his losartan hydrochlorothiazide Diagnosis: Hallucinations Acuity: Acute (Yaniv Beth) - Lab Data Lab Results 12/24/24 12/24/24 12/24/24 Range/Units 01:55 01:55 01:55 WBC 5.66 (4.50-10.00) 10*3/uL RBC 4.62 (4.40-5.60) 10*6/uL Hgb 13.8 (13.0-17.0) g/dL Hct 41.6 (39.6-50.0) % MCV 90.0 (80.0-97.0) fL MCH 29.9 (27.0-32.0) pg MCHC 33.2 (32.0-37.0) g/dL Plt Count 154 (140-440) 10*3/uL MPV 10.7 (9.5-12.2) fL Immature Gran % (Auto) 0.5 % Neutrophils % 69.0 % Lymphocytes % 20.3 % Monocytes % 6.5 % Eosinophils % 3.0 % Basophils % 0.7 % Immature Gran # 0.03 (0.00-0.04) 10*3/uL Neutrophils # 3.90 (1.80-7.70) 10*3/uL Lymphocytes # 1.15 (0.90-5.00) 10*3/uL Monocytes # 0.37 (0.20-1.00) 10*3/uL Eosinophils # 0.17 (0.04-0.35) 10*3/uL Basophils # 0.04 (0.00-0.10) 10*3/uL Sodium 142 (137-145) mmol/L Potassium 4.6 (3.5-5.1) mmol/L Chloride 111 H (98-107) mmol/L Carbon Dioxide 23 (22-30) mmol/L Anion Gap 8 mmol/L BUN 29 H (9-20) mg/dL Creatinine 1.95 H (0.66-1.25) mg/dL Est GFR (CKD-EPI)AfAm 49 (>60 ml/min/1.73 sqM) Est GFR (CKD-EPI)NonAf 42 (>60 ml/min/1.73 sqM) Glucose 103 H (74-99) mg/dL Plasma Lactic Acid Niko 2.0 (0.7-2.0) mmol/L Calcium 9.0 (8.4-10.2) mg/dL Total Bilirubin 0.5 (0.2-1.3) mg/dL AST 43 (17-59) U/L ALT 29 (4-49) U/L Alkaline Phosphatase 106 (38-126) U/L Total Protein 5.9 L (6.3-8.2) g/dL Albumin 3.6 (3.5-5.0) g/dL Amylase 71 (30-110) U/L Lipase 262 (23-300) U/L Urine Color Urine Appearance (Clear) Urine pH (5.0-8.0) Ur Specific [place] (1.001-1.035) Urine Protein (Negative) Urine Glucose (UA) (Negative) Urine Ketones (Negative) Urine Blood (Negative) Urine Nitrite (Negative) Urine Bilirubin (Negative) Urine Urobilinogen (<2.0) mg/dL Ur Leukocyte Esterase (Negative) Urine RBC (0-5) /hpf Urine WBC (0-5) /hpf Urine Opiates Screen (NotDetected) Ur Oxycodone Screen (NotDetected) Urine Methadone Screen (NotDetected) Ur Barbiturates Screen (NotDetected) U Tricyclic Antidepress (NotDetected) Ur Phencyclidine Scrn (NotDetected) Ur Amphetamines Screen (NotDetected) U Methamphetamines Scrn (NotDetected) U Benzodiazepines Scrn (NotDetected) Urine Cocaine Screen (NotDetected) U Marijuana (THC) Screen (NotDetected) 12/24/24 Range/Units 03:24 WBC (4.50-10.00) 10*3/uL RBC (4.40-5.60) 10*6/uL Hgb (13.0-17.0) g/dL Hct (39.6-50.0) % MCV (80.0-97.0) fL MCH (27.0-32.0) pg MCHC (32.0-37.0) g/dL Plt Count (140-440) 10*3/uL MPV (9.5-12.2) fL Immature Gran % (Auto) % Neutrophils % % Lymphocytes % % Monocytes % % Eosinophils % % Basophils % % Immature Gran # (0.00-0.04) 10*3/uL Neutrophils # (1.80-7.70) 10*3/uL Lymphocytes # (0.90-5.00) 10*3/uL Monocytes # (0.20-1.00) 10*3/uL Eosinophils # (0.04-0.35) 10*3/uL Basophils # (0.00-0.10) 10*3/uL Sodium (137-145) mmol/L Potassium (3.5-5.1) mmol/L Chloride (98-107) mmol/L Carbon Dioxide (22-30) mmol/L Anion Gap mmol/L BUN (9-20) mg/dL Creatinine (0.66-1.25) mg/dL Est GFR (CKD-EPI)AfAm (>60 ml/min/1.73 sqM) Est GFR (CKD-EPI)NonAf (>60 ml/min/1.73 sqM) Glucose (74-99) mg/dL Plasma Lactic Acid Niko (0.7-2.0) mmol/L Calcium (8.4-10.2) mg/dL Total Bilirubin (0.2-1.3) mg/dL AST (17-59) U/L ALT (4-49) U/L Alkaline Phosphatase (38-126) U/L Total Protein (6.3-8.2) g/dL Albumin (3.5-5.0) g/dL Amylase (30-110) U/L Lipase (23-300) U/L Urine Color Colorless Urine Appearance Clear (Clear) Urine pH 6.5 (5.0-8.0) Ur Specific [place] 1.014 (1.001-1.035) Urine Protein 1+ H (Negative) Urine Glucose (UA) Negative (Negative) Urine Ketones Negative (Negative) Urine Blood Negative (Negative) Urine Nitrite Negative (Negative) Urine Bilirubin Negative (Negative) Urine Urobilinogen <2.0 (<2.0) mg/dL Ur Leukocyte Esterase Negative (Negative) Urine RBC 1 (0-5) /hpf Urine WBC <1 (0-5) /hpf Urine Opiates Screen Not Detected (NotDetected) Ur Oxycodone Screen Not Detected (NotDetected) Urine Methadone Screen Not Detected (NotDetected) Ur Barbiturates Screen Not Detected (NotDetected) U Tricyclic Antidepress Detected H (NotDetected) Ur Phencyclidine Scrn Not Detected (NotDetected) Ur Amphetamines Screen Detected H (NotDetected) U Methamphetamines Scrn Not Detected (NotDetected) U Benzodiazepines Scrn Detected H (NotDetected) Urine Cocaine Screen Not Detected (NotDetected) U Marijuana (THC) Screen Detected H (NotDetected) Disposition <Neeraj Lainez - Last Filed: 12/24/24 04:10> Is patient prescribed a controlled substance at d/c from ED?: No Time of Disposition: 12:41 <Yaniv Beth - Last Filed: 12/24/24 12:41> Clinical Impression: Hallucinations Disposition: TRANSFER TO PSYCH HOSP/UNIT Referrals: Maksim Schultz MD [Primary Care Provider] - 1-2 days
[2024-12-24 03:59] LABS: Bilirubin,Urine Negative (Negative); Blood,Urine Negative (Negative); Color,Urine Colorless; Glucose,Urine (UA) Negative (Negative); Ketones,Urine Negative (Negative); Leukocyte Esterase,Urine Negative (Negative); Nitrite,Urine Negative (Negative); PH, Urine 6.5 (5.0-8.0); Protein,Urine 1+ (Negative); RBC,Urine 1 /hpf (0-5); Specific Gravity,Urine 1.014 (1.001-1.035); Urobilinogen,Urine <2.0 mg/dL (<2.0); WBC,Urine <1 /hpf (0-5)
[2024-12-24 04:15] LABS: Barbiturate Screen,Urine Not Detected (NotDetected); Benzodiazepines Screen,Urine Detected (NotDetected); Opiate Screen,Urine Not Detected (NotDetected); Oxycodone Screen, Urine Not Detected (NotDetected); Phencyclidine Screen,Urine Not Detected (NotDetected); Tricyclic Antidepressant,Urine Detected (NotDetected); Urn Cannabinoid Scrn Detected (NotDetected)
[2024-12-24] MEDS: KETOROLAC 15 MG/ML 1 ML VIAL IVP STA (04:44)
[2024-12-24 13:40] LABS: RSV Not Detected (Not Detectd)
[2024-12-24] MEDS: LOSARTAN-HCTZ 50-12.5 MG 1 EACH TAB PO SCH (13:48)
[2024-12-24] MEDS ORDERED: ACETAMINOPHEN TAB 325 MG TAB PO PRN (14:25)
[2024-12-24] MEDS ORDERED: MAGNESIUM HYDROXIDE 2,400 MG/30 ML CUP PO PRN (14:25)
[2024-12-24] MEDS ORDERED: IBUPROFEN 600 MG TAB PO PRN (14:25)
[2024-12-24] MEDS ORDERED: MAG HYDROX/AL HYDROX/SIMETH 355 ML BOTTLE PO PRN (14:25)
[2024-12-24] MEDS ORDERED: HALOPERIDOL LACTATE 5 MG/ML 1 ML VIAL IM PRN (14:25)
[2024-12-24] MEDS: LORazepam 1 MG TAB PO PRN (18:20)
[2024-12-25] MEDS: NICOTINE 14MG/24HR PATCH TRANSDERM SCH (08:14)
--- NOTE | 2024-12-25 09:59 | CONS ---
CONSULTATION HISTORY OF PRESENT ILLNESS: A 39-year-old white male in the [facility] for psychosis, came in with abdominal pain in epigastric area, history of pancreatitis. He is having some hallucinations. He was sent to the [facility] for workup. MEDICATIONS: Home medications reviewed. ALLERGIES: Negative. FAMILY HISTORY: father with diabetes mellitus, hypertension . PHYSICAL EXAMINATION: HEAD: Normocephalic, atraumatic. LUNGS: Clear. CARDIOVASCULAR: S1, S2. ABDOMEN: Soft. NEUROLOGIC: Alert and oriented x3. VITAL SIGNS: Stable LABS: Reviewed. BUN is 29, creatinine 1.95. ASSESSMENT: Hypertension, medications have been ordered. Dehydration, treated with IV fluids. Prognosis guarded. Ambulate as tolerated. Orthostatic blood pressure checks. MMODL / IJN: [id number] /
[2024-12-25] MEDS: QUEtiapine 25 MG TAB PO SCH (16:03)
--- NOTE | 2024-12-25 16:14 | P.HP ---
Psychiatric H&P - . H&P Date: 12/25/24 History & Physical: IDENTIFYING DATA: Patient is a 39 year old single male who lives with his grandmother. HPI: Patient presented to the hospital early yesterday morning. Per EPS note, "Patient presented to ER with chief complaint of abdominal pain, EPS consulted once patient was medically clear r/t hallucinations. Patient assessed in ER13 from [id number]. Patient denies any psychiatric history but verbalizes opening services with [facility] recently and had an appointment with the dependency case manager in September. OASIS confirmed patient seen on 10/04/2024 with diagnosis unspecified anxiety disorder. Patient also diagnosed with alcohol use disorder and opioid use di sorder, both in remission. Patient verbalizes presenting problem of auditory and visual hallucinations. Patient states that he did not mention his problem to [facility] or his PCP because he has been attempting to "live through it". Patient verbalizes auditory hallucinations describing them as loud conversations around him, people talking but not being able to make out what they are saying. Patient states that the voices have worsened recently and so bad that he is struggling to do day to day activities and also struggling caring for his basic needs such as eating, sleeping, or maintaining his hygiene. Patient states visual hallucinations and describes that he feels like everything is moving around and taking new shapes. Patient states that these symptoms have been ongoing for about a year but started off intermittent and did not interfere with his life, but have recently worsened and does not know how to deal or cope with these symptoms. Patient verbalizes that he struggles for sleeping with both difficulty falling and staying asleep and notes staying awake for days at a time. Patient describes difficulty with appetite at this time. Patient describes feeling overwhelmed with anxiety, restlessness, and being more and more forgetful. Patient states that he is sober from alcohol since 2019 and sober from narcotics since 2016. Patient UDS+ tricyclic antidepressants, amphetamines, benzos, and marijuana. Patient is prescribed adderall, seroquel, valium, and losartan/hctz. Verbalizes maintaining compliance with home medications." He reports the voices are "really bad right now", reports hearing really loud pitch, hears people talking. He reports the voices started over a year ago. He appears distressed by the voices. He admits to drinking 2-4 RedBulls per day plus taking Adderall 30 mg BID. He does not appear to have paranoid delusions. Patient denies any flight of ideas racing thoughts and increased in goal directed behavior. Patient denies any suicidal or homicidal ideation, intent or plan. He reports difficulty falling and staying asleep and takes double the dose of Seroquel 50 mg tabs, so he takes 100 mg nightly in order to sleep. He received Haldol 5 mg po x 1 and Ativan 1mg po x1 last night and again this morning for hallucinations and reports the Haldol helped some. 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 He reports he smokes a "little weed here and there." UDS was positive for THC, amphetamines, benzodiazepines. He denies tobacco use. He reports he is prescribed Adderall for his ADHD and received benzodiazepines in the ER. He reports he has been taking Adderall since he was 9 years old. Reports he currently takes Adderall 30 mg BID. He states he has not done hallucinogens since high school. He thinks he took too much of his Adderall, thinks he took three 30 mg pills (90 mgs) at once over a year ago and has been hearing voices since then. He reports his visual perception is distorted, wavy. PAST PSYCHIATRIC HISTORY: Patient has a history of alcohol use disorder and opioid use disorder. Patient reports history of being prescribed Seroquel for sleep and Adderall for ADHD. Patient denies any previous psychiatric hospitalizations. Psychiatric outpatient follow-up: [facility] Patient denies any history of suicide attempts in the past. PMH: He reports a history of medically-induced coma in 2016 due to "liver failure, kidney failure, respiratory failure and gall bladder failure". He has CKD. history of Hep C. He denies history of seizures, MVA or loss of consciousness. History of fall in 11/2023- Head CT was negative for any acute intracranial processes. ALLERGIES: as per EMR CHEMICAL DEPENDENCY HISTORY: as per HPI FAMILY PSYCHIATRIC/SUBSTANCE USE HISTORY: Father - heroin and alcoholism in recovery SOCIAL HISTORY: Patient was born and raised in [place], [place]. 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 He also receives SSI for CKD. Lives with his grandmother. Has been to custodial. MENTAL STATUS EXAM: General Appearance: Patient appears to be stated age, has suboptimal hygiene, dressed in hospital gown, barefoot Behavior: Patient is seated without any agitated behavior but often fidgets. Speech: Patient's speech is fluent and non-pressured, loud with irritable edge. Mood/Affect: Patient reports their mood is irritated, affect is congruent and co nstricted. Suicidality/Homicidality: Patient denies having any homicidal ideation intent or plan. Denies any suicidal ideation, intent or plan. Perceptions: Patient reports visual hallucinations and auditory hallucinations as described in HPI. Though content/process: There is no evidence of any overt delusional thought content and thought process is generally linear and goal-directed. Memory and concentration: AOX3, grossly intact for the purposes of this session. Can spell "WORLD" backwards Judgment and insight: poor STRENGTHS/WEAKNESSES: strength is that patient is resilient. Weakness is that patient has poor judgment and is impulsive. INTELLECT: Average IMPRESSIONS: Unspecified schizophrenia spectrum and other psychotic disorder r/o Substance/Medication Induced Psychotic Disorder (Adderall and Red Bull) r/o Psychotic disorder due to medical condition (questionable prior head injury from coma and falls) Alcohol use disorder, severe, in remission Opioid use disorder, severe, in remission CKD, elevated creatinine Low TSH PLAN: -Patient is admitted under voluntary status to [facility] for stabilization of psychiatric symptoms and safety. Patient has signed adult voluntary form and is placed in patient's chart. -Medications: Will start patient on Seroquel 25 mg QAM and 100 mg QHS for psychosis. Discontinued Ativan PRN for agitation due to CKD and elevated creatinine. -Haldol PRN for agitation/aggression. -Patient was counselled on substance abuse -Patient was informed of the risks, benefits and side effects of the medication and patient verbally consented to taking the medications. -Internal Medicine consult to perform medical evaluation and physical. -NRT - not needed as patient does not use tobacco/nicotine -SW on board for discharge planning. Encourage patient to participate in groups to work on coping skills. Allergies Allergy/AdvReac Type Severity Reaction Status Date / Time No Known Allergies Allergy Verified 12/24/24 12:51 Vital Signs Temp 97.4 F L 12/25/24 08:17 Pulse 122 H 12/25/24 08:17 Resp 18 12/25/24 08:17 BP 128/92 12/25/24 08:17 Pulse Ox 99 12/25/24 08:17 FiO2 Intake & Output 12/24/24 12/25/24 12/25/24 18:59 06:59 18:59 Weight 68.855 kg Laboratory Last Values WBC 5.66 10*3/uL (4.50-10.00) 12/24/24 01:55 RBC 4.62 10*6/uL (4.40-5.60) 12/24/24 01:55 Hgb 13.8 g/dL (13.0-17.0) 12/24/24 01:55 Hct 41.6 % (39.6-50.0) 12/24/24 01:55 MCV 90.0 fL (80.0-97.0) 12/24/24 01:55 MCH 29.9 pg (27.0-32.0) 12/24/24 01:55 MCHC 33.2 g/dL (32.0-37.0) 12/24/24 01:55 Plt Count 154 10*3/uL (140-440) 12/24/24 01:55 MPV 10.7 fL (9.5-12.2) 12/24/24 01:55 Immature Gran % (Auto) 0.5 % 12/24/24 01:55 Neutrophils % 69.0 % 12/24/24 01:55 Lymphocytes % 20.3 % 12/24/24 01:55 Monocytes % 6.5 % 12/24/24 01:55 Eosinophils % 3.0 % 12/24/24 01:55 Basophils % 0.7 % 12/24/24 01:55 Immature Gran # 0.03 10*3/uL (0.00-0.04) 12/24/24 01:55 Neutrophils # 3.90 10*3/uL (1.80-7.70) 12/24/24 01:55 Lymphocytes # 1.15 10*3/uL (0.90-5.00) 12/24/24 01:55 Monocytes # 0.37 10*3/uL (0.20-1.00) 12/24/24 01:55 Eosinophils # 0.17 10*3/uL (0.04-0.35) 12/24/24 01:55 Basophils # 0.04 10*3/uL (0.00-0.10) 12/24/24 01:55 Sodium 142 mmol/L (137-145) 12/24/24 01:55 Potassium 4.6 mmol/L (3.5-5.1) 12/24/24 01:55 Chloride 111 mmol/L (98-107) H 12/24/24 01:55 Carbon Dioxide 23 mmol/L (22-30) 12/24/24 01:55 Anion Gap 8 mmol/L 12/24/24 01:55 BUN 29 mg/dL (9-20) H 12/24/24 01:55 Creatinine 1.95 mg/dL (0.66-1.25) H 12/24/24 01:55 Est GFR (CKD-EPI)AfAm 49 (>60 ml/min/1.73 sqM) 12/24/24 01:55 Est GFR (CKD-EPI)NonAf 42 (>60 ml/min/1.73 sqM) 12/24/24 01:55 Glucose 103 mg/dL (74-99) H 12/24/24 01:55 Plasma Lactic Acid Niko 2.0 mmol/L (0.7-2.0) 12/24/24 01:55 Calcium 9.0 mg/dL (8.4-10.2) 12/24/24 01:55 Total Bilirubin 0.5 mg/dL (0.2-1.3) 12/24/24 01:55 AST 43 U/L (17-59) 12/24/24 01:55 ALT 29 U/L (4-49) 12/24/24 01:55 Alkaline Phosphatase 106 U/L (38-126) 12/24/24 01:55 Total Protein 5.9 g/dL (6.3-8.2) L 12/24/24 01:55 Albumin 3.6 g/dL (3.5-5.0) 12/24/24 01:55 Amylase 71 U/L (30-110) 12/24/24 01:55 Lipase 262 U/L (23-300) 12/24/24 01:55 TSH 0.158 mIU/L (0.465-4.680) L 12/24/24 01:55 Urine Color Colorless 12/24/24 03:24 Urine Appearance Clear (Clear) 12/24/24 03:24 Urine pH 6.5 (5.0-8.0) 12/24/24 03:24 Ur Specific Ione 1.014 (1.001-1.035) 12/24/24 03:24 Urine Protein 1+ (Negative) H 12/24/24 03:24 Urine Glucose (UA) Negative (Negative) 12/24/24 03:24 Urine Ketones Negative (Negative) 12/24/24 03:24 Urine Blood Negative (Negative) 12/24/24 03:24 Urine Nitrite Negative (Negative) 12/24/24 03:24 Urine Bilirubin Negative (Negative) 12/24/24 03:24 Urine Urobilinogen <2.0 mg/dL (<2.0) 12/24/24 03:24 Ur Leukocyte Esterase Negative (Negative) 12/24/24 03:24 Urine RBC 1 /hpf (0-5) 12/24/24 03:24 Urine WBC <1 /hpf (0-5) 12/24/24 03:24 Urine Opiates Screen Not Detected (NotDetected) 12/24/24 03:24 Ur Oxycodone Screen Not Detected (NotDetected) 12/24/24 03:24 Urine Methadone Screen Not Detected (NotDetected) 12/24/24 03:24 Ur Barbiturates Screen Not Detected (NotDetected) 12/24/24 03:24 U Tricyclic Antidepress Detected (NotDetected) H 12/24/24 03:24 Ur Phencyclidine Scrn Not Detected (NotDetected) 12/24/24 03:24 Ur Amphetamines Screen Detected (NotDetected) H 12/24/24 03:24 U Methamphetamines Scrn Not Detected (NotDetected) 12/24/24 03:24 U Benzodiazepines Scrn Detected (NotDetected) H 12/24/24 03:24 Urine Cocaine Screen Not Detected (NotDetected) 12/24/24 03:24 U Marijuana (THC) Screen Detected (NotDetected) H 12/24/24 03:24 Influenza Type A (PCR) Not Detected (Not Detectd) 12/24/24 12:43 Influenza Type B (PCR) Not Detected (Not Detectd) 12/24/24 12:43 RSV (PCR) Not Detected (Not Detectd) 12/24/24 12:43 SARS-CoV-2 (PCR) Not Detected (Not Detectd) 12/24/24 12:43 12/25/24 15:16 12/25/24 15:27 12/25/24 15:33 12/25/24 15:51 12/25/24 15:55 12/25/24 15:58 12/25/24 16:01 12/25/24 16:04
[2024-12-25] MEDS: QUEtiapine 100 MG TAB PO SCH (21:18)
[2024-12-26 03:29] LABS: Cholesterol 156.00 mg/dL (0.00-200.00); HDL Cholesterol 53.00 mg/dL (40.00-60.00); LDL Cholesterol,Calculated 54.8 mg/dL (0.0-131.0); Triglycerides 241.00 mg/dL (0.00-149.00); VLDL Calculation 48.20 mg/dL (5.00-40.00)
--- NOTE | 2024-12-26 13:13 | P.PN ---
Progress Note - Text Progress Note Date: 12/26/24 Interval History: Patient was seen laying in bed and was directable and agreeable to speak with typewriter aligner in the room. He overall expresses no concerns, did receive as needed Haldol for voices which she found helpful. He only reports mild voices at this time. He states he has been sleeping and eating well. He states he has been catching up on sleep specifically. At this time patient denies any suicidal or homicidal ideations, intent or plan. Patient denies any visual hallucinations and denies any paranoia or delusions. Patient denies any side effects from the medications and has been compliant with meds. Mental Status Exam: General Appearance: Patient appears to be stated age is fatigued but directable, and cooperative. Behavior: Patient is calmly laying down without any agitated behavior. Speech: Patient's speech is fluent and nonpressured. Mood/Affect: Mood is improving mildly, affect is congruent and constricted. Suicidality/Homicidality: Patient denies having any suicidal or homicidal ideation intent or plan. Perceptions: Patient denies any visual hallucinations however he does report auditory hallucinations Though content/process: There is no evidence of any delusional thought content and thought process is linear and goal-directed. Memory and concentration: AOX3, grossly intact for the purposes of this session Judgment and insight: Improving mildly Assessment Psychosis, unspecified Rule out substance-induced psychotic disorder Alcohol use disorder, in remission Opioid use disorder, in remission Rule out stimulant use disorder Cannabis use disorder Plan: -Patient continues to meet criteria for inpatient psychiatric admission for symptom stabilization and safety. Patient has signed adult voluntary form and medication consent and was placed in patient's chart. -Medications: Continue Seroquel 25 mg daily and 100 mg at bedtime -When necessary Haldol for agitation/aggression. -Labs: Creatinine was elevated at 1.95, TSH low with repeat CMP ordered for tomorrow morning along with free T4 for thyroid monitoring -SW on board for discharge planning. Encouraged the patient to participate in milieu.
[2024-12-26] MEDS: QUEtiapine 25 MG TAB PO PRN (17:52)
--- NOTE | 2024-12-27 12:07 | P.PN ---
Progress Note - Text Progress Note Date: 12/27/24 Interval History: Patient was seen in bed and was directable and agreeable to speak with promotion writer in the room. He reports lessening in his auditory hallucinations however did receive as needed Haldol twice yesterday and once this morning to which he states is helpful for them. Patient states he prefers to stay on the Seroquel and switch to Haldol however did state that being put into a coma when at higher doses of the Seroquel previously. He states he has been catching up on sleep. Staff did note patient has been eating minimal meals. Patient reports lessening in intensity and his auditory hallucinations. At this time patient denies any suicidal or homicidal ideations, intent or plan. Patient denies any visual hallucinations and denies any paranoia or delusions. Patient denies any side effects from the medications and has been compliant with meds. Mental Status Exam: General Appearance: Patient appears to be stated age is fatigued but directable, and cooperative. Behavior: Patient is calmly laying without any agitated behavior. Speech: Patient's speech is fluent and nonpressured. Mood/Affect: Mood is improving mildly, affect is congruent and constricted. Suicidality/Homicidality: Patient denies having any suicidal or homicidal ideation intent or plan. Perceptions: Patient denies any visual hallucinations however he does report auditory hallucinations, lessening in intensity Though content/process: There is no evidence of any delusional thought content and thought process is linear and goal-directed. Memory and concentration: AOX3, grossly intact for the purposes of this session Judgment and insight: Improving mildly Assessment Psychosis, unspecified Rule out substance-induced psychotic disorder Alcohol use disorder, in remission Opioid use disorder, in remission Rule out stimulant use disorder Cannabis use disorder Plan: -Patient continues to meet criteria for inpatient psychiatric admission for symptom stabilization and safety. Patient has signed adult voluntary form and medication consent and was placed in patient's chart. -Medications: Increase Seroquel to 25 mg daily and 150 mg at bedtime for psychosis -When necessary Haldol for agitation/aggression. -Labs: Creatinine was elevated at 1.95 with low TSH with repeat CMP/free T4 ordered and collected this morning, awaiting results -SW on board for discharge planning. Encouraged the patient to participate in milieu.
[2024-12-27 12:26] LABS: ALT 31 U/L (4-49); AST 33 U/L (17-59); African American GFR (CKD) 43 (>60 ml/min/1.73 sqM); Albumin 4.2 g/dL (3.5-5.0); Alkaline Phosphatase 92 U/L (38-126); Anion Gap 12 mmol/L; Blood Urea Nitrogen 36 mg/dL (9-20); Calcium 10.2 mg/dL (8.4-10.2); Carbon Dioxide 23 mmol/L (22-30); Chloride 106 mmol/L (98-107); Glucose 78 mg/dL (74-99); Non-African American GFR(CKD) 38 (>60 ml/min/1.73 sqM); Potassium 4.8 mmol/L (3.5-5.1); Sodium 141 mmol/L (137-145); Total Protein 6.9 g/dL (6.3-8.2)
[2024-12-27 12:42] LABS: T4, Free (Free Thyroxine) 0.95 ng/dL (0.78-2.19)
[2024-12-27] MEDS: HYDROcodone/APAP 5-325MG 1 EACH TAB PO PRN (18:24)
[2024-12-27 20:28] LABS: Amylase 75 U/L (30-110); Lipase 148 U/L (23-300)
[2024-12-27] MEDS: QUEtiapine 100 MG TAB PO SCH (20:30)
--- NOTE | 2024-12-28 12:41 | P.PN ---
Progress Note - Text Progress Note Date: 12/28/24 Interval History: Patient was seen laying in bed and was directable and agreeable to speak with va underwriter in the room. Patient reports a great nights sleep and absolutely no voices at all. Patient states that he is eager to get home soon because he is in school and needs to contact his professor by Thursday to request an extension on his assignments. Patient rates anxiety and depression low stating that the majority of his anxiety is related to missing out on school while he is here. He denies side effects from the increased dose of Seroquel except for increased fatigue this morning. According to nursing staff, patient ate 50% of his breakfast this morning and patient reports an improved appetite. Patient encouraged to attend at least one group today, to which he was receptive. Of note patient did not require any as needed medications yesterday. At this time patient denies any suicidal or homicidal ideations, intent or plan. Patient denies any auditory, visual hallucinations and denies any paranoia or delusions. Patient denies any side effects from the medications and has been compliant with meds. Mental Status Exam: General Appearance: Patient appears to be stated age is alert, directable, and cooperative. Behavior: Patient is calmly laying without any agitated behavior. Speech: Patient's speech is fluent and nonpressured. Mood/Affect: Mood is improving mildly, affect is congruent and more reactive. Suicidality/Homicidality: Patient denies having any suicidal or homicidal ideation intent or plan. Perceptions: Patient denies any visual hallucinations and denies any auditory hallucinations Though content/process: There is no evidence of any delusional thought content and thought process is linear and goal-directed. Memory and concentration: AOX3, grossly intact for the purposes of this session Judgment and insight: Improving mildly Assessment Psychosis, unspecified Rule out substance-induced psychotic disorder Alcohol use disorder, in remission Opioid use disorder, in remission Rule out stimulant use disorder Cannabis use disorder Plan: -Patient continues to meet criteria for inpatient psychiatric admission for symptom stabilization and safety. Patient has signed adult voluntary form and medication consent and was placed in patient's chart. -Medications: Continue Seroquel 25 mg daily and 150 mg at bedtime for psychosis -When necessary Haldol for agitation/aggression. -Labs: Repeat creatinine was 2.15 however chart review did reveal patient does have baseline elevated creatinine with a range from 1.49-2.13 given his kidney disease, free T4 was WNL -SW on board for discharge planning. Encouraged the patient to participate in milieu. Anticipate discharge home with grandmother on Thursday
[2024-12-29 09:35] VITALS: BP 132/81; PULSE 115; RESP 16; TEMP 97.2
--- NOTE | 2024-12-29 12:35 | P.DS ---
Providers Date of admission: 12/24/24 14:18 Expected date of discharge: 12/29/24 Attending physician: Breanne Beth MD Consults: 12/24/24 14:25 Consult Physician Routine Consulting Provider: Maksim Schultz Consult Reason/Comments: History and Physical, New Admission Do you want consulting provider notified?: Yes Primary care physician: Maksim Schultz - Discharge Diagnosis(es) (1) Unspecified psychosis Current Visit: Yes Status: Acute Priority: High (2) Alcohol use disorder in remission Current Visit: No Status: Chronic Priority: Low (3) Opioid use disorder in remission Current Visit: No Status: Chronic Priority: Low (4) Cannabis use disorder Current Visit: Yes Status: Acute Priority: Low Hospital Course: Admission HPI: Admission note was completed by Dr. Landry "Patient presented to the hospital early yesterday morning. Per EPS note, "Patient presented to ER with chief complaint of abdominal pain, EPS consulted once patient was medically clear r/t hallucinations. Patient assessed in ER13 from [id number]. Patient denies any psychiatric history but verbalizes opening services with [facility] recently and had an appointment with the geriatric case manager in September. [facility] confirmed patient seen on 10/04/2024 with diagnosis unspecified anxiety disorder. Patient also diagnosed with alcohol use disorder and opioid use disorder, both in remission. Patient verbalizes presenting problem of auditory and visual hallucinations. Patient states that he did not mention his problem to [facility] or his PCP because he has been attempting to "live through it". Patient verbalizes auditory hallucinations describing them as loud conversations around him, people talking but not being able to make out what they are saying. Patient states that the voices have worsened recently and so bad that he is struggling to do day to day activities and also struggling caring for his basic needs such as eating, sleeping, or maintaining his hygiene. Patient states visual hallucinations and describes that he feels like everything is moving around and taking new shapes. Patient states that these symptoms have been ongoing for about a year but started off intermittent and did not interfere with his life, but have recently worsened and does not know how to deal or cope with these symptoms. Patient verbalizes that he struggles for sleeping with both difficulty falling and staying asleep and notes staying awake for days at a time. Patient describes difficulty with appetite at this time. Patient describes feeling overwhelmed with anxiety, restlessness, and being more and more forgetful. Patient states that he is sober from alcohol since 2019 and sober from narcotics since 2016. Patient UDS+ tricyclic antidepressants, amphetamines, benzos, and marijuana. Patient is prescribed adderall, seroquel, valium, and losartan/hctz. Verbalizes maintaining compliance with home medications." He reports the voices are "really bad right now", reports hearing really loud pitch, hears people talking. He reports the voices started over a year ago. He appears distressed by the voices. He admits to drinking 2-4 RedBulls per day plus taking Adderall 30 mg BID. He does not appear to have paranoid delusions. Patient denies any flight of ideas racing thoughts and increased in goal directed behavior. Patient denies any suicidal or homicidal ideation, intent or plan. He reports difficulty falling and staying asleep and takes double the dose of Seroquel 50 mg tabs, so he takes 100 mg nightly in order to sleep. He received Haldol 5 mg po x 1 and Ativan 1mg po x1 last night and again this morning for hallucinations and reports the Haldol helped some. 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 He reports he smokes a "little weed here and there." UDS was positive for THC, amphetamines, benzodiazepines. He denies tobacco use. He reports he is prescribed Adderall for his ADHD and received benzodiazepines in the ER. He reports he has been taking Adderall since he was 9 years old. Reports he currently takes Adderall 30 mg BID. He states he has not done hallucinogens since high school. He thinks he took too much of his Adderall, thinks he took three 30 mg pills (90 mgs) at once over a year ago and has been hearing voices since then. He reports his visual perception is distorted, wavy." Hospital course: Upon admission to the unit patient was directable and agreeable to commence treatment and signed adult voluntary form. Patient got along well with other patients on the unit and followed unit protocol. Patient was compliant with the medications and denied any side effects throughout hospital course. Patient was started on Seroquel and this was increased to 25 mg daily and 150 mg at bedtime for psychosis. Patient spoke of his stressors and engaged in therapy both group and individual. Patient was also seen by medical team for history and physical exam. Throughout the course of the hospitalization patient gradually improved with regards to mood, anxiety, sleep and returned back to their baseline level of functioning. On the day of discharge patient denied any suicidal or homicidal ideations intent or plan denied any auditory or visual hallucinations. The patient denied any access to guns or weapons. Patient denied any paranoia and did not endorse any delusions. Patient does not have a significant history of substance abuse and was counseled on abstaining from all substances including alcohol and marijuana. Patient was also counseled on the medications and need for regular compliance and was encouraged to follow-up with their outpatient appointment for mental health and also for primary care. Prior to discharge a family meeting will be arranged by mental health social worker to answer any questions and ensure safety upon discharge including making sure that guns/weapons are either removed from the home or locked away. Patient to be discharged home with grandmother on follow-up with [facility] Mental status exam: General Appearance: Patient appears to be stated age is alert, pleasant, and cooperative. Patient is in no acute distress and has improved hygiene and grooming Behavior: Patient is calmly seated without any agitated behavior. Speech: Patient's speech is fluent and nonpressured. Mood/Affect: Patient reports their mood is "good", affect is congruent and euthymic, bright. Suicidality/Homicidality: Patient denies having any suicidal or homicidal ideation intent or plan. Perceptions: Patient denies any auditory or visual hallucinations. Though content/process: There is no evidence of any delusional thought content and thought process is linear and goal-directed. More future oriented Memory and concentration: AOX3, grossly intact for the purposes of this session. Can spell "WORLD" backwards correctly. Judgment and insight: Fair Impression: Psychosis, unspecified Rule out substance-induced psychotic disorder Rule out stimulant use disorder Alcohol use disorder, in remission Opioid use disorder, in remission Cannabis use disorder Plan: -Continue with discharge today as patient has improved and stabilized psychiatrically and is not currently an imminent threat to themself and/or others. -Continue medications: Seroquel 25 mg daily and 150 mg at bedtime -Patient was counseled on the need for medication compliance and appropriate follow-up at mental health and also primary care for medical issues. Patient verbalized understanding and agreed. -Social work to help coordinate patients discharge today arrange for and conduct family meeting to ensure safety upon discharge and answer any q uestions/concerns. also to ensure safe home environment that guns/weapons are either removed from the home or locked away. Social work also to arrange for patients follow up appointments with [facility] for psychiatric care along with follow up with primary care provider. -Patient counseled on abstaining from recreational drugs and marijuana and alcohol. Was informed/educated on the adverse effects on their physical and mental health. Patient verbally agreed and understood. -Patient was instructed to return to the hospital or seek immediate medical care if their psychiatric or medical symptoms do worsen or reoccur. Abnormal Labs 12/24/24 12/24/24 12/24/24 01:55 01:55 03:24 Chloride 111 H BUN 29 H Creatinine 1.95 H Glucose 103 H Total Protein 5.9 L Triglycerides 241.00 H VLDL Cholesterol, Calc 48.20 H TSH 0.158 L Urine Protein 1+ H U Tricyclic Antidepress Detected H Ur Amphetamines Screen Detected H U Benzodiazepines Scrn Detected H U Marijuana (THC) Screen Detected H 12/27/24 09:55 Chloride BUN 36 H Creatinine 2.15 H Glucose Total Protein Triglycerides VLDL Cholesterol, Calc TSH Urine Protein U Tricyclic Antidepress Ur Amphetamines Screen U Benzodiazepines Scrn U Marijuana (THC) Screen Allergies Allergy/AdvReac Type Severity Reaction Status Date / Time No Known Allergies Allergy Verified 12/24/24 12:51 Vital Signs Temp 97.2 F L 12/29/24 09:00 Pulse 115 H 12/29/24 09:00 Resp 16 12/29/24 09:00 BP 132/81 12/29/24 09:00 Pulse Ox 97 12/29/24 09:00 FiO2 Patient Condition at Discharge: Stable Plan - Discharge Summary New Discharge Prescriptions: New QUEtiapine [SEROquel] 25 mg PO DAILY 30 Days #30 tab Losartan-Hctz 50-12.5 mg [Hyzaar 50-12.5] 1 each PO DAILY 30 Days #30 tab QUEtiapine [SEROquel] 150 mg PO HS 30 Days #45 tab Continue Losartan-Hctz 50-12.5 mg [Hyzaar 50-12.5] 1 tab PO DAILY Discontinued diazePAM 2 mg PO HS PRN PRN Reason: ANXIETY/SLEEP Dextroamphetamine/Amphetamine [Adderall] 30 mg PO BID QUEtiapine [SEROquel] 50 mg PO HS Discharge Medication List Losartan-Hctz 50-12.5 mg [Hyzaar 50-12.5] 1 tab PO DAILY 12/24/24 [History] Losartan-Hctz 50-12.5 mg [Hyzaar 50-12.5] 1 each PO DAILY 30 Days #30 tab 12/29/24 [Rx] QUEtiapine [SEROquel] 25 mg PO DAILY 30 Days #30 tab 12/29/24 [Rx] QUEtiapine [SEROquel] 150 mg PO HS 30 Days #45 tab 12/29/24 [Rx] Follow up Appointment(s)/Referral(s): [facility] [Outside] - 01/02/25 1:00 pm (01/02 at 1pm with Octavia Chanel 01/09 at 9am with Gina Carrillo NP) Maksim Schultz MD [Primary Care Provider] - 1-2 days Patient Instructions/Handouts: Brief Psychotic Disorder (DC) Activity/Diet/Wound Care/Special Instructions: [facility] Discharge Info Avoid the use of street drugs and alcohol. Take all medications as prescribed. When you are in need of refills on your medications, please contact your outpatient medical provider and/or outpatient psychiatrist. Please go to your scheduled outpatient appointments for aftercare treatment. If symptoms return or become worse, call the crisis line at or and/or visit the nearest emergency room for assistance. National Suicide and Crisis Lifeline - call or text 118. Discharge Disposition: HOME SELF-CARE
== END 2024-12-29 12:53 | disposition home or self-care (01) | DRG 750 ==
LOC: EC 01:32 → 3MHU 14:18
PROVIDERS: ADMIT Psychiatry & Neurology Psychiatry; ATTEND Psychiatry & Neurology Psychiatry
DX: F29 Unspecified psychosis not due to a substance or known physiological condition (principal); F41.9 Anxiety disorder, unspecified; F32.A Depression, unspecified; F10.21 Alcohol dependence, in remission; F11.21 Opioid dependence, in remission; F90.9 Attention-deficit hyperactivity disorder, unspecified type; Z79.899 Other long term (current) drug therapy; Z81.1 Family history of alcohol abuse and dependence; Z81.3 Family history of other psychoactive substance abuse and dependence; Z87.19 Personal history of other diseases of the digestive system; I12.9 Hypertensive chronic kidney disease with stage 1 through stage 4 chronic kidney disease, or unspecified chronic kidney disease; E86.0 Dehydration; F12.10 Cannabis abuse, uncomplicated; Z87.828 Personal history of other (healed) physical injury and trauma; N18.9 Chronic kidney disease, unspecified
CPT/HCPCS: 36415; 80053; 80061; 80306; 81001; 82150; 83036; 83605; 83690; 84439; 84443; 85025; 87636; 96361; 96374; 96375; 99285